=== PATIENT | female | born 1970 | race Caucasian/White ===

== ENCOUNTER 2016-08-05 08:42 | Inpatient (IN) | payer MEDICARE, OTHER ==
[2016-08-05] MEDS ORDERED: RX INFO: IV CONTRAST WAS GIVEN 1 EACH MISC MISCELLANE PRN (09:29)
[2016-08-05] MEDS ORDERED: IOHEXOL 350 MG/ML 25 ML BOTTLE (ORAL USE) PO PRN (09:31)
[2016-08-05 10:02] LABS: Basophils # (A) 0.1 k/uL (0-0.2); Basophils % (A) 1 %; CH 27.5; CHCM 33.7; Eosinophils # (A) 0.1 k/uL (0-0.7); Eosinophils % (A) 1 %; HDW 3.06; HGB 10.7 gm/dL (11.4-16.0); Luc # (Auto) 0.11; Luc % (Auto) 2; Lymphocytes # (A) 1.8 k/uL (1.0-4.8); Lymphocytes % (A) 25 %; MCH 26.6 pg (25.0-35.0); MCHC 32.5 g/dL (31.0-37.0); MCV 81.7 fL (80.0-100.0); Mean Platelet Volume 7.3; Monocytes # (A) 0.3 k/uL (0-1.0); Monocytes % (A) 4 %; Neutrophils # (A) 4.7 k/uL (1.3-7.7); Neutrophils % (A) 67 %; RBC 4.03 m/uL (3.80-5.40); RDW 15.6 % (11.5-15.5); WBC 7.1 k/uL (3.8-10.6)
[2016-08-05 10:14] LABS: Appearance,Urine Clear (Clear); Bacteria,Urine Rare /hpf; Bilirubin,Urine Negative (Negative); Glucose,Urine (UA) Negative (Negative); Ketones,Urine Negative (Negative); Leukocyte Esterase,Urine Negative (Negative); Mucus,Urine Occasional /hpf; Nitrite,Urine Negative (Negative); Particle Count 6281; Protein,Urine Trace (Negative); RBC,Urine >182 /hpf (0-5); Specific Gravity,Urine 1.023 (1.001-1.035); Squamous Epithelial Cell,Urine 1 /hpf (0-4); UA Billing (MACRO vs. MICRO) MICRO; WBC,Urine 7 /hpf (0-5)
[2016-08-05] MEDS ORDERED: HYDROmorphone 1 MG/ML 1 ML SYRINGE IVP STA ×2 (10:17→10:53)
[2016-08-05] MEDS ORDERED: SODIUM CHLORIDE 0.9% 1,000 ML IV STA ×2 (10:17→10:55)
[2016-08-05] MEDS ORDERED: METOCLOPRAMIDE 5 MG/ML 2 ML VIAL IVP STA (10:17)
--- NOTE | 2016-08-05 10:20 | ED ---
General Adult HPI <Don Lake - Last Filed: 08/05/16 10:56> - General Source: patient, RN notes reviewed Mode of arrival: ambulatory Limitations: no limitations <Gemma Garibay - Last Filed: 08/05/16 11:40> - General Chief complaint: Nausea/Vomiting/Diarrhea Stated complaint: vomiting Time Seen by Provider: 08/05/16 09:46 - History of Present Illness Initial comments: 46-year-old female presents to the emergency department with a chief complaint of abdominal pain Patient states she's had abdominal pain for the last week or so. Patient states she has not had a bowel movement. He states that she needs to drink anything she had instant pain and feels nauseous. Patient states she has had multiple abdominal surgeries she's also underwent gastric bypass Dr. Gabriel. Patient states that she was concerned due to the intense abdominal pain so she called on-call surgical and she was referred to come here.Patient denies any recent fever, chills, shortness of breath, chest pain, back pain, vomiting, numbness or tingling, dysuria or hematuria, constipation or diarrhea, headaches or visual changes, or any other current symptoms. (Gemma Garibay) - Related Data Home Medications Medication Instructions Recorded Confirmed rOPINIRole HCL [Requip] 2 mg PO TID 09/21/14 08/05/16 Gabapentin 800 mg PO QID 03/30/15 08/05/16 Thiamine [Vitamin B-1] 100 mg PO DAILY 03/30/15 08/05/16 Albuterol Inhaler [Ventolin Hfa 2 puff INHALATION RT-Q6H PRN 11/28/15 08/05/16 Inhaler] Budesonide [Pulmicort Flexhaler] 2 puff INHALATION RT-BID 11/28/15 08/05/16 Cyanocobalamin [Vitamin B-12] 1,000 mcg PO DAILY 11/28/15 08/05/16 Calcium Carbonate [Calcium] 600 mg PO DAILY 08/05/16 08/05/16 Cholecalciferol [Vitamin D3] 5,000 unit PO DAILY 08/05/16 08/05/16 Cyclobenzaprine [Flexeril] 10 mg PO BID 08/05/16 08/05/16 Ferrous Sulfate [Feosol] 325 mg PO DAILY 08/05/16 08/05/16 Lisinopril [Zestril] 20 mg PO DAILY 08/05/16 08/05/16 Multivitamins, Thera [Multivitamin 1 tab PO DAILY 08/05/16 08/05/16 (formulary)] QUEtiapine [SEROquel] 50 mg PO HS 08/05/16 08/05/16 Scopolamine 1.5MG/72Hr Patch 1 patch TRANSDERM Q72H PRN 08/05/16 08/05/16 [TransDerm Scop] Sertraline [Zoloft] 50 mg PO DAILY 08/05/16 08/05/16 Zinc 50 mg PO DAILY 08/05/16 08/05/16 traMADol HCL [Ultram] 50 mg PO TID PRN 08/05/16 08/05/16 Allergies Allergy/AdvReac Type Severity Reaction Status Date / Time Sulfa (Sulfonamide Allergy Severe Anaphylaxis Verified 08/05/16 09:32 Antibiotics) morphine Allergy Itching Verified 08/05/16 09:32 adhesive AdvReac Itching Verified 08/05/16 09:32 artificial sweetners Allergy Nausea Uncoded 08/05/16 08:45 Review of Systems ROS Other: All systems not noted in ROS Statement are negative. <Don Lake - Last Filed: 08/05/16 10:56> ROS Other: All systems not noted in ROS Statement are negative. <Gemma Garibay - Last Filed: 08/05/16 11:40> ROS Statement: Those systems with pertinent positive or pertinent negative responses have been documented in the HPI. Past Medical History Past Medical History: Asthma, Blood Disorder, Chest Pain / Angina, COPD, Diabetes Mellitus, Fibromyalgia, GERD/Reflux, Hearing Disorder / Deafness, Hyperlipidemia, Hypertension, Liver Disease, Mitral Valve Prolapse (MVP), Osteoarthritis (OA), Respiratory Disorder, Sleep Apnea/CPAP/BIPAP Additional Past Medical History / Comment(s): MIGRAINES, MITRAL VALVE PROLAPSE, DEGENERATIVE DISC DISEASE, FATTY LIVER, 4 PINCHED NERVES, LEIDEN FACTOR 5, 20% HEARING LOSS ELIDIA., OCCASIONAL SWELLING IN LOWER EXT.NEUROPATHY, RLS, diabetes is in remission since surgery History of Any Multi-Drug Resistant Organisms: None Reported Past Surgical History: Adenoidectomy, Appendectomy, Bariatric Surgery, Breast Surgery, Section, Cholecystectomy, Ear Surgery, Heart Catheterization, Hernia Repair, Orthopedic Surgery, Tonsillectomy Additional Past Surgical History / Comment(s): ARTHROSCOPY RT KNEE X3, RT BREAST BX-NEG, (13) MYRINGOTOMYS. laparoscopic danielle-en-y with lysis of adhesions 10-26-13, Surgical wound debridement x3 10/26/13, SX TO REMOVED SCAR TISSUE FROM PREVIOUS ABDSX.EGD 09/08/14, 09-21-14 LAP EXAM- APPY SMALL BOWEL OBSTRUCTION LYSIS OFF ADHESIONS, 3 hernia repairs, 3 bowel resection Past Anesthesia/Blood Transfusion Reactions: No Reported Reaction Additional Past Anesthesia/Blood Transfusion Reaction / Comment(s): SEVERE HEADACHE AFTER LAST SCOPE Past Psychological History: Anxiety, Bipolar, Depression, PTSD Smoking Status: Former smoker Past Alcohol Use History: None Reported Past Drug Use History: None Reported - Past Family History Mother Family Medical History: Deep Vein Thrombosis (DVT), Hypertension, Pulmonary Embolus, Thyroid Disorder Additional Family Medical History / Comment(s): FACTOR 5 LEIDEN, MVP Father Family Medical History: Diabetes Mellitus, Hypertension, Myocardial Infarction ( [place]) Additional Family Medical History / Comment(s): AGE 59 [place] <Gemma Garibay - Last Filed: 08/05/16 11:40> General Exam <Don Lake - Last Filed: 08/05/16 10:56> Limitations: no limitations <Gemma Garibay - Last Filed: 08/05/16 11:40> - General Exam Comments Initial Comments: General: The patient is awake and alert, in no distress, and does not appear acutely ill. Eye: Pupils are equal, round and reactive to light, extra-ocular movements are intact; there is normal conjunctiva bilaterally. No signs of icterus. Ears, nose, mouth and throat: There are moist mucous membranes. Neck: The neck is supple, there is no tenderness. Cardiovascular: There is a regular rate and rhythm. No murmur, rub or gallop is appreciated. Respiratory: Lungs are clear to auscultation, respirations are non-labored, breath sounds are equal. No wheezes, stridor, rales, or rhonchi. Gastrointestinal: Soft, non-distended, mildly diffusely tender abdomen without masses or organomegaly noted. There is no rebound or guarding present. No CVA tenderness. Bowel sounds are unremarkable. Back: There is no tenderness to palpation in the midline. There is no obvious deformity. No rashes noted. Musculoskeletal: Normal ROM, no tenderness, There is no pedal edema. There is no calf tenderness or swelling. Sensation intact. Pulses equal bilaterally 2+. Neurological: CN II-XII intact, There are no obvious motor or sensory deficits. Coordination appears grossly intact. Speech is normal. Skin: Skin is warm and dry and no rashes or lesions are noted. Psychiatric: Cooperative, appropriate mood & affect, normal judgment. (Gemma Garibay) Course <Don Lake - Last Filed: 08/05/16 10:56> <Gemma Garibay - Last Filed: 08/05/16 11:40> Vital Signs 08/05/16 08:44 Temperature 98.0 F Pulse Rate 69 Respiratory 20 Rate Blood Pressure 198/80 O2 Sat by Pulse 99 Oximetry - Reevaluation(s) Reevaluation #1: 08/05/16 10:56 Patient reexamined by myself, Dr. Lake. Patient resting comfortably in bed still complains of discomfort 09/27. Patient states she's had this several times and usually the CAT scan is normal. Results reviewed. Abdomen soft with mild mid abdominal tenderness to palpation. Case was discussed in detail with Dr. Gabriel, who will admit her patient to observation and recommends IV fluids. (Don Lake) Medical Decision Making - Lab Data Result diagrams: 08/05/16 09:35 08/05/16 09:35 <Don Lake - Last Filed: 08/05/16 10:56> - Lab Data Result diagrams: 08/05/16 09:35 08/05/16 09:35 - Radiology Data Radiology results: report reviewed, image reviewed <Gemma Garibay - Last Filed: 08/05/16 11:40> - Medical Decision Making 46-year-old female presents to the emergency Department chief complaint of abdominal pain. At this time patient's CAT scan lab work is reviewed. Dr. Gabriel was contacted and we will with the patient to observation. Continue to clean the patient nothing by mouth and continue IV fluids. This was discussed patient and she hasn't agreement with plan (Gemma Garibay) - Lab Data Lab Results 08/05/16 08/05/16 08/05/16 Range/Units 09:35 09:35 09:35 WBC 7.1 (3.8-10.6) k/uL RBC 4.03 (3.80-5.40) m/uL Hgb 10.7 L (11.4-16.0) gm/dL Hct 33.0 L (34.0-46.0) % MCV 81.7 (80.0-100.0) fL MCH 26.6 (25.0-35.0) pg MCHC 32.5 (31.0-37.0) g/dL RDW 15.6 H (11.5-15.5) % Plt Count 249 (150-450) k/uL Neutrophils % 67 % Lymphocytes % 25 % Monocytes % 4 % Eosinophils % 1 % Basophils % 1 % Neutrophils # 4.7 (1.3-7.7) k/uL Lymphocytes # 1.8 (1.0-4.8) k/uL Monocytes # 0.3 (0-1.0) k/uL Eosinophils # 0.1 (0-0.7) k/uL Basophils # 0.1 (0-0.2) k/uL Sodium 140 (137-145) mmol/L Potassium 3.7 (3.5-5.1) mmol/L Chloride 104 (98-107) mmol/L Carbon Dioxide 25 (22-30) mmol/L Anion Gap 11 mmol/L BUN 9 (7-17) mg/dL Creatinine 0.50 L (0.52-1.04) mg/dL Est GFR (MDRD) Af Amer >60 (>60 ml/min/1.73 sqM) Est GFR (MDRD) Non-Af >60 (>60 ml/min/1.73 sqM) Glucose 123 H (74-99) mg/dL Plasma Lactic Acid Esteban 1.1 (0.7-2.0) mmol/L Calcium 8.9 (8.4-10.2) mg/dL Total Bilirubin 0.7 (0.2-1.3) mg/dL AST 27 (14-36) U/L ALT 33 (9-52) U/L Alkaline Phosphatase 125 (38-126) U/L Total Protein 7.0 (6.3-8.2) g/dL Albumin 4.2 (3.5-5.0) g/dL Amylase 54 (30-110) U/L Lipase 45 (23-300) U/L Urine Color Urine Appearance (Clear) Urine pH (5.0-8.0) Ur Specific [place] (1.001-1.035) Urine Protein (Negative) Urine Glucose (UA) (Negative) Urine Ketones (Negative) Urine Blood (Negative) Urine Nitrite (Negative) Urine Bilirubin (Negative) Urine Urobilinogen (<2.0) mg/dL Ur Leukocyte Esterase (Negative) Urine RBC (0-5) /hpf Urine WBC (0-5) /hpf Ur Squamous Epith Cells (0-4) /hpf Urine Bacteria (None) /hpf Urine Mucus (None) /hpf 08/05/16 Range/Units 09:35 WBC (3.8-10.6) k/uL RBC (3.80-5.40) m/uL Hgb (11.4-16.0) gm/dL Hct (34.0-46.0) % MCV (80.0-100.0) fL MCH (25.0-35.0) pg MCHC (31.0-37.0) g/dL RDW (11.5-15.5) % Plt Count (150-450) k/uL Neutrophils % % Lymphocytes % % Monocytes % % Eosinophils % % Basophils % % Neutrophils # (1.3-7.7) k/uL Lymphocytes # (1.0-4.8) k/uL Monocytes # (0-1.0) k/uL Eosinophils # (0-0.7) k/uL Basophils # (0-0.2) k/uL Sodium (137-145) mmol/L Potassium (3.5-5.1) mmol/L Chloride (98-107) mmol/L Carbon Dioxide (22-30) mmol/L Anion Gap mmol/L BUN (7-17) mg/dL Creatinine (0.52-1.04) mg/dL Est GFR (MDRD) Af Amer (>60 ml/min/1.73 sqM) Est GFR (MDRD) Non-Af (>60 ml/min/1.73 sqM) Glucose (74-99) mg/dL Plasma Lactic Acid Esteban (0.7-2.0) mmol/L Calcium (8.4-10.2) mg/dL Total Bilirubin (0.2-1.3) mg/dL AST (14-36) U/L ALT (9-52) U/L Alkaline Phosphatase (38-126) U/L Total Protein (6.3-8.2) g/dL Albumin (3.5-5.0) g/dL Amylase (30-110) U/L Lipase (23-300) U/L Urine Color Yellow Urine Appearance Clear (Clear) Urine pH 6.0 (5.0-8.0) Ur Specific [place] 1.023 (1.001-1.035) Urine Protein Trace H (Negative) Urine Glucose (UA) Negative (Negative) Urine Ketones Negative (Negative) Urine Blood Large H (Negative) Urine Nitrite Negative (Negative) Urine Bilirubin Negative (Negative) Urine Urobilinogen 4.0 (<2.0) mg/dL Ur Leukocyte Esterase Negative (Negative) Urine RBC >182 H (0-5) /hpf Urine WBC 7 H (0-5) /hpf Ur Squamous Epith Cells 1 (0-4) /hpf Urine Bacteria Rare H (None) /hpf Urine Mucus Occasional H (None) /hpf Disposition <Don Lake - Last Filed: 08/05/16 10:56> Time of Disposition: 11:40 Decision Date: 08/05/16 Decision Time: 11:40 <Gemma Garibay - Last Filed: 08/05/16 11:40> Clinical Impression: Intractable abdominal pain Disposition: ADMITTED IP TO THIS [facility] Condition: Stable Referrals: Lucía Pratt MD [Primary Care Provider] - 1-2 days
[2016-08-05 10:26] LABS: ALT 33 U/L (9-52); AST 27 U/L (14-36); Alkaline Phosphatase 125 U/L (38-126); Anion Gap 11 mmol/L; Blood Urea Nitrogen 9 mg/dL (7-17); Calcium 8.9 mg/dL (8.4-10.2); Carbon Dioxide 25 mmol/L (22-30); Chloride 104 mmol/L (98-107); Glucose 123 mg/dL (74-99); Non-African American GFR(MDRD) >60 (>60 ml/min/1.73 sqM); Potassium 3.7 mmol/L (3.5-5.1); Sodium 140 mmol/L (137-145); Total Bilirubin 0.7 mg/dL (0.2-1.3)
[2016-08-05 10:27] LABS: Amylase 54 U/L (30-110)
--- NOTE | 2016-08-05 10:44 | CT ---
EXAMINATION TYPE: CT abdomen pelvis w con DATE OF EXAM: 08/05/2016 COMPARISON: NONE HISTORY: Pain, bariatric surgery history of multiple bowel obstructions CT DLP: 1659.2 mGycm Automated exposure control for dose reduction was used. CONTRAST: CT scan of the abdomen pelvis is performed with IV Contrast, patient injected with 100 mL of Omnipaqu e 300. FINDINGS- LUNG BASES- No significant abnormality is appreciated. LIVER/GB-post cholecystectomy changes noted. PANCREAS- No gross abnormality is seen. SPLEEN- No gross abnormality is seen. ADRENALS- No gross abnormality is seen. KIDNEYS/BLADDER- no hydronephrosis or hydronephrosis. Hypodensities within the kidneys are too small to characterize. BOWEL- no bowel dilatation. Bowel gas pattern nonspecific with evidence of previous surgery. LYMPH NODES- No greater than 1cm abdominal or pelvic lymph nodes areappreciated. OSSEOUS STRUCTURES-hypertrophic and degenerative change of the spine. Canal stenosis involving the lo wer lumbar spine suspected.. OTHER- 1 cm hypoattenuation right adnexa may be related to small ovarian cyst. IMPRESSION- 1. Bowel gas pattern is nonspecific with no dilation seen to suggest obstruction. Appendix is not see n exam nondiagnostic for appendicitis. No inflammatory changes right lower quadrant. 2. Small fluid density structure right adnexa likely related to small ovarian cyst measuring 1.7 cm
[2016-08-05] MEDS ORDERED: ONDANSETRON 4 MG/2 ML VIAL IVP STA (10:53)
[2016-08-05] MEDS ORDERED: NALOXONE 0.4 MG/ML 1 ML VIAL IV PRN (11:40)
[2016-08-05] MEDS ORDERED: traMADol 50 MG TAB PO PRN (11:41)
[2016-08-05] MEDS ORDERED: ALBUTEROL NEBULIZED 2.5 MG/3 ML INHALATION PRN (11:41)
[2016-08-05] MEDS ORDERED: SCOPOLAMINE 1.5MG/72HR PATCH TRANSDERM PRN (11:41)
[2016-08-05] MEDS ORDERED: SODIUM CHLORIDE 0.9% 3,000 ML IV ONE (13:08)
[2016-08-05 13:26] VITALS: BMI 41.5
[2016-08-05] MEDS: SODIUM CHLORIDE 0.9% 1,000 ML IV SCH ×2 (14:14→20:50)
[2016-08-05] MEDS: GABAPENTIN 400 MG CAP PO SCH ×3 (14:14→21:00)
[2016-08-05] MEDS: HYDROmorphone 1 MG/ML 1 ML SYRINGE IVP PRN ×2 (15:28→19:08)
[2016-08-05] MEDS ORDERED: DEXAMETHASONE SOD PHOSPHATE 10 MG/ML 1 ML VIAL IV STA (19:59)
--- NOTE | 2016-08-05 20:03 | P.GSHP ---
History of Present Illness H&P Date: 08/05/16 Chief Complaint: Abdominal pain The patient is a 46-year-old female with previous history of gastric bypass who comes in with a 5 day history of severe epigastric to left upper quadrant abdominal pain. She had developed pain after eating taco salad. She reports "puking all the time.". She's had previous multiple diagnostic laparoscopies for abdominal pain which had resolved secondary to lysis of adhesions. She reports immediate weight loss from 220+ pounds down to 213 pounds unintentionally. She reports difficulty with maintaining her fluid intake. She has been admitted secondary to severe dehydration as well as abdominal pain history of gastric bypass. - Review of Systems Comment: CONSTITUTIONAL: Denies any fever or chills. Maintain weight loss over 85 pounds. HEENT: Denies any trouble with vision, hearing or nosebleeds. Has difficulty swallowing. LYMPHATIC: The patient denies any lumps and bumps around the neck. ENDOCRINE: Denies any thyroid disorders. Has blood sugar glucose intolerance. RESPIRATORY: Denies pneumonia. Denies any troubles with breathing or dyspnea on exertion. CARDIOVASCULAR: Denies any chest pain, palpitations, or recent heart attacks. GASTROINTESTINAL: Has heart burn, constipation. No bright red blood per rectum. GENITOURINARY: Denies any blood in urine or increased urinary frequency. MUSCULOSKELETAL: Has back pain, stiffness, joint arthritis. NEUROLOGIC: Has fibromyalgia. No reports of stroke. PSYCHIATRIC: Denies depression or suidical ideation. HEMATOLOGIC: Denies any abnormal bleeding or bruising. Past Medical History Past Medical History: Asthma, Blood Disorder, Chest Pain / Angina, COPD, Diabetes Mellitus, Fibromyalgia, GERD/Reflux, Hearing Disorder / Deafness, Hyperlipidemia, Hypertension, Liver Disease, Mitral Valve Prolapse (MVP), Osteoarthritis (OA), Respiratory Disorder, Sleep Apnea/CPAP/BIPAP Additional Past Medical History / Comment(s): MIGRAINES, MITRAL VALVE PROLAPSE, DEGENERATIVE DISC DISEASE, FATTY LIVER, 4 PINCHED NERVES, LEIDEN FACTOR 5, 20% HEARING LOSS ELIDIA., OCCASIONAL SWELLING IN LOWER EXT.NEUROPATHY, RLS, diabetes is in remission since surgery History of Any Multi-Drug Resistant Organisms: None Reported Past Surgical History: Adenoidectomy, Appendectomy, Bariatric Surgery, Breast Surgery, Section, Cholecystectomy, Ear Surgery, Heart Catheterization, Hernia Repair, Orthopedic Surgery, Tonsillectomy Additional Past Surgical History / Comment(s): ARTHROSCOPY RT KNEE X3, RT BREAST BX-NEG, (13) MYRINGOTOMYS. laparoscopic danielle-en-y with lysis of adhesions 10-26-13, Surgical wound debridement x3 10/26/13, SX TO REMOVED SCAR TISSUE FROM PREVIOUS ABDSX.EGD 09/08/14, 09-21-14 LAP EXAM- APPY SMALL BOWEL OBSTRUCTION LYSIS OFF ADHESIONS, 3 hernia repairs, 3 bowel resection Past Anesthesia/Blood Transfusion Reactions: No Reported Reaction Additional Past Anesthesia/Blood Transfusion Reaction / Comment(s): SEVERE HEADACHE AFTER LAST SCOPE Past Psychological History: Anxiety, Bipolar, Depression, PTSD Additional Psychological History / Comment(s): SOCIAL PHOBIA Smoking Status: Former smoker Past Alcohol Use History: None Reported Past Drug Use History: None Reported - Past Family History Mother Family Medical History: Deep Vein Thrombosis (DVT), Hypertension, Pulmonary Embolus, Thyroid Disorder Additional Family Medical History / Comment(s): FACTOR 5 LEIDEN, MVP Father Family Medical History: Diabetes Mellitus, Hypertension, Myocardial Infarction ( [place]) Additional Family Medical History / Comment(s): AGE 59 [place] Medications and Allergies Home Medications Medication Instructions Recorded Confirmed Type rOPINIRole HCL [Requip] 2 mg PO TID 09/21/14 08/05/16 History Gabapentin 800 mg PO QID 03/30/15 08/05/16 History Thiamine [Vitamin B-1] 100 mg PO DAILY 03/30/15 08/05/16 History Albuterol Inhaler [Ventolin Hfa 2 puff INHALATION RT-Q6H PRN 11/28/15 08/05/16 History Inhaler] Budesonide [Pulmicort Flexhaler] 2 puff INHALATION RT-BID 11/28/15 08/05/16 History Cyanocobalamin [Vitamin B-12] 1,000 mcg PO DAILY 11/28/15 08/05/16 History Calcium Carbonate [Calcium] 600 mg PO DAILY 08/05/16 08/05/16 History Cholecalciferol [Vitamin D3] 5,000 unit PO DAILY 08/05/16 08/05/16 History Cyclobenzaprine [Flexeril] 10 mg PO BID 08/05/16 08/05/16 History Ferrous Sulfate [Feosol] 325 mg PO DAILY 08/05/16 08/05/16 History Lisinopril [Zestril] 20 mg PO DAILY 08/05/16 08/05/16 History Multivitamins, Thera [Multivitamin 1 tab PO DAILY 08/05/16 08/05/16 History (formulary)] QUEtiapine [SEROquel] 50 mg PO HS 08/05/16 08/05/16 History Scopolamine 1.5MG/72Hr Patch 1 patch TRANSDERM Q72H PRN 08/05/16 08/05/16 History [TransDerm Scop] Sertraline [Zoloft] 50 mg PO DAILY 08/05/16 08/05/16 History Zinc 50 mg PO DAILY 08/05/16 08/05/16 History traMADol HCL [Ultram] 50 mg PO TID PRN 08/05/16 08/05/16 History Allergies Allergy/AdvReac Type Severity Reaction Status Date / Time Sulfa (Sulfonamide Allergy Severe Anaphylaxis Verified 08/05/16 09:32 Antibiotics) morphine Allergy Itching Verified 08/05/16 09:32 adhesive AdvReac Itching Verified 08/05/16 09:32 artificial sweetners Allergy Nausea Uncoded 08/05/16 08:45 Surgical - Exam Vital Signs Temp Pulse Resp BP Pulse Ox 98.0 F 69 20 198/80 99 08/05/16 08:44 08/05/16 08:44 08/05/16 08:44 08/05/16 08:44 08/05/16 08:44 GENERAL: Well developed and in no acute distress. Pleasant. HEENT: No sclera icterus. Extraocular movements grossly intact. Moist buccal mucosa. Head is atraumatic, normocephalic. Hears conversational speech. No nasal drainage. NECK: Supple without lymphadenopathy. No JV distention. CHEST: Non-labored respirations and equal bilateral excursions. CARDIOVASCULAR: Regular rate and rhythm. Palpable 2+ radial pulses. ABDOMEN: Soft. Nondistended. Mild tenderness along the epigastrium and left upper quadrant. No diffuse peritonitis. MUSCULOSKELETAL: No clubbing, cyanosis or edema. NEUROLOGIC: No focal or lateralizing signs. PSYCH: Appropriate affect. Alert and oriented to person, place and time. Results - Labs 08/05/16 09:35 08/05/16 09:35 Abnormal Lab Results - Last 24 Hours (Table) 08/05/16 08/05/16 08/05/16 Range/Units 09:35 09:35 09:35 Hgb 10.7 L (11.4-16.0) gm/dL Hct 33.0 L (34.0-46.0) % RDW 15.6 H (11.5-15.5) % Creatinine 0.50 L (0.52-1.04) mg/dL Glucose 123 H (74-99) mg/dL Urine Protein Trace H (Negative) Urine Blood Large H (Negative) Urine RBC >182 H (0-5) /hpf Urine WBC 7 H (0-5) /hpf Urine Bacteria Rare H (None) /hpf Urine Mucus Occasional H (None) /hpf Diabetes panel 08/05/16 Range/Units 09:35 Sodium 140 (137-145) mmol/L Potassium 3.7 (3.5-5.1) mmol/L Chloride 104 (98-107) mmol/L Carbon Dioxide 25 (22-30) mmol/L BUN 9 (7-17) mg/dL Creatinine 0.50 L (0.52-1.04) mg/dL Glucose 123 H (74-99) mg/dL Calcium 8.9 (8.4-10.2) mg/dL AST 27 (14-36) U/L ALT 33 (9-52) U/L Alkaline Phosphatase 125 (38-126) U/L Total Protein 7.0 (6.3-8.2) g/dL Albumin 4.2 (3.5-5.0) g/dL Calcium panel 08/05/16 Range/Units 09:35 Calcium 8.9 (8.4-10.2) mg/dL Albumin 4.2 (3.5-5.0) g/dL Pituitary panel 08/05/16 Range/Units 09:35 Sodium 140 (137-145) mmol/L Potassium 3.7 (3.5-5.1) mmol/L Chloride 104 (98-107) mmol/L Carbon Dioxide 25 (22-30) mmol/L BUN 9 (7-17) mg/dL Creatinine 0.50 L (0.52-1.04) mg/dL Glucose 123 H (74-99) mg/dL Calcium 8.9 (8.4-10.2) mg/dL Adrenal panel 06/18/17 Range/Units 09:35 Sodium 140 (137-145) mmol/L Potassium 3.7 (3.5-5.1) mmol/L Chloride 104 (98-107) mmol/L Carbon Dioxide 25 (22-30) mmol/L BUN 9 (7-17) mg/dL Creatinine 0.50 L (0.52-1.04) mg/dL Glucose 123 H (74-99) mg/dL Calcium 8.9 (8.4-10.2) mg/dL Total Bilirubin 0.7 (0.2-1.3) mg/dL AST 27 (14-36) U/L ALT 33 (9-52) U/L Alkaline Phosphatase 125 (38-126) U/L Total Protein 7.0 (6.3-8.2) g/dL Albumin 4.2 (3.5-5.0) g/dL - Imaging CT scan - abdomen: report reviewed, image reviewed CT scan - pelvis: report reviewed, image reviewed (No free air identified. No fluid collection or free fluid identified. No bowel obstruction identified.) Assessment and Plan (1) Dehydration, severe Status: Acute (2) Dysphagia Status: Acute (3) Intractable nausea and vomiting Status: Acute (4) Diabetes type 2, controlled Status: Chronic (5) H/O gastric bypass Status: Chronic (6) Morbid obesity with BMI of 40.0-44.9, adult Status: Chronic Plan: 1. I reviewed the findings of her computed tomography scan of her abdomen and pelvis. No acute findings of bowel obstruction was found. 2. Recommend IV fluid hydration over 3 L normal saline. 3. Recommend correction of electrolyte abnormalities. 4. With her history of dysphagia, recommend upper endoscopy possible balloon dilatation. 5. Antiemetics including Decadron. Time with Patient: Greater than 30
[2016-08-05] MEDS ORDERED: METOCLOPRAMIDE 5 MG/ML 2 ML VIAL IVP SCH (20:15)
[2016-08-05] MEDS: BUDESONIDE 1 MG/2 ML NEBU INHALATION SCH (20:28)
[2016-08-05] MEDS: POTASSIUM CHLORIDE 20 MEQ in WATER FOR INJECTION 1 100ML.BAG IVPB SCH ×2 (20:44→23:02)
[2016-08-05] MEDS: CYCLOBENZAPRINE 10 MG TAB PO SCH (20:48)
[2016-08-05] MEDS: QUEtiapine 50 MG TAB PO SCH (20:49)
[2016-08-06] MEDS: HYDROmorphone 1 MG/ML 1 ML SYRINGE IVP PRN ×6 (01:29→22:08)
[2016-08-06] MEDS: ONDANSETRON 4 MG/2 ML VIAL IVP PRN ×3 (01:29→18:39)
[2016-08-06 07:02] LABS: Basophils % (A) 0 %; CH 27.3; CHCM 33.5; Eosinophils % (A) 1 %; HCT 30.8 % (34.0-46.0); HDW 3.13; HGB 10.2 gm/dL (11.4-16.0); Luc # (Auto) 0.05; Luc % (Auto) 1; Lymphocytes # (A) 0.9 k/uL (1.0-4.8); Lymphocytes % (A) 14 %; MCH 27.1 pg (25.0-35.0); MCHC 33.2 g/dL (31.0-37.0); MCV 81.7 fL (80.0-100.0); Mean Platelet Volume 7.1; Monocytes # (A) 0.2 k/uL (0-1.0); Monocytes % (A) 3 %; Neutrophils # (A) 5.2 k/uL (1.3-7.7); Neutrophils % (A) 82 %; RBC 3.77 m/uL (3.80-5.40); RDW 15.2 % (11.5-15.5); WBC 6.4 k/uL (3.8-10.6); WBC (Perox) 6.61
[2016-08-06 07:15] LABS: ALT 28 U/L (9-52); AST 20 U/L (14-36); Alkaline Phosphatase 109 U/L (38-126); Anion Gap 9 mmol/L; Blood Urea Nitrogen 6 mg/dL (7-17); Calcium 8.8 mg/dL (8.4-10.2); Carbon Dioxide 26 mmol/L (22-30); Chloride 106 mmol/L (98-107); Glucose 163 mg/dL (74-99); Non-African American GFR(MDRD) >60 (>60 ml/min/1.73 sqM); Potassium 4.5 mmol/L (3.5-5.1); Sodium 141 mmol/L (137-145); Total Bilirubin 0.8 mg/dL (0.2-1.3); Total Protein 6.3 g/dL (6.3-8.2)
[2016-08-06] MEDS: BUDESONIDE 1 MG/2 ML NEBU INHALATION SCH ×2 (09:25→21:36)
[2016-08-06] MEDS ORDERED: PROPOFOL 10 MG/ML 20 ML VIAL IV ONE (09:44)
[2016-08-06] MEDS ORDERED: fentaNYL (PF) 50 MCG/ML 2 ML AMP ONE (09:44)
[2016-08-06] MEDS ORDERED: MIDAZOLAM 2 MG/2 ML VIAL ONE (09:44)
[2016-08-06] MEDS ORDERED: IV FLUID CONTINUATION 1,000 ML IV ONE (09:47)
--- NOTE | 2016-08-06 10:00 | P.PCN ---
Date of Procedure: 08/06/16 Preoperative Diagnosis: Dysphagia, epigastric abdominal pain Postoperative Diagnosis: Same Procedure(s) Performed: EGJ with balloon dilation 20 mm Implants: Anesthesia: MAC Surgeon: Latricia Dumont Pathology: none sent Condition: stable Indications for Procedure: Operative Findings: Scope advanced entire full length of the scope 100 cm. No additional pathology identified. Gastrojejunal jejunostomy balloon to 20 mm. Patient tolerated procedure well. Description of Procedure:
[2016-08-06] MEDS: SODIUM CHLORIDE 0.9% 1,000 ML IV SCH ×2 (10:56→22:00)
[2016-08-06] MEDS: CHOLECALCIFEROL 1,000 UNIT TAB PO SCH (10:57)
[2016-08-06] MEDS: CYANOCOBALAMIN 500 MCG TAB PO SCH (10:57)
[2016-08-06] MEDS: CALCIUM CARB-VIT D 500MG-200UN 1 EACH TAB PO SCH (10:57)
[2016-08-06] MEDS: FERROUS SULFATE 325 MG TAB PO SCH (10:58)
[2016-08-06] MEDS: GABAPENTIN 400 MG CAP PO SCH ×4 (10:58→22:00)
[2016-08-06] MEDS: LISINOPRIL 20 MG TAB PO SCH (10:58)
[2016-08-06] MEDS: SERTRALINE 50 MG TAB PO SCH (10:59)
[2016-08-06] MEDS: THIAMINE 100 MG TAB PO SCH (10:59)
[2016-08-06] MEDS: ZINC SULFATE 220 MG CAP PO SCH (10:59)
[2016-08-06] MEDS: CYCLOBENZAPRINE 10 MG TAB PO SCH ×2 (10:59→22:00)
[2016-08-06] MEDS: MULTIVITAMINS, THERA 1 EACH TAB PO SCH (11:05)
[2016-08-06] MEDS ORDERED: MAGNESIUM HYDROXIDE 2,400 MG/10 ML CUP PO PRN (21:33)
[2016-08-06] MEDS ORDERED: BISACODYL 10 MG SUPP RECTAL STA (21:36)
[2016-08-06] MEDS: QUEtiapine 50 MG TAB PO SCH (22:00)
[2016-08-07] MEDS: ONDANSETRON 4 MG/2 ML VIAL IVP PRN ×3 (01:52→18:11)
[2016-08-07] MEDS: HYDROmorphone 1 MG/ML 1 ML SYRINGE IVP PRN ×6 (01:54→22:46)
[2016-08-07] MEDS: SODIUM CHLORIDE 0.9% 1,000 ML IV SCH ×3 (05:39→22:46)
[2016-08-07] MEDS: BUDESONIDE 1 MG/2 ML NEBU INHALATION SCH ×2 (08:07→20:22)
--- NOTE | 2016-08-07 08:26 | P.PN ---
Progress Note - Text Patient seen and evaluated. She still reports abdominal pain. She reports intermittent vomiting however not documented as she did not notify her nurse. She is asked to notify her nurse for any emesis. We'll proceed with upper GI with small bowel follow-through with history of gastric bypass. As a last resort, diagnostic laparoscopy should she continue to have persistent abdominal pain. Recommend inpatient hospitalization for chronic abdominal pain, previous history of intussusception. Patient also reports intolerance to artificial sweeteners which causes worse migraine. We'll adjust her diet accordingly.
[2016-08-07] MEDS: CALCIUM CARB-VIT D 500MG-200UN 1 EACH TAB PO SCH (11:12)
[2016-08-07] MEDS: CHOLECALCIFEROL 1,000 UNIT TAB PO SCH (11:12)
[2016-08-07] MEDS: CYCLOBENZAPRINE 10 MG TAB PO SCH ×2 (11:13→20:53)
[2016-08-07] MEDS: FERROUS SULFATE 325 MG TAB PO SCH (11:13)
[2016-08-07] MEDS: CYANOCOBALAMIN 500 MCG TAB PO SCH (11:13)
[2016-08-07] MEDS: SERTRALINE 50 MG TAB PO SCH (11:13)
[2016-08-07] MEDS: GABAPENTIN 400 MG CAP PO SCH ×4 (11:13→22:46)
[2016-08-07] MEDS: THIAMINE 100 MG TAB PO SCH (11:14)
[2016-08-07] MEDS: MULTIVITAMINS, THERA 1 EACH TAB PO SCH (11:14)
[2016-08-07] MEDS: ZINC SULFATE 220 MG CAP PO SCH (11:14)
--- NOTE | 2016-08-07 11:15 | FL ---
EXAMINATION TYPE: FL UGI w small bowel DATE OF EXAM: 08/07/2016 COMPARISON: CT abdomen pelvis 08/05/2016 HISTORY: Abdominal pain, status post multiple abdominal surgeries, bowel obstructions Patient was given barium to drink. Swallowing mechanism is normal. Postop changes noted to the stomach and small bowel. There is no obst ruction to flow. No evident extravasation. Fold pattern is within normal limits. Transit time is norm al. Terminal ileum shows an unremarkable appearance. No fixation of bowel loops, extravasation, fistu la formation evident. IMPRESSION: Postop changes. No evident bowel obstruction
[2016-08-07] MEDS: LISINOPRIL 20 MG TAB PO SCH (11:23)
--- NOTE | 2016-08-07 13:31 | P.PN ---
Subjective 46-year-old female being seen. Currently is sitting up in bed. Patient reports that she eats or drinks anything it causes pain patient points to the epigastric areas to the reference point. Patient is asking for diet to be advanced. Did discuss with the patient has attempted to advance the diet if she continues to report having pain when she eats or drinks. Additionally patient continues to report nausea sensation states that she has had an emesis. Nursing reports no documented emesis noted. Patient states she cannot tolerate any artificial sweeteners it will cause a migraine headache. Patient did have an upper GI with small bowel follow-through no evidence of a bowel obstruction Objective - Vital Signs Vital signs: Vital Signs Temp 97.9 F 08/07/16 01:43 Pulse 61 08/07/16 08:00 Resp 16 08/07/16 08:00 BP 111/57 08/07/16 01:43 Pulse Ox 93 L 08/07/16 01:43 Intake & Output 08/06/16 08/07/16 08/07/16 18:59 06:59 18:59 Intake Total 200 1200 Balance 200 1200 Weight 96.61 kg Intake: IV 200 1200 Sodium Chloride 0.9% 1, 1200 000 ml @ 100 mls/hr IV . Q10H [facility] Rx#:[id number] Other: Voiding Method Toilet Toilet Toilet # Voids 2 2 - Exam Physical exam 46-year-old female sitting up in a bed appearing in no acute distress states has pain in her epigastric area on a scale from 1-10 rates it an 8 patient states that she eats or drinks something causes pain patients asking for the diet to be advanced Lungs essentially clear adequate air movement Heart S1-S2 audible and regular Abdomen soft no facial grimacing with palpitation to the abdominal wall no frequent stooling not distended nontender states urinating no difficulty Extremities no edema - Labs CBC & Chem 7: 08/06/16 06:46 08/06/16 06:46 Assessment and Plan Plan: Impression Present on admission epigastric abdominal pain with dysphagia status post EGD with balloon dilatation done on the 06 of August present on admission poor oral intake with severe clinical dehydration Previous multiple diagnostic laparoscopic for abdominal pain which has resolved secondary to lysis of adhesions Morbid obesity BMI 41 Type 2 diabetes controlled History of gastric bypass Persistent intractable nausea vomiting with clinical dehydration Plan Possible diagnostic laparoscopic if patient continues to have persistent epigastric pain Notify nursing for documentation of any emesis this was reinforced with the patient Continue with the current diet adjust accordingly Avoid artificial sweeteners IV fluid for hydration DVT and GI prophylaxis further recommendations pending life manager notified patient needs to be admitted to the hospital currently on observation status The above dictated assessment and findings were discussed with dr Tim Caceres and the plan of care have been dictated as directed. Jacquie Ivy nurse practitioner acting as a scribe for Dr. Dumont
[2016-08-07] MEDS: QUEtiapine 50 MG TAB PO SCH (20:53)
[2016-08-07] MEDS ORDERED: LORazepam 2 MG/ML SYRINGE IV PRN (21:04)
[2016-08-08] MEDS: ONDANSETRON 4 MG/2 ML VIAL IVP PRN ×3 (01:46→17:15)
[2016-08-08] MEDS: HYDROmorphone 1 MG/ML 1 ML SYRINGE IVP PRN ×5 (01:48→22:05)
[2016-08-08] MEDS: BUDESONIDE 1 MG/2 ML NEBU INHALATION SCH ×2 (08:36→20:24)
[2016-08-08] MEDS: LISINOPRIL 20 MG TAB PO SCH (09:37)
[2016-08-08] MEDS: CYCLOBENZAPRINE 10 MG TAB PO SCH ×2 (09:37→21:03)
[2016-08-08] MEDS: GABAPENTIN 400 MG CAP PO SCH ×4 (09:37→21:03)
[2016-08-08] MEDS: ZINC SULFATE 220 MG CAP PO SCH (09:50)
[2016-08-08] MEDS: CHOLECALCIFEROL 1,000 UNIT TAB PO SCH (09:50)
[2016-08-08] MEDS: THIAMINE 100 MG TAB PO SCH (09:50)
[2016-08-08] MEDS: CYANOCOBALAMIN 500 MCG TAB PO SCH (09:50)
[2016-08-08] MEDS: CALCIUM CARB-VIT D 500MG-200UN 1 EACH TAB PO SCH (09:50)
[2016-08-08] MEDS: FERROUS SULFATE 325 MG TAB PO SCH (09:50)
[2016-08-08] MEDS: SERTRALINE 50 MG TAB PO SCH (09:51)
[2016-08-08] MEDS: SODIUM CHLORIDE 0.9% 1,000 ML IV SCH (09:52)
[2016-08-08] MEDS ORDERED: ceFAZolin 2 GM in SODIUM CHLORIDE 0.9% 100 ML IVPB ONE (10:41)
[2016-08-08] MEDS ORDERED: ACETAMINOPHEN IV (For NPO) 1,000 MG in EMPTY BAG 1 BAG IVPB ONE (10:41)
[2016-08-08] MEDS ORDERED: ENOXAPARIN 40 MG/0.4 ML SYRINGE SQ ONE (10:41)
--- NOTE | 2016-08-08 10:43 | P.HPADDEND ---
H&P Addendum H&P Addendum Date: 08/08/16 Patient still complaining of abdominal pain however now worse. Despite multiple diagnostic studies, no specific foci of cause of her pain is identified. She points primarily to the left upper quadrant. She is personal history of previous intra-abdominal adhesions requiring lysis as well as gastric bypass which is high risk. We'll proceed with laparoscopic lysis of adhesions.
[2016-08-08] MEDS ORDERED: LACTATED RINGERS 1,000 ML IV ONE ×2 (12:07→15:11)
[2016-08-08] MEDS ORDERED: MIDAZOLAM 2 MG/2 ML VIAL IV ONE (12:29)
[2016-08-08] MEDS ORDERED: LIDOCAINE 1% INJ 10MG/ML (20 ML MDV) ONE (14:22)
[2016-08-08] MEDS ORDERED: PROPOFOL 10 MG/ML 20 ML VIAL IV ONE (14:22)
[2016-08-08] MEDS ORDERED: ROCURONIUM BROMIDE 10 MG/ML 10 ML VIAL IV ONE (14:22)
[2016-08-08] MEDS ORDERED: MIDAZOLAM 2 MG/2 ML VIAL ONE (14:22)
[2016-08-08] MEDS ORDERED: NEOSTIGMINE 1 MG/ML 10 ML VIAL ONE (14:22)
[2016-08-08] MEDS ORDERED: SUCCINYLCHOLINE CHLORIDE 100 MG/5 ML SYR IV ONE (14:22)
[2016-08-08] MEDS ORDERED: fentaNYL (PF) 50 MCG/ML 2 ML AMP ONE (14:22)
[2016-08-08] MEDS ORDERED: GLYCOPYRROLATE 0.2 MG/ML 2 ML VIAL ONE (14:22)
[2016-08-08] MEDS ORDERED: BUPIVACAIN-EPI 0.5%-1:200,000 30 ML VIAL SQ ONE (14:52)
[2016-08-08] MEDS ORDERED: NALOXONE 0.4 MG/ML 1 ML VIAL IV PRN (15:36)
[2016-08-08 15:55] LABS: Glucose,Whole Blood 87 mg/dL (75-99)
[2016-08-08] MEDS ORDERED: HYDROmorphone 1 MG/ML 1 ML SYRINGE IVP ONE ×2 (15:58→16:05)
[2016-08-08 16:08] VITALS: RESP 16
[2016-08-08] MEDS: MULTIVITAMINS, THERA 1 EACH TAB PO SCH (16:32)
[2016-08-08] MEDS: QUEtiapine 50 MG TAB PO SCH (21:03)
[2016-08-08] MEDS: ceFAZolin 2 GM in SODIUM CHLORIDE 0.9% 100 ML IVPB SCH (22:01)
[2016-08-09] MEDS: ONDANSETRON 4 MG/2 ML VIAL IVP PRN ×2 (03:15→10:40)
[2016-08-09] MEDS: HYDROmorphone 1 MG/ML 1 ML SYRINGE IVP PRN ×3 (03:15→10:46)
[2016-08-09] MEDS: SODIUM CHLORIDE 0.9% 1,000 ML IV SCH ×2 (03:26→06:13)
[2016-08-09] MEDS: ceFAZolin 2 GM in SODIUM CHLORIDE 0.9% 100 ML IVPB SCH (05:41)
[2016-08-09] MEDS: BUDESONIDE 1 MG/2 ML NEBU INHALATION SCH (08:05)
[2016-08-09 08:40] VITALS: BP 142/77; PULSE 82; TEMP 98.3
[2016-08-09] MEDS: CYCLOBENZAPRINE 10 MG TAB PO SCH (09:05)
[2016-08-09] MEDS: CHOLECALCIFEROL 1,000 UNIT TAB PO SCH (09:05)
[2016-08-09] MEDS: CYANOCOBALAMIN 500 MCG TAB PO SCH (09:05)
[2016-08-09] MEDS: CALCIUM CARB-VIT D 500MG-200UN 1 EACH TAB PO SCH (09:06)
[2016-08-09] MEDS: LISINOPRIL 20 MG TAB PO SCH (09:06)
[2016-08-09] MEDS: ZINC SULFATE 220 MG CAP PO SCH (09:06)
[2016-08-09] MEDS: FERROUS SULFATE 325 MG TAB PO SCH (09:06)
[2016-08-09] MEDS: GABAPENTIN 400 MG CAP PO SCH (09:06)
[2016-08-09] MEDS: SERTRALINE 50 MG TAB PO SCH (09:07)
--- NOTE | 2016-08-09 10:11 | US ---
EXAMINATION TYPE: US venous doppler duplex LE LT DATE OF EXAM: 08/09/2016 9:54 AM COMPARISON: NONE CLINICAL HISTORY: rule out DVT. Gastric surgery yesterday, no h/o dvt, h/o factor 5 SIDE PERFORMED: Left TECHNIQUE: The lower extremity deep venous system is examined utilizing real time linear array sonog lorne with graded compression, doppler sonography and color-flow sonography. VESSELS IMAGED: External Iliac Vein (EIV) Common Femoral Vein Deep Femoral Vein Greater Saphenous Vein * Femoral Vein Popliteal Vein Small Saphenous Vein * Proximal Calf Veins (* superficial vessels) Left Leg: Appears negative for DVT IMPRESSION: 1. No ultrasound evidence left lower extremity deep venous thrombosis.
[2016-08-09] MEDS: THIAMINE 100 MG TAB PO SCH (12:21)
[2016-08-09] MEDS: MULTIVITAMINS, THERA 1 EACH TAB PO SCH (12:21)
--- NOTE | 2016-08-09 13:43 | P.DS ---
Providers Date of admission: 08/07/16 16:06 Expected date of discharge: 08/09/16 Attending physician: Latricia Dumont Primary care physician: [facility] Course: 46-year-old female who presents with a previous history of gastric bypass comes in to be evaluated for a 5 day history of having severe epigastric pain radiating to the left upper quadrant. Patient stated that she developed pain after eating a salad. Patient states she's been throwing up all the time. Patient has had previous multi diagnostic laparoscopic for abdominal pain which has resolved secondary to license of adhesions. Patient's been admitted secondary to severe dehydration as well as abdominal pain in a patient with a history of gastric bypass patient continued report having abdominal discomfort felt worse. Despite multiple diagnostic studies no specific foci could identify the cause of her pain. Continue to report having left upper quadrant pain. Given the patient's previous history previous interabdominal adhesions requiring lysis as well as gastric bypass which is at high risk the decision was to offer laparoscopically with lysis of adhesions patient elected to proceed and did undergo August 08 of microscopic lysis of adhesions per Dr. Dumont on August 06 the patient did undergo an EGD with balloon dilatation for dysphagia with epigastric abdominal pain patient did have an upper GI with small bowel follow-through there was no evidence of a bowel obstruction continued report feeling nauseated but did not actually have an active emesis was spitting up but not throwing up was no reported documented emesis. Patient states cannot tolerate any artificial sweeteners and that caused migraine. The patient complained of left calf pain. Dopplers to the left lower extremity show no evidence of a DVT Patient was felt to be hemodynamically stable and appropriate proceed with a discharge to home Impression discharge diagnosis Present on admission epigastric abdominal pain with dysphagia status post EGD with balloon dilatation done on the 06 of August present on admission poor oral intake with severe clinical dehydration Previous multiple diagnostic laparoscopic for abdominal pain which has resolved secondary to lysis of adhesions Morbid obesity BMI 41 Type 2 diabetes controlled History of gastric bypass Persistent intractable nausea vomiting with clinical dehydration Left calf pain with no evidence of a DVT per Doppler studies History of migraines with a sensitivity to sweeteners trigger for migraine The above dictated assessment and findings were discussed with Tim Impression and the plan of care have been dictated as directed. Jacquie Ivy nurse practitioner acting as a scribe for Tim Patient Condition at Discharge: Stable Plan - Discharge Summary New Discharge Prescriptions: New Ondansetron [Zofran] 4 mg PO Q8HR PRN #30 tab PRN Reason: Mild Nausea And/Or Anxiety Continue rOPINIRole HCL [Requip] 2 mg PO TID Thiamine [Vitamin B-1] 100 mg PO DAILY Gabapentin 800 mg PO QID Cyanocobalamin [Vitamin B-12] 1,000 mcg PO DAILY Budesonide [Pulmicort Flexhaler] 2 puff INHALATION RT-BID Albuterol Inhaler [Ventolin Hfa Inhaler] 2 puff INHALATION RT-Q6H PRN PRN Reason: Shortness Of Breath QUEtiapine [SEROquel] 50 mg PO HS Multivitamins, Thera [Multivitamin (formulary)] 1 tab PO DAILY Ferrous Sulfate [Feosol] 325 mg PO DAILY traMADol HCL [Ultram] 50 mg PO TID PRN PRN Reason: Pain Sertraline [Zoloft] 50 mg PO DAILY Lisinopril [Zestril] 20 mg PO DAILY Cyclobenzaprine [Flexeril] 10 mg PO BID Cholecalciferol [Vitamin D3] 5,000 unit PO DAILY Scopolamine 1.5MG/72Hr Patch [TransDerm Scop] 1 patch TRANSDERM Q72H PRN PRN Reason: Nausea And Vomiting Zinc 50 mg PO DAILY Calcium Carbonate [Calcium] 600 mg PO DAILY Discharge Medication List rOPINIRole HCL [Requip] 2 mg PO TID 09/21/14 [History] Gabapentin 800 mg PO QID 03/30/15 [History] Thiamine [Vitamin B-1] 100 mg PO DAILY 03/30/15 [History] Albuterol Inhaler [Ventolin Hfa Inhaler] 2 puff INHALATION RT-Q6H PRN 11/28/15 [ History] Budesonide [Pulmicort Flexhaler] 2 puff INHALATION RT-BID 11/28/15 [History] Cyanocobalamin [Vitamin B-12] 1,000 mcg PO DAILY 11/28/15 [History] Calcium Carbonate [Calcium] 600 mg PO DAILY 08/05/16 [History] Cholecalciferol [Vitamin D3] 5,000 unit PO DAILY 08/05/16 [History] Cyclobenzaprine [Flexeril] 10 mg PO BID 08/05/16 [History] Ferrous Sulfate [Feosol] 325 mg PO DAILY 08/05/16 [History] Lisinopril [Zestril] 20 mg PO DAILY 08/05/16 [History] Multivitamins, Thera [Multivitamin (formulary)] 1 tab PO DAILY 08/05/16 [History ] QUEtiapine [SEROquel] 50 mg PO HS 08/05/16 [History] Scopolamine 1.5MG/72Hr Patch [TransDerm Scop] 1 patch TRANSDERM Q72H PRN [History] Sertraline [Zoloft] 50 mg PO DAILY 08/05/16 [History] Zinc 50 mg PO DAILY 08/05/16 [History] traMADol HCL [Ultram] 50 mg PO TID PRN 08/05/16 [History] Ondansetron [Zofran] 4 mg PO Q8HR PRN #30 tab 08/09/16 [Rx] Follow up Appointment(s)/Referral(s): Lucía Pratt MD [Primary Care Provider] - 1-2 days Latricia Dumont MD [STAFF PHYSICIAN] - 1 Week Activity/Diet/Wound Care/Special Instructions: Follow-up with Dr. Nery Pearson Discharge Disposition: HOME SELF-CARE
--- NOTE | 2016-08-20 21:48 | P.OP ---
Date of Procedure: 08/06/16 Preoperative Diagnosis: Postoperative Diagnosis: Procedure(s) Performed: Implants: Indications for Procedure: Operative Findings: Description of Procedure: PREOPERATIVE DIAGNOSIS: Dysphagia. s/p Barb-en-y gastric bypass. Nausea with vomiting. Epigastric abdominal pain. POSTOPERATIVE DIAGNOSIS: Dysphagia. s/p Barb-en-y gastric bypass. Nausea with vomiting. Epigastric abdominal pain. Gastrojejunal stricture with chronic ulcer without perforation OPERATION: Esophagogastrojejunoscopy with balloon dilatation to 20 mm. SURGEON: Latricia Dumont MD ANESTHESIA: MAC. INDICATIONS: The patient is a 46-year-old female who presents with a history of dysphagia, gastric bypass including new-onset nausea and vomiting. Benefits and risks of the procedure were described. Informed consent was obtained. DESCRIPTION: The patient was brought into the endoscopy suite and laid in the left lateral decubitus position. After a timeout was confirmed, the procedure was initiated. An Olympus gastroscope was passed along the posterior oropharynx down to the distal esophagus where the squamocolumnar junction was unremarkable. The gastric pouch was entered. A gastrojejunal stricture of 16 mm was found as the adult gastroscope was 9.5 mm in size. A WeissBeerger balloon dilator was placed through the scope. Final insufflation up to 20 mm was performed with a total of 2 minutes. The scope was advanced up to 100 cm from the incisors into the Barb limb. The mucosa of the gastrojejunal anastomosis was intact. No chronic gastrojejunal marginal ulcer was encountered. No full-thickness injury was encountered. The GI tract was desufflated. The patient tolerated the procedure well. FINDINGS: Squamocolumnar junction unremarkable at 37 cm. Stricture of approximately 16 mm encountered. No chronic gastrojejunal ulceration encountered. Successful balloon dilatation to 20 mm. Diaphragmatic hiatus at 40 cm. Gastric pouch 3 cm. RECOMMENDATIONS: Upper endoscopy is needed.
--- NOTE | 2016-08-20 22:02 | P.OP ---
Date of Procedure: 08/08/16 Preoperative Diagnosis: Postoperative Diagnosis: Procedure(s) Performed: Implants: Indications for Procedure: Operative Findings: Description of Procedure: SURGEON: SAM NORTH MD DIVERSIFIED CROPS SUPERVISOR: NONE. PREOPERATIVE DIAGNOSES: 1. History of recurrent small bowel obstruction. 2. History of peritoneal adhesions. 3. Prior history of Barb-En-Y gastric bypass. 4. Chronic abdominal pain. 5. Status post massive weight loss. 6. History of morbid obesity. 7. Intractable nausea and vomiting. 8. Constipation. POSTOPERATIVE DIAGNOSES: 1. History of recurrent small bowel obstruction. 2. History of peritoneal adhesions. 3. Prior history of Barb-En-Y gastric bypass. 4. Chronic abdominal pain. 5. Status post massive weight loss. 6. History of morbid obesity. 7. Intractable nausea and vomiting. 8. Colonic volvulus, sigmoid. 9. Constipation. OPERATION: 1. Diagnostic laparoscopy. ANESTHESIA: General with local anesthetis ESTIMATED BLOOD LOSS: 5 mL. SPECIMENS REMOVED: None. COMPLICATIONS: None. INDICATIONS: The patient is a 46-year-old female with past history of Barb-en-Y gastric bypass. Since then, however, she has had 2 going on 3 operative interventions for bowel obstruction. As in the last several months, she has noted progressive diarrhea including abdominal distention. She states that she has had recurrent bowel obstruction including abdominal pain. Surgical intervention with diagnostic laparoscopy and possible lysis adhesions as well as small bowel resection were described at length. Benefits and risks were reviewed. Informed consent was obtained. DESCRIPTION OF PROCEDURE: Patient was brought to the operating room and laid on split leg table. After general induction, the abdomen had been prepped and draped in standard sterile fashion. Prior to incision, a timeout protocol was confirmed with surgical team regarding the patient's name including procedures to be performed. A right upper quadrant transverse incision was made after anesthetizing the skin with 0.25% Marcaine with epinephrine. Laparoscopic trocar entry into the abdomen was performed without any injury to bowel, viscera or mesentery. Diagnostic laparoscopy demonstrated no recurrent peritoneal adhesions involving the epigastrium, lower midline incision including bilateral lower pelvis. Laparoscopic imaging were obtained. Next, two 5 mm trocars were placed along the right lateral abdominal wall under direct visualization. Small bowel was then inspected without evidence of small bowel dilatation. All mesentery defects including the Harvey's and jejunojejunostomy were completely scarred. No internal hernias were identified. Next, attention was brought to the small bowel, particularly of the base of the cecum to perform a retrograde analysis of the small bowel. Excellent peristalsis was identified without any evidence of bowel obstruction or bowel dilatation. No interrloop adhesions were found upon retrograde inspection of the small bowel. The rest of the transverse colon was found to be also unremarkable. Attention was brought to the liver where fatty liver disease was encountered. A moderately redundant sigmoid colon was identified with a volvulus which was untorsed. Hemostasis was checked. Final laparoscopic imaging demonstrated no additional adhesions to reflect her abdominal pain with exception of an air-filled sigmoid colon was detorsed volvulus. All instruments and pneumoperitoneum were removed. For postop analgesia 0.25% Marcaine and epinephrine was infiltrated to all wounds. The incisions were reapproximated using interrupted subcuticular 4-0 Monocryl. Dermabond was applied to the skin. At the end of the procedure, needle, sponge, and instrument counts had been verified correct by neurosurgical nurse. Laparoscopic imaging with final capture had been reviewed and also discussed with the patient's family. FINDINGS: 1. No peritoneal adhesions involving the greater omentum to the abdominal wall or interloop adhesions. 2. No evidence of acute small bowel dilatation or obstruction. 3. Base of the cecum was unremarkable. 4. No internal hernia identified along the mesentery. 5. All mesenteric defects including Harvey and jejunojejunostomy completely scarred. 6. Redundant sigmoid colon with intermittent volvulus detorsed and without any ischemic changes.
--- NOTE | 2016-08-27 16:37 | CDI ---
In responding to this query, please exercise your independent professional judgment. The [facility] Coding Staff and Clinical Documentation Specialists appreciate your assistance in clarifying documentation, maintaining compliance with coding guidelines, accurately documenting patients condition and capturing severity of illness. The fact that a question is asked does not imply that any particular answer is desired or expected. Communication forms are a method of clarifying documentation and are not made part of the Legal Health Record. Thank you in advance for your clarification. Last Revision, December 2014 Benny Maldonado [address] [place] [address] Documentation Clarification Form Date: 08/27/2016 4:23:00 PM From: Marybeth Del Valle [facility] & Shaila Marrero, Color Paste Mixing Supervisor & Shaila = [phone] Admit Date: 08/07/2016 4:06:00 PM Patient Name: Jeannie Moore Visit Number: [id number] Discharge Date: 08-09-16 EROS ValenzuelaC: Please confirm principal diagnosis for this admission. Operative Report from 08-08-16 states: POSTOPERATIVE DIAGNOSES: Colonic volvulus, sigmoid. DESCRIPTION OF PROCEDURE: A moderately redundant sigmoid colon was identified with a volvulus which was untorsed. Final laparoscopic imaging demonstrated no additional adhesions to reflect her abdominal pain with exception of an air-filled sigmoid colon was detorsed volvulus. FINDINGS: Redundant sigmoid colon with intermittent volvulus detorsed and without any ischemic changes Presenting symptoms: Abdominal pain, weight loss, dysphagia, HH, constipation, diarrhead, s/p bariatric surgery, n&v, dehydration, tootie, GERD, hx smoker, Leiden factor V. Patient history/risk factors --history SBO, chronic pain, fatty liver, adhesions , diabetes, Radiology findings: CT abdomen on 08-05-16 is normal. UGI on 08-07-16 is also normal. Treatment: EGD w/balloon dilatation done on 08-06-16 The patients principal diagnosis has not been clearly identified and requires clarification. In your professional opinion, can you please clarify which diagnosis, after study, accounted for the patients presenting symptoms and was the reason chiefly responsible for the admission? Please document in your progress notes and discharge summary in order to capture severity of illness and risk of mortality. Include clinical findings that support your diagnosis. FYI: Press F11 to launch patient chart. Place X here if this finding has no clinical significance, is not applicable or if you are not able to provide any additional documentation. Please see amended discharge summary 08/28/2016 POSTOPERATIVE DIAGNOSES: 1. History of recurrent small bowel obstruction. 2. History of peritoneal adhesions. 3. Prior history of Barb-En-Y gastric bypass. 4. Chronic abdominal pain. 5. Status post massive weight loss. 6. History of morbid obesity. 7. Intractable nausea and vomiting. 8. Colonic volvulus, sigmoid. 9. Constipation. MTDD
== END 2016-08-09 14:51 | disposition home or self-care (01) | DRG 345 ==
LOC: EC 08:42 → 3SUR 10:55 → OBSVTOIN 08-07 16:06
PROVIDERS: ADMIT Surgery Plastic and Reconstructive Surgery; ATTEND Surgery Plastic and Reconstructive Surgery
PROC: 0D7A8ZZ Dilation of Jejunum, Via Natural or Artificial Opening Endoscopic (ICD-10-PCS; 2016-08-06)
PROC: 0D768ZZ Dilation of Stomach, Via Natural or Artificial Opening Endoscopic (ICD-10-PCS; principal; 2016-08-06 09:10)
PROC: 0DSN4ZZ Reposition Sigmoid Colon, Percutaneous Endoscopic Approach (ICD-10-PCS; 2016-08-08)
DX: K56.2 Volvulus (principal); Z68.41 Body mass index [BMI] 40.0-44.9, adult; D68.51 Activated protein C resistance; E11.40 Type 2 diabetes mellitus with diabetic neuropathy, unspecified; E66.01 Morbid (severe) obesity due to excess calories; R13.10 Dysphagia, unspecified; E86.0 Dehydration; K76.0 Fatty (change of) liver, not elsewhere classified; I10 Essential (primary) hypertension; K66.0 Peritoneal adhesions (postprocedural) (postinfection); R11.2 Nausea with vomiting, unspecified; R10.13 Epigastric pain; M79.662 Pain in left lower leg; G89.29 Other chronic pain; R10.12 Left upper quadrant pain; R19.7 Diarrhea, unspecified; R63.4 Abnormal weight loss; K21.9 Gastro-esophageal reflux disease without esophagitis; G43.909 Migraine, unspecified, not intractable, without status migrainosus; K59.00 Constipation, unspecified; M79.7 Fibromyalgia; G47.33 Obstructive sleep apnea (adult) (pediatric); I34.1 Nonrheumatic mitral (valve) prolapse; M54.9 Dorsalgia, unspecified; F41.9 Anxiety disorder, unspecified; M25.60 Stiffness of unspecified joint, not elsewhere classified; H91.93 Unspecified hearing loss, bilateral; E78.5 Hyperlipidemia, unspecified; N85.8 Other specified noninflammatory disorders of uterus; K44.9 Diaphragmatic hernia without obstruction or gangrene; J44.9 Chronic obstructive pulmonary disease, unspecified; G25.81 Restless legs syndrome; F43.10 Post-traumatic stress disorder, unspecified; I25.10 Atherosclerotic heart disease of native coronary artery without angina pectoris; F31.9 Bipolar disorder, unspecified; F40.10 Social phobia, unspecified; M19.90 Unspecified osteoarthritis, unspecified site; Z79.899 Other long term (current) drug therapy; Z71.3 Dietary counseling and surveillance; Z87.19 Personal history of other diseases of the digestive system; Z98.84 Bariatric surgery status; Z83.3 Family history of diabetes mellitus; Z82.49 Family history of ischemic heart disease and other diseases of the circulatory system; Z87.891 Personal history of nicotine dependence; Z91.02 Food additives allergy status; Z88.5 Allergy status to narcotic agent; Z88.2 Allergy status to sulfonamides; Z91.048 Other nonmedicinal substance allergy status; Z98.890 Other specified postprocedural states; Z90.49 Acquired absence of other specified parts of digestive tract; Z83.2 Family history of diseases of the blood and blood-forming organs and certain disorders involving the immune mechanism; Z83.49 Family history of other endocrine, nutritional and metabolic diseases; Z79.891 Long term (current) use of opiate analgesic; Z79.51 Long term (current) use of inhaled steroids; Z86.39 Personal history of other endocrine, nutritional and metabolic disease
CPT/HCPCS: 36415; 43249; 74177; 74245; 80053; 81001; 81025; 82150; 83605; 83690; 83735; 84425; 85025; 94640; 96361; 96365; 96366; 96374; 96375; 96376; 99285

== ENCOUNTER → 2016-09-26 | Outpatient (CLI) | payer MEDICARE, OTHER ==
[2016-09-26 13:27] VITALS: BP 161/91; PULSE 68; RESP 16; TEMP 98.6; BMI 39.2
--- NOTE | 2016-10-26 19:59 | P.PN ---
Progress Note - Text DATE OF SERVICE: 09/26/2016 CHIEF COMPLAINT: Follow-up gastric bypass. HISTORY OF PRESENT ILLNESS: Jeannie Moore is a 46-year-old female who is status post Barb-en-Y gastric bypass in October 2012. Her highest weight for a 5-foot, 1-inch frame was 310 pounds. Body mass index was 58.6. Today she comes weighing 207 pounds. Her previous weight was 222 pounds. Body mass index is reduced to 39.2. Percent excess weight loss after 4 years is 57%. She has actually lost 14 pounds in the last 10 months. She comes in with problems with her abdominal skin. She has had long-standing troubles with panniculitis. Prior to her gastric bypass, she had severe obstructive sleep apnea including diabetes type 2. She has lost 103 pounds. Today she comes in for evaluation for a panniculectomy. She reports chronic lower back pain. PAST MEDICAL HISTORY: 1. Panniculitis. 2. Obstructive sleep apnea. 3. Asthma. 4. Osteoarthritis. 5. Depression. 6. Fibromyalgia. 7. Gastroesophageal reflux disease. 8. Diabetes type 2. 9. Hypertension. 10. Dyslipidemia. 11. Bilateral lower extremity edema. 12. Polycystic ovarian syndrome. 13. Restless leg syndrome. 14. Depression. 15. Cardiomyopathy. 16. Anxiety. 17. Super morbid obesity. 18. Chronic sinusitis. 19. Panniculitis. PAST SURGICAL HISTORY: 1. with complication of wound infection. 2. D&C. 3. Right breast biopsy. 4. Multiple myringotomy tubes. 5. Tonsillectomy. 6. Adenoidectomy. 7. Heart catheterization. 8. Laparoscopic cholecystectomy. 9. Upper endoscopy. 10. Multiple right knee arthroscopies. 11. Right knee surgery. 12. Gastric bypass, 2013. 13. 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 14. Multiple diagnostic laparoscopies with extensive lysis of adhesions, 2014. 15. Diagnostic laparoscopy with revision of gastrojejunostomy for intussusception, 2014. MEDICATIONS: 1. Gabapentin. 2. Vitamin B12. 3. Pulmicort. 4. Ventolin inhaler. 5. Zanaflex. 6. Requip. 7. Thiamine. 8. Nitroglycerin. 9. Scopolamine patch. ALLERGIES: 1. SULFA. 2. MORPHINE. SOCIAL HISTORY: No active tobacco use. She is engaged. FAMILY HISTORY: Pertinent for bladder, breast, colon cancer and lymphoma, prostate cancer, stomach cancer, morbid obesity as well as factor V Leiden disease. REVIEW OF SYSTEMS: CONSTITUTIONAL: Highest weight of 310 pounds for a 5-foot, 1-frame. Body mass was 58.6. She has lost 14 pounds in the last 10 months. Body mass index reduced to 39.2. Total BMI point reduction is 19.5. Total weight loss maintained at 103 pounds. Percent excess weight loss of 57%. ENDOCRINE: No reports of checking her blood sugar glucose for prior history of insulin-dependent diabetes. Prior hemoglobin A1c was at least 15. MUSCULOSKELETAL: Has chronic and diffuse joint pain, including chronic pain syndrome. Has chronic lower back pain. NEURO: History of chronic pain syndrome. No stroke or seizure disorder. GASTROINTESTINAL: No reports of blood in stools. She has intermittent nausea and vomiting. SKIN: Recurrent panniculitis, including ulcerations and tenderness from her pannus. She takes nystatin powder for control of her symptoms. CARDIOVASCULAR: No reports of chest pain or heart attack. RESPIRATORY: History of asthma, bronchitis including obstructive sleep apnea, which is also improved since her procedure. GENITOURINARY: History of irregular masses. PSYCH: History of depression, including anxiety and mental illness. HEMATOLOGIC: History of factor V Leiden carrier. PHYSICAL EXAM: VITAL SIGNS: 5 foot 1, 207 pounds. Body mass index 39.2. Vital Signs 09/26/16 13:18 Temperature 98.6 F Pulse Rate 68 Respiratory 16 Rate Blood Pressure 161/91 ABDOMEN: Actually soft protuberant. Weight of pannus over 10+ pounds. Has panniculitis. Nontender. Nondistended. GENERAL: Well-developed, pleasant female in no acute distress. HEENT: Extraocular movements are grossly intact. No sclerae icterus. MUSCULOSKELETAL: No clubbing, cyanosis, or edema. CHEST: Nonlabored respirations with equal bilateral excursions. CARDIOVASCULAR: Regular rate and rhythm. NEURO: No focal or lateralizing signs. Cranial nerves II-12 grossly intact. PSYCH: Appropriate affect. Alert and order person place and time. SKIN: Poor skin turgor with dry skin consistent with dehydration. LABS: Pending ASSESSMENT: 1. Panniculitis. 2. Chronic abdominal pain. 3. Barb-En-Y Gastric bypass. 4. Diet controlled diabetes type 2. 5. Hypertension with heart disease. 6. Hypercholesterolemia. 7. Vitamin D deficiency. 8. Chronic pain syndrome. 9. Morbid obesity from BMI reduced from 58.7 to 39.2. PLAN: 1. Recommend bariatric metabolic panel. 2. She has severe panniculitis. Despite treatment with over 3 years she continues to have symptoms. Recommend panniculectomy. 3. Abdominal binder was described for postoperative recovery. 4. Benefits and risks of bleeding, infection, need for further surgery, flap failure, cosmetic deformity, abdominal wall seromas, were described in detail. 5. DVT prophylaxis. 6. Antibiotic prophylaxis. 7. Inpatient hospitalization overnight. 8. Management of chronic pain syndrome per pain provider. 9. Postoperative recovery at minimum 4-6 weeks.
== END | disposition home or self-care (01) ==
LOC: BARWHC3 12:51
PROVIDERS: ATTEND Surgery Plastic and Reconstructive Surgery
DX: Z48.815 Encounter for surgical aftercare following surgery on the digestive system (principal); Z98.84 Bariatric surgery status; M79.3 Panniculitis, unspecified; Z87.19 Personal history of other diseases of the digestive system; E11.9 Type 2 diabetes mellitus without complications; I11.9 Hypertensive heart disease without heart failure; E78.00 Pure hypercholesterolemia, unspecified; E55.9 Vitamin D deficiency, unspecified; F41.9 Anxiety disorder, unspecified; F32.9 Major depressive disorder, single episode, unspecified; G89.4 Chronic pain syndrome; E66.01 Morbid (severe) obesity due to excess calories; Z68.39 Body mass index [BMI] 39.0-39.9, adult; Z88.2 Allergy status to sulfonamides; Z88.5 Allergy status to narcotic agent; Z79.899 Other long term (current) drug therapy
CPT/HCPCS: 99211

== ENCOUNTER → 2017-11-20 | Outpatient (CLI) | payer MEDICARE, OTHER ==
[2017-11-20 15:41] VITALS: BMI 44.3
--- NOTE | 2017-11-20 16:23 | P.PN ---
Subjective Progress Note Date: 11/20/17 HPI: She reports for 7 months of nausea and vomiting. She reports occassional abdominal pain. She has gained 20+ pounds in 2 years. She reports heartburn. She reports foul smelling stools. She reports heartburn. ABDOMEN: No peritonitis. PLAN: 1. Review of CT scan needed of the abdomen 2. Recommend bariatric panel 3. Recommend EGD 4. Recommend referral to pain specialist. Objective - Vital Signs Vital signs: Intake & Output 11/19/17 11/20/17 11/20/17 18:59 06:59 18:59 Weight 102.965 kg
[2017-11-20 16:40] VITALS: BP 162/82; PULSE 83; TEMP 98.9
[2017-11-20 17:08] LABS: HCT 34.9 % (34.0-46.0); HGB 10.9 gm/dL (11.4-16.0); MCHC 31.1 g/dL (31.0-37.0); MCV 80.2 fL (80.0-100.0); Mean Platelet Volume 7.2; Platelet Count 286 k/uL (150-450); RBC 4.36 m/uL (3.80-5.40); RDW 15.3 % (11.5-15.5); WBC 7.8 k/uL (3.8-10.6)
[2017-11-20 17:15] LABS: Partial Thromboplastin Time 22.2 sec (22.0-30.0); Prothrombin Time 9.8 sec (9.0-12.0)
[2017-11-20 17:22] LABS: ALT 25 U/L (9-52); AST 26 U/L (14-36); Albumin 4.4 g/dL (3.5-5.0); Alkaline Phosphatase 113 U/L (38-126); Anion Gap 8 mmol/L; Blood Urea Nitrogen 11 mg/dL (7-17); Calcium 9.5 mg/dL (8.4-10.2); Carbon Dioxide 28 mmol/L (22-30); Chloride 102 mmol/L (98-107); Cholesterol 277 mg/dL (<200); Glucose 117 mg/dL (74-99); HDL Cholesterol 71 mg/dL (40-60); LDL Cholesterol,Calculated 182 mg/dL (0-99); Phosphorus 3.7 mg/dL (2.5-4.5); Potassium 4.5 mmol/L (3.5-5.1); Sodium 138 mmol/L (137-145); Total Protein 7.6 g/dL (6.3-8.2); Triglycerides 122 mg/dL (<150)
[2017-11-21 02:14] LABS: Parathyroid Hormone Intact 48.3 pg/mL (14.0-72.0)
[2017-11-21 03:53] LABS: Iron Saturation 23.53 (12.00-45.00)
[2017-11-21 04:02] LABS: Vitamin D 25 Hydroxy 19.3 ng/mL (30.0-100.0)
[2017-11-21 04:13] LABS: Folate, Serum 20.6 ng/mL
[2017-11-21 04:39] LABS: Hemoglobin A1C 6.2 % (4.0-6.0)
[2017-11-21 12:04] LABS: Zinc, Serum 65 ug/dL (60-130)
[2017-11-21 13:18] LABS: Vitamin A 49 ug/dL (38-106)
[2017-11-22 05:43] LABS: Vitamin B1 45 ug/L (38-122)
== END | disposition home or self-care (01) ==
LOC: BARWHC3 14:24
PROVIDERS: ATTEND Surgery Plastic and Reconstructive Surgery
DX: R11.2 Nausea with vomiting, unspecified (principal); R12 Heartburn; E66.01 Morbid (severe) obesity due to excess calories; E21.1 Secondary hyperparathyroidism, not elsewhere classified; E89.1 Postprocedural hypoinsulinemia; D50.9 Iron deficiency anemia, unspecified; K90.9 Intestinal malabsorption, unspecified; E55.9 Vitamin D deficiency, unspecified; K76.9 Liver disease, unspecified; N19 Unspecified kidney failure; K50.90 Crohn's disease, unspecified, without complications; Z68.41 Body mass index [BMI] 40.0-44.9, adult
CPT/HCPCS: 84255; 84134; 84425; 80061; 80053; 82607; 82728; 82525; 82746; 83540; 83550; 83735; 84100; 84443; 84590; 84630; 85027; 85610; 85730; 82306; 83970; 83036; 97803; 36415; G0463; 99211

== ENCOUNTER 2017-12-30 08:57 | Day surgery (SDC) | payer MEDICARE, OTHER ==
[2017-12-25 10:27] VITALS: BMI 39.4
--- NOTE | 2017-12-29 21:52 | P.GSHP ---
History of Present Illness H&P Date: 12/30/17 CHIEF COMPLAINT: GERD HISTORY OF PRESENT ILLNESS: The patient is a 47-year-old female who presents reports gastroesophageal reflux disease. Upper endoscopy was offered for further evaluation and management. PAST MEDICAL HISTORY: Please see list. PAST SURGICAL HISTORY: Please see list. MEDICATIONS: Please see list. ALLERGIES: Please see list. SOCIAL HISTORY: No illicit drug use FAMILY HISTORY: No reports of Crohn disease or ulcerative colitis. REVIEW OF ORGAN SYSTEMS: CONSTITUTIONAL: No reports of fevers or chills. GI: Denies any blood in stools or constipation. PHYSICAL EXAM: VITAL SIGNS: Stable GENERAL: Well-developed and pleasant in no acute distress. HEENT: No scleral icterus. Extraocular movements grossly intact. Moist buccal mucosa. NECK: Supple without lymphadenopathy. CHEST: Unlabored respirations. Equal bilateral excursions. CARDIOVASCULAR: Regular rate and rhythm. Distal 2+ pulses. ABDOMEN: Soft, nondistended. MUSCULOSKELETAL: No clubbing, cyanosis, or edema. ASSESSMENT: 1. Gastroesophageal reflux disease PLAN: 1. Recommend proceeding with an upper endoscopy Past Medical History Past Medical History: Asthma, Blood Disorder, Chest Pain / Angina, COPD, Diabetes Mellitus, Fibromyalgia, GERD/Reflux, Hearing Disorder / Deafness, Hyperlipidemia, Hypertension, Liver Disease, Mitral Valve Prolapse (MVP), Musculoskeletal Disorder, Osteoarthritis (OA), Respiratory Disorder, Sleep Apnea /CPAP/BIPAP Additional Past Medical History / Comment(s): MIGRAINES, DEGENERATIVE DISC DISEASE, FATTY LIVER, LEIDEN FACTOR 5, OCCASIONAL SWELLING IN LOWER EXT.NEUROPATHY, RLS, diabetes is in remission since surgery History of Any Multi-Drug Resistant Organisms: None Reported Past Surgical History: Adenoidectomy, Appendectomy, Bariatric Surgery, Breast Surgery, Section, Cholecystectomy, Ear Surgery, Heart Catheterization, Hernia Repair, Orthopedic Surgery, Tonsillectomy Additional Past Surgical History / Comment(s): ARTHROSCOPY RT KNEE X3, RT BREAST BX-NEG, (13) MYRINGOTOMYS. laparoscopic danielle-en-y with lysis of adhesions 2013; Surgical wound debridement x3 ; SX TO REMOVED SCAR TISSUE FROM PREVIOUS ABD SX;EGD ; LAP EXAM- APPY SMALL BOWEL OBSTRUCTION LYSIS OFF ADHESIONS , 3 hernia repairs, 3 bowel resection, 07/2016 colon resection Past Anesthesia/Blood Transfusion Reactions: No Reported Reaction Additional Past Anesthesia/Blood Transfusion Reaction / Comment(s): SEVERE HEADACHE AFTER LAST SCOPE Smoking Status: Former smoker - Past Family History Mother Family Medical History: Deep Vein Thrombosis (DVT), Hypertension, Pulmonary Embolus, Thyroid Disorder Additional Family Medical History / Comment(s): FACTOR 5 LEIDEN, MVP Father Family Medical History: Diabetes Mellitus, Hypertension, Myocardial Infarction ( [place]) Additional Family Medical History / Comment(s): AGE 59 [place] Medications and Allergies Home Medications Medication Instructions Recorded Confirmed Type rOPINIRole HCL [Requip] 2 mg PO TID 09/21/14 12/25/17 History Gabapentin 800 mg PO QID 03/30/15 12/25/17 History Thiamine [Vitamin B-1] 100 mg PO DAILY 03/30/15 12/25/17 History Albuterol Inhaler [Ventolin Hfa 2 puff INHALATION RT-Q6H PRN 11/28/15 12/25/17 History Inhaler] Budesonide [Pulmicort Flexhaler] 2 puff INHALATION RT-BID 11/28/15 12/25/17 History Cyanocobalamin [Vitamin B-12] 1,000 mcg PO DAILY 11/28/15 12/25/17 History Calcium Carbonate [Calcium] 600 mg PO DAILY 08/05/16 12/25/17 History Cholecalciferol [Vitamin D3] 5,000 unit PO DAILY 08/05/16 12/25/17 History Cyclobenzaprine [Flexeril] 10 mg PO BID 08/05/16 12/25/17 History Ferrous Sulfate [Feosol] 325 mg PO DAILY 08/05/16 12/25/17 History Lisinopril [Zestril] 20 mg PO DAILY 08/05/16 12/25/17 History Multivitamins, Thera [Multivitamin 1 tab PO DAILY 08/05/16 12/25/17 History (formulary)] Zinc 50 mg PO DAILY 08/05/16 12/25/17 History traMADol HCL [Ultram] 50 mg PO TID PRN 08/05/16 12/25/17 History Allergies Allergy/AdvReac Type Severity Reaction Status Date / Time Sulfa (Sulfonamide Allergy Severe Anaphylaxis Verified 12/25/17 10:18 Antibiotics) morphine Allergy Itching Verified 12/25/17 10:18 adhesive AdvReac Itching Verified 12/25/17 10:18 artificial sweetners Allergy Nausea Uncoded 12/25/17 10:18
[~2017-12-30 08:57] MED LIST: LACTATED RINGERS 1,000 ML IV SCH; LIDOCAINE 1% 20 ML VIAL (10MG/ML) FOR IV START INTRADERMA PRN; MIDAZOLAM 2 MG/2 ML VIAL IV PRN
[2017-12-30 09:23] VITALS: TEMP 98
[2017-12-30 09:28] LABS: Glucose,Whole Blood 124 mg/dL (75-99)
[2017-12-30] MEDS ORDERED: LIDOCAINE 1% INJ 10MG/ML (20 ML MDV) ONE (09:31)
[2017-12-30] MEDS ORDERED: PROPOFOL 10 MG/ML 20 ML VIAL IV ONE (09:31)
[2017-12-30 09:51] VITALS: RESP 18
--- NOTE | 2017-12-30 09:54 | P.PCN ---
Date of Procedure: 12/30/17 Description of Procedure: PREOPERATIVE DIAGNOSIS: Dysphagia. Morbid obesity. Epigastric abdominal pain. POSTOPERATIVE DIAGNOSIS: Dysphagia. Morbid obesity. Epigastric abdominal pain. Gastritis along gastric pouch OPERATION: Esophagogastrojejunoscopy with balloon dilatation from 15 to 20 mm. Esophagogastrojejunoscopy with cold biopsy forcep along stomach SURGEON: Latricia Dumont MD ANESTHESIA: MAC. INDICATIONS: The patient is a 47-year-old female who presents with a history of dysphagia including worsening epigastric abdominal pain. Benefits and risks of the procedure were described. Informed consent was obtained. DESCRIPTION: The patient was brought into the endoscopy suite and laid in the left lateral decubitus position. After a timeout was confirmed, the procedure was initiated. An Olympus gastroscope was passed along the posterior oropharynx down to the distal esophagus where the squamocolumnar junction was unremarkable. The gastric pouch was entered. 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 A [employer] balloon dilator was placed through the scope. Insufflation up to 20 mm was performed with a total of 2 minutes. The scope was advanced up to 60 cm from the incisors into the Barb limb. The mucosa of the gastrojejunal anastomosis was intact. No full-thickness injury was encountered. Biopsies were obtained of the gastric pouch secondary to gastritis. The squamocolumnar junction was confirmed at 40 cm, the gastrojejunal anastomosis was found at 43 cm confirming a 4 cm gastric pouch. The GI tract was desufflated. The patient tolerated the procedure well. FINDINGS: Squamocolumnar junction unremarkable at 40 cm. Stricture of approximately 15 mm encountered. Successful balloon dilatation to 20 mm Gastritis along gastric pouch RECOMMENDATIONS: Upper endoscopy as needed. Plan - Discharge Summary New Discharge Prescriptions: No Action rOPINIRole HCL [Requip] 2 mg PO TID Thiamine [Vitamin B-1] 100 mg PO DAILY Gabapentin 800 mg PO QID Cyanocobalamin [Vitamin B-12] 1,000 mcg PO DAILY Budesonide [Pulmicort Flexhaler] 2 puff INHALATION RT-BID Albuterol Inhaler [Ventolin Hfa Inhaler] 2 puff INHALATION RT-Q6H PRN PRN Reason: Shortness Of Breath Multivitamins, Thera [Multivitamin (formulary)] 1 tab PO DAILY Ferrous Sulfate [Feosol] 325 mg PO DAILY Lisinopril [Zestril] 20 mg PO DAILY Cyclobenzaprine [Flexeril] 10 mg PO BID Cholecalciferol [Vitamin D3] 5,000 unit PO DAILY Zinc 50 mg PO DAILY Calcium Carbonate [Calcium] 600 mg PO DAILY Discharge Medication List rOPINIRole HCL [Requip] 2 mg PO TID 09/21/14 [History] Gabapentin 800 mg PO QID 03/30/15 [History] Thiamine [Vitamin B-1] 100 mg PO DAILY 03/30/15 [History] Albuterol Inhaler [Ventolin Hfa Inhaler] 2 puff INHALATION RT-Q6H PRN 11/28/15 [ History] Budesonide [Pulmicort Flexhaler] 2 puff INHALATION RT-BID 11/28/15 [History] Cyanocobalamin [Vitamin B-12] 1,000 mcg PO DAILY 11/28/15 [History] Calcium Carbonate [Calcium] 600 mg PO DAILY 08/05/16 [History] Cholecalciferol [Vitamin D3] 5,000 unit PO DAILY 08/05/16 [History] Cyclobenzaprine [Flexeril] 10 mg PO BID 08/05/16 [History] Ferrous Sulfate [Feosol] 325 mg PO DAILY 08/05/16 [History] Lisinopril [Zestril] 20 mg PO DAILY 08/05/16 [History] Multivitamins, Thera [Multivitamin (formulary)] 1 tab PO DAILY 08/05/16 [History ] Zinc 50 mg PO DAILY 08/05/16 [History]
[2017-12-30 09:56] LABS: Glucose,Whole Blood 122 mg/dL (75-99)
[2017-12-30 10:19] VITALS: BP 148/78; PULSE 78
== END 2017-12-30 10:21 | disposition home or self-care (01) ==
LOC: ORWHC2ENDO 08:57
PROVIDERS: ATTEND Surgery Plastic and Reconstructive Surgery
DX: K56.699 Other intestinal obstruction unspecified as to partial versus complete obstruction (principal); K29.50 Unspecified chronic gastritis without bleeding; E66.01 Morbid (severe) obesity due to excess calories; Z68.39 Body mass index [BMI] 39.0-39.9, adult; K21.9 Gastro-esophageal reflux disease without esophagitis; J44.9 Chronic obstructive pulmonary disease, unspecified; M79.7 Fibromyalgia; E78.5 Hyperlipidemia, unspecified; I10 Essential (primary) hypertension; K76.9 Liver disease, unspecified; I34.1 Nonrheumatic mitral (valve) prolapse; M19.90 Unspecified osteoarthritis, unspecified site; G47.33 Obstructive sleep apnea (adult) (pediatric); Z99.89 Dependence on other enabling machines and devices; G25.81 Restless legs syndrome; D68.2 Hereditary deficiency of other clotting factors; K76.0 Fatty (change of) liver, not elsewhere classified; Z98.84 Bariatric surgery status; Z90.49 Acquired absence of other specified parts of digestive tract; Z79.51 Long term (current) use of inhaled steroids; Z79.899 Other long term (current) drug therapy; Z88.5 Allergy status to narcotic agent; Z88.2 Allergy status to sulfonamides; Z91.018 Allergy to other foods; Z91.09 Other allergy status, other than to drugs and biological substances
CPT/HCPCS: 81025; 88305; 43239; 43245; J2001; J2704; C1726; 43249

== ENCOUNTER 2018-01-22 14:00 | Observation (INO) | payer MEDICARE, OTHER ==
[2018-01-22] MEDS ORDERED: HYDROmorphone 1 MG/ML 1 ML SYRINGE IVP STA ×2 (14:21→16:37)
[2018-01-22] MEDS ORDERED: METOCLOPRAMIDE 5 MG/ML 2 ML VIAL IVP STA (14:21)
[2018-01-22] MEDS ORDERED: SODIUM CHLORIDE 0.9% 1,000 ML IV STA (14:21)
[2018-01-22] MEDS ORDERED: IOPAMIDOL-300 CONTRAST 30 ML VIAL (ORAL USE) PO PRN (14:25)
--- NOTE | 2018-01-22 14:42 | ED ---
General Adult HPI <Don Lake - Last Filed: 01/22/18 17:13> - General Source: patient, RN notes reviewed, Caregiver Mode of arrival: ambulatory Limitations: no limitations <Hakeem Hirsch - Last Filed: 01/22/18 17:31> - General Chief complaint: Abdominal Pain Stated complaint: Abd Pain Time Seen by Provider: 01/22/18 14:05 - History of Present Illness Initial comments: Patient 47-year-old female presenting to the emergency room today with a chief complaint of increased abdominal pain that started yesterday afternoon. Patient states she went to bend down and she felt something on the left side of the abdomen and underneath the old incision site. She states it's been a sharp pain since. She has had episodes of nausea vomiting. Did have a follow-up with her general surgeon today was advised coming here to the emergency room. Patient states she had a Danielle-en-Y surgery 4 years ago and has had multiple bowel resections in the past. Patient states pain left side of the abdomen sharp radiating down both to the left and right lower sides. Patient admits to feeling nauseated. Patient denies any recent fever, chills, shortness of breath , chest pain, back pain, numbness or tingling, dysuria or hematuria, constipation or diarrhea, headaches or visual changes, or any other complaints. (Hakeem Hirsch) - Related Data Home Medications Medication Instructions Recorded Confirmed Gabapentin 800 mg PO QID 03/30/15 01/22/18 Albuterol Inhaler [Ventolin Hfa 2 puff INHALATION RT-Q6H PRN 11/28/15 01/22/18 Inhaler] Cyclobenzaprine [Flexeril] 10 mg PO BID 08/05/16 01/22/18 Benzonatate [Tessalon Perles] 100 mg PO TID 01/22/18 01/22/18 Budesonide/Formoterol Fumarate 2 puff INHALATION RT-BID 01/22/18 01/22/18 [Symbicort 80-4.5 Mcg Inhaler] Cholestyramine (with Sugar) 4 gm PO BID 01/22/18 01/22/18 [Questran Packet] Ferrous Sulfate [Feosol] 325 mg PO TID 01/22/18 01/22/18 Furosemide [Lasix] 20 mg PO DAILY 01/22/18 01/22/18 Lisinopril [Zestril] 10 mg PO DAILY 01/22/18 01/22/18 Meloxicam [Mobic] 15 mg PO DAILY 01/22/18 01/22/18 Metoclopramide HCl [Reglan] 5 mg PO DAILY 01/22/18 01/22/18 Metoprolol Succinate [Toprol XL] 50 mg PO DAILY 01/22/18 01/22/18 Nitroglycerin Sl Tabs [Nitrostat] 0.4 mg PO DIRECTED 01/22/18 01/22/18 Ranitidine HCl [Zantac] 150 mg PO BID 01/22/18 01/22/18 SUMAtriptan SUCCINATE [Imitrex] 50 mg PO ONCE PRN 01/22/18 01/22/18 rOPINIRole HCL 3 mg PO HS 01/22/18 01/22/18 Allergies Allergy/AdvReac Type Severity Reaction Status Date / Time Sulfa (Sulfonamide Allergy Severe Anaphylaxis Verified 01/22/18 14:35 Antibiotics) amoxicillin [From Augmentin] Allergy Rash/Hives Verified 01/22/18 14:35 clavulanic acid Allergy Rash/Hives Verified 01/22/18 14:35 [From Augmentin] morphine Allergy Itching Verified 01/22/18 14:35 Penicillins Allergy Rash/Hives Verified 01/22/18 14:35 adhesive AdvReac Itching Verified 01/22/18 14:35 artificial sweetners Allergy Nausea Uncoded 12/30/17 09:17 Review of Systems ROS Other: All systems not noted in ROS Statement are negative. <Don Lake - Last Filed: 01/22/18 17:13> ROS Other: All systems not noted in ROS Statement are negative. <Hakeem Hirsch - Last Filed: 01/22/18 17:31> ROS Statement: Those systems with pertinent positive or pertinent negative responses have been documented in the HPI. Past Medical History Past Medical History: Asthma, Blood Disorder, Chest Pain / Angina, COPD, Diabetes Mellitus, Fibromyalgia, GERD/Reflux, Hearing Disorder / Deafness, Hyperlipidemia, Hypertension, Liver Disease, Mitral Valve Prolapse (MVP), Musculoskeletal Disorder, Osteoarthritis (OA), Respiratory Disorder, Sleep Apnea /CPAP/BIPAP Additional Past Medical History / Comment(s): MIGRAINES, DEGENERATIVE DISC DISEASE, FATTY LIVER, LEIDEN FACTOR 5, OCCASIONAL SWELLING IN LOWER EXT.NEUROPATHY, RLS, diabetes is in remission since surgery History of Any Multi-Drug Resistant Organisms: None Reported Past Surgical History: Adenoidectomy, Appendectomy, Bariatric Surgery, Breast Surgery, Section, Cholecystectomy, Ear Surgery, Heart Catheterization, Hernia Repair, Orthopedic Surgery, Tonsillectomy Additional Past Surgical History / Comment(s): ARTHROSCOPY RT KNEE X3, RT BREAST BX-NEG, (13) MYRINGOTOMYS. laparoscopic danielle-en-y with lysis of adhesions 2013; Surgical wound debridement x3 ; SX TO REMOVED SCAR TISSUE FROM PREVIOUS ABD SX;EGD ; LAP EXAM- APPY SMALL BOWEL OBSTRUCTION LYSIS OFF ADHESIONS , 3 hernia repairs, 3 bowel resection, 07/2016 colon resection Past Anesthesia/Blood Transfusion Reactions: No Reported Reaction Additional Past Anesthesia/Blood Transfusion Reaction / Comment(s): SEVERE HEADACHE AFTER LAST SCOPE Past Psychological History: Anxiety, Bipolar, Depression, PTSD Smoking Status: Former smoker - Past Family History Mother Family Medical History: Deep Vein Thrombosis (DVT), Hypertension, Pulmonary Embolus, Thyroid Disorder Additional Family Medical History / Comment(s): FACTOR 5 LEIDEN, MVP Father Family Medical History: Diabetes Mellitus, Hypertension, Myocardial Infarction ( [place]) Additional Family Medical History / Comment(s): AGE 59 [place] <Hakeem Hirsch - Last Filed: 01/22/18 17:31> General Exam <Don Lake - Last Filed: 01/22/18 17:13> Limitations: no limitations <Hakeem Hirsch - Last Filed: 01/22/18 17:31> - General Exam Comments Initial Comments: General: The patient is awake and alert, in no distress, and does not appear acutely ill. Eye: There is normal conjunctiva bilaterally. No signs of icterus. Ears, nose, mouth and throat: There are moist mucous membranes and no oral lesions. Neck: The neck is supple, there is no tenderness or JVD. Cardiovascular: There is a regular rate and rhythm. No murmur, rub or gallop is appreciated. Respiratory: Lungs are clear to auscultation, respirations are non-labored, breath sounds are equal. No wheezes, stridor, rales, or rhonchi. Gastrointestinal: Abdomen soft on palpation. Patient does have tenderness left upper quadrant, left lower quadrant, and right lower quadrant on exam. No guarding or CVA tenderness. Musculoskeletal: Normal ROM, no tenderness. Strength 5/5. Sensation intact. Pulses equal bilaterally 2+. Neurological: A&O x 3. CN II-XII intact, There are no obvious motor or sensory deficits. Coordination appears grossly intact. Speech is normal. Skin: Skin is warm and dry and no rashes or lesions are noted. Psychiatric: Cooperative, appropriate mood & affect, normal judgment. (Hakeem Hirsch) Course <Don Lake - Last Filed: 01/22/18 17:13> <Hakeem Hirsch - Last Filed: 01/22/18 17:31> Vital Signs 01/22/18 01/22/18 14:12 15:38 Temperature 98.3 F Pulse Rate 76 Respiratory 18 Rate Blood Pressure 183/88 166/85 O2 Sat by Pulse 97 Oximetry - Reevaluation(s) Reevaluation #1: 01/22/18 17:13 Patient was evaluated by myself, Dr. Lake. Patient resting comfortably in bed. Patient does have mild tenderness left upper abdomen. Lab results and CT report reviewed. Case was discussed in detail with Dr. Gabriel who will admit her patient for observation. (Don Lake) Medical Decision Making - Lab Data Result diagrams: 01/22/18 14:21 01/22/18 14:21 <Don Lake - Last Filed: 01/22/18 17:13> - Lab Data Result diagrams: 01/22/18 14:21 01/22/18 14:21 <Hakeem Hirsch - Last Filed: 01/22/18 17:31> - Lab Data Lab Results 01/22/18 01/22/18 01/22/18 Range/Units 14:21 14:21 14:21 WBC 7.9 (3.8-10.6) k/uL RBC 4.12 (3.80-5.40) m/uL Hgb 10.7 L (11.4-16.0) gm/dL Hct 33.2 L (34.0-46.0) % MCV 80.5 (80.0-100.0) fL MCH 26.0 (25.0-35.0) pg MCHC 32.3 (31.0-37.0) g/dL RDW 14.3 (11.5-15.5) % Plt Count 339 (150-450) k/uL Neutrophils % 67 % Lymphocytes % 24 % Monocytes % 4 % Eosinophils % 2 % Basophils % 1 % Neutrophils # 5.3 (1.3-7.7) k/uL Lymphocytes # 1.9 (1.0-4.8) k/uL Monocytes # 0.3 (0-1.0) k/uL Eosinophils # 0.2 (0-0.7) k/uL Basophils # 0.0 (0-0.2) k/uL PT (9.0-12.0) sec INR (<1.2) APTT (22.0-30.0) sec Sodium 136 L (137-145) mmol/L Potassium 4.2 (3.5-5.1) mmol/L Chloride 102 (98-107) mmol/L Carbon Dioxide 27 (22-30) mmol/L Anion Gap 7 mmol/L BUN 12 (7-17) mg/dL Creatinine 0.48 L (0.52-1.04) mg/dL Est GFR (CKD-EPI)AfAm >90 (>60 ml/min/1.73 sqM) Est GFR (CKD-EPI)NonAf >90 (>60 ml/min/1.73 sqM) Glucose 135 H (74-99) mg/dL Plasma Lactic Acid Esteban 1.0 (0.7-2.0) mmol/L Calcium 9.1 (8.4-10.2) mg/dL Total Bilirubin 0.9 (0.2-1.3) mg/dL AST 24 (14-36) U/L ALT 25 (9-52) U/L Alkaline Phosphatase 126 (38-126) U/L Total Protein 7.2 (6.3-8.2) g/dL Albumin 4.0 (3.5-5.0) g/dL Amylase 50 (30-110) U/L Lipase 44 (23-300) U/L Urine Color Urine Appearance (Clear) Urine pH (5.0-8.0) Ur Specific [place] (1.001-1.035) Urine Protein (Negative) Urine Glucose (UA) (Negative) Urine Ketones (Negative) Urine Blood (Negative) Urine Nitrite (Negative) Urine Bilirubin (Negative) Urine Urobilinogen (<2.0) mg/dL Ur Leukocyte Esterase (Negative) 01/22/18 01/22/18 Range/Units 14:21 14:56 WBC (3.8-10.6) k/uL RBC (3.80-5.40) m/uL Hgb (11.4-16.0) gm/dL Hct (34.0-46.0) % MCV (80.0-100.0) fL MCH (25.0-35.0) pg MCHC (31.0-37.0) g/dL RDW (11.5-15.5) % Plt Count (150-450) k/uL Neutrophils % % Lymphocytes % % Monocytes % % Eosinophils % % Basophils % % Neutrophils # (1.3-7.7) k/uL Lymphocytes # (1.0-4.8) k/uL Monocytes # (0-1.0) k/uL Eosinophils # (0-0.7) k/uL Basophils # (0-0.2) k/uL PT 9.5 (9.0-12.0) sec INR 0.9 (<1.2) APTT 21.0 L (22.0-30.0) sec Sodium (137-145) mmol/L Potassium (3.5-5.1) mmol/L Chloride (98-107) mmol/L Carbon Dioxide (22-30) mmol/L Anion Gap mmol/L BUN (7-17) mg/dL Creatinine (0.52-1.04) mg/dL Est GFR (CKD-EPI)AfAm (>60 ml/min/1.73 sqM) Est GFR (CKD-EPI)NonAf (>60 ml/min/1.73 sqM) Glucose (74-99) mg/dL Plasma Lactic Acid Esteban (0.7-2.0) mmol/L Calcium (8.4-10.2) mg/dL Total Bilirubin (0.2-1.3) mg/dL AST (14-36) U/L ALT (9-52) U/L Alkaline Phosphatase (38-126) U/L Total Protein (6.3-8.2) g/dL Albumin (3.5-5.0) g/dL Amylase (30-110) U/L Lipase (23-300) U/L Urine Color Yellow Urine Appearance Clear (Clear) Urine pH 6.5 (5.0-8.0) Ur Specific [place] 1.015 (1.001-1.035) Urine Protein Trace H (Negative) Urine Glucose (UA) 2+ H (Negative) Urine Ketones Negative (Negative) Urine Blood Negative (Negative) Urine Nitrite Negative (Negative) Urine Bilirubin Negative (Negative) Urine Urobilinogen 4.0 (<2.0) mg/dL Ur Leukocyte Esterase Negative (Negative) Disposition <Don Lake - Last Filed: 01/22/18 17:13> Is patient prescribed a controlled substance at d/c from ED?: No Time of Disposition: 17:31 <Hakeem Hirsch - Last Filed: 01/22/18 17:31> Clinical Impression: Abdominal pain Disposition: HOME SELF-CARE Condition: Good Instructions: Abdominal Pain (ED) Referrals: Yarely Boothe MD [Primary Care Provider] - 1-2 days
[2018-01-22 15:13] LABS: Basophils % (A) 1 %; Eosinophils # (A) 0.2 k/uL (0-0.7); Eosinophils % (A) 2 %; HCT 33.2 % (34.0-46.0); HGB 10.7 gm/dL (11.4-16.0); Lymphocytes # (A) 1.9 k/uL (1.0-4.8); Lymphocytes % (A) 24 %; MCHC 32.3 g/dL (31.0-37.0); MCV 80.5 fL (80.0-100.0); Mean Platelet Volume 6.5; Monocytes # (A) 0.3 k/uL (0-1.0); Monocytes % (A) 4 %; Neutrophils # (A) 5.3 k/uL (1.3-7.7); Neutrophils % (A) 67 %; Platelet Count 339 k/uL (150-450); RBC 4.12 m/uL (3.80-5.40); RDW 14.3 % (11.5-15.5); WBC 7.9 k/uL (3.8-10.6)
[2018-01-22 15:24] LABS: ALT 25 U/L (9-52); AST 24 U/L (14-36); Alkaline Phosphatase 126 U/L (38-126); Amylase 50 U/L (30-110); Anion Gap 7 mmol/L; Blood Urea Nitrogen 12 mg/dL (7-17); Calcium 9.1 mg/dL (8.4-10.2); Carbon Dioxide 27 mmol/L (22-30); Chloride 102 mmol/L (98-107); Glucose 135 mg/dL (74-99); Lipase 44 U/L (23-300); Potassium 4.2 mmol/L (3.5-5.1); Sodium 136 mmol/L (137-145); Total Bilirubin 0.9 mg/dL (0.2-1.3); Total Protein 7.2 g/dL (6.3-8.2)
[2018-01-22 15:33] LABS: INR 0.9 (<1.2); Prothrombin Time 9.5 sec (9.0-12.0)
[2018-01-22 15:49] LABS: Appearance,Urine Clear (Clear); Bilirubin,Urine Negative (Negative); Blood,Urine Negative (Negative); Color,Urine Yellow; Glucose,Urine (UA) 2+ (Negative); Ketones,Urine Negative (Negative); Leukocyte Esterase,Urine Negative (Negative); Nitrite,Urine Negative (Negative); PH, Urine 6.5 (5.0-8.0); Protein,Urine Trace (Negative); Specific Gravity,Urine 1.015 (1.001-1.035)
--- NOTE | 2018-01-22 16:08 | CT ---
EXAMINATION TYPE: CT abdomen pelvis w con DATE OF EXAM: 01/22/2018 COMPARISON: 08/05/2016 HISTORY: 47-year-old female Generalized pain with nausea and vomiting TECHNIQUE: Contiguous axial scanning of the abdomen and pelvis following administration of 100 ml Iso veronica 300 IV contrast. Delayed images through the kidneys and coronal/sagittal reconstructions perform ed. CT DLP: 1622.1 mGycm Automated exposure control for dose reduction was used. FINDINGS: Heart upper limits of normal in size without pericardial effusion. Coronary vessel calcifications are present. Stable tiny 3 mm punctate nodule posterior left base. No pleural effusion. Post surgical changes of Barb-en-Y gastric bypass. Liver is enlarged measuring 20.2 cm there are no focal lesions seen. Portal venous system is patent. No biliary ductal dilatation. Cholecystectomy clips. Adrenal glands, spleen, and pancreas appear within normal limits. Tiny subcentimeter hypodense lesions within both kidneys too small fractured CT characterization, lik bryan cysts. Symmetric uptake and excretion of contrast from both kidneys. No dilated small bowel, free fluid, or free air. No mesenteric or retroperitoneal lymphadenopathy. Mi ld spurring. Redundant sigmoid colon. No pericolonic inflammatory change. While the appendix is not d iscretely visualized, there are no secondary findings of acute appendicitis in the right lower quadra nt. Uterus and left ovary are visualized. Right ovary not clearly delineated due to adjacent clustered pushpa wel loops. Pelvic platelets. No abnormal fluid collection in the pelvis or pelvic lymphadenopathy. Some scattered prominent fluid-filled small bowel loops in the lower abdomen and pelvis. Bones: Facet arthropathy lower lumbar spine. Some endplate spondylosis lower thoracic spine. No osseous destructive process. IMPRESSION: 1. SOME PROMINENT FLUID-FILLED SMALL BOWEL LOOPS IN LOWER ABDOMEN AND PELVIS MAY REFLECT ENTERITIS. 2. HEPATOMEGALY (20.2 CM). 3. OTHERWISE, NO ACUTE INFLAMMATORY PROCESS IDENTIFIED IN THE ABDOMEN OR PELVIS TO EXPLAIN THE PATIEN T'S SYMPTOMS.
[2018-01-22] MEDS ORDERED: ONDANSETRON 4 MG/2 ML VIAL IVP STA (16:38)
[2018-01-22] MEDS ORDERED: NALOXONE 0.4 MG/ML 1 ML VIAL IV PRN (17:31)
[2018-01-22] MEDS ORDERED: ALBUTEROL NEBULIZED 2.5 MG/3 ML INHALATION PRN (18:22)
[2018-01-22] MEDS: SYMBICORT 80-4.5 MCG INHALER INHALATION SCH (19:47)
[2018-01-22] MEDS: ONDANSETRON 4 MG/2 ML VIAL IVP PRN (21:44)
[2018-01-22] MEDS: HYDROmorphone 1 MG/ML 1 ML SYRINGE IVP PRN (21:45)
[2018-01-22] MEDS: CYCLOBENZAPRINE 10 MG TAB PO SCH (21:49)
[2018-01-22] MEDS: FAMOTIDINE 20 MG TAB PO SCH (21:49)
[2018-01-22] MEDS: GABAPENTIN 400 MG CAP PO SCH (21:49)
[2018-01-23] MEDS ORDERED: SODIUM CHLORIDE 0.9% 2,000 ML IV ONE (00:05)
--- NOTE | 2018-01-23 00:05 | P.GSHP ---
History of Present Illness H&P Date: 01/22/18 Patient is a 47-year-old female with chronic abdominal pain with history of gastric bypass. Multiple CT of the abdomen and pelvis including evaluation at the several institutions for abdominal pain has been unremarkable. Patient transferred from the bariatric center to the ER for hypertensive crisis systolic blod pressures over 200 over 110s including severe abdominal pain. CT of the abdomen and pelvis otherwise demonstrates enterocolitis. Patient reports moderate abdominal pain and hence admission. PLAN: 1. IV fluid hydration advised. 2. CT of the abdomen pelvis results exclude acute surgical abdomen 3. Medical management 4. No surgical intervention at this time Past Medical History Past Medical History: Asthma, Blood Disorder, Chest Pain / Angina, COPD, Diabetes Mellitus, Fibromyalgia, GERD/Reflux, Hearing Disorder / Deafness, Hyperlipidemia, Hypertension, Liver Disease, Mitral Valve Prolapse (MVP), Musculoskeletal Disorder, Osteoarthritis (OA), Pneumonia, Respiratory Disorder, Sleep Apnea/CPAP/BIPAP Additional Past Medical History / Comment(s): 01-22-18 pt wants flu vaccine while here. MIGRAINES, DEGENERATIVE DISC DISEASE, FATTY LIVER, LEIDEN FACTOR 5, OCCASIONAL SWELLING IN LOWER EXT.NEUROPATHY, RLS, diabetes is in remission since surgery, chronic back pain History of Any Multi-Drug Resistant Organisms: None Reported Past Surgical History: Adenoidectomy, Appendectomy, Bariatric Surgery, Breast Surgery, Section, Cholecystectomy, Ear Surgery, Heart Catheterization, Hernia Repair, Orthopedic Surgery, Tonsillectomy Additional Past Surgical History / Comment(s): ARTHROSCOPY RT KNEE X3, RT BREAST BX-NEG, (13) MYRINGOTOMYS. laparoscopic danielle-en-y with lysis of adhesions 2013; Surgical wound debridement x3 ; SX TO REMOVED SCAR TISSUE FROM PREVIOUS ABD SX;EGD ; LAP EXAM- APPY SMALL BOWEL OBSTRUCTION LYSIS OFF ADHESIONS , 3 hernia repairs, 3 bowel resection, 07/2016 colon resection Past Anesthesia/Blood Transfusion Reactions: No Reported Reaction Additional Past Anesthesia/Blood Transfusion Reaction / Comment(s): SEVERE HEADACHE AFTER LAST SCOPE, clausterphobia Smoking Status: Former smoker - Past Family History Mother Family Medical History: Deep Vein Thrombosis (DVT), Hypertension, Pulmonary Embolus, Thyroid Disorder Additional Family Medical History / Comment(s): FACTOR 5 LEIDEN, MVP Father Family Medical History: Diabetes Mellitus, Hypertension, Myocardial Infarction ( [place]) Additional Family Medical History / Comment(s): AGE 59 [place] Medications and Allergies Home Medications Medication Instructions Recorded Confirmed Type Gabapentin 800 mg PO QID 03/30/15 01/22/18 History Albuterol Inhaler [Ventolin Hfa 2 puff INHALATION RT-Q6H PRN 11/28/15 01/22/18 History Inhaler] Cyclobenzaprine [Flexeril] 10 mg PO BID 08/05/16 01/22/18 History Benzonatate [Tessalon Perles] 100 mg PO TID 01/22/18 01/22/18 History Budesonide/Formoterol Fumarate 2 puff INHALATION RT-BID 01/22/18 01/22/18 History [Symbicort 80-4.5 Mcg Inhaler] Cholestyramine (with Sugar) 4 gm PO BID 01/22/18 01/22/18 History [Questran Packet] Ferrous Sulfate [Feosol] 325 mg PO TID 01/22/18 01/22/18 History Furosemide [Lasix] 20 mg PO DAILY 01/22/18 01/22/18 History Lisinopril [Zestril] 10 mg PO DAILY 01/22/18 01/22/18 History Meloxicam [Mobic] 15 mg PO DAILY 01/22/18 01/22/18 History Metoclopramide HCl [Reglan] 5 mg PO DAILY 01/22/18 01/22/18 History Metoprolol Succinate [Toprol XL] 50 mg PO DAILY 01/22/18 01/22/18 History Nitroglycerin Sl Tabs [Nitrostat] 0.4 mg PO DIRECTED 01/22/18 01/22/18 History Ranitidine HCl [Zantac] 150 mg PO BID 01/22/18 01/22/18 History SUMAtriptan SUCCINATE [Imitrex] 50 mg PO ONCE PRN 01/22/18 01/22/18 History rOPINIRole HCL 3 mg PO HS 01/22/18 01/22/18 History Allergies Allergy/AdvReac Type Severity Reaction Status Date / Time Sulfa (Sulfonamide Allergy Severe Anaphylaxis Verified 01/22/18 14:35 Antibiotics) amoxicillin [From Augmentin] Allergy Rash/Hives Verified 01/22/18 14:35 clavulanic acid Allergy Rash/Hives Verified 01/22/18 14:35 [From Augmentin] morphine Allergy Itching Verified 01/22/18 14:35 Penicillins Allergy Rash/Hives Verified 01/22/18 14:35 adhesive AdvReac Itching Verified 01/22/18 14:35 artificial sweetners Allergy Nausea Uncoded 12/30/17 09:17 Surgical - Exam Vital Signs Temp Pulse Resp BP Pulse Ox 98.3 F 76 18 183/88 97 01/22/18 14:12 01/22/18 14:12 01/22/18 14:12 01/22/18 14:12 01/22/18 14:12 Results - Labs 01/22/18 14:21 01/22/18 14:21 Abnormal Lab Results - Last 24 Hours (Table) 01/22/18 01/22/18 01/22/18 Range/Units 14:21 14:21 14:21 Hgb 10.7 L (11.4-16.0) gm/dL Hct 33.2 L (34.0-46.0) % APTT 21.0 L (22.0-30.0) sec Sodium 136 L (137-145) mmol/L Creatinine 0.48 L (0.52-1.04) mg/dL Glucose 135 H (74-99) mg/dL Urine Protein (Negative) Urine Glucose (UA) (Negative) 01/22/18 Range/Units 14:56 Hgb (11.4-16.0) gm/dL Hct (34.0-46.0) % APTT (22.0-30.0) sec Sodium (137-145) mmol/L Creatinine (0.52-1.04) mg/dL Glucose (74-99) mg/dL Urine Protein Trace H (Negative) Urine Glucose (UA) 2+ H (Negative) Diabetes panel 01/22/18 Range/Units 14:21 Sodium 136 L (137-145) mmol/L Potassium 4.2 (3.5-5.1) mmol/L Chloride 102 (98-107) mmol/L Carbon Dioxide 27 (22-30) mmol/L BUN 12 (7-17) mg/dL Creatinine 0.48 L (0.52-1.04) mg/dL Glucose 135 H (74-99) mg/dL Calcium 9.1 (8.4-10.2) mg/dL AST 24 (14-36) U/L ALT 25 (9-52) U/L Alkaline Phosphatase 126 (38-126) U/L Total Protein 7.2 (6.3-8.2) g/dL Albumin 4.0 (3.5-5.0) g/dL Calcium panel 01/22/18 Range/Units 14:21 Calcium 9.1 (8.4-10.2) mg/dL Albumin 4.0 (3.5-5.0) g/dL Pituitary panel 01/22/18 Range/Units 14:21 Sodium 136 L (137-145) mmol/L Potassium 4.2 (3.5-5.1) mmol/L Chloride 102 (98-107) mmol/L Carbon Dioxide 27 (22-30) mmol/L BUN 12 (7-17) mg/dL Creatinine 0.48 L (0.52-1.04) mg/dL Glucose 135 H (74-99) mg/dL Calcium 9.1 (8.4-10.2) mg/dL Adrenal panel 01/22/18 Range/Units 14:21 Sodium 136 L (137-145) mmol/L Potassium 4.2 (3.5-5.1) mmol/L Chloride 102 (98-107) mmol/L Carbon Dioxide 27 (22-30) mmol/L BUN 12 (7-17) mg/dL Creatinine 0.48 L (0.52-1.04) mg/dL Glucose 135 H (74-99) mg/dL Calcium 9.1 (8.4-10.2) mg/dL Total Bilirubin 0.9 (0.2-1.3) mg/dL AST 24 (14-36) U/L ALT 25 (9-52) U/L Alkaline Phosphatase 126 (38-126) U/L Total Protein 7.2 (6.3-8.2) g/dL Albumin 4.0 (3.5-5.0) g/dL
[2018-01-23] MEDS: HYDROmorphone 1 MG/ML 1 ML SYRINGE IVP PRN ×7 (00:45→21:24)
[2018-01-23] MEDS: ONDANSETRON 4 MG/2 ML VIAL IVP PRN ×3 (04:41→20:08)
[2018-01-23] MEDS: SYMBICORT 80-4.5 MCG INHALER INHALATION SCH ×2 (07:40→21:17)
[2018-01-23] MEDS: FAMOTIDINE 20 MG TAB PO SCH ×2 (07:48→20:03)
[2018-01-23] MEDS: CYCLOBENZAPRINE 10 MG TAB PO SCH ×2 (07:48→20:03)
[2018-01-23] MEDS: LISINOPRIL 10 MG TAB PO SCH (07:49)
[2018-01-23] MEDS: GABAPENTIN 400 MG CAP PO SCH ×4 (07:49→20:03)
[2018-01-23] MEDS: METOPROLOL SUCCINATE (ER) 50 MG TAB.ER.24H PO SCH (07:49)
[2018-01-23 09:41] LABS: Basophils # (A) 0.1 k/uL (0-0.2); Basophils % (A) 1 %; Eosinophils # (A) 0.2 k/uL (0-0.7); Eosinophils % (A) 3 %; HCT 30.8 % (34.0-46.0); HGB 9.7 gm/dL (11.4-16.0); Hypochromasia Moderate; Lymphocytes # (A) 1.9 k/uL (1.0-4.8); Lymphocytes % (A) 29 %; MCH 26.4 pg (25.0-35.0); MCHC 31.5 g/dL (31.0-37.0); MCV 83.9 fL (80.0-100.0); Mean Platelet Volume 6.9; Monocytes # (A) 0.3 k/uL (0-1.0); Monocytes % (A) 5 %; Neutrophils # (A) 3.9 k/uL (1.3-7.7); Neutrophils % (A) 61 %; Platelet Count 263 k/uL (150-450); RBC 3.67 m/uL (3.80-5.40); RDW 14.4 % (11.5-15.5); WBC 6.4 k/uL (3.8-10.6)
[2018-01-23 09:56] LABS: Albumin 3.4 g/dL (3.5-5.0); Anion Gap 7 mmol/L; Blood Urea Nitrogen 10 mg/dL (7-17); Calcium 8.4 mg/dL (8.4-10.2); Carbon Dioxide 24 mmol/L (22-30); Chloride 108 mmol/L (98-107); Glucose 122 mg/dL (74-99); Sodium 139 mmol/L (137-145); Total Protein 6.4 g/dL (6.3-8.2)
[2018-01-23 10:36] LABS: ALT 23 U/L (9-52); AST 30 U/L (14-36); Alkaline Phosphatase 90 U/L (38-126); Potassium 4.5 mmol/L (3.5-5.1)
--- NOTE | 2018-01-23 12:54 | P.PN ---
Subjective Progress Note Date: 01/23/18 47-year-old female being seen in follow-up progress note patient continues to report having persistent left lower quadrant pain unbearable. Stated that she did have a appointment 1:00 in the outpatient setting with the pain management team which she canceled because she is hospitalized patient states this pain feels similar to when she's had prior bowel obstructions "I have chronic pain this is not like my chronic pain nothing seems to help I have nausea and vomiting not able to keep any fluids down. Nursing reports that she's had several liters of fluid given. But no witnessed emesis. Patient points to the left lower quadrant tenderness to the reference point distress with the pain as blood pressure 147/83 heart rate in the 80s Patient was being seen yesterday in the bariatric center was transferred to the emergency room for hypertensive crisis systolic blood pressure was over 200 with severe abdominal pain. CAT scan of the abdomen pelvis was done excluded any acute surgical abdomen patient states she continues to have moderate amount of abdominal pain since admission unchanged Objective - Vital Signs Vital signs: Vital Signs Temp 98.7 F 01/23/18 07:00 Pulse 82 01/23/18 07:00 Resp 16 01/23/18 07:00 BP 147/83 01/23/18 09:10 Pulse Ox 94 L 01/23/18 07:00 Intake & Output 01/22/18 01/23/18 01/23/18 18:59 06:59 18:59 Intake Total 0 Balance 0 Weight 127.097 kg 104.009 kg Intake: Oral 0 Other: # Voids 1 2 - Exam Physical exam 47-year-old female sitting up in bed states continues to have moderate amount of left lower quadrant pain unchanged from admission Lungs adequate air movement bilaterally Heart S1-S2 audible regular Abdomen soft obese not distended mild tenderness left lower quadrant bowel tones present reports nausea sensation no active emesis witnessed Active bowel tones Extremities no edema - Labs CBC & Chem 7: 01/23/18 09:22 01/23/18 09:22 Labs: Abnormal Lab Results - Last 24 Hours (Table) 01/22/18 01/22/18 01/22/18 Range/Units 14:21 14:21 14:21 RBC (3.80-5.40) m/uL Hgb 10.7 L (11.4-16.0) gm/dL Hct 33.2 L (34.0-46.0) % APTT 21.0 L (22.0-30.0) sec Sodium 136 L (137-145) mmol/L Chloride (98-107) mmol/L Creatinine 0.48 L (0.52-1.04) mg/dL Glucose 135 H (74-99) mg/dL Albumin (3.5-5.0) g/dL Urine Protein (Negative) Urine Glucose (UA) (Negative) 01/22/18 01/23/18 01/23/18 Range/Units 14:56 09:22 09:22 RBC 3.67 L (3.80-5.40) m/uL Hgb 9.7 L (11.4-16.0) gm/dL Hct 30.8 L (34.0-46.0) % APTT (22.0-30.0) sec Sodium (137-145) mmol/L Chloride 108 H (98-107) mmol/L Creatinine 0.49 L (0.52-1.04) mg/dL Glucose 122 H (74-99) mg/dL Albumin 3.4 L (3.5-5.0) g/dL Urine Protein Trace H (Negative) Urine Glucose (UA) 2+ H (Negative) Assessment and Plan Assessment: Impression Present on admission hypertension urgency suspect due to moderate abdominal pain Present on admission abdominal pain with a CAT scan of the abdomen pelvis excluding acute surgical abdomen CAT scan abdomen and pelvis obtained on admission demonstrates entercolitis A history of gastric bypass History of multiple prior bowel surgeries with colon resection 3 hernia repair 3 bowel resections Plan Continue recommendations by medicine defer to for medical management Consult pain management recommendations for pain medication Clear liquid diet IV fluid as ordered pain control Home meds as ordered DVT and GI prophylaxis The above impression and plan of care have been discussed and directed by signing physician. Jacquie Ivy nurse practitioner acting as scribe for signing physician.
--- NOTE | 2018-01-23 19:02 | CONS ---
CONSULTATION DATE OF CONSULTATION: 01/23/2018 REASON FOR CONSULTATION: Medical management, requested by Dr. Dumont. CONSULTATION: This is a 47-year-old patient whose family doctor is Dr. Boothe out of [facility]. The patient was admitted by surgeon Dr. Dumont. The patient has a rather extensive medical history. Chronic stable medical conditions include asthma, factor V Leiden deficiency, COPD, diabetes, fibromyalgia, GERD, hypertension, hyperlipidemia, osteoarthritis, obstructive sleep apnea, fatty liver, restless legs syndrome, peripheral neuropathy, bipolar disorder. Patient's fiance is present. The patient did have a history of gastric bypass surgery and also has had multiple other surgical interventions, it looks like, for lysis of adhesions, etc., at least 5 times, whenever she gets abdominal pain. The patient states that on this occasion she was sitting on a recliner; then she bent forward and she felt as if something had grabbed her abdomen, and the pain has been present since then. There has been no fever, no chills. She is not able to keep anything down, though not really vomiting. Last bowel movement was 3 days ago. Patient has passed some flatus. She really feels that she is in need of surgery and feels that is the solution to her problem. She complains of more pain in the left abdominal mid abdomen site. The pain does not radiate anywhere; it is localized right there. REVIEW OF SYSTEMS: CONSTITUTIONAL: Tired. HEENT: None. RESPIRATORY: None. CARDIOVASCULAR: None. GASTROINTESTINAL: As above. GENITOURINARY: None. MUSCULOSKELETAL: Arthritic pain in many joints. DERMATOLOGICAL: None. HEMATOLOGICAL: None. LYMPHATICS: None. PSYCHIATRY: Anxious. NEUROLOGICAL: Numbness and tingling in the feet. PAST MEDICAL HISTORY: 1. Asthma. 2. Factor V Leiden deficiency. 3. COPD. 4. Diabetes mellitus, type 2. 5. Fibromyalgia. 6. GERD. 7. Some hearing disorder. 8. Hyperlipidemia. 9. Hypertension. 10.Mitral valve prolapse. 11.Osteoarthritis. 12.Obstructive sleep apnea. 13.Migraines. 14.Fatty liver. 15.Peripheral neuropathy. 16.Restless legs syndrome. 17.Diabetes has been controlled and is in remission since surgery. 18.Chronic low back pain. PAST SURGICAL HISTORY: 1. Adenoidectomy. 2. Appendectomy. 3. Bariatric surgery. 4. Breast surgery. 5. . 6. Cholecystectomy. 7. Ear surgery. 8. Tonsillectomy. 9. Arthroscopy of right knee x3. 10.Right breast biopsy, negative. 11.Thirteen myringotomies. 12.Laparoscopic Barb-en-Y with lysis of adhesions. 13.Surgical wound debridement x3. 14.Small bowel obstruction. 15.Lysis of adhesions. 16.Three hernia repairs. 17.Three bowel resections. 18.Partial colon resection. PSYCH HISTORY: Bipolar, PTSD. SOCIAL HISTORY: Lives with her fiance and special-needs son. Uses CPAP machine and a cane p.r.n. Does not smoke. Alcohol none. FAMILY HISTORY: DVT, hypertension PE, thyroid, factor V Leiden mutation. HOME MEDICATIONS: 1. Ropinirole 3 mg at bedtime. 2. Imitrex 50 mg p.r.n. 3. Zantac 150 mg b.i.d. 4. Nitrostat 0.4 sublingually p.r.n. 5. Toprol-XL 50 mg p.o. daily. 6. Reglan 5 mg p.o. daily. 7. Mobic 15 mg p.o. daily. 8. Zestril 10 mg p.o. daily. 9. Gabapentin 800 mg q.i.d. 10.Lasix 20 mg p.o. daily. 11.Iron 325 p.o. t.i.d. 12.Flexeril 10 mg p.o. b.i.d. 13.Questran 4 grams p.o. b.i.d. 14.Symbicort 80/4.5 two puffs b.i.d. 15.Tessalon 100 mg t.i.d. 16.Ventolin HFA 2 puffs q.6 p.r.n. ALLERGIES: 1. SULFA. 2. AMOXICILLIN. 3. CLAVULANIC ACID. 4. MORPHINE. 5. PENICILLIN. 6. ADHESIVE. 7. ARTIFICIAL SWEETENERS. PHYSICAL EXAMINATION: VITAL SIGNS ON PRESENTATION: Temperature 98.3, pulse 76, respiration 18, blood pressure 183/88, pulse ox 97% on room air. Repeat blood pressure was down to 156/82. GENERAL APPEARANCE: Morbidly obese. BMI of 45.8. She was lying in bed, rather comfortable, when I walked in. EYES: Pupils equal. Conjunctivae normal. HEENT: External appearance of nose and ears normal. Oral cavity normal. NECK: Soft, thick. JVD unable to assess. Mass not palpable. RESPIRATORY: Effort normal. LUNGS: Fair air entry. CARDIOVASCULAR: First and second sounds normal. Minimal edema. ABDOMEN: Soft. No guarding or rigidity. Bowel sounds are present. There is tenderness on the left side, but abdomen is very soft. Patient also noted to have hyperesthesia on the left side. LYMPHATIC: No lymph node palpable in neck or axillae. PSYCHIATRY: Alert and oriented x3. Mood and affect very anxious-appearing. NEUROLOGICAL: Pupils equal. Cranial nerves grossly intact. Power and sensation grossly intact. Patient has hyperesthesia, especially on the left side of the abdomen. INVESTIGATIONS: White count 7.9, hemoglobin 9.7, platelets 263. Potassium 4.5, BUN 9, creatinine 0.49. ASSESSMENT: 1. Acute abdominal pain. The patient's abdomen is rather soft. There is no white count, no fever, no evidence of infection, though clinical evidence of obstruction. Patient has very hyperesthetic skin, which is more neuropathic. The patient is already on Neurontin for the same. The patient had an appointment with the pain clinic but has not really kept it because she was busy with other things. Patient may have had a micro muscle tear with bending forward. That can typically be taken care of with a heating pad and local massage, which I discussed with her and her fiance. 2. Mild intermittent asthma. 3. Factor V Leiden mutation. 4. No further diabetes after her surgery. 5. Chronic fibromyalgia. 6. Gastroesophageal reflux disease. 7. Hyperlipidemia. 8. Essential hypertension. 9. Primary osteoarthritis. 10.Obstructive sleep apnea. 11.Fatty liver. 12.Restless legs syndrome. 13.Peripheral neuropathy. 14.Bipolar disorder. 15.Morbid obesity with body mass index 44.8. PLAN: Home medications are to be continued. The patient should not be taking an NSAID for a long time. Patient is advised to seek alternative therapy. Patient also advised to do exercise visits in the gym, and this was discussed in detail with the patient and fiance. Also patient's diet is not healthy. We will have the dietitian see the patient for a healthier diet. This was discussed with the patient and the fiancee and he was quite involved in the process. The patient at the same time may use a heating pad and is encouraged to be out of bed. Thank you, Dr. Dumont. MATTIE / ARMANDO: [id number] /
[2018-01-24 00:03] VITALS: RESP 20
[2018-01-24] MEDS: ONDANSETRON 4 MG/2 ML VIAL IVP PRN ×2 (06:08→06:46)
[2018-01-24] MEDS: HYDROmorphone 1 MG/ML 1 ML SYRINGE IVP PRN ×2 (06:10→06:47)
[2018-01-24] MEDS: SYMBICORT 80-4.5 MCG INHALER INHALATION SCH (07:23)
[2018-01-24] MEDS: METOPROLOL SUCCINATE (ER) 50 MG TAB.ER.24H PO SCH (07:42)
[2018-01-24] MEDS: CYCLOBENZAPRINE 10 MG TAB PO SCH (07:42)
[2018-01-24] MEDS: LISINOPRIL 10 MG TAB PO SCH (07:42)
[2018-01-24] MEDS: GABAPENTIN 400 MG CAP PO SCH ×3 (07:42→17:20)
[2018-01-24] MEDS: FAMOTIDINE 20 MG TAB PO SCH (07:42)
--- NOTE | 2018-01-24 09:25 | P.PN ---
Progress Note - Text Progress Note Date: 01/23/18 Patient seen and evaluated. I discussed with the patient no acute surgical intervention warranted. Patient has past history of scar tissue removal. No evidence of acute life- threatening event noted. Hypertensive crisis resolved. We'll proceed with upper GI small bowel follow-through to evaluate for intussusception as cause of her pain. Otherwise patient has known history of chronic pain and pain seeking behaviors noted. Will start diet after small bowel follow-through. Patient was advised discharge in 24 hours pending results of SBFT
--- NOTE | 2018-01-24 14:16 | P.PN ---
Progress Note - Text Progress Note Date: 01/24/18 Patient has been off the floor for a small bowel follow-through study has not been seen anticipate being able to discharge the patient today if the study is negative The above impression and plan of care have been discussed and directed by signing physician. Jacquie Ivy nurse practitioner acting as scribe for signing physician.
[2018-01-24 14:34] VITALS: BP 142/76; PULSE 60; TEMP 98.2
--- NOTE | 2018-01-24 16:07 | FL ---
EXAMINATION TYPE: FL UGI air w small bowel DATE OF EXAM: 01/24/2018 COMPARISON: NONE HISTORY: History of adhesions, abdominal pain TECHNIQUE: A single contrast UGI study is performed with small bowel follow through. FINDINGS: [facility] Nurse image of the abdomen shows no gross abnormality. The esophagus shows normal motility and emptying into the abdomen. Patient is status post Barb-en-Y t here is prompt dumping from the esophagus into the small bowel loops. The small bowel study shows transit to the colon in less than 240 minutes. Approximately 120 minutes there is delay of contrast passing to the left upper quadrant small bowel loops. The small bowel loo ps are prominent. This area is very tender with soft palpation with the inflatable balloon. Patient d id not tolerate laying on her stomach well. Although it could not be demonstrated, effusions are susp ected in this region. Distal small bowel loops have a normal caliber. Ileal and jejunal fold pattern appears normal. The te rminal ileum is visualized appears normal. IMPRESSION: 1. Normal Barb-en-Y upper GI. 2. Contrast transit time to the colon is slightly less than 240 minutes. 3. Prominent small bowel loops with delayed contrast passage to the left upper quadrant. Underlying a dhesions are suspected.
--- NOTE | 2018-01-24 19:06 | P.DS ---
Providers Date of admission: 01/22/18 17:14 Expected date of discharge: 01/24/18 Attending physician: Latricia Dumont Consults: 01/22/18 18:23 Consult Physician Routine Consulting Provider: Margarito Greene Consult Reason/Comments: Medical management Do you want consulting provider notified?: Yes 01/23/18 11:52 Consult Physician Urgent Consulting Provider: Angelina Jones Consult Reason/Comments: pain mtg recs Do you want consulting provider notified?: Yes Primary care physician: Yarely Boothe MD - Discharge Diagnosis(es) (1) Malingering Current Visit: Yes Status: Acute (2) Hypertensive crisis Current Visit: Yes Status: Acute (3) Chronic pain Current Visit: No Status: Chronic (4) Chronic pain syndrome Current Visit: No Status: Chronic (5) H/O gastric bypass Current Visit: No Status: Chronic (6) At risk for readmission to hospital Current Visit: Yes Status: Acute Hospital Course: The patient is a 47-year-old female with known chronic pain syndrome who was a patient of Dr. Rodriguez neurologist who presented initially to the bariatric Center with hypertensive crisis blood pressures over 220s over 110. As a result , she was sent to the emergency room for further evaluation and management. She complained primarily of recurrent left upper quadrant abdominal pain no severe. She has long-standing history of abdominal pain where she has gone to several institutions and had multiple studies including [facility] all of which came back unremarkable. Upon admission, she reported chronic nausea and vomiting even at home however not witnessed by nursing. She was on chronic Dilaudid and had pain seeking behavior although despite being comfortable. Multiple studies including CT of the abdomen and pelvis and upper GI were negative for acute bowel obstruction. Patient was told of the results and as a result no acute surgical intervention warranted. Outpatient management for diagnostic laparoscopy described. Patient sought pain meds. She was advised to follow up with her primary care doctor or see pain specialist given the new narcotic rules. Overall, patient needs chronic pain management where repeat hospitalizations are unwarranted. Pertinent Studies: CT of the pelvis and abdomen demonstrates no free air or obstruction Upper GI demonstrates no evidence of bowel obstruction Patient Condition at Discharge: Fair Plan - Discharge Summary Discharge Rx Participant: Yes New Discharge Prescriptions: No Action Gabapentin 800 mg PO QID Albuterol Inhaler [Ventolin Hfa Inhaler] 2 puff INHALATION RT-Q6H PRN PRN Reason: Shortness Of Breath Cyclobenzaprine [Flexeril] 10 mg PO BID rOPINIRole HCL 3 mg PO HS SUMAtriptan SUCCINATE [Imitrex] 50 mg PO ONCE PRN PRN Reason: ONSET OF HEADACHE Ranitidine HCl [Zantac] 150 mg PO BID Nitroglycerin Sl Tabs [Nitrostat] 0.4 mg PO DIRECTED Metoprolol Succinate [Toprol XL] 50 mg PO DAILY Metoclopramide HCl [Reglan] 5 mg PO DAILY Meloxicam [Mobic] 15 mg PO DAILY Lisinopril [Zestril] 10 mg PO DAILY Furosemide [Lasix] 20 mg PO DAILY Ferrous Sulfate [Feosol] 325 mg PO TID Cholestyramine (with Sugar) [Questran Packet] 4 gm PO BID Benzonatate [Tessalon Perles] 100 mg PO TID Budesonide/Formoterol Fumarate [Symbicort 80-4.5 Mcg Inhaler] 2 puff INHALATION RT-BID Discharge Medication List Gabapentin 800 mg PO QID 03/30/15 [History] Albuterol Inhaler [Ventolin Hfa Inhaler] 2 puff INHALATION RT-Q6H PRN 11/28/15 [ History] Cyclobenzaprine [Flexeril] 10 mg PO BID 08/05/16 [History] Benzonatate [Tessalon Perles] 100 mg PO TID 01/22/18 [History] Budesonide/Formoterol Fumarate [Symbicort 80-4.5 Mcg Inhaler] 2 puff INHALATION RT-BID 01/22/18 [History] Cholestyramine (with Sugar) [Questran Packet] 4 gm PO BID 01/22/18 [History] Ferrous Sulfate [Feosol] 325 mg PO TID 01/22/18 [History] Furosemide [Lasix] 20 mg PO DAILY 01/22/18 [History] Lisinopril [Zestril] 10 mg PO DAILY 01/22/18 [History] Meloxicam [Mobic] 15 mg PO DAILY 01/22/18 [History] Metoclopramide HCl [Reglan] 5 mg PO DAILY 01/22/18 [History] Metoprolol Succinate [Toprol XL] 50 mg PO DAILY 01/22/18 [History] Nitroglycerin Sl Tabs [Nitrostat] 0.4 mg PO DIRECTED 01/22/18 [History] Ranitidine HCl [Zantac] 150 mg PO BID 01/22/18 [History] SUMAtriptan SUCCINATE [Imitrex] 50 mg PO ONCE PRN 01/22/18 [History] rOPINIRole HCL 3 mg PO HS 01/22/18 [History] Follow up Appointment(s)/Referral(s): Yarely Boothe MD [Primary Care Provider] - 1-2 days B[facility] Center,. [NON-STAFF] - 01/29/18 Patient Instructions/Handouts: Abdominal Pain (ED), Chronic Back Pain (ED) Activity/Diet/Wound Care/Special Instructions: Diet as tolerated Discharge Disposition: HOME SELF-CARE
== END 2018-01-24 19:10 | disposition home or self-care (01) ==
LOC: EC 14:00 → 4MS4W 17:14 → 4SSUR 01-23 22:16 → 4MS4W 01-23 22:16
PROVIDERS: ADMIT Surgery Plastic and Reconstructive Surgery; ATTEND Surgery Plastic and Reconstructive Surgery
DX: R10.12 Left upper quadrant pain (principal); Z76.5 Malingerer [conscious simulation]; I16.9 Hypertensive crisis, unspecified; G89.4 Chronic pain syndrome; Z98.84 Bariatric surgery status; I10 Essential (primary) hypertension; M79.7 Fibromyalgia; K21.9 Gastro-esophageal reflux disease without esophagitis; K52.9 Noninfective gastroenteritis and colitis, unspecified; J44.9 Chronic obstructive pulmonary disease, unspecified; I34.1 Nonrheumatic mitral (valve) prolapse; H91.90 Unspecified hearing loss, unspecified ear; G47.33 Obstructive sleep apnea (adult) (pediatric); E78.5 Hyperlipidemia, unspecified; E11.42 Type 2 diabetes mellitus with diabetic polyneuropathy; Z99.89 Dependence on other enabling machines and devices; G43.909 Migraine, unspecified, not intractable, without status migrainosus; G25.81 Restless legs syndrome; D68.51 Activated protein C resistance; K76.0 Fatty (change of) liver, not elsewhere classified; J45.20 Mild intermittent asthma, uncomplicated; M19.91 Primary osteoarthritis, unspecified site; M54.5 Low back pain; F43.10 Post-traumatic stress disorder, unspecified; F31.9 Bipolar disorder, unspecified; F41.9 Anxiety disorder, unspecified; E66.01 Morbid (severe) obesity due to excess calories; Z68.41 Body mass index [BMI] 40.0-44.9, adult; Z79.1 Long term (current) use of non-steroidal anti-inflammatories (NSAID); Z79.51 Long term (current) use of inhaled steroids; Z88.0 Allergy status to penicillin; Z88.2 Allergy status to sulfonamides; Z88.5 Allergy status to narcotic agent; Z91.02 Food additives allergy status; Z88.8 Allergy status to other drugs, medicaments and biological substances; Z91.048 Other nonmedicinal substance allergy status; Z87.891 Personal history of nicotine dependence; Z90.49 Acquired absence of other specified parts of digestive tract; Z87.01 Personal history of pneumonia (recurrent); Z83.3 Family history of diabetes mellitus; Z82.49 Family history of ischemic heart disease and other diseases of the circulatory system; Z83.2 Family history of diseases of the blood and blood-forming organs and certain disorders involving the immune mechanism; Z83.49 Family history of other endocrine, nutritional and metabolic diseases
CPT/HCPCS: 96376 ×4; 96361 ×2; 96374; 96375; 99285; 36415; 94640 ×3; 80053 ×2; 82150; 83605; 83690; 85025 ×2; 85610; 85730; 81003; 74249; 74177; G0378 ×3; J2765; J2405 ×3; J1170 ×3; Q9967

== ENCOUNTER → 2018-01-22 | Outpatient (CLI) | payer MEDICARE, OTHER ==
--- NOTE | 2018-01-22 14:03 | P.PN ---
Subjective Progress Note Date: 01/22/18 HPI: She comes in with 24 hr history of abdominal pain of the left lower quadrant. She had similar episode in the past and seen by many hospitals as a result. She has history of chronic pain and has been lost to follow-up. She comes in with hypertensive urgency systolic over 200s. A/P: 1. Recommend going to ER for immediate treatment. I had personally called the ER and made aware of patient being sent to the ER.
[2018-01-22 18:28] VITALS: BP 202/100; PULSE 80; TEMP 98.3
[2018-01-22 18:32] VITALS: BMI 54.6
== END | disposition home or self-care (01) ==
LOC: BARWHC3 13:12
PROVIDERS: ATTEND Surgery Plastic and Reconstructive Surgery
DX: Z53.9 Procedure and treatment not carried out, unspecified reason (principal)

== ENCOUNTER → 2018-01-29 | Outpatient (CLI) | payer MEDICARE ==
[2018-01-29 17:24] VITALS: BP 173/94; PULSE 71; TEMP 98.6; BMI 43.8
--- NOTE | 2018-01-29 18:09 | P.PN ---
Subjective Progress Note Date: 01/29/18 DATE OF SERVICE: 01/29/2018 CHIEF COMPLAINT: Follow-up gastric bypass. HISTORY OF PRESENT ILLNESS: Jeannie Moore is a 47-year-old female who is status post Barb-en-Y gastric bypass in October 2012. She is 5 years out. She was hospitalized last week for acute on chronic abdominal pain. Multiple diagnostic studies were unremarkable for acute small bowel obstruction or pneumoperitoneum. She reports pain medication requirements. She has not followed up with a pain provider or primary care provider Her highest weight for a 5-foot, 0-inch frame was 310 pounds. Cypress body weight is 127 pounds. Body mass index was 60.7 now 45.3. Today she comes weighing 232 pounds from 227 pounds, 1 week ago. Percent excess weight loss is 43 %. PAST MEDICAL HISTORY: 1. Morbi obesity, BMI initial 60.7 2. Obstructive sleep apnea. 3. Asthma. 4. Osteoarthritis. 5. Depression. 6. Fibromyalgia. 7. Gastroesophageal reflux disease. 8. Diabetes type 2. 9. Hypertension. 10. Dyslipidemia. 11. Bilateral lower extremity edema. 12. Polycystic ovarian syndrome. 13. Restless leg syndrome. 14. Depression. 15. Cardiomyopathy. 16. Anxiety. 17. Super morbid obesity. 18. Chronic sinusitis. 19. Panniculitis. PAST SURGICAL HISTORY: 1. with complication of wound infection. 2. D&C. 3. Right breast biopsy. 4. Multiple myringotomy tubes. 5. Tonsillectomy. 6. Adenoidectomy. 7. Heart catheterization. 8. Laparoscopic cholecystectomy. 9. Upper endoscopy. 10. Multiple right knee arthroscopies. 11. Right knee surgery. 12. Gastric bypass, 2013. 13. 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 14. Multiple diagnostic laparoscopies with extensive lysis of adhesions, 2014. 15. Diagnostic laparoscopy with revision of gastrojejunostomy for intussusception, 2014. MEDICATIONS: 1. Gabapentin. 2. Vitamin B12. 3. Pulmicort. 4. Ventolin inhaler. 5. Zanaflex. 6. Requip. 7. Thiamine. 8. Nitroglycerin. 9. Scopolamine patch. ALLERGIES: 1. SULFA. 2. MORPHINE. SOCIAL HISTORY: No active tobacco use. She is engaged. FAMILY HISTORY: Pertinent for bladder, breast, colon cancer and lymphoma, prostate cancer, stomach cancer, morbid obesity as well as factor V Leiden disease. REVIEW OF SYSTEMS: CONSTITUTIONAL: Her highest weight for a 5-foot, 0-inch frame was 310 pounds. Cypress body weight is 127 pounds. Body mass index was 60.7. ENDOCRINE: No reports of checking her blood sugar glucose for prior history of insulin-dependent diabetes. Prior hemoglobin A1c was at least 15. MUSCULOSKELETAL: Has chronic and diffuse joint pain, including chronic pain syndrome. Has chronic lower back pain. NEURO: History of chronic pain syndrome. No stroke or seizure disorder. GASTROINTESTINAL: No reports of blood in stools. She has intermittent nausea and vomiting. SKIN: Recurrent panniculitis, including ulcerations and tenderness from her pannus. She takes nystatin powder for control of her symptoms. CARDIOVASCULAR: No reports of chest pain or heart attack. RESPIRATORY: History of asthma, bronchitis including obstructive sleep apnea, which is also improved since her procedure. GENITOURINARY: History of irregular masses. PSYCH: History of depression, including anxiety and mental illness. HEMATOLOGIC: History of factor V Leiden carrier. PHYSICAL EXAM: VITAL SIGNS: 5 foot 0, 226 pounds. Body mass index 45.3 Vital Signs Temp 98.6 F 01/29/18 17:19 Pulse 71 01/29/18 17:19 Resp BP 173/94 01/29/18 17:19 Pulse Ox ABDOMEN: Soft. Nontender. Nondistended. No peritonitis. GENERAL: Well-developed, pleasant female in no acute distress. HEENT: Extraocular movements are grossly intact. No sclerae icterus. MUSCULOSKELETAL: No clubbing, cyanosis, or edema. CHEST: Nonlabored respirations with equal bilateral excursions. CARDIOVASCULAR: Regular rate and rhythm. NEURO: No focal or lateralizing signs. Cranial nerves II-12 grossly intact. PSYCH: Appropriate affect. Alert and order person place and time. SKIN: Good skin. Well perfused. LABS: Pending ASSESSMENT: 1. Morbid obesity from BMI reduced from 58.7 to 44.3 2. Barb-En-Y Gastric bypass. 3. Chronic abdominal pain. 4. Diet controlled diabetes type 2. 5. Hypertension with heart disease. 6. Hypercholesterolemia. 7. Vitamin D deficiency. 8. Chronic pain syndrome. 9. Panniculitis. 10. Hypertensive crisis 11. Peritoneal adhesions with left upper quadrant abdominal pain. PLAN: 1. Need pain specialist for chronic pain syndrome prior to any elective surgical intervention. 2. Follow-up with PCP for medical management. 3. Recommend outpatient robotic lysis of adhesions for history of peritoneal adhesions and abdominal pain. She is intermediate risk due to her multiple co- morbidites including obesity and history of perioperative infections. Objective - Vital Signs Vital signs: Vital Signs Temp 98.6 F 01/29/18 17:19 Pulse 71 01/29/18 17:19 Resp BP 173/94 01/29/18 17:19 Pulse Ox Intake & Output 01/28/18 01/29/18 01/29/18 18:59 06:59 18:59 Weight 105.233 kg
== END | disposition home or self-care (01) ==
LOC: BARWHC3 15:39
PROVIDERS: ATTEND Surgery Plastic and Reconstructive Surgery
DX: Z09 Encounter for follow-up examination after completed treatment for conditions other than malignant neoplasm (principal); G89.4 Chronic pain syndrome; R63.4 Abnormal weight loss; E66.01 Morbid (severe) obesity due to excess calories; E11.9 Type 2 diabetes mellitus without complications; I11.9 Hypertensive heart disease without heart failure; E78.00 Pure hypercholesterolemia, unspecified; E55.9 Vitamin D deficiency, unspecified; M79.3 Panniculitis, unspecified; I16.9 Hypertensive crisis, unspecified; K66.0 Peritoneal adhesions (postprocedural) (postinfection); R10.12 Left upper quadrant pain; F32.9 Major depressive disorder, single episode, unspecified; F41.9 Anxiety disorder, unspecified; J45.909 Unspecified asthma, uncomplicated; G47.33 Obstructive sleep apnea (adult) (pediatric); K21.9 Gastro-esophageal reflux disease without esophagitis; I42.9 Cardiomyopathy, unspecified; E28.2 Polycystic ovarian syndrome; G25.81 Restless legs syndrome; M19.90 Unspecified osteoarthritis, unspecified site; M79.7 Fibromyalgia; Z68.42 Body mass index [BMI] 45.0-49.9, adult; J32.9 Chronic sinusitis, unspecified; Z88.5 Allergy status to narcotic agent; Z83.49 Family history of other endocrine, nutritional and metabolic diseases; Z98.84 Bariatric surgery status; Z88.2 Allergy status to sulfonamides; Z79.899 Other long term (current) drug therapy; Z98.890 Other specified postprocedural states; Z95.5 Presence of coronary angioplasty implant and graft; Z90.89 Acquired absence of other organs
CPT/HCPCS: 99211

== ENCOUNTER → 2018-02-27 | Outpatient (CLI) | payer MEDICARE ==
[2018-02-27 11:46] VITALS: RESP 16
--- NOTE | 2018-02-27 12:20 | P.PAINCN ---
History of Present Illness - Reason for Consult Consult date: 02/27/18 - History of Present Illness Jeannie is a 47-year-old female presents today as a new patient consult. She was referred to us by Dr. Gabriel's office. She presents today with multiple areas of pain including neck shoulder and low back. She has a history of bariatric surgery has had multiple abdominal surgeries since then. She has had chronic low back pain for many years since 2007 when she feels she heard shoveling snow. She has not had any back surgery. She has had multiple injections from a pain physician [place] greater than 3 years ago. The pain physicians offices been closed permanently. She reports she used to be on multiple opiate medication is no longer been on these medications as of recently. She is diabetic and has diabetic neuropathy involving both feet and hands. He reports pain across her low back which radiates into both eyes. She reports numbness tingling bilateral lower extremities which is chronic in nature secondary to her diabetes which is not in remission. She reports chronic neck pain which radiates into both arms as well as left shoulder pain which she has a rotator cuff tear. She is scheduled to have repeat surgery in her abdomen with Dr. Gabriel and is interested in having regional anesthesia for surgery to avoid having chronic pain issues while she is an inpatient for surgery. She denies any bowel or bladder incontinence. She has chronic nausea and dysphagia secondary to her bariatric surgery. She denies being on any blood thinners. She denies any blood in her stool. She denies any weakness or specific falls related to her back or neck. Review of Systems 12 point review of systems is done and is negative except as noted in the HPI Past Medical History Past Medical History: Asthma, Blood Disorder, Chest Pain / Angina, COPD, Diabetes Mellitus, Fibromyalgia, GERD/Reflux, Hearing Disorder / Deafness, Hyperlipidemia, Hypertension, Liver Disease, Mitral Valve Prolapse (MVP), Musculoskeletal Disorder, Osteoarthritis (OA), Pneumonia, Respiratory Disorder, Sleep Apnea/CPAP/BIPAP Additional Past Medical History / Comment(s): 01-22-18 pt wants flu vaccine while here. MIGRAINES, DEGENERATIVE DISC DISEASE, FATTY LIVER, LEIDEN FACTOR 5, OCCASIONAL SWELLING IN LOWER EXT.NEUROPATHY, RLS, diabetes is in remission since surgery, chronic back pain History of Any Multi-Drug Resistant Organisms: None Reported Past Surgical History: Adenoidectomy, Appendectomy, Bariatric Surgery, Breast Surgery, Section, Cholecystectomy, Ear Surgery, Heart Catheterization, Hernia Repair, Orthopedic Surgery, Tonsillectomy Additional Past Surgical History / Comment(s): ARTHROSCOPY RT KNEE X3, RT BREAST BX-NEG, (13) MYRINGOTOMYS. laparoscopic danielle-en-y with lysis of adhesions 2013; Surgical wound debridement x3 ; SX TO REMOVED SCAR TISSUE FROM PREVIOUS ABD SX;EGD ; LAP EXAM- APPY SMALL BOWEL OBSTRUCTION LYSIS OFF ADHESIONS , 3 hernia repairs, 3 bowel resection, 07/2016 colon resection Past Anesthesia/Blood Transfusion Reactions: No Reported Reaction Additional Past Anesthesia/Blood Transfusion Reaction / Comm: SEVERE HEADACHE AFTER LAST SCOPE, clausterphobia Past Psychological History: Anxiety, Bipolar, Depression, PTSD Additional Psychological History / Comment(s): SOCIAL PHOBIA. pt lives with nestor and a special needs son. has cpap machine and cane that she uses as needed Smoking Status: Former smoker Past Alcohol Use History: None Reported Additional Past Alcohol Use History / Comment(s): OCC CIG USE IN PAST age 20 to age 21 Past Drug Use History: None Reported - Past Family History Mother Family Medical History: Deep Vein Thrombosis (DVT), Hypertension, Pulmonary Embolus, Thyroid Disorder Additional Family Medical History / Comment(s): FACTOR 5 LEIDEN, MVP Father Family Medical History: Diabetes Mellitus, Hypertension, Myocardial Infarction ( [place]) Additional Family Medical History / Comment(s): AGE 59 [place] Medications and Allergies Home Medications Medication Instructions Recorded Confirmed Type Gabapentin 800 mg PO QID 03/30/15 01/29/18 History Albuterol Inhaler [Ventolin Hfa 2 puff INHALATION RT-Q6H PRN 11/28/15 01/29/18 History Inhaler] Cyclobenzaprine [Flexeril] 10 mg PO BID 08/05/16 01/29/18 History Benzonatate [Tessalon Perles] 100 mg PO TID 01/22/18 01/29/18 History Budesonide/Formoterol Fumarate 2 puff INHALATION RT-BID 01/22/18 01/29/18 History [Symbicort 80-4.5 Mcg Inhaler] Ferrous Sulfate [Feosol] 325 mg PO TID 01/22/18 01/29/18 History Furosemide [Lasix] 20 mg PO DAILY 01/22/18 01/29/18 History Lisinopril [Zestril] 10 mg PO DAILY 01/22/18 01/29/18 History Metoclopramide HCl [Reglan] 5 mg PO DAILY 01/22/18 01/29/18 History Metoprolol Succinate [Toprol XL] 50 mg PO DAILY 01/22/18 01/29/18 History Nitroglycerin Sl Tabs [Nitrostat] 0.4 mg PO DIRECTED 01/22/18 01/29/18 History Ranitidine HCl [Zantac] 150 mg PO BID 01/22/18 01/29/18 History SUMAtriptan SUCCINATE [Imitrex] 50 mg PO ONCE PRN 01/22/18 01/29/18 History rOPINIRole HCL 3 mg PO HS 01/22/18 01/29/18 History Allergies Allergy/AdvReac Type Severity Reaction Status Date / Time Sulfa (Sulfonamide Allergy Severe Anaphylaxis Verified 02/27/18 11:33 Antibiotics) amoxicillin [From Augmentin] Allergy Rash/Hives Verified 02/27/18 11:33 clavulanic acid Allergy Rash/Hives Verified 02/27/18 11:33 [From Augmentin] morphine Allergy Itching Verified 02/27/18 11:33 Penicillins Allergy Rash/Hives Verified 02/27/18 11:33 adhesive AdvReac Itching Verified 02/27/18 11:33 artificial sweetners Allergy Nausea Uncoded 02/27/18 11:33 Physical Exam Vitals: Vital Signs Resp Pulse Ox 02/27/18 11:36 16 94 L Intake and Output 02/26/18 02/27/18 02/27/18 22:59 06:59 14:59 Other: Weight 108.862 kg General: Awake and alert oriented 3 no distress, obese Respiratory exam: No audible wheezing no accessory muscle usage Cardiovascular exam: regular rate, palpable bilateral pulses, no lower extremity edema Abdominal exam: No distention nontender to palpation Cervical spine: Normal alignment, Spurling's negative, facet loading positive bilateral Lumbar spine: Loss of lumbar lordosis, normal alignment, tender to palpation over bilateral paraspinal muscles, facet loading is positive bilaterally. Straight leg raise is positive bilateral at about 45. Strength is 4-5 in bilateral lower extremities Sacroiliac joints: Tender to palpation, GOYO is negative, Gaenselon negative Neuro exam: Decreased pinprick sensation in bilateral lower extremities. Deep tendon reflexes are absent in bilateral patellar and Achilles in the lower extremities. Deep tendon reflexes are normal in the upper extremities. Pinprick sensation is normal in the upper extremities. Pavithra's is negative. Psych exam: Cooperative, appropriate mood Assessment and Plan Assessment: 1 lumbar radiculopathy #2 lumbar spondylosis #3 morbid obesity #4 chronic pain Plan: After discussion with the patient felt that her diabetic neuropathy is troublesome for her and like to increase her Neurontin dose to 800 mg 3 times per day. Also discussed with her that opioids do not be a good method for treating her chronic pain. Patient is in agreement. After examination and discussion and evaluation of her MRI feel that lumbar epidural steroid injection may be beneficial for her. This time we will trial a L4-L5 epidural steroid injection and potentially series of 3 if needed. When the patient is admitted for surgery in the hospital would recommend doing either an epidural catheter or TAP Block prior to her procedure. PQRS Measure Charge Sheet PQRS Narrative: Smoking Status Former smoker Do You Want the Pneumonia No Vaccine AT THIS TIME? Pain Intensity [Bilateral 9 Lower Back] Scale Used Numeric (1 - 10) Hx Alcohol Use (MH) No Home Medications: Ambulatory Orders Gabapentin 800 mg PO QID 03/30/15 Albuterol Inhaler [Ventolin Hfa Inhaler] 2 puff INHALATION RT-Q6H PRN 11/28/15 Cyclobenzaprine [Flexeril] 10 mg PO BID 08/05/16 Benzonatate [Tessalon Perles] 100 mg PO TID 01/22/18 Budesonide/Formoterol Fumarate [Symbicort 80-4.5 Mcg Inhaler] 2 puff INHALATION RT-BID 01/22/18 Ferrous Sulfate [Feosol] 325 mg PO TID 01/22/18 Furosemide [Lasix] 20 mg PO DAILY 01/22/18 Lisinopril [Zestril] 10 mg PO DAILY 01/22/18 Metoclopramide HCl [Reglan] 5 mg PO DAILY 01/22/18 Metoprolol Succinate [Toprol XL] 50 mg PO DAILY 01/22/18 Nitroglycerin Sl Tabs [Nitrostat] 0.4 mg PO DIRECTED 01/22/18 Ranitidine HCl [Zantac] 150 mg PO BID 01/22/18 SUMAtriptan SUCCINATE [Imitrex] 50 mg PO ONCE PRN 01/22/18 rOPINIRole HCL 3 mg PO HS 01/22/18
[2018-02-27 12:52] VITALS: BP 178/92; PULSE 71
== END ==
LOC: PNWHC3 11:17
PROVIDERS: ATTEND Hospitalist
DX: G89.29 Other chronic pain (principal); M47.26 Other spondylosis with radiculopathy, lumbar region; E66.01 Morbid (severe) obesity due to excess calories; J45.909 Unspecified asthma, uncomplicated; E78.5 Hyperlipidemia, unspecified; I10 Essential (primary) hypertension; Z87.891 Personal history of nicotine dependence; Z79.899 Other long term (current) drug therapy; Z88.1 Allergy status to other antibiotic agents; Z88.8 Allergy status to other drugs, medicaments and biological substances; Z88.2 Allergy status to sulfonamides; Z88.5 Allergy status to narcotic agent; Z91.09 Other allergy status, other than to drugs and biological substances; Z91.018 Allergy to other foods
CPT/HCPCS: 99211

== ENCOUNTER 2018-03-21 08:43 | Emergency (ER) | payer MEDICARE ==
[2018-03-21 08:50] VITALS: BP 172/102; PULSE 77; RESP 18; TEMP 98.8
[2018-03-21] MEDS ORDERED: traMADol 50 MG STARTER PACK 3 TAB BTL PO STA (09:15)
--- NOTE | 2018-03-21 09:15 | ED ---
Skin/Abscess/FB HPI - General Chief complaint: Skin/Abscess/Foreign Body Stated complaint: Head Pain, lump on the back of neck Time Seen by Provider: 03/21/18 09:03 Source: patient, RN notes reviewed Mode of arrival: ambulatory Limitations: no limitations - History of Present Illness Initial comments: 47 year old female presents emergency Department chief complaint rash on her head. Patient states that has been at for approximately one week. Patient states that she's also had some sores areas. Patient is concerned about possible infection. She did have recent abscesses a few months ago. Patient denies fever or chills. States the pain in her head is from the rash. Denies any neck pain or neck stiffness. Denies any fevers or chills. Patient denies any new products including soaps or lotions. - Related Data Home Medications Medication Instructions Recorded Confirmed Gabapentin 800 mg PO TID 03/30/15 03/04/18 Albuterol Inhaler [Ventolin Hfa 2 puff INHALATION RT-Q6H PRN 11/28/15 03/04/18 Inhaler] Cyclobenzaprine [Flexeril] 10 mg PO BID 08/05/16 03/04/18 Benzonatate [Tessalon Perles] 100 mg PO TID PRN 01/22/18 03/04/18 Budesonide/Formoterol Fumarate 2 puff INHALATION RT-BID 01/22/18 03/04/18 [Symbicort 80-4.5 Mcg Inhaler] Ferrous Sulfate [Feosol] 325 mg PO TID 01/22/18 03/04/18 Furosemide [Lasix] 20 mg PO DAILY 01/22/18 03/04/18 Lisinopril [Zestril] 10 mg PO DAILY 01/22/18 03/04/18 Metoclopramide HCl [Reglan] 5 mg PO DAILY PRN 01/22/18 03/04/18 Metoprolol Succinate [Toprol XL] 50 mg PO DAILY 01/22/18 03/04/18 Nitroglycerin Sl Tabs [Nitrostat] 0.4 mg PO DIRECTED PRN 01/22/18 03/04/18 Ranitidine HCl [Zantac] 150 mg PO BID 01/22/18 03/04/18 SUMAtriptan SUCCINATE [Imitrex] 50 mg PO ONCE PRN 01/22/18 03/04/18 rOPINIRole HCL 2 mg PO TID 01/22/18 03/04/18 Cholecalciferol [Vitamin D3] 10,000 unit PO DAILY 03/04/18 03/04/18 Magnesium 400 mg PO DAILY 03/04/18 03/04/18 Vit B Complx C/Folic Acid/Zinc 1 each PO DAILY 03/04/18 03/04/18 [Renaplex Tablet] Zinc 50 mg PO DAILY 03/04/18 03/04/18 Previous Rx's Medication Instructions Recorded Cephalexin [Keflex] 500 mg PO Q6HR #40 cap 03/21/18 Ibuprofen [Motrin] 600 mg PO Q8HR PRN #30 tab 03/21/18 valACYclovir HCL [Valtrex] 1,000 mg PO Q8HR #30 tab 03/21/18 Allergies Allergy/AdvReac Type Severity Reaction Status Date / Time Sulfa (Sulfonamide Allergy Severe Anaphylaxis Verified 03/04/18 15:57 Antibiotics) adhesive tape Allergy BLISTERS Verified 03/04/18 15:58 amoxicillin [From Augmentin] Allergy Rash/Hives Verified 03/04/18 15:57 clavulanic acid Allergy Rash/Hives Verified 03/04/18 15:57 [From Augmentin] codeine Allergy ABDOMINAL Verified 03/04/18 15:57 PAIN, MIGRAINE HEADACHE morphine Allergy Itching Verified 03/04/18 15:57 Penicillins Allergy Rash/Hives Verified 03/04/18 15:57 adhesive AdvReac Itching Verified 03/04/18 15:57 artificial sweetners Allergy Nausea, Uncoded 03/04/18 15:57 MIGRAINE HEADACHE Review of Systems ROS Statement: Those systems with pertinent positive or pertinent negative responses have been documented in the HPI. ROS Other: All systems not noted in ROS Statement are negative. Past Medical History Past Medical History: Asthma, Blood Disorder, Chest Pain / Angina, COPD, Diabetes Mellitus, Fibromyalgia, GERD/Reflux, Hearing Disorder / Deafness, Hyperlipidemia, Hypertension, Liver Disease, Mitral Valve Prolapse (MVP), Musculoskeletal Disorder, Osteoarthritis (OA), Pneumonia, Respiratory Disorder, Sleep Apnea/CPAP/BIPAP Additional Past Medical History / Comment(s): 01-22-18 pt wants flu vaccine while here. MIGRAINES, DEGENERATIVE DISC DISEASE, FATTY LIVER, LEIDEN FACTOR 5, OCCASIONAL SWELLING IN LOWER EXT.NEUROPATHY, RLS, diabetes is in remission since surgery, chronic back pain, PATIENT HAS BEEN OFF MEDS FOR DIABETES SINCE BARIATRIC SURGERY History of Any Multi-Drug Resistant Organisms: None Reported Past Surgical History: Adenoidectomy, Appendectomy, Bariatric Surgery, Bowel Resection, Breast Surgery, Section, Cholecystectomy, Ear Surgery, Heart Catheterization, Hernia Repair, Orthopedic Surgery, Tonsillectomy Additional Past Surgical History / Comment(s): ARTHROSCOPY RT KNEE X3, RT BREAST BX-NEG, (13) MYRINGOTOMYS. laparoscopic danielle-en-y with lysis of adhesions 2013; Surgical wound debridement x3 ; SX TO REMOVED SCAR TISSUE FROM PREVIOUS ABD SX;EGD ; LAP EXAM- APPY SMALL BOWEL OBSTRUCTION LYSIS OFF ADHESIONS , 3 hernia repairs, 3 bowel resection, 07/2016 colon resection Past Anesthesia/Blood Transfusion Reactions: No Reported Reaction Additional Past Anesthesia/Blood Transfusion Reaction / Comment(s): SEVERE HEADACHE AFTER LAST SCOPE, clausterphobia Past Psychological History: Anxiety, Bipolar, Depression, PTSD Smoking Status: Former smoker Past Alcohol Use History: None Reported Past Drug Use History: None Reported - Past Family History Mother Family Medical History: Deep Vein Thrombosis (DVT), Hypertension, Pulmonary Embolus, Thyroid Disorder Additional Family Medical History / Comment(s): FACTOR 5 LEIDEN, MVP Father Family Medical History: Diabetes Mellitus, Hypertension, Myocardial Infarction ( [place]) Additional Family Medical History / Comment(s): AGE 59 [place] General Exam Limitations: no limitations General appearance: alert, in no apparent distress Head exam: Present: atraumatic, normocephalic. Absent: normal inspection ( Vesicles and a large abscess noted on the right side of the scalp, sebaceous cyst noted) Eye exam: Present: normal appearance, PERRL, EOMI. Absent: scleral icterus, conjunctival injection, periorbital swelling ENT exam: Present: normal exam, normal oropharynx, mucous membranes moist Neck exam: Present: normal inspection, full ROM. Absent: tenderness, meningismus, lymphadenopathy Respiratory exam: Present: normal lung sounds bilaterally. Absent: respiratory distress, wheezes, rales, rhonchi, stridor Cardiovascular Exam: Present: regular rate, normal rhythm, normal heart sounds. Absent: systolic murmur, diastolic murmur, rubs, gallop, clicks Skin exam: Present: warm, dry, intact Course Vital Signs 03/21/18 08:45 Temperature 98.8 F Pulse Rate 77 Respiratory 18 Rate Blood Pressure 172/102 O2 Sat by Pulse 100 Oximetry Medical Decision Making - Medical Decision Making 47-year-old female presented for rash. Patient appears to have shingles on the right side of her scalp there is no involvement of her right eye. Patient does have noted sebaceous cysts and large abscess on her scalp. Patient will be given antibiotics and antivirals. Patient advised follow-up with PCP return for any worsening symptoms. Disposition Clinical Impression: Herpes zoster, Sebaceous cyst Disposition: HOME SELF-CARE Condition: Stable Instructions (If sedation given, give patient instructions): Shingles (ED) Additional Instructions: Please return to the Emergency Department if symptoms worsen or any other concerns. Prescriptions: Cephalexin [Keflex] 500 mg PO Q6HR #40 cap Ibuprofen [Motrin] 600 mg PO Q8HR PRN #30 tab PRN Reason: Pain valACYclovir HCL [Valtrex] 1,000 mg PO Q8HR #30 tab Is patient prescribed a controlled substance at d/c from ED?: No Referrals: None,Stated [Primary Care Provider] - 1-2 days Time of Disposition: 09:15
== END 2018-03-21 09:34 | disposition home or self-care (01) ==
LOC: EC 08:43
DX: B02.9 Zoster without complications (principal); L72.3 Sebaceous cyst; L02.811 Cutaneous abscess of head [any part, except face]; I10 Essential (primary) hypertension; J44.9 Chronic obstructive pulmonary disease, unspecified; M79.7 Fibromyalgia; K21.9 Gastro-esophageal reflux disease without esophagitis; H91.90 Unspecified hearing loss, unspecified ear; G47.30 Sleep apnea, unspecified; G62.9 Polyneuropathy, unspecified; G89.29 Other chronic pain; G25.81 Restless legs syndrome; F41.9 Anxiety disorder, unspecified; Z87.891 Personal history of nicotine dependence; Z88.0 Allergy status to penicillin; Z88.2 Allergy status to sulfonamides; Z88.5 Allergy status to narcotic agent; Z91.02 Food additives allergy status; Z91.09 Other allergy status, other than to drugs and biological substances; Z79.51 Long term (current) use of inhaled steroids; Z79.899 Other long term (current) drug therapy; Z86.69 Personal history of other diseases of the nervous system and sense organs; Z86.2 Personal history of diseases of the blood and blood-forming organs and certain disorders involving the immune mechanism; Z98.84 Bariatric surgery status; Z96.22 Myringotomy tube(s) status; Z86.79 Personal history of other diseases of the circulatory system; Z99.89 Dependence on other enabling machines and devices
CPT/HCPCS: 99283

== ENCOUNTER 2018-03-23 16:56 | Emergency (ER) | payer MEDICARE ==
[2018-03-23 17:08] VITALS: TEMP 98.6
--- NOTE | 2018-03-23 17:43 | ED ---
General Adult HPI - General Chief complaint: Recheck/Abnormal Lab/Rx Stated complaint: Shingles Time Seen by Provider: 03/23/18 17:21 Source: patient, RN notes reviewed, old records reviewed Mode of arrival: ambulatory Limitations: no limitations - History of Present Illness Initial comments: 47-year-old female presents for evaluation of increased pain in her right-sided scalp. Patient was diagnosed with shingles, placed on Valtrex, Keflex, and Motrin. She's had increased pain in the area of her rash. She has noted some drainage from several lesions. Denies fever or chills. Denies constitutional symptoms. No abdominal pain, vomiting or diarrhea. Denies vision changes, denies any rash to her face. Rash is isolated to the right parietal scalp. - Related Data Home Medications Medication Instructions Recorded Confirmed Gabapentin 800 mg PO TID 03/30/15 03/23/18 Albuterol Inhaler [Ventolin Hfa 2 puff INHALATION RT-Q6H PRN 11/28/15 03/23/18 Inhaler] Cyclobenzaprine [Flexeril] 10 mg PO BID 08/05/16 03/23/18 Budesonide/Formoterol Fumarate 2 puff INHALATION RT-BID 01/22/18 03/23/18 [Symbicort 80-4.5 Mcg Inhaler] Ferrous Sulfate [Feosol] 325 mg PO TID 01/22/18 03/23/18 Furosemide [Lasix] 20 mg PO DAILY 01/22/18 03/23/18 Lisinopril [Zestril] 10 mg PO DAILY 01/22/18 03/23/18 Metoclopramide HCl [Reglan] 5 mg PO DAILY PRN 01/22/18 03/23/18 Metoprolol Succinate [Toprol XL] 50 mg PO DAILY 01/22/18 03/23/18 Nitroglycerin Sl Tabs [Nitrostat] 0.4 mg PO Q5M PRN 01/22/18 03/23/18 Ranitidine HCl [Zantac] 150 mg PO BID 01/22/18 03/23/18 SUMAtriptan SUCCINATE [Imitrex] 50 mg PO ONCE PRN 01/22/18 03/23/18 Vit B Complx C/Folic Acid/Zinc 1 tab PO DAILY 03/04/18 03/23/18 [Renaplex Tablet] Zinc 50 mg PO DAILY 03/04/18 03/23/18 rOPINIRole HCL [Requip] 2 mg PO TID 03/21/18 03/23/18 Cholecalciferol (Vitamin D3) 10,000 unit PO DAILY 03/23/18 03/23/18 [Vitamin D3] Magnesium Oxide 400 mg PO DAILY 03/23/18 03/23/18 Previous Rx's Medication Instructions Recorded Cephalexin [Keflex] 500 mg PO Q6HR #40 cap 03/21/18 Ibuprofen [Motrin] 600 mg PO Q8HR PRN #30 tab 03/21/18 valACYclovir HCL [Valtrex] 1,000 mg PO Q8HR #30 tab 03/21/18 Clindamycin [Cleocin] 450 mg PO Q6H #40 capsule 03/23/18 traMADol HCl [Ultram] 50 mg PO Q6HR PRN 3 Days #20 tab 03/23/18 Allergies Allergy/AdvReac Type Severity Reaction Status Date / Time Sulfa (Sulfonamide Allergy Severe Anaphylaxis Verified 03/23/18 17:27 Antibiotics) adhesive tape Allergy BLISTERS Verified 03/23/18 17:27 amoxicillin [From Augmentin] Allergy Rash/Hives Verified 03/23/18 17:27 clavulanic acid Allergy Rash/Hives Verified 03/23/18 17:27 [From Augmentin] codeine Allergy ABDOMINAL Verified 03/23/18 17:27 PAIN, MIGRAINE HEADACHE morphine Allergy Itching Verified 03/23/18 17:27 Penicillins Allergy Rash/Hives Verified 03/23/18 17:27 adhesive AdvReac Itching Verified 03/23/18 17:27 artificial sweetners Allergy Nausea, Uncoded 03/23/18 17:08 MIGRAINE HEADACHE Review of Systems ROS Statement: Those systems with pertinent positive or pertinent negative responses have been documented in the HPI. ROS Other: All systems not noted in ROS Statement are negative. Past Medical History Past Medical History: Asthma, Blood Disorder, Chest Pain / Angina, COPD, Diabetes Mellitus, Fibromyalgia, GERD/Reflux, Hearing Disorder / Deafness, Hyperlipidemia, Hypertension, Liver Disease, Mitral Valve Prolapse (MVP), Musculoskeletal Disorder, Osteoarthritis (OA), Pneumonia, Respiratory Disorder, Sleep Apnea/CPAP/BIPAP Additional Past Medical History / Comment(s): 1218 pt wants flu vaccine while here. MIGRAINES, DEGENERATIVE DISC DISEASE, FATTY LIVER, LEIDEN FACTOR 5, OCCASIONAL SWELLING IN LOWER EXT.NEUROPATHY, RLS, diabetes is in remission since surgery, chronic back pain, PATIENT HAS BEEN OFF MEDS FOR DIABETES SINCE BARIATRIC SURGERY History of Any Multi-Drug Resistant Organisms: None Reported Past Surgical History: Adenoidectomy, Appendectomy, Bariatric Surgery, Bowel Resection, Breast Surgery, Section, Cholecystectomy, Ear Surgery, Heart Catheterization, Hernia Repair, Orthopedic Surgery, Tonsillectomy Additional Past Surgical History / Comment(s): ARTHROSCOPY RT KNEE X3, RT BREAST BX-NEG, (13) MYRINGOTOMYS. laparoscopic danielle-en-y with lysis of adhesions 2013; Surgical wound debridement x3 ; SX TO REMOVED SCAR TISSUE FROM PREVIOUS ABD SX;EGD ; LAP EXAM- APPY SMALL BOWEL OBSTRUCTION LYSIS OFF ADHESIONS , 3 hernia repairs, 3 bowel resection, 07/2016 colon resection Past Anesthesia/Blood Transfusion Reactions: No Reported Reaction Additional Past Anesthesia/Blood Transfusion Reaction / Comment(s): SEVERE HEADACHE AFTER LAST SCOPE, clausterphobia Past Psychological History: Anxiety, Bipolar, Depression, PTSD Smoking Status: Former smoker Past Alcohol Use History: None Reported Past Drug Use History: None Reported - Past Family History Mother Family Medical History: Deep Vein Thrombosis (DVT), Hypertension, Pulmonary Embolus, Thyroid Disorder Additional Family Medical History / Comment(s): FACTOR 5 LEIDEN, MVP Father Family Medical History: Diabetes Mellitus, Hypertension, Myocardial Infarction ( [place]) Additional Family Medical History / Comment(s): AGE 59 [place] General Exam Limitations: no limitations General appearance: alert, in no apparent distress Head exam: Present: atraumatic, normocephalic, other (Scalp examination reveals 31 cm lesions with crusting, and further draining purulent material, there is a right occipital lymphadenopathy) Eye exam: Present: normal appearance ENT exam: Present: normal exam Neck exam: Present: normal inspection, lymphadenopathy (Right occipital lymphadenopathy). Absent: tenderness, meningismus Respiratory exam: Present: normal lung sounds bilaterally, respiratory distress Cardiovascular Exam: Present: regular rate, normal rhythm GI/Abdominal exam: Present: soft. Absent: distended, tenderness, guarding Course Vital Signs 03/23/18 17:06 Temperature 98.6 F Pulse Rate 77 Respiratory 18 Rate Blood Pressure 188/90 O2 Sat by Pulse 100 Oximetry Medical Decision Making - Medical Decision Making 47-year-old female with worsening pain after diagnosis of shingles. Exam reveals some crusting lesions on the right parietal scalp, there is some drainage of purulent material from these lesions, there is concern for secondary infection. There is right occipital lymphadenopathy. Remainder of exam is unremarkable. Patient is otherwise well-appearing. She will be discharged with clindamycin to cover MRSA, discontinue Keflex. Continue Valtrex. Add Tylenol for pain. Disposition Clinical Impression: Herpes zoster, Scalp abscess Disposition: HOME SELF-CARE Condition: Good Instructions (If sedation given, give patient instructions): Abscess (ED), Shingles (ED) Prescriptions: Clindamycin [Cleocin] 450 mg PO Q6H #40 capsule traMADol HCl [Ultram] 50 mg PO Q6HR PRN 3 Days #20 tab PRN Reason: Pain Is patient prescribed a controlled substance at d/c from ED?: No Referrals: None,Stated [Primary Care Provider] - 1-2 days Sierra Kong MD [STAFF PHYSICIAN] - 1-2 days Time of Disposition: 17:41
[2018-03-23 17:54] VITALS: BP 155/85; PULSE 74; RESP 16
== END 2018-03-23 17:53 | disposition home or self-care (01) ==
LOC: EC 16:56
DX: L02.811 Cutaneous abscess of head [any part, except face] (principal); B02.9 Zoster without complications; R59.0 Localized enlarged lymph nodes; J44.9 Chronic obstructive pulmonary disease, unspecified; G47.30 Sleep apnea, unspecified; F41.9 Anxiety disorder, unspecified; M79.7 Fibromyalgia; H91.90 Unspecified hearing loss, unspecified ear; G89.29 Other chronic pain; K21.9 Gastro-esophageal reflux disease without esophagitis; I10 Essential (primary) hypertension; G25.81 Restless legs syndrome; G62.9 Polyneuropathy, unspecified; Z87.891 Personal history of nicotine dependence; Z88.0 Allergy status to penicillin; Z88.2 Allergy status to sulfonamides; Z88.5 Allergy status to narcotic agent; Z91.02 Food additives allergy status; Z91.09 Other allergy status, other than to drugs and biological substances; Z79.51 Long term (current) use of inhaled steroids; Z79.899 Other long term (current) drug therapy; Z98.84 Bariatric surgery status; Z99.89 Dependence on other enabling machines and devices; Z96.22 Myringotomy tube(s) status; Z86.2 Personal history of diseases of the blood and blood-forming organs and certain disorders involving the immune mechanism
CPT/HCPCS: 99283

== ENCOUNTER 2018-04-02 17:36 | Emergency (ER) | payer MEDICARE ==
[2018-04-02] MEDS ORDERED: ONDANSETRON 4 MG/2 ML VIAL IVP STA (18:15)
[2018-04-02] MEDS ORDERED: HYDROmorphone 0.5 MG/0.5 ML SYRINGE IVP STA (18:15)
[2018-04-02] MEDS ORDERED: SODIUM CHLORIDE 0.9% 1,000 ML IV STA (18:15)
[2018-04-02] MEDS ORDERED: MAG HYDROX/AL HYDROX/SIMETH 30 ML, HYOSCYAMINE ELIXIR 10 ML, CIMETIDINE HCL 300 MG, LID... PO STA ×4 (18:16)
--- NOTE | 2018-04-02 18:27 | ED ---
Abdominal Pain HPI - General Chief Complaint: Abdominal Pain Stated Complaint: Throat pain Time Seen by Provider: 04/02/18 18:06 Source: patient, RN notes reviewed Mode of arrival: ambulatory Limitations: no limitations - History of Present Illness Initial Comments: 47-year-old female presents emergency Department chief complaint of pain from her throat to her upper abdomen. Patient states it's sharp burning type pain. Patient states it makes it so painful to swallow. Patient has no difficulty other than being very painful. Patient denies fever, chills. Denies headache, head injury, chest pain or shortness of breath. Patient does state that she's had prior gastric bypass by Dr. Gabriel for years ago with multiple, occasions and resections. Patient states that she's having trouble taking her medications. Patient has not contacted her surgeon. Denies any diarrhea constipation. - Related Data Home Medications Medication Instructions Recorded Confirmed Gabapentin 800 mg PO TID 03/30/15 04/02/18 Albuterol Inhaler [Ventolin Hfa 2 puff INHALATION RT-Q6H PRN 11/28/15 04/02/18 Inhaler] Cyclobenzaprine [Flexeril] 10 mg PO BID 08/05/16 04/02/18 Budesonide/Formoterol Fumarate 2 puff INHALATION RT-BID 01/22/18 04/02/18 [Symbicort 80-4.5 Mcg Inhaler] Ferrous Sulfate [Feosol] 325 mg PO TID 01/22/18 04/02/18 Furosemide [Lasix] 20 mg PO DAILY 01/22/18 04/02/18 Lisinopril [Zestril] 10 mg PO DAILY 01/22/18 04/02/18 Metoclopramide HCl [Reglan] 5 mg PO DAILY PRN 01/22/18 04/02/18 Metoprolol Succinate [Toprol XL] 50 mg PO DAILY 01/22/18 04/02/18 Nitroglycerin Sl Tabs [Nitrostat] 0.4 mg PO Q5M PRN 01/22/18 04/02/18 Ranitidine HCl [Zantac] 150 mg PO BID 01/22/18 04/02/18 SUMAtriptan SUCCINATE [Imitrex] 50 mg PO ONCE PRN 01/22/18 04/02/18 Vit B Complx C/Folic Acid/Zinc 1 tab PO DAILY 03/04/18 04/02/18 [Renaplex Tablet] Zinc 50 mg PO DAILY 03/04/18 04/02/18 rOPINIRole HCL [Requip] 2 mg PO TID 03/21/18 04/02/18 Cholecalciferol (Vitamin D3) 10,000 unit PO DAILY 03/23/18 04/02/18 [Vitamin D3] Magnesium Oxide 400 mg PO DAILY 03/23/18 04/02/18 Previous Rx's Medication Instructions Recorded Ibuprofen [Motrin] 600 mg PO Q8HR PRN #30 tab 03/21/18 traMADol HCl [Ultram] 50 mg PO Q6HR PRN 3 Days #20 tab 03/23/18 Omeprazole 40 mg PO DAILY #14 capsule. 04/02/18 Ondansetron Odt [Zofran Odt] 4 mg PO Q8HR PRN #10 tab 04/02/18 Allergies Allergy/AdvReac Type Severity Reaction Status Date / Time Sulfa (Sulfonamide Allergy Severe Anaphylaxis Verified 04/02/18 18:23 Antibiotics) adhesive tape Allergy BLISTERS Verified 04/02/18 18:23 amoxicillin [From Augmentin] Allergy Rash/Hives Verified 04/02/18 18:23 clavulanic acid Allergy Rash/Hives Verified 04/02/18 18:23 [From Augmentin] codeine Allergy ABDOMINAL Verified 04/02/18 18:23 PAIN, MIGRAINE HEADACHE morphine Allergy Itching Verified 04/02/18 18:23 Penicillins Allergy Rash/Hives Verified 04/02/18 18:23 adhesive AdvReac Itching Verified 04/02/18 18:23 artificial sweetners Allergy Nausea, Uncoded 04/02/18 17:39 MIGRAINE HEADACHE Review of Systems ROS Statement: Those systems with pertinent positive or pertinent negative responses have been documented in the HPI. ROS Other: All systems not noted in ROS Statement are negative. Past Medical History Past Medical History: Asthma, Blood Disorder, Chest Pain / Angina, COPD, Diabetes Mellitus, Fibromyalgia, GERD/Reflux, Hearing Disorder / Deafness, Hyperlipidemia, Hypertension, Liver Disease, Mitral Valve Prolapse (MVP), Musculoskeletal Disorder, Osteoarthritis (OA), Pneumonia, Respiratory Disorder, Sleep Apnea/CPAP/BIPAP Additional Past Medical History / Comment(s): 12-5-18 pt wants flu vaccine while here. MIGRAINES, DEGENERATIVE DISC DISEASE, FATTY LIVER, LEIDEN FACTOR 5, OCCASIONAL SWELLING IN LOWER EXT.NEUROPATHY, RLS, diabetes is in remission since surgery, chronic back pain, PATIENT HAS BEEN OFF MEDS FOR DIABETES SINCE BARIATRIC SURGERY History of Any Multi-Drug Resistant Organisms: None Reported Past Surgical History: Adenoidectomy, Appendectomy, Bariatric Surgery, Bowel Resection, Breast Surgery, Section, Cholecystectomy, Ear Surgery, Heart Catheterization, Hernia Repair, Orthopedic Surgery, Tonsillectomy Additional Past Surgical History / Comment(s): ARTHROSCOPY RT KNEE X3, RT BREAST BX-NEG, (13) MYRINGOTOMYS. laparoscopic danielle-en-y with lysis of adhesions 2013; Surgical wound debridement x3 ; SX TO REMOVED SCAR TISSUE FROM PREVIOUS ABD SX;EGD ; LAP EXAM- APPY SMALL BOWEL OBSTRUCTION LYSIS OFF ADHESIONS , 3 hernia repairs, 3 bowel resection, 07/2016 colon resection Past Anesthesia/Blood Transfusion Reactions: No Reported Reaction Additional Past Anesthesia/Blood Transfusion Reaction / Comment(s): SEVERE HEADACHE AFTER LAST SCOPE, clausterphobia Past Psychological History: Anxiety, Bipolar, Depression, PTSD Smoking Status: Former smoker Past Alcohol Use History: None Reported Past Drug Use History: None Reported - Past Family History Mother Family Medical History: Deep Vein Thrombosis (DVT), Hypertension, Pulmonary Embolus, Thyroid Disorder Additional Family Medical History / Comment(s): FACTOR 5 LEIDEN, MVP Father Family Medical History: Diabetes Mellitus, Hypertension, Myocardial Infarction ( [place]) Additional Family Medical History / Comment(s): AGE 59 [place] General Exam Limitations: no limitations General appearance: alert, in no apparent distress Head exam: Present: atraumatic, normocephalic, normal inspection Eye exam: Present: normal appearance, PERRL, EOMI. Absent: scleral icterus, conjunctival injection, periorbital swelling ENT exam: Present: normal exam, normal oropharynx, mucous membranes moist, TM's normal bilaterally Neck exam: Present: normal inspection, full ROM. Absent: tenderness, meningismus, lymphadenopathy Respiratory exam: Present: normal lung sounds bilaterally. Absent: respiratory distress, wheezes, rales, rhonchi, stridor Cardiovascular Exam: Present: regular rate, normal rhythm, normal heart sounds. Absent: systolic murmur, diastolic murmur, rubs, gallop, clicks GI/Abdominal exam: Present: soft, tenderness (Mild epigastric), normal bowel sounds. Absent: distended, guarding, rebound, rigid Back exam: Absent: CVA tenderness (R), CVA tenderness (L) Skin exam: Present: warm, dry, intact, normal color. Absent: rash Course Vital Signs 04/02/18 04/02/18 17:37 20:15 Temperature 98.1 F Pulse Rate 76 64 Respiratory 18 20 Rate Blood Pressure 170/81 181/91 O2 Sat by Pulse 98 96 Oximetry Medical Decision Making - Medical Decision Making 47 show female presented from it for sore throat, pain with swallowing in her esophagus. Patient workup including cardiac which is negative. Patient has no evidence of obstruction. Patient did have some improvement after GI cocktail. This may be related to underlying reflux and gastritis/esophagitis. Patient we given omeprazole advised to use [id number] Mylanta and follow-up with her surgeon tomorrow. Return parameters were discussed. - Lab Data Result diagrams: 04/02/18 19:42 04/02/18 19:42 Lab Results 04/02/18 04/02/18 04/02/18 Range/Units 19:42 19:42 19:42 WBC 8.1 (3.8-10.6) k/uL RBC 4.22 (3.80-5.40) m/uL Hgb 10.6 L (11.4-16.0) gm/dL Hct 32.3 L (34.0-46.0) % MCV 76.7 L (80.0-100.0) fL MCH 25.3 (25.0-35.0) pg MCHC 32.9 (31.0-37.0) g/dL RDW 15.0 (11.5-15.5) % Plt Count 307 (150-450) k/uL Neutrophils % 65 % Lymphocytes % 27 % Monocytes % 4 % Eosinophils % 1 % Basophils % 1 % Neutrophils # 5.3 (1.3-7.7) k/uL Lymphocytes # 2.2 (1.0-4.8) k/uL Monocytes # 0.4 (0-1.0) k/uL Eosinophils # 0.1 (0-0.7) k/uL Basophils # 0.1 (0-0.2) k/uL Sodium 139 (137-145) mmol/L Potassium 4.6 (3.5-5.1) mmol/L Chloride 104 (98-107) mmol/L Carbon Dioxide 28 (22-30) mmol/L Anion Gap 7 mmol/L BUN 11 (7-17) mg/dL Creatinine 0.46 L (0.52-1.04) mg/dL Est GFR (CKD-EPI)AfAm >90 (>60 ml/min/1.73 sqM) Est GFR (CKD-EPI)NonAf >90 (>60 ml/min/1.73 sqM) Glucose 127 H (74-99) mg/dL Calcium 9.4 (8.4-10.2) mg/dL Total Bilirubin 0.8 (0.2-1.3) mg/dL AST 25 (14-36) U/L ALT 34 (9-52) U/L Alkaline Phosphatase 118 (38-126) U/L Troponin I <0.012 (0.000-0.034) ng/mL Total Protein 7.3 (6.3-8.2) g/dL Albumin 4.3 (3.5-5.0) g/dL Amylase 41 (30-110) U/L Lipase 38 (23-300) U/L Urine Color Urine Appearance (Clear) Urine pH (5.0-8.0) Ur Specific [place] (1.001-1.035) Urine Protein (Negative) Urine Glucose (UA) (Negative) Urine Ketones (Negative) Urine Blood (Negative) Urine Nitrite (Negative) Urine Bilirubin (Negative) Urine Urobilinogen (<2.0) mg/dL Ur Leukocyte Esterase (Negative) Urine RBC (0-5) /hpf Urine WBC (0-5) /hpf Ur Squamous Epith Cells (0-4) /hpf Urine Bacteria (None) /hpf Hyaline Casts (0-2) /lpf Urine Mucus (None) /hpf 04/02/18 Range/Units 19:42 WBC (3.8-10.6) k/uL RBC (3.80-5.40) m/uL Hgb (11.4-16.0) gm/dL Hct (34.0-46.0) % MCV (80.0-100.0) fL MCH (25.0-35.0) pg MCHC (31.0-37.0) g/dL RDW (11.5-15.5) % Plt Count (150-450) k/uL Neutrophils % % Lymphocytes % % Monocytes % % Eosinophils % % Basophils % % Neutrophils # (1.3-7.7) k/uL Lymphocytes # (1.0-4.8) k/uL Monocytes # (0-1.0) k/uL Eosinophils # (0-0.7) k/uL Basophils # (0-0.2) k/uL Sodium (137-145) mmol/L Potassium (3.5-5.1) mmol/L Chloride (98-107) mmol/L Carbon Dioxide (22-30) mmol/L Anion Gap mmol/L BUN (7-17) mg/dL Creatinine (0.52-1.04) mg/dL Est GFR (CKD-EPI)AfAm (>60 ml/min/1.73 sqM) Est GFR (CKD-EPI)NonAf (>60 ml/min/1.73 sqM) Glucose (74-99) mg/dL Calcium (8.4-10.2) mg/dL Total Bilirubin (0.2-1.3) mg/dL AST (14-36) U/L ALT (9-52) U/L Alkaline Phosphatase (38-126) U/L Troponin I (0.000-0.034) ng/mL Total Protein (6.3-8.2) g/dL Albumin (3.5-5.0) g/dL Amylase (30-110) U/L Lipase (23-300) U/L Urine Color Light Yellow Urine Appearance Cloudy H (Clear) Urine pH 6.0 (5.0-8.0) Ur Specific [place] 1.012 (1.001-1.035) Urine Protein Negative (Negative) Urine Glucose (UA) Negative (Negative) Urine Ketones Negative (Negative) Urine Blood Negative (Negative) Urine Nitrite Negative (Negative) Urine Bilirubin Negative (Negative) Urine Urobilinogen <2.0 (<2.0) mg/dL Ur Leukocyte Esterase Negative (Negative) Urine RBC <1 (0-5) /hpf Urine WBC <1 (0-5) /hpf Ur Squamous Epith Cells 8 H (0-4) /hpf Urine Bacteria Rare H (None) /hpf Hyaline Casts 1 (0-2) /lpf Urine Mucus Rare H (None) /hpf Disposition Clinical Impression: Esophagitis, Abdominal pain Disposition: HOME SELF-CARE Condition: Stable Instructions (If sedation given, give patient instructions): Esophagitis (ED) Additional Instructions: Please return to the Emergency Department if symptoms worsen or any other concerns. Prescriptions: Omeprazole 40 mg PO DAILY #14 capsule. Ondansetron Odt [Zofran Odt] 4 mg PO Q8HR PRN #10 tab PRN Reason: Nausea Is patient prescribed a controlled substance at d/c from ED?: No Referrals: Yarely Boothe MD [Primary Care Provider] - 1-2 days Time of Disposition: 21:36
[2018-04-02 20:28] LABS: ALT 34 U/L (9-52); AST 25 U/L (14-36); Albumin 4.3 g/dL (3.5-5.0); Alkaline Phosphatase 118 U/L (38-126); Amylase 41 U/L (30-110); Anion Gap 7 mmol/L; Blood Urea Nitrogen 11 mg/dL (7-17); Calcium 9.4 mg/dL (8.4-10.2); Carbon Dioxide 28 mmol/L (22-30); Chloride 104 mmol/L (98-107); Glucose 127 mg/dL (74-99); Lipase 38 U/L (23-300); Potassium 4.6 mmol/L (3.5-5.1); Sodium 139 mmol/L (137-145); Total Bilirubin 0.8 mg/dL (0.2-1.3); Total Protein 7.3 g/dL (6.3-8.2)
[2018-04-02 20:30] LABS: Appearance,Urine Cloudy (Clear); Bacteria,Urine Rare /hpf; Bilirubin,Urine Negative (Negative); Blood,Urine Negative (Negative); Color,Urine Light Yellow; Glucose,Urine (UA) Negative (Negative); Hyaline Casts,Urine 1 /lpf (0-2); Ketones,Urine Negative (Negative); Leukocyte Esterase,Urine Negative (Negative); Mucus,Urine Rare /hpf; Nitrite,Urine Negative (Negative); Protein,Urine Negative (Negative); RBC,Urine <1 /hpf (0-5); Specific Gravity,Urine 1.012 (1.001-1.035); Squamous Epithelial Cell,Urine 8 /hpf (0-4); Urobilinogen,Urine <2.0 mg/dL (<2.0); WBC,Urine <1 /hpf (0-5)
[2018-04-02 20:33] VITALS: RESP 20
[2018-04-02 21:03] LABS: Basophils # (A) 0.1 k/uL (0-0.2); Basophils % (A) 1 %; Eosinophils # (A) 0.1 k/uL (0-0.7); Eosinophils % (A) 1 %; HCT 32.3 % (34.0-46.0); HGB 10.6 gm/dL (11.4-16.0); Lymphocytes # (A) 2.2 k/uL (1.0-4.8); Lymphocytes % (A) 27 %; MCH 25.3 pg (25.0-35.0); MCHC 32.9 g/dL (31.0-37.0); MCV 76.7 fL (80.0-100.0); Mean Platelet Volume 7.4; Monocytes # (A) 0.4 k/uL (0-1.0); Monocytes % (A) 4 %; Neutrophils # (A) 5.3 k/uL (1.3-7.7); Neutrophils % (A) 65 %; Platelet Count 307 k/uL (150-450); RBC 4.22 m/uL (3.80-5.40); WBC 8.1 k/uL (3.8-10.6)
--- NOTE | 2018-04-02 21:03 | XR ---
EXAMINATION TYPE: XR chest 1V DATE OF EXAM: 04/02/2018 COMPARISON: 11/28/2015 HISTORY: Chest pain TECHNIQUE: Single frontal view of the chest is obtained. FINDINGS: Heart and mediastinum are normal. Lungs are clear. Diaphragm is normal. Bony thorax appear s normal. Pulmonary vascularity is normal. IMPRESSION: Normal chest. No change.
--- NOTE | 2018-04-02 21:04 | XR ---
EXAMINATION TYPE: XR KUB DATE OF EXAM: 04/02/2018 COMPARISON: NONE HISTORY: Abdominal pain TECHNIQUE: 2 views FINDINGS: There is no sign of intestinal obstruction or pneumoperitoneum. Fecal pattern is normal. Th ere are clips from cholecystectomy. There are no pathologic calcifications over the kidneys. Lung bas es are clear. There is no sign of a mass. IMPRESSION: Nonacute abdomen.
[2018-04-02] MEDS ORDERED: METOCLOPRAMIDE 5 MG/ML 2 ML VIAL IVP STA (21:33)
[2018-04-02] MEDS ORDERED: HYDROmorphone 1 MG/ML 1 ML SYRINGE IVP STA (21:33)
[2018-04-02 22:02] VITALS: BP 180/90; PULSE 78; TEMP 98.2
== END 2018-04-02 21:58 | disposition home or self-care (01) ==
LOC: EC 17:36
DX: K20.9 Esophagitis, unspecified (principal); R10.13 Epigastric pain; R07.0 Pain in throat; J44.9 Chronic obstructive pulmonary disease, unspecified; M79.7 Fibromyalgia; K21.9 Gastro-esophageal reflux disease without esophagitis; H91.90 Unspecified hearing loss, unspecified ear; E78.5 Hyperlipidemia, unspecified; I10 Essential (primary) hypertension; M19.90 Unspecified osteoarthritis, unspecified site; G25.81 Restless legs syndrome; G62.9 Polyneuropathy, unspecified; F31.9 Bipolar disorder, unspecified; F43.10 Post-traumatic stress disorder, unspecified; F41.9 Anxiety disorder, unspecified; Z87.891 Personal history of nicotine dependence; Z79.51 Long term (current) use of inhaled steroids; Z79.899 Other long term (current) drug therapy; Z88.0 Allergy status to penicillin; Z88.2 Allergy status to sulfonamides; Z88.1 Allergy status to other antibiotic agents; Z88.5 Allergy status to narcotic agent; Z91.048 Other nonmedicinal substance allergy status; Z91.018 Allergy to other foods; Z90.49 Acquired absence of other specified parts of digestive tract; Z95.818 Presence of other cardiac implants and grafts; Z98.84 Bariatric surgery status
CPT/HCPCS: 36415; 93005; 80053; 82150; 83690; 84484; 85025; 81001; 71045; 74018; 99284; 96374; 96375 ×2; 96376; 96361; J2765; J2405; J1170 ×2

== ENCOUNTER 2018-04-23 14:09 | Observation (INO) | payer MEDICARE, OTHER ==
[2018-04-23] MEDS ORDERED: METOCLOPRAMIDE 5 MG/ML 2 ML VIAL IVP STA (15:53)
[2018-04-23] MEDS ORDERED: SODIUM CHLORIDE 0.9% 1,000 ML IV STA (15:53)
[2018-04-23] MEDS ORDERED: diphenhydrAMINE 50 MG/ML 1 ML VIAL IVP STA (15:53)
[2018-04-23] MEDS ORDERED: HYDROmorphone 0.5 MG/0.5 ML SYRINGE IVP STA (16:15)
[2018-04-23 16:19] LABS: Basophils # (A) 0.1 k/uL (0-0.2); Basophils % (A) 1 %; Eosinophils # (A) 0.1 k/uL (0-0.7); Eosinophils % (A) 2 %; HCT 33.5 % (34.0-46.0); Lymphocytes # (A) 1.9 k/uL (1.0-4.8); Lymphocytes % (A) 22 %; MCH 25.5 pg (25.0-35.0); MCHC 32.9 g/dL (31.0-37.0); MCV 77.4 fL (80.0-100.0); Mean Platelet Volume 7.3; Microcytosis Slight; Monocytes # (A) 0.3 k/uL (0-1.0); Monocytes % (A) 4 %; Neutrophils % (A) 70 %; Platelet Count 287 k/uL (150-450); RBC 4.33 m/uL (3.80-5.40); RDW 15.8 % (11.5-15.5); WBC 8.6 k/uL (3.8-10.6)
[2018-04-23 16:26] LABS: ALT 27 U/L (9-52); AST 38 U/L (14-36); Albumin 4.2 g/dL (3.5-5.0); Alkaline Phosphatase 104 U/L (38-126); Anion Gap 7 mmol/L; Blood Urea Nitrogen 10 mg/dL (7-17); Calcium 9.4 mg/dL (8.4-10.2); Carbon Dioxide 29 mmol/L (22-30); Chloride 101 mmol/L (98-107); Glucose 119 mg/dL (74-99); Lipase 43 U/L (23-300); Sodium 137 mmol/L (137-145); Total Bilirubin 1.1 mg/dL (0.2-1.3); Total Protein 7.6 g/dL (6.3-8.2)
[2018-04-23 16:27] LABS: Potassium 4.9 mmol/L (3.5-5.1)
[2018-04-23 16:28] LABS: Appearance,Urine Clear (Clear); Bilirubin,Urine Negative (Negative); Blood,Urine Moderate (Negative); Color,Urine Light Yellow; Glucose,Urine (UA) Negative (Negative); Hyaline Casts,Urine 1 /lpf (0-2); Ketones,Urine Negative (Negative); Leukocyte Esterase,Urine Small (Negative); Mucus,Urine Rare /hpf; Nitrite,Urine Negative (Negative); PH, Urine 6.5 (5.0-8.0); Protein,Urine Negative (Negative); RBC,Urine 163 /hpf (0-5); Specific Gravity,Urine 1.006 (1.001-1.035); Squamous Epithelial Cell,Urine 8 /hpf (0-4); Urobilinogen,Urine <2.0 mg/dL (<2.0); WBC,Urine 6 /hpf (0-5)
[2018-04-23 16:42] LABS: INR 0.9 (<1.2); Prothrombin Time 9.6 sec (9.0-12.0)
[2018-04-23 16:49] LABS: Partial Thromboplastin Time 19.8 sec (22.0-30.0)
--- NOTE | 2018-04-23 17:12 | CT ---
EXAMINATION TYPE: CT abdomen pelvis w con DATE OF EXAM: 04/23/2018 COMPARISON: 01/22/2018 HISTORY: Left sided pain with nausea CT DLP: 1758.8 mGycm Automated exposure control for dose reduction was used. TECHNIQUE: Helical acquisition of images was performed from the lung bases through the pelvis. CONTRAST: Performed without Oral Contrast and with IV Contrast, patient injected with 100 mL of Isovue 300. FINDINGS: Lung bases are clear. There is no pleural effusion. There are clips from bariatric surgery. There is no pericardial effusion. Liver shows no focal defect. There are clips from cholecystectomy. Spleen appears normal. There is no evidence of a pancreatic mass. There is no adrenal mass. Kidneys show satisfactory contrast opacific ation. There is no hydronephrosis. There is no evidence of a renal calculus. Ureters are not dilated. There is no retroperitoneal adenopathy. Bladder distends smoothly. Uterus is tilted to the right side. There is no free fluid in the pelvis. Appendix is not definitely seen. There is no sign of a thickened appendix. There is no mesenteric jeancarlos ma. There is no ascites. There is no sign of free air. There is no inguinal hernia. I see no bony humaira tructive process. Lumbar spine is intact. IMPRESSION: PREVIOUS SURGERY. NO SIGN OF ACUTE ABDOMEN AND PELVIS. NO ADVERSE CHANGE COMPARED TO OLD EXAM.
[2018-04-23] MEDS ORDERED: HYDROmorphone 0.5 MG/0.5 ML SYRINGE IVP PRN (18:02)
[2018-04-23] MEDS ORDERED: ACETAMINOPHEN TAB 325 MG TAB PO PRN (18:02)
[2018-04-23] MEDS ORDERED: NALOXONE 0.4 MG/ML 1 ML VIAL IV PRN (18:02)
--- NOTE | 2018-04-23 18:02 | ED ---
Abdominal Pain HPI - General Chief Complaint: Abdominal Pain Stated Complaint: Severe abd pain Time Seen by Provider: 04/23/18 14:53 Source: patient, family, RN notes reviewed, old records reviewed Mode of arrival: ambulatory Limitations: no limitations - History of Present Illness Initial Comments: Patient is a 47-year-old female with past medical history of gastric bypass by Dr. Gabriel who presents to the emergency Department with abdominal pain. She states that she has had multiple abdominal surgeries over the past 5 years. She originally had a Barb-en-Y gastric bypass performed with several small bowel resections following. She has chronic abdominal pain which has been persistent for the past 2 months which became worse this past week. She had an appointment scheduled with Dr. Gabriel today. She went into the office to see her and Dr. Gabriel directed her to the emergency department to be admitted underneath her care. The pain is located in the left upper quadrant without radiation. The patient has associated nausea. She's had anorexia and has not eaten since last night. She denies vomiting. No report of any fevers or chills. She admits to chronic stooling issues. She alternates between diarrhea and constipation. Currently states that she is having diarrhea and has gone multiple times today. Denies melanotic stools or hematochezia. No recent travel or antibiotic use. She denies any urinary changes to include hematuria, dysuria or difficulty voiding. No report of any chest pain or difficulty breathing. Denies ripping or tearing sensation to her back. No pain into her lower extremities. No unilateral numbness or weakness - Related Data Home Medications Medication Instructions Recorded Confirmed Gabapentin 800 mg PO TID 03/30/15 04/23/18 Albuterol Inhaler [Ventolin Hfa 2 puff INHALATION RT-Q6H PRN 11/28/15 04/23/18 Inhaler] Cyclobenzaprine [Flexeril] 10 mg PO BID 08/05/16 04/23/18 Budesonide/Formoterol Fumarate 2 puff INHALATION RT-BID 01/22/18 04/23/18 [Symbicort 80-4.5 Mcg Inhaler] Ferrous Sulfate [Feosol] 325 mg PO TID 01/22/18 04/23/18 Furosemide [Lasix] 20 mg PO DAILY 01/22/18 04/23/18 Lisinopril [Zestril] 10 mg PO DAILY 01/22/18 04/23/18 Metoclopramide HCl [Reglan] 5 mg PO DAILY PRN 01/22/18 04/23/18 Metoprolol Succinate [Toprol XL] 50 mg PO DAILY 01/22/18 04/23/18 Nitroglycerin Sl Tabs [Nitrostat] 0.4 mg PO Q5M PRN 01/22/18 04/23/18 SUMAtriptan SUCCINATE [Imitrex] 50 mg PO ONCE PRN 01/22/18 04/23/18 Vit B Complx C/Folic Acid/Zinc 1 tab PO DAILY 03/04/18 04/23/18 [Renaplex Tablet] Zinc 50 mg PO DAILY 03/04/18 04/23/18 rOPINIRole HCL [Requip] 2 mg PO TID 03/21/18 04/23/18 Cholecalciferol (Vitamin D3) 10,000 unit PO DAILY 03/23/18 04/23/18 [Vitamin D3] Magnesium Oxide 400 mg PO DAILY 03/23/18 04/23/18 traMADol HCl [Ultram] 50 mg PO DAILY PRN 04/23/18 04/23/18 Previous Rx's Medication Instructions Recorded Ibuprofen [Motrin] 600 mg PO Q8HR PRN #30 tab 03/21/18 Omeprazole 40 mg PO DAILY #14 capsule. 04/02/18 Ondansetron Odt [Zofran Odt] 4 mg PO Q8HR PRN #10 tab 04/02/18 Allergies Allergy/AdvReac Type Severity Reaction Status Date / Time Sulfa (Sulfonamide Allergy Severe Anaphylaxis Verified 04/23/18 15:23 Antibiotics) adhesive tape Allergy BLISTERS Verified 04/23/18 15:23 amoxicillin [From Augmentin] Allergy Rash/Hives Verified 04/23/18 15:23 clavulanic acid Allergy Rash/Hives Verified 04/23/18 15:23 [From Augmentin] codeine Allergy ABDOMINAL Verified 04/23/18 15:23 PAIN, MIGRAINE HEADACHE morphine Allergy Itching Verified 04/23/18 15:23 Penicillins Allergy Rash/Hives Verified 04/23/18 15:23 adhesive AdvReac Itching Verified 04/23/18 15:23 artificial sweetners Allergy Nausea, Uncoded 04/23/18 14:37 MIGRAINE HEADACHE Review of Systems ROS Statement: Those systems with pertinent positive or pertinent negative responses have been documented in the HPI. ROS Other: All systems not noted in ROS Statement are negative. Past Medical History Past Medical History: Asthma, Blood Disorder, Chest Pain / Angina, COPD, Diabetes Mellitus, Fibromyalgia, GERD/Reflux, Hearing Disorder / Deafness, Hyperlipidemia, Hypertension, Liver Disease, Mitral Valve Prolapse (MVP), Musculoskeletal Disorder, Osteoarthritis (OA), Pneumonia, Respiratory Disorder, Sleep Apnea/CPAP/BIPAP Additional Past Medical History / Comment(s): 01-22-18 pt wants flu vaccine while here. MIGRAINES, DEGENERATIVE DISC DISEASE, FATTY LIVER, LEIDEN FACTOR 5, OCCASIONAL SWELLING IN LOWER EXT.NEUROPATHY, RLS, diabetes is in remission since surgery, chronic back pain, PATIENT HAS BEEN OFF MEDS FOR DIABETES SINCE BARIATRIC SURGERY History of Any Multi-Drug Resistant Organisms: None Reported Past Surgical History: Adenoidectomy, Appendectomy, Bariatric Surgery, Bowel Resection, Breast Surgery, Section, Cholecystectomy, Ear Surgery, Heart Catheterization, Hernia Repair, Orthopedic Surgery, Tonsillectomy Additional Past Surgical History / Comment(s): ARTHROSCOPY RT KNEE X3, RT BREAST BX-NEG, (13) MYRINGOTOMYS. laparoscopic barb-en-y with lysis of adhesions 2013; Surgical wound debridement x3 ; SX TO REMOVED SCAR TISSUE FROM PREVIOUS ABD SX;EGD ; LAP EXAM- APPY SMALL BOWEL OBSTRUCTION LYSIS OFF ADHESIONS , 3 hernia repairs, 3 bowel resection, 07/2016 colon resection Past Anesthesia/Blood Transfusion Reactions: No Reported Reaction Additional Past Anesthesia/Blood Transfusion Reaction / Comment(s): SEVERE HEADACHE AFTER LAST SCOPE, clausterphobia Past Psychological History: Anxiety, Bipolar, Depression, PTSD Smoking Status: Former smoker Past Alcohol Use History: None Reported Past Drug Use History: None Reported - Past Family History Mother Family Medical History: Deep Vein Thrombosis (DVT), Hypertension, Pulmonary Embolus, Thyroid Disorder Additional Family Medical History / Comment(s): FACTOR 5 LEIDEN, MVP Father Family Medical History: Diabetes Mellitus, Hypertension, Myocardial Infarction ( ID) Additional Family Medical History / Comment(s): AGE 59 ID General Exam Limitations: no limitations General appearance: alert, in no apparent distress Head exam: Present: normocephalic Eye exam: Present: normal appearance, PERRL. Absent: scleral icterus, conjunctival injection Pupils: Present: normal accommodation ENT exam: Present: normal exam, mucous membranes dry Neck exam: Present: normal inspection, full ROM. Absent: tenderness Respiratory exam: Present: normal lung sounds bilaterally. Absent: wheezes, rales, rhonchi Cardiovascular Exam: Present: regular rate, normal heart sounds GI/Abdominal exam: Present: soft, tenderness, normal bowel sounds, other ( Tenderness left upper quadrant. No palpable masses or organomegaly. no flank ecchymoses or periumbilical ecchymosis). Absent: distended, guarding, rebound, rigid Rectal exam: Present: deferred Extremities exam: Present: full ROM Back exam: Present: full ROM. Absent: tenderness Neurological exam: Present: alert, oriented X3 Psychiatric exam: Present: normal affect, normal mood Skin exam: Present: warm, dry, intact, normal color. Absent: rash Course Vital Signs 04/23/18 04/23/18 04/23/18 14:32 16:18 16:30 Temperature 98.7 F Pulse Rate 95 Respiratory 18 Rate Blood Pressure 152/89 185/99 O2 Sat by Pulse 97 96 97 Oximetry 04/23/18 04/23/18 04/23/18 17:00 17:25 17:30 Temperature Pulse Rate Respiratory Rate Blood Pressure 167/102 179/99 179/99 O2 Sat by Pulse 96 Oximetry 04/23/18 04/23/18 18:00 18:30 Temperature Pulse Rate Respiratory Rate Blood Pressure 164/84 178/97 O2 Sat by Pulse 97 Oximetry - Reevaluation(s) Reevaluation #1: The patient was reevaluated and her laboratory results were discussed with her. She received her pain medication approximately 10 minutes ago. She is starting to have some relief in her pain 04/23/18 16:40 Medical Decision Making - Medical Decision Making The patient was seen by myself. She was placed into room 11. She was placed on continuous pulse ox and cardiac monitoring. Twelve lead EKG was performed on the patient which demonstrated a normal sinus rhythm. We did obtain IV access. She was given 10 mg of Reglan IV, 25 mg of Benadryl IV and 1 mg of Dilaudid IV. She was also given a liter bolus of 0.9% normal saline. Laboratory studies were conducted. Patient provided a urine sample. She was sent for CT for abdomen and pelvis with IV contrast. Upon return results I did discuss them with the patient. I did reevaluate her. Abdominal exam continues to remain normal without peritoneal signs. I did discuss the diagnosis, differential diagnosis and treatment options. She presents with abdominal pain from Dr. Gabriel's office. Dr. Gabriel did recommend admission. I called and discussed the case with her. She was accepting of the patient's admission. Bridging orders were placed. The patient remained in stable condition when he transferred to the floor - Differential Diagnosis Abdominal pain, bowel obstruction, abdominal adhesions - Lab Data Result diagrams: 04/23/18 14:56 04/23/18 14:56 Lab Results 04/23/18 04/23/18 04/23/18 Range/Units 14:56 14:56 14:56 WBC 8.6 (3.8-10.6) k/uL RBC 4.33 (3.80-5.40) m/uL Hgb 11.0 L (11.4-16.0) gm/dL Hct 33.5 L (34.0-46.0) % MCV 77.4 L (80.0-100.0) fL MCH 25.5 (25.0-35.0) pg MCHC 32.9 (31.0-37.0) g/dL RDW 15.8 H (11.5-15.5) % Plt Count 287 (150-450) k/uL Neutrophils % 70 % Lymphocytes % 22 % Monocytes % 4 % Eosinophils % 2 % Basophils % 1 % Neutrophils # 6.0 (1.3-7.7) k/uL Lymphocytes # 1.9 (1.0-4.8) k/uL Monocytes # 0.3 (0-1.0) k/uL Eosinophils # 0.1 (0-0.7) k/uL Basophils # 0.1 (0-0.2) k/uL Microcytosis Slight PT 9.6 (9.0-12.0) sec INR 0.9 (<1.2) APTT 19.8 L (22.0-30.0) sec Sodium 137 (137-145) mmol/L Potassium 4.9 (3.5-5.1) mmol/L Chloride 101 (98-107) mmol/L Carbon Dioxide 29 (22-30) mmol/L Anion Gap 7 mmol/L BUN 10 (7-17) mg/dL Creatinine 0.41 L (0.52-1.04) mg/dL Est GFR (CKD-EPI)AfAm >90 (>60 ml/min/1.73 sqM) Est GFR (CKD-EPI)NonAf >90 (>60 ml/min/1.73 sqM) Glucose 119 H (74-99) mg/dL Plasma Lactic Acid Esteban (0.7-2.0) mmol/L Calcium 9.4 (8.4-10.2) mg/dL Total Bilirubin 1.1 (0.2-1.3) mg/dL AST 38 H (14-36) U/L ALT 27 (9-52) U/L Alkaline Phosphatase 104 (38-126) U/L Total Protein 7.6 (6.3-8.2) g/dL Albumin 4.2 (3.5-5.0) g/dL Lipase 43 (23-300) U/L Urine Color Urine Appearance (Clear) Urine pH (5.0-8.0) Ur Specific [place] (1.001-1.035) Urine Protein (Negative) Urine Glucose (UA) (Negative) Urine Ketones (Negative) Urine Blood (Negative) Urine Nitrite (Negative) Urine Bilirubin (Negative) Urine Urobilinogen (<2.0) mg/dL Ur Leukocyte Esterase (Negative) Urine RBC (0-5) /hpf Urine WBC (0-5) /hpf Ur Squamous Epith Cells (0-4) /hpf Hyaline Casts (0-2) /lpf Urine Mucus (None) /hpf Urine HCG, Qual (Not Detectd) 04/23/18 04/23/18 04/23/18 Range/Units 14:56 14:56 16:13 WBC (3.8-10.6) k/uL RBC (3.80-5.40) m/uL Hgb (11.4-16.0) gm/dL Hct (34.0-46.0) % MCV (80.0-100.0) fL MCH (25.0-35.0) pg MCHC (31.0-37.0) g/dL RDW (11.5-15.5) % Plt Count (150-450) k/uL Neutrophils % % Lymphocytes % % Monocytes % % Eosinophils % % Basophils % % Neutrophils # (1.3-7.7) k/uL Lymphocytes # (1.0-4.8) k/uL Monocytes # (0-1.0) k/uL Eosinophils # (0-0.7) k/uL Basophils # (0-0.2) k/uL Microcytosis PT (9.0-12.0) sec INR (<1.2) APTT (22.0-30.0) sec Sodium (137-145) mmol/L Potassium (3.5-5.1) mmol/L Chloride (98-107) mmol/L Carbon Dioxide (22-30) mmol/L Anion Gap mmol/L BUN (7-17) mg/dL Creatinine (0.52-1.04) mg/dL Est GFR (CKD-EPI)AfAm (>60 ml/min/1.73 sqM) Est GFR (CKD-EPI)NonAf (>60 ml/min/1.73 sqM) Glucose (74-99) mg/dL Plasma Lactic Acid Esteban 0.9 (0.7-2.0) mmol/L Calcium (8.4-10.2) mg/dL Total Bilirubin (0.2-1.3) mg/dL AST (14-36) U/L ALT (9-52) U/L Alkaline Phosphatase (38-126) U/L Total Protein (6.3-8.2) g/dL Albumin (3.5-5.0) g/dL Lipase (23-300) U/L Urine Color Light Yellow Urine Appearance Clear (Clear) Urine pH 6.5 (5.0-8.0) Ur Specific [place] 1.006 (1.001-1.035) Urine Protein Negative (Negative) Urine Glucose (UA) Negative (Negative) Urine Ketones Negative (Negative) Urine Blood Moderate H (Negative) Urine Nitrite Negative (Negative) Urine Bilirubin Negative (Negative) Urine Urobilinogen <2.0 (<2.0) mg/dL Ur Leukocyte Esterase Small H (Negative) Urine RBC 163 H (0-5) /hpf Urine WBC 6 H (0-5) /hpf Ur Squamous Epith Cells 8 H (0-4) /hpf Hyaline Casts 1 (0-2) /lpf Urine Mucus Rare H (None) /hpf Urine HCG, Qual Not Detected (Not Detectd) - EKG Data EKG shows normal: sinus rhythm Rate: normal When compared to previous EKG there are: no significant change Interpretation: no acute changes - Radiology Data Radiology results: report reviewed, image reviewed No acute intra-abdominal process Disposition Clinical Impression: Abdominal pain, Status post bariatric surgery Disposition: ADMITTED IP TO THIS [facility] Condition: Stable Is patient prescribed a controlled substance at d/c from ED?: No Decision Date: 04/23/18 Decision Time: 16:35
[2018-04-23] MEDS: SODIUM CHLORIDE 0.9% 1,000 ML IV SCH (18:45)
[2018-04-23] MEDS: PANTOPRAZOLE 40 MG/10 ML VIAL IV SCH (18:45)
[2018-04-23] MEDS: ONDANSETRON 4 MG/2 ML VIAL IVP PRN (19:29)
[2018-04-23] MEDS: HYDROmorphone 1 MG/ML 1 ML SYRINGE IVP PRN ×2 (20:31→23:43)
[2018-04-23] MEDS ORDERED: ALBUTEROL NEBULIZED 2.5 MG/3 ML INHALATION PRN (20:35)
[2018-04-23] MEDS ORDERED: SUMAtriptan SUCCINATE 50 MG TAB PO PRN (20:35)
[2018-04-23] MEDS ORDERED: hydrALAZINE HCL 20 MG/ML 1 ML VIAL IVP PRN (20:38)
[2018-04-23 20:52] VITALS: BMI 46.8
--- NOTE | 2018-04-23 20:52 | P.GSHP ---
History of Present Illness H&P Date: 04/23/18 CHIEF COMPLAINT: Abdominal pain HISTORY OF PRESENT ILLNESS: The patient is a 44-year-old female who comes in with moderate to severe left upper quadrant including left lower quadrant abdominal pain. She reports the pain started 2 weeks ago and is sharp pulling sensation. She reports abdominal gas bloat and inability to pass flatus. Its worse especially after eating and drinking foods. She has presented to the emergency room at least on 3 occasions in the past 3 weeks. She denies any alleviating factors. In the past, she has history of recurrent intra-abdominal adhesions. She had a recent upper endoscopy with balloon dilation in December 2017, 4 months ago which treated her epigastric abdominal pain. She has been seen by pain specialist for management of lumbar radiculopathy. She has also history of fibromyalgia including multiple sclerosis currently untreated fashion along her has a neurologist. Secondary to the severity of her abdominal pain and history of peritoneal adhesions, she has been admitted. PAST MEDICAL HISTORY: See list. PAST SURGICAL HISTORY: See list. MEDICATIONS: See list. ALLERGIES: See list. SOCIAL HISTORY: No illicit drug use FAMILY HISTORY: No reports of Crohn's disease or inflammatory bowel disease REVIEW OF ORGAN SYSTEMS: CONSTITUTIONAL: No fevers or chills. EYES: Denies any trouble with vision. No glasses. HEENT: No difficulties with hearing. No nosebleeds. No difficulty swallowing. RESPIRATORY: Denies pneumonia. Denies any troubles with breathing or dyspnea on exertion. CARDIOVASCULAR: Denies any chest pain, palpitations, or recent heart attacks. GASTROINTESTINAL: Has change in bowel habits and gas bloat. Past history of multiple abdominal surgeries. GENITOURINARY: Denies any blood in urine or increased urinary frequency. NEUROLOGICAL: Denies any numbness or tingling along the distal extremities. No seizure disorders or headaches. MUSCULOSKELETAL: Has back pain, stiffness or joint arthritis. SKIN: No current skin cancer. No rash. PSYCHIATRIC: Denies current depression or suicidal thoughts. ENDOCRINE: Denies current thyroid disorders. Has blood sugar glucose intolerance. HEME/LYMPHATIC: Denies any lumps and bumps around the neck. No recent deep venous thrombosis. ALLERGY/IMMUNOLOGY: No immunoglobulin therapy. No immune deficiencies. BREAST: Denies current breast lumps, pain or nipple discharge. PHYSICAL EXAM: VITALS: Reviewed CONSTITUTIONAL: Well developed and in no acute distress. EYES: Conjuctivae with sclera icterus. Pupils are equally round and reactive to light. Extraocular movements grossly intact. HEAD, EARS, NOSE, THROAT: Moist buccal mucosa. Head is atraumatic, normocephalic. Hears conversational speech. No nasal drainage. Good dentition. NECK: Supple. No JV distention. No thyroidomegaly. RESPIRATORY: Non-labored respirations and equal bilateral excursions. No gross wheezes. CARDIOVASCULAR: Regular rate and rhythm. Extremities without moderate edema. Palpable 2+ radial pulses. ABDOMEN: Protuberant, soft, exquisitely tender epigastrium and left upper quadrant. Has mild guarding. LYMPH: No neck lymphadenopathy. No axillary lymphadenopathy. MUSCULOSKELETAL: Gait within normal limits. Range of motion bilateral upper extremities within normal limits. Nail and fingers with good capillary refill. SKIN: Warm and well perfused with good skin turgor. NEUROLOGIC: Cranial nerves I through XII grossly intact. Sensation upper and extremities intact. No focal or lateralizing signs. PSYCH: Sad affect. Alert and oriented to person, place and time. CLINCAL LABS: Reviewed RADIOLOGY: Report reviewed MEDICAL TEST: Endoscopy reviewed IMAGING: Independently reviewed RECORDS: previous old records reviewed ASSESSMENT: 1. Intractable left upper quadrant and epigastric abdominal pain 2. History of peritoneal adhesions with multiple abdominal surgeries 3. Abnormal upper GI and small bowel follow-through consistent with adhesions PLAN: 1. She has history of multiple abdominal surgeries including peritoneal adhesions suggestive on prior studies. Robotic assisted lysis of adhesions described with possible small bowel resection described 2. Narcotic rules were reviewed with a history of chronic pain needs including for postoperative pain management. 3. DVT prophylaxis. 4. Antibiotic prophylaxis. 5. She was made aware the risks of surgery including bleeding, infection, pain , including persistence of her current pain were also reviewed as well. 6. Overall, patient presents intermediate to high risk for perioperative management including complications which were thoroughly reviewed and described. Past Medical History Past Medical History: Asthma, Blood Disorder, Chest Pain / Angina, COPD, Diabetes Mellitus, Fibromyalgia, GERD/Reflux, Hearing Disorder / Deafness, Hyperlipidemia, Hypertension, Liver Disease, Mitral Valve Prolapse (MVP), Musculoskeletal Disorder, Osteoarthritis (OA), Pneumonia, Respiratory Disorder, Sleep Apnea/CPAP/BIPAP Additional Past Medical History / Comment(s): 12--18 pt wants flu vaccine while here. MIGRAINES, DEGENERATIVE DISC DISEASE, FATTY LIVER, LEIDEN FACTOR 5, OCCASIONAL SWELLING IN LOWER EXT.NEUROPATHY, RLS, diabetes is in remission since surgery, chronic back pain, PATIENT HAS BEEN OFF MEDS FOR DIABETES SINCE BARIATRIC SURGERY History of Any Multi-Drug Resistant Organisms: None Reported Past Surgical History: Adenoidectomy, Appendectomy, Bariatric Surgery, Bowel Resection, Breast Surgery, Section, Cholecystectomy, Ear Surgery, Heart Catheterization, Hernia Repair, Orthopedic Surgery, Tonsillectomy Additional Past Surgical History / Comment(s): ARTHROSCOPY RT KNEE X3, RT BREAST BX-NEG, (13) MYRINGOTOMYS. laparoscopic danielle-en-y with lysis of adhesions 2013; Surgical wound debridement x3 ; SX TO REMOVED SCAR TISSUE FROM PREVIOUS ABD SX;EGD ; LAP EXAM- APPY SMALL BOWEL OBSTRUCTION LYSIS OFF ADHESIONS , 3 hernia repairs, 3 bowel resection, 07/2016 colon resection Past Anesthesia/Blood Transfusion Reactions: No Reported Reaction Additional Past Anesthesia/Blood Transfusion Reaction / Comment(s): SEVERE HEADACHE AFTER LAST SCOPE, clausterphobia Past Psychological History: Anxiety, Bipolar, Depression, PTSD Smoking Status: Former smoker Past Alcohol Use History: None Reported Past Drug Use History: None Reported - Past Family History Mother Family Medical History: Deep Vein Thrombosis (DVT), Hypertension, Pulmonary Embolus, Thyroid Disorder Additional Family Medical History / Comment(s): FACTOR 5 LEIDEN, MVP Father Family Medical History: Diabetes Mellitus, Hypertension, Myocardial Infarction ( [place]) Additional Family Medical History / Comment(s): AGE 59 [place] Medications and Allergies Home Medications Medication Instructions Recorded Confirmed Type Gabapentin 800 mg PO TID 03/30/15 04/23/18 History Albuterol Inhaler [Ventolin Hfa 2 puff INHALATION RT-Q6H PRN 11/28/15 04/23/18 History Inhaler] Cyclobenzaprine [Flexeril] 10 mg PO BID 08/05/16 04/23/18 History Budesonide/Formoterol Fumarate 2 puff INHALATION RT-BID 01/22/18 04/23/18 History [Symbicort 80-4.5 Mcg Inhaler] Ferrous Sulfate [Feosol] 325 mg PO TID 01/22/18 04/23/18 History Furosemide [Lasix] 20 mg PO DAILY 01/22/18 04/23/18 History Lisinopril [Zestril] 10 mg PO DAILY 01/22/18 04/23/18 History Metoclopramide HCl [Reglan] 5 mg PO DAILY PRN 01/22/18 04/23/18 History Metoprolol Succinate [Toprol XL] 50 mg PO DAILY 01/22/18 04/23/18 History Nitroglycerin Sl Tabs [Nitrostat] 0.4 mg PO Q5M PRN 01/22/18 04/23/18 History SUMAtriptan SUCCINATE [Imitrex] 50 mg PO ONCE PRN 01/22/18 04/23/18 History Vit B Complx C/Folic Acid/Zinc 1 tab PO DAILY 03/04/18 04/23/18 History [Renaplex Tablet] Zinc 50 mg PO DAILY 03/04/18 04/23/18 History Ibuprofen [Motrin] 600 mg PO Q8HR PRN #30 tab 03/21/18 04/23/18 Rx rOPINIRole HCL [Requip] 2 mg PO TID 03/21/18 04/23/18 History Cholecalciferol (Vitamin D3) 10,000 unit PO DAILY 03/23/18 04/23/18 History [Vitamin D3] Magnesium Oxide 400 mg PO DAILY 03/23/18 04/23/18 History Omeprazole 40 mg PO DAILY #14 capsule. 04/02/18 04/23/18 Rx Ondansetron Odt [Zofran Odt] 4 mg PO Q8HR PRN #10 tab 04/02/18 04/23/18 Rx traMADol HCl [Ultram] 50 mg PO DAILY PRN 04/23/18 04/23/18 History Allergies Allergy/AdvReac Type Severity Reaction Status Date / Time Sulfa (Sulfonamide Allergy Severe Anaphylaxis Verified 04/23/18 15:23 Antibiotics) adhesive tape Allergy BLISTERS Verified 04/23/18 15:23 amoxicillin [From Augmentin] Allergy Rash/Hives Verified 04/23/18 15:23 clavulanic acid Allergy Rash/Hives Verified 04/23/18 15:23 [From Augmentin] codeine Allergy ABDOMINAL Verified 04/23/18 15:23 PAIN, MIGRAINE HEADACHE morphine Allergy Itching Verified 04/23/18 15:23 Penicillins Allergy Rash/Hives Verified 04/23/18 15:23 adhesive AdvReac Itching Verified 04/23/18 15:23 artificial sweetners Allergy Nausea, Uncoded 04/23/18 14:37 MIGRAINE HEADACHE Surgical - Exam Vital Signs Temp Pulse Resp BP Pulse Ox 98.7 F 95 18 152/89 97 04/23/18 14:32 04/23/18 14:32 04/23/18 14:32 04/23/18 14:32 04/23/18 14:32 Results - Labs 04/23/18 14:56 04/23/18 14:56 Abnormal Lab Results - Last 24 Hours (Table) 04/23/18 04/23/18 04/23/18 Range/Units 14:56 14:56 14:56 Hgb 11.0 L (11.4-16.0) gm/dL Hct 33.5 L (34.0-46.0) % MCV 77.4 L (80.0-100.0) fL RDW 15.8 H (11.5-15.5) % APTT 19.8 L (22.0-30.0) sec Creatinine 0.41 L (0.52-1.04) mg/dL Glucose 119 H (74-99) mg/dL AST 38 H (14-36) U/L Urine Blood (Negative) Ur Leukocyte Esterase (Negative) Urine RBC (0-5) /hpf Urine WBC (0-5) /hpf Ur Squamous Epith Cells (0-4) /hpf Urine Mucus (None) /hpf 04/23/18 Range/Units 14:56 Hgb (11.4-16.0) gm/dL Hct (34.0-46.0) % MCV (80.0-100.0) fL RDW (11.5-15.5) % APTT (22.0-30.0) sec Creatinine (0.52-1.04) mg/dL Glucose (74-99) mg/dL AST (14-36) U/L Urine Blood Moderate H (Negative) Ur Leukocyte Esterase Small H (Negative) Urine RBC 163 H (0-5) /hpf Urine WBC 6 H (0-5) /hpf Ur Squamous Epith Cells 8 H (0-4) /hpf Urine Mucus Rare H (None) /hpf Diabetes panel 04/23/18 Range/Units 14:56 Sodium 137 (137-145) mmol/L Potassium 4.9 (3.5-5.1) mmol/L Chloride 101 (98-107) mmol/L Carbon Dioxide 29 (22-30) mmol/L BUN 10 (7-17) mg/dL Creatinine 0.41 L (0.52-1.04) mg/dL Glucose 119 H (74-99) mg/dL Calcium 9.4 (8.4-10.2) mg/dL AST 38 H (14-36) U/L ALT 27 (9-52) U/L Alkaline Phosphatase 104 (38-126) U/L Total Protein 7.6 (6.3-8.2) g/dL Albumin 4.2 (3.5-5.0) g/dL Calcium panel 04/23/18 Range/Units 14:56 Calcium 9.4 (8.4-10.2) mg/dL Albumin 4.2 (3.5-5.0) g/dL Pituitary panel 04/23/18 Range/Units 14:56 Sodium 137 (137-145) mmol/L Potassium 4.9 (3.5-5.1) mmol/L Chloride 101 (98-107) mmol/L Carbon Dioxide 29 (22-30) mmol/L BUN 10 (7-17) mg/dL Creatinine 0.41 L (0.52-1.04) mg/dL Glucose 119 H (74-99) mg/dL Calcium 9.4 (8.4-10.2) mg/dL Adrenal panel 04/23/18 Range/Units 14:56 Sodium 137 (137-145) mmol/L Potassium 4.9 (3.5-5.1) mmol/L Chloride 101 (98-107) mmol/L Carbon Dioxide 29 (22-30) mmol/L BUN 10 (7-17) mg/dL Creatinine 0.41 L (0.52-1.04) mg/dL Glucose 119 H (74-99) mg/dL Calcium 9.4 (8.4-10.2) mg/dL Total Bilirubin 1.1 (0.2-1.3) mg/dL AST 38 H (14-36) U/L ALT 27 (9-52) U/L Alkaline Phosphatase 104 (38-126) U/L Total Protein 7.6 (6.3-8.2) g/dL Albumin 4.2 (3.5-5.0) g/dL Assessment and Plan (1) Left upper quadrant pain Current Visit: Yes Status: Acute Code(s): R10.12 - LEFT UPPER QUADRANT PAIN SNOMED Code(s): 652718150 (2) Left lower quadrant pain Current Visit: Yes Status: Acute Code(s): R10.32 - LEFT LOWER QUADRANT PAIN SNOMED Code(s): 380419080 (3) History of small bowel obstruction Current Visit: No Status: Acute Code(s): Z87.19 - PERSONAL HISTORY OF OTHER DISEASES OF THE DIGESTIVE SYSTEM SNOMED Code(s): 175252729724139 (4) Intractable abdominal pain Current Visit: No Status: Acute Code(s): R10.9 - UNSPECIFIED ABDOMINAL PAIN SNOMED Code(s): 35998188 (5) Intractable nausea and vomiting Current Visit: No Status: Acute Code(s): R11.2 - NAUSEA WITH VOMITING, UNSPECIFIED SNOMED Code(s): 216415379 (6) Morbid obesity Current Visit: No Status: Acute Code(s): E66.01 - MORBID (SEVERE) OBESITY DUE TO EXCESS CALORIES SNOMED Code(s): 322696081 (7) Chronic pain syndrome Current Visit: No Status: Chronic Code(s): G89.4 - CHRONIC PAIN SYNDROME SNOMED Code(s): 447150884 (8) Diabetes type 2, controlled Current Visit: No Status: Chronic Code(s): E11.9 - TYPE 2 DIABETES MELLITUS WITHOUT COMPLICATIONS SNOMED Code(s): 80328952 (9) Iron deficiency anemia due to dietary causes Current Visit: Yes Status: Acute Code(s): D50.8 - OTHER IRON DEFICIENCY ANEMIAS SNOMED Code(s): 175321263 (10) Fibromyalgia Current Visit: Yes Status: Acute Code(s): M79.7 - FIBROMYALGIA SNOMED Code (s): 766483273 (11) Multiple sclerosis Current Visit: Yes Status: Acute Code(s): G35 - MULTIPLE SCLEROSIS SNOMED Code(s): 67774659
[2018-04-23] MEDS: GABAPENTIN 400 MG CAP PO SCH (21:04)
[2018-04-23] MEDS: CYCLOBENZAPRINE 10 MG TAB PO SCH (21:04)
[2018-04-24 00:49] VITALS: RESP 16
[2018-04-24] MEDS: SODIUM CHLORIDE 0.9% 1,000 ML IV SCH ×2 (02:29→15:25)
[2018-04-24] MEDS: HYDROmorphone 1 MG/ML 1 ML SYRINGE IVP PRN ×5 (02:36→23:07)
[2018-04-24] MEDS: ONDANSETRON 4 MG/2 ML VIAL IVP PRN ×3 (06:25→15:24)
[2018-04-24] MEDS: LISINOPRIL 10 MG TAB PO SCH (07:49)
[2018-04-24] MEDS: FUROSEMIDE 20 MG TAB PO SCH (07:49)
[2018-04-24] MEDS: METOPROLOL SUCCINATE (ER) 50 MG TAB.ER.24H PO SCH (07:50)
[2018-04-24] MEDS: GABAPENTIN 400 MG CAP PO SCH ×3 (07:50→23:05)
[2018-04-24] MEDS: CYCLOBENZAPRINE 10 MG TAB PO SCH ×2 (07:50→23:05)
[2018-04-24] MEDS: PANTOPRAZOLE 40 MG/10 ML VIAL IV SCH (07:50)
[2018-04-24 08:00] LABS: Basophils % (A) 1 %; Eosinophils # (A) 0.2 k/uL (0-0.7); Eosinophils % (A) 2 %; HCT 30.8 % (34.0-46.0); HGB 9.8 gm/dL (11.4-16.0); Hypochromasia Slight; Lymphocytes # (A) 1.6 k/uL (1.0-4.8); Lymphocytes % (A) 24 %; MCH 25.6 pg (25.0-35.0); MCHC 31.8 g/dL (31.0-37.0); MCV 80.7 fL (80.0-100.0); Mean Platelet Volume 6.8; Monocytes # (A) 0.3 k/uL (0-1.0); Monocytes % (A) 5 %; Neutrophils # (A) 4.5 k/uL (1.3-7.7); Neutrophils % (A) 67 %; Platelet Count 267 k/uL (150-450); RBC 3.82 m/uL (3.80-5.40); RDW 15.7 % (11.5-15.5); WBC 6.7 k/uL (3.8-10.6)
[2018-04-24 08:11] LABS: Chloride 101 mmol/L (98-107)
[2018-04-24 08:13] LABS: Anion Gap 6 mmol/L; Blood Urea Nitrogen 11 mg/dL (7-17); Calcium 8.6 mg/dL (8.4-10.2); Carbon Dioxide 30 mmol/L (22-30); Glucose 131 mg/dL (74-99); Potassium 4.4 mmol/L (3.5-5.1); Sodium 137 mmol/L (137-145)
[2018-04-24] MEDS ORDERED: diphenhydrAMINE 50 MG/ML 1 ML VIAL IVP PRN (08:56)
[2018-04-24] MEDS: SYMBICORT 80-4.5 MCG INHALER INHALATION SCH ×2 (09:26→21:29)
--- NOTE | 2018-04-24 14:17 | P.PN ---
Subjective Progress Note Date: 04/24/18 CHIEF COMPLAINT: Abdominal pain HISTORY OF PRESENT ILLNESS: 47-year-old female who presented to the emergency room with severe left upper and lower quadrant pain that has been present for 2 weeks. Patient examined at the bedside this morning. She reports continued abdominal pain. Reports nausea, but no emesis. She is complaining of itching at her IV site due to adhesive dressing. PHYSICAL EXAM: VITAL SIGNS: Currently stable. GENERAL: Well-developed in no acute distress. HEENT: No sclera icterus. Extraocular movements grossly intact. Moist buccal mucosa. Head is atraumatic, normocephalic. Hears conversational speech. No nasal drainage. NECK: Supple without lymphadenopathy. CHEST: Non-labored respirations and equal bilateral excursions. CARDIOVASCULAR: Regular rate with regular rhythm. Palpable 2+ radial pulses. ABDOMEN: Soft. Nondistended. Tenderness upon palpation of left upper and lower quadrant. MUSCULOSKELETAL: No clubbing, cyanosis or edema. NEUROLOGIC: No focal or lateralizing signs. Cranial nerves II through XII grossly intact. PSYCH: Appropriate affect. Alert and oriented to person, place and time. SKIN: Well perfused. Good skin turgor. ASSESSMENT: 1. Intractable left upper quadrant and epigastric abdominal pain 2. History of peritoneal adhesions with multiple abdominal surgeries 3. Abnormal upper GI and small bowel follow-through consistent with adhesions PLAN: NPO. Continue anti-emetics. Benadryl when necessary for pruritus. Patient to undergo robotic-assisted lysis of adhesions with possible small bowel resection today with Dr. Dumont Nurse practitioner note has been reviewed by physician. Signing provider agrees with the documented findings, assessment, and plan of care. Objective - Vital Signs Vital signs: Vital Signs Temp 98.4 F 04/24/18 07:00 Pulse 70 04/24/18 07:00 Resp 16 04/24/18 07:45 BP 156/83 04/24/18 07:00 Pulse Ox 99 04/24/18 07:00 Intake & Output 04/23/18 04/24/18 04/24/18 18:59 06:59 18:59 Weight 108.862 kg Other: # Voids 1 - Labs CBC & Chem 7: 04/24/18 06:47 04/24/18 06:47 Labs: Abnormal Lab Results - Last 24 Hours (Table) 03/08/0604/23/18 04/23/18 Range/Units 14:56 14:56 14:56 Hgb 11.0 L (11.4-16.0) gm/dL Hct 33.5 L (34.0-46.0) % MCV 77.4 L (80.0-100.0) fL RDW 15.8 H (11.5-15.5) % APTT 19.8 L (22.0-30.0) sec Creatinine 0.41 L (0.52-1.04) mg/dL Glucose 119 H (74-99) mg/dL AST 38 H (14-36) U/L Urine Blood (Negative) Ur Leukocyte Esterase (Negative) Urine RBC (0-5) /hpf Urine WBC (0-5) /hpf Ur Squamous Epith Cells (0-4) /hpf Urine Mucus (None) /hpf 04/23/18 04/24/18 04/24/18 Range/Units 14:56 06:47 06:47 Hgb 9.8 L (11.4-16.0) gm/dL Hct 30.8 L (34.0-46.0) % MCV (80.0-100.0) fL RDW 15.7 H (11.5-15.5) % APTT (22.0-30.0) sec Creatinine (0.52-1.04) mg/dL Glucose 131 H (74-99) mg/dL AST (14-36) U/L Urine Blood Moderate H (Negative) Ur Leukocyte Esterase Small H (Negative) Urine RBC 163 H (0-5) /hpf Urine WBC 6 H (0-5) /hpf Ur Squamous Epith Cells 8 H (0-4) /hpf Urine Mucus Rare H (None) /hpf Assessment and Plan (1) Fibromyalgia Current Visit: Yes Status: Acute Code(s): M79.7 - FIBROMYALGIA SNOMED Code(s): 610200225 (2) Iron deficiency anemia due to dietary causes Current Visit: Yes Status: Acute Code(s): D50.8 - OTHER IRON DEFICIENCY ANEMIAS SNOMED Code(s): 104569834 (3) Left lower quadrant pain Current Visit: Yes Status: Acute Code(s): R10.32 - LEFT LOWER QUADRANT PAIN SNOMED Code(s): 194957033 (4) Left upper quadrant pain Current Visit: Yes Status: Acute Code(s): R10.12 - LEFT UPPER QUADRANT PAIN SNOMED Code(s): 822241120 (5) Multiple sclerosis Current Visit: Yes Status: Acute Code(s): G35 - MULTIPLE SCLEROSIS SNOMED Code(s): 25312660 (6) Abdominal pain Current Visit: No Status: Acute Code(s): R10.9 - UNSPECIFIED ABDOMINAL PAIN SNOMED Code(s): 38676380 (7) Intractable abdominal pain Current Visit: No Status: Acute Code(s): R10.9 - UNSPECIFIED ABDOMINAL PAIN SNOMED Code(s): 21994719 (8) Chronic pain syndrome Current Visit: No Status: Chronic Code(s): G89.4 - CHRONIC PAIN SYNDROME SNOMED Code(s): 250710189 (9) Diabetes type 2, controlled Current Visit: No Status: Chronic Code(s): E11.9 - TYPE 2 DIABETES MELLITUS WITHOUT COMPLICATIONS SNOMED Code(s): 41066306 (10) Morbid obesity with BMI of 40.0-44.9, adult Current Visit: No Status: Chronic Code(s): E66.01 - MORBID (SEVERE) OBESITY DUE TO EXCESS CALORIES SNOMED Code(s): 184443458
[2018-04-24] MEDS ORDERED: IV FLUID CONTINUATION 1,000 ML IV ONE (16:14)
[2018-04-24 16:28] LABS: Glucose,Whole Blood 112 mg/dL (75-99)
[2018-04-24] MEDS ORDERED: MIDAZOLAM 2 MG/2 ML VIAL IVP ONE (16:55)
[2018-04-24] MEDS ORDERED: HEPARIN SODIUM,PORCINE 5,000 UNIT/ML 1 ML VIAL SQ ONE (17:28)
[2018-04-24] MEDS ORDERED: CLINDAMYCIN 900 MG in DEXTROSE 5% IN WATER 50 ML IVPB STA ×2 (17:29)
[2018-04-24] MEDS ORDERED: ROCURONIUM BROMIDE 10 MG/ML 10 ML VIAL IV ONE (17:49)
[2018-04-24] MEDS ORDERED: NEOSTIGMINE 1 MG/ML 10 ML VIAL ONE (17:49)
[2018-04-24] MEDS ORDERED: DEXAMETHASONE SOD PHOS (MDV) 100 MG/10 ML VIAL ONE (17:49)
[2018-04-24] MEDS ORDERED: LIDOCAINE 1% INJ 10MG/ML (20 ML MDV) ONE (17:49)
[2018-04-24] MEDS ORDERED: GLYCOPYRROLATE 0.2 MG/ML 2 ML VIAL ONE (17:49)
[2018-04-24] MEDS ORDERED: fentaNYL (PF) 50 MCG/ML 2 ML AMP ONE (17:49)
[2018-04-24] MEDS ORDERED: MIDAZOLAM 2 MG/2 ML VIAL ONE (17:49)
[2018-04-24] MEDS ORDERED: SUCCINYLCHOLINE CHLORIDE 100 MG/5 ML SYR IV ONE (17:49)
[2018-04-24] MEDS ORDERED: PROPOFOL 10 MG/ML 20 ML VIAL IV ONE (17:49)
[2018-04-24] MEDS ORDERED: ONDANSETRON 4 MG/2 ML VIAL ONE (17:49)
[2018-04-24] MEDS ORDERED: BUPIVACAIN-EPI 0.5%-1:200,000 30 ML VIAL SQ ONE (18:12)
[2018-04-24] MEDS ORDERED: LACTATED RINGERS 1,000 ML IV ONE (18:18)
[2018-04-25] MEDS: SODIUM CHLORIDE 0.9% 1,000 ML IV SCH ×2 (00:09→07:18)
[2018-04-25] MEDS: HYDROmorphone 1 MG/ML 1 ML SYRINGE IVP PRN ×2 (05:03→11:32)
[2018-04-25] MEDS: FUROSEMIDE 20 MG TAB PO SCH (07:17)
[2018-04-25] MEDS: PANTOPRAZOLE 40 MG/10 ML VIAL IV SCH (07:17)
[2018-04-25] MEDS: METOPROLOL SUCCINATE (ER) 50 MG TAB.ER.24H PO SCH (07:17)
[2018-04-25] MEDS: GABAPENTIN 400 MG CAP PO SCH (07:17)
[2018-04-25] MEDS: LISINOPRIL 10 MG TAB PO SCH (07:18)
[2018-04-25 07:26] LABS: Albumin 3.3 g/dL (3.5-5.0); Calcium 8.2 mg/dL (8.4-10.2); Magnesium 1.7 mg/dL (1.6-2.3); Potassium 4.9 mmol/L (3.5-5.1); Total Bilirubin 0.7 mg/dL (0.2-1.3); Total Protein 5.9 g/dL (6.3-8.2)
--- NOTE | 2018-04-25 07:33 | P.OP ---
Date of Procedure: 04/24/18 Description of Procedure: SURGEON: SAM NORTH MD PREOPERATIVE DIAGNOSES: 1. Intractable left upper quadrant and left lower quadrant abdominal pain 2. Personal history of multiple peritoneal adhesions 3. Personal history of intussusception 4. History of gastric bypass 5. Morbid obesity due to excess calories, BMI 46.9 6. Fibromyalgia 7. Chronic pain syndrome 8. Diabetes type 2, [id number] 9. Hypertensive heart disease 10. History of intractable nausea vomiting 11. Chronic lower back pain 12. Asthma 13. Chronic iron deficiency anemia due to an adequate intake 14. Obstructive sleep apnea 15. Gastroesophageal reflux disease POSTOPERATIVE DIAGNOSES: 1. Intractable left upper quadrant and left lower quadrant abdominal pain 2. Personal history of multiple peritoneal adhesions 3. Personal history of intussusception 4. History of gastric bypass 5. Morbid obesity due to excess calories, BMI 46.9 6. Fibromyalgia 7. Chronic pain syndrome 8. Diabetes type 2, [id number] 9. Hypertensive heart disease 10. History of intractable nausea vomiting 11. Chronic lower back pain 12. Asthma 13. Chronic iron deficiency anemia due to an adequate intake 14. Obstructive sleep apnea 15. Gastroesophageal reflux disease 16. Peritoneal adhesion with internal hernia 17. Sigmoid volvulus OPERATION: 1. Robotic-assisted da Rocio Xi laparoscopic with lysis of adhesions ESTIMATED BLOOD LOSS: 5 mL SPECIMENS REMOVED: None. COMPLICATIONS: None. OPERATIVE FINDINGS: 1. No ventral hernias identified. 2. Peritoneal adhesion along the sigmoid colon within internal hernia. 3. Diagnostic laparoscopy with dilated sigmoid colon and transverse colon 4. No internal hernias 5. Barb limb, biliopancreatic limb, and common channel unremarkable. INDICATIONS: The patient is a 47-year-old female... Surgical intervention with diagnostic laparoscopy, possible ventral hernia repair were described. Informed consent was obtained. Robotic assisted laparoscopic approach was described. Benefits and risks of the procedure including but not limited to bleeding, infection, injury to the biliary tree was described. Informed consent was obtained. DESCRIPTION OF PROCEDURE: Patient was brought to the operating room, placed in supine position. After general induction, the abdomen had been prepped and draped in standard sterile fashion. The robotic da Rocio XI system was primed. After a timeout protocol was performed, the patient had been prepped and draped in standard sterile fashion. The robot was docked along the right lateral abdomen. The patient was repositioned in with right side up. Please note prior to docking of the robot; however, a 5 mm 0 degrees laparoscopic trocar entry was performed along the right upper quadrant. Next, two 8 mm robotic ports were placed along the right lateral abdominal wall. The camera 8-mm port was maintained along mid- lateral abdomen. The 8 mm port was placed along the right upper abdominal wall was exchanged from the 5 mm port. Please note that the ports were placed at least 10 to 15 cm away from the target anatomy. Using a grasper for arm 2, including scissor for arm 1, the robotic system was docked and primed as described. Instruments were interchanged by the cement tester assistant including Bovie cautery scissors. I had sat at the console. Omental adhesions along the epigastric abdominal wall was addressed using scissors. No evidence of incisional hernia was identified. The rest of the a bdomen was unremarkable for small bowel pathology. No port site hernias were identified. A large mesenteric cyst over 5 cm was excised from the right upper quadrant abdominal wall and clear fluid was found. The mesenteric cyst wall was sent for pathological analysis. The small bowel from the barb limb to distal ileum was performed. An internal hernia of the transverse mesocolon was identified and lysed. No evidence of small bowel obstruction was found. The robot was undocked. All pneumoperitoneum instruments were evacuated from the abdominal cavity. The incisions were reapproximated using 4-0 Monocryl in an interrupted subcuticular fashion. Please note along the trocar sites, local anesthetic was placed as a field block prior to insertion of all instruments. Exofin was applied to the skin. At the end of the procedure needle, sponge, and instrument count had been verified correct by the ekg/ecg technician. The patient was transferred to postanesthesia care unit in stable condition. Console time 44 minutes
[2018-04-25 07:46] VITALS: TEMP 98.6
[2018-04-25] MEDS: SYMBICORT 80-4.5 MCG INHALER INHALATION SCH (08:07)
[2018-04-25] MEDS ORDERED: ENOXAPARIN 40 MG/0.4 ML SYRINGE SQ SCH (09:00)
--- NOTE | 2018-04-25 11:01 | FL ---
EXAMINATION TYPE: FL barium enema DATE OF EXAM: 04/25/2018 COMPARISON: CT dated 04/23/2018 HISTORY: Abdominal pain. Prior gastric bypass surgery and lysis of adhesions. Concern for volvulus. TECHNIQUE: A single contrast barium enema study is performed. 1 minute and 41 seconds of fluoroscopy time was utilized with 55 images saved. FINDINGS: Refinery Operator Reforming Unit view of the abdomen shows air-filled mildly dilated loops of colon throughout the ab domen measuring up to 6.8 cm. The colon is diffusely redundant. No gross evidence of any mass or poly p, obstructing or constricting lesion throughout the colon. No significant diverticular disease is n oted. The terminal ileum was refluxed and appears within normal limits. IMPRESSION: Diffuse colonic redundancy and mild gaseous dilatation. No evidence of volvulus or obstr uction.
[2018-04-25] MEDS: CYCLOBENZAPRINE 10 MG TAB PO SCH (11:26)
[2018-04-25 11:32] VITALS: BP 141/84; PULSE 71
[2018-04-25] MEDS: ONDANSETRON 4 MG/2 ML VIAL IVP PRN (11:37)
--- NOTE | 2018-04-25 12:00 | P.DS ---
Providers Date of admission: 04/23/18 18:03 Expected date of discharge: 04/25/18 Attending physician: Latricia Dumont Primary care physician: Yarely Boothe MD - Discharge Diagnosis(es) (1) Fibromyalgia Current Visit: Yes Status: Acute (2) Iron deficiency anemia due to dietary causes Current Visit: Yes Status: Acute (3) Left lower quadrant pain Current Visit: Yes Status: Acute (4) Left upper quadrant pain Current Visit: Yes Status: Acute (5) Multiple sclerosis Current Visit: Yes Status: Acute (6) Abdominal pain Current Visit: No Status: Acute (7) Intractable abdominal pain Current Visit: No Status: Acute (8) Chronic pain syndrome Current Visit: No Status: Chronic (9) Diabetes type 2, controlled Current Visit: No Status: Chronic (10) Morbid obesity with BMI of 40.0-44.9, adult Current Visit: No Status: Chronic Hospital Course: 47-year-old female who presented to the emergency room with severe left upper and lower quadrant pain that has been present for 2 weeks. Patient has a known history of intra-abdominal adhesions. Patient underwent robotic- assisted da Rocio Xi laparoscopic lysis of adhesions on 04/24/2018. She was found to have a dilated sigmoid colon and transverse colon. She underwent barium enema on 04/25/2018 which was negative for volvulus. Patient is doing well postoperatively without any immediate complications. She is stable for discharge home today. Please see EMR for further hospital course details. Discharge Diagnosis: 1. Intractable left upper quadrant and epigastric abdominal pain 2. History of peritoneal adhesions with multiple abdominal surgeries 3. Abnormal upper GI and small bowel follow-through consistent with adhesions Nurse practitioner note has been reviewed by physician. Signing provider agrees with the documented findings, assessment, and plan of care. Patient Condition at Discharge: Stable Plan - Discharge Summary Discharge Rx Participant: Yes New Discharge Prescriptions: No Action Gabapentin 800 mg PO TID Albuterol Inhaler [Ventolin Hfa Inhaler] 2 puff INHALATION RT-Q6H PRN PRN Reason: Shortness Of Breath Cyclobenzaprine [Flexeril] 10 mg PO BID SUMAtriptan SUCCINATE [Imitrex] 50 mg PO ONCE PRN PRN Reason: ONSET OF HEADACHE Nitroglycerin Sl Tabs [Nitrostat] 0.4 mg PO Q5M PRN PRN Reason: Chest Pain Metoprolol Succinate [Toprol XL] 50 mg PO DAILY Metoclopramide HCl [Reglan] 5 mg PO DAILY PRN PRN Reason: ABDOMINAL PAIN Lisinopril [Zestril] 10 mg PO DAILY Furosemide [Lasix] 20 mg PO DAILY Ferrous Sulfate [Feosol] 325 mg PO TID Budesonide/Formoterol Fumarate [Symbicort 80-4.5 Mcg Inhaler] 2 puff INHALATION RT-BID Vit B Complx C/Folic Acid/Zinc [Renaplex Tablet] 1 tab PO DAILY Zinc 50 mg PO DAILY Ibuprofen [Motrin] 600 mg PO Q8HR PRN #30 tab PRN Reason: Pain rOPINIRole HCL [Requip] 2 mg PO TID Magnesium Oxide 400 mg PO DAILY Cholecalciferol (Vitamin D3) [Vitamin D3] 10,000 unit PO DAILY Omeprazole 40 mg PO DAILY #14 capsule. Ondansetron Odt [Zofran Odt] 4 mg PO Q8HR PRN #10 tab PRN Reason: Nausea traMADol HCl [Ultram] 50 mg PO DAILY PRN PRN Reason: Pain Discharge Medication List Gabapentin 800 mg PO TID 03/30/15 [History] Albuterol Inhaler [Ventolin Hfa Inhaler] 2 puff INHALATION RT-Q6H PRN 11/28/15 [History] Cyclobenzaprine [Flexeril] 10 mg PO BID 08/05/16 [History] Budesonide/Formoterol Fumarate [Symbicort 80-4.5 Mcg Inhaler] 2 puff INHALATION RT-BID 01/22/18 [History] Ferrous Sulfate [Feosol] 325 mg PO TID 01/22/18 [History] Furosemide [Lasix] 20 mg PO DAILY 01/22/18 [History] Lisinopril [Zestril] 10 mg PO DAILY 01/22/18 [History] Metoclopramide HCl [Reglan] 5 mg PO DAILY PRN 01/22/18 [History] Metoprolol Succinate [Toprol XL] 50 mg PO DAILY 01/22/18 [History] Nitroglycerin Sl Tabs [Nitrostat] 0.4 mg PO Q5M PRN 01/22/18 [History] SUMAtriptan SUCCINATE [Imitrex] 50 mg PO ONCE PRN 12/05/18 [History] Vit B Complx C/Folic Acid/Zinc [Renaplex Tablet] 1 tab PO DAILY 03/04/18 [History] Zinc 50 mg PO DAILY 03/04/18 [History] Ibuprofen [Motrin] 600 mg PO Q8HR PRN #30 tab 03/21/18 [Rx] rOPINIRole HCL [Requip] 2 mg PO TID 03/21/18 [History] Cholecalciferol (Vitamin D3) [Vitamin D3] 10,000 unit PO DAILY 03/23/18 [History] Magnesium Oxide 400 mg PO DAILY 03/23/18 [History] Omeprazole 40 mg PO DAILY #14 capsule. 04/02/18 [Rx] Ondansetron Odt [Zofran Odt] 4 mg PO Q8HR PRN #10 tab 04/02/18 [Rx] traMADol HCl [Ultram] 50 mg PO DAILY PRN 04/23/18 [History] Follow up Appointment(s)/Referral(s): Yarely Boothe MD [Primary Care Provider] - 1-2 days
[2018-04-25 13:08] LABS: Iron Saturation 8.05 (12.00-45.00)
== END 2018-04-25 13:24 | disposition home or self-care (01) ==
LOC: EC 14:09 → 4SSUR 18:03
PROVIDERS: ADMIT Surgery Plastic and Reconstructive Surgery; ATTEND Surgery Plastic and Reconstructive Surgery
DX: K56.50 Intestinal adhesions [bands], unspecified as to partial versus complete obstruction (principal); K66.8 Other specified disorders of peritoneum; G35 Multiple sclerosis; D50.8 Other iron deficiency anemias; M79.7 Fibromyalgia; M54.16 Radiculopathy, lumbar region; E66.01 Morbid (severe) obesity due to excess calories; Z68.42 Body mass index [BMI] 45.0-49.9, adult; G89.4 Chronic pain syndrome; K21.9 Gastro-esophageal reflux disease without esophagitis; J44.9 Chronic obstructive pulmonary disease, unspecified; I34.1 Nonrheumatic mitral (valve) prolapse; I11.9 Hypertensive heart disease without heart failure; H91.90 Unspecified hearing loss, unspecified ear; G47.33 Obstructive sleep apnea (adult) (pediatric); E78.5 Hyperlipidemia, unspecified; E11.40 Type 2 diabetes mellitus with diabetic neuropathy, unspecified; M19.90 Unspecified osteoarthritis, unspecified site; K76.0 Fatty (change of) liver, not elsewhere classified; G43.909 Migraine, unspecified, not intractable, without status migrainosus; D68.51 Activated protein C resistance; G25.81 Restless legs syndrome; F40.240 Claustrophobia; F43.10 Post-traumatic stress disorder, unspecified; F31.9 Bipolar disorder, unspecified; F41.9 Anxiety disorder, unspecified; Z79.51 Long term (current) use of inhaled steroids; Z79.899 Other long term (current) drug therapy; Z88.0 Allergy status to penicillin; Z88.5 Allergy status to narcotic agent; Z88.8 Allergy status to other drugs, medicaments and biological substances; Z91.048 Other nonmedicinal substance allergy status; Z90.49 Acquired absence of other specified parts of digestive tract; Z87.19 Personal history of other diseases of the digestive system; Z87.891 Personal history of nicotine dependence; Z98.84 Bariatric surgery status; Z83.3 Family history of diabetes mellitus; Z82.49 Family history of ischemic heart disease and other diseases of the circulatory system; Z83.2 Family history of diseases of the blood and blood-forming organs and certain disorders involving the immune mechanism; Z83.49 Family history of other endocrine, nutritional and metabolic diseases
CPT/HCPCS: 44180; S2900; 36415; 74177; 74270; 80048; 80053; 81001; 81025; 82728; 83540; 83550; 83605; 83690; 83735; 85025; 85610; 85730; 93005; 94640; 96361; 96374; 96375; 96376; 99211; 99285

== ENCOUNTER → 2018-04-23 | Outpatient (CLI) | payer MEDICARE, OTHER ==
[2018-04-23 12:21] VITALS: BP 162/92; PULSE 94; RESP 16; TEMP 98; BMI 45.3
--- NOTE | 2018-04-23 12:59 | P.PN ---
Subjective Progress Note Date: 04/23/18 HPI: She comes in with severe abdominal pain at the left upper quadrant. ABDOMEN: Tender at the left upper quadrant. PLAN: 1. Robotic lysis of adhesions described Objective - Vital Signs Vital signs: Vital Signs Temp 98 F 04/23/18 12:14 Pulse 94 04/23/18 12:14 Resp 16 04/23/18 12:14 BP 162/92 04/23/18 12:14 Pulse Ox Intake & Output 04/22/18 04/23/18 04/23/18 18:59 06:59 18:59 Weight 108.862 kg
== END ==
LOC: BARWHC3 11:51
PROVIDERS: ATTEND Surgery Plastic and Reconstructive Surgery
DX: R10.12 Left upper quadrant pain (principal); R10.812 Left upper quadrant abdominal tenderness
CPT/HCPCS: 99211

== ENCOUNTER → 2018-05-07 | Outpatient (CLI) | payer MEDICARE, OTHER ==
[2018-05-07 19:16] VITALS: BP 183/103; PULSE 71; RESP 16; TEMP 98; BMI 44.3
--- NOTE | 2018-05-07 19:46 | P.PN ---
Subjective Progress Note Date: 05/07/18 HPI: She comes in complaining of diarrhea, loose stools at least 3 times daily. She reports nasuea, poor energy. Abdominal pain from pre-op now improved since surgery. Findings include redundant sigmoid colon with volvulus. She reports 40 pounds weight gain ABDOMEN: Incisions intact. No cellulitis. STUDIES: Colon shows highly redundant colon with resolved volvulus. LABS: Reviewed showing severe iron deficiency with anemia and renal insufficiency ASSESSMENT: 1. Colitis 2. Colon Volvulus 3. Iron deficiency anemia 4. Dehydration PLAN: 1. IV fluid hydration 2-Liters for severe nausea and dehydration 2. Will need iron infusion for severe symptomatic iron deficiency anemia 3. Flagyl for colitis 4. Recommend colonoscopy for colitis 5. EGD for gastric stenosis 6. Patient is seeking colon resection for history of recurrent sigmoid volvulus. Correction of current colitis, malnutrition, dehydration, and renal insufficiency. Objective - Vital Signs Vital signs: Vital Signs Temp 98 F 05/07/18 19:10 Pulse 71 05/07/18 19:10 Resp 16 05/07/18 19:10 BP 183/103 05/07/18 19:10 Pulse Ox Intake & Output 05/07/18 05/07/18 05/08/18 06:59 18:59 06:59 Weight 106.396 kg
== END | disposition home or self-care (01) ==
LOC: BARWHC3 15:53
PROVIDERS: ATTEND Surgery Plastic and Reconstructive Surgery
DX: K52.9 Noninfective gastroenteritis and colitis, unspecified (principal); K56.2 Volvulus; D50.9 Iron deficiency anemia, unspecified; Z98.890 Other specified postprocedural states
CPT/HCPCS: 99211

== ENCOUNTER 2018-05-25 22:20 | Observation (INO) | payer MEDICARE, OTHER ==
[2018-05-25] MEDS ORDERED: SODIUM CHLORIDE 0.9% 1,000 ML IV STA (22:37)
[2018-05-25] MEDS ORDERED: ONDANSETRON 4 MG/2 ML VIAL IVP STA (23:16)
[2018-05-25] MEDS ORDERED: HYDROmorphone 2 MG/ML 1 ML SYRINGE IVP STA (23:16)
[2018-05-25 23:17] LABS: Anisocytosis Slight; Basophils # (A) 0.1 k/uL (0-0.2); Basophils % (A) 1 %; Eosinophils # (A) 0.2 k/uL (0-0.7); Eosinophils % (A) 2 %; HCT 30.3 % (34.0-46.0); HGB 10.3 gm/dL (11.4-16.0); Lymphocytes # (A) 2.7 k/uL (1.0-4.8); Lymphocytes % (A) 28 %; MCH 24.8 pg (25.0-35.0); Mean Platelet Volume 9.7; Microcytosis Moderate; Monocytes # (A) 0.4 k/uL (0-1.0); Monocytes % (A) 4 %; Neutrophils # (A) 6.1 k/uL (1.3-7.7); Neutrophils % (A) 63 %; Platelet Count 278 k/uL (150-450); RBC 4.16 m/uL (3.80-5.40); RDW 16.7 % (11.5-15.5); WBC 9.7 k/uL (3.8-10.6)
[2018-05-25] MEDS ORDERED: SODIUM CHLORIDE 0.9% 1,000 ML IV ONE (23:17)
[2018-05-25 23:20] LABS: MCV 72.9 fL (80.0-100.0)
[2018-05-25 23:45] LABS: Appearance,Urine Clear (Clear); Bilirubin,Urine Negative (Negative); Blood,Urine Negative (Negative); Color,Urine Yellow; Glucose,Urine (UA) Negative (Negative); Ketones,Urine Negative (Negative); Leukocyte Esterase,Urine Negative (Negative); Nitrite,Urine Negative (Negative); PH, Urine 6.5 (5.0-8.0); Protein,Urine Negative (Negative); Specific Gravity,Urine 1.018 (1.001-1.035)
[2018-05-25 23:53] LABS: ALT 23 U/L (9-52); AST 19 U/L (14-36); Alkaline Phosphatase 129 U/L (38-126); Amylase 52 U/L (30-110); Anion Gap 9 mmol/L; Blood Urea Nitrogen 14 mg/dL (7-17); Calcium 8.9 mg/dL (8.4-10.2); Carbon Dioxide 24 mmol/L (22-30); Chloride 105 mmol/L (98-107); Glucose 111 mg/dL (74-99); Lipase 57 U/L (23-300); Potassium 4.4 mmol/L (3.5-5.1); Sodium 138 mmol/L (137-145); Total Bilirubin 0.6 mg/dL (0.2-1.3); Total Protein 6.9 g/dL (6.3-8.2)
--- NOTE | 2018-05-26 00:31 | XR ---
EXAM: XR Abdomen, 1 View CLINICAL HISTORY: abdominal pain TECHNIQUE: Frontal supine view of the abdomen/pelvis. COMPARISON: Abdominal radiographs from 04-02-18, CT abdomen and pelvis from 04/23/18 FINDINGS: Gastrointestinal tract: Nonspecific bowel gas pattern. Moderate amount of stool in the colon. No dilation. Foreign objects: Surgical clips of gallbladder fossa, central abdomen and right lower quadrant are again noted. Bones/joints: Mild degenerative changes IMPRESSION: Nonspecific bowel gas pattern.
[2018-05-26] MEDS ORDERED: HYDROmorphone 2 MG/ML 1 ML SYRINGE IVP STA ×2 (00:56→02:46)
[2018-05-26] MEDS ORDERED: diphenhydrAMINE 50 MG/ML 1 ML VIAL IVP STA ×2 (01:20→05:14)
--- NOTE | 2018-05-26 01:29 | ED ---
Abdominal Pain HPI - General Source: patient Mode of arrival: ambulatory Limitations: no limitations <Angelic Fitzgerald - Last Filed: 05/26/18 03:03> <Tristan Navarro - Last Filed: 05/29/18 08:48> - General Chief Complaint: Abdominal Pain Stated Complaint: Abd pain Time Seen by Provider: 05/25/18 22:32 - History of Present Illness Initial Comments: 47 old female patient with past medical history significant for bowel instruction, colon resection, bowel adhesions, and Danielle-en-Y gastric bypass surgery presents to the emergency department today for evaluation of left upper quadrant abdominal pain. Patient states the pain starts in the left lower abdomen and radiates into the left upper abdomen. States that she has had this pain several times in the past. She was admitted one month ago for similar symptoms and did undergo lysis of adhesions and a barium enema study. Patient states that this episode of pain started around 1 in the afternoon today. Patient states it has been constant and severe since then. Patient states she has no appetite. States she has been having watery bowel movements. She denies any nausea or vomiting. Denies fever or chills. Patient denies any recent rash, shortness breath, chest pain, constipation, hematochezia, melena, back pain, numbness, tingling, dizziness, weakness, hematuria, dysuria, urinary urgency, urinary frequency, headache, visual changes, or any other complaints. (Angelic Fitzgerald) - Related Data Home Medications Medication Instructions Recorded Confirmed Gabapentin 800 mg PO TID 03/30/15 05/26/18 Albuterol Inhaler [Ventolin Hfa 2 puff INHALATION RT-Q6H PRN 11/28/15 05/26/18 Inhaler] Cyclobenzaprine [Flexeril] 10 mg PO BID 08/05/16 05/26/18 Budesonide/Formoterol Fumarate 2 puff INHALATION RT-BID 01/22/18 05/26/18 [Symbicort 80-4.5 Mcg Inhaler] Ferrous Sulfate [Feosol] 325 mg PO TID 01/22/18 05/26/18 Metoclopramide HCl [Reglan] 5 mg PO DAILY PRN 01/22/18 05/26/18 Metoprolol Succinate [Toprol XL] 50 mg PO DAILY 01/22/18 05/26/18 Nitroglycerin Sl Tabs [Nitrostat] 0.4 mg PO Q5M PRN 01/22/18 05/26/18 SUMAtriptan SUCCINATE [Imitrex] 50 mg PO ONCE PRN 01/22/18 05/26/18 Vit B Complx C/Folic Acid/Zinc 1 tab PO DAILY 03/04/18 05/26/18 [Renaplex Tablet] Zinc 50 mg PO DAILY 03/04/18 05/26/18 rOPINIRole HCL [Requip] 2 mg PO TID 03/21/18 05/26/18 Cholecalciferol (Vitamin D3) 10,000 unit PO DAILY 03/23/18 05/26/18 [Vitamin D3] Magnesium Oxide 400 mg PO DAILY 03/23/18 05/26/18 Previous Rx's Medication Instructions Recorded Omeprazole 40 mg PO DAILY #14 capsule. 04/02/18 Ondansetron Odt [Zofran ODT] 4 mg PO Q8HR PRN #10 tab 04/02/18 Furosemide [Lasix] 20 mg PO DAILY #0 05/28/18 Lisinopril [Zestril] 5 mg PO DAILY #0 05/28/18 Polyethylene Glycol 3350 [Miralax] 17 gm PO DAILY PRN #15 packet 05/28/18 Allergies Allergy/AdvReac Type Severity Reaction Status Date / Time Sulfa (Sulfonamide Allergy Severe Anaphylaxis Verified 05/26/18 08:38 Antibiotics) adhesive tape Allergy BLISTERS Verified 05/26/18 08:38 amoxicillin [From Augmentin] Allergy Rash/Hives Verified 05/26/18 08:38 clavulanic acid Allergy Rash/Hives Verified 05/26/18 08:38 [From Augmentin] codeine Allergy ABDOMINAL Verified 05/26/18 08:38 PAIN, MIGRAINE HEADACHE morphine Allergy Itching Verified 05/26/18 08:38 Penicillins Allergy Rash/Hives Verified 05/26/18 08:38 adhesive AdvReac Itching Verified 05/26/18 08:38 artificial sweetners Allergy Nausea, Uncoded 05/25/18 22:27 MIGRAINE HEADACHE Review of Systems ROS Other: All systems not noted in ROS Statement are negative. <Angelic Fitzgerald - Last Filed: 05/26/18 03:03> ROS Other: All systems not noted in ROS Statement are negative. <Tristan Navarro - Last Filed: 05/29/18 08:48> ROS Statement: Those systems with pertinent positive or pertinent negative responses have been documented in the HPI. Past Medical History Past Medical History: Asthma, Blood Disorder, Chest Pain / Angina, COPD, Diabetes Mellitus, Fibromyalgia, GERD/Reflux, Hearing Disorder / Deafness, Hyperlipidemia, Hypertension, Liver Disease, Mitral Valve Prolapse (MVP), Musculoskeletal Disorder, Osteoarthritis (OA), Pneumonia, Respiratory Disorder, Sleep Apnea/CPAP/BIPAP Additional Past Medical History / Comment(s): 01-22-18 pt wants flu vaccine while here. MIGRAINES, DEGENERATIVE DISC DISEASE, FATTY LIVER, LEIDEN FACTOR 5, OCCASIONAL SWELLING IN LOWER EXT.NEUROPATHY, RLS, diabetes is in remission since surgery, chronic back pain, PATIENT HAS BEEN OFF MEDS FOR DIABETES SINCE BARIATRIC SURGERY History of Any Multi-Drug Resistant Organisms: None Reported Past Surgical History: Adenoidectomy, Appendectomy, Bariatric Surgery, Bowel Resection, Breast Surgery, Section, Cholecystectomy, Ear Surgery, Heart Catheterization, Hernia Repair, Orthopedic Surgery, Tonsillectomy Additional Past Surgical History / Comment(s): ARTHROSCOPY RT KNEE X3, RT BREAST BX-NEG, (13) MYRINGOTOMYS. laparoscopic danielle-en-y with lysis of adhesions 2013; Surgical wound debridement x3 ; SX TO REMOVED SCAR TISSUE FROM PREVIOUS ABD SX;EGD ; LAP EXAM- APPY SMALL BOWEL OBSTRUCTION LYSIS OFF ADHESIONS, 3 hernia repairs, 3 bowel resection, 07/2016 colon resection, adhesions removed 03/2018 Past Anesthesia/Blood Transfusion Reactions: No Reported Reaction Additional Past Anesthesia/Blood Transfusion Reaction / Comment(s): SEVERE HEADACHE AFTER LAST SCOPE, clausterphobia Past Psychological History: Anxiety, Bipolar, Depression, PTSD Smoking Status: Former smoker Past Alcohol Use History: None Reported Past Drug Use History: None Reported - Past Family History Mother Family Medical History: Deep Vein Thrombosis (DVT), Hypertension, Pulmonary Embolus, Thyroid Disorder Additional Family Medical History / Comment(s): FACTOR 5 LEIDEN, MVP Father Family Medical History: Diabetes Mellitus, Hypertension, Myocardial Infarction ([place]) Additional Family Medical History / Comment(s): AGE 59 [place] <Angelic Fitzgerald - Last Filed: 05/26/18 03:03> General Exam Limitations: no limitations General appearance: alert, in no apparent distress, other (Physical well-developed, well-nourished adult female patient in no acute distress. Vital signs upon presentation are temperature 98.3F, pulse 85, respirations 18, blood pressure 193/90, pulse ox 100% on room air.) Eye exam: Present: normal appearance, PERRL, EOMI. Absent: scleral icterus, conjunctival injection, periorbital swelling ENT exam: Present: normal exam, normal oropharynx, mucous membranes moist Respiratory exam: Present: normal lung sounds bilaterally. Absent: respiratory distress, wheezes, rales, rhonchi, stridor Cardiovascular Exam: Present: regular rate, normal rhythm, normal heart sounds. Absent: systolic murmur, diastolic murmur, rubs, gallop, clicks GI/Abdominal exam: Present: soft, tenderness (Left upper quadrant tenderness), normal bowel sounds. Absent: distended, guarding, rebound, rigid Neurological exam: Present: alert, oriented X3, CN II-XII intact Psychiatric exam: Present: normal affect, normal mood Skin exam: Present: warm, dry, intact, normal color. Absent: rash <Bantle,Angelic M - Last Filed: 05/26/18 03:03> Course Vital Signs 05/25/18 05/25/18 05/26/18 22:24 23:32 00:00 Temperature 98.3 F Pulse Rate 85 Respiratory 18 Rate Blood Pressure 193/90 187/85 O2 Sat by Pulse 100 92 L 98 Oximetry 05/26/18 05/26/18 05/26/18 00:02 00:30 00:47 Temperature Pulse Rate 74 77 Respiratory 18 18 Rate Blood Pressure 186/97 186/97 183/96 O2 Sat by Pulse 97 96 99 Oximetry 05/26/18 05/26/18 05/26/18 01:00 01:30 03:32 Temperature 98.4 F Pulse Rate 70 Respiratory 17 Rate Blood Pressure 183/96 167/88 165/80 O2 Sat by Pulse 96 96 98 Oximetry 05/26/18 05/26/18 04:35 06:37 Temperature 98.0 F 98.2 F Pulse Rate 92 85 Respiratory 18 17 Rate Blood Pressure 145/87 163/89 O2 Sat by Pulse 94 L 97 Oximetry Medical Decision Making - Lab Data Result diagrams: 05/25/18 22:59 05/25/18 22:59 - Radiology Data Radiology results: report reviewed, image reviewed <Angelic Fitzgerald - Last Filed: 05/26/18 03:03> - Lab Data Result diagrams: 05/28/18 08:38 05/28/18 08:38 <Tristan Navarro - Last Filed: 05/29/18 08:48> - Medical Decision Making 47-year-old female patient presents to the emergency department today for evaluation of left upper quadrant abdominal pain. Patient reports is a sharp stabbing pain similar to previous episodes she has had. Physical examination does reveal tenderness to the left upper quadrant. Labs reviewed and are unremarkable. KUB x-ray showed nonspecific bowel gas pattern. Patient was given a couple doses of Dilaudid and nausea medication but persisted to have severe pain in nausea so we did perform CT of the abdomen and pelvis which showed no acute abnormalities. Patient was given additional pain medication but remains in pain so admitted to the hospital intractable abdominal pain and have her evaluated by her surgeon Dr. Dumont. (Angelic Fitzgerald) I saw this patient in conjunction with the physician secretary administrative assistant. I performed independent history and physical exam. Agree with case management. (Tristan Navarro) - Lab Data Lab Results 05/25/18 05/25/18 05/25/18 Range/Units 22:59 22:59 22:59 WBC 9.7 (3.8-10.6) k/uL RBC 4.16 (3.80-5.40) m/uL Hgb 10.3 L (11.4-16.0) gm/dL Hct 30.3 L (34.0-46.0) % MCV 72.9 L D (80.0-100.0) fL MCH 24.8 L (25.0-35.0) pg MCHC 34.0 (31.0-37.0) g/dL RDW 16.7 H (11.5-15.5) % Plt Count 278 (150-450) k/uL Neutrophils % 63 % Lymphocytes % 28 % Monocytes % 4 % Eosinophils % 2 % Basophils % 1 % Neutrophils # 6.1 (1.3-7.7) k/uL Lymphocytes # 2.7 (1.0-4.8) k/uL Monocytes # 0.4 (0-1.0) k/uL Eosinophils # 0.2 (0-0.7) k/uL Basophils # 0.1 (0-0.2) k/uL Anisocytosis Slight Microcytosis Moderate Sodium 138 (137-145) mmol/L Potassium 4.4 (3.5-5.1) mmol/L Chloride 105 (98-107) mmol/L Carbon Dioxide 24 (22-30) mmol/L Anion Gap 9 mmol/L BUN 14 (7-17) mg/dL Creatinine 0.52 (0.52-1.04) mg/dL Est GFR (CKD-EPI)AfAm >90 (>60 ml/min/1.73 sqM) Est GFR (CKD-EPI)NonAf >90 (>60 ml/min/1.73 sqM) Glucose 111 H (74-99) mg/dL Plasma Lactic Acid Esteban 0.9 (0.7-2.0) mmol/L Calcium 8.9 (8.4-10.2) mg/dL Total Bilirubin 0.6 (0.2-1.3) mg/dL AST 19 (14-36) U/L ALT 23 (9-52) U/L Alkaline Phosphatase 129 H (38-126) U/L Total Protein 6.9 (6.3-8.2) g/dL Albumin 4.0 (3.5-5.0) g/dL Amylase 52 (30-110) U/L Lipase 57 (23-300) U/L Urine Color Urine Appearance (Clear) Urine pH (5.0-8.0) Ur Specific [place] (1.001-1.035) Urine Protein (Negative) Urine Glucose (UA) (Negative) Urine Ketones (Negative) Urine Blood (Negative) Urine Nitrite (Negative) Urine Bilirubin (Negative) Urine Urobilinogen (<2.0) mg/dL Ur Leukocyte Esterase (Negative) Urine HCG, Qual (Not Detectd) 05/25/18 05/25/18 Range/Units 23:24 23:24 WBC (3.8-10.6) k/uL RBC (3.80-5.40) m/uL Hgb (11.4-16.0) gm/dL Hct (34.0-46.0) % MCV (80.0-100.0) fL MCH (25.0-35.0) pg MCHC (31.0-37.0) g/dL RDW (11.5-15.5) % Plt Count (150-450) k/uL Neutrophils % % Lymphocytes % % Monocytes % % Eosinophils % % Basophils % % Neutrophils # (1.3-7.7) k/uL Lymphocytes # (1.0-4.8) k/uL Monocytes # (0-1.0) k/uL Eosinophils # (0-0.7) k/uL Basophils # (0-0.2) k/uL Anisocytosis Microcytosis Sodium (137-145) mmol/L Potassium (3.5-5.1) mmol/L Chloride (98-107) mmol/L Carbon Dioxide (22-30) mmol/L Anion Gap mmol/L BUN (7-17) mg/dL Creatinine (0.52-1.04) mg/dL Est GFR (CKD-EPI)AfAm (>60 ml/min/1.73 sqM) Est GFR (CKD-EPI)NonAf (>60 ml/min/1.73 sqM) Glucose (74-99) mg/dL Plasma Lactic Acid Esteban (0.7-2.0) mmol/L Calcium (8.4-10.2) mg/dL Total Bilirubin (0.2-1.3) mg/dL AST (14-36) U/L ALT (9-52) U/L Alkaline Phosphatase (38-126) U/L Total Protein (6.3-8.2) g/dL Albumin (3.5-5.0) g/dL Amylase (30-110) U/L Lipase (23-300) U/L Urine Color Yellow Urine Appearance Clear (Clear) Urine pH 6.5 (5.0-8.0) Ur Specific [place] 1.018 (1.001-1.035) Urine Protein Negative (Negative) Urine Glucose (UA) Negative (Negative) Urine Ketones Negative (Negative) Urine Blood Negative (Negative) Urine Nitrite Negative (Negative) Urine Bilirubin Negative (Negative) Urine Urobilinogen 4.0 (<2.0) mg/dL Ur Leukocyte Esterase Negative (Negative) Urine HCG, Qual Not Detected (Not Detectd) - Radiology Data CT abdomen and pelvis with contrast was obtained. Report was reviewed in its entirety. Impression by Dr. Knight shows no acute findings or substantial change. (Angelic Fitzgerald) Disposition Decision to Admit Reason: Admit from EC Decision Date: 05/26/18 Decision Time: 03:01 <Angelic Fitzgerald - Last Filed: 05/26/18 03:03> <Tristan Navarro - Last Filed: 05/29/18 08:48> Clinical Impression: Intractable abdominal pain Disposition: ADMITTED IP TO THIS [facility] Condition: Serious
--- NOTE | 2018-05-26 02:09 | CT ---
EXAM: CT Abdomen and Pelvis With Intravenous Contrast CLINICAL HISTORY: Patient presents with left sided abdominal pain. Prior on pacs. . TECHNIQUE: Axial computed tomography images of the abdomen and pelvis with 100mL of isovue 300 intravenous contrast. DLP is 1724.1 mGy-cm. This CT exam was performed using one or more of the following dose reduction techniques: automated exposure control, adjustment of the mA and/or kV according to patient size, and/or use of iterative reconstruction technique. Coronal and sagittal reconstructions are performed COMPARISON: 04/23/18 FINDINGS: Lung bases: Unremarkable. No mass. No consolidation. ABDOMEN: Liver: Unremarkable. No mass. Gallbladder and bile ducts: Cholecystectomy clips. No ductal dilation. Pancreas: Unremarkable. No mass. No ductal dilation. Spleen: Unremarkable. No splenomegaly. Adrenals: Unremarkable. No mass. Kidneys and ureters: Subcentimeter upper pole left renal cyst, too small to characterize No hydronephrosis. Stomach and bowel: Small Bowel anastomosis of central abdomen. No obstruction. No mucosal thickening. PELVIS: Appendix: No findings to suggest acute appendicitis. Bladder: Unremarkable. No mass. Reproductive: Unremarkable as visualized. ABDOMEN and PELVIS: Intraperitoneal space: Unremarkable. No free air. No significant fluid collection. Bones/joints: Mild degenerative changes. Soft tissues: Unremarkable. Vasculature: Unremarkable. No abdominal aortic aneurysm. Lymph nodes: Unremarkable. No enlarged lymph nodes. IMPRESSION: No acute findings or substantial change.
[2018-05-26] MEDS ORDERED: METOCLOPRAMIDE 5 MG/ML 2 ML VIAL IVP STA (02:46)
[2018-05-26] MEDS ORDERED: NALOXONE 0.4 MG/ML 1 ML VIAL IV PRN (03:01)
[2018-05-26] MEDS: SODIUM CHLORIDE 0.9% 1,000 ML IV SCH ×2 (05:20→23:29)
[2018-05-26] MEDS: HYDROmorphone 1 MG/ML 1 ML SYRINGE IVP PRN ×4 (07:17→23:17)
[2018-05-26] MEDS: ONDANSETRON 4 MG/2 ML VIAL IVP PRN ×2 (09:19→16:03)
[2018-05-26] MEDS ORDERED: ALBUTEROL NEBULIZED 2.5 MG/3 ML INHALATION PRN (11:27)
[2018-05-26] MEDS ORDERED: NITROGLYCERIN SL TABS 0.4 MG TAB SUBLINGUAL PRN (11:31)
[2018-05-26] MEDS ORDERED: NON-FORMULARY DRUG (Omeprazole [Omeprazole] 40 MG) PO SCH (11:45)
[2018-05-26] MEDS: METOPROLOL SUCCINATE (ER) 50 MG TAB.ER.24H PO SCH (13:04)
[2018-05-26] MEDS: PANTOPRAZOLE 40 MG/10 ML VIAL IVP SCH (13:04)
[2018-05-26] MEDS: FUROSEMIDE 20 MG TAB PO SCH (13:05)
[2018-05-26] MEDS: LISINOPRIL 10 MG TAB PO SCH (13:05)
--- NOTE | 2018-05-26 14:08 | P.GSCN ---
History of Present Illness Consult date: 05/26/18 Reason for Consult: abdominal pain Requesting physician: Angelic Fitzgerald History of present illness: CHIEF COMPLAINT: abdominal pain HISTORY OF PRESENT ILLNESS: 47-year-old female who recently underwent laparoscopic lysis of adhesions on with Dr. Dumont. Patient reports she was having diarrhea for the first few weeks after surgery so she decided to eat alot of bread and thought that would help her stools. She reports she became constipated after that. She reports loose stools that started yesterday. No further stools since yesterday. Denies nausea or vomiting. She states she began having left lower quadrant abdominal pain yesterday that spread to the left upper quadrant. She states "it felt like someone was flipping my intestines all around". PAST MEDICAL HISTORY: See list. PAST SURGICAL HISTORY: See list. SOCIAL HISTORY: No illicit drug use. REVIEW OF SYSTEMS: CONSTITUTIONAL: Denies fever or chills. HEENT: Denies blurred vision, vision changes, or eye pain. Denies hemoptysis CARDIOVASCULAR: Denies chest pain or pressure. RESPIRATORY: No shortness of breath. GASTROINTESTINAL: Refer to HPI for pertinent findings HEMATOLOGIC: Denies bleeding disorders. GENITOURINARY: Denies any blood in urine. SKIN: Denies pruitis. Denies rash. PHYSICAL EXAM: VITAL SIGNS: Reviewed. GENERAL: Well-developed in no acute distress. HEENT: No sclera icterus. Extraocular movements grossly intact. Moist buccal mucosa. Head is atraumatic, normocephalic. ABDOMEN: Obese. Soft. Nondistended. Mild tenderness upon palpation of left lower quadrant. Healing surgical sites without drainage. NEUROLOGIC: Alert and oriented. Cranial nerves II through XII grossly intact. IMAGING: Per radiology dictation: 1. KUB xray: Nonspecific bowel gas pattern. Moderate amount of stool in the colon. 2. CT abdomen and pelvis: No acute findings ASSESSMENT: 1. Acute on chronic abdominal pain 2. History of constipation, xray shows moderate amount of stool in colon 3. History of laparoscopic lysis of adhesions on PLAN: Case discussed with Dr. Dumont. Patients pain may be secondary to constipation as xray shows moderate stool in colon. Fleets enema x 1. Will begin clear liquid diet. Advance as tolerated. No surgical intervention recommended. Nurse practitioner note has been reviewed by physician. Signing provider agrees with the documented findings, assessment, and plan of care. Past Medical History Past Medical History: Asthma, Blood Disorder, Chest Pain / Angina, COPD, Diabetes Mellitus, Fibromyalgia, GERD/Reflux, Hearing Disorder / Deafness, Hyperlipidemia, Hypertension, Liver Disease, Mitral Valve Prolapse (MVP), Musculoskeletal Disorder, Osteoarthritis (OA), Pneumonia, Respiratory Disorder, Sleep Apnea/CPAP/BIPAP Additional Past Medical History / Comment(s): MIGRAINES, DEGENERATIVE DISC DISEASE, FATTY LIVER, LEIDEN FACTOR 5, OCCASIONAL SWELLING IN LOWER EXT.NEUROPATHY, RLS, diabetes is in remission since surgery, chronic back pain, PATIENT HAS BEEN OFF MEDS FOR DIABETES SINCE BARIATRIC SURGERY History of Any Multi-Drug Resistant Organisms: None Reported Past Surgical History: Adenoidectomy, Appendectomy, Bariatric Surgery, Bowel Resection, Breast Surgery, Section, Cholecystectomy, Ear Surgery, Heart Catheterization, Hernia Repair, Orthopedic Surgery, Tonsillectomy Additional Past Surgical History / Comment(s): ARTHROSCOPY RT KNEE X3, RT BREAST BX-NEG, (13) MYRINGOTOMYS. laparoscopic danielle-en-y with lysis of adhesions 2013; Surgical wound debridement x3 ; SX TO REMOVED SCAR TISSUE FROM PREVIOUS ABD SX;EGD ; LAP EXAM- APPY SMALL BOWEL OBSTRUCTION LYSIS OFF ADHESIONS, 3 hernia repairs, 3 bowel resection, 07/2016 colon resection, adhesions removed 03/2018 Past Anesthesia/Blood Transfusion Reactions: No Reported Reaction Additional Past Anesthesia/Blood Transfusion Reaction / Comm: SEVERE HEADACHE AFTER LAST SCOPE, clausterphobia Past Psychological History: Anxiety, Bipolar, Depression, PTSD Additional Psychological History / Comment(s): SOCIAL PHOBIA. pt lives with nestor and a special needs son. has cpap machine and cane that she uses as needed Smoking Status: Former smoker Past Alcohol Use History: None Reported Additional Past Alcohol Use History / Comment(s): OCC CIG USE IN PAST age 20 to age 21- ONE CIG PER MONTH OR LESS Past Drug Use History: None Reported - Past Family History Mother Family Medical History: Deep Vein Thrombosis (DVT), Hypertension, Pulmonary Embolus, Thyroid Disorder Additional Family Medical History / Comment(s): FACTOR 5 LEIDEN, MVP Father Family Medical History: Diabetes Mellitus, Hypertension, Myocardial Infarction ([place]) Additional Family Medical History / Comment(s): AGE 59 [place] Medications and Allergies Home Medications Medication Instructions Recorded Confirmed Type Gabapentin 800 mg PO TID 03/30/15 05/26/18 History Albuterol Inhaler [Ventolin Hfa 2 puff INHALATION RT-Q6H PRN 11/28/15 05/26/18 History Inhaler] Cyclobenzaprine [Flexeril] 10 mg PO BID 08/05/16 05/26/18 History Budesonide/Formoterol Fumarate 2 puff INHALATION RT-BID 01/22/18 05/26/18 History [Symbicort 80-4.5 Mcg Inhaler] Ferrous Sulfate [Feosol] 325 mg PO TID 01/22/18 05/26/18 History Furosemide [Lasix] 20 mg PO DAILY 01/22/18 05/26/18 History Lisinopril [Zestril] 10 mg PO DAILY 01/22/18 05/26/18 History Metoclopramide HCl [Reglan] 5 mg PO DAILY PRN 01/22/18 05/26/18 History Metoprolol Succinate [Toprol XL] 50 mg PO DAILY 01/22/18 05/26/18 History Nitroglycerin Sl Tabs [Nitrostat] 0.4 mg PO Q5M PRN 01/22/18 05/26/18 History SUMAtriptan SUCCINATE [Imitrex] 50 mg PO ONCE PRN 01/22/18 05/26/18 History Vit B Complx C/Folic Acid/Zinc 1 tab PO DAILY 03/04/18 05/26/18 History [Renaplex Tablet] Zinc 50 mg PO DAILY 03/04/18 05/26/18 History rOPINIRole HCL [Requip] 2 mg PO TID 03/21/18 05/26/18 History Cholecalciferol (Vitamin D3) 10,000 unit PO DAILY 03/23/18 05/26/18 History [Vitamin D3] Magnesium Oxide 400 mg PO DAILY 03/23/18 05/26/18 History Omeprazole 40 mg PO DAILY #14 capsule. 04/02/18 05/26/18 Rx Ondansetron Odt [Zofran ODT] 4 mg PO Q8HR PRN #10 tab 04/02/18 05/26/18 Rx Allergies Allergy/AdvReac Type Severity Reaction Status Date / Time Sulfa (Sulfonamide Allergy Severe Anaphylaxis Verified 05/26/18 08:38 Antibiotics) adhesive tape Allergy BLISTERS Verified 05/26/18 08:38 amoxicillin [From Augmentin] Allergy Rash/Hives Verified 05/26/18 08:38 clavulanic acid Allergy Rash/Hives Verified 05/26/18 08:38 [From Augmentin] codeine Allergy ABDOMINAL Verified 05/26/18 08:38 PAIN, MIGRAINE HEADACHE morphine Allergy Itching Verified 05/26/18 08:38 Penicillins Allergy Rash/Hives Verified 05/26/18 08:38 adhesive AdvReac Itching Verified 05/26/18 08:38 artificial sweetners Allergy Nausea, Uncoded 05/25/18 22:27 MIGRAINE HEADACHE Surgical - Exam Vital Signs Temp Pulse Resp BP Pulse Ox 98.3 F 85 18 193/90 100 05/25/18 22:24 05/25/18 22:24 05/25/18 22:24 05/25/18 22:24 05/25/18 22:24 Results - Labs 05/25/18 22:59 05/25/18 22:59 Abnormal Lab Results - Last 24 Hours (Table) 05/25/18 05/25/18 Range/Units 22:59 22:59 Hgb 10.3 L (11.4-16.0) gm/dL Hct 30.3 L (34.0-46.0) % MCV 72.9 L D (80.0-100.0) fL MCH 24.8 L (25.0-35.0) pg RDW 16.7 H (11.5-15.5) % Glucose 111 H (74-99) mg/dL Alkaline Phosphatase 129 H (38-126) U/L Diabetes panel 05/25/18 Range/Units 22:59 Sodium 138 (137-145) mmol/L Potassium 4.4 (3.5-5.1) mmol/L Chloride 105 (98-107) mmol/L Carbon Dioxide 24 (22-30) mmol/L BUN 14 (7-17) mg/dL Creatinine 0.52 (0.52-1.04) mg/dL Glucose 111 H (74-99) mg/dL Calcium 8.9 (8.4-10.2) mg/dL AST 19 (14-36) U/L ALT 23 (9-52) U/L Alkaline Phosphatase 129 H (38-126) U/L Total Protein 6.9 (6.3-8.2) g/dL Albumin 4.0 (3.5-5.0) g/dL Calcium panel 05/25/18 Range/Units 22:59 Calcium 8.9 (8.4-10.2) mg/dL Albumin 4.0 (3.5-5.0) g/dL Pituitary panel 05/25/18 Range/Units 22:59 Sodium 138 (137-145) mmol/L Potassium 4.4 (3.5-5.1) mmol/L Chloride 105 (98-107) mmol/L Carbon Dioxide 24 (22-30) mmol/L BUN 14 (7-17) mg/dL Creatinine 0.52 (0.52-1.04) mg/dL Glucose 111 H (74-99) mg/dL Calcium 8.9 (8.4-10.2) mg/dL Adrenal panel 05/25/18 Range/Units 22:59 Sodium 138 (137-145) mmol/L Potassium 4.4 (3.5-5.1) mmol/L Chloride 105 (98-107) mmol/L Carbon Dioxide 24 (22-30) mmol/L BUN 14 (7-17) mg/dL Creatinine 0.52 (0.52-1.04) mg/dL Glucose 111 H (74-99) mg/dL Calcium 8.9 (8.4-10.2) mg/dL Total Bilirubin 0.6 (0.2-1.3) mg/dL AST 19 (14-36) U/L ALT 23 (9-52) U/L Alkaline Phosphatase 129 H (38-126) U/L Total Protein 6.9 (6.3-8.2) g/dL Albumin 4.0 (3.5-5.0) g/dL Assessment and Plan (1) Constipation Current Visit: Yes Status: Acute Code(s): K59.00 - CONSTIPATION, UNSPECIFIED SNOMED Code(s): 40718323 (2) Intractable abdominal pain Current Visit: Yes Status: Acute Code(s): R10.9 - UNSPECIFIED ABDOMINAL PAIN SNOMED Code(s): 05592838 (3) Chronic abdominal pain Current Visit: No Status: Acute Code(s): R10.9 - UNSPECIFIED ABDOMINAL PAIN; G89.29 - OTHER CHRONIC PAIN SNOMED Code(s): 249148296 (4) Left lower quadrant pain Current Visit: No Status: Acute Code(s): R10.32 - LEFT LOWER QUADRANT PAIN SNOMED Code(s): 414753506 (5) Left upper quadrant pain Current Visit: No Status: Acute Code(s): R10.12 - LEFT UPPER QUADRANT PAIN SNOMED Code(s): 304236532 (6) Chronic pain syndrome Current Visit: No Status: Chronic Code(s): G89.4 - CHRONIC PAIN SYNDROME SNOMED Code(s): 169824453 (7) Morbid obesity with BMI of 40.0-44.9, adult Current Visit: No Status: Chronic Code(s): E66.01 - MORBID (SEVERE) OBESITY DUE TO EXCESS CALORIES SNOMED Code(s): 781088736
[2018-05-26] MEDS ORDERED: NA PHOS,M-B/NA PHOS,DI-BA 133 ML ENEMA RECTAL ONE (14:15)
[2018-05-26] MEDS: GABAPENTIN 400 MG CAP PO SCH ×2 (16:04→23:16)
[2018-05-26] MEDS: FERROUS SULFATE 325 MG TAB PO SCH ×2 (16:05→23:16)
--- NOTE | 2018-05-26 18:50 | P.PN ---
Progress Note - Text Progress Note Date: 05/26/18 Intermittent sigmoid volvulus. Recommend fiber diet 25g. Miralax. Clear liquid diet. No surgical intervention
[2018-05-26] MEDS: SYMBICORT 80-4.5 MCG INHALER INHALATION SCH (19:44)
[2018-05-26] MEDS: POLYETHYLENE GLYCOL 3350 17 GM POWD.PACK PO SCH (20:54)
[2018-05-26] MEDS: CYCLOBENZAPRINE 10 MG TAB PO SCH (23:16)
--- NOTE | 2018-05-26 23:51 | P.HPIM ---
History of Present Illness H&P Date: 05/26/18 Chief Complaint: Abdominal pain Patient is a 47 old female with a known history of Asthma, Blood Disorder, Chest Pain / Angina, COPD, Diabetes Mellitus, Fibromyalgia, GERD/Reflux, Hearing Disorder / Deafness, Hyperlipidemia, Hypertension, Liver Disease, Mitral Valve Prolapse (MVP), Musculoskeletal Disorder, Osteoarthritis (OA), Pneumonia, Respiratory Disorder, Sleep Apnea/CPAP/BIPAP And recent laparoscopic lysis of adhesions on 04/24/2018, history of bowel adhesions, and Barb-en-Y gastric bypass surgery came to ER with the complaints of abdominal pain mainly in the left lower quadrant. Patient has been having acute on chronic abdominal pain. Patient had previous episodes with similar symptoms. Patient says that she's been having constant and severe pain and now. Patient does have nausea. No episodes of vomiting. Denied any fever or chills. Denied any blood in the stool. No commerce of chest pain or shortness of breath. No hematemesis or melena. No dysuria or hematuria. No increased frequency of urination. Denied any other problems CT abdominal pelvis showed no acute changes noted. KUB x-ray showed nonspecific bowel gas pattern. Moderate amount of stool in the colon. No dilation. Hemoglobin 10.3. Microcytic. UA negative for infection Review of Systems Constitutional: Patient denies any fever or chills . No generalized weakness or weight loss. Abdomen: Agent does have abdominal pain and nausea. No diarrhea. Does have constipation.. Cardiovascular: Patient denies any chest pain or short of breath no palpitations. Respiratory: patient denied any cough is from production. No shortness of breath Neurologic: Patient denied any numbness or tingling headache. Musculoskeletal: Patient denies any complaints of joint swelling or deformity. Skin: Negative Psychiatric: Negative Endocrine: No heat or cold intolerance. No recent weight gain. Genitourinary: No dysuria or hematuria. All other 14 point ROS negative except the above Past Medical History Past Medical History: Asthma, Blood Disorder, Chest Pain / Angina, COPD, Diabetes Mellitus, Fibromyalgia, GERD/Reflux, Hearing Disorder / Deafness, Hyperlipidemia, Hypertension, Liver Disease, Mitral Valve Prolapse (MVP), Musculoskeletal Disorder, Osteoarthritis (OA), Pneumonia, Respiratory Disorder, Sleep Apnea/CPAP/BIPAP Additional Past Medical History / Comment(s): MIGRAINES, DEGENERATIVE DISC DISEASE, FATTY LIVER, LEIDEN FACTOR 5, OCCASIONAL SWELLING IN LOWER EXT.NEUROPATHY, RLS, diabetes is in remission since surgery, chronic back pain, PATIENT HAS BEEN OFF MEDS FOR DIABETES SINCE BARIATRIC SURGERY History of Any Multi-Drug Resistant Organisms: None Reported Past Surgical History: Adenoidectomy, Appendectomy, Bariatric Surgery, Bowel Resection, Breast Surgery, Section, Cholecystectomy, Ear Surgery, Heart Catheterization, Hernia Repair, Orthopedic Surgery, Tonsillectomy Additional Past Surgical History / Comment(s): ARTHROSCOPY RT KNEE X3, RT BREAST BX-NEG, (13) MYRINGOTOMYS. laparoscopic brab-en-y with lysis of adhesions 2013; Surgical wound debridement x3 ; SX TO REMOVED SCAR TISSUE FROM PREVIOUS ABD SX;EGD ; LAP EXAM- APPY SMALL BOWEL OBSTRUCTION LYSIS OFF ADHESIONS, 3 hernia repairs, 3 bowel resection, 07/2016 colon resection, adhesions removed 03/2018 Past Anesthesia/Blood Transfusion Reactions: No Reported Reaction Additional Past Anesthesia/Blood Transfusion Reaction / Comment(s): SEVERE HEADACHE AFTER LAST SCOPE, clausterphobia Past Psychological History: Anxiety, Bipolar, Depression, PTSD Additional Psychological History / Comment(s): SOCIAL PHOBIA. pt lives with nestor and a special needs son. has cpap machine and cane that she uses as needed Smoking Status: Former smoker Past Alcohol Use History: None Reported Additional Past Alcohol Use History / Comment(s): OCC CIG USE IN PAST age 20 to age 21- ONE CIG PER MONTH OR LESS Past Drug Use History: None Reported - Past Family History Mother Family Medical History: Deep Vein Thrombosis (DVT), Hypertension, Pulmonary Embolus, Thyroid Disorder Additional Family Medical History / Comment(s): FACTOR 5 LEIDEN, MVP Father Family Medical History: Diabetes Mellitus, Hypertension, Myocardial Infarction ([place]) Additional Family Medical History / Comment(s): AGE 59 [place] Medications and Allergies Home Medications Medication Instructions Recorded Confirmed Type Gabapentin 800 mg PO TID 03/30/15 05/26/18 History Albuterol Inhaler [Ventolin Hfa 2 puff INHALATION RT-Q6H PRN 11/28/15 05/26/18 History Inhaler] Cyclobenzaprine [Flexeril] 10 mg PO BID 08/05/16 05/26/18 History Budesonide/Formoterol Fumarate 2 puff INHALATION RT-BID 01/22/18 05/26/18 History [Symbicort 80-4.5 Mcg Inhaler] Ferrous Sulfate [Feosol] 325 mg PO TID 01/22/18 05/26/18 History Furosemide [Lasix] 20 mg PO DAILY 01/22/18 05/26/18 History Lisinopril [Zestril] 10 mg PO DAILY 01/22/18 05/26/18 History Metoclopramide HCl [Reglan] 5 mg PO DAILY PRN 01/22/18 05/26/18 History Metoprolol Succinate [Toprol XL] 50 mg PO DAILY 01/22/18 05/26/18 History Nitroglycerin Sl Tabs [Nitrostat] 0.4 mg PO Q5M PRN 01/22/18 05/26/18 History SUMAtriptan SUCCINATE [Imitrex] 50 mg PO ONCE PRN 01/22/18 05/26/18 History Vit B Complx C/Folic Acid/Zinc 1 tab PO DAILY 03/04/18 05/26/18 History [Renaplex Tablet] Zinc 50 mg PO DAILY 03/04/18 05/26/18 History rOPINIRole HCL [Requip] 2 mg PO TID 03/21/18 05/26/18 History Cholecalciferol (Vitamin D3) 10,000 unit PO DAILY 03/23/18 05/26/18 History [Vitamin D3] Magnesium Oxide 400 mg PO DAILY 03/23/18 05/26/18 History Omeprazole 40 mg PO DAILY #14 capsule. 04/02/18 05/26/18 Rx Ondansetron Odt [Zofran ODT] 4 mg PO Q8HR PRN #10 tab 04/02/18 05/26/18 Rx Allergies Allergy/AdvReac Type Severity Reaction Status Date / Time Sulfa (Sulfonamide Allergy Severe Anaphylaxis Verified 05/26/18 08:38 Antibiotics) adhesive tape Allergy BLISTERS Verified 05/26/18 08:38 amoxicillin [From Augmentin] Allergy Rash/Hives Verified 05/26/18 08:38 clavulanic acid Allergy Rash/Hives Verified 05/26/18 08:38 [From Augmentin] codeine Allergy ABDOMINAL Verified 05/26/18 08:38 PAIN, MIGRAINE HEADACHE morphine Allergy Itching Verified 05/26/18 08:38 Penicillins Allergy Rash/Hives Verified 05/26/18 08:38 adhesive AdvReac Itching Verified 05/26/18 08:38 artificial sweetners Allergy Nausea, Uncoded 05/25/18 22:27 MIGRAINE HEADACHE Physical Exam Vitals: Vital Signs Temp Pulse Pulse Resp BP BP BP 05/26/18 08:00 98.2 F 108 H 18 116/68 05/26/18 07:21 77 18 194/86 05/26/18 06:58 97.8 F 75 18 179/105 189/84 05/26/18 06:37 98.2 F 85 17 163/89 05/26/18 04:35 98.0 F 92 18 145/87 05/26/18 03:32 98.4 F 70 17 165/80 05/26/18 01:30 167/88 05/26/18 01:00 183/96 05/26/18 00:47 77 18 183/96 05/26/18 00:30 186/97 05/26/18 00:02 74 18 186/97 05/26/18 00:00 187/85 05/25/18 23:32 05/25/18 22:24 98.3 F 85 18 193/90 Pulse Ox 05/26/18 08:00 98 05/26/18 07:21 96 05/26/18 06:58 98 05/26/18 06:37 97 05/26/18 04:35 94 L 05/26/18 03:32 98 05/26/18 01:30 96 05/26/18 01:00 96 05/26/18 00:47 99 05/26/18 00:30 96 05/26/18 00:02 97 05/26/18 00:00 98 05/25/18 23:32 92 L 05/25/18 22:24 100 Intake and Output 05/25/18 05/26/18 05/26/18 22:59 06:59 14:59 Other: Voiding Method Bedpan Weight 108.4 kg PHYSICAL EXAMINATION: Patient is lying in the bed comfortably, no acute distress, awake alert and oriented. Anxious.. HEENT: Normocephalic. Neck is supple. Pupils reactive. Nostrils clear. Oral cavity is moist. Ears reveal no drainage. Neck reveals no JVD, carotid bruits, or thyromegaly. CHEST EXAMINATION: Trachea is central. Symmetrical expansion. Lung valdivia clear to auscultation and percussion. CARDIAC: Normal S1, S2 with no gallops. No murmurs ABDOMEN: Soft. Bowel sounds present. No organomegaly. No abdominal bruits. Extremities: reveal no edema. No clubbing or cyanosis Neurologically awake, alert, oriented x3 with well-coordinated movements. No focal deficits noted Skin: No rash or skin lesions. Psychiatric: Coperative. Nonsuicidal Musculoskeletal: No joint swelling or deformity. Normal range of motion. Results CBC & Chem 7: 05/25/18 22:59 05/25/18 22:59 Labs: Abnormal Lab Results - Last 24 Hours (Table) 05/25/18 05/25/18 Range/Units 22:59 22:59 Hgb 10.3 L (11.4-16.0) gm/dL Hct 30.3 L (34.0-46.0) % MCV 72.9 L D (80.0-100.0) fL MCH 24.8 L (25.0-35.0) pg RDW 16.7 H (11.5-15.5) % Glucose 111 H (74-99) mg/dL Alkaline Phosphatase 129 H (38-126) U/L Thrombosis Risk Factor Assmnt - DVT/VTE Prophylaxis DVT/VTE Prophylaxis: Pharmacologic Prophylaxis ordered - Choose All That Apply Any of the Below Risk Factors Present?: Yes Each Factor Represents 1 point: Age 41-60 years, Obesity (BMI >25) Each Risk Factor Represents 2 Points: Age 61-74 years, Arthroscopic surgery Other congenital or acquired thrombophilia - If yes, enter type in comment: No Thrombosis Risk Factor Assessment Total Risk Factor Score: 6 Thrombosis Risk Factor Assessment Level: High Risk Assessment and Plan Assessment: Acute on chronic abdominal pain Constipation with moderate amount of stool in the colon. Recent laparoscopic lysis of adhesions on 04/24/2018 Anxiety/depression and bipolar disorder and PTSD Previous history of smoking Microcytic iron deficiency anemia Uncontrolled hypertension Chronic medical problems include Asthma, Blood Disorder, Chest Pain / Angina, COPD, Diabetes Mellitus, Fibromyalgia, GERD/Reflux, Hearing Disorder / Deafness, Hyperlipidemia, Hypertension, Liver Disease, Mitral Valve Prolapse (MVP), Musculoskeletal Disorder, Osteoarthritis (OA), Pneumonia, Respiratory Disorder, Sleep Apnea/CPAP/BIPAP DVT prophylaxis. Heparin subcu Plan: Patient will be continued on gentle hydration. Continue with home blood pressure medications. Will hold ferrous sulfate tablets due to constipation and will consider IV iron dose. will try to limit narcotic pain medication use. Continue with home medications otherwise. General surgery is on board. Fleet enema was ordered. Further recommendations based on the clinical course. Time with Patient: Greater than 30
[2018-05-27] MEDS: HEPARIN SODIUM,PORCINE 5,000 UNIT/ML 1 ML VIAL SQ SCH ×4 (02:35→23:15)
[2018-05-27] MEDS: HYDROmorphone 1 MG/ML 1 ML SYRINGE IVP PRN ×5 (06:00→23:20)
[2018-05-27] MEDS: ONDANSETRON 4 MG/2 ML VIAL IVP PRN ×2 (06:09→19:57)
[2018-05-27] MEDS: SYMBICORT 80-4.5 MCG INHALER INHALATION SCH ×2 (07:32→20:21)
[2018-05-27] MEDS ORDERED: NON-FORMULARY DRUG (Zinc [Zinc] 50 MG) PO SCH (09:00)
[2018-05-27] MEDS ORDERED: VIT B COMPLX C PO SCH (09:00)
[2018-05-27] MEDS ORDERED: ZINC PO SCH (09:00)
[2018-05-27] MEDS ORDERED: FOLIC ACID PO SCH (09:00)
[2018-05-27] MEDS: GABAPENTIN 400 MG CAP PO SCH ×3 (09:25→23:15)
[2018-05-27] MEDS: CHOLECALCIFEROL 1,000 UNIT TAB PO SCH (09:25)
[2018-05-27] MEDS: LISINOPRIL 10 MG TAB PO SCH (09:25)
[2018-05-27] MEDS: METOPROLOL SUCCINATE (ER) 50 MG TAB.ER.24H PO SCH (09:25)
[2018-05-27] MEDS: POLYETHYLENE GLYCOL 3350 17 GM POWD.PACK PO SCH (09:25)
[2018-05-27] MEDS: CYCLOBENZAPRINE 10 MG TAB PO SCH ×2 (09:26→23:14)
[2018-05-27] MEDS: FUROSEMIDE 20 MG TAB PO SCH (09:26)
[2018-05-27] MEDS: MAGNESIUM OXIDE 400 MG TAB PO SCH (09:26)
[2018-05-27] MEDS: PANTOPRAZOLE 40 MG/10 ML VIAL IVP SCH (09:26)
--- NOTE | 2018-05-27 13:25 | P.PN ---
Subjective Progress Note Date: 05/27/18 CHIEF COMPLAINT: abdominal pain HISTORY OF PRESENT ILLNESS: Patient examined at the bedside. Patient continues to report abdominal pain. She is tolerating PO intake. Passing flatus. No BM. PHYSICAL EXAM: VITAL SIGNS: Reviewed. GENERAL: Well-developed in no acute distress. HEENT: No sclera icterus. Extraocular movements grossly intact. Moist buccal mucosa. Head is atraumatic, normocephalic. ABDOMEN: Obese. Soft. Nondistended. Mild tenderness upon palpation of left lower quadrant. Healing surgical sites without drainage. NEUROLOGIC: Alert and oriented. Cranial nerves II through XII grossly intact. ASSESSMENT: 1. Acute on chronic abdominal pain 2. History of constipation, xray shows moderate amount of stool in colon 3. History of laparoscopic lysis of adhesions on 4. Intermittent sigmoid volvulus PLAN: Continue Miralax. Dietitian on consult regarding education for high-fiber diet. Advance diet as tolerated. No surgical intervention recommended. Nurse practitioner note has been reviewed by physician. Signing provider agrees with the documented findings, assessment, and plan of care. Objective - Vital Signs Vital signs: Vital Signs Temp 98.6 F 05/27/18 08:00 Pulse 70 05/27/18 08:00 Resp 16 05/27/18 08:00 BP 109/57 05/27/18 08:00 Pulse Ox 99 05/27/18 08:00 Intake & Output 05/26/18 05/27/18 05/27/18 18:59 06:59 18:59 Intake Total 120 Balance 120 Weight 108 kg Intake: Oral 120 Other: Voiding Method Toilet Toilet # Voids 0 2 1 - Labs CBC & Chem 7: 05/25/18 22:59 05/25/18 22:59 Assessment and Plan (1) Constipation Current Visit: Yes Status: Acute Code(s): K59.00 - CONSTIPATION, UNSPECIFIED SNOMED Code(s): 05373461 (2) Intractable abdominal pain Current Visit: Yes Status: Acute Code(s): R10.9 - UNSPECIFIED ABDOMINAL PAIN SNOMED Code(s): 50906931 (3) Chronic abdominal pain Current Visit: No Status: Acute Code(s): R10.9 - UNSPECIFIED ABDOMINAL PAIN; G89.29 - OTHER CHRONIC PAIN SNOMED Code(s): 855665660 (4) Left lower quadrant pain Current Visit: No Status: Acute Code(s): R10.32 - LEFT LOWER QUADRANT PAIN SNOMED Code(s): 088236055 (5) Left upper quadrant pain Current Visit: No Status: Acute Code(s): R10.12 - LEFT UPPER QUADRANT PAIN SNOMED Code(s): 292489197 (6) Chronic pain syndrome Current Visit: No Status: Chronic Code(s): G89.4 - CHRONIC PAIN SYNDROME SNOMED Code(s): 997248096 (7) Morbid obesity with BMI of 40.0-44.9, adult Current Visit: No Status: Chronic Code(s): E66.01 - MORBID (SEVERE) OBESITY DUE TO EXCESS CALORIES SNOMED Code(s): 560671582
[2018-05-27] MEDS ORDERED: diphenhydrAMINE 50 MG/ML 1 ML VIAL IVP PRN (14:46)
[2018-05-27] MEDS: METOCLOPRAMIDE 5 MG TAB PO PRN (14:57)
[2018-05-27 15:27] VITALS: BMI 46.5
[2018-05-27] MEDS: SODIUM CHLORIDE 0.9% 1,000 ML IV SCH (23:13)
--- NOTE | 2018-05-28 01:33 | P.PN ---
Subjective Progress Note Date: 05/27/18 Principal diagnosis: Acute on chronic abdominal pain Constipation with moderate amount of stool in the colon Patient is a 47 old female with a known history of Asthma, Blood Disorder, Chest Pain / Angina, COPD, Diabetes Mellitus, Fibromyalgia, GERD/Reflux, Hearing Disorder / Deafness, Hyperlipidemia, Hypertension, Liver Disease, Mitral Valve Prolapse (MVP), Musculoskeletal Disorder, Osteoarthritis (OA), Pneumonia, Respiratory Disorder, Sleep Apnea/CPAP/BIPAP And recent laparoscopic lysis of adhesions on 04/24/2018, history of bowel adhesions, and Barb-en-Y gastric bypass surgery came to ER with the complaints of abdominal pain mainly in the left lower quadrant. Patient has been having acute on chronic abdominal pain. Patient had previous episodes with similar symptoms. Patient says that she's been having constant and severe pain and now. Patient does have nausea. No episodes of vomiting. Denied any fever or chills. Denied any blood in the stool. No commerce of chest pain or shortness of breath. No hematemesis or melena. No dysuria or hematuria. No increased frequency of urination. Denied any other problems CT abdominal pelvis showed no acute changes noted. KUB x-ray showed nonspecific bowel gas pattern. Moderate amount of stool in the colon. No dilation. Hemoglobin 10.3. Microcytic. UA negative for infection 05/27/2018 Patient is still complaining of abdominal pain not resolved. No bowel movement with Fleet enema. Patient is being continued on MiraLAX and pain management. Continue with IV hydration. Will increase normal saline 200 mL per hour. General surgery is following. No complaints of chest pain or short of breath. No headache or dizziness lightheadedness. No fever no chills. Patient does have nausea. No vomiting. Current medications reviewed Objective - Vital Signs Vital signs: Vital Signs Temp 98 F 05/27/18 13:31 Pulse 63 05/27/18 13:31 Resp 16 05/27/18 13:31 BP 130/74 05/27/18 13:31 Pulse Ox 95 05/27/18 13:31 Intake & Output 05/27/18 05/27/18 05/28/18 06:59 18:59 06:59 Intake Total 420 237 Balance 420 237 Weight 108 kg 108 kg Intake: Intake, IV Titration 300 Amount Sodium Chloride 0.9% 1, 300 000 ml @ 50 mls/hr IV . Q20H JERALD Rx#:[id number] Oral 120 237 Other: Voiding Method Toilet Toilet # Voids 2 2 - Exam PHYSICAL EXAMINATION: Patient is lying in the bed comfortably, no acute distress, awake alert and oriented. Anxious.. HEENT: Normocephalic. Neck is supple. Pupils reactive. Nostrils clear. Oral cavity is moist. Ears reveal no drainage. Neck reveals no JVD, carotid bruits, or thyromegaly. CHEST EXAMINATION: Trachea is central. Symmetrical expansion. Lung valdivia clear to auscultation and percussion. CARDIAC: Normal S1, S2 with no gallops. No murmurs ABDOMEN: Soft. Bowel sounds present. No organomegaly. No abdominal bruits. Extremities: reveal no edema. No clubbing or cyanosis Neurologically awake, alert, oriented x3 with well-coordinated movements. No focal deficits noted Skin: No rash or skin lesions. Psychiatric: Coperative. Nonsuicidal Musculoskeletal: No joint swelling or deformity. Normal range of motion. - Labs CBC & Chem 7: 05/25/18 22:59 05/25/18 22:59 Assessment and Plan Assessment: Acute on chronic abdominal pain Constipation with moderate amount of stool in the colon. Recent laparoscopic lysis of adhesions on 04/24/2018 Anxiety/depression and bipolar disorder and PTSD Previous history of smoking Microcytic iron deficiency anemia Uncontrolled hypertension Chronic medical problems include Asthma, Blood Disorder, Chest Pain / Angina, COPD, Diabetes Mellitus, Fibromyalgia, GERD/Reflux, Hearing Disorder / Deafness, Hyperlipidemia, Hypertension, Liver Disease, Mitral Valve Prolapse (MVP), Musculoskeletal Disorder, Osteoarthritis (OA), Pneumonia, Respiratory Disorder, Sleep Apnea/CPAP/BIPAP DVT prophylaxis. Heparin subcu Plan: Patient will be continued on gentle hydration. Continue with home blood pressure medications. Will hold ferrous sulfate tablets due to constipation and will consider IV iron dose. will try to limit narcotic pain medication use. Continue with home medications otherwise. General surgery is on board. Fleet enema was ordered. Continue with MiraLAX. Further recommendations based on the clinical course. Time with Patient: Greater than 30
[2018-05-28] MEDS: HYDROmorphone 1 MG/ML 1 ML SYRINGE IVP PRN ×2 (05:25→09:05)
[2018-05-28] MEDS: SODIUM CHLORIDE 0.9% 1,000 ML IV SCH ×2 (05:34→15:50)
[2018-05-28 05:43] VITALS: TEMP 98.4
[2018-05-28] MEDS: ONDANSETRON 4 MG/2 ML VIAL IVP PRN (05:48)
--- NOTE | 2018-05-28 08:11 | P.PN ---
Progress Note - Text Progress Note Date: 05/27/18 Patient does have improvement abdominal pain. More comfortable today. Still no bowel movements. No abdominal distention. She had been seen by the dietitian for increased fiber intake. We'll start lactulose. Will need complete bowel prep prior to any colonoscopy.
[2018-05-28] MEDS: PANTOPRAZOLE 40 MG/10 ML VIAL IVP SCH (08:54)
[2018-05-28] MEDS: HEPARIN SODIUM,PORCINE 5,000 UNIT/ML 1 ML VIAL SQ SCH ×2 (08:54→15:49)
[2018-05-28] MEDS: METOPROLOL SUCCINATE (ER) 50 MG TAB.ER.24H PO SCH (08:54)
[2018-05-28] MEDS: POLYETHYLENE GLYCOL 3350 17 GM POWD.PACK PO SCH (08:54)
[2018-05-28] MEDS: GABAPENTIN 400 MG CAP PO SCH ×2 (08:55→15:49)
[2018-05-28] MEDS: CYCLOBENZAPRINE 10 MG TAB PO SCH (08:55)
[2018-05-28] MEDS: LISINOPRIL 10 MG TAB PO SCH (08:56)
[2018-05-28] MEDS: CHOLECALCIFEROL 1,000 UNIT TAB PO SCH (08:56)
[2018-05-28] MEDS: MAGNESIUM OXIDE 400 MG TAB PO SCH (08:56)
[2018-05-28 09:24] LABS: Basophils % (A) 1 %; Eosinophils # (A) 0.2 k/uL (0-0.7); Eosinophils % (A) 3 %; HCT 28.5 % (34.0-46.0); Hypochromasia Slight; Lymphocytes # (A) 1.8 k/uL (1.0-4.8); Lymphocytes % (A) 28 %; MCH 24.7 pg (25.0-35.0); MCHC 31.6 g/dL (31.0-37.0); Mean Platelet Volume 7.2; Microcytosis Slight; Monocytes # (A) 0.3 k/uL (0-1.0); Monocytes % (A) 4 %; Neutrophils # (A) 4.1 k/uL (1.3-7.7); Neutrophils % (A) 63 %; Platelet Count 248 k/uL (150-450); RBC 3.66 m/uL (3.80-5.40); RDW 15.8 % (11.5-15.5); WBC 6.5 k/uL (3.8-10.6)
[2018-05-28] MEDS: SYMBICORT 80-4.5 MCG INHALER INHALATION SCH (09:27)
[2018-05-28 09:48] LABS: Anion Gap 6 mmol/L; Blood Urea Nitrogen 11 mg/dL (7-17); Calcium 8.5 mg/dL (8.4-10.2); Carbon Dioxide 28 mmol/L (22-30); Chloride 103 mmol/L (98-107); Glucose 104 mg/dL (74-99); Potassium 4.1 mmol/L (3.5-5.1); Sodium 137 mmol/L (137-145)
--- NOTE | 2018-05-28 12:20 | P.PN ---
Subjective 47 old female with a known history of Asthma, Blood Disorder, Chest Pain / Angina, COPD, Diabetes Mellitus, Fibromyalgia, GERD/Reflux, Hearing Disorder / Deafness, Hyperlipidemia, Hypertension, Liver Disease, Mitral Valve Prolapse (MVP), Musculoskeletal Disorder, Osteoarthritis (OA), Pneumonia, Respiratory Disorder, Sleep Apnea/CPAP/BIPAP And recent laparoscopic lysis of adhesions on 04/24/2018, history of bowel adhesions, and Barb-en-Y gastric bypass surgery came to ER with the complaints of abdominal pain mainly in the left lower quadrant. Patient has been having acute on chronic abdominal pain. Patient had previous episodes with similar symptoms. Patient says that she's been having constant and severe pain and now. Patient does have nausea. No episodes of vomiting. Denied any fever or chills. Denied any blood in the stool. No commerce of chest pain or shortness of breath. No hematemesis or melena. No dysuria or hematuria. No increased frequency of urination. Denied any other problems CT abdominal pelvis showed no acute changes noted. KUB x-ray showed nonspecific bowel gas pattern. Moderate amount of stool in the colon. No dilation. Hemoglobin 10.3. Microcytic. UA negative for infection 05/27/2018 Patient is still complaining of abdominal pain not resolved. No bowel movement with Fleet enema. Patient is being continued on MiraLAX and pain management. Continue with IV hydration. Will increase normal saline 200 mL per hour. General surgery is following. 05/28/2018 Patient is still complaining of abdominal pain patient does have good bowel sounds abdominal pain is believed secondary to constipation. Patient is on [place] as well as Zyrtec Dilaudid Dilaudid will be discontinued. Patient does have good bowel sounds patient will undergo enema today. Constitutional: Denied any fatigue denied any fever. Cardio vascular: denied any chest pain, palpitations Gastrointestinal denied any nausea vomiting Pulmonary: Denied any shortness of breath cough Neurologic denied any new focal deficits All inpatient medications were reviewed and appropriate changes in these medica tions as dictated in the interval history and assessment and plan. Objective - Vital Signs Vital signs: Vital Signs Temp 98.4 F 05/28/18 05:42 Pulse 72 05/28/18 05:42 Resp 16 05/28/18 05:42 BP 143/82 05/28/18 05:42 Pulse Ox 96 05/28/18 05:42 Intake & Output 05/27/18 05/28/18 05/28/18 18:59 06:59 18:59 Intake Total 420 2026 Balance 420 2026 Weight 108 kg Intake: Intake, IV Titration 300 Amount Sodium Chloride 0.9% 1, 300 000 ml @ 100 mls/hr IV . Q10H JERALD Rx#:[id number] Oral 120 2026 Other: Voiding Method Toilet Toilet # Voids 2 2 - Exam PHYSICAL EXAMINATION: GENERAL: The patient is alert and oriented x3, not in any acute distress. Well developed, well nourished. HEENT: Pupils are round and equally reacting to light. EOMI. No scleral icterus. No conjunctival pallor. Normocephalic, atraumatic. No pharyngeal erythema. No thyromegaly. CARDIOVASCULAR: S1 and S2 present. No murmurs, rubs, or gallops. PULMONARY: Chest is clear to auscultation, no wheezing or crackles. ABDOMEN: Soft, nontender, nondistended, normoactive bowel sounds. No palpable organomegaly. MUSCULOSKELETAL: No joint swelling or deformity. EXTREMITIES: No cyanosis, clubbing, or pedal edema. NEUROLOGICAL: Gross neurological examination did not reveal any focal deficits. SKIN: No rashes. - Labs CBC & Chem 7: 05/28/18 08:38 05/28/18 08:38 Labs: Abnormal Lab Results - Last 24 Hours (Table) 05/28/18 05/28/18 Range/Units 08:38 08:38 RBC 3.66 L (3.80-5.40) m/uL Hgb 9.0 L (11.4-16.0) gm/dL Hct 28.5 L (34.0-46.0) % MCV 78.0 L D (80.0-100.0) fL MCH 24.7 L (25.0-35.0) pg RDW 15.8 H (11.5-15.5) % Glucose 104 H (74-99) mg/dL Assessment and Plan Plan: Acute on chronic abdominal pain secondary to constipation: Try and avoid opiate analgesia although patient is insisting on [place] which will be continued. Patient will undergo edema today Recent laparoscopic lysis of adhesions on 04/24/2018 Anxiety/depression and bipolar disorder and PTSD Previous history of smoking Microcytic iron deficiency anemia hypertension: Fairly well controlled Chronic medical problems include Asthma, Blood Disorder, Chest Pain / Angina, COPD, Diabetes Mellitus, Fibromyalgia, GERD/Reflux, Hearing Disorder / Deafness, Hyperlipidemia, Hypertension, Liver Disease, Mitral Valve Prolapse (MVP), Musculoskeletal Disorder, Osteoarthritis (OA), Pneumonia, Respiratory Disorder, Sleep Apnea/CPAP/BIPAP For above-mentioned chronic medical problems patient will be continued on present medications.
[2018-05-28 13:15] VITALS: BP 110/59; PULSE 73; RESP 18
[2018-05-28] MEDS ORDERED: HYDROcodone/APAP 7.5-325MG 1 EACH TAB PO PRN (13:30)
--- NOTE | 2018-05-28 14:13 | P.PN ---
Subjective Progress Note Date: 05/28/18 CHIEF COMPLAINT: abdominal pain HISTORY OF PRESENT ILLNESS: Patient examined at the bedside. Patient continues to report abdominal pain. She is tolerating PO intake. Passing flatus. No BM. PHYSICAL EXAM: VITAL SIGNS: Reviewed. GENERAL: Well-developed in no acute distress. HEENT: No sclera icterus. Extraocular movements grossly intact. Moist buccal mucosa. Head is atraumatic, normocephalic. ABDOMEN: Obese. Soft. Nondistended. Mild tenderness upon palpation of left lower quadrant. Healing surgical sites without drainage. NEUROLOGIC: Alert and oriented. Cranial nerves II through XII grossly intact. ASSESSMENT: 1. Acute on chronic abdominal pain 2. History of constipation, xray shows moderate amount of stool in colon 3. History of laparoscopic lysis of adhesions on 4. Intermittent sigmoid volvulus PLAN: Continue Miralax. Soap suds enema. No surgical intervention recommended. Patient may be discharged from a surgical standpoint. Nurse practitioner note has been reviewed by physician. Signing provider agrees with the documented findings, assessment, and plan of care. Objective - Vital Signs Vital signs: Vital Signs Temp 98.4 F 05/28/18 12:38 Pulse 73 05/28/18 12:38 Resp 18 05/28/18 12:38 BP 110/59 05/28/18 12:38 Pulse Ox 99 05/28/18 12:38 Intake & Output 05/27/18 05/28/18 05/28/18 18:59 06:59 18:59 Intake Total 420 2026 Balance 420 2026 Weight 108 kg Intake: Intake, IV Titration 300 Amount Sodium Chloride 0.9% 1, 300 000 ml @ 100 mls/hr IV . Q10H JERALD Rx#:[id number] Oral 120 2026 Other: Voiding Method Toilet Toilet # Voids 2 2 - Labs CBC & Chem 7: 05/28/18 08:38 05/28/18 08:38 Labs: Abnormal Lab Results - Last 24 Hours (Table) 05/28/18 05/28/18 Range/Units 08:38 08:38 RBC 3.66 L (3.80-5.40) m/uL Hgb 9.0 L (11.4-16.0) gm/dL Hct 28.5 L (34.0-46.0) % MCV 78.0 L D (80.0-100.0) fL MCH 24.7 L (25.0-35.0) pg RDW 15.8 H (11.5-15.5) % Glucose 104 H (74-99) mg/dL Assessment and Plan (1) Constipation Current Visit: Yes Status: Acute Code(s): K59.00 - CONSTIPATION, UNSPECIFIED SNOMED Code(s): 61654601 (2) Intractable abdominal pain Current Visit: Yes Status: Acute Code(s): R10.9 - UNSPECIFIED ABDOMINAL PAIN SNOMED Code(s): 16303243 (3) Chronic abdominal pain Current Visit: No Status: Acute Code(s): R10.9 - UNSPECIFIED ABDOMINAL PAIN; G89.29 - OTHER CHRONIC PAIN SNOMED Code(s): 159063657 (4) Left lower quadrant pain Current Visit: No Status: Acute Code(s): R10.32 - LEFT LOWER QUADRANT PAIN SNOMED Code(s): 737736400 (5) Left upper quadrant pain Current Visit: No Status: Acute Code(s): R10.12 - LEFT UPPER QUADRANT PAIN SNOMED Code(s): 749058897 (6) Chronic pain syndrome Current Visit: No Status: Chronic Code(s): G89.4 - CHRONIC PAIN SYNDROME SNOMED Code(s): 019187504 (7) Morbid obesity with BMI of 40.0-44.9, adult Current Visit: No Status: Chronic Code(s): E66.01 - MORBID (SEVERE) OBESITY DUE TO EXCESS CALORIES SNOMED Code(s): 697010850
--- NOTE | 2018-05-28 16:09 | P.DS ---
Providers Date of admission: 05/26/18 03:01 Attending physician: Ernestine Rice Consults: 05/26/18 03:01 Consult Physician Routine Consulting Provider: Latricia Dumont Consult Reason/Comments: Intractable abdominal pain Do you want consulting provider notified?: Yes Primary care physician: Yarely Boothe MD Hospital Course: Patient had a bowel movement today, is clinically doing well be discharged today please refer to medication a progress note from today for further details of hospitalization course and medical problems that were treated here. Patient Condition at Discharge: Serious Plan - Discharge Summary Discharge Rx Participant: No New Discharge Prescriptions: New Polyethylene Glycol 3350 [Miralax] 17 gm PO DAILY PRN #15 packet PRN Reason: Constipation Continue Gabapentin 800 mg PO TID Albuterol Inhaler [Ventolin Hfa Inhaler] 2 puff INHALATION RT-Q6H PRN PRN Reason: Shortness Of Breath Cyclobenzaprine [Flexeril] 10 mg PO BID SUMAtriptan SUCCINATE [Imitrex] 50 mg PO ONCE PRN PRN Reason: ONSET OF HEADACHE Nitroglycerin Sl Tabs [Nitrostat] 0.4 mg PO Q5M PRN PRN Reason: Chest Pain Metoprolol Succinate [Toprol XL] 50 mg PO DAILY Metoclopramide HCl [Reglan] 5 mg PO DAILY PRN PRN Reason: ABDOMINAL PAIN Ferrous Sulfate [Feosol] 325 mg PO TID Budesonide/Formoterol Fumarate [Symbicort 80-4.5 Mcg Inhaler] 2 puff INHALATION RT-BID Vit B Complx C/Folic Acid/Zinc [Renaplex Tablet] 1 tab PO DAILY Zinc 50 mg PO DAILY rOPINIRole HCL [Requip] 2 mg PO TID Magnesium Oxide 400 mg PO DAILY Cholecalciferol (Vitamin D3) [Vitamin D3] 10,000 unit PO DAILY Omeprazole 40 mg PO DAILY #14 capsule. Ondansetron Odt [Zofran ODT] 4 mg PO Q8HR PRN #10 tab PRN Reason: Nausea Furosemide [Lasix] 20 mg PO DAILY #0 Changed Lisinopril [Zestril] 5 mg PO DAILY #0 Discharge Medication List Gabapentin 800 mg PO TID 03/30/15 [History] Albuterol Inhaler [Ventolin Hfa Inhaler] 2 puff INHALATION RT-Q6H PRN 11/28/15 [History] Cyclobenzaprine [Flexeril] 10 mg PO BID 08/05/16 [History] Budesonide/Formoterol Fumarate [Symbicort 80-4.5 Mcg Inhaler] 2 puff INHALATION RT-BID 01/22/18 [History] Ferrous Sulfate [Feosol] 325 mg PO TID 01/22/18 [History] Metoclopramide HCl [Reglan] 5 mg PO DAILY PRN 01/22/18 [History] Metoprolol Succinate [Toprol XL] 50 mg PO DAILY 01/22/18 [History] Nitroglycerin Sl Tabs [Nitrostat] 0.4 mg PO Q5M PRN 01/22/18 [History] SUMAtriptan SUCCINATE [Imitrex] 50 mg PO ONCE PRN 01/22/18 [History] Vit B Complx C/Folic Acid/Zinc [Renaplex Tablet] 1 tab PO DAILY 03/04/18 [History] Zinc 50 mg PO DAILY 03/04/18 [History] rOPINIRole HCL [Requip] 2 mg PO TID 03/21/18 [History] Cholecalciferol (Vitamin D3) [Vitamin D3] 10,000 unit PO DAILY 03/23/18 [History] Magnesium Oxide 400 mg PO DAILY 03/23/18 [History] Omeprazole 40 mg PO DAILY #14 capsule. 04/02/18 [Rx] Ondansetron Odt [Zofran ODT] 4 mg PO Q8HR PRN #10 tab 04/02/18 [Rx] Furosemide [Lasix] 20 mg PO DAILY #0 05/28/18 [Rx] Lisinopril [Zestril] 5 mg PO DAILY #0 05/28/18 [Rx] Polyethylene Glycol 3350 [Miralax] 17 gm PO DAILY PRN #15 packet 05/28/18 [Rx] Follow up Appointment(s)/Referral(s): Yarely Boothe MD [Primary Care Provider] - 06/03/18 12:50 pm (Saturday)
[2018-05-28] MEDS: METOCLOPRAMIDE 5 MG TAB PO PRN (16:17)
== END 2018-05-28 16:32 | disposition home or self-care (01) ==
LOC: EC 22:20 → 1SOBS 05-26 03:01 → 3SCARD 05-26 06:51 → 4MS4W 05-27 11:30
PROVIDERS: ADMIT Internal Medicine; ATTEND Internal Medicine
DX: K59.00 Constipation, unspecified (principal); K56.2 Volvulus; G89.4 Chronic pain syndrome; M54.9 Dorsalgia, unspecified; D50.9 Iron deficiency anemia, unspecified; M79.7 Fibromyalgia; I10 Essential (primary) hypertension; E78.5 Hyperlipidemia, unspecified; E11.40 Type 2 diabetes mellitus with diabetic neuropathy, unspecified; K21.9 Gastro-esophageal reflux disease without esophagitis; J44.9 Chronic obstructive pulmonary disease, unspecified; I34.1 Nonrheumatic mitral (valve) prolapse; H91.90 Unspecified hearing loss, unspecified ear; D68.51 Activated protein C resistance; E66.01 Morbid (severe) obesity due to excess calories; Z68.41 Body mass index [BMI] 40.0-44.9, adult; M19.90 Unspecified osteoarthritis, unspecified site; G47.30 Sleep apnea, unspecified; Z99.89 Dependence on other enabling machines and devices; K76.0 Fatty (change of) liver, not elsewhere classified; G43.909 Migraine, unspecified, not intractable, without status migrainosus; G25.81 Restless legs syndrome; F40.240 Claustrophobia; F43.10 Post-traumatic stress disorder, unspecified; F31.9 Bipolar disorder, unspecified; F41.9 Anxiety disorder, unspecified; F40.10 Social phobia, unspecified; Z98.890 Other specified postprocedural states; Z98.84 Bariatric surgery status; Z79.51 Long term (current) use of inhaled steroids; Z79.899 Other long term (current) drug therapy; Z88.5 Allergy status to narcotic agent; Z88.0 Allergy status to penicillin; Z88.2 Allergy status to sulfonamides; Z91.018 Allergy to other foods; Z91.048 Other nonmedicinal substance allergy status; Z90.49 Acquired absence of other specified parts of digestive tract; Z87.891 Personal history of nicotine dependence; Z87.01 Personal history of pneumonia (recurrent); Z83.3 Family history of diabetes mellitus; Z82.49 Family history of ischemic heart disease and other diseases of the circulatory system; Z83.2 Family history of diseases of the blood and blood-forming organs and certain disorders involving the immune mechanism; Z83.49 Family history of other endocrine, nutritional and metabolic diseases
CPT/HCPCS: 96376 ×4; 96372 ×2; 96375 ×2; 96361; 96374; 99285; 36415; 94640 ×3; 80053; 80048; 82150; 83605; 83690; 85025 ×2; 81003; 81025; 74018; 74177; G0378 ×4; J1170 ×4; J1200 ×2; J1644 ×2; J2765; J2405 ×3; C9113 ×3; Q9967

== ENCOUNTER 2018-05-29 16:27 | Emergency (ER) | payer MEDICARE, OTHER ==
[2018-05-29 16:41] VITALS: TEMP 98.2
[2018-05-29 17:26] LABS: Basophils % (A) 1 %; Eosinophils # (A) 0.2 k/uL (0-0.7); Eosinophils % (A) 3 %; HCT 30.9 % (34.0-46.0); HGB 9.6 gm/dL (11.4-16.0); Lymphocytes # (A) 1.6 k/uL (1.0-4.8); Lymphocytes % (A) 26 %; MCH 24.5 pg (25.0-35.0); MCHC 31.1 g/dL (31.0-37.0); MCV 78.6 fL (80.0-100.0); Monocytes # (A) 0.3 k/uL (0-1.0); Monocytes % (A) 4 %; Neutrophils % (A) 64 %; Platelet Count 260 k/uL (150-450); RBC 3.94 m/uL (3.80-5.40); RDW 15.6 % (11.5-15.5); WBC 6.2 k/uL (3.8-10.6)
[2018-05-29 17:36] LABS: ALT 28 U/L (9-52); AST 16 U/L (14-36); Albumin 3.7 g/dL (3.5-5.0); Alkaline Phosphatase 103 U/L (38-126); Anion Gap 5 mmol/L; Blood Urea Nitrogen 6 mg/dL (7-17); Calcium 8.7 mg/dL (8.4-10.2); Carbon Dioxide 29 mmol/L (22-30); Chloride 104 mmol/L (98-107); Glucose 111 mg/dL (74-99); Potassium 4.6 mmol/L (3.5-5.1); Sodium 138 mmol/L (137-145); Total Bilirubin 0.6 mg/dL (0.2-1.3); Total Protein 6.3 g/dL (6.3-8.2)
[2018-05-29 17:42] LABS: INR 0.9 (<1.2); Partial Thromboplastin Time 22.7 sec (22.0-30.0); Prothrombin Time 9.7 sec (9.0-12.0)
[2018-05-29] MEDS ORDERED: HYDROmorphone 2 MG/ML 1 ML SYRINGE IVP STA ×2 (19:48→21:09)
--- NOTE | 2018-05-29 19:49 | ED ---
Weakness HPI - General Chief complaint: Weakness Stated complaint: Syncope, numbness in legs/arms Time Seen by Provider: 05/29/18 18:49 Source: patient Mode of arrival: ambulatory Limitations: no limitations - History of Present Illness Initial comments: 47 year-old female patient with multiple chronic medical problems including fibromyalgia, hypertension, diabetes, and multiple sclerosis presents to the emergency department today for evaluation of generalized weakness, generalized paresthesia, and generalized sharp shooting pains throughout her body. Patient states this started around 8 PM last evening after being discharged home from the hospital for admission for intractable abdominal pain. Patient states that she has felt very fatigued and has been sleeping more than usual. Patient states she doesn't feel like eating or drinking. Patient states she does not currently see a neurologist for her MS, states that she does see her primary c are physician to [facility]. She is not currently taking any medications for multiple sclerosis. Patient denies any recent rash, fever, chills, shortness breath, chest pain, abdominal pain, nausea, vomiting, diarrhea, constipation, back pain, hematuria, dysuria, urinary urgency, urinary frequency, headache, visual changes, or any other complaints. - Related Data Home Medications Medication Instructions Recorded Confirmed Gabapentin 800 mg PO TID 03/30/15 05/29/18 Albuterol Inhaler [Ventolin Hfa 2 puff INHALATION RT-Q6H PRN 11/28/15 05/29/18 Inhaler] Cyclobenzaprine [Flexeril] 10 mg PO BID 08/05/16 05/29/18 Budesonide/Formoterol Fumarate 2 puff INHALATION RT-BID 01/22/18 05/29/18 [Symbicort 80-4.5 Mcg Inhaler] Ferrous Sulfate [Feosol] 325 mg PO TID 01/22/18 05/29/18 Metoclopramide HCl [Reglan] 5 mg PO DAILY PRN 01/22/18 05/29/18 Metoprolol Succinate [Toprol XL] 50 mg PO DAILY 01/22/18 05/29/18 Nitroglycerin Sl Tabs [Nitrostat] 0.4 mg PO Q5M PRN 01/22/18 05/29/18 SUMAtriptan SUCCINATE [Imitrex] 50 mg PO ONCE PRN 01/22/18 05/29/18 Vit B Complx C/Folic Acid/Zinc 1 tab PO DAILY 03/04/18 05/29/18 [Renaplex Tablet] Zinc 50 mg PO DAILY 03/04/18 05/29/18 rOPINIRole HCL [Requip] 2 mg PO TID 03/21/18 05/29/18 Cholecalciferol (Vitamin D3) 10,000 unit PO DAILY 03/23/18 05/29/18 [Vitamin D3] Magnesium Oxide 400 mg PO DAILY 03/23/18 05/29/18 Furosemide [Lasix] 20 mg PO DAILY PRN 05/29/18 05/29/18 Previous Rx's Medication Instructions Recorded Omeprazole 40 mg PO DAILY #14 capsule. 04/02/18 Ondansetron Odt [Zofran ODT] 4 mg PO Q8HR PRN #10 tab 04/02/18 Lisinopril [Zestril] 5 mg PO DAILY #0 05/28/18 Polyethylene Glycol 3350 [Miralax] 17 gm PO DAILY PRN #15 packet 05/28/18 Allergies Allergy/AdvReac Type Severity Reaction Status Date / Time Sulfa (Sulfonamide Allergy Severe Anaphylaxis Verified 05/29/18 18:59 Antibiotics) adhesive tape Allergy BLISTERS Verified 05/29/18 18:59 amoxicillin [From Augmentin] Allergy Rash/Hives Verified 05/29/18 18:59 clavulanic acid Allergy Rash/Hives Verified 05/29/18 18:59 [From Augmentin] codeine Allergy ABDOMINAL Verified 05/29/18 18:59 PAIN, MIGRAINE HEADACHE morphine Allergy Itching Verified 05/29/18 18:59 Penicillins Allergy Rash/Hives Verified 05/29/18 18:59 adhesive AdvReac Itching Verified 05/29/18 18:59 artificial sweetners Allergy Nausea, Uncoded 05/29/18 16:41 MIGRAINE HEADACHE Review of Systems ROS Statement: Those systems with pertinent positive or pertinent negative responses have been documented in the HPI. ROS Other: All systems not noted in ROS Statement are negative. Past Medical History Past Medical History: Asthma, Blood Disorder, Chest Pain / Angina, COPD, Diabet es Mellitus, Fibromyalgia, GERD/Reflux, Hearing Disorder / Deafness, Hyperlipidemia, Hypertension, Liver Disease, Mitral Valve Prolapse (MVP), Musculoskeletal Disorder, Osteoarthritis (OA), Pneumonia, Respiratory Disorder, Sleep Apnea/CPAP/BIPAP Additional Past Medical History / Comment(s): MIGRAINES, DEGENERATIVE DISC DISEASE, FATTY LIVER, LEIDEN FACTOR 5, OCCASIONAL SWELLING IN LOWER EXT.NEUROPATHY, RLS, diabetes is in remission since surgery, chronic back pain, PATIENT HAS BEEN OFF MEDS FOR DIABETES SINCE BARIATRIC SURGERY History of Any Multi-Drug Resistant Organisms: None Reported Past Surgical History: Adenoidectomy, Appendectomy, Bariatric Surgery, Bowel Resection, Breast Surgery, Section, Cholecystectomy, Ear Surgery, Heart Catheterization, Hernia Repair, Orthopedic Surgery, Tonsillectomy Additional Past Surgical History / Comment(s): ARTHROSCOPY RT KNEE X3, RT BREAST BX-NEG, (13) MYRINGOTOMYS. laparoscopic danielle-en-y with lysis of adhesions 2013; Surgical wound debridement x3 ; SX TO REMOVED SCAR TISSUE FROM PREVIOUS ABD SX;EGD ; LAP EXAM- APPY SMALL BOWEL OBSTRUCTION LYSIS OFF ADHESIONS, 3 hernia repairs, 3 bowel resection, 07/2016 colon resection, adhesions removed 03/2018 Past Anesthesia/Blood Transfusion Reactions: No Reported Reaction Additional Past Anesthesia/Blood Transfusion Reaction / Comment(s): SEVERE HEADACHE AFTER LAST SCOPE, clausterphobia Past Psychological History: Anxiety, Bipolar, Depression, PTSD Smoking Status: Former smoker Past Alcohol Use History: None Reported Past Drug Use History: None Reported - Past Family History Mother Family Medical History: Deep Vein Thrombosis (DVT), Hypertension, Pulmonary Embolus, Thyroid Disorder Additional Family Medical History / Comment(s): FACTOR 5 LEIDEN, MVP Father Family Medical History: Diabetes Mellitus, Hypertension, Myocardial Infarction ([place]) Additional Family Medical History / Comment(s): AGE 59 [place] General Exam Limitations: no limitations General appearance: alert, in no apparent distress, other (This is a well- developed, well-nourished adult female patient in no acute distress. Vital signs upon presentation Are 98.2F, pulse 77, respirations 20, blood pressure 184/106, pulse ox 100% on room air.) Eye exam: Present: normal appearance, PERRL, EOMI. Absent: scleral icterus, conjunctival injection, periorbital swelling ENT exam: Present: normal exam, normal oropharynx, mucous membranes moist Respiratory exam: Present: normal lung sounds bilaterally. Absent: respiratory distress, wheezes, rales, rhonchi, stridor Cardiovascular Exam: Present: regular rate, normal rhythm, normal heart sounds. Absent: systolic murmur, diastolic murmur, rubs, gallop, clicks GI/Abdominal exam: Present: soft, normal bowel sounds. Absent: distended, tenderness, guarding, rebound, rigid Neurological exam: Present: alert, oriented X3, CN II-XII intact Psychiatric exam: Present: normal affect, normal mood Skin exam: Present: warm, dry, intact, normal color. Absent: rash Course Vital Signs 05/29/18 05/29/18 05/29/18 16:39 21:08 22:14 Temperature 98.2 F Pulse Rate 77 79 80 Respiratory 20 20 18 Rate Blood Pressure 184/106 207/102 194/89 O2 Sat by Pulse 100 95 95 Oximetry EKG Findings - EKG Comments: EKG Findings:: EKG obtained at 1718 shows normal sinus rhythm with ventricular rate of 66, MD interval 162, QRS duration 80, QT 386, QTC 404. No evidence of ST elevation or depression. Medical Decision Making - Medical Decision Making 47 year-old female patient presents the emergency department today for evaluation of generalized weakness, paresthesia, and pain. Physical examination is unremarkable. Patient is neurologically intact with no focal deficits. Labs reviewed and did reveal low hemoglobin 9.6 however this is chronic for the patient. Did discuss findings and results with the patient. Patient does have history of multiple sclerosis, and there is concern this may be exacerbation of this condition. Patient was given 500 mg of Solu Medrol IV here in the emergency department. She was given pain medication to manage symptoms. She'll be discharged home at this time to follow-up with her primary care physician for referral to neurology. Return parameters were discussed in detail. She verbalizes understanding and agrees with this plan. - Lab Data Result diagrams: 05/29/18 17:14 05/29/18 17:14 Lab Results 05/29/18 05/29/18 05/29/18 Range/Units 17:14 17:14 17:14 WBC 6.2 (3.8-10.6) k/uL RBC 3.94 (3.80-5.40) m/uL Hgb 9.6 L (11.4-16.0) gm/dL Hct 30.9 L (34.0-46.0) % MCV 78.6 L (80.0-100.0) fL MCH 24.5 L (25.0-35.0) pg MCHC 31.1 (31.0-37.0) g/dL RDW 15.6 H (11.5-15.5) % Plt Count 260 (150-450) k/uL Neutrophils % 64 % Lymphocytes % 26 % Monocytes % 4 % Eosinophils % 3 % Basophils % 1 % Neutrophils # 4.0 (1.3-7.7) k/uL Lymphocytes # 1.6 (1.0-4.8) k/uL Monocytes # 0.3 (0-1.0) k/uL Eosinophils # 0.2 (0-0.7) k/uL Basophils # 0.0 (0-0.2) k/uL PT 9.7 (9.0-12.0) sec INR 0.9 (<1.2) APTT 22.7 (22.0-30.0) sec Sodium 138 (137-145) mmol/L Potassium 4.6 (3.5-5.1) mmol/L Chloride 104 (98-107) mmol/L Carbon Dioxide 29 (22-30) mmol/L Anion Gap 5 mmol/L BUN 6 L (7-17) mg/dL Creatinine 0.46 L (0.52-1.04) mg/dL Est GFR (CKD-EPI)AfAm >90 (>60 ml/min/1.73 sqM) Est GFR (CKD-EPI)NonAf >90 (>60 ml/min/1.73 sqM) Glucose 111 H (74-99) mg/dL Calcium 8.7 (8.4-10.2) mg/dL Magnesium (1.6-2.3) mg/dL Total Bilirubin 0.6 (0.2-1.3) mg/dL AST 16 (14-36) U/L ALT 28 (9-52) U/L Alkaline Phosphatase 103 (38-126) U/L Troponin I (0.000-0.034) ng/mL Total Protein 6.3 (6.3-8.2) g/dL Albumin 3.7 (3.5-5.0) g/dL 05/29/18 05/29/18 Range/Units 17:14 19:12 WBC (3.8-10.6) k/uL RBC (3.80-5.40) m/uL Hgb (11.4-16.0) gm/dL Hct (34.0-46.0) % MCV (80.0-100.0) fL MCH (25.0-35.0) pg MCHC (31.0-37.0) g/dL RDW (11.5-15.5) % Plt Count (150-450) k/uL Neutrophils % % Lymphocytes % % Monocytes % % Eosinophils % % Basophils % % Neutrophils # (1.3-7.7) k/uL Lymphocytes # (1.0-4.8) k/uL Monocytes # (0-1.0) k/uL Eosinophils # (0-0.7) k/uL Basophils # (0-0.2) k/uL PT (9.0-12.0) sec INR (<1.2) APTT (22.0-30.0) sec Sodium (137-145) mmol/L Potassium (3.5-5.1) mmol/L Chloride (98-107) mmol/L Carbon Dioxide (22-30) mmol/L Anion Gap mmol/L BUN (7-17) mg/dL Creatinine (0.52-1.04) mg/dL Est GFR (CKD-EPI)AfAm (>60 ml/min/1.73 sqM) Est GFR (CKD-EPI)NonAf (>60 ml/min/1.73 sqM) Glucose (74-99) mg/dL Calcium (8.4-10.2) mg/dL Magnesium 1.9 (1.6-2.3) mg/dL Total Bilirubin (0.2-1.3) mg/dL AST (14-36) U/L ALT (9-52) U/L Alkaline Phosphatase (38-126) U/L Troponin I <0.012 (0.000-0.034) ng/mL Total Protein (6.3-8.2) g/dL Albumin (3.5-5.0) g/dL Disposition Clinical Impression: Exacerbation of multiple sclerosis, Paresthesia Disposition: HOME SELF-CARE Condition: Good Instructions (If sedation given, give patient instructions): Multiple Sclerosis (DC), Paresthesia (ED) Additional Instructions: Follow-up with your primary care physician for recheck as soon as possible. Return to the emergency department immediately for any new, worsening, or concerning symptoms. Is patient prescribed a controlled substance at d/c from ED?: No Referrals: Yarely Boothe MD [Primary Care Provider] - 1-2 days
[2018-05-29] MEDS ORDERED: ENALAPRILAT 1.25 MG/ML 1 ML VIAL IVP STA (21:10)
[2018-05-29] MEDS ORDERED: cloNIDine HCL 0.1 MG TAB PO STA (22:11)
[2018-05-29 22:15] VITALS: BP 194/89; PULSE 80; RESP 18
== END 2018-05-29 22:29 | disposition home or self-care (01) ==
LOC: EC 16:27
DX: G35 Multiple sclerosis (principal); D64.9 Anemia, unspecified; J44.9 Chronic obstructive pulmonary disease, unspecified; M79.7 Fibromyalgia; G62.9 Polyneuropathy, unspecified; G25.81 Restless legs syndrome; G47.30 Sleep apnea, unspecified; I10 Essential (primary) hypertension; H91.90 Unspecified hearing loss, unspecified ear; Z87.891 Personal history of nicotine dependence; Z88.0 Allergy status to penicillin; Z88.1 Allergy status to other antibiotic agents; Z88.2 Allergy status to sulfonamides; Z88.5 Allergy status to narcotic agent; Z91.02 Food additives allergy status; Z91.048 Other nonmedicinal substance allergy status; Z79.51 Long term (current) use of inhaled steroids; Z79.899 Other long term (current) drug therapy; Z86.69 Personal history of other diseases of the nervous system and sense organs; Z98.84 Bariatric surgery status; Z95.818 Presence of other cardiac implants and grafts; Z99.89 Dependence on other enabling machines and devices
CPT/HCPCS: 36415; 93005; 80053; 83735; 84484; 85025; 85610; 85730; 99285; 96365; 96366; 96375 ×2; 96376; J1170; J2930

== ENCOUNTER 2018-06-25 12:25 | Observation (INO) | payer MEDICARE, OTHER ==
[2018-06-25] MEDS ORDERED: PANTOPRAZOLE 40 MG/10 ML VIAL IVP STA (13:01)
[2018-06-25] MEDS ORDERED: IOPAMIDOL-300 CONTRAST 30 ML VIAL (ORAL USE) PO PRN (13:01)
[2018-06-25] MEDS ORDERED: SODIUM CHLORIDE 0.9% 2,000 ML IV STA (13:01)
[2018-06-25] MEDS ORDERED: ONDANSETRON 4 MG/2 ML VIAL IVP STA ×2 (13:01→14:06)
[2018-06-25] MEDS ORDERED: HYDROmorphone 1 MG/ML 1 ML SYRINGE IVP STA (13:01)
--- NOTE | 2018-06-25 13:08 | ED ---
General Adult HPI - General Chief complaint: Abdominal Pain Stated complaint: abdominal pain Time Seen by Provider: 06/25/18 12:54 Source: patient, RN notes reviewed Mode of arrival: ambulatory Limitations: no limitations - History of Present Illness Initial comments: Patient is a pleasant 47-year-old female presenting to the emergency Department with complaints of abdominal discomfort. Onset of symptoms was around 3 days ago. Patient has had multiple episodes of nausea and vomiting. Patient states every time she eats or drinks something gums are worse. No fevers. Patient has been somewhat constipated however that is fairly chronic for her. Patient is 5 years postop gastric bypass surgery. Patient has had postoperative complications including needing a partial colectomy. - Related Data Home Medications Medication Instructions Recorded Confirmed Gabapentin 800 mg PO TID 03/30/15 06/25/18 Albuterol Inhaler [Ventolin Hfa 2 puff INHALATION RT-Q6H PRN 11/28/15 06/25/18 Inhaler] Cyclobenzaprine [Flexeril] 10 mg PO BID 08/05/16 06/25/18 Budesonide/Formoterol Fumarate 2 puff INHALATION RT-BID 01/22/18 06/25/18 [Symbicort 80-4.5 Mcg Inhaler] Ferrous Sulfate [Feosol] 325 mg PO TID 01/22/18 06/25/18 Metoclopramide HCl [Reglan] 5 mg PO DAILY PRN 01/22/18 06/25/18 Metoprolol Succinate [Toprol XL] 50 mg PO DAILY 01/22/18 06/25/18 Nitroglycerin Sl Tabs [Nitrostat] 0.4 mg PO Q5M PRN 01/22/18 06/25/18 SUMAtriptan SUCCINATE [Imitrex] 50 mg PO ONCE PRN 01/22/18 06/25/18 Vit B Complx C/Folic Acid/Zinc 1 tab PO DAILY 03/04/18 06/25/18 [Renaplex Tablet] Zinc 50 mg PO DAILY 03/04/18 06/25/18 rOPINIRole HCL [Requip] 2 mg PO TID 03/21/18 06/25/18 Cholecalciferol (Vitamin D3) 10,000 unit PO DAILY 03/23/18 06/25/18 [Vitamin D3] Magnesium Oxide 400 mg PO DAILY 03/23/18 06/25/18 Furosemide [Lasix] 20 mg PO DAILY PRN 05/29/18 06/25/18 Previous Rx's Medication Instructions Recorded Omeprazole 40 mg PO DAILY #14 capsule. 04/02/18 Ondansetron Odt [Zofran ODT] 4 mg PO Q8HR PRN #10 tab 04/02/18 Lisinopril [Zestril] 5 mg PO DAILY #0 05/28/18 Polyethylene Glycol 3350 [Miralax] 17 gm PO DAILY PRN #15 packet 05/28/18 Allergies Allergy/AdvReac Type Severity Reaction Status Date / Time Sulfa (Sulfonamide Allergy Severe Anaphylaxis Verified 06/25/18 13:20 Antibiotics) adhesive tape Allergy BLISTERS Verified 06/25/18 13:20 amoxicillin [From Augmentin] Allergy Rash/Hives Verified 06/25/18 13:20 clavulanic acid Allergy Rash/Hives Verified 06/25/18 13:20 [From Augmentin] codeine Allergy ABDOMINAL Verified 06/25/18 13:20 PAIN, MIGRAINE HEADACHE Iodinated Contrast- Oral and Allergy Itching Verified 06/25/18 14:41 IV Dye morphine Allergy Itching Verified 06/25/18 13:20 Penicillins Allergy Rash/Hives Verified 06/25/18 13:20 adhesive AdvReac Itching Verified 06/25/18 13:20 artificial sweetners Allergy Nausea, Uncoded 06/25/18 12:46 MIGRAINE HEADACHE Review of Systems ROS Statement: Those systems with pertinent positive or pertinent negative responses have been documented in the HPI. ROS Other: All systems not noted in ROS Statement are negative. Constitutional: Denies: fever Eyes: Denies: eye pain ENT: Denies: ear pain Respiratory: Denies: cough Cardiovascular: Denies: chest pain Endocrine: Denies: fatigue Gastrointestinal: Reports: as per HPI, abdominal pain, nausea, vomiting, constipation Genitourinary: Denies: dysuria Musculoskeletal: Denies: back pain Skin: Denies: rash Neurological: Denies: weakness Past Medical History Past Medical History: Asthma, Blood Disorder, Chest Pain / Angina, COPD, Diabetes Mellitus, Fibromyalgia, GERD/Reflux, Hearing Disorder / Deafness, Hyperlipidemia, Hypertension, Liver Disease, Mitral Valve Prolapse (MVP), Musculoskeletal Disorder, Osteoarthritis (OA), Pneumonia, Respiratory Disorder, Sleep Apnea/CPAP/BIPAP Additional Past Medical History / Comment(s): MIGRAINES, DEGENERATIVE DISC DISEASE, FATTY LIVER, LEIDEN FACTOR 5, OCCASIONAL SWELLING IN LOWER EXT.NEUROPATHY, RLS, diabetes is in remission since surgery, chronic back pain, PATIENT HAS BEEN OFF MEDS FOR DIABETES SINCE BARIATRIC SURGERY History of Any Multi-Drug Resistant Organisms: None Reported Past Surgical History: Adenoidectomy, Appendectomy, Bariatric Surgery, Bowel Resection, Breast Surgery, Section, Cholecystectomy, Ear Surgery, Heart Catheterization, Hernia Repair, Orthopedic Surgery, Tonsillectomy Additional Past Surgical History / Comment(s): ARTHROSCOPY RT KNEE X3, RT BREAST BX-NEG, (13) MYRINGOTOMYS. laparoscopic danielle-en-y with lysis of adhesions 2013; Surgical wound debridement x3 ; SX TO REMOVED SCAR TISSUE FROM PREVIOUS ABD SX;EGD ; LAP EXAM- APPY SMALL BOWEL OBSTRUCTION LYSIS OFF ADHESIONS, 3 hernia repairs, 3 bowel resection, 07/2016 colon resection, adhesions removed 03/2018 Past Anesthesia/Blood Transfusion Reactions: No Reported Reaction Additional Past Anesthesia/Blood Transfusion Reaction / Comment(s): SEVERE HEADACHE AFTER LAST SCOPE, clausterphobia Past Psychological History: Anxiety, Bipolar, Depression, PTSD Smoking Status: Former smoker Past Alcohol Use History: None Reported Past Drug Use History: None Reported - Past Family History Mother Family Medical History: Deep Vein Thrombosis (DVT), Hypertension, Pulmonary Embolus, Thyroid Disorder Additional Family Medical History / Comment(s): FACTOR 5 LEIDEN, MVP Father Family Medical History: Diabetes Mellitus, Hypertension, Myocardial Infarction ( [place]) Additional Family Medical History / Comment(s): AGE 59 [place] General Exam Limitations: no limitations General appearance: alert, in no apparent distress Head exam: Present: normocephalic Eye exam: Present: normal appearance, PERRL ENT exam: Present: normal oropharynx Neck exam: Present: normal inspection Respiratory exam: Present: normal lung sounds bilaterally. Absent: chest wall tenderness Cardiovascular Exam: Present: regular rate, normal rhythm Expanded Peripheral pulses: 2+: Posterior Tibialis (R), Posterior Tibialis (L) GI/Abdominal exam: Present: soft, tenderness (Mild tenderness in the epigastrium), normal bowel sounds. Absent: distended, guarding, rebound, rigid, pulsatile mass Extremities exam: Present: normal inspection Neurological exam: Present: alert Psychiatric exam: Present: normal affect, normal mood Skin exam: Present: normal color Course Vital Signs 06/25/18 12:44 Temperature 98.7 F Pulse Rate 83 Respiratory 20 Rate Blood Pressure 157/95 O2 Sat by Pulse 99 Oximetry Medical Decision Making - Medical Decision Making Patient reevaluated and still has continued symptoms. Case was discussed with Dr. Gabriel who is very familiar with this patient. She states the patient is not comfortable with discharge she can be placed in observation for fluids and nausea medication. She recommends Tylenol only for pain. - Lab Data Result diagrams: 06/25/18 13:11 06/25/18 13:11 Lab Results 06/25/18 06/25/18 06/25/18 Range/Units 13:11 13:11 13:11 WBC 7.5 (3.8-10.6) k/uL RBC 4.17 (3.80-5.40) m/uL Hgb 10.5 L (11.4-16.0) gm/dL Hct 32.8 L (34.0-46.0) % MCV 78.5 L (80.0-100.0) fL MCH 25.3 (25.0-35.0) pg MCHC 32.2 (31.0-37.0) g/dL RDW 15.7 H (11.5-15.5) % Plt Count 315 (150-450) k/uL Neutrophils % 66 % Lymphocytes % 25 % Monocytes % 3 % Eosinophils % 3 % Basophils % 1 % Neutrophils # 4.9 (1.3-7.7) k/uL Lymphocytes # 1.9 (1.0-4.8) k/uL Monocytes # 0.2 (0-1.0) k/uL Eosinophils # 0.2 (0-0.7) k/uL Basophils # 0.1 (0-0.2) k/uL PT 9.5 (9.0-12.0) sec INR 0.9 (<1.2) APTT 22.1 (22.0-30.0) sec Sodium 138 (137-145) mmol/L Potassium 4.4 (3.5-5.1) mmol/L Chloride 102 (98-107) mmol/L Carbon Dioxide 29 (22-30) mmol/L Anion Gap 7 mmol/L BUN 15 (7-17) mg/dL Creatinine 0.54 (0.52-1.04) mg/dL Est GFR (CKD-EPI)AfAm >90 (>60 ml/min/1.73 sqM) Est GFR (CKD-EPI)NonAf >90 (>60 ml/min/1.73 sqM) Glucose 142 H (74-99) mg/dL Calcium 9.1 (8.4-10.2) mg/dL Total Bilirubin 0.8 (0.2-1.3) mg/dL AST 21 (14-36) U/L ALT 22 (9-52) U/L Alkaline Phosphatase 129 H (38-126) U/L Creatine Kinase 101 (30-135) U/L Total Protein 7.2 (6.3-8.2) g/dL Albumin 4.3 (3.5-5.0) g/dL Amylase 58 (30-110) U/L Lipase 72 (23-300) U/L Urine Color Urine Appearance (Clear) Urine pH (5.0-8.0) Ur Specific [place] (1.001-1.035) Urine Protein (Negative) Urine Glucose (UA) (Negative) Urine Ketones (Negative) Urine Blood (Negative) Urine Nitrite (Negative) Urine Bilirubin (Negative) Urine Urobilinogen (<2.0) mg/dL Ur Leukocyte Esterase (Negative) Urine RBC (0-5) /hpf Urine WBC (0-5) /hpf Ur Squamous Epith Cells (0-4) /hpf Urine Bacteria (None) /hpf Urine Mucus (None) /hpf 06/25/18 Range/Units 13:11 WBC (3.8-10.6) k/uL RBC (3.80-5.40) m/uL Hgb (11.4-16.0) gm/dL Hct (34.0-46.0) % MCV (80.0-100.0) fL MCH (25.0-35.0) pg MCHC (31.0-37.0) g/dL RDW (11.5-15.5) % Plt Count (150-450) k/uL Neutrophils % % Lymphocytes % % Monocytes % % Eosinophils % % Basophils % % Neutrophils # (1.3-7.7) k/uL Lymphocytes # (1.0-4.8) k/uL Monocytes # (0-1.0) k/uL Eosinophils # (0-0.7) k/uL Basophils # (0-0.2) k/uL PT (9.0-12.0) sec INR (<1.2) APTT (22.0-30.0) sec Sodium (137-145) mmol/L Potassium (3.5-5.1) mmol/L Chloride (98-107) mmol/L Carbon Dioxide (22-30) mmol/L Anion Gap mmol/L BUN (7-17) mg/dL Creatinine (0.52-1.04) mg/dL Est GFR (CKD-EPI)AfAm (>60 ml/min/1.73 sqM) Est GFR (CKD-EPI)NonAf (>60 ml/min/1.73 sqM) Glucose (74-99) mg/dL Calcium (8.4-10.2) mg/dL Total Bilirubin (0.2-1.3) mg/dL AST (14-36) U/L ALT (9-52) U/L Alkaline Phosphatase (38-126) U/L Creatine Kinase (30-135) U/L Total Protein (6.3-8.2) g/dL Albumin (3.5-5.0) g/dL Amylase (30-110) U/L Lipase (23-300) U/L Urine Color Yellow Urine Appearance Cloudy H (Clear) Urine pH 6.0 (5.0-8.0) Ur Specific [place] 1.022 (1.001-1.035) Urine Protein Trace H (Negative) Urine Glucose (UA) Negative (Negative) Urine Ketones Negative (Negative) Urine Blood Moderate H (Negative) Urine Nitrite Negative (Negative) Urine Bilirubin Negative (Negative) Urine Urobilinogen 4.0 (<2.0) mg/dL Ur Leukocyte Esterase Trace H (Negative) Urine RBC 119 H (0-5) /hpf Urine WBC 8 H (0-5) /hpf Ur Squamous Epith Cells 4 (0-4) /hpf Urine Bacteria Rare H (None) /hpf Urine Mucus Rare H (None) /hpf - Radiology Data Radiology results: report reviewed (Computed tomography scan abdomen pelvis does show fluid in the small intestine, correlate for enteritis.) Disposition Clinical Impression: Intractable nausea and vomiting Disposition: ADMITTED IP TO THIS HOSP Is patient prescribed a controlled substance at d/c from ED?: No Referrals: Yarely Boothe MD [Primary Care Provider] - 1-2 days Decision Time: 16:08
[2018-06-25 13:25] LABS: Basophils # (A) 0.1 k/uL (0-0.2); Basophils % (A) 1 %; Eosinophils # (A) 0.2 k/uL (0-0.7); Eosinophils % (A) 3 %; HCT 32.8 % (34.0-46.0); HGB 10.5 gm/dL (11.4-16.0); Lymphocytes # (A) 1.9 k/uL (1.0-4.8); Lymphocytes % (A) 25 %; MCH 25.3 pg (25.0-35.0); MCHC 32.2 g/dL (31.0-37.0); MCV 78.5 fL (80.0-100.0); Mean Platelet Volume 7.2; Monocytes # (A) 0.2 k/uL (0-1.0); Monocytes % (A) 3 %; Neutrophils # (A) 4.9 k/uL (1.3-7.7); Neutrophils % (A) 66 %; Platelet Count 315 k/uL (150-450); RBC 4.17 m/uL (3.80-5.40); RDW 15.7 % (11.5-15.5); WBC 7.5 k/uL (3.8-10.6)
[2018-06-25 13:31] LABS: ALT 22 U/L (9-52); AST 21 U/L (14-36); Albumin 4.3 g/dL (3.5-5.0); Alkaline Phosphatase 129 U/L (38-126); Amylase 58 U/L (30-110); Anion Gap 7 mmol/L; Blood Urea Nitrogen 15 mg/dL (7-17); Calcium 9.1 mg/dL (8.4-10.2); Carbon Dioxide 29 mmol/L (22-30); Chloride 102 mmol/L (98-107); Creatine Kinase 101 U/L (30-135); Glucose 142 mg/dL (74-99); INR 0.9 (<1.2); Lipase 72 U/L (23-300); Partial Thromboplastin Time 22.1 sec (22.0-30.0); Potassium 4.4 mmol/L (3.5-5.1); Prothrombin Time 9.5 sec (9.0-12.0); Sodium 138 mmol/L (137-145); Total Bilirubin 0.8 mg/dL (0.2-1.3); Total Protein 7.2 g/dL (6.3-8.2)
[2018-06-25 14:03] LABS: Appearance,Urine Cloudy (Clear); Bacteria,Urine Rare /hpf; Bilirubin,Urine Negative (Negative); Blood,Urine Moderate (Negative); Color,Urine Yellow; Glucose,Urine (UA) Negative (Negative); Ketones,Urine Negative (Negative); Leukocyte Esterase,Urine Trace (Negative); Mucus,Urine Rare /hpf; Nitrite,Urine Negative (Negative); Protein,Urine Trace (Negative); RBC,Urine 119 /hpf (0-5); Specific Gravity,Urine 1.022 (1.001-1.035); Squamous Epithelial Cell,Urine 4 /hpf (0-4); WBC,Urine 8 /hpf (0-5)
[2018-06-25] MEDS ORDERED: diphenhydrAMINE 50 MG/ML 1 ML VIAL IVP STA (14:44)
--- NOTE | 2018-06-25 14:56 | CT ---
EXAMINATION TYPE: CT abdomen pelvis w con DATE OF EXAM: 06/25/2018 COMPARISON: 05/26/2018 HISTORY: Upper Abdominal pain with nausea CT DLP: 1783.4 mGycm CONTRAST: CT scan of the abdomen and pelvis is performed with Oral Contrast and with IV Contrast, patient injec natali with 100 mL of Isovue 300. FINDINGS: LUNG BASES-: No visible nodule. No infiltrate. LIVER/GB: Cholecystectomy clips are in place. No space occupying hepatic lesion. Biliary tree is o f normal caliber. PANCREAS: No inflammation. No distinct mass. SPLEEN: No splenic enlargement. No lesion seen. ADRENALS: No nodule. No thickening. KIDNEYS/BLADDER: No hydronephrosis. No nephrolithiasis. No distinct renal mass. Urinary bladder g rossly unremarkable. BOWEL: Postsurgical changes about the stomach and small bowel. Mild wall thickening remaining in the fluid distention of the jejunal loops may reflect enteritis. Correlate clinically. GENITAL ORGANS: No gross abnormality. LYMPH NODES: No greater than 1cm abdominal or pelvic lymph nodes are appreciated. AORTA: No significant abnormality. OSSEOUS STRUCTURES: No significant abnormality is seen. OTHER: No significant additional abnormality is seen. IMPRESSION: 1. Correlate for small bowel enteritis.
[2018-06-25] MEDS ORDERED: ONDANSETRON 4 MG/2 ML VIAL IVP PRN (16:08)
[2018-06-25] MEDS ORDERED: PROCHLORPERAZINE 5 MG TAB PO PRN (16:08)
[2018-06-25] MEDS ORDERED: NALOXONE 0.4 MG/ML 1 ML VIAL IV PRN (16:08)
[2018-06-25 17:29] VITALS: BMI 46.8
[2018-06-25] MEDS: SODIUM CHLORIDE 0.9% 1,000 ML IV SCH (18:28)
[2018-06-25] MEDS ORDERED: SODIUM CHLORIDE 0.9% 2,000 ML IV ONE (20:00)
--- NOTE | 2018-06-25 20:06 | P.GSHP ---
History of Present Illness H&P Date: 06/25/18 Patient seen and evaluated and presents with intractable nausea vomiting, including colitis and UTI. Past Medical History Past Medical History: Asthma, Blood Disorder, Chest Pain / Angina, COPD, Diabetes Mellitus, Fibromyalgia, GERD/Reflux, Hearing Disorder / Deafness, Hyperlipidemia, Hypertension, Liver Disease, Mitral Valve Prolapse (MVP), Musculoskeletal Disorder, Osteoarthritis (OA), Pneumonia, Respiratory Disorder, Sleep Apnea/CPAP/BIPAP Additional Past Medical History / Comment(s): MIGRAINES, DEGENERATIVE DISC DISEASE, FATTY LIVER, LEIDEN FACTOR 5, OCCASIONAL SWELLING IN LOWER EXT.NEUROPATHY, RLS, diabetes is in remission since surgery, chronic back pain, PATIENT HAS BEEN OFF MEDS FOR DIABETES SINCE BARIATRIC SURGERY History of Any Multi-Drug Resistant Organisms: None Reported Past Surgical History: Adenoidectomy, Appendectomy, Bariatric Surgery, Bowel Resection, Breast Surgery, Section, Cholecystectomy, Ear Surgery, Heart Catheterization, Hernia Repair, Orthopedic Surgery, Tonsillectomy Additional Past Surgical History / Comment(s): ARTHROSCOPY RT KNEE X3, RT BREAST BX-NEG, (13) MYRINGOTOMYS. laparoscopic danielle-en-y with lysis of adhesions 2013; Surgical wound debridement x3 ; SX TO REMOVED SCAR TISSUE FROM PREVIOUS ABD SX ;EGD ; LAP EXAM- APPY SMALL BOWEL OBSTRUCTION LYSIS OFF ADHESIONS, 3 hernia repairs, 3 bowel resection, 07/2016 colon resection, adhesions removed 03/2018 Past Anesthesia/Blood Transfusion Reactions: No Reported Reaction Additional Past Anesthesia/Blood Transfusion Reaction / Comment(s): SEVERE HEADACHE AFTER LAST SCOPE, clausterphobia Past Psychological History: Anxiety, Bipolar, Depression, PTSD Additional Psychological History / Comment(s): SOCIAL PHOBIA. pt lives with nestor and a special needs son. has cpap machine and cane that she uses as needed Smoking Status: Former smoker Past Alcohol Use History: None Reported Additional Past Alcohol Use History / Comment(s): OCC CIG USE IN PAST age 20 to age 21- ONE CIG PER MONTH OR LESS Past Drug Use History: None Reported - Past Family History Mother Family Medical History: Deep Vein Thrombosis (DVT), Hypertension, Pulmonary Embolus, Thyroid Disorder Additional Family Medical History / Comment(s): FACTOR 5 LEIDEN, MVP Father Family Medical History: Diabetes Mellitus, Hypertension, Myocardial Infarction ([place]) Additional Family Medical History / Comment(s): AGE 59 [place] Medications and Allergies Home Medications Medication Instructions Recorded Confirmed Type RX: Gabapentin 800 mg PO TID 03/30/15 06/25/18 History RX: Albuterol Inhaler [Ventolin 2 puff INHALATION RT-Q6H PRN 11/28/15 06/25/18 History Hfa Inhaler] RX: Cyclobenzaprine [Flexeril] 10 mg PO BID 08/05/16 06/25/18 History RX: Budesonide/Formoterol Fumarate 2 puff INHALATION RT-BID 01/22/18 06/25/18 History [Symbicort 80-4.5 Mcg Inhaler] RX: Ferrous Sulfate [Feosol] 325 mg PO TID 01/22/18 06/25/18 History RX: Metoclopramide HCl [Reglan] 5 mg PO DAILY PRN 01/22/18 06/25/18 History RX: Metoprolol Succinate [Toprol 50 mg PO DAILY 01/22/18 06/25/18 History XL] RX: Nitroglycerin Sl Tabs 0.4 mg PO Q5M PRN 01/22/18 06/25/18 History [Nitrostat] RX: SUMAtriptan SUCCINATE [Imitrex] 50 mg PO ONCE PRN 01/22/18 06/25/18 History RX: Vit B Complx C/Folic Acid/Zinc 1 tab PO DAILY 03/04/18 06/25/18 History [Renaplex Tablet] RX: Zinc 50 mg PO DAILY 03/04/18 06/25/18 History RX: rOPINIRole HCL [Requip] 2 mg PO TID 03/21/18 06/25/18 History RX: Cholecalciferol (Vitamin D3) 10,000 unit PO DAILY 03/23/18 06/25/18 History [Vitamin D3] RX: Magnesium Oxide 400 mg PO DAILY 03/23/18 06/25/18 History RX: Omeprazole 40 mg PO DAILY #14 capsule.dr 04/02/18 06/25/18 Rx RX: Ondansetron Odt [Zofran ODT] 4 mg PO Q8HR PRN #10 tab 04/02/18 06/25/18 Rx Polyethylene Glycol 3350 [Miralax] 17 gm PO DAILY PRN #15 packet 05/28/18 06/25/18 Rx RX: Lisinopril [Zestril] 5 mg PO DAILY #0 05/28/18 06/25/18 Rx RX: Furosemide [Lasix] 20 mg PO DAILY PRN 05/29/18 06/25/18 History Allergies Allergy/AdvReac Type Severity Reaction Status Date / Time Sulfa (Sulfonamide Allergy Severe Anaphylaxis Verified 06/25/18 13:20 Antibiotics) adhesive tape Allergy BLISTERS Verified 06/25/18 13:20 amoxicillin [From Augmentin] Allergy Rash/Hives Verified 06/25/18 13:20 clavulanic acid Allergy Rash/Hives Verified 06/25/18 13:20 [From Augmentin] codeine Allergy ABDOMINAL Verified 06/25/18 13:20 PAIN, MIGRAINE HEADACHE Iodinated Contrast- Oral and Allergy Itching Verified 06/25/18 14:41 IV Dye morphine Allergy Itching Verified 06/25/18 13:20 Penicillins Allergy Rash/Hives Verified 06/25/18 13:20 adhesive AdvReac Itching Verified 06/25/18 13:20 artificial sweetners Allergy Nausea, Uncoded 06/25/18 12:46 MIGRAINE HEADACHE Surgical - Exam Vital Signs Temp Pulse Resp BP Pulse Ox 98.7 F 83 20 157/95 99 06/25/18 12:44 06/25/18 12:44 06/25/18 12:44 06/25/18 12:44 06/25/18 12:44 Results - Labs 06/25/18 13:11 06/25/18 13:11 Abnormal Lab Results - Last 24 Hours (Table) 06/25/18 06/25/18 06/25/18 Range/Units 13:11 13:11 13:11 Hgb 10.5 L (11.4-16.0) gm/dL Hct 32.8 L (34.0-46.0) % MCV 78.5 L (80.0-100.0) fL RDW 15.7 H (11.5-15.5) % Glucose 142 H (74-99) mg/dL Alkaline Phosphatase 129 H (38-126) U/L Urine Appearance Cloudy H (Clear) Urine Protein Trace H (Negative) Urine Blood Moderate H (Negative) Ur Leukocyte Esterase Trace H (Negative) Urine RBC 119 H (0-5) /hpf Urine WBC 8 H (0-5) /hpf Urine Bacteria Rare H (None) /hpf Urine Mucus Rare H (None) /hpf Diabetes panel 06/25/18 Range/Units 13:11 Sodium 138 (137-145) mmol/L Potassium 4.4 (3.5-5.1) mmol/L Chloride 102 (98-107) mmol/L Carbon Dioxide 29 (22-30) mmol/L BUN 15 (7-17) mg/dL Creatinine 0.54 (0.52-1.04) mg/dL Glucose 142 H (74-99) mg/dL Calcium 9.1 (8.4-10.2) mg/dL AST 21 (14-36) U/L ALT 22 (9-52) U/L Alkaline Phosphatase 129 H (38-126) U/L Total Protein 7.2 (6.3-8.2) g/dL Albumin 4.3 (3.5-5.0) g/dL Calcium panel 06/25/18 Range/Units 13:11 Calcium 9.1 (8.4-10.2) mg/dL Albumin 4.3 (3.5-5.0) g/dL Pituitary panel 06/25/18 Range/Units 13:11 Sodium 138 (137-145) mmol/L Potassium 4.4 (3.5-5.1) mmol/L Chloride 102 (98-107) mmol/L Carbon Dioxide 29 (22-30) mmol/L BUN 15 (7-17) mg/dL Creatinine 0.54 (0.52-1.04) mg/dL Glucose 142 H (74-99) mg/dL Calcium 9.1 (8.4-10.2) mg/dL Adrenal panel 06/25/18 Range/Units 13:11 Sodium 138 (137-145) mmol/L Potassium 4.4 (3.5-5.1) mmol/L Chloride 102 (98-107) mmol/L Carbon Dioxide 29 (22-30) mmol/L BUN 15 (7-17) mg/dL Creatinine 0.54 (0.52-1.04) mg/dL Glucose 142 H (74-99) mg/dL Calcium 9.1 (8.4-10.2) mg/dL Total Bilirubin 0.8 (0.2-1.3) mg/dL AST 21 (14-36) U/L ALT 22 (9-52) U/L Alkaline Phosphatase 129 H (38-126) U/L Total Protein 7.2 (6.3-8.2) g/dL Albumin 4.3 (3.5-5.0) g/dL
[2018-06-25] MEDS: METOCLOPRAMIDE 5 MG/ML 2 ML VIAL IVP SCH (20:40)
[2018-06-25] MEDS: diphenhydrAMINE 50 MG/ML 1 ML VIAL IVP PRN (20:49)
[2018-06-25] MEDS: LEVOFLOXACIN 500MG-D5W PMX 500 MG in DEXTROSE/WATER 1 100ML.BAG IVPB SCH (20:55)
[2018-06-25] MEDS ORDERED: ALBUTEROL NEBULIZED 2.5 MG/3 ML INHALATION PRN (22:22)
[2018-06-26] MEDS: SODIUM CHLORIDE 0.9% 1,000 ML IV SCH ×3 (00:15→23:47)
[2018-06-26] MEDS: ACETAMINOPHEN TAB 325 MG TAB PO PRN ×4 (00:15→23:49)
[2018-06-26] MEDS: METOCLOPRAMIDE 5 MG/ML 2 ML VIAL IVP SCH ×4 (02:21→23:49)
[2018-06-26] MEDS: diphenhydrAMINE 50 MG/ML 1 ML VIAL IVP PRN ×4 (02:22→23:49)
[2018-06-26] MEDS: metroNIDAZOLE-NS PMX 500 MG in SALINE 1 100ML.BAG IVPB SCH ×5 (05:29→23:48)
[2018-06-26] MEDS: SYMBICORT 80-4.5 MCG INHALER INHALATION SCH ×2 (07:33→20:59)
[2018-06-26] MEDS: GABAPENTIN 400 MG CAP PO SCH ×3 (09:48→23:48)
[2018-06-26] MEDS: PANTOPRAZOLE 40 MG/10 ML VIAL IV SCH (09:49)
[2018-06-26] MEDS: METOPROLOL SUCCINATE (ER) 50 MG TAB.ER.24H PO SCH (09:49)
--- NOTE | 2018-06-26 11:33 | P.PN ---
Subjective Progress Note Date: 06/26/18 CHIEF COMPLAINT: Nausea vomiting HISTORY OF PRESENT ILLNESS: Patient seen and examined at the bedside with Dr. Dumont. Patient reports mild nausea this morning but denies vomiting. Passing flatus but denies bowel movement. Denies abdominal pain. PHYSICAL EXAM: VITAL SIGNS: Reviewed. GENERAL: Well-developed in no acute distress. HEENT: No sclera icterus. Extraocular movements grossly intact. Moist buccal mucosa. Head is atraumatic, normocephalic. ABDOMEN: Soft. Nondistended. Nontender. NEUROLOGIC: Alert and oriented. Cranial nerves II through XII grossly intact. ASSESSMENT: 1. Intractable nausea and vomiting PLAN: 1. Clear liquid diet today. NPO after midnight 2. 2L GoLYTELY prep today 3. Patient to undergo EGD and colonoscopy tomorrow with Dr. Dumont Nurse practitioner note has been reviewed by physician. Signing provider agrees with the documented findings, assessment, and plan of care. Objective - Vital Signs Vital signs: Vital Signs Temp 98.1 F 06/26/18 07:05 Pulse 61 06/26/18 07:05 Resp 18 06/26/18 07:05 BP 168/83 06/26/18 07:05 Pulse Ox 96 06/26/18 07:05 Intake & Output 06/25/18 06/26/18 06/26/18 18:59 06:59 18:59 Intake Total 2250 Balance 2250 Weight 108.862 kg Intake: Intake, IV Titration 2250 Amount Sodium Chloride 0.9% 1, 250 000 ml @ 125 mls/hr IV . Q8H [facility] Rx#:[id number] Sodium Chloride 0.9% 2, 2000 000 ml @ 999 mls/hr IV . Q2H1M [facility] Rx#:[id number] Other: Voiding Method Toilet # Voids 2 - Labs CBC & Chem 7: 06/25/18 13:11 06/25/18 13:11 Labs: Abnormal Lab Results - Last 24 Hours (Table) 06/25/18 06/25/18 06/25/18 Range/Units 13:11 13:11 13:11 Hgb 10.5 L (11.4-16.0) gm/dL Hct 32.8 L (34.0-46.0) % MCV 78.5 L (80.0-100.0) fL RDW 15.7 H (11.5-15.5) % Glucose 142 H (74-99) mg/dL Alkaline Phosphatase 129 H (38-126) U/L Urine Appearance Cloudy H (Clear) Urine Protein Trace H (Negative) Urine Blood Moderate H (Negative) Ur Leukocyte Esterase Trace H (Negative) Urine RBC 119 H (0-5) /hpf Urine WBC 8 H (0-5) /hpf Urine Bacteria Rare H (None) /hpf Urine Mucus Rare H (None) /hpf Assessment and Plan (1) Intractable nausea and vomiting Current Visit: Yes Status: Acute Code(s): R11.2 - NAUSEA WITH VOMITING, UNSPECIFIED SNOMED Code(s): 409940704
[2018-06-26] MEDS ORDERED: PEG 3350-NA SULF,BICARB,CL/KCL 4,000 ML BOTTLE PO ONE (13:00)
[2018-06-26] MEDS: CYCLOBENZAPRINE 10 MG TAB PO SCH ×2 (14:40→23:48)
[2018-06-26] MEDS ORDERED: LIDOCAINE 1% 20 ML VIAL (10MG/ML) FOR IV START INTRADERMA PRN (14:40)
[2018-06-26] MEDS: LACTATED RINGERS 1,000 ML IV SCH (17:22)
--- NOTE | 2018-06-26 19:57 | P.PN ---
Progress Note - Text Progress Note Date: 06/26/18 Patient seen and reevaluated from this morning. Patient reports feeling somewhat better. She is currently on her bowel prep. We'll proceed with both an upper and lower endoscopy.
[2018-06-26] MEDS: LEVOFLOXACIN 500MG-D5W PMX 500 MG in DEXTROSE/WATER 1 100ML.BAG IVPB SCH (22:06)
[2018-06-27] MEDS: SODIUM CHLORIDE 0.9% 1,000 ML IV SCH ×2 (00:11→07:56)
[2018-06-27] MEDS: METOCLOPRAMIDE 5 MG/ML 2 ML VIAL IVP SCH ×3 (04:56→14:52)
[2018-06-27] MEDS: ACETAMINOPHEN TAB 325 MG TAB PO PRN (05:13)
[2018-06-27] MEDS: metroNIDAZOLE-NS PMX 500 MG in SALINE 1 100ML.BAG IVPB SCH ×2 (05:13→13:22)
[2018-06-27] MEDS: SYMBICORT 80-4.5 MCG INHALER INHALATION SCH (07:26)
[2018-06-27] MEDS: diphenhydrAMINE 50 MG/ML 1 ML VIAL IVP PRN ×2 (07:55→14:51)
[2018-06-27] MEDS: GABAPENTIN 400 MG CAP PO SCH (07:55)
[2018-06-27] MEDS: PANTOPRAZOLE 40 MG/10 ML VIAL IV SCH (07:55)
[2018-06-27] MEDS: METOPROLOL SUCCINATE (ER) 50 MG TAB.ER.24H PO SCH (07:55)
[2018-06-27] MEDS: CYCLOBENZAPRINE 10 MG TAB PO SCH (13:21)
[2018-06-27] MEDS: LACTATED RINGERS 1,000 ML IV SCH (13:21)
[2018-06-27] MEDS ORDERED: GLYCOPYRROLATE 0.2 MG/ML 2 ML VIAL ONE (13:48)
[2018-06-27] MEDS ORDERED: PROPOFOL 10 MG/ML 20 ML VIAL IV ONE (13:48)
[2018-06-27] MEDS ORDERED: LIDOCAINE 1% INJ 10MG/ML (20 ML MDV) ONE (13:48)
[2018-06-27] MEDS ORDERED: IV FLUID CONTINUATION 600 ML IV ONE (13:51)
--- NOTE | 2018-06-27 14:26 | P.PCN ---
Date of Procedure: 06/27/18 Description of Procedure: PREOPERATIVE DIAGNOSIS: Dysphagia. Intractable nausea with vomiting Morbid obesity due to excess calories, BMI 46.9 POSTOPERATIVE DIAGNOSIS: Dysphagia. Intractable nausea with vomiting Morbid obesity due to excess calories, BMI 46.9 Gastrojejunal stricture with chronic ulcer without perforation OPERATION: Esophagogastrojejunoscopy with balloon dilatation from 16 to 20 mm. SURGEON: Latricia Dumont MD ANESTHESIA: MAC. INDICATIONS: The patient is a 47-year-old female who presents with a history of dysphagia, including intractable nausea and vomiting. Benefits and risks of the procedure were described. Informed consent was obtained. DESCRIPTION: The patient was brought into the endoscopy suite and laid in the left lateral decubitus position. After a timeout was confirmed, the procedure was initiated. An Olympus gastroscope was passed along the posterior oropharynx down to the distal esophagus where the squamocolumnar junction was unremarkable. The gastric pouch was entered. A gastrojejunal stricture of 16 mm was found as the adult gastroscope was 9.5 mm in size. A [place] [employer] balloon dilator was placed through the scope. Final insufflation up to 20 mm was performed with a total of 2 minutes. The scope was advanced up to 60 cm from the incisors into the Barb limb. The mucosa of the gastrojejunal anastomosis was intact. However chronic gastrojejunal marginal ulcer was encountered. No full-thickness injury was encountered. The GI tract was desufflated. The patient tolerated the procedure well. FINDINGS: Stricture of approximately 16 mm encountered. Chronic gastrojejunal ulceration encountered, 3 mm superficial Successful balloon dilatation to 20 mm. RECOMMENDATIONS: Liquid diet. Upper endoscopy as needed.
[2018-06-27 15:01] VITALS: PULSE 68
[2018-06-27 16:01] VITALS: BP 170/66; RESP 16; TEMP 97.9
--- NOTE | 2018-06-27 17:16 | P.DS ---
Providers Date of admission: 06/25/18 16:08 Expected date of discharge: 06/27/18 Attending physician: Latricia Dumont Primary care physician: Yarely Boothe MD Plan - Discharge Summary New Discharge Prescriptions: No Action Gabapentin 800 mg PO TID Albuterol Inhaler [Ventolin Hfa Inhaler] 2 puff INHALATION RT-Q6H PRN PRN Reason: Shortness Of Breath Cyclobenzaprine [Flexeril] 10 mg PO BID SUMAtriptan SUCCINATE [Imitrex] 50 mg PO ONCE PRN PRN Reason: ONSET OF HEADACHE Nitroglycerin Sl Tabs [Nitrostat] 0.4 mg PO Q5M PRN PRN Reason: Chest Pain Metoprolol Succinate [Toprol XL] 50 mg PO DAILY Metoclopramide HCl [Reglan] 5 mg PO DAILY PRN PRN Reason: ABDOMINAL PAIN Ferrous Sulfate [Feosol] 325 mg PO TID Budesonide/Formoterol Fumarate [Symbicort 80-4.5 Mcg Inhaler] 2 puff INHALATION RT-BID Vit B Complx C/Folic Acid/Zinc [Renaplex Tablet] 1 tab PO DAILY Zinc 50 mg PO DAILY rOPINIRole HCL [Requip] 2 mg PO TID Magnesium Oxide 400 mg PO DAILY Cholecalciferol (Vitamin D3) [Vitamin D3] 10,000 unit PO DAILY Omeprazole 40 mg PO DAILY #14 capsule. Ondansetron Odt [Zofran ODT] 4 mg PO Q8HR PRN #10 tab PRN Reason: Nausea Lisinopril [Zestril] 5 mg PO DAILY #0 Polyethylene Glycol 3350 [Miralax] 17 gm PO DAILY PRN #15 packet PRN Reason: Constipation Furosemide [Lasix] 20 mg PO DAILY PRN PRN Reason: Edema Discharge Medication List Gabapentin 800 mg PO TID 03/30/15 [History] Albuterol Inhaler [Ventolin Hfa Inhaler] 2 puff INHALATION RT-Q6H PRN 11/28/15 [History] Cyclobenzaprine [Flexeril] 10 mg PO BID 08/05/16 [History] Budesonide/Formoterol Fumarate [Symbicort 80-4.5 Mcg Inhaler] 2 puff INHALATION RT-BID 01/22/18 [History] Ferrous Sulfate [Feosol] 325 mg PO TID 01/22/18 [History] Metoclopramide HCl [Reglan] 5 mg PO DAILY PRN 01/22/18 [History] Metoprolol Succinate [Toprol XL] 50 mg PO DAILY 01/22/18 [History] Nitroglycerin Sl Tabs [Nitrostat] 0.4 mg PO Q5M PRN 01/22/18 [History] SUMAtriptan SUCCINATE [Imitrex] 50 mg PO ONCE PRN 01/22/18 [History] Vit B Complx C/Folic Acid/Zinc [Renaplex Tablet] 1 tab PO DAILY 03/04/18 [History] Zinc 50 mg PO DAILY 03/04/18 [History] rOPINIRole HCL [Requip] 2 mg PO TID 03/21/18 [History] Cholecalciferol (Vitamin D3) [Vitamin D3] 10,000 unit PO DAILY 03/23/18 [History] Magnesium Oxide 400 mg PO DAILY 03/23/18 [History] Omeprazole 40 mg PO DAILY #14 capsule.dr 04/02/18 [Rx] Ondansetron Odt [Zofran ODT] 4 mg PO Q8HR PRN #10 tab 04/02/18 [Rx] Lisinopril [Zestril] 5 mg PO DAILY #0 05/28/18 [Rx] Polyethylene Glycol 3350 [Miralax] 17 gm PO DAILY PRN #15 packet 05/28/18 [Rx] Furosemide [Lasix] 20 mg PO DAILY PRN 05/29/18 [History] Follow up Appointment(s)/Referral(s): Latricia Dumont MD [STAFF PHYSICIAN] - 07/16/18 Yarely Boothe MD [Primary Care Provider] - 1-2 days Patient Instructions/Handouts: *Surgery [facility] - (Anesthesia) Discharge Instructions Outpatient Surgery Discharge Disposition: HOME SELF-CARE
--- NOTE | 2018-06-27 17:20 | P.PCN ---
Date of Procedure: 06/27/18 Description of Procedure: PREOPERATIVE DIAGNOSIS: Diarrhea with colitis Generalized abdominal pain History of sigmoid volvulus POSTOPERATIVE DIAGNOSIS: Diarrhea with colitis Generalized abdominal pain History of sigmoid volvulus OPERATION: Colonoscopy to the Ascending colon Colonoscopy with random cold forceps biopsy for colitis SURGEON: Latricia Dumont MD. ANESTHESIA: MAC. INDICATIONS: The patient is a 47-year-old female who presents with colitis. Benefits and risks were described and informed consent was obtained. DESCRIPTION OF PROCEDURE: The patient had undergone Nulytely prep. She had been brought into the operating room and laid in the left lateral decubitus position. After adequate intravenous sedation, the rectum was examined with 2% lidocaine jelly. No external hemorrhoids were encountered. The rectal tone was within normal limits. No lesions were palpated in the rectal vault. An Olympus colonoscope was advanced however the sigmoid colon was highly redundant and abdominal wall pressure was used to advance the scope with length limited to the ascending colon. The prep was fair. The scope was removed with visualization of each mucosal fold. No scattered diverticulosis was encountered. No colonic polyps were found. Random biopsies were obtained to evaluate for colitis microscopic. Retroflexion of the scope demonstrated no internal hemorrhoids. The colon was desufflated. The patient had tolerated the procedure well. Withdrawal time was over 6 minutes. FINDINGS: Aronchick preparation quality scale 3 (1-5) No internal hemorrhoids No external prolapsed hemorrhoids. No arteriovenous malformations. No adenomatous polyps. No scattered diverticulosis was encountered. Random biopsies were obtained to evaluate for colitis microscopic. RECOMMENDATIONS: Lower endoscopy as needed Plan - Discharge Summary New Discharge Prescriptions: No Action Gabapentin 800 mg PO TID Albuterol Inhaler [Ventolin Hfa Inhaler] 2 puff INHALATION RT-Q6H PRN PRN Reason: Shortness Of Breath Cyclobenzaprine [Flexeril] 10 mg PO BID SUMAtriptan SUCCINATE [Imitrex] 50 mg PO ONCE PRN PRN Reason: ONSET OF HEADACHE Nitroglycerin Sl Tabs [Nitrostat] 0.4 mg PO Q5M PRN PRN Reason: Chest Pain Metoprolol Succinate [Toprol XL] 50 mg PO DAILY Metoclopramide HCl [Reglan] 5 mg PO DAILY PRN PRN Reason: ABDOMINAL PAIN Ferrous Sulfate [Feosol] 325 mg PO TID Budesonide/Formoterol Fumarate [Symbicort 80-4.5 Mcg Inhaler] 2 puff INHALATION RT-BID Vit B Complx C/Folic Acid/Zinc [Renaplex Tablet] 1 tab PO DAILY Zinc 50 mg PO DAILY rOPINIRole HCL [Requip] 2 mg PO TID Magnesium Oxide 400 mg PO DAILY Cholecalciferol (Vitamin D3) [Vitamin D3] 10,000 unit PO DAILY Omeprazole 40 mg PO DAILY #14 capsule. Ondansetron Odt [Zofran ODT] 4 mg PO Q8HR PRN #10 tab PRN Reason: Nausea Lisinopril [Zestril] 5 mg PO DAILY #0 Polyethylene Glycol 3350 [Miralax] 17 gm PO DAILY PRN #15 packet PRN Reason: Constipation Furosemide [Lasix] 20 mg PO DAILY PRN PRN Reason: Edema Discharge Medication List Gabapentin 800 mg PO TID 03/30/15 [History] Albuterol Inhaler [Ventolin Hfa Inhaler] 2 puff INHALATION RT-Q6H PRN 11/28/15 [History] Cyclobenzaprine [Flexeril] 10 mg PO BID 08/05/16 [History] Budesonide/Formoterol Fumarate [Symbicort 80-4.5 Mcg Inhaler] 2 puff INHALATION RT-BID 01/22/18 [History] Ferrous Sulfate [Feosol] 325 mg PO TID 01/22/18 [History] Metoclopramide HCl [Reglan] 5 mg PO DAILY PRN 01/22/18 [History] Metoprolol Succinate [Toprol XL] 50 mg PO DAILY 01/22/18 [History] Nitroglycerin Sl Tabs [Nitrostat] 0.4 mg PO Q5M PRN 01/22/18 [History] SUMAtriptan SUCCINATE [Imitrex] 50 mg PO ONCE PRN 01/22/18 [History] Vit B Complx C/Folic Acid/Zinc [Renaplex Tablet] 1 tab PO DAILY 03/04/18 [History] Zinc 50 mg PO DAILY 03/04/18 [History] rOPINIRole HCL [Requip] 2 mg PO TID 03/21/18 [History] Cholecalciferol (Vitamin D3) [Vitamin D3] 10,000 unit PO DAILY 03/23/18 [History] Magnesium Oxide 400 mg PO DAILY 03/23/18 [History] Omeprazole 40 mg PO DAILY #14 capsule. 04/02/18 [Rx] Ondansetron Odt [Zofran ODT] 4 mg PO Q8HR PRN #10 tab 04/02/18 [Rx] Lisinopril [Zestril] 5 mg PO DAILY #0 05/28/18 [Rx] Polyethylene Glycol 3350 [Miralax] 17 gm PO DAILY PRN #15 packet 05/28/18 [Rx] Furosemide [Lasix] 20 mg PO DAILY PRN 05/29/18 [History] Follow up Appointment(s)/Referral(s): Latricia Dumont MD [STAFF PHYSICIAN] - 07/16/18 Yarely Boothe MD [Primary Care Provider] - 1-2 days Patient Instructions/Handouts: *Sur[facility] - (Anesthesia) Discharge Instructions Outpatient Surgery Discharge Disposition: HOME SELF-CARE
== END 2018-06-27 16:20 | disposition home or self-care (01) ==
LOC: EC 12:25 → 1SOBS 16:08
PROVIDERS: ADMIT Surgery Plastic and Reconstructive Surgery; ATTEND Surgery Plastic and Reconstructive Surgery
DX: K95.89 Other complications of other bariatric procedure (principal); K28.7 Chronic gastrojejunal ulcer without hemorrhage or perforation; K52.9 Noninfective gastroenteritis and colitis, unspecified; R11.2 Nausea with vomiting, unspecified; E66.01 Morbid (severe) obesity due to excess calories; Z68.42 Body mass index [BMI] 45.0-49.9, adult; K59.09 Other constipation; Z98.84 Bariatric surgery status; F31.9 Bipolar disorder, unspecified; F43.10 Post-traumatic stress disorder, unspecified; E78.5 Hyperlipidemia, unspecified; G25.81 Restless legs syndrome; G47.30 Sleep apnea, unspecified; I10 Essential (primary) hypertension; H91.90 Unspecified hearing loss, unspecified ear; N39.0 Urinary tract infection, site not specified; M79.7 Fibromyalgia; I34.1 Nonrheumatic mitral (valve) prolapse; J44.9 Chronic obstructive pulmonary disease, unspecified; K21.9 Gastro-esophageal reflux disease without esophagitis; K59.00 Constipation, unspecified; K76.0 Fatty (change of) liver, not elsewhere classified; G43.909 Migraine, unspecified, not intractable, without status migrainosus; Z79.899 Other long term (current) drug therapy; Z88.1 Allergy status to other antibiotic agents; Z91.041 Radiographic dye allergy status; Z88.5 Allergy status to narcotic agent; Z88.0 Allergy status to penicillin; Z88.2 Allergy status to sulfonamides; Z91.048 Other nonmedicinal substance allergy status; Z87.891 Personal history of nicotine dependence; Z79.51 Long term (current) use of inhaled steroids; Z82.49 Family history of ischemic heart disease and other diseases of the circulatory system; Z83.3 Family history of diabetes mellitus
CPT/HCPCS: 96361 ×3; 96365; 96366; 96367; 96376; 96375; 99285; 36415; 94640 ×3; 88305; 80053; 82150; 82550; 83690; 85025; 85610; 85730; 81001; 81025; 74177; 45380; 43245; G0378 ×3; J1200 ×3; J2765 ×3; J2405; J1956 ×2; J2001; J1170; J2704; C9113 ×3; Q9967; C1726

== ENCOUNTER 2018-09-03 01:00 | Observation (INO) | payer MEDICARE, OTHER ==
--- NOTE | 2018-09-03 02:06 | ED ---
Chest Pain HPI - General Chief Complaint: Chest Pain Stated Complaint: Chest pain, dizzy,nausea,headache Time Seen by Provider: 09/03/18 01:18 Source: patient Mode of arrival: ambulatory Limitations: no limitations - History of Present Illness MD Complaint: chest pain Onset/Timin -: days(s) Onset: during rest Pain Location: substernal Severity: moderate Quality: tightness Consistency: intermittent Improves With: nothing Worsens With: nothing Anginal Symptoms: nausea, diaphoresis, dyspnea Treatments Prior to Arrival: none - Related Data Home Medications Medication Instructions Recorded Confirmed Gabapentin 800 mg PO TID 03/30/15 06/25/18 Albuterol Inhaler [Ventolin Hfa 2 puff INHALATION RT-Q6H PRN 11/28/15 06/25/18 Inhaler] Cyclobenzaprine [Flexeril] 10 mg PO BID 08/05/16 06/25/18 Budesonide/Formoterol Fumarate 2 puff INHALATION RT-BID 01/22/18 06/25/18 [Symbicort 80-4.5 Mcg Inhaler] Ferrous Sulfate [Feosol] 325 mg PO TID 01/22/18 06/25/18 Metoclopramide HCl [Reglan] 5 mg PO DAILY PRN 01/22/18 06/25/18 Metoprolol Succinate [Toprol XL] 50 mg PO DAILY 01/22/18 06/25/18 Nitroglycerin Sl Tabs [Nitrostat] 0.4 mg PO Q5M PRN 01/22/18 06/25/18 SUMAtriptan SUCCINATE [Imitrex] 50 mg PO ONCE PRN 01/22/18 06/25/18 Vit B Complx C/Folic Acid/Zinc 1 tab PO DAILY 03/04/18 06/25/18 [Renaplex Tablet] Zinc 50 mg PO DAILY 03/04/18 06/25/18 rOPINIRole HCL [Requip] 2 mg PO TID 03/21/18 06/25/18 Cholecalciferol (Vitamin D3) 10,000 unit PO DAILY 03/23/18 06/25/18 [Vitamin D3] Magnesium Oxide 400 mg PO DAILY 03/23/18 06/25/18 Furosemide [Lasix] 20 mg PO DAILY PRN 05/29/18 06/25/18 Previous Rx's Medication Instructions Recorded Omeprazole 40 mg PO DAILY #14 capsule. 04/02/18 Ondansetron Odt [Zofran ODT] 4 mg PO Q8HR PRN #10 tab 04/02/18 Lisinopril [Zestril] 5 mg PO DAILY #0 05/28/18 Polyethylene Glycol 3350 [Miralax] 17 gm PO DAILY PRN #15 packet 05/28/18 Allergies Allergy/AdvReac Type Severity Reaction Status Date / Time Sulfa (Sulfonamide Allergy Severe Anaphylaxis Verified 06/25/18 13:20 Antibiotics) adhesive tape Allergy BLISTERS Verified 06/25/18 13:20 amoxicillin [From Augmentin] Allergy Rash/Hives Verified 06/25/18 13:20 clavulanic acid Allergy Rash/Hives Verified 06/25/18 13:20 [From Augmentin] codeine Allergy ABDOMINAL Verified 06/25/18 13:20 PAIN, MIGRAINE HEADACHE Iodinated Contrast- Oral and Allergy Itching Verified 06/25/18 14:41 IV Dye morphine Allergy Itching Verified 06/25/18 13:20 Penicillins Allergy Rash/Hives Verified 06/25/18 13:20 adhesive AdvReac Itching Verified 06/25/18 13:20 artificial sweetners Allergy Nausea, Uncoded 06/25/18 12:46 MIGRAINE HEADACHE Review of Systems ROS Statement: Those systems with pertinent positive or pertinent negative responses have been documented in the HPI. ROS Other: All systems not noted in ROS Statement are negative. Constitutional: Denies: fever, chills, weakness Eyes: Denies: vision change Respiratory: Reports: dyspnea. Denies: cough, wheezes, hemoptysis Cardiovascular: Reports: chest pain. Denies: palpitations, orthopnea, edema, syncope Gastrointestinal: Reports: nausea. Denies: abdominal pain, vomiting, diarrhea, constipation Genitourinary: Denies: dysuria, hematuria Musculoskeletal: Denies: back pain Skin: Denies: rash Neurological: Reports: headache. Denies: weakness, numbness, paresthesias, confusion EKG Findings - EKG Results: EKG: interpreted by ELIOT MALDONADOL, sinus rhythm (Rate 69 bpm), normal axis, normal QRS, normal ST/T, no acute changes - [place], Pacemaker, Normal: Normal tracing: normal tracing Past Medical History Past Medical History: Asthma, Blood Disorder, Chest Pain / Angina, COPD, Diabetes Mellitus, Fibromyalgia, GERD/Reflux, Hearing Disorder / Deafness, Hyperlipidemia, Hypertension, Liver Disease, Mitral Valve Prolapse (MVP), Musculoskeletal Disorder, Osteoarthritis (OA), Pneumonia, Respiratory Disorder, Sleep Apnea/CPAP/BIPAP Additional Past Medical History / Comment(s): MIGRAINES, DEGENERATIVE DISC DISEASE, FATTY LIVER, LEIDEN FACTOR 5, OCCASIONAL SWELLING IN LOWER EXT.NEUROPATHY, RLS, diabetes is in remission since surgery, chronic back pain, PATIENT HAS BEEN OFF MEDS FOR DIABETES SINCE BARIATRIC SURGERY History of Any Multi-Drug Resistant Organisms: None Reported Past Surgical History: Adenoidectomy, Appendectomy, Bariatric Surgery, Bowel Resection, Breast Surgery, Section, Cholecystectomy, Ear Surgery, Heart Catheterization, Hernia Repair, Orthopedic Surgery, Tonsillectomy Additional Past Surgical History / Comment(s): ARTHROSCOPY RT KNEE X3, RT BREAST BX-NEG, (13) MYRINGOTOMYS. laparoscopic danielle-en-y with lysis of adhesions 2013; Surgical wound debridement x3 ; SX TO REMOVED SCAR TISSUE FROM PREVIOUS ABD SX;EGD ; LAP EXAM- APPY SMALL BOWEL OBSTRUCTION LYSIS OFF ADHESIONS, 3 hernia repairs, 3 bowel resection, 07/2016 colon resection, adhesions removed 03/2018 Past Anesthesia/Blood Transfusion Reactions: No Reported Reaction Additional Past Anesthesia/Blood Transfusion Reaction / Comment(s): SEVERE HEADACHE AFTER LAST SCOPE, clausterphobia Past Psychological History: Anxiety, Bipolar, Depression, PTSD Smoking Status: Former smoker Past Alcohol Use History: None Reported Past Drug Use History: None Reported - Past Family History Mother Family Medical History: Deep Vein Thrombosis (DVT), Hypertension, Pulmonary Embolus, Thyroid Disorder Additional Family Medical History / Comment(s): FACTOR 5 LEIDEN, MVP Father Family Medical History: Diabetes Mellitus, Hypertension, Myocardial Infarction ([place]) Additional Family Medical History / Comment(s): AGE 59 [place] General Exam Limitations: no limitations General appearance: alert, in no apparent distress Head exam: Present: atraumatic, normocephalic Eye exam: Present: normal appearance. Absent: scleral icterus, conjunctival injection ENT exam: Present: normal oropharynx Neck exam: Present: normal inspection Respiratory exam: Present: normal lung sounds bilaterally. Absent: respiratory distress, wheezes, rales, rhonchi, stridor Cardiovascular Exam: Present: regular rate, normal rhythm, normal heart sounds. Absent: systolic murmur, diastolic murmur, rubs, gallop GI/Abdominal exam: Present: soft. Absent: distended, tenderness, guarding, rebound, rigid Extremities exam: Present: normal inspection, normal capillary refill. Absent: pedal edema, calf tenderness Back exam: Present: normal inspection Neurological exam: Present: alert Skin exam: Present: warm, dry, intact, normal color. Absent: rash Course Vital Signs 09/03/18 09/03/18 09/03/18 01:08 01:33 02:43 Temperature 98.9 F Pulse Rate 71 68 61 Respiratory 18 16 18 Rate Blood Pressure 168/94 185/97 170/90 O2 Sat by Pulse 99 98 100 Oximetry 09/03/18 04:17 Temperature Pulse Rate 80 Respiratory 18 Rate Blood Pressure 170/90 O2 Sat by Pulse 98 Oximetry Disposition Clinical Impression: Chest pain, Anemia Disposition: ADMITTED IP TO THIS HOSP Condition: Good Is patient prescribed a controlled substance at d/c from ED?: No Referrals: None,Stated [Primary Care Provider] - 1-2 days
[2018-09-03] MEDS ORDERED: KETOROLAC 30 MG/ML 1 ML VIAL IVP STA (02:09)
[2018-09-03] MEDS ORDERED: ONDANSETRON 4 MG/2 ML VIAL IVP STA (02:09)
[2018-09-03 02:19] LABS: Basophils # (A) 0.1 k/uL (0-0.2); Basophils % (A) 1 %; Eosinophils # (A) 0.1 k/uL (0-0.7); Eosinophils % (A) 2 %; HCT 28.6 % (34.0-46.0); HGB 9.6 gm/dL (11.4-16.0); Hypochromasia Slight; Lymphocytes # (A) 2.2 k/uL (1.0-4.8); Lymphocytes % (A) 29 %; MCH 25.6 pg (25.0-35.0); MCHC 33.6 g/dL (31.0-37.0); MCV 76.4 fL (80.0-100.0); Mean Platelet Volume 7.5; Microcytosis Slight; Monocytes # (A) 0.4 k/uL (0-1.0); Monocytes % (A) 5 %; Neutrophils # (A) 4.8 k/uL (1.3-7.7); Neutrophils % (A) 61 %; Platelet Count 262 k/uL (150-450); RBC 3.75 m/uL (3.80-5.40); RDW 14.9 % (11.5-15.5); WBC 7.7 k/uL (3.8-10.6)
[2018-09-03 02:28] LABS: ALT 20 U/L (9-52); AST 22 U/L (14-36); African American GFR (CKD) >90 (>60 ml/min/1.73 sqM); Albumin 3.9 g/dL (3.5-5.0); Alkaline Phosphatase 106 U/L (38-126); Amylase 55 U/L (30-110); Anion Gap 9 mmol/L; Blood Urea Nitrogen 16 mg/dL (7-17); Calcium 8.7 mg/dL (8.4-10.2); Carbon Dioxide 25 mmol/L (22-30); Chloride 104 mmol/L (98-107); Glucose 106 mg/dL (74-99); Lipase 55 U/L (23-300); Magnesium 2.1 mg/dL (1.6-2.3); Potassium 4.1 mmol/L (3.5-5.1); Sodium 138 mmol/L (137-145); Total Bilirubin 0.4 mg/dL (0.2-1.3); Total Protein 6.5 g/dL (6.3-8.2)
[2018-09-03 02:32] LABS: D-Dimer 0.57 mg/L FEU (<0.60); INR 0.9 (<1.2); Partial Thromboplastin Time 23.5 sec (22.0-30.0); Prothrombin Time 9.7 sec (9.0-12.0)
--- NOTE | 2018-09-03 02:41 | XR ---
EXAM: XR Chest, 2 Views CLINICAL HISTORY: ITS.REASON XR Reason: Chest Pain TECHNIQUE: Frontal and lateral views of the chest. COMPARISON: No relevant prior studies available. FINDINGS: Lungs: Unremarkable. No consolidation. Pleural space: Unremarkable. No pneumothorax. Heart: No suspicious enlargement. Mediastinum: Unremarkable. Bones/joints: No acute fracture. IMPRESSION: No acute findings.
[2018-09-03] MEDS ORDERED: SODIUM CHLORIDE 0.9% 500 ML 500 ML IV STA (03:26)
[2018-09-03] MEDS ORDERED: diphenhydrAMINE 50 MG/ML 1 ML VIAL IVP STA (03:26)
[2018-09-03] MEDS ORDERED: METOCLOPRAMIDE 5 MG/ML 2 ML VIAL IVP STA (03:26)
[2018-09-03] MEDS ORDERED: NITROGLYCERIN SL TABS 0.4 MG TAB SUBLINGUAL PRN (04:26)
[2018-09-03] MEDS ORDERED: ALBUTEROL NEBULIZED 2.5 MG/3 ML INHALATION PRN (04:28)
[2018-09-03] MEDS ORDERED: SUMAtriptan SUCCINATE 50 MG TAB PO PRN (04:28)
[2018-09-03] MEDS ORDERED: FUROSEMIDE 20 MG TAB PO PRN (04:28)
[2018-09-03] MEDS ORDERED: POLYETHYLENE GLYCOL 3350 17 GM POWD.PACK PO PRN (04:28)
[2018-09-03] MEDS ORDERED: METOCLOPRAMIDE 5 MG TAB PO PRN (04:28)
[2018-09-03] MEDS ORDERED: ONDANSETRON ODT 4 MG TAB PO PRN (04:28)
[2018-09-03] MEDS ORDERED: SODIUM CHLORIDE 0.9% 1,000 ML IV SCH (04:30)
[2018-09-03] MEDS ORDERED: traMADol 50 MG TAB PO PRN (04:51)
[2018-09-03 05:13] VITALS: RESP 16
[2018-09-03 05:36] VITALS: BMI 45.1
[2018-09-03] MEDS ORDERED: PANTOPRAZOLE 40 MG TABLET PO SCH (07:30)
[2018-09-03] MEDS ORDERED: SYMBICORT 80-4.5 MCG INHALER INHALATION SCH (08:00)
[2018-09-03] MEDS ORDERED: FERROUS SULFATE 325 MG TAB PO SCH (09:00)
[2018-09-03] MEDS ORDERED: LISINOPRIL 10 MG TAB PO SCH (09:00)
[2018-09-03] MEDS ORDERED: CYCLOBENZAPRINE 10 MG TAB PO SCH (09:00)
[2018-09-03] MEDS ORDERED: GABAPENTIN 400 MG CAP PO SCH (09:00)
[2018-09-03] MEDS ORDERED: CHOLECALCIFEROL 1,000 UNIT TAB PO SCH (09:00)
[2018-09-03] MEDS ORDERED: METOPROLOL SUCCINATE (ER) 50 MG TAB.ER.24H PO SCH (09:00)
[2018-09-03] MEDS ORDERED: MAGNESIUM OXIDE 400 MG TAB PO SCH (09:00)
[2018-09-03] MEDS ORDERED: KETOROLAC 30 MG/ML 1 ML VIAL IVP SCH (12:00)
--- NOTE | 2018-09-03 12:16 | ECHOF ---
Referral Reason:cp MEASUREMENTS -------- HEIGHT: 152.4 cm WEIGHT: 104.8 kg BP: 170/83 RVIDd: 2.7 cm (< 3.3) IVSd: 1.2 cm (0.6 - 1.1) LVIDd: 4.2 cm (3.9 - 5.3) LVPWd: 1.3 cm (0.6 - 1.1) IVSs: 1.6 cm LVIDs: 2.8 cm LVPWs: 1.7 cm LA Diam: 3.4 cm (2.7 - 3.8) LAESV Index (A-L): 24.97 ml/m Ao Diam: 2.6 cm (2.0 - 3.7) AV Cusp: 2.0 cm (1.5 - 2.6) MV EXCURSION: 17.570 mm (> 18.000) MV EF SLOPE: 99 mm/s (70 - 150) EPSS: 0.5 cm MV E Moshe: 1.06 m/s MV DecT: 180 ms MV A Moshe: 0.84 m/s MV E/A Ratio: 1.26 RAP: 5.00 mmHg RVSP: 24.23 mmHg FINDINGS -------- Sinus rhythm. This was a technically adequate study. The left ventricular size is normal. There is mild concentric left ventricular hypertrophy. Overa ll left ventricular systolic function is normal with, an EF between 60 - 65 %. The right ventricle is normal in size. Normal LA size by volume 22+/-6 ml/m2. The right atrium is normal in size. Interatrial and interventricular septum intact. There is mild aortic valve sclerosis. The mitral valve is normal. Trace tricuspid regurgitation present. Trace/mild (physiologic) pulmonic regurgitation. The aortic root size is normal. Normal inferior vena cava with normal inspiratory collapse consistent with estimated right atrial pre ssure of 5 mmHg. There is no pericardial effusion. CONCLUSIONS -------- 1. Sinus rhythm. 2. This was a technically adequate study. 3. The left ventricular size is normal. 4. There is mild concentric left ventricular hypertrophy. 5. Overall left ventricular systolic function is normal with, an EF between 60 - 65 %. 6. The right ventricle is normal in size. 7. Normal LA size by volume 22+/-6 ml/m2. 8. The right atrium is normal in size. 9. Interatrial and interventricular septum intact. 10. There is mild aortic valve sclerosis. 11. The mitral valve is normal. 12. Trace tricuspid regurgitation present. 13. Trace/mild (physiologic) pulmonic regurgitation. 14. The aortic root size is normal. 15. Normal inferior vena cava with normal inspiratory collapse consistent with estimated right atrial pressure of 5 mmHg. 16. There is no pericardial effusion. HIGHER LEVEL TEACHING ASSISTANT: Elizabeth Bradley RDCS
[2018-09-03 12:20] VITALS: BP 143/83; PULSE 57; TEMP 97.9
--- NOTE | 2018-09-03 13:05 | P.HPIM ---
History of Present Illness 48-year-old female left came in with on and off chest pain has been going on for about 3 days moderate severity which appears to be tightness nonradiating and not associated with the deep breathing, no associated diaphoresis or shortness of breath. Patient was evaluated by cardiology rule out a concurrent syndromes and the cardiology doesn't believe patient's chest pain is cardiac in nature on the etiology of chest pain is not clear. Patient is presently having headache patient does have history of migraine she ran out of Imitrex. Patient will be given a Toradol and will be discharged on Imitrex. Review of Systems REVIEW OF SYSTEMS: CONSTITUTIONAL: No fever, no malaise, no fatigue. HEENT: No recent visual problems or hearing problems. Denied any sore throat. CARDIOVASCULAR: No , orthopnea, PND, no palpitations, no syncope. PULMONARY: No shortness of breath, no cough, no hemoptysis. GASTROINTESTINAL: No diarrhea, no nausea, no vomiting, no abdominal pain. NEUROLOGICAL: no weakness, no numbness. HEMATOLOGICAL: Denies any bleeding or petechiae. GENITOURINARY: Denies any burning micturition, frequency, or urgency. MUSCULOSKELETAL/RHEUMATOLOGICAL: Denies any joint pain, swelling, or any muscle pain. ENDOCRINE: Denies any polyuria or polydipsia. The rest of the 14-point review of systems is negative. Past Medical History Past Medical History: Asthma, Blood Disorder, Chest Pain / Angina, COPD, Diabetes Mellitus, Fibromyalgia, GERD/Reflux, Hearing Disorder / Deafness, Hyperlipidemia, Hypertension, Liver Disease, Mitral Valve Prolapse (MVP), Musculoskeletal Disorder, Osteoarthritis (OA), Pneumonia, Respiratory Disorder, Sleep Apnea/CPAP/BIPAP Additional Past Medical History / Comment(s): MIGRAINES, DEGENERATIVE DISC DISEASE, FATTY LIVER, LEIDEN FACTOR 5, OCCASIONAL SWELLING IN LOWER EXT.NEUROPATHY, RLS, diabetes is in remission since surgery, chronic back pain, PATIENT HAS BEEN OFF MEDS FOR DIABETES SINCE BARIATRIC SURGERY History of Any Multi-Drug Resistant Organisms: None Reported Past Surgical History: Adenoidectomy, Appendectomy, Bariatric Surgery, Bowel Resection, Breast Surgery, Section, Cholecystectomy, Ear Surgery, Heart Catheterization, Hernia Repair, Orthopedic Surgery, Tonsillectomy Additional Past Surgical History / Comment(s): ARTHROSCOPY RT KNEE X3, RT BREAST BX-NEG, (13) MYRINGOTOMYS. laparoscopic danielle-en-y with lysis of adhesions 2014; Surgical wound debridement x3 ; SX TO REMOVED SCAR TISSUE FROM PREVIOUS ABD SX;EGD ; LAP EXAM- APPY SMALL BOWEL OBSTRUCTION LYSIS OFF ADHESIONS, 3 hernia repairs, 3 bowel resection, 07/2016 colon resection, adhesions removed 03/2018 Past Anesthesia/Blood Transfusion Reactions: No Reported Reaction Additional Past Anesthesia/Blood Transfusion Reaction / Comment(s): SEVERE HEADACHE AFTER LAST SCOPE, clausterphobia Smoking Status: Former smoker - Past Family History Mother Family Medical History: Deep Vein Thrombosis (DVT), Hypertension, Pulmonary Embolus, Thyroid Disorder Additional Family Medical History / Comment(s): FACTOR 5 LEIDEN, MVP Father Family Medical History: Diabetes Mellitus, Hypertension, Myocardial Infarction ([place]) Additional Family Medical History / Comment(s): AGE 59 [place] Medications and Allergies Home Medications Medication Instructions Recorded Confirmed Type Gabapentin 800 mg PO TID 03/30/15 09/03/18 History Albuterol Inhaler [Ventolin Hfa 2 puff INHALATION RT-Q6H PRN 11/28/15 09/03/18 History Inhaler] Cyclobenzaprine [Flexeril] 10 mg PO BID 08/05/16 09/03/18 History Budesonide/Formoterol Fumarate 2 puff INHALATION RT-BID 01/22/18 09/03/18 History [Symbicort 80-4.5 Mcg Inhaler] Ferrous Sulfate [Feosol] 325 mg PO TID 01/22/18 09/03/18 History Metoclopramide HCl [Reglan] 5 mg PO DAILY PRN 01/22/18 09/03/18 History Metoprolol Succinate [Toprol XL] 50 mg PO DAILY 01/22/18 09/03/18 History Nitroglycerin Sl Tabs [Nitrostat] 0.4 mg PO Q5M PRN 01/22/18 09/03/18 History Vit B Complx C/Folic Acid/Zinc 1 tab PO DAILY 03/04/18 09/03/18 History [Renaplex Tablet] Zinc 50 mg PO DAILY 03/04/18 09/03/18 History rOPINIRole HCL [Requip] 2 mg PO TID 03/21/18 09/03/18 History Cholecalciferol (Vitamin D3) 10,000 unit PO DAILY 03/23/18 09/03/18 History [Vitamin D3] Magnesium Oxide 400 mg PO DAILY 03/23/18 09/03/18 History Ondansetron Odt [Zofran ODT] 4 mg PO Q8HR PRN #10 tab 04/02/18 09/03/18 Rx Polyethylene Glycol 3350 [Miralax] 17 gm PO DAILY PRN #15 packet 05/28/18 09/03/18 Rx Furosemide [Lasix] 20 mg PO DAILY PRN 05/29/18 09/03/18 History Lisinopril [Zestril] 10 mg PO DAILY 09/03/18 09/03/18 History SUMAtriptan SUCCINATE [Imitrex] 50 mg PO BID PRN #30 tab 09/03/18 Rx Allergies Allergy/AdvReac Type Severity Reaction Status Date / Time Sulfa (Sulfonamide Allergy Severe Anaphylaxis Verified 09/03/18 07:29 Antibiotics) adhesive tape Allergy BLISTERS Verified 09/03/18 07:29 amoxicillin [From Augmentin] Allergy Rash/Hives Verified 09/03/18 07:29 clavulanic acid Allergy Rash/Hives Verified 09/03/18 07:29 [From Augmentin] codeine Allergy ABDOMINAL Verified 09/03/18 07:29 PAIN, MIGRAINE HEADACHE Iodinated Contrast- Oral and Allergy Itching Verified 09/03/18 07:29 IV Dye morphine Allergy Itching Verified 09/03/18 07:29 Penicillins Allergy Rash/Hives Verified 09/03/18 07:29 adhesive AdvReac Itching Verified 09/03/18 07:29 artificial sweetners Allergy Nausea, Uncoded 09/03/18 05:17 MIGRAINE HEADACHE Physical Exam Vitals: Vital Signs Temp Pulse Pulse Resp BP BP BP 09/03/18 12:00 97.9 F 57 L 16 143/83 09/03/18 07:45 98.5 F 64 16 170/83 09/03/18 06:09 16 09/03/18 05:12 98.5 F 59 L 16 168/86 09/03/18 04:17 80 18 170/90 09/03/18 02:43 61 18 170/90 09/03/18 01:33 68 16 185/97 09/03/18 01:08 98.9 F 71 18 168/94 Pulse Ox 09/03/18 12:00 98 09/03/18 07:45 94 L 09/03/18 06:09 09/03/18 05:12 97 09/03/18 04:17 98 09/03/18 02:43 100 09/03/18 01:33 98 09/03/18 01:08 99 Intake and Output 09/02/18 09/03/18 09/03/18 22:59 06:59 14:59 Intake Total 222 Balance 222 Intake: Oral 222 Other: # Voids 1 Weight 104.78 kg PHYSICAL EXAMINATION: GENERAL: The patient is alert and oriented x3, not in any acute distress. Well developed, well nourished. HEENT: Pupils are round and equally reacting to light. EOMI. No scleral icterus. No conjunctival pallor. Normocephalic, atraumatic. No pharyngeal erythema. No thyromegaly. CARDIOVASCULAR: S1 and S2 present. No murmurs, rubs, or gallops. PULMONARY: Chest is clear to auscultation, no wheezing or crackles. ABDOMEN: Soft, nontender, nondistended, normoactive bowel sounds. No palpable organomegaly. MUSCULOSKELETAL: No joint swelling or deformity. EXTREMITIES: No cyanosis, clubbing, or pedal edema. NEUROLOGICAL: Gross neurological examination did not reveal any focal deficits. SKIN: No rashes. Results CBC & Chem 7: 09/03/18 01:30 09/03/18 01:30 Labs: Abnormal Lab Results - Last 24 Hours (Table) 09/03/18 09/03/18 Range/Units 01:30 01:30 RBC 3.75 L (3.80-5.40) m/uL Hgb 9.6 L (11.4-16.0) gm/dL Hct 28.6 L (34.0-46.0) % MCV 76.4 L (80.0-100.0) fL Glucose 106 H (74-99) mg/dL Thrombosis Risk Factor Assmnt - Choose All That Apply Each Factor Represents 1 point: Age 41-60 years, Obesity (BMI >25) Each Risk Factor Represents 3 Points: Positive Factor V Leiden Thrombosis Risk Factor Assessment Total Risk Factor Score: 5 Thrombosis Risk Factor Assessment Level: High Risk Assessment and Plan Plan: -Chest pain: Ruled out acute medicine syndromes, unstable angina, etiology of chest pain is not related appears to be noncardiac evaluated by cardiology. A be musculoskeletal . -Migraine with migraine attacks further management as mentioned above -COPD without any acute exacerbation -Fibromyalgia -Hypertension hyperlipidemia -Vital valve prolapse -Sleep apnea -Bipolar disorder. Patient was resumed on all her above-mentioned medications for above mentioned medical problems clinically doing well. Will be discharged once her headache is better later in the day today and prescription for Imitrex will be provided.
--- NOTE | 2018-09-03 13:05 | P.DS ---
Providers Date of admission: 09/03/18 04:26 Attending physician: Ernestine Rice Consults: 09/03/18 04:26 Consult Physician Routine Consulting Provider: Josefina Weinstein Consult Reason/Comments: chest pain Do you want consulting provider notified?: Yes Primary care physician: Stated None Hospital Course: As mentioned in HPI Patient Condition at Discharge: Good Plan - Discharge Summary New Discharge Prescriptions: Continue Gabapentin 800 mg PO TID Albuterol Inhaler [Ventolin Hfa Inhaler] 2 puff INHALATION RT-Q6H PRN PRN Reason: Shortness Of Breath Cyclobenzaprine [Flexeril] 10 mg PO BID Nitroglycerin Sl Tabs [Nitrostat] 0.4 mg PO Q5M PRN PRN Reason: Chest Pain Metoprolol Succinate [Toprol XL] 50 mg PO DAILY Metoclopramide HCl [Reglan] 5 mg PO DAILY PRN PRN Reason: ABDOMINAL PAIN Ferrous Sulfate [Feosol] 325 mg PO TID Budesonide/Formoterol Fumarate [Symbicort 80-4.5 Mcg Inhaler] 2 puff I NHALATION RT-BID Vit B Complx C/Folic Acid/Zinc [Renaplex Tablet] 1 tab PO DAILY Zinc 50 mg PO DAILY rOPINIRole HCL [Requip] 2 mg PO TID Magnesium Oxide 400 mg PO DAILY Cholecalciferol (Vitamin D3) [Vitamin D3] 10,000 unit PO DAILY Ondansetron Odt [Zofran ODT] 4 mg PO Q8HR PRN #10 tab PRN Reason: Nausea Polyethylene Glycol 3350 [Miralax] 17 gm PO DAILY PRN #15 packet PRN Reason: Constipation Furosemide [Lasix] 20 mg PO DAILY PRN PRN Reason: Edema Lisinopril [Zestril] 10 mg PO DAILY SUMAtriptan SUCCINATE [Imitrex] 50 mg PO BID PRN #30 tab PRN Reason: Migraine Headache Discharge Medication List Gabapentin 800 mg PO TID 03/30/15 [History] Albuterol Inhaler [Ventolin Hfa Inhaler] 2 puff INHALATION RT-Q6H PRN 11/28/15 [ History] Cyclobenzaprine [Flexeril] 10 mg PO BID 08/05/16 [History] Budesonide/Formoterol Fumarate [Symbicort 80-4.5 Mcg Inhaler] 2 puff INHALATION RT-BID 01/22/18 [History] Ferrous Sulfate [Feosol] 325 mg PO TID 01/22/18 [History] Metoclopramide HCl [Reglan] 5 mg PO DAILY PRN 01/22/18 [History] Metoprolol Succinate [Toprol XL] 50 mg PO DAILY 01/22/18 [History] Nitroglycerin Sl Tabs [Nitrostat] 0.4 mg PO Q5M PRN 01/22/18 [History] Vit B Complx C/Folic Acid/Zinc [Renaplex Tablet] 1 tab PO DAILY 03/04/18 [History] Zinc 50 mg PO DAILY 03/04/18 [History] rOPINIRole HCL [Requip] 2 mg PO TID 03/21/18 [History] Cholecalciferol (Vitamin D3) [Vitamin D3] 10,000 unit PO DAILY 03/23/18 [History] Magnesium Oxide 400 mg PO DAILY 03/23/18 [History] Ondansetron Odt [Zofran ODT] 4 mg PO Q8HR PRN #10 tab 04/02/18 [Rx] Polyethylene Glycol 3350 [Miralax] 17 gm PO DAILY PRN #15 packet 05/28/18 [Rx] Furosemide [Lasix] 20 mg PO DAILY PRN 05/29/18 [History] Lisinopril [Zestril] 10 mg PO DAILY 09/03/18 [History] SUMAtriptan SUCCINATE [Imitrex] 50 mg PO BID PRN #30 tab 09/03/18 [Rx] Follow up Appointment(s)/Referral(s): None,Stated [Primary Care Provider] - 3 Days Discharge Disposition: HOME SELF-CARE
[2018-09-03] MEDS ORDERED: ONDANSETRON 4 MG/2 ML VIAL IVP PRN (13:06)
--- NOTE | 2018-09-03 13:22 | P.CRDCN ---
History of Present Illness History of present illness: This is a 48-year-old female past medical history significant for asthma, COPD, diabetes mellitus resolved after surgery, fibromyalgia, gastroesophageal reflux disease, dyslipidemia, hypertension, obstructive sleep apnea, morbid obesity, history of gastric bypass surgery and migraine headaches. 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 She states she is to follow with Dr. Cervantes prior to his chcf. We have been asked to see her in consultation secondary to chest discomfort. She states since Saturday she has not been feeling like herself. She states overall she has been increasingly fatigued, body aches, shortness of breath and intermittent episodes of chest discomfort. Her chest pain is described as a very sharp tight squeezin g sensation in the left precordial region. This has been occurring intermittently for the previous 4 days with no specific aggravating or alleviating factor. It happens sometimes last for 1 minute sometimes lasts for 20 minutes. At times it has occurred at rest and other times it has occurred while she is doing small tasks around her house. Last evening she started having a migraine headache around 9 PM went to lay down when she laid down she had another episode of chest discomfort propping her to come to the hospital for further evaluation. She is seen and examined resting comfortably in bed with lights out with an ongoing migraine headache. She denies any active chest discomfort. EKG reveals sinus mechanism with no acute ST or T wave abnormalities noted. Chest x-ray is negative for an acute cardiopulmonary process. Laboratory data reviewed, WBC 7.7, hemoglobin 9.6, platelets 262, d-dimer 0.57 sodium 138, potassium 4.1, creatinine 0.64, cardiac enzymes negative 2, magnesium 2.1. Current cardiac medications include Toprol 50 mg daily, Lasix 20 mg daily as needed for lower extremity edema on lisinopril 10 mg daily. She underwent cardiac catheterization in 2017 revealed normal coronary arteries. At the time of my exam: CONSTITUTIONAL: Denies fever. Denies chills. EYES: Denies blurred vision. Denies vision changes. Denies eye pain. EARS, NOSE, MOUTH & THROAT: Denies headache. Denies sore throat. Denies ear pain. CARDIOVASCULAR: Denies chest pain. Denies shortness of breath. Denies orthopnea. Denies PND. Denies palpitations. RESPIRATORY: Denies cough. GASTROINTESTINAL: Denies abdominal pain. Denies diarrhea. Denies constipation. Denies nausea. Denies vomiting. MUSCULOSKELETAL: Denies myalgias. INTEGUMENTARY: Denies pruitis. Denies rash. NEUROLOGIC: Denies numbness. Denies tingling. Denies weakness. Complains of headache. PSYCHIATRIC: Denies anxiety. Denies depression. ENDOCRINE: Denies fatigue. Denies weight change. Denies polydipsia. Denies polyurina. GENITOURINARY: Denies burning, hematuria or urgency with micturation. HEMATOLOGIC: Denies history of anemia. Denies bleeding. Blood pressure 143/83 heart rate 57 afebrile maintaining oxygen saturation on room air GENERAL: This is a 48-year-old female in no apparent distress at the time of my examination. HEENT: Head is atraumatic, normocephalic. Pupils are equal, round. Sclerae anicteric. Conjunctivae are clear. Mucous membranes of the mouth are moist. Neck is supple. There is no jugular venous distention. No carotid bruit is heard. LUNGS: Clear to auscultation no wheezes, rales or rhonchi. No chest wall tenderness is noted on palpation or with deep breathing. HEART: Regular rate and rhythm without murmurs, rubs or gallops. S1 and S2 heard. ABDOMEN: Soft, nontender. Bowel sounds are heard. No organomegaly noted. EXTREMITIES: No evidence of peripheral edema and no calf tenderness noted. VASCULAR: Radial and dorsalis pedis pulses palpated, no evidence of clubbing. NEUROLOGIC: Patient is awake, alert and oriented x3. ASSESSMENT Chest pain, atypical for angina. An acute coronary event has been ruled out. Hypertension Headache Fibromyalgia Morbid obesity, BMI 45 PLAN An acute coronary event has been ruled out. Chest pain is atypical for angina. Obtain 2D echocardiogram and doppler study to assess cardiac structure and function. Check lipid profile. Recommend lifestyle modifications of diet and exercise. Ongoing medical management of headache and other multiple complaints not cardiac related. Follow up with Dr. Pino in 2 weeks, will consider outpatient stress testing if needed. Thank you kindly for this consultation. Nurse Practitioner note has been reviewed, I agree with a documented findings and plan of care. Patient was seen and examined. Past Medical History Past Medical History: Asthma, Blood Disorder, Chest Pain / Angina, COPD, Diabetes Mellitus, Fibromyalgia, GERD/Reflux, Hearing Disorder / Deafness, Hyperlipidemia, Hypertension, Liver Disease, Mitral Valve Prolapse (MVP), Musculoskeletal Disorder, Osteoarthritis (OA), Pneumonia, Respiratory Disorder, Sleep Apnea/CPAP/BIPAP Additional Past Medical History / Comment(s): MIGRAINES, DEGENERATIVE DISC DISEASE, FATTY LIVER, LEIDEN FACTOR 5, OCCASIONAL SWELLING IN LOWER EXT.NEUROPATHY, RLS, diabetes is in remission since surgery, chronic back pain, PATIENT HAS BEEN OFF MEDS FOR DIABETES SINCE BARIATRIC SURGERY History of Any Multi-Drug Resistant Organisms: None Reported Past Surgical History: Adenoidectomy, Appendectomy, Bariatric Surgery, Bowel Resection, Breast Surgery, Section, Cholecystectomy, Ear Surgery, Heart Catheterization, Hernia Repair, Orthopedic Surgery, Tonsillectomy Additional Past Surgical History / Comment(s): ARTHROSCOPY RT KNEE X3, RT BREAST BX-NEG, (13) MYRINGOTOMYS. laparoscopic danielle-en-y with lysis of adhesions 2013; Surgical wound debridement x3 ; SX TO REMOVED SCAR TISSUE FROM PREVIOUS ABD SX;EGD ; LAP EXAM- APPY SMALL BOWEL OBSTRUCTION LYSIS OFF ADHESIONS, 3 hernia repairs, 3 bowel resection, 07/2016 colon resection, adhesions removed 03/2018 Past Anesthesia/Blood Transfusion Reactions: No Reported Reaction Additional Past Anesthesia/Blood Transfusion Reaction / Comment(s): SEVERE HEADACHE AFTER LAST SCOPE, clausterphobia Smoking Status: Former smoker - Past Family History Mother Family Medical History: Deep Vein Thrombosis (DVT), Hypertension, Pulmonary Embolus, Thyroid Disorder Additional Family Medical History / Comment(s): FACTOR 5 LEIDEN, MVP Father Family Medical History: Diabetes Mellitus, Hypertension, Myocardial Infarction ([place]) Additional Family Medical History / Comment(s): AGE 59 [place] Medications and Allergies Home Medications Medication Instructions Recorded Confirmed Type Gabapentin 800 mg PO TID 03/30/15 09/03/18 History Albuterol Inhaler [Ventolin Hfa 2 puff INHALATION RT-Q6H PRN 11/28/15 09/03/18 H istory Inhaler] Cyclobenzaprine [Flexeril] 10 mg PO BID 08/05/16 09/03/18 History Budesonide/Formoterol Fumarate 2 puff INHALATION RT-BID 01/22/18 09/03/18 History [Symbicort 80-4.5 Mcg Inhaler] Ferrous Sulfate [Feosol] 325 mg PO TID 01/22/18 09/03/18 History Metoclopramide HCl [Reglan] 5 mg PO DAILY PRN 01/22/18 09/03/18 History Metoprolol Succinate [Toprol XL] 50 mg PO DAILY 01/22/18 09/03/18 History Nitroglycerin Sl Tabs [Nitrostat] 0.4 mg PO Q5M PRN 01/22/18 09/03/18 History Vit B Complx C/Folic Acid/Zinc 1 tab PO DAILY 03/04/18 09/03/18 History [Renaplex Tablet] Zinc 50 mg PO DAILY 03/04/18 09/03/18 History rOPINIRole HCL [Requip] 2 mg PO TID 03/21/18 09/03/18 History Cholecalciferol (Vitamin D3) 10,000 unit PO DAILY 03/23/18 09/03/18 History [Vitamin D3] Magnesium Oxide 400 mg PO DAILY 03/23/18 09/03/18 History Ondansetron Odt [Zofran ODT] 4 mg PO Q8HR PRN #10 tab 04/02/18 09/03/18 Rx Polyethylene Glycol 3350 [Miralax] 17 gm PO DAILY PRN #15 packet 05/28/18 09/03/18 Rx Furosemide [Lasix] 20 mg PO DAILY PRN 05/29/18 09/03/18 History Lisinopril [Zestril] 10 mg PO DAILY 09/03/18 09/03/18 History SUMAtriptan SUCCINATE [Imitrex] 50 mg PO BID PRN #30 tab 09/03/18 Rx Allergies Allergy/AdvReac Type Severity Reaction Status Date / Time Sulfa (Sulfonamide Allergy Severe Anaphylaxis Verified 09/03/18 07:29 Antibiotics) adhesive tape Allergy BLISTERS Verified 09/03/18 07:29 amoxicillin [From Augmentin] Allergy Rash/Hives Verified 09/03/18 07:29 clavulanic acid Allergy Rash/Hives Verified 09/03/18 07:29 [From Augmentin] codeine Allergy ABDOMINAL Verified 09/03/18 07:29 PAIN, MIGRAINE HEADACHE Iodinated Contrast- Oral and Allergy Itching Verified 09/03/18 07:29 IV Dye morphine Allergy Itching Verified 09/03/18 07:29 Penicillins Allergy Rash/Hives Verified 09/03/18 07:29 adhesive AdvReac Itching Verified 09/03/18 07:29 artificial sweetners Allergy Nausea, Uncoded 09/03/18 05:17 MIGRAINE HEADACHE Physical Exam Vitals: Vital Signs Temp Pulse Pulse Resp BP BP Pulse Ox 09/03/18 07:45 98.5 F 64 16 170/83 94 L 09/03/18 06:09 16 09/03/18 05:12 98.5 F 59 L 16 168/86 97 09/03/18 04:17 80 18 170/90 98 09/03/18 02:43 61 18 170/90 100 09/03/18 01:33 68 16 185/97 98 09/03/18 01:08 98.9 F 71 18 168/94 99 Intake and Output 09/02/18 09/03/18 09/03/18 22:59 06:59 14:59 Other: # Voids 1 Weight 104.78 kg Results 09/03/18 01:30 09/03/18 01:30 Cardiac Enzymes 09/03/18 09/03/18 09/03/18 Range/Units 01:30 01:30 07:25 AST 22 (14-36) U/L Troponin I <0.012 <0.012 (0.000-0.034) ng/mL Coagulation 09/03/18 Range/Units 01:30 PT 9.7 (9.0-12.0) sec APTT 23.5 (22.0-30.0) sec CBC 09/03/18 Range/Units 01:30 WBC 7.7 (3.8-10.6) k/uL RBC 3.75 L (3.80-5.40) m/uL Hgb 9.6 L (11.4-16.0) gm/dL Hct 28.6 L (34.0-46.0) % Plt Count 262 (150-450) k/uL Comprehensive Metabolic Panel 09/03/18 Range/Units 01:30 Sodium 138 (137-145) mmol/L Potassium 4.1 (3.5-5.1) mmol/L Chloride 104 (98-107) mmol/L Carbon Dioxide 25 (22-30) mmol/L BUN 16 (7-17) mg/dL Creatinine 0.64 (0.52-1.04) mg/dL Glucose 106 H (74-99) mg/dL Calcium 8.7 (8.4-10.2) mg/dL AST 22 (14-36) U/L ALT 20 (9-52) U/L Alkaline Phosphatase 106 (38-126) U/L Total Protein 6.5 (6.3-8.2) g/dL Albumin 3.9 (3.5-5.0) g/dL Current Medications Generic Name Dose Route Start Last Admin Trade Name Freq PRN Reason Stop Dose Admin Albuterol Sulfate 2.5 mg 09/03/18 04:28 Ventolin Nebulized INHALATION RT-Q6H PRN Shortness Of Breath Aspirin 325 mg 09/04/18 09:00 Aspirin PO DAILY [facility] Budesonide/Formoterol Fumarate 2 puff 09/03/18 08:00 09/03/18 07:00 Symbicort 80-4.5 Mcg Inhaler INHALATION Not Given RT-BID [facility] Cholecalciferol 10,000 unit 09/03/18 09:00 Vitamin D3 (25 Mcg = 1000 Iu) PO DAILY [facility] Cyclobenzaprine HCl 10 mg 09/03/18 09:00 Flexeril PO BID [facility] Ferrous Sulfate 325 mg 09/03/18 09:00 Feosol PO TID [facility] Furosemide 20 mg 09/03/18 04:28 Lasix PO DAILY PRN Edema Gabapentin 800 mg 09/03/18 09:00 Neurontin PO TID [facility] Sodium Chloride 1,000 mls @ 20 mls/hr 09/03/18 04:30 09/03/18 04:46 Saline 0.9% IV 20 mls/hr .Q24H JERALD Administration Lisinopril 5 mg 09/03/18 09:00 Zestril PO DAILY [facility] Magnesium Oxide 400 mg 09/03/18 09:00 Mag-Ox PO DAILY [facility] Metoclopramide HCl 5 mg 09/03/18 04:28 Reglan PO DAILY PRN ABDOMINAL PAIN Metoprolol Succinate 50 mg 09/03/18 09:00 Toprol Xl PO DAILY [facility] Nitroglycerin 0.4 mg 09/03/18 04:26 Nitrostat SUBLINGUAL Q5M PRN Chest Pain Ondansetron HCl 4 mg 09/03/18 04:28 09/03/18 05:42 Zofran Odt PO 4 mg Q8HR PRN Administration Nausea Pantoprazole Sodium 40 mg 09/03/18 07:30 Protonix PO DAILY@0730 [facility] Polyethylene Glycol 17 gm 09/03/18 04:28 Miralax PO DAILY PRN Constipation Ropinirole HCl 2 mg 09/03/18 09:00 Requip PO TID JERALD Sumatriptan Succinate 50 mg 09/03/18 04:28 Imitrex PO ONCE PRN ONSET OF HEADACHE Tramadol HCl 50 mg 09/03/18 04:51 09/03/18 05:42 Ultram PO 50 mg TID PRN Administration Pain Intake and Output 09/02/18 09/03/18 09/03/18 22:59 06:59 14:59 Other: # Voids 1 Weight 104.78 kg 09/03/18 01:30 09/03/18 01:30
[2018-09-03] MEDS ORDERED: ATORVASTATIN 40 MG TAB PO SCH (13:30)
[2018-09-03 13:44] LABS: Cholesterol 200 mg/dL (<200); HDL Cholesterol 47 mg/dL (40-60); LDL Cholesterol,Calculated 118 mg/dL (0-99); Triglycerides 173 mg/dL (<150)
[2018-09-03] MEDS ORDERED: BUTALB/APAP/CAFF 50-325-40MG TAB PO STA (14:11)
--- NOTE | 2018-09-03 14:33 | CT ---
EXAMINATION TYPE: CT brain wo con DATE OF EXAM: 09/03/2018 COMPARISON: September 27, 2009 HISTORY: Headache CT DLP: 1087.[address] of the brain was performed. The ventricles, basal cisterns and sulci overlying the cerebral convexities demonstrate a normal appe arance. There is no evidence for intracranial hemorrhage or sulcal effacement. No mass effects are seen. Osseous calvarium is intact. If symptoms persist consider MRI as clinically warranted. IMPRESSION: 1. No acute intracranial process is seen at this time.
[2018-09-04] MEDS ORDERED: ASPIRIN 325 MG TAB PO SCH (09:00)
== END 2018-09-03 15:44 | disposition home or self-care (01) ==
LOC: EC 01:00 → 1SOBS 04:26
PROVIDERS: ADMIT Internal Medicine; ATTEND Internal Medicine
DX: R07.89 Other chest pain (principal); R61 Generalized hyperhidrosis; R06.00 Dyspnea, unspecified; R11.0 Nausea; R42 Dizziness and giddiness; G43.909 Migraine, unspecified, not intractable, without status migrainosus; Z91.14 Patient's other noncompliance with medication regimen; J44.9 Chronic obstructive pulmonary disease, unspecified; J45.909 Unspecified asthma, uncomplicated; K21.9 Gastro-esophageal reflux disease without esophagitis; M79.7 Fibromyalgia; E78.5 Hyperlipidemia, unspecified; I10 Essential (primary) hypertension; I34.1 Nonrheumatic mitral (valve) prolapse; M19.90 Unspecified osteoarthritis, unspecified site; K76.0 Fatty (change of) liver, not elsewhere classified; D68.51 Activated protein C resistance; Z87.01 Personal history of pneumonia (recurrent); Z99.89 Dependence on other enabling machines and devices; G25.81 Restless legs syndrome; G89.29 Other chronic pain; M54.9 Dorsalgia, unspecified; D64.9 Anemia, unspecified; F31.9 Bipolar disorder, unspecified; G47.33 Obstructive sleep apnea (adult) (pediatric); G62.9 Polyneuropathy, unspecified; F40.240 Claustrophobia; F43.10 Post-traumatic stress disorder, unspecified; H91.90 Unspecified hearing loss, unspecified ear; F41.9 Anxiety disorder, unspecified; Z90.49 Acquired absence of other specified parts of digestive tract; E66.01 Morbid (severe) obesity due to excess calories; Z68.42 Body mass index [BMI] 45.0-49.9, adult; Z98.84 Bariatric surgery status; Z79.899 Other long term (current) drug therapy; Z79.51 Long term (current) use of inhaled steroids; Z87.891 Personal history of nicotine dependence; Z86.39 Personal history of other endocrine, nutritional and metabolic disease; Z91.041 Radiographic dye allergy status; Z91.02 Food additives allergy status; Z88.5 Allergy status to narcotic agent; Z88.0 Allergy status to penicillin; Z88.2 Allergy status to sulfonamides; Z91.048 Other nonmedicinal substance allergy status; Z83.3 Family history of diabetes mellitus; Z82.49 Family history of ischemic heart disease and other diseases of the circulatory system; Z83.2 Family history of diseases of the blood and blood-forming organs and certain disorders involving the immune mechanism; Z83.49 Family history of other endocrine, nutritional and metabolic diseases
CPT/HCPCS: 96376; 96374; 96375; 99285; 36415; 93306; 85379; 80061; 80053; 82150; 83690; 83735; 84484; 85025; 85610; 85730; 71046; 70450; G0378; J1200; J2765; J2405; J1885

== ENCOUNTER 2018-09-15 15:40 | Emergency (ER) | payer MEDICARE, OTHER ==
[2018-09-15] MEDS ORDERED: SODIUM CHLORIDE 0.9% 1,000 ML IV STA (16:42)
[2018-09-15] MEDS ORDERED: ONDANSETRON 4 MG/2 ML VIAL IVP STA ×2 (16:42→19:51)
[2018-09-15] MEDS ORDERED: HYDROmorphone 0.5 MG/0.5 ML SYRINGE IVP STA (16:42)
[2018-09-15 17:27] LABS: Anisocytosis Slight; Basophils # (A) 0.1 k/uL (0-0.2); Basophils % (A) 1 %; Eosinophils # (A) 0.2 k/uL (0-0.7); Eosinophils % (A) 2 %; HCT 33.3 % (34.0-46.0); HGB 10.5 gm/dL (11.4-16.0); Hypochromasia Slight; Lymphocytes # (A) 1.8 k/uL (1.0-4.8); Lymphocytes % (A) 18 %; MCH 25.4 pg (25.0-35.0); MCHC 31.7 g/dL (31.0-37.0); MCV 80.2 fL (80.0-100.0); Mean Platelet Volume 8.5; Monocytes # (A) 0.4 k/uL (0-1.0); Monocytes % (A) 4 %; Neutrophils # (A) 7.4 k/uL (1.3-7.7); Neutrophils % (A) 74 %; Platelet Count 208 k/uL (150-450); RBC 4.15 m/uL (3.80-5.40); RDW 16.3 % (11.5-15.5)
[2018-09-15 17:31] LABS: ALT 18 U/L (9-52); AST 24 U/L (14-36); African American GFR (CKD) >90 (>60 ml/min/1.73 sqM); Albumin 4.1 g/dL (3.5-5.0); Alkaline Phosphatase 108 U/L (38-126); Amylase 58 U/L (30-110); Anion Gap 10 mmol/L; Blood Urea Nitrogen 17 mg/dL (7-17); Carbon Dioxide 23 mmol/L (22-30); Chloride 107 mmol/L (98-107); Glucose 122 mg/dL (74-99); Potassium 4.7 mmol/L (3.5-5.1); Sodium 140 mmol/L (137-145); Total Bilirubin 0.5 mg/dL (0.2-1.3)
[2018-09-15 17:37] LABS: Appearance,Urine Cloudy (Clear); Bacteria,Urine Many /hpf; Bilirubin,Urine Negative (Negative); Blood,Urine Large (Negative); Color,Urine Yellow; Glucose,Urine (UA) 2+ (Negative); Hyaline Casts,Urine 5 /lpf (0-2); Ketones,Urine Negative (Negative); Leukocyte Esterase,Urine Large (Negative); Mucus,Urine Rare /hpf; Nitrite,Urine Positive (Negative); Protein,Urine 3+ (Negative); RBC,Urine >182 /hpf (0-5); Specific Gravity,Urine 1.027 (1.001-1.035); Squamous Epithelial Cell,Urine 4 /hpf (0-4); WBC,Urine 181 /hpf (0-5)
--- NOTE | 2018-09-15 17:40 | XR ---
EXAMINATION TYPE: XR KUB DATE OF EXAM: 09/15/2018 COMPARISON: 05/26/2018 HISTORY: Right lower quadrant pain TECHNIQUE: 2 views upright FINDINGS: There is no sign of intestinal obstruction or pneumoperitoneum. Fecal pattern is fairly nor mal. There is no sign of a mass. There are clips from cholecystectomy. There are surgical clips over the left mid abdomen. Lung bases are clear. IMPRESSION: Nonacute abdomen. No adverse change compared to old exam.
--- NOTE | 2018-09-15 17:49 | ED ---
Abdominal Pain HPI - General Chief Complaint: Abdominal Pain Stated Complaint: Abd Pain Time Seen by Provider: 09/15/18 16:28 Source: patient Mode of arrival: ambulatory Limitations: no limitations - History of Present Illness Initial Comments: Patient is a 48-year-old female presenting to the emergency department with a chief complaint of abdominal pain and urgency. Patient reports urinary symptoms started 2 days ago but today she has developed moderate to severe abdominal pain. Patient reports the pain is constant and there is no specific anatomical position that alleviates the pain. Patient reports nausea and multiple episodes of vomiting today but denies any diarrhea. Patient also reports hematuria but denies hematochezia or melena. Patient denies fevers, chills or night sweats. - Related Data Home Medications Medication Instructions Recorded Confirmed Gabapentin 800 mg PO TID 03/30/15 09/15/18 Albuterol Inhaler [Ventolin Hfa 2 puff INHALATION RT-Q6H PRN 11/28/15 09/15/18 Inhaler] Cyclobenzaprine [Flexeril] 10 mg PO BID 08/05/16 09/15/18 Budesonide/Formoterol Fumarate 2 puff INHALATION RT-BID 01/22/18 09/15/18 [Symbicort 80-4.5 Mcg Inhaler] Ferrous Sulfate [Feosol] 325 mg PO TID 01/22/18 09/15/18 Metoclopramide HCl [Reglan] 5 mg PO DAILY PRN 01/22/18 09/15/18 Metoprolol Succinate [Toprol XL] 50 mg PO DAILY 01/22/18 09/15/18 Nitroglycerin Sl Tabs [Nitrostat] 0.4 mg PO Q5M PRN 01/22/18 09/15/18 Vit B Complx C/Folic Acid/Zinc 1 tab PO DAILY 03/04/18 09/15/18 [Renaplex Tablet] Zinc 50 mg PO DAILY 03/04/18 09/15/18 rOPINIRole HCL [Requip] 2 mg PO TID 03/21/18 09/15/18 Cholecalciferol (Vitamin D3) 10,000 unit PO DAILY 03/23/18 09/15/18 [Vitamin D3] Magnesium Oxide 400 mg PO DAILY 03/23/18 09/15/18 Furosemide [Lasix] 20 mg PO DAILY PRN 05/29/18 09/15/18 Lisinopril [Zestril] 10 mg PO DAILY 09/03/18 09/15/18 Previous Rx's Medication Instructions Recorded Ondansetron Odt [Zofran ODT] 4 mg PO Q8HR PRN #10 tab 04/02/18 Polyethylene Glycol 3350 [Miralax] 17 gm PO DAILY PRN #15 packet 05/28/18 SUMAtriptan SUCCINATE [Imitrex] 50 mg PO BID PRN #30 tab 09/03/18 Cephalexin [Keflex] 500 mg PO Q6HR #40 cap 09/15/18 Ondansetron Odt [Zofran Odt] 4 mg PO Q8HR PRN #10 tab 09/15/18 traMADol HCl [Ultram] 50 mg PO Q6H PRN #10 tab 09/15/18 Allergies Allergy/AdvReac Type Severity Reaction Status Date / Time Sulfa (Sulfonamide Allergy Severe Anaphylaxis Verified 09/15/18 17:21 Antibiotics) adhesive tape Allergy BLISTERS Verified 09/15/18 17:21 amoxicillin [From Augmentin] Allergy Rash/Hives Verified 09/15/18 17:21 clavulanic acid Allergy Rash/Hives Verified 09/15/18 17:21 [From Augmentin] codeine Allergy ABDOMINAL Verified 09/15/18 17:21 PAIN, MIGRAINE HEADACHE Iodinated Contrast- Oral and Allergy Itching Verified 09/15/18 17:21 IV Dye morphine Allergy Itching Verified 09/15/18 17:21 Penicillins Allergy Rash/Hives Verified 09/15/18 17:21 adhesive AdvReac Itching Verified 09/15/18 17:21 artificial sweetners Allergy Nausea, Uncoded 09/03/18 05:17 MIGRAINE HEADACHE Review of Systems ROS Statement: Those systems with pertinent positive or pertinent negative responses have been documented in the HPI. ROS Other: All systems not noted in ROS Statement are negative. Past Medical History Past Medical History: Asthma, Blood Disorder, Chest Pain / Angina, COPD, Diabetes Mellitus, Fibromyalgia, GERD/Reflux, Hearing Disorder / Deafness, Hyperlipidemia, Hypertension, Liver Disease, Mitral Valve Prolapse (MVP), Musculoskeletal Disorder, Osteoarthritis (OA), Pneumonia, Respiratory Disorder, Sleep Apnea/CPAP/BIPAP Additional Past Medical History / Comment(s): MIGRAINES, DEGENERATIVE DISC DISEASE, FATTY LIVER, LEIDEN FACTOR 5, OCCASIONAL SWELLING IN LOWER EXT.NEUROPATHY, RLS, diabetes is in remission since surgery, chronic back pain, PATIENT HAS BEEN OFF MEDS FOR DIABETES SINCE BARIATRIC SURGERY History of Any Multi-Drug Resistant Organisms: None Reported Past Surgical History: Adenoidectomy, Appendectomy, Bariatric Surgery, Bowel Resection, Breast Surgery, Section, Cholecystectomy, Ear Surgery, Heart Catheterization, Hernia Repair, Orthopedic Surgery, Tonsillectomy Additional Past Surgical History / Comment(s): ARTHROSCOPY RT KNEE X3, RT BREAST BX-NEG, (13) MYRINGOTOMYS. laparoscopic danielle-en-y with lysis of adhesions 2013; Surgical wound debridement x3 ; SX TO REMOVED SCAR TISSUE FROM PREVIOUS ABD SX;EGD ; LAP EXAM- APPY SMALL BOWEL OBSTRUCTION LYSIS OFF ADHESIONS, 3 hernia repairs, 3 bowel resection, 07/2016 colon resection, adhesions removed 03/2018 Past Anesthesia/Blood Transfusion Reactions: No Reported Reaction Additional Past Anesthesia/Blood Transfusion Reaction / Comment(s): SEVERE HEADACHE AFTER LAST SCOPE, clausterphobia Past Psychological History: Anxiety, Bipolar, Depression, PTSD Smoking Status: Current some day smoker Past Alcohol Use History: None Reported Past Drug Use History: None Reported - Past Family History Mother Family Medical History: Deep Vein Thrombosis (DVT), Hypertension, Pulmonary Embolus, Thyroid Disorder Additional Family Medical History / Comment(s): FACTOR 5 LEIDEN, MVP Father Family Medical History: Diabetes Mellitus, Hypertension, Myocardial Infarction ([place]) Additional Family Medical History / Comment(s): AGE 59 [place] General Exam Limitations: no limitations General appearance: alert, in no apparent distress Head exam: Present: atraumatic, normocephalic, normal inspection Eye exam: Present: normal appearance, PERRL, EOMI Pupils: Present: normal accommodation ENT exam: Present: normal exam, mucous membranes moist, normal external ear exam Neck exam: Present: normal inspection, full ROM Respiratory exam: Present: normal lung sounds bilaterally Cardiovascular Exam: Present: regular rate, normal rhythm, normal heart sounds GI/Abdominal exam: Present: soft, tenderness (Suprapubic tenderness, right lower quadrant tenderness, right flank pain.), normal bowel sounds, other (Negative Fraire sign). Absent: distended, guarding, rebound Extremities exam: Present: normal inspection, full ROM Back exam: Present: normal inspection, full ROM Neurological exam: Present: alert, oriented X3 Psychiatric exam: Present: normal affect, normal mood Skin exam: Present: warm, intact, normal color Course Vital Signs 09/15/18 09/15/18 09/15/18 15:51 17:55 19:00 Temperature 99.0 F 99.3 F 98.8 F Pulse Rate 86 78 67 Respiratory 18 18 16 Rate Blood Pressure 164/97 158/72 165/79 O2 Sat by Pulse 95 96 98 Oximetry 09/15/18 20:50 Temperature 98.2 F Pulse Rate 72 Respiratory 18 Rate Blood Pressure 160/68 O2 Sat by Pulse 98 Oximetry Medical Decision Making - Medical Decision Making Patient is 48-year-old female presenting to emergency Department with abdominal pain and urgency. CBC and CMP are unremarkable. Urine culture were obtained. UA is indicative of a UTI. Patient has elevated white blood cells, red blood cells, nitrates and leukocyte esterase. Patient was given Zofran and fluids. Based on history, examination and laboratory results I suspect the patient to have pyelonephritis considering the right CVA tenderness. Patient was able to pass by mouth challenge. Patient will be discharged with Zofran. Patient was given 1 mg of Rocephin. Patient will be discharged with a 10 day course of Keflex. Patient was discharged with tramadol for pain due to her ALLERGY for o ther analgesics. Patient advised to follow-up with primary care. Strict return parameters were thoroughly discussed with patient was understanding and agreeable. Case discussed with physician. - Lab Data Result diagrams: 09/15/18 17:17 09/15/18 17:17 Lab Results 09/15/18 09/15/18 09/15/18 Range/Units 17:17 17:17 17:17 WBC 10.0 (3.8-10.6) k/uL RBC 4.15 (3.80-5.40) m/uL Hgb 10.5 L (11.4-16.0) gm/dL Hct 33.3 L (34.0-46.0) % MCV 80.2 (80.0-100.0) fL MCH 25.4 (25.0-35.0) pg MCHC 31.7 (31.0-37.0) g/dL RDW 16.3 H (11.5-15.5) % Plt Count 208 (150-450) k/uL Neutrophils % 74 % Lymphocytes % 18 % Monocytes % 4 % Eosinophils % 2 % Basophils % 1 % Neutrophils # 7.4 (1.3-7.7) k/uL Lymphocytes # 1.8 (1.0-4.8) k/uL Monocytes # 0.4 (0-1.0) k/uL Eosinophils # 0.2 (0-0.7) k/uL Basophils # 0.1 (0-0.2) k/uL Hypochromasia Slight Anisocytosis Slight Sodium 140 (137-145) mmol/L Potassium 4.7 (3.5-5.1) mmol/L Chloride 107 (98-107) mmol/L Carbon Dioxide 23 (22-30) mmol/L Anion Gap 10 mmol/L BUN 17 (7-17) mg/dL Creatinine 0.53 (0.52-1.04) mg/dL Est GFR (CKD-EPI)AfAm >90 (>60 ml/min/1.73 sqM) Est GFR (CKD-EPI)NonAf >90 (>60 ml/min/1.73 sqM) Glucose 122 H (74-99) mg/dL Calcium 9.0 (8.4-10.2) mg/dL Total Bilirubin 0.5 (0.2-1.3) mg/dL AST 24 (14-36) U/L ALT 18 (9-52) U/L Alkaline Phosphatase 108 (38-126) U/L Total Protein 7.0 (6.3-8.2) g/dL Albumin 4.1 (3.5-5.0) g/dL Amylase 58 (30-110) U/L Lipase 45 (23-300) U/L Urine Color Yellow Urine Appearance Cloudy H (Clear) Urine pH 6.0 (5.0-8.0) Ur Specific [place] 1.027 (1.001-1.035) Urine Protein 3+ H (Negative) Urine Glucose (UA) 2+ H (Negative) Urine Ketones Negative (Negative) Urine Blood Large H (Negative) Urine Nitrite Positive H (Negative) Urine Bilirubin Negative (Negative) Urine Urobilinogen 2.0 (<2.0) mg/dL Ur Leukocyte Esterase Large H (Negative) Urine RBC >182 H (0-5) /hpf Urine WBC 181 H (0-5) /hpf Ur Squamous Epith Cells 4 (0-4) /hpf Urine Bacteria Many H (None) /hpf Hyaline Casts 5 H (0-2) /lpf Urine Mucus Rare H (None) /hpf Disposition Clinical Impression: Pyelonephritis Disposition: HOME SELF-CARE Condition: Stable Instructions (If sedation given, give patient instructions): Urinary Tract Infection in Women ([place]) Additional Instructions: Please take prescribed medication as directed. Please follow with primary care. Please return to emergency department if symptoms worsen. Please follow with primary care. Prescriptions: Cephalexin [Keflex] 500 mg PO Q6HR #40 cap traMADol HCl [Ultram] 50 mg PO Q6H PRN #10 tab PRN Reason: Pain Ondansetron Odt [Zofran Odt] 4 mg PO Q8HR PRN #10 tab PRN Reason: Nausea Is patient prescribed a controlled substance at d/c from ED?: Yes If prescribed controlled substance>3 days was MAPS reviewed?: Prescribed <3 Days (Tramadol) Referrals: None,Stated [Primary Care Provider] - 1-2 days Time of Disposition: 19:53
[2018-09-15] MEDS ORDERED: cefTRIAXone IN SWFI 1,000 MG/10 ML SYRINGE IVP STA (18:08)
[2018-09-15] MEDS ORDERED: NALOXONE 0.4 MG/ML 1 ML VIAL IV PRN (18:09)
[2018-09-15] MEDS ORDERED: ONDANSETRON 4 MG/2 ML VIAL IVP PRN (18:09)
[2018-09-15] MEDS ORDERED: HYDROmorphone 0.5 MG/0.5 ML SYRINGE IVP PRN (18:09)
[2018-09-15] MEDS ORDERED: SODIUM CHLORIDE 0.9% 1,000 ML IV SCH (18:15)
[2018-09-15] MEDS ORDERED: CEPHALEXIN 500MG STARTER PACK 4 CAP BTL PO STA (19:51)
[2018-09-15] MEDS ORDERED: ONDANSETRON 4 MG ODT STARTER PACK 2 TAB BTL PO STA (19:52)
[2018-09-15 20:58] VITALS: BP 160/68; PULSE 72; RESP 18; TEMP 98.2
== END 2018-09-15 20:50 | disposition home or self-care (01) ==
LOC: EC 15:40
DX: N12 Tubulo-interstitial nephritis, not specified as acute or chronic (principal); J44.9 Chronic obstructive pulmonary disease, unspecified; M79.7 Fibromyalgia; I10 Essential (primary) hypertension; I34.1 Nonrheumatic mitral (valve) prolapse; G25.81 Restless legs syndrome; F17.200 Nicotine dependence, unspecified, uncomplicated; G47.30 Sleep apnea, unspecified; Z99.89 Dependence on other enabling machines and devices; Z90.49 Acquired absence of other specified parts of digestive tract; Z98.84 Bariatric surgery status; Z98.890 Other specified postprocedural states; Z95.818 Presence of other cardiac implants and grafts; Z79.51 Long term (current) use of inhaled steroids; Z79.899 Other long term (current) drug therapy; Z88.2 Allergy status to sulfonamides; Z91.048 Other nonmedicinal substance allergy status; Z88.0 Allergy status to penicillin; Z88.5 Allergy status to narcotic agent; Z91.041 Radiographic dye allergy status; Z91.018 Allergy to other foods
CPT/HCPCS: 36415; 80053; 82150; 83690; 85025; 81001; 87086; 74018; 99284; 96374; 96375 ×2; 96376; 96361 ×3; J2405; J0696; S0119; J1170

== ENCOUNTER 2018-09-18 09:00 | Emergency (ER) | payer MEDICARE, OTHER ==
--- NOTE | 2018-09-18 09:40 | ED ---
General Adult HPI <Don Lake - Last Filed: 09/18/18 14:54> - General Source: patient, RN notes reviewed Mode of arrival: ambulatory Limitations: no limitations <Obey Jimenez - Last Filed: 09/18/18 15:34> - General Chief complaint: Recheck/Abnormal Lab/Rx Stated complaint: Uti/ poss kidney infection Time Seen by Provider: 09/18/18 09:02 - History of Present Illness Initial comments: 48-year-old female with complicated past medical history including diabetes mellitus, hyperlipidemia, hypertension, mitral valve prolapse, factor V Leiden presents to the emergency department for a chief complaint of pain with urination. Patient states that for the past 5 days she has had pain with urination. States she just does not feel well in general. States she has not been vomiting. Denies fevers. States she received a call from the emergency department come back due to urine culture and her ALLERGIES.Patient has no other complaints at this time including shortness of breath, chest pain, abdominal pain, nausea or vomiting, headache, or visual changes. (Obey Jimenez) - Related Data Home Medications Medication Instructions Recorded Confirmed Gabapentin 800 mg PO TID 03/30/15 09/18/18 Albuterol Inhaler [Ventolin Hfa 2 puff INHALATION RT-Q6H PRN 11/28/15 09/18/18 Inhaler] Cyclobenzaprine [Flexeril] 10 mg PO BID 08/05/16 09/18/18 Budesonide/Formoterol Fumarate 2 puff INHALATION RT-BID 01/22/18 09/18/18 [Symbicort 80-4.5 Mcg Inhaler] Ferrous Sulfate [Feosol] 325 mg PO TID 01/22/18 09/18/18 Metoclopramide HCl [Reglan] 5 mg PO DAILY PRN 01/22/18 09/18/18 Metoprolol Succinate [Toprol XL] 50 mg PO DAILY 01/22/18 09/18/18 Nitroglycerin Sl Tabs [Nitrostat] 0.4 mg PO Q5M PRN 01/22/18 09/18/18 Vit B Complx C/Folic Acid/Zinc 1 tab PO DAILY 03/04/18 09/18/18 [Renaplex Tablet] Zinc 50 mg PO DAILY 03/04/18 09/18/18 rOPINIRole HCL [Requip] 2 mg PO TID 03/21/18 09/18/18 Cholecalciferol (Vitamin D3) 10,000 unit PO DAILY 03/23/18 09/18/18 [Vitamin D3] Magnesium Oxide 400 mg PO DAILY 03/23/18 09/18/18 Furosemide [Lasix] 20 mg PO DAILY PRN 05/29/18 09/18/18 Lisinopril [Zestril] 10 mg PO DAILY 09/03/18 09/18/18 Previous Rx's Medication Instructions Recorded Polyethylene Glycol 3350 [Miralax] 17 gm PO DAILY PRN #15 packet 05/28/18 SUMAtriptan SUCCINATE [Imitrex] 50 mg PO BID PRN #30 tab 09/03/18 Cephalexin [Keflex] 500 mg PO Q6HR #40 cap 09/15/18 Ondansetron Odt [Zofran Odt] 4 mg PO Q8HR PRN #10 tab 09/15/18 traMADol HCl [Ultram] 50 mg PO Q6H PRN #10 tab 09/15/18 Nitrofurantoin Monohyd/M-Cryst 100 mg PO Q12HR 7 Days cap 09/18/18 [Macrobid] Allergies Allergy/AdvReac Type Severity Reaction Status Date / Time Sulfa (Sulfonamide Allergy Severe Anaphylaxis Verified 09/18/18 10:07 Antibiotics) adhesive tape Allergy BLISTERS Verified 09/18/18 10:07 amoxicillin [From Augmentin] Allergy Rash/Hives Verified 09/18/18 10:07 clavulanic acid Allergy Rash/Hives Verified 09/18/18 10:07 [From Augmentin] codeine Allergy ABDOMINAL Verified 09/18/18 10:07 PAIN, MIGRAINE HEADACHE Iodinated Contrast- Oral and Allergy Itching Verified 09/18/18 10:07 IV Dye morphine Allergy Itching Verified 09/18/18 10:07 Penicillins Allergy Rash/Hives Verified 09/18/18 10:07 adhesive AdvReac Itching Verified 09/18/18 10:07 artificial sweetners Allergy Nausea, Uncoded 09/18/18 09:18 MIGRAINE HEADACHE Review of Systems ROS Other: All systems not noted in ROS Statement are negative. <Don Lake - Last Filed: 09/18/18 14:54> ROS Other: All systems not noted in ROS Statement are negative. <Tony,Obey P - Last Filed: 09/18/18 15:34> ROS Statement: Those systems with pertinent positive or pertinent negative responses have been documented in the HPI. Past Medical History Past Medical History: Asthma, Blood Disorder, Chest Pain / Angina, COPD, Diabetes Mellitus, Fibromyalgia, GERD/Reflux, Hearing Disorder / Deafness, Hyperlipidemia, Hypertension, Liver Disease, Mitral Valve Prolapse (MVP), Musculoskeletal Disorder, Osteoarthritis (OA), Pneumonia, Respiratory Disorder, Sleep Apnea/CPAP/BIPAP Additional Past Medical History / Comment(s): MIGRAINES, DEGENERATIVE DISC DISEASE, FATTY LIVER, LEIDEN FACTOR 5, OCCASIONAL SWELLING IN LOWER EXT.NEUROPATHY, RLS, diabetes is in remission since surgery, chronic back pain, PATIENT HAS BEEN OFF MEDS FOR DIABETES SINCE BARIATRIC SURGERY History of Any Multi-Drug Resistant Organisms: ESBL Date of last positivie culture/infection: 09/15/18 MDRO Source:: ESBL URINE Past Surgical History: Adenoidectomy, Appendectomy, Bariatric Surgery, Bowel Resection, Breast Surgery, Section, Cholecystectomy, Ear Surgery, Heart Catheterization, Hernia Repair, Orthopedic Surgery, Tonsillectomy Additional Past Surgical History / Comment(s): ARTHROSCOPY RT KNEE X3, RT BREAST BX-NEG, (13) MYRINGOTOMYS. laparoscopic danielle-en-y with lysis of adhesions 2013; Surgical wound debridement x3 ; SX TO REMOVED SCAR TISSUE FROM PREVIOUS ABD SX;EGD ; LAP EXAM- APPY SMALL BOWEL OBSTRUCTION LYSIS OFF ADHESIONS, 3 hernia repairs, 3 bowel resection, 07/2016 colon resection, adhesions removed 03/2018 Past Anesthesia/Blood Transfusion Reactions: No Reported Reaction Additional Past Anesthesia/Blood Transfusion Reaction / Comment(s): SEVERE HEADACHE AFTER LAST SCOPE, clausterphobia Past Psychological History: Anxiety, Bipolar, Depression, PTSD Smoking Status: Current some day smoker Past Alcohol Use History: None Reported Past Drug Use History: None Reported - Past Family History Mother Family Medical History: Deep Vein Thrombosis (DVT), Hypertension, Pulmonary Embolus, Thyroid Disorder Additional Family Medical History / Comment(s): FACTOR 5 LEIDEN, MVP Father Family Medical History: Diabetes Mellitus, Hypertension, Myocardial Infarction ([place]) Additional Family Medical History / Comment(s): AGE 59 [place] <Obey Jimenez P - Last Filed: 08/01/19 15:34> General Exam Limitations: no limitations General appearance: alert, in no apparent distress Head exam: Present: atraumatic, normocephalic, normal inspection Eye exam: Present: normal appearance, PERRL, EOMI. Absent: scleral icterus, conjunctival injection, periorbital swelling ENT exam: Present: normal exam, mucous membranes moist Neck exam: Present: normal inspection, full ROM. Absent: tenderness, meningismus, lymphadenopathy Respiratory exam: Present: normal lung sounds bilaterally. Absent: respiratory distress, wheezes, rales, rhonchi, stridor Cardiovascular Exam: Present: regular rate, normal rhythm, normal heart sounds. Absent: systolic murmur, diastolic murmur, rubs, gallop, clicks GI/Abdominal exam: Present: soft, tenderness (Minimal generalized abdominal tenderness without guarding or rebound, generally unremarkable.), normal bowel sounds. Absent: distended, guarding, rebound, rigid Back exam: Absent: CVA tenderness (R), CVA tenderness (L) Neurological exam: Present: alert Psychiatric exam: Present: normal affect, normal mood <Obey Jimenez P - Last Filed: 09/18/18 15:34> Course Vital Signs 09/18/18 09/18/18 09/18/18 09:15 10:21 11:25 Temperature 98.1 F 98.1 F Pulse Rate 72 68 88 Respiratory 16 18 18 Rate Blood Pressure 175/79 167/87 155/76 O2 Sat by Pulse 100 99 99 Oximetry 09/18/18 09/18/18 09/18/18 12:18 13:20 14:57 Temperature 98.3 F 98.7 F Pulse Rate 60 64 61 Respiratory 18 18 18 Rate Blood Pressure 147/68 150/75 155/84 O2 Sat by Pulse 99 98 98 Oximetry Medical Decision Making - Lab Data Result diagrams: 09/18/18 09:50 09/18/18 09:50 <Don Lake - Last Filed: 09/18/18 14:54> - Lab Data Result diagrams: 09/18/18 09:50 09/18/18 09:50 <Obey Jimenez - Last Filed: 09/18/18 15:34> - Medical Decision Making Patient was reevaluated by myself, Dr. Lake. Patient resting comfortably in bed. Patient states she does have some abdominal discomfort and does have mild tenderness on the right side of the abdomen. CT report reviewed. Case discussed in detail with Dr. lucinda mercedes who feels patient can be discharged medically unless surgical had concerns. He agrees with Macrobid for her tract infection. Case was also discussed in detail with Dr. Gabriel who is familiar with this patient. This includes CT results. She states she is familiar with this patient and patient does have chronic abdominal pain and can be discharged. (Don Lake) Jeannie is a 48-year-old female with compensated medical history who presents to the emergency department for a recheck. Patient was called back in due to urine culture that showed resistance to the antibiotic she was on. Culture is sensitive to Macrobid but there was concern putting her on Macrobid without evaluating her again due to possible pyelonephritis. However today no pyel onephritis on exam. Patient is afebrile. No CVA tenderness.BC and CMP unremarkable. Plasma lactic acid 1.1. Urinalysis much improved from urinalysis 5 days ago with 9 white blood cells. However patient was complaining of right- sided low back pain and right-sided abdominal pain. Therefore CT was obtained to rule out septic kidney stone. CT showed no hydronephrosis or nephrolithiasis. However there are prominent small bowel loops which could be related to peristalsis, localized ileus. Partial obstruction not entirely excluded. However this is not clinically correlated. Patient has not been vomiting here in the emergency department. Dr. Lake discussed this case with Dr. Young and Dr. Gabriel, patient's surgeon. At this time they both recommended outpatient treatment. Patient will be put on Macrobid and follow- up. She'll return here if she has any worsening symptoms. (Obey Jimenez) - Lab Data Lab Results 09/18/18 09/18/18 09/18/18 Range/Units 09:00 09:00 09:50 WBC 5.8 (3.8-10.6) k/uL RBC 4.05 (3.80-5.40) m/uL Hgb 10.0 L (11.4-16.0) gm/dL Hct 31.0 L (34.0-46.0) % MCV 76.5 L (80.0-100.0) fL MCH 24.7 L (25.0-35.0) pg MCHC 32.2 (31.0-37.0) g/dL RDW 15.8 H (11.5-15.5) % Plt Count 252 (150-450) k/uL Neutrophils % 63 % Lymphocytes % 29 % Monocytes % 3 % Eosinophils % 4 % Basophils % 1 % Neutrophils # 3.6 (1.3-7.7) k/uL Lymphocytes # 1.6 (1.0-4.8) k/uL Monocytes # 0.2 (0-1.0) k/uL Eosinophils # 0.2 (0-0.7) k/uL Basophils # 0.0 (0-0.2) k/uL Microcytosis Slight Sodium (137-145) mmol/L Potassium (3.5-5.1) mmol/L Chloride (98-107) mmol/L Carbon Dioxide (22-30) mmol/L Anion Gap mmol/L BUN (7-17) mg/dL Creatinine (0.52-1.04) mg/dL Est GFR (CKD-EPI)AfAm (>60 ml/min/1.73 sqM) Est GFR (CKD-EPI)NonAf (>60 ml/min/1.73 sqM) Glucose (74-99) mg/dL Plasma Lactic Acid Esteban (0.7-2.0) mmol/L Calcium (8.4-10.2) mg/dL Total Bilirubin (0.2-1.3) mg/dL AST (14-36) U/L ALT (9-52) U/L Alkaline Phosphatase (38-126) U/L Total Protein (6.3-8.2) g/dL Albumin (3.5-5.0) g/dL Urine Color Yellow Urine Appearance Cloudy H (Clear) Urine pH 6.0 (5.0-8.0) Ur Specific Lowman 1.021 (1.001-1.035) Urine Protein Negative (Negative) Urine Glucose (UA) Negative (Negative) Urine Ketones Negative (Negative) Urine Blood Negative (Negative) Urine Nitrite Negative (Negative) Urine Bilirubin Negative (Negative) Urine Urobilinogen <2.0 (<2.0) mg/dL Ur Leukocyte Esterase Large H (Negative) Urine WBC 9 H (0-5) /hpf Ur Squamous Epith Cells 16 H (0-4) /hpf Urine Bacteria Rare H (None) /hpf Urine Mucus Rare H (None) /hpf Urine HCG, Qual Not Detected (Not Detectd) 09/18/18 09/18/18 Range/Units 09:50 10:39 WBC (3.8-10.6) k/uL RBC (3.80-5.40) m/uL Hgb (11.4-16.0) gm/dL Hct (34.0-46.0) % MCV (80.0-100.0) fL MCH (25.0-35.0) pg MCHC (31.0-37.0) g/dL RDW (11.5-15.5) % Plt Count (150-450) k/uL Neutrophils % % Lymphocytes % % Monocytes % % Eosinophils % % Basophils % % Neutrophils # (1.3-7.7) k/uL Lymphocytes # (1.0-4.8) k/uL Monocytes # (0-1.0) k/uL Eosinophils # (0-0.7) k/uL Basophils # (0-0.2) k/uL Microcytosis Sodium 138 (137-145) mmol/L Potassium 5.1 (3.5-5.1) mmol/L Chloride 106 (98-107) mmol/L Carbon Dioxide 23 (22-30) mmol/L Anion Gap 9 mmol/L BUN 15 (7-17) mg/dL Creatinine 0.52 (0.52-1.04) mg/dL Est GFR (CKD-EPI)AfAm >90 (>60 ml/min/1.73 sqM) Est GFR (CKD-EPI)NonAf >90 (>60 ml/min/1.73 sqM) Glucose 129 H (74-99) mg/dL Plasma Lactic Acid Esteban 1.1 (0.7-2.0) mmol/L Calcium 8.8 (8.4-10.2) mg/dL Total Bilirubin 0.7 (0.2-1.3) mg/dL AST 28 (14-36) U/L ALT 20 (9-52) U/L Alkaline Phosphatase 81 (38-126) U/L Total Protein 6.8 (6.3-8.2) g/dL Albumin 3.8 (3.5-5.0) g/dL Urine Color Urine Appearance (Clear) Urine pH (5.0-8.0) Ur Specific Lowman (1.001-1.035) Urine Protein (Negative) Urine Glucose (UA) (Negative) Urine Ketones (Negative) Urine Blood (Negative) Urine Nitrite (Negative) Urine Bilirubin (Negative) Urine Urobilinogen (<2.0) mg/dL Ur Leukocyte Esterase (Negative) Urine WBC (0-5) /hpf Ur Squamous Epith Cells (0-4) /hpf Urine Bacteria (None) /hpf Urine Mucus (None) /hpf Urine HCG, Qual (Not Detectd) Disposition <Don Lake - Last Filed: 09/18/18 14:54> Is patient prescribed a controlled substance at d/c from ED?: No Time of Disposition: 15:28 <Obey Jimenez - Last Filed: 09/18/18 15:34> Clinical Impression: Urinary tract infection Disposition: HOME SELF-CARE Condition: Good Instructions (If sedation given, give patient instructions): Urinary Tract Infection in Women (ED) Additional Instructions: Please stop Keflex and take Macrobid as directed. Follow-up with your surgeon as well as primary care in 1-2 days. Return here to the emergency department if you have any worsening symptoms. Prescriptions: Nitrofurantoin Monohyd/M-Cryst [Macrobid] 100 mg PO Q12HR 7 Days cap Referrals: Dieter Dubose MD [REFERRING] - 1-2 days Latricia Dumont MD [STAFF PHYSICIAN] - 1-2 days
[2018-09-18 09:59] LABS: Basophils % (A) 1 %; Eosinophils # (A) 0.2 k/uL (0-0.7); Eosinophils % (A) 4 %; Lymphocytes # (A) 1.6 k/uL (1.0-4.8); Lymphocytes % (A) 29 %; MCH 24.7 pg (25.0-35.0); MCHC 32.2 g/dL (31.0-37.0); MCV 76.5 fL (80.0-100.0); Mean Platelet Volume 7.3; Microcytosis Slight; Monocytes # (A) 0.2 k/uL (0-1.0); Monocytes % (A) 3 %; Neutrophils # (A) 3.6 k/uL (1.3-7.7); Neutrophils % (A) 63 %; Platelet Count 252 k/uL (150-450); RBC 4.05 m/uL (3.80-5.40); RDW 15.8 % (11.5-15.5); WBC 5.8 k/uL (3.8-10.6)
[2018-09-18 10:04] LABS: Appearance,Urine Cloudy (Clear); Bacteria,Urine Rare /hpf; Bilirubin,Urine Negative (Negative); Blood,Urine Negative (Negative); Color,Urine Yellow; Glucose,Urine (UA) Negative (Negative); Ketones,Urine Negative (Negative); Leukocyte Esterase,Urine Large (Negative); Mucus,Urine Rare /hpf; Nitrite,Urine Negative (Negative); Protein,Urine Negative (Negative); Specific Gravity,Urine 1.021 (1.001-1.035); Squamous Epithelial Cell,Urine 16 /hpf (0-4); Urobilinogen,Urine <2.0 mg/dL (<2.0); WBC,Urine 9 /hpf (0-5)
[2018-09-18 10:15] LABS: ALT 20 U/L (9-52); AST 28 U/L (14-36); African American GFR (CKD) >90 (>60 ml/min/1.73 sqM); Albumin 3.8 g/dL (3.5-5.0); Alkaline Phosphatase 81 U/L (38-126); Anion Gap 9 mmol/L; Blood Urea Nitrogen 15 mg/dL (7-17); Calcium 8.8 mg/dL (8.4-10.2); Carbon Dioxide 23 mmol/L (22-30); Chloride 106 mmol/L (98-107); Glucose 129 mg/dL (74-99); Non-African American GFR(CKD) >90 (>60 ml/min/1.73 sqM); Sodium 138 mmol/L (137-145); Total Bilirubin 0.7 mg/dL (0.2-1.3); Total Protein 6.8 g/dL (6.3-8.2)
[2018-09-18] MEDS: SODIUM CHLORIDE 0.9% 500 ML 500 ML IV SCH ×2 (10:20→10:46)
[2018-09-18] MEDS ORDERED: cefTRIAXone IN SWFI 1,000 MG/10 ML SYRINGE IVP STA (10:21)
[2018-09-18 10:22] VITALS: RESP 18
[2018-09-18 10:42] LABS: Potassium 5.1 mmol/L (3.5-5.1)
[2018-09-18] MEDS ORDERED: HYDROmorphone 0.5 MG/0.5 ML SYRINGE IVP STA (10:56)
--- NOTE | 2018-09-18 10:56 | CT ---
EXAMINATION TYPE: CT abdomen pelvis wo con DATE OF EXAM: 09/18/2018 COMPARISON: 04/23/2018 HISTORY: Lower pelvic pain, right sided back pain CT DLP: 989.9 mGycm Automated exposure control for dose reduction was used. TECHNIQUE: Helical acquisition of images was performed from the lung bases through the pelvis. FINDINGS: LUNG BASES: Pleural thickening posteriorly noted. The heart is enlarged. 1 mm subpleural nodule too s mall to characterize. LIVER/GB: Postcholecystectomy changes are noted. Liver is prominent in size measuring 20 cm. PANCREAS: No significant abnormality is seen. SPLEEN: No significant abnormality is seen. ADRENALS: No significant abnormality is seen. KIDNEYS: No significant abnormality is seen. ADENOPATHY: None visualized. OSSEOUS STRUCTURES: Hypertrophic and degenerative change of the spine. BOWEL: There is postsurgical changes suggestive of previous gastric surgery. Bowel gas pattern is no nspecific, there is prominent small bowel loops at the level of the jejunum a site of surgical anasto mosis. Ileus or partial obstructive pattern in the differential diagnosis. Appendix not visualized. OTHER: Aorta of normal caliber. There is faint attenuation throughout the subcutaneous tissues which may represent a mild degree of anasarca. Correlate clinically. IMPRESSION: 1. No hydronephrosis or nephrolithiasis. 2. Extensive previous bowel surgery. There are prominent small bowel loops at the level the jejunum n ear areas of anastomotic suturing. This could be related to peristalsis. Localized ileus or enteritis in the differential diagnosis. Partial obstruction not entirely excluded correlate clinically. 3. Hepatomegaly
[2018-09-18] MEDS ORDERED: ONDANSETRON 4 MG/2 ML VIAL IVP STA (15:07)
[2018-09-18 15:45] VITALS: BP 155/79; PULSE 66; TEMP 98.5
== END 2018-09-18 15:45 | disposition home or self-care (01) ==
LOC: EC 09:00
DX: N39.0 Urinary tract infection, site not specified (principal); M54.5 Low back pain; J44.9 Chronic obstructive pulmonary disease, unspecified; I10 Essential (primary) hypertension; M79.7 Fibromyalgia; G25.81 Restless legs syndrome; G62.9 Polyneuropathy, unspecified; H91.90 Unspecified hearing loss, unspecified ear; G47.30 Sleep apnea, unspecified; F17.200 Nicotine dependence, unspecified, uncomplicated; Z88.0 Allergy status to penicillin; Z88.2 Allergy status to sulfonamides; Z88.5 Allergy status to narcotic agent; Z91.02 Food additives allergy status; Z91.041 Radiographic dye allergy status; Z91.048 Other nonmedicinal substance allergy status; Z79.51 Long term (current) use of inhaled steroids; Z79.899 Other long term (current) drug therapy; Z86.69 Personal history of other diseases of the nervous system and sense organs; Z86.2 Personal history of diseases of the blood and blood-forming organs and certain disorders involving the immune mechanism; Z90.49 Acquired absence of other specified parts of digestive tract; Z98.84 Bariatric surgery status; Z96.22 Myringotomy tube(s) status; Z99.89 Dependence on other enabling machines and devices; Z86.79 Personal history of other diseases of the circulatory system; Z95.818 Presence of other cardiac implants and grafts
CPT/HCPCS: 36415; 80053; 83605; 85025; 81001; 81025; 87040; 74176; 99284; 96374; 96375 ×2; 96361; J2405; J0696; J1170

== ENCOUNTER 2021-06-16 08:27 | Inpatient (IN) | payer BC, MEDICARE, OTHER ==
[2021-06-16] MEDS ORDERED: SODIUM CHLORIDE 0.9% 500 ML 500 ML IV STA (08:45)
[2021-06-16] MEDS ORDERED: ONDANSETRON 4 MG/2 ML VIAL IVP STA ×2 (08:45→14:35)
[2021-06-16] MEDS ORDERED: fentaNYL (PF) 50 MCG/ML 2 ML AMP IVP STA ×3 (08:47→14:35)
--- NOTE | 2021-06-16 08:54 | ED ---
General Adult HPI - General Source: patient, RN notes reviewed, old records reviewed Mode of arrival: ambulatory Limitations: no limitations - History of Present Illness -: week(s) (2) Location: abdomen Severity scale (1-10): 9 Quality: constant Consistency: constant Improves with: none Associated Symptoms: loss of appetite, nausea/vomiting Treatments Prior to Arrival: other (seen at [facility] 2 days ago, CT and labs done) <Yordan Pérez - Last Filed: 06/16/21 15:58> <Shaina Soliz - Last Filed: 06/16/21 23:44> - General Chief complaint: Abdominal Pain Stated complaint: abd pain Time Seen by Provider: 06/16/21 08:40 - History of Present Illness Initial comments: 50-year-old female, alert and oriented 4, presents with complaints of generalized abdominal pain for the past 2 weeks. She has had intermittent diarrhea and constipation and over the past 2 weeks with nausea and decreased appetite, a foul taste in her mouth with decreased appetite. She states her stool is also foul smelling. She went to [facility] 2 days ago and had a CT and labs done, showing no blockage but states that in the past she has had blockages that did not show on CT scan and Dr. Dumont had to do emergency surgery. She is concerned for another bowel obstruction. She states that she is vomiting clear liquid, she denies any fevers or dysuria. No hematochezia or hematemesis. Denies black tarry stools. She does have an appointment with Dr. Dumont on Saturday and did call the office for increased pain and was told to come to the emergency room. Patient states that she has history of bariatric surgery, bowel resection 4, appendectomy, cholecystectomy and hernia surgery. (Yordan Pérez) - Related Data Home Medications Medication Instructions Recorded Confirmed Cyclobenzaprine [Flexeril] 10 mg PO BID 08/05/16 06/16/21 Ferrous Sulfate [Feosol] 325 mg PO DAILY 01/22/18 06/16/21 Metoclopramide HCl [Reglan] 5 mg PO HS 01/22/18 06/16/21 Metoprolol Succinate [Toprol XL] 50 mg PO DAILY 01/22/18 06/16/21 Nitroglycerin Sl Tabs [Nitrostat] 0.4 mg PO Q5M PRN 01/22/18 06/16/21 Zinc 50 mg PO DAILY 03/04/18 06/16/21 rOPINIRole HCL [Requip] 2 mg PO BID 03/21/18 06/16/21 Furosemide [Lasix] 20 mg PO DAILY 05/29/18 06/16/21 Lisinopril [Zestril] 10 mg PO DAILY 09/03/18 06/16/21 Amitriptyline HCl [Elavil] 75 mg PO HS 06/16/21 06/16/21 Benzonatate [Tessalon Perles] 100 mg PO TID PRN 06/16/21 06/16/21 Calcium Carb-Vit D 250Mg-125Un 1 tab PO DAILY 06/16/21 06/16/21 [Oscal 250+D 3.125 Mcg (125 Iu)] Famotidine 20 mg PO BID 06/16/21 06/16/21 Magnesium 250 mg PO HS 06/16/21 06/16/21 Pregabalin [Lyrica] 200 mg PO BID 06/16/21 06/16/21 Rizatriptan Benzoate [Rizatriptan] 10 mg PO BID PRN 06/16/21 06/16/21 Rosuvastatin Calcium [Crestor] 40 mg PO HS 06/16/21 06/16/21 SUMAtriptan SUCCINATE [Imitrex] 100 mg PO BID PRN 06/16/21 06/16/21 Topiramate [Topamax] 100 mg PO DAILY 06/16/21 06/16/21 Allergies Allergy/AdvReac Type Severity Reaction Status Date / Time Sulfa (Sulfonamide Allergy Severe Anaphylaxis Verified 06/16/21 11:11 Antibiotics) adhesive tape Allergy BLISTERS Verified 06/16/21 11:11 amoxicillin [From Augmentin] Allergy Rash/Hives Verified 06/16/21 11:11 clavulanic acid Allergy Rash/Hives Verified 06/16/21 11:11 [From Augmentin] codeine Allergy ABDOMINAL Verified 06/16/21 11:11 PAIN, MIGRAINE HEADACHE Iodinated Contrast Media Allergy Itching Verified 06/16/21 11:11 [Iodinated Contrast- Oral and IV Dye] morphine Allergy Itching Verified 06/16/21 11:11 Penicillins Allergy Rash/Hives/Itching/Gi Verified 06/16/21 11:11 Upset adhesive AdvReac Itching Verified 06/16/21 11:11 artificial sweetners Allergy Nausea, Uncoded 06/16/21 11:11 MIGRAINE HEADACHE Review of Systems ROS Other: All systems not noted in ROS Statement are negative. <Yordan Pérez - Last Filed: 06/16/21 15:58> ROS Other: All systems not noted in ROS Statement are negative. <Shaina Soliz - Last Filed: 06/16/21 23:44> ROS Statement: Those systems with pertinent positive or pertinent negative responses have been documented in the HPI. Past Medical History Past Medical History: Asthma, Blood Disorder, Chest Pain / Angina, COPD, Diabetes Mellitus, Fibromyalgia, GERD/Reflux, Hearing Disorder / Deafness, Hyperlipidemia, Hypertension, Liver Disease, Mitral Valve Prolapse (MVP), Musculoskeletal Disorder, Osteoarthritis (OA), Pneumonia, Respiratory Disorder, Sleep Apnea/CPAP/BIPAP Additional Past Medical History / Comment(s): MIGRAINES, DEGENERATIVE DISC DISEASE, FATTY LIVER, LEIDEN FACTOR 5, OCCASIONAL SWELLING IN LOWER EXT.NEUROPATHY, RLS, diabetes is in remission since surgery, chronic back pain, PATIENT HAS BEEN OFF MEDS FOR DIABETES SINCE BARIATRIC SURGERY History of Any Multi-Drug Resistant Organisms: ESBL Date of last positivie culture/infection: 09/15/18 MDRO Source:: ESBL URINE Past Surgical History: Adenoidectomy, Appendectomy, Bariatric Surgery, Bowel Resection, Breast Surgery, Section, Cholecystectomy, Ear Surgery, Heart Catheterization, Hernia Repair, Orthopedic Surgery, Tonsillectomy Additional Past Surgical History / Comment(s): ARTHROSCOPY RT KNEE X3, RT BREAST BX-NEG, (13) MYRINGOTOMYS. laparoscopic danielle-en-y with lysis of adhesions 2013; Surgical wound debridement x3 ; SX TO REMOVED SCAR TISSUE FROM PREVIOUS ABD SX;EGD ; LAP EXAM- APPY SMALL BOWEL OBSTRUCTION LYSIS OFF ADHESIONS, 3 hernia repairs, 3 bowel resection, 07/2016 colon resection, adhesions removed 03/2018 Past Anesthesia/Blood Transfusion Reactions: No Reported Reaction Additional Past Anesthesia/Blood Transfusion Reaction / Comment(s): SEVERE HEADACHE AFTER LAST SCOPE, clausterphobia Past Psychological History: Anxiety, Bipolar, Depression, PTSD Smoking Status: Never smoker Past Alcohol Use History: Occasional Past Drug Use History: Marijuana - Past Family History Mother Family Medical History: Deep Vein Thrombosis (DVT), Hypertension, Pulmonary Embolus, Thyroid Disorder Additional Family Medical History / Comment(s): FACTOR 5 LEIDEN, MVP Father Family Medical History: Diabetes Mellitus, Hypertension, Myocardial Infarction (PR) Additional Family Medical History / Comment(s): AGE 59 PR <Yordan Pérez - Last Filed: 06/16/21 15:58> General Exam Limitations: no limitations General appearance: alert, in no apparent distress ENT exam: Present: normal oropharynx, mucous membranes moist Respiratory exam: Present: normal lung sounds bilaterally. Absent: respiratory distress, wheezes, rales, rhonchi, stridor, accessory muscle use, decreased breath sounds Cardiovascular Exam: Present: regular rate GI/Abdominal exam: Present: soft, tenderness (left lower), hyperactive bowel sounds. Absent: distended Rectal exam: Present: normal rectal tone. Absent: black stool, bloody stool, fecal impaction, mass, tenderness Extremities exam: Present: normal capillary refill Back exam: Present: normal inspection. Absent: tenderness, CVA tenderness (R), CVA tenderness (L), rash noted Neurological exam: Present: alert, oriented X3 Psychiatric exam: Present: normal affect, normal mood Skin exam: Present: warm, dry, normal color. Absent: rash, cyanosis, diaphoretic <Yordan Pérez - Last Filed: 06/16/21 15:58> Course - Reevaluation(s) Time: 10:30 Time: 11:32 <Yordan Pérez - Last Filed: 06/16/21 15:58> Vital Signs 06/16/21 06/16/21 06/16/21 08:29 09:40 10:30 Temperature 98 F Pulse Rate 75 84 61 Respiratory 20 18 18 Rate Blood Pressure 193/94 172/99 165/84 Blood Pressure [Left Arm] O2 Sat by Pulse 98 97 Oximetry 06/16/21 06/16/21 06/16/21 11:27 15:31 18:15 Temperature 98.5 F Pulse Rate 72 63 83 Respiratory 18 18 18 Rate Blood Pressure 189/94 166/82 168/78 Blood Pressure [Left Arm] O2 Sat by Pulse 97 98 99 Oximetry 06/16/21 19:09 Temperature 98.3 F Pulse Rate Respiratory 18 Rate Blood Pressure Blood Pressure 189/97 [Left Arm] O2 Sat by Pulse 98 Oximetry - Reevaluation(s) Reevaluation #1: 06/16/21 10:30 Laboratory at bedside to obtain blood work. (Yordan Pérez) Reevaluation #2: 06/16/21 11:32 Patient states she continues to have pain, additional pain meds were ordered. I did speak with Dr. Hart who recommended a small bowel follow-through (Yordan Pérez) EKG Findings - EKG Results: EKG: sinus rhythm (Ventricular rate of 65, [place] interval 0.167, QRS 0.93, QTC 0.405) <Yordan Pérez - Last Filed: 06/16/21 15:58> Medical Decision Making - Lab Data Result diagrams: 06/16/21 10:30 06/16/21 10:30 <Yordan Pérez - Last Filed: 06/16/21 15:58> - Lab Data Result diagrams: 06/16/21 10:30 06/16/21 10:30 <Shaina Soliz - Last Filed: 06/16/21 23:44> - Medical Decision Making X-ray shows nonobstructive bowel gas pattern. There is scattered gas seen within nondistended small bowel loops and fecal material seen in the nondistended colon. Medical records obtained from [facility] [place] [facility] from her visit on 06/15/2021, CT of the abdomen and pelvis shows no acute abnormality no evidence of bowel obstruction. No evidence of leukocytosis. There is a drop in her hemoglobin from her recent visit at [facility] 12.2 and today is 10.7, she is guaiac positive. She was treated for urinary tract infection. Awaiting the small bowel follow-through x-ray, case was signed out to Dr. Soliz. (Yordan Pérez) Patient was signed out to me pending her small bowel follow-through. Study was recommended by Dr. Gabriel. Imaging does return and is positive for possible obstruction. I did speak with Dr. Gabriel who agreed to admit the patient. She states that the patient is ice chips only. This is discussed with the patient does agree to admission. She was transferred up for in stable condition (Shaina Soliz) - Lab Data Lab Results 06/16/21 06/16/21 06/16/21 Range/Units 09:15 10:30 10:30 WBC 7.4 (3.8-10.6) k/uL RBC 3.68 L (3.80-5.40) m/uL Hgb 10.7 L (11.4-16.0) gm/dL Hct 33.9 L (34.0-46.0) % MCV 92.2 (80.0-100.0) fL MCH 29.2 (25.0-35.0) pg MCHC 31.7 (31.0-37.0) g/dL RDW 14.3 (11.5-15.5) % Plt Count 218 (150-450) k/uL MPV 7.6 Neutrophils % 76 % Lymphocytes % 17 % Monocytes % 4 % Eosinophils % 1 % Basophils % 1 % Neutrophils # 5.6 (1.3-7.7) k/uL Lymphocytes # 1.3 (1.0-4.8) k/uL Monocytes # 0.3 (0-1.0) k/uL Eosinophils # 0.1 (0-0.7) k/uL Basophils # 0.0 (0-0.2) k/uL PT (9.0-12.0) sec INR (<1.2) APTT (22.0-30.0) sec Sodium 136 L (137-145) mmol/L Potassium 4.1 (3.5-5.1) mmol/L Chloride 103 (98-107) mmol/L Carbon Dioxide 29 (22-30) mmol/L Anion Gap 4 mmol/L BUN 14 (7-17) mg/dL Creatinine 0.64 (0.52-1.04) mg/dL Est GFR (CKD-EPI)AfAm >90 (>60 ml/min/1.73 sqM) Est GFR (CKD-EPI)NonAf >90 (>60 ml/min/1.73 sqM) Glucose 136 H (74-99) mg/dL Plasma Lactic Acid Esteban (0.7-2.0) mmol/L Calcium 8.0 L (8.4-10.2) mg/dL Total Bilirubin 0.6 (0.2-1.3) mg/dL AST 28 (14-36) U/L ALT 18 (4-34) U/L Alkaline Phosphatase 95 (38-126) U/L Troponin I (0.000-0.034) ng/mL Total Protein 6.2 L (6.3-8.2) g/dL Albumin 3.5 (3.5-5.0) g/dL Amylase 55 (30-110) U/L Lipase 42 (23-300) U/L Urine Color Yellow Urine Appearance Cloudy H (Clear) Urine pH 5.5 (5.0-8.0) Ur Specific [place] 1.017 (1.001-1.035) Urine Protein Negative (Negative) Urine Glucose (UA) Negative (Negative) Urine Ketones Negative (Negative) Urine Blood Negative (Negative) Urine Nitrite Positive H (Negative) Urine Bilirubin Negative (Negative) Urine Urobilinogen <2.0 (<2.0) mg/dL Ur Leukocyte Esterase Large H (Negative) Urine RBC 2 (0-5) /hpf Urine WBC 67 H (0-5) /hpf Ur Squamous Epith Cells 5 H (0-4) /hpf Urine Bacteria Occasional H (None) /hpf Urine Mucus Rare H (None) /hpf Stool Occult Blood (Negative) 06/16/21 06/16/21 06/16/21 Range/Units 10:30 10:30 10:30 WBC (3.8-10.6) k/uL RBC (3.80-5.40) m/uL Hgb (11.4-16.0) gm/dL Hct (34.0-46.0) % MCV (80.0-100.0) fL MCH (25.0-35.0) pg MCHC (31.0-37.0) g/dL RDW (11.5-15.5) % Plt Count (150-450) k/uL MPV Neutrophils % % Lymphocytes % % Monocytes % % Eosinophils % % Basophils % % Neutrophils # (1.3-7.7) k/uL Lymphocytes # (1.0-4.8) k/uL Monocytes # (0-1.0) k/uL Eosinophils # (0-0.7) k/uL Basophils # (0-0.2) k/uL PT 10.0 (9.0-12.0) sec INR 0.9 (<1.2) APTT 22.8 (22.0-30.0) sec Sodium (137-145) mmol/L Potassium (3.5-5.1) mmol/L Chloride (98-107) mmol/L Carbon Dioxide (22-30) mmol/L Anion Gap mmol/L BUN (7-17) mg/dL Creatinine (0.52-1.04) mg/dL Est GFR (CKD-EPI)AfAm (>60 ml/min/1.73 sqM) Est GFR (CKD-EPI)NonAf (>60 ml/min/1.73 sqM) Glucose (74-99) mg/dL Plasma Lactic Acid Esteban 0.9 (0.7-2.0) mmol/L Calcium (8.4-10.2) mg/dL Total Bilirubin (0.2-1.3) mg/dL AST (14-36) U/L ALT (4-34) U/L Alkaline Phosphatase (38-126) U/L Troponin I <0.012 (0.000-0.034) ng/mL Total Protein (6.3-8.2) g/dL Albumin (3.5-5.0) g/dL Amylase (30-110) U/L Lipase (23-300) U/L Urine Color Urine Appearance (Clear) Urine pH (5.0-8.0) Ur Specific [place] (1.001-1.035) Urine Protein (Negative) Urine Glucose (UA) (Negative) Urine Ketones (Negative) Urine Blood (Negative) Urine Nitrite (Negative) Urine Bilirubin (Negative) Urine Urobilinogen (<2.0) mg/dL Ur Leukocyte Esterase (Negative) Urine RBC (0-5) /hpf Urine WBC (0-5) /hpf Ur Squamous Epith Cells (0-4) /hpf Urine Bacteria (None) /hpf Urine Mucus (None) /hpf Stool Occult Blood (Negative) 06/16/21 Range/Units 11:32 WBC (3.8-10.6) k/uL RBC (3.80-5.40) m/uL Hgb (11.4-16.0) gm/dL Hct (34.0-46.0) % MCV (80.0-100.0) fL MCH (25.0-35.0) pg MCHC (31.0-37.0) g/dL RDW (11.5-15.5) % Plt Count (150-450) k/uL MPV Neutrophils % % Lymphocytes % % Monocytes % % Eosinophils % % Basophils % % Neutrophils # (1.3-7.7) k/uL Lymphocytes # (1.0-4.8) k/uL Monocytes # (0-1.0) k/uL Eosinophils # (0-0.7) k/uL Basophils # (0-0.2) k/uL PT (9.0-12.0) sec INR (<1.2) APTT (22.0-30.0) sec Sodium (137-145) mmol/L Potassium (3.5-5.1) mmol/L Chloride (98-107) mmol/L Carbon Dioxide (22-30) mmol/L Anion Gap mmol/L BUN (7-17) mg/dL Creatinine (0.52-1.04) mg/dL Est GFR (CKD-EPI)AfAm (>60 ml/min/1.73 sqM) Est GFR (CKD-EPI)NonAf (>60 ml/min/1.73 sqM) Glucose (74-99) mg/dL Plasma Lactic Acid Esteban (0.7-2.0) mmol/L Calcium (8.4-10.2) mg/dL Total Bilirubin (0.2-1.3) mg/dL AST (14-36) U/L ALT (4-34) U/L Alkaline Phosphatase (38-126) U/L Troponin I (0.000-0.034) ng/mL Total Protein (6.3-8.2) g/dL Albumin (3.5-5.0) g/dL Amylase (30-110) U/L Lipase (23-300) U/L Urine Color Urine Appearance (Clear) Urine pH (5.0-8.0) Ur Specific [place] (1.001-1.035) Urine Protein (Negative) Urine Glucose (UA) (Negative) Urine Ketones (Negative) Urine Blood (Negative) Urine Nitrite (Negative) Urine Bilirubin (Negative) Urine Urobilinogen (<2.0) mg/dL Ur Leukocyte Esterase (Negative) Urine RBC (0-5) /hpf Urine WBC (0-5) /hpf Ur Squamous Epith Cells (0-4) /hpf Urine Bacteria (None) /hpf Urine Mucus (None) /hpf Stool Occult Blood Positive H (Negative) Disposition <Yordan Pérez - Last Filed: 06/16/21 15:58> Is patient prescribed a controlled substance at d/c from ED?: No Decision to Admit Reason: Admit from EC Decision Date: 06/16/21 Decision Time: 18:19 <Shaina Soliz - Last Filed: 06/16/21 23:44> Clinical Impression: UTI (urinary tract infection), Small bowel obstruction Disposition: ADMITTED IP TO THIS [facility] Condition: Stable
--- NOTE | 2021-06-16 10:01 | XR ---
EXAMINATION TYPE: XR KUB DATE OF EXAM: 06/16/2021 9:57 AM CLINICAL HISTORY: Abdominal pain for 2 weeks. TECHNIQUE: Two Upright KUB images of the abdomen are obtained. COMPARISON: Prior abdominal x-ray September 15, 2018. Prior CT September 18, 2018. FINDINGS: Scattered gas is seen in non-distended small bowel loops. Gas and fecal material is seen in non-distended colon. Cholecystectomy clips are present. Surgical clips in the left mid abdomen are r edemonstrated. Surgical sutures left mid abdomen on CT less well seen on plain films. Left-sided pelv ic phleboliths. No free air. Osseous structures are intact. IMPRESSION: Overall nonobstructive bowel gas pattern.
[2021-06-16 10:46] LABS: Basophils % (A) 1 %; Eosinophils # (A) 0.1 k/uL (0-0.7); Eosinophils % (A) 1 %; HCT 33.9 % (34.0-46.0); HGB 10.7 gm/dL (11.4-16.0); Lymphocytes # (A) 1.3 k/uL (1.0-4.8); Lymphocytes % (A) 17 %; MCH 29.2 pg (25.0-35.0); MCHC 31.7 g/dL (31.0-37.0); MCV 92.2 fL (80.0-100.0); Mean Platelet Volume 7.6; Monocytes # (A) 0.3 k/uL (0-1.0); Monocytes % (A) 4 %; Neutrophils # (A) 5.6 k/uL (1.3-7.7); Neutrophils % (A) 76 %; Platelet Count 218 k/uL (150-450); RBC 3.68 m/uL (3.80-5.40); RDW 14.3 % (11.5-15.5); WBC 7.4 k/uL (3.8-10.6)
[2021-06-16 11:04] LABS: INR 0.9 (<1.2); Partial Thromboplastin Time 22.8 sec (22.0-30.0)
[2021-06-16 11:17] LABS: ALT 18 U/L (4-34); AST 28 U/L (14-36); African American GFR (CKD) >90 (>60 ml/min/1.73 sqM); Albumin 3.5 g/dL (3.5-5.0); Alkaline Phosphatase 95 U/L (38-126); Amylase 55 U/L (30-110); Anion Gap 4 mmol/L; Blood Urea Nitrogen 14 mg/dL (7-17); Carbon Dioxide 29 mmol/L (22-30); Chloride 103 mmol/L (98-107); Glucose 136 mg/dL (74-99); Lipase 42 U/L (23-300); Non-African American GFR(CKD) >90 (>60 ml/min/1.73 sqM); Potassium 4.1 mmol/L (3.5-5.1); Sodium 136 mmol/L (137-145); Total Bilirubin 0.6 mg/dL (0.2-1.3); Total Protein 6.2 g/dL (6.3-8.2)
[2021-06-16 11:40] LABS: Appearance,Urine Cloudy (Clear); Bacteria,Urine Occasional /hpf; Bilirubin,Urine Negative (Negative); Blood,Urine Negative (Negative); Color,Urine Yellow; Glucose,Urine (UA) Negative (Negative); Ketones,Urine Negative (Negative); Leukocyte Esterase,Urine Large (Negative); Mucus,Urine Rare /hpf; Nitrite,Urine Positive (Negative); PH, Urine 5.5 (5.0-8.0); Protein,Urine Negative (Negative); RBC,Urine 2 /hpf (0-5); Specific Gravity,Urine 1.017 (1.001-1.035); Squamous Epithelial Cell,Urine 5 /hpf (0-4); Urobilinogen,Urine <2.0 mg/dL (<2.0); WBC,Urine 67 /hpf (0-5)
--- NOTE | 2021-06-16 14:48 | P.GSCN ---
History of Present Illness Consult date: 06/16/21 History of present illness: CHIEF COMPLAINT: Intractable abdominal pain HISTORY OF PRESENT ILLNESS: Jeannie Klein is a 50-year-old female who is status post Danielle-en-Y gastric bypass in October 2012. She is 9 years out. She reports doing fair 3 years ago in 2019 and had gotten . She reports having no moderate abdominal pain for the past 3 years. She then developed moderate to severe persistent left upper and left lower quadrant abdominal pain for over 2 weeks. Her abdominal pain is crampy and intermittent. She reports foul smelling stools including intermittent obstipation. She has pre-existing history of elongated sigmoid colon and intermittent sigmoid volvulus. She went to another ER yesterday where work-up was negative per her recollection. Per discussion with ER provider, CT scan was negative. Patient reports persistent symptoms. She presents to the ER for intractable abdominal pain. Her highest weight for a 5-foot, 0-inch frame was 310 pounds. [place] body weight is 127 pounds. Body mass index was 60.7 now 46.9. Today she comes weighing 239 pounds from 232 pounds, 3 months ago. She has gained 8 pounds. Total lifetime weight loss of 71 pounds. Percent excess weight loss is 39 %. PAST MEDICAL HISTORY: 1. Morbid obesity due to excess calories, BMI initial 60.7 2. Obstructive sleep apnea. 3. Asthma. 4. Osteoarthritis. 5. Depressive disorder 6. Fibromyalgia. 7. Gastroesophageal reflux disease. 8. Diabetes type 2 mellitus 9. Hypertensive heart disease 10. Dyslipidemia. 11. Bilateral lower extremity edema. 12. Polycystic ovarian syndrome. 13. Restless leg syndrome. 14. History of MRSA 15. Cardiomyopathy. 16. Anxiety. 17. Neuropathy 18. Chronic sinusitis. 19. Panniculitis. 20. Factor V Leiden 21. Migraine 22. Obstructive sleep apnea 23. Fatty liver disease 24. Mitral valve prolapse 25. Angina 26. Chronic obstructive pulmonary disease 27. Claustrophobia 28. Posttraumatic stress disorder 29. Iron deficiency anemia PAST SURGICAL HISTORY: 1. with complication of wound infection. 2. D&C. 3. Right breast biopsy. 4. Multiple myringotomy tubes. 5. Tonsillectomy. 6. Adenoidectomy. 7. Heart catheterization. 8. Laparoscopic cholecystectomy. 9. Upper endoscopy. 10. Multiple right knee arthroscopies. 11. Right knee surgery. 12. Gastric bypass, 2013. 13. 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 14. Multiple diagnostic laparoscopies with extensive lysis of adhesions, 2014. 15. Diagnostic laparoscopy with revision of gastrojejunostomy for intussusception, 2014. 16. Appendectomy 17. Cholecystectomy MEDICATIONS: Home Medications Medication Instructions Recorded Confirmed Cyclobenzaprine [Flexeril] 10 mg PO BID 08/05/16 06/16/21 Ferrous Sulfate [Feosol] 325 mg PO DAILY 01/22/18 06/16/21 Metoclopramide HCl [Reglan] 5 mg PO HS 01/22/18 06/16/21 Metoprolol Succinate [Toprol XL] 50 mg PO DAILY 01/22/18 06/16/21 Nitroglycerin Sl Tabs [Nitrostat] 0.4 mg PO Q5M PRN 01/22/18 06/16/21 Zinc 50 mg PO DAILY 03/04/18 06/16/21 rOPINIRole HCL [Requip] 2 mg PO BID 03/21/18 06/16/21 Furosemide [Lasix] 20 mg PO DAILY 05/29/18 06/16/21 Lisinopril [Zestril] 10 mg PO DAILY 09/03/18 06/16/21 Amitriptyline HCl [Elavil] 75 mg PO HS 06/16/21 06/16/21 Benzonatate [Tessalon Perles] 100 mg PO TID PRN 06/16/21 06/16/21 Calcium Carb-Vit D 250Mg-125Un 1 tab PO DAILY 06/16/21 06/16/21 [Oscal 250+D 3.125 Mcg (125 Iu)] Famotidine 20 mg PO BID 06/16/21 06/16/21 Magnesium 250 mg PO HS 06/16/21 06/16/21 Pregabalin [Lyrica] 200 mg PO BID 06/16/21 06/16/21 Rizatriptan Benzoate [Rizatriptan] 10 mg PO BID PRN 06/16/21 06/16/21 Rosuvastatin Calcium [Crestor] 40 mg PO HS 06/16/21 06/16/21 SUMAtriptan SUCCINATE [Imitrex] 100 mg PO BID PRN 06/16/21 06/16/21 Topiramate [Topamax] 100 mg PO DAILY 06/16/21 06/16/21 ALLERGIES: Allergies Allergy/AdvReac Type Severity Reaction Status Date / Time Sulfa (Sulfonamide Allergy Severe Anaphylaxis Verified 06/16/21 11:11 Antibiotics) adhesive tape Allergy BLISTERS Verified 06/16/21 11:11 amoxicillin [From Augmentin] Allergy Rash/Hives Verified 06/16/21 11:11 clavulanic acid Allergy Rash/Hives Verified 06/16/21 11:11 [From Augmentin] codeine Allergy ABDOMINAL Verified 06/16/21 11:11 PAIN, MIGRAINE HEADACHE Iodinated Contrast Media Allergy Itching Verified 06/16/21 11:11 [Iodinated Contrast- Oral and IV Dye] morphine Allergy Itching Verified 06/16/21 11:11 Penicillins Allergy Rash/Hives/Itching/Gi Verified 06/16/21 11:11 Upset adhesive AdvReac Itching Verified 06/16/21 11:11 artificial sweetners Allergy Nausea, Uncoded 06/16/21 11:11 MIGRAINE HEADACHE SOCIAL HISTORY: No active tobacco use. FAMILY HISTORY: Pertinent for bladder, breast, colon cancer and lymphoma, prostate cancer, stomach cancer, morbid obesity as well as factor V Leiden disease. REVIEW OF SYSTEMS: CONSTITUTIONAL: Her highest weight for a 5-foot, 0-inch frame was 310 pounds. [place] body weight is 127 pounds. Body mass index was 60.7. ENDOCRINE: No reports of checking her blood sugar glucose for prior history of insulin-dependent diabetes. MUSCULOSKELETAL: Has chronic and diffuse joint pain, including chronic pain syndrome. Has chronic lower back pain. NEURO: History of chronic pain syndrome. No stroke or seizure disorder. Has neuropathy. GASTROINTESTINAL: No reports of blood in stools. She has intermittent nausea and vomiting. Reports chronic abdominal pain. Has change in bowels with diarrhea and constipation. SKIN: Recurrent panniculitis, including ulcerations and tenderness from her pannus. She takes nystatin powder for control of her symptoms. CARDIOVASCULAR: History of angina. History of chest pain with multiple heart catheterizations. Has hypertensive heart disease. Has dyslipidemia. RESPIRATORY: History of asthma, bronchitis including obstructive sleep apnea. GENITOURINARY: History of irregular masses. PSYCH: History of depression, including anxiety and mental illness. HEMATOLOGIC: History of factor V Leiden carrier. PHYSICAL EXAM: VITAL SIGNS: 5 foot 0, 249 pounds. Body mass index 48.8 Vital Signs Temp 98.5 F 06/16/21 11:27 Pulse 83 06/16/21 18:15 Resp 18 06/16/21 18:15 BP 168/78 06/16/21 18:15 Pulse Ox 99 06/16/21 18:15 Intake & Output 06/16/21 06/16/21 06/17/21 06:59 18:59 06:59 Weight 113.398 kg ABDOMEN: Soft. Protuberant. Mild distention. Tender at the left upper quadrant and left lower quadrant. GENERAL: Well-developed, pleasant female in no acute distress. HEENT: Extraocular movements are grossly intact. No sclerae icterus. MUSCULOSKELETAL: No clubbing, cyanosis, or edema. CHEST: Nonlabored respirations with equal bilateral excursions. CARDIOVASCULAR: Regular rate and rhythm. NEURO: No focal or lateralizing signs. Cranial nerves II-12 grossly intact. PSYCH: Appropriate affect. Alert and order person place and time. SKIN: Good skin. Well perfused. LABS: WBC normal 7.4. Hemoglobin low at 10.7. Total protein low. Glucose of 136 STUDIES: Abdominal x-ray reviewed without free air. This is my independent interpretation. ASSESSMENT: 1. Left upper lower quadrant abdominal, intractable 2. History of peritoneal adhesions 3. History of gastric bypass for obesity 4. Diarrhea with change in bowel 5. History of bowel obstructions 6. Fibromyalgia. 7. Gastroesophageal reflux disease. 8. Diabetes type 2 mellitus 9. Hypertensive heart disease 10. Dyslipidemia. 11. Bilateral lower extremity edema. 12. Polycystic ovarian syndrome. 13. Restless leg syndrome. 14. History of MRSA 15. Cardiomyopathy. 16. Anxiety. 17. Neuropathy 18. Chronic sinusitis. 19. Panniculitis. 20. Factor V Leiden 21. Migraine 22. Obstructive sleep apnea 23. Fatty liver disease 24. Mitral valve prolapse 25. Angina 26. Chronic obstructive pulmonary disease 27. Claustrophobia 28. Posttraumatic stress disorder 29. Iron deficiency anemia 30. Depressive disorder 31. Morbid obesity due to excess calories, BMI initial 60.7 to 48.8 32. Obstructive sleep apnea. 33. Asthma. 34. Osteoarthritis. PLAN: 1. Patient has history of gastric bypass including chronic abdominal pain. With acute abdominal pain including poor oral intake, recommend small bowel follow through for closer view of her bypass risk for bowel obstruction. 2. Patient reports change in bowel habits with diarrhea including pre-existing history of intermittent sigmoid volvulus. Outpatient colonoscopy advised. 3. Outpatient follow-up also reviewed if studies are unremarkable. ADDENDUM: Small bowel follow through report confirms partial small bowel obstruction. Inpatient admission advised. Past Medical History Past Medical History: Asthma, Blood Disorder, Chest Pain / Angina, COPD, Diabetes Mellitus, Fibromyalgia, GERD/Reflux, Hearing Disorder / Deafness, Hyperlipidemia, Hypertension, Liver Disease, Mitral Valve Prolapse (MVP), Musculoskeletal Disorder, Osteoarthritis (OA), Pneumonia, Respiratory Disorder, Sleep Apnea/CPAP/BIPAP Additional Past Medical History / Comment(s): MIGRAINES, DEGENERATIVE DISC DISEASE, FATTY LIVER, LEIDEN FACTOR 5, OCCASIONAL SWELLING IN LOWER EXT.NEUROPATHY, RLS, diabetes is in remission since surgery, chronic back pain, PATIENT HAS BEEN OFF MEDS FOR DIABETES SINCE BARIATRIC SURGERY History of Any Multi-Drug Resistant Organisms: ESBL Year Discovered:: 09/15/18 MDRO Source:: ESBL URINE Past Surgical History: Adenoidectomy, Appendectomy, Bariatric Surgery, Bowel Resection, Breast Surgery, Section, Cholecystectomy, Ear Surgery, Heart Catheterization, Hernia Repair, Orthopedic Surgery, Tonsillectomy Additional Past Surgical History / Comment(s): ARTHROSCOPY RT KNEE X3, RT BREAST BX-NEG, (13) MYRINGOTOMYS. laparoscopic danielle-en-y with lysis of adhesions 2013; Surgical wound debridement x3 ; SX TO REMOVED SCAR TISSUE FROM PREVIOUS ABD SX;EGD ; LAP EXAM- APPY SMALL BOWEL OBSTRUCTION LYSIS OFF ADHESIONS, 3 hernia repairs, 3 bowel resection, 07/2016 colon resection, adhesions removed 03/2018 Past Anesthesia/Blood Transfusion Reactions: No Reported Reaction Additional Past Anesthesia/Blood Transfusion Reaction / Comm: SEVERE HEADACHE AFTER LAST SCOPE, clausterphobia Past Psychological History: Anxiety, Bipolar, Depression, PTSD Smoking Status: Never smoker Past Alcohol Use History: Occasional Past Drug Use History: Marijuana - Past Family History Mother Family Medical History: Deep Vein Thrombosis (DVT), Hypertension, Pulmonary Embolus, Thyroid Disorder Additional Family Medical History / Comment(s): FACTOR 5 LEIDEN, MVP Father Family Medical History: Diabetes Mellitus, Hypertension, Myocardial Infarction ([place]) Additional Family Medical History / Comment(s): AGE 59 [place] Medications and Allergies Home Medications Medication Instructions Recorded Confirmed Type Cyclobenzaprine [Flexeril] 10 mg PO BID 08/05/16 06/16/21 History Ferrous Sulfate [Feosol] 325 mg PO DAILY 01/22/18 06/16/21 History Metoclopramide HCl [Reglan] 5 mg PO HS 01/22/18 06/16/21 History Metoprolol Succinate [Toprol XL] 50 mg PO DAILY 01/22/18 06/16/21 History Nitroglycerin Sl Tabs [Nitrostat] 0.4 mg PO Q5M PRN 01/22/18 06/16/21 History Zinc 50 mg PO DAILY 03/04/18 06/16/21 History rOPINIRole HCL [Requip] 2 mg PO BID 03/21/18 06/16/21 History Furosemide [Lasix] 20 mg PO DAILY 05/29/18 06/16/21 History Lisinopril [Zestril] 10 mg PO DAILY 09/03/18 06/16/21 History Amitriptyline HCl [Elavil] 75 mg PO HS 06/16/21 06/16/21 History Benzonatate [Tessalon Perles] 100 mg PO TID PRN 06/16/21 06/16/21 History Calcium Carb-Vit D 250Mg-125Un 1 tab PO DAILY 06/16/21 06/16/21 History [Oscal 250+D 3.125 Mcg (125 Iu)] Famotidine 20 mg PO BID 06/16/21 06/16/21 History Magnesium 250 mg PO HS 06/16/21 06/16/21 History Pregabalin [Lyrica] 200 mg PO BID 06/16/21 06/16/21 History Rizatriptan Benzoate [Rizatriptan] 10 mg PO BID PRN 06/16/21 06/16/21 History Rosuvastatin Calcium [Crestor] 40 mg PO HS 06/16/21 06/16/21 History SUMAtriptan SUCCINATE [Imitrex] 100 mg PO BID PRN 06/16/21 06/16/21 History Topiramate [Topamax] 100 mg PO DAILY 06/16/21 06/16/21 History Allergies Allergy/AdvReac Type Severity Reaction Status Date / Time Sulfa (Sulfonamide Allergy Severe Anaphylaxis Verified 06/16/21 11:11 Antibiotics) adhesive tape Allergy BLISTERS Verified 06/16/21 11:11 amoxicillin [From Augmentin] Allergy Rash/Hives Verified 06/16/21 11:11 clavulanic acid Allergy Rash/Hives Verified 06/16/21 11:11 [From Augmentin] codeine Allergy ABDOMINAL Verified 06/16/21 11:11 PAIN, MIGRAINE HEADACHE Iodinated Contrast Media Allergy Itching Verified 06/16/21 11:11 [Iodinated Contrast- Oral and IV Dye] morphine Allergy Itching Verified 06/16/21 11:11 Penicillins Allergy Rash/Hives/Itching/Gi Verified 06/16/21 11:11 Upset adhesive AdvReac Itching Verified 06/16/21 11:11 artificial sweetners Allergy Nausea, Uncoded 06/16/21 11:11 MIGRAINE HEADACHE Surgical - Exam Vital Signs Temp Pulse Resp BP Pulse Ox 98 F 75 20 193/94 98 06/16/21 08:29 06/16/21 08:29 06/16/21 08:29 06/16/21 08:29 06/16/21 08:29 Results - Labs 06/16/21 10:30 06/16/21 10:30 Abnormal Lab Results - Last 24 Hours (Table) 06/16/21 06/16/21 06/16/21 Range/Units 09:15 10:30 10:30 RBC 3.68 L (3.80-5.40) m/uL Hgb 10.7 L (11.4-16.0) gm/dL Hct 33.9 L (34.0-46.0) % Sodium 136 L (137-145) mmol/L Glucose 136 H (74-99) mg/dL Calcium 8.0 L (8.4-10.2) mg/dL Total Protein 6.2 L (6.3-8.2) g/dL Urine Appearance Cloudy H (Clear) Urine Nitrite Positive H (Negative) Ur Leukocyte Esterase Large H (Negative) Urine WBC 67 H (0-5) /hpf Ur Squamous Epith Cells 5 H (0-4) /hpf Urine Bacteria Occasional H (None) /hpf Urine Mucus Rare H (None) /hpf Stool Occult Blood (Negative) 06/16/21 Range/Units 11:32 RBC (3.80-5.40) m/uL Hgb (11.4-16.0) gm/dL Hct (34.0-46.0) % Sodium (137-145) mmol/L Glucose (74-99) mg/dL Calcium (8.4-10.2) mg/dL Total Protein (6.3-8.2) g/dL Urine Appearance (Clear) Urine Nitrite (Negative) Ur Leukocyte Esterase (Negative) Urine WBC (0-5) /hpf Ur Squamous Epith Cells (0-4) /hpf Urine Bacteria (None) /hpf Urine Mucus (None) /hpf Stool Occult Blood Positive H (Negative) Diabetes panel 06/16/21 Range/Units 10:30 Sodium 136 L (137-145) mmol/L Potassium 4.1 (3.5-5.1) mmol/L Chloride 103 (98-107) mmol/L Carbon Dioxide 29 (22-30) mmol/L BUN 14 (7-17) mg/dL Creatinine 0.64 (0.52-1.04) mg/dL Glucose 136 H (74-99) mg/dL Calcium 8.0 L (8.4-10.2) mg/dL AST 28 (14-36) U/L ALT 18 (4-34) U/L Alkaline Phosphatase 95 (38-126) U/L Total Protein 6.2 L (6.3-8.2) g/dL Albumin 3.5 (3.5-5.0) g/dL Calcium panel 06/16/21 Range/Units 10:30 Calcium 8.0 L (8.4-10.2) mg/dL Albumin 3.5 (3.5-5.0) g/dL Pituitary panel 06/16/21 Range/Units 10:30 Sodium 136 L (137-145) mmol/L Potassium 4.1 (3.5-5.1) mmol/L Chloride 103 (98-107) mmol/L Carbon Dioxide 29 (22-30) mmol/L BUN 14 (7-17) mg/dL Creatinine 0.64 (0.52-1.04) mg/dL Glucose 136 H (74-99) mg/dL Calcium 8.0 L (8.4-10.2) mg/dL Adrenal panel 06/16/21 Range/Units 10:30 Sodium 136 L (137-145) mmol/L Potassium 4.1 (3.5-5.1) mmol/L Chloride 103 (98-107) mmol/L Carbon Dioxide 29 (22-30) mmol/L BUN 14 (7-17) mg/dL Creatinine 0.64 (0.52-1.04) mg/dL Glucose 136 H (74-99) mg/dL Calcium 8.0 L (8.4-10.2) mg/dL Total Bilirubin 0.6 (0.2-1.3) mg/dL AST 28 (14-36) U/L ALT 18 (4-34) U/L Alkaline Phosphatase 95 (38-126) U/L Total Protein 6.2 L (6.3-8.2) g/dL Albumin 3.5 (3.5-5.0) g/dL
[2021-06-16] MEDS ORDERED: cefTRIAXone IN SWFI 1,000 MG/10 ML SYRINGE IVP STA (16:03)
--- NOTE | 2021-06-16 17:20 | FL ---
Small bowel follow-through HISTORY: Pain for 2 weeks Patient received 15 ounces of Visipaque, serial images were obtained of the abdomen No recent CT available for correlation. 36 seconds fluoroscopy time, 10 images obtained There is no obstruction to flow present. Contrast courses into the colon by 4 hours. No fixation of b owel loops identified of no evident areas of stenosis. Delayed imaging shows some mildly prominent sm all bowel loops. Surgical clips are present. IMPRESSION: There may be a partial small bowel obstruction.
[2021-06-16] MEDS ORDERED: NALOXONE 0.4 MG/ML 1 ML VIAL IV PRN (18:19)
[2021-06-16] MEDS ORDERED: HYDROmorphone 1 MG/ML 1 ML SYRINGE IVP STA (18:22)
[2021-06-16] MEDS: SODIUM CHLORIDE 0.9% 1,000 ML IV SCH (20:39)
[2021-06-16] MEDS ORDERED: SUMATRIPTAN SUCCINATE 100 MG PO PRN (20:56)
[2021-06-16] MEDS ORDERED: BENZONATATE 100 MG CAP PO PRN (20:56)
[2021-06-16] MEDS ORDERED: NITROGLYCERIN SL TABS 0.4 MG TAB SUBLINGUAL PRN (20:56)
[2021-06-16] MEDS ORDERED: SODIUM CHLORIDE 0.9% 2,000 ML IV ONE (20:58)
[2021-06-16] MEDS: ACETAMINOPHEN IV (For NPO) 1,000 MG in EMPTY BAG 1 BAG IVPB SCH (22:19)
[2021-06-16] MEDS: PREGABALIN 100 MG CAP PO SCH (22:21)
[2021-06-16] MEDS: CYCLOBENZAPRINE 10 MG TAB PO SCH (22:21)
[2021-06-16] MEDS: AMITRIPTYLINE HCL 25 MG TAB PO SCH (22:21)
[2021-06-16] MEDS: METOCLOPRAMIDE 5 MG/ML 2 ML VIAL IVP PRN (22:57)
[2021-06-17] MEDS ORDERED: SUMAtriptan succinate 50 MG TAB PO PRN
[2021-06-17] MEDS: ACETAMINOPHEN IV (For NPO) 1,000 MG in EMPTY BAG 1 BAG IVPB SCH ×4 (03:08→16:15)
[2021-06-17] MEDS: HYDROmorphone 1 MG/ML 1 ML SYRINGE IVP PRN ×4 (05:56→22:19)
[2021-06-17] MEDS: METOCLOPRAMIDE 5 MG/ML 2 ML VIAL IVP PRN ×2 (05:56→16:14)
[2021-06-17] MEDS: METOPROLOL SUCCINATE (ER) 50 MG TAB.ER.24H PO SCH (08:22)
[2021-06-17] MEDS: PANTOPRAZOLE 40 MG/10 ML VIAL IV SCH (08:22)
[2021-06-17] MEDS: lisinopriL 10 MG TAB PO SCH (08:22)
[2021-06-17] MEDS: CYCLOBENZAPRINE 10 MG TAB PO SCH ×2 (08:22→22:12)
[2021-06-17] MEDS: PREGABALIN 100 MG CAP PO SCH ×2 (08:22→22:12)
[2021-06-17] MEDS: ENOXAPARIN 30 MG/0.3 ML SYRINGE SQ SCH (08:23)
[2021-06-17] MEDS: TOPIRAMATE 100 MG TAB PO SCH (08:23)
[2021-06-17 08:35] LABS: Basophils # (A) 0.05 X 10*3/uL (0.00-0.10); Basophils % (A) 0.9 %; Eosinophils # (A) 0.09 X 10*3/uL (0.04-0.35); Eosinophils % (A) 1.6 %; HCT 31.9 % (37.2-46.3); HGB 9.8 g/dL (12.0-15.0); Immature Grans, Automated 0.4 %; Lymphocytes # (A) 1.68 X 10*3/uL (0.90-5.00); Lymphocytes % (A) 29.4 %; MCH 28.1 pg (27.0-32.0); MCHC 30.7 g/dL (32.0-37.0); MCV 91.4 fL (80.0-97.0); Mean Platelet Volume 10.6 fL (9.5-12.2); Monocytes # (A) 0.39 X 10*3/uL (0.20-1.00); Monocytes % (A) 6.8 %; NRBC Per 100 WBC 0 /100 WBCS (0.0-0.0); Neutrophils # (A) 3.48 X 10*3/uL (1.80-7.70); Neutrophils % (A) 60.9 %; Platelet Count 180 X 10*3/uL (140-440); RBC 3.49 X 10*6/uL (4.10-5.20); RDW 13.8 % (11.5-14.5); WBC 5.71 X 10*3/uL (4.50-10.00)
[2021-06-17 09:00] LABS: African American GFR (CKD) 117.9 (60.0-200.0); BUN/Creat Ratio 8.86 Ratio (12.00-20.00); Blood Urea Nitrogen 6.2 mg/dL (9.0-27.0); Calcium 8.1 mg/dL (8.7-10.3); Non-African American GFR(CKD) 101.7 (60.0-200.0); Phosphorus 3.3 mg/dL (2.4-5.1); Potassium 4.1 mmol/L (3.5-5.5)
[2021-06-17] MEDS: SODIUM CHLORIDE 0.9% 1,000 ML IV SCH ×2 (12:00→22:13)
[2021-06-17] MEDS: ONDANSETRON 4 MG/2 ML VIAL IVP PRN ×2 (12:00→21:05)
--- NOTE | 2021-06-17 12:50 | P.CONS ---
History of Present Illness - Reason for Consult Consult date: 06/17/21 HTN Requesting physician: Latricia Dumont - Chief Complaint abdominal pain - History of Present Illness Patient is a 50-year-old with diabetes mellitus type 2, GERD, fibromyalgia, dyslipidemia, PCOS, cardiomyopathy, and multiple other conditions who presented to the ER with complaints of abdominal pain. In the ER she underwent an extensive evaluation. On arrival she was hypertensive with a blood pressure of 193/94. Initial laboratory analysis showed hemoglobin of 10.7, urinalysis with proteinuria, and positive fecal occult blood testing. Laboratory analysis is otherwise unremarkable. Initial KUB showed nonobstructive bowel gas pattern. She was admitted to general surgery and we are asked to consult for hypertensive management. Small bowel follow through did show obstruction. Patient seen and examined at bedside. She continues to have left sided abdominal pain with nausea, still no bowel movement. At home was unable to tolerate orals without significant nausea. She complaints of malodorous stools and flatus for the last 2 weeks that is worsening. She has been out of most of her medications as she no longer has a PCP and lives in [place]. Pain is left sided and intermitted and has been worsening over the last 2 weeks. She states that her neuropathy has been worse. She denies any recent antibiotics. She has not had a gastric bypass panel completed in several years and has required IV iron infusion in the past. Pertinent positives and negatives as discussed in HPI, a complete review of systems was performed and all other systems are negative. General: non toxic, no distress, appears at stated age Derm: warm, dry Head: atraumatic, normocephalic, symmetric Eyes: EOMI, no lid lag, anicteric sclera, pupils equal round reactive to light ENT: Nose and ears atraumatic, no thrush, no pharyngeal erythema Neck: No thyromegaly, no cervical lymphadenopathy, trachea midline, supple Mouth: no lip lesion, mucus membranes moist Cardiovascular: S1S2 reg, no murmur, positive posterior tibial pulse bilateral, no edema, capillary refill less than 2 seconds Lungs: Decreased bs bilateral, no ronchi, no rales, no wheeze, no accessory muscle use Abdominal: soft, + TTP LUQ and LLQ, no guarding, no appreciable organomegaly, normal bowel sounds Ext: no gross muscle atrophy, muscle strength muscle strength 5 out of 5 in all 4 extremities, no contractures Neuro: CN II-XI grossly intact, light touch intact all 4 extremities, finger to nose within normal limits, Psych: Alert, oriented, appropriate affect Assessment/plan: Intractable left upper quadrant pain possibly secondary to bowel obstruction versus + FOB -Management per general surgery. Plan for small bowel follow-through. Outpatient colonoscopy. -Pain Control Anemia - check iron, B12, folate - follow CBC Diabetes mellitus type 2 - off meds since gastric bypass - check A1C GERD - PPI Dyslipidemia - not on meds at baseline - outpatient follow-up Hypertension, accelerated - resume home lisinopril in addition to her metoprolo whihc has already been restarted - follow blood pressures Cardiomyopathy with mitral valve prolapse - last echo 2018, mild LVH EF 60-65% - outpatient follow up Chronic: Factor V Leiden Polycystic ovarian syndrome Restless leg Neuropathy Obstructive sleep apnea Fatty liver disease COPD without exacerabtion Post traumatic stress disorder Iron deficiency anemia Depressive disorder Osteoarthritis Thank you for allowing us to participate in the care of this pleasant patient. Do not hesitate to contact us with questions. Someone can be reached from the [facility] hospitalist group all hours of the day at [phone] or via Tip or Skip. Active Medications Generic Name Dose Route Start Last Admin Trade Name Freq PRN Reason Stop Dose Admin Amitriptyline HCl 75 mg 06/16/21 21:00 06/16/21 22:21 Amitriptyline Hcl 25 Mg Tab PO 75 mg HS JERALD Administration Benzonatate 100 mg 06/16/21 20:56 Benzonatate 100 Mg Cap PO TID PRN Cough Cyclobenzaprine HCl 10 mg 06/16/21 21:00 06/17/21 08:22 Cyclobenzaprine 10 Mg Tab PO 10 mg BID JERALD Administration Enoxaparin Sodium 30 mg 06/17/21 09:00 06/17/21 08:23 Enoxaparin 30 Mg/0.3 Ml Syringe SQ 30 mg DAILY JERALD Administration Hydromorphone HCl 1 mg 06/16/21 20:54 06/17/21 12:00 Hydromorphone 1 Mg/Ml 1 Ml Syringe IVP 1 mg Q3HR PRN Administration Moderate to Severe Pain Sodium Chloride 1,000 mls @ 75 mls/hr 06/16/21 18:30 06/17/21 12:00 Saline 0.9% IV 75 mls/hr .[id number] EJRALD Administration Acetaminophen 1,000 mg/ IV 100 mls @ 400 mls/hr 06/16/21 21:00 06/17/21 08:24 Solution IVPB 06/17/21 15:14 400 mls/hr Q6H JERALD Administration Lisinopril 10 mg 06/17/21 09:00 06/17/21 08:22 Lisinopril 10 Mg Tab PO 10 mg DAILY JERALD Administration Metoclopramide HCl 10 mg 06/16/21 20:54 06/17/21 05:56 Metoclopramide 5 Mg/Ml 2 Ml Vial IVP 10 mg Q6H PRN Administration Nausea And Vomiting Metoprolol Succinate 50 mg 06/17/21 09:00 06/17/21 08:22 Metoprolol Succinate (Er) 50 Mg Tab.Er.24h PO 50 mg DAILY JERALD Administration Naloxone HCl 0.2 mg 06/16/21 18:19 Naloxone 0.4 Mg/Ml 1 Ml Vial IV Q2M PRN Opioid Reversal Ondansetron HCl 4 mg 06/16/21 18:19 06/17/21 12:00 Ondansetron 4 Mg/2 Ml Vial IVP 4 mg Q8HR PRN Administration Nausea And Vomiting Pantoprazole Sodium 40 mg 06/17/21 09:00 06/17/21 08:22 Pantoprazole 40 Mg/10 Ml Vial IV 40 mg DAILY JERALD Administration Pregabalin 200 mg 06/16/21 21:00 06/17/21 08:22 Pregabalin 100 Mg Cap PO 200 mg BID JERALD Administration Ropinirole HCl 2 mg 06/16/21 21:30 06/17/21 08:47 Ropinirole Hcl 1 Mg Tab PO Not Given BID JERALD Sumatriptan Succinate 100 mg 06/17/21 00:00 Sumatriptan Succinate 50 Mg Tab PO Q2H PRN Migraine Headache Topiramate 100 mg 06/17/21 09:00 06/17/21 08:23 Topiramate 100 Mg Tab PO 100 mg DAILY JERALD Administration Past Medical History Past Medical History: Asthma, Blood Disorder, Chest Pain / Angina, COPD, Diabetes Mellitus, Fibromyalgia, GERD/Reflux, Hearing Disorder / Deafness, Hyperlipidemia, Hypertension, Liver Disease, Mitral Valve Prolapse (MVP), Musculoskeletal Disorder, Osteoarthritis (OA), Pneumonia, Respiratory Disorder, Sleep Apnea/CPAP/BIPAP Additional Past Medical History / Comment(s): MIGRAINES, DEGENERATIVE DISC DISEASE, FATTY LIVER, LEIDEN FACTOR 5, OCCASIONAL SWELLING IN LOWER EXT.NEUROPATHY, RLS, diabetes is in remission since surgery, chronic back pain, PATIENT HAS BEEN OFF MEDS FOR DIABETES SINCE BARIATRIC SURGERY History of Any Multi-Drug Resistant Organisms: ESBL Year Discovered:: 09/15/18 MDRO Source:: ESBL URINE Past Surgical History: Adenoidectomy, Appendectomy, Bariatric Surgery, Bowel Resection, Breast Surgery, Section, Cholecystectomy, Ear Surgery, Heart Catheterization, Hernia Repair, Orthopedic Surgery, Tonsillectomy Additional Past Surgical History / Comment(s): ARTHROSCOPY RT KNEE X3, RT BREAST BX-NEG, (13) MYRINGOTOMYS. laparoscopic danielle-en-y with lysis of adhesions 2013; Surgical wound debridement x3 ; SX TO REMOVED SCAR TISSUE FROM PREVIOUS ABD SX;EGD ; LAP EXAM- APPY SMALL BOWEL OBSTRUCTION LYSIS OFF ADHESIONS, 3 hernia repairs, 3 bowel resection, 07/2016 colon resection, adhesions removed 03/2018 Past Anesthesia/Blood Transfusion Reactions: No Reported Reaction Additional Past Anesthesia/Blood Transfusion Reaction / Comm: SEVERE HEADACHE AFTER LAST SCOPE, clausterphobia Past Psychological History: Anxiety, Bipolar, Depression, PTSD Smoking Status: Never smoker Past Alcohol Use History: Occasional Past Drug Use History: Marijuana - Past Family History Mother Family Medical History: Deep Vein Thrombosis (DVT), Hypertension, Pulmonary Embolus, Thyroid Disorder Additional Family Medical History / Comment(s): FACTOR 5 LEIDEN, MVP Father Family Medical History: Diabetes Mellitus, Hypertension, Myocardial Infarction (OR) Additional Family Medical History / Comment(s): AGE 59 OR Medications and Allergies Home Medications Medication Instructions Recorded Confirmed Type Cyclobenzaprine [Flexeril] 10 mg PO BID 08/05/16 06/16/21 History Ferrous Sulfate [Feosol] 325 mg PO DAILY 01/22/18 06/16/21 History Metoclopramide HCl [Reglan] 5 mg PO HS 01/22/18 06/16/21 History Metoprolol Succinate [Toprol XL] 50 mg PO DAILY 01/22/18 06/16/21 History Nitroglycerin Sl Tabs [Nitrostat] 0.4 mg PO Q5M PRN 01/22/18 06/16/21 History Zinc 50 mg PO DAILY 03/04/18 06/16/21 History rOPINIRole HCL [Requip] 2 mg PO BID 03/21/18 06/16/21 History Furosemide [Lasix] 20 mg PO DAILY 05/29/18 06/16/21 History Lisinopril [Zestril] 10 mg PO DAILY 09/03/18 06/16/21 History Amitriptyline HCl [Elavil] 75 mg PO HS 06/16/21 06/16/21 History Benzonatate [Tessalon Perles] 100 mg PO TID PRN 06/16/21 06/16/21 History Calcium Carb-Vit D 250Mg-125Un 1 tab PO DAILY 06/16/21 06/16/21 History [Oscal 250+D 3.125 Mcg (125 Iu)] Famotidine 20 mg PO BID 06/16/21 06/16/21 History Magnesium 250 mg PO HS 06/16/21 06/16/21 History Pregabalin [Lyrica] 200 mg PO BID 06/16/21 06/16/21 History Rizatriptan Benzoate [Rizatriptan] 10 mg PO BID PRN 06/16/21 06/16/21 History Rosuvastatin Calcium [Crestor] 40 mg PO HS 06/16/21 06/16/21 History SUMAtriptan SUCCINATE [Imitrex] 100 mg PO BID PRN 06/16/21 06/16/21 History Topiramate [Topamax] 100 mg PO DAILY 06/16/21 06/16/21 History Allergies Allergy/AdvReac Type Severity Reaction Status Date / Time Sulfa (Sulfonamide Allergy Severe Anaphylaxis Verified 06/16/21 11:11 Antibiotics) adhesive tape Allergy BLISTERS Verified 06/16/21 11:11 amoxicillin [From Augmentin] Allergy Rash/Hives Verified 06/16/21 11:11 clavulanic acid Allergy Rash/Hives Verified 06/16/21 11:11 [From Augmentin] codeine Allergy ABDOMINAL Verified 06/16/21 11:11 PAIN, MIGRAINE HEADACHE Iodinated Contrast Media Allergy Itching Verified 06/16/21 11:11 [Iodinated Contrast- Oral and IV Dye] morphine Allergy Itching Verified 06/16/21 11:11 Penicillins Allergy Rash/Hives/Itching/Gi Verified 06/16/21 11:11 Upset adhesive AdvReac Itching Verified 06/16/21 11:11 artificial sweetners Allergy Nausea, Uncoded 06/16/21 11:11 MIGRAINE HEADACHE Physical Exam Osteopathic Statement: *. No significant issues noted on an osteopathic structural exam other than those noted in the History and Physical/Consult. Vitals: Vital Signs Temp Pulse Pulse Resp BP BP Pulse Ox 06/17/21 02:20 98.5 F 67 15 151/79 94 L 06/16/21 19:09 98.3 F 18 189/97 98 06/16/21 18:15 83 18 168/78 99 06/16/21 15:31 63 18 166/82 98 06/16/21 11:27 98.5 F 72 18 189/94 97 06/16/21 10:30 61 18 165/84 06/16/21 09:40 84 18 172/99 97 06/16/21 08:29 98 F 75 20 193/94 98 Intake and Output 06/16/21 06/17/21 06/17/21 22:59 06:59 14:59 Intake Total 2725 Balance 2725 Intake: Intake, IV Titration 2725 Amount ACETAMINOPHEN IV (For NPO 200 ) 1,000 mg In Empty Bag 1 bag @ 400 mls/hr IVPB Q6H JERALD Rx#:[id number] Sodium Chloride 0.9% 1, 525 000 ml @ 75 mls/hr IV . [id number] JERALD Rx#:[id number] Sodium Chloride 0.9% 2, 2000 000 ml @ 999 mls/hr IV . Q2H1M [facility] Rx#:[id number] Other: # Voids 2 Weight 113.398 kg Results CBC & Chem 7: 06/17/21 05:39 06/17/21 05:39 Labs: Abnormal Lab Results - Last 24 Hours (Table) 06/16/21 06/16/21 06/16/21 Range/Units 09:15 10:30 10:30 RBC 3.68 L (3.80-5.40) m/uL Hgb 10.7 L (11.4-16.0) gm/dL Hct 33.9 L (34.0-46.0) % Sodium 136 L (137-145) mmol/L Glucose 136 H (74-99) mg/dL Calcium 8.0 L (8.4-10.2) mg/dL Total Protein 6.2 L (6.3-8.2) g/dL Urine Appearance Cloudy H (Clear) Urine Nitrite Positive H (Negative) Ur Leukocyte Esterase Large H (Negative) Urine WBC 67 H (0-5) /hpf Ur Squamous Epith Cells 5 H (0-4) /hpf Urine Bacteria Occasional H (None) /hpf Urine Mucus Rare H (None) /hpf Stool Occult Blood (Negative) 06/16/21 Range/Units 11:32 RBC (3.80-5.40) m/uL Hgb (11.4-16.0) gm/dL Hct (34.0-46.0) % Sodium (137-145) mmol/L Glucose (74-99) mg/dL Calcium (8.4-10.2) mg/dL Total Protein (6.3-8.2) g/dL Urine Appearance (Clear) Urine Nitrite (Negative) Ur Leukocyte Esterase (Negative) Urine WBC (0-5) /hpf Ur Squamous Epith Cells (0-4) /hpf Urine Bacteria (None) /hpf Urine Mucus (None) /hpf Stool Occult Blood Positive H (Negative) Microbiology - Last 24 Hours (Table) 06/16/21 09:15 Urine Culture - Preliminary Urine,Voided
--- NOTE | 2021-06-17 12:51 | P.PN ---
Subjective Progress Note Date: 06/17/21 CHIEF COMPLAINT: Intractable abdominal pain HISTORY OF PRESENT ILLNESS: Jeannie Klein is a 50-year-old female who presents with over 2 week history of abdominal pain. She reports decreased passage of flatus. She has multiple drug allergies BUT she tolerated dilaudid and IV tylenol for pain. She is tolerating ice chips. She reports abdominal pain still present. She is admitted for bowel obstruction. REVIEW OF SYSTEMS: No bowel movements. No fevers or chills. No new chest pain. No productive sputum PHYSICAL EXAM: VITAL SIGNS: Reviewed CONSTITUTIONAL: Well developed and in no acute distress. EYES: Conjuctivae without sclera icterus. Extraocular movements grossly intact. HEAD, EARS, NOSE, THROAT: Moist buccal mucosa. Head is atraumatic, normocephalic. Hears conversational speech. No nasal drainage. RESPIRATORY: Non-labored respirations and equal bilateral excursions. CARDIOVASCULAR: Palpable 2+ radial pulses. ABDOMEN: Protuberant. Tender left upper and lower abdomen. No diffuse peritonitis. MUSCULOSKELETAL: No gross deformity of the lower extremities noted. No clubbing. No cyanosis. SKIN: Good skin turgor. Well perfused. NEUROLOGIC: Cranial nerves II through XII grossly intact. No focal or lateralizing signs. PSYCH: Appropriate affect. Alert and oriented to person, place and time. LABS: WBC normal. Anemia with Hgb 9.7. ASSESSMENT: 1. Small bowel obstruction. PLAN: 1. Trial of clear liquid diet for nutrition 2. Adjust pain medications with scheduled IV tylenol and dilaudid. NSAIDS contraindicated with her bypass and history of ulcers. 3. Surgical options described re: small bowel obstruction. 4. IV antibiotics for UTI Objective - Vital Signs Vital signs: Vital Signs Temp 97.4 F L 06/17/21 08:00 Pulse 58 L 06/17/21 08:00 Resp 18 06/17/21 08:00 BP 152/78 06/17/21 08:00 Pulse Ox 95 06/17/21 08:00 Intake & Output 06/16/21 06/17/21 06/17/21 18:59 06:59 18:59 Intake Total 2725 Balance 2725 Weight 113.398 kg 113.398 kg Intake: Intake, IV Titration 2725 Amount ACETAMINOPHEN IV (For NPO 200 ) 1,000 mg In Empty Bag 1 bag @ 400 mls/hr IVPB Q6H JERALD Rx#:[id number] Sodium Chloride 0.9% 1, 525 000 ml @ 75 mls/hr IV . [id number] [facility] Rx#:[id number] Sodium Chloride 0.9% 2, 2000 000 ml @ 999 mls/hr IV . Q2H1M ONE Rx#:[id number] Other: # Voids 2 - Labs CBC & Chem 7: 06/17/21 05:39 06/17/21 05:39 Labs: Abnormal Lab Results - Last 24 Hours (Table) 06/17/21 06/17/21 Range/Units 05:39 05:39 RBC 3.49 L (4.10-5.20) X 10*6/uL Hgb 9.8 L (12.0-15.0) g/dL Hct 31.9 L (37.2-46.3) % MCHC 30.7 L (32.0-37.0) g/dL Carbon Dioxide 29.0 H (20.0-27.5) mmol/L Anion Gap 6.00 L (10.00-18.00) mmol/L BUN 6.2 L (9.0-27.0) mg/dL BUN/Creatinine Ratio 8.86 L (12.00-20.00) Ratio Calcium 8.1 L (8.7-10.3) mg/dL Microbiology - Last 24 Hours (Table) 06/16/21 09:15 Urine Culture - Preliminary Urine,Voided
[2021-06-17 17:05] LABS: % Iron Saturation 8.41 (12.00-45.00); Chol/HDL Ratio 3.32 Ratio; Iron 36 ug/dL (50-170); LDL Cholesterol,Calculated 108.7 mg/dL (0.0-131.0); Total Iron Binding Capacity 427 ug/dL (228-460)
[2021-06-17 18:03] LABS: Ferritin 32.3 ng/mL (10.0-291.0)
[2021-06-17] MEDS: AMITRIPTYLINE HCL 25 MG TAB PO SCH (22:12)
[2021-06-18] MEDS: ACETAMINOPHEN IV (For NPO) 1,000 MG in EMPTY BAG 1 BAG IVPB SCH ×3 (02:22→12:31)
[2021-06-18] MEDS: METOCLOPRAMIDE 5 MG/ML 2 ML VIAL IVP PRN ×2 (04:14→11:25)
[2021-06-18] MEDS: HYDROmorphone 1 MG/ML 1 ML SYRINGE IVP PRN ×4 (04:14→21:14)
[2021-06-18] MEDS: ONDANSETRON 4 MG/2 ML VIAL IVP PRN ×2 (07:15→21:14)
[2021-06-18 09:13] LABS: HCT 34.2 % (37.2-46.3); HGB 10.5 g/dL (12.0-15.0); MCH 28.8 pg (27.0-32.0); MCHC 30.7 g/dL (32.0-37.0); MCV 93.7 fL (80.0-97.0); Mean Platelet Volume 11.5 fL (9.5-12.2); NRBC Per 100 WBC 0 /100 WBCS (0.0-0.0); Platelet Count 211 X 10*3/uL (140-440); RBC 3.65 X 10*6/uL (4.10-5.20); WBC 7.98 X 10*3/uL (4.50-10.00)
[2021-06-18] MEDS: TOPIRAMATE 100 MG TAB PO SCH (09:27)
[2021-06-18] MEDS: PANTOPRAZOLE 40 MG/10 ML VIAL IV SCH (09:27)
[2021-06-18] MEDS: PREGABALIN 100 MG CAP PO SCH ×2 (09:27→21:05)
[2021-06-18] MEDS: ENOXAPARIN 30 MG/0.3 ML SYRINGE SQ SCH (09:27)
[2021-06-18] MEDS: METOPROLOL SUCCINATE (ER) 50 MG TAB.ER.24H PO SCH (09:27)
[2021-06-18] MEDS: CYCLOBENZAPRINE 10 MG TAB PO SCH ×2 (09:28→21:05)
[2021-06-18] MEDS: lisinopriL 10 MG TAB PO SCH (09:28)
[2021-06-18 09:30] LABS: African American GFR (CKD) 104.9 (60.0-200.0); Albumin 3.5 g/dL (3.8-4.9); Albumin/Globulin Ratio 1.76 (1.60-3.17); Anion Gap 6.5 mmol/L (10.00-18.00); BUN/Creat Ratio 8.59 Ratio (12.00-20.00); Blood Urea Nitrogen 6.6 mg/dL (9.0-27.0); Calcium 8.5 mg/dL (8.7-10.3); Carbon Dioxide 27.9 mmol/L (20.0-27.5); Non-African American GFR(CKD) 90.5 (60.0-200.0); Potassium 4.2 mmol/L (3.5-5.5); Total Bilirubin 0.3 mg/dL (0.30-1.20); Total Protein 5.6 g/dL (6.2-8.2)
[2021-06-18] MEDS: SODIUM CHLORIDE 0.9% 1,000 ML IV SCH ×2 (11:25→21:09)
--- NOTE | 2021-06-18 13:00 | P.PN ---
Subjective Progress Note Date: 06/18/21 Principal diagnosis: Still has pain. She is walking. Plan for surgery tomorrow. CHIEF COMPLAINT: Intractable abdominal pain HISTORY OF PRESENT ILLNESS: Jeannie Klein is a 50-year-old female who presents with abdominal pain and bowel obstruction. Still no passage of flatus. No bowel movements. She is tolerating sips of liquids. Pain is still present. Initial hypertension now resolved. Her urine is clear light yellow per her description. REVIEW OF SYSTEMS: No bowel movements. No fevers or chills. No new chest pain. No productive sputum PHYSICAL EXAM: VITAL SIGNS: Reviewed CONSTITUTIONAL: Well developed and in no acute distress. EYES: Conjuctivae without sclera icterus. Extraocular movements grossly intact. HEAD, EARS, NOSE, THROAT: Moist buccal mucosa. Head is atraumatic, normocephalic. Hears conversational speech. No nasal drainage. RESPIRATORY: Non-labored respirations and equal bilateral excursions. CARDIOVASCULAR: Palpable 2+ radial pulses. ABDOMEN: Protuberant. Tender left upper and lower abdomen. MUSCULOSKELETAL: No gross deformity of the lower extremities noted. No clubbing. No cyanosis. SKIN: Good skin turgor. Well perfused. NEUROLOGIC: Cranial nerves II through XII grossly intact. No focal or l ateralizing signs. PSYCH: Appropriate affect. Alert and oriented to person, place and time. LABS: WBC normal. Anemia with Hgb up 9.8 to 10.5. ASSESSMENT: 1. Small bowel obstruction. PLAN: 1. Surgical intervention with lysis of adhesions possible bowel resection reviewed via robotic/laparoscopy 2. NPO after midnight 3. DVT prevention with leg exercises reviewed including with Lovenox 4. Care plan reviewed in detail and patient verbalized understanding. Objective - Vital Signs Vital signs: Vital Signs Temp 98.4 F 06/18/21 08:00 Pulse 92 06/18/21 08:00 Resp 16 06/18/21 08:00 BP 99/57 06/18/21 08:00 Pulse Ox 96 06/18/21 08:00 Intake & Output 06/17/21 06/18/21 06/18/21 18:59 06:59 18:59 Intake Total 900 Output Total 600 Balance 300 Intake: Intake, IV Titration 900 Amount Sodium Chloride 0.9% 1, 900 000 ml @ 75 mls/hr IV . [id number] [facility] Rx#:[id number] Output: Stool 600 Other: # Voids 2 2 - Labs CBC & Chem 7: 06/18/21 05:28 06/18/21 05:28 Labs: Abnormal Lab Results - Last 24 Hours (Table) 06/16/21 06/16/21 06/18/21 Range/Units 10:30 10:30 05:28 RBC 3.65 L (4.10-5.20) X 10*6/uL Hgb 10.5 L (12.0-15.0) g/dL Hct 34.2 L (37.2-46.3) % MCHC 30.7 L (32.0-37.0) g/dL Carbon Dioxide (20.0-27.5) mmol/L Anion Gap (10.00-18.00) mmol/L BUN (9.0-27.0) mg/dL BUN/Creatinine Ratio (12.00-20.00) Ratio Glucose (70-110) mg/dL Hemoglobin A1c 7.0 H (0.0-6.0) % Calcium (8.7-10.3) mg/dL Iron 36 L (50-170) ug/dL % Saturation 8.41 L (12.00-45.00) Total Protein (6.2-8.2) g/dL Albumin (3.8-4.9) g/dL Triglycerides 166.00 H (0.00-149.00) mg/dL Cholesterol 203.00 H (0.00-200.00) mg/dL HDL Cholesterol 61.10 H (40.00-60.00) mg/dL Vitamin D 25-Hydroxy 19.1 L (30.0-100.0) ng/mL 06/18/21 Range/Units 05:28 RBC (4.10-5.20) X 10*6/uL Hgb (12.0-15.0) g/dL Hct (37.2-46.3) % MCHC (32.0-37.0) g/dL Carbon Dioxide 27.9 H (20.0-27.5) mmol/L Anion Gap 6.50 L (10.00-18.00) mmol/L BUN 6.6 L (9.0-27.0) mg/dL BUN/Creatinine Ratio 8.59 L (12.00-20.00) Ratio Glucose 126 H (70-110) mg/dL Hemoglobin A1c (0.0-6.0) % Calcium 8.5 L (8.7-10.3) mg/dL Iron (50-170) ug/dL % Saturation (12.00-45.00) Total Protein 5.6 L (6.2-8.2) g/dL Albumin 3.5 L (3.8-4.9) g/dL Triglycerides (0.00-149.00) mg/dL Cholesterol (0.00-200.00) mg/dL HDL Cholesterol (40.00-60.00) mg/dL Vitamin D 25-Hydroxy (30.0-100.0) ng/mL Microbiology - Last 24 Hours (Table) 06/16/21 09:15 Urine Culture - Preliminary Urine,Voided Gram Neg Bacilli
[2021-06-18] MEDS: SODIUM FERRIC GLUCONAT-SUCROSE 125 MG in SODIUM CHLORIDE 0.9% 100 ML IVPB SCH (16:06)
--- NOTE | 2021-06-18 18:05 | P.PN ---
Subjective Progress Note Date: 06/18/21 (delayed charting seen at 3 pm) Principal diagnosis: abdominal pain Patient is a 50-year-old with diabetes mellitus type 2, GERD, fibromyalgia, dyslipidemia, PCOS, cardiomyopathy, and multiple other conditions who presented to the ER with complaints of abdominal pain. In the ER she underwent an extensive evaluation. On arrival she was hypertensive with a blood pressure of 193/94. Initial laboratory analysis showed hemoglobin of 10.7, urinalysis with proteinuria, and positive fecal occult blood testing. Laboratory analysis is otherwise unremarkable. Initial KUB showed nonobstructive bowel gas pattern. She was admitted to general surgery and we are asked to consult for hypertensive management. Small bowel follow through did show obstruction. Patient seen and examined at bedside. Feeling tired, still with some nausea and some abdominal pain. discussed results of testing. General: ill appearing, no distress, appears at stated age, obese Derm: warm, dry, multiple tattoos Head: atraumatic, normocephalic, symmetric Eyes: EOMI, no lid lag, anicteric sclera Mouth: no lip lesion, mucus membranes moist Cardiovascular: S1S2 reg, no murmur, positive posterior tibial pulse bilateral, Lungs: decreased bs bilateral, no rhonchi, no rales , no accessory muscle use Abdominal: soft, +tender to palpation LUQ and LLQ, no guarding, no appreciable organomegaly Ext: no gross muscle atrophy, no edema, no contractures Neuro: CN II-XI grossly intact, no focal neuro deficits Psych: Alert, oriented, appropriate affect Assessment/plan: Intractable left upper quadrant pain possibly secondary to bowel obstruction versus + FOB -Management per general surgery. Plan for RODOLFO in AM. Outpatient colonoscopy. -Pain Control Severe Iron deficiency Anemia - IV iron X 3 - check iron, B12, folate- normal - follow CBC Diabetes mellitus type 2 - off meds since gastric bypass - A1C 7 - continue with diet control GERD - PPI Dyslipidemia - not on meds at baseline - outpatient follow-up Hypertension, accelerated - resume home lisinopril in addition to her metoprolo which has already been restarted - follow blood pressures Cardiomyopathy with mitral valve prolapse - last echo 2018, mild LVH EF 60-65% - outpatient follow up VIt D def - start D 50,000 units once weekly for 12 weeks on discharge. Chronic: Factor V Leiden Polycystic ovarian syndrome Restless leg Neuropathy Obstructive sleep apnea Fatty liver disease COPD without exacerabtion Post traumatic stress disorder Iron deficiency anemia Depressive disorder Osteoarthritis Thank you for allowing us to participate in the care of this pleasant patient. Do not hesitate to contact us with questions. Someone can be reached from the [facility] hospitalist group all hours of the day at [phone] or via perfect serve. Objective - Vital Signs Vital signs: Vital Signs Temp 97.6 F 06/18/21 14:00 Pulse 89 06/18/21 14:00 Resp 16 06/18/21 14:00 BP 104/63 06/18/21 14:00 Pulse Ox 96 06/18/21 14:00 Intake & Output 06/17/21 06/18/21 06/18/21 18:59 06:59 18:59 Intake Total 900 180 Output Total 600 Balance 300 180 Intake: Intake, IV Titration 900 Amount Sodium Chloride 0.9% 1, 900 000 ml @ 75 mls/hr IV . [id number] [facility] Rx#:[id number] Oral 180 Output: Stool 600 Other: # Voids 2 2 3 - Labs CBC & Chem 7: 06/18/21 05:28 06/18/21 05:28 Labs: Abnormal Lab Results - Last 24 Hours (Table) 06/18/21 06/18/21 Range/Units 05:28 05:28 RBC 3.65 L (4.10-5.20) X 10*6/uL Hgb 10.5 L (12.0-15.0) g/dL Hct 34.2 L (37.2-46.3) % MCHC 30.7 L (32.0-37.0) g/dL Carbon Dioxide 27.9 H (20.0-27.5) mmol/L Anion Gap 6.50 L (10.00-18.00) mmol/L BUN 6.6 L (9.0-27.0) mg/dL BUN/Creatinine Ratio 8.59 L (12.00-20.00) Ratio Glucose 126 H (70-110) mg/dL Calcium 8.5 L (8.7-10.3) mg/dL Total Protein 5.6 L (6.2-8.2) g/dL Albumin 3.5 L (3.8-4.9) g/dL Microbiology - Last 24 Hours (Table) 06/16/21 09:15 Urine Culture - Final Urine,Voided Escherichia coli
[2021-06-18] MEDS: AMITRIPTYLINE HCL 25 MG TAB PO SCH (21:05)
[2021-06-19] MEDS: HYDROmorphone 1 MG/ML 1 ML SYRINGE IVP PRN ×4 (03:40→16:53)
[2021-06-19] MEDS: METOCLOPRAMIDE 5 MG/ML 2 ML VIAL IVP PRN ×2 (03:47→13:05)
[2021-06-19 07:43] LABS: African American GFR (CKD) >90 (>60 ml/min/1.73 sqM); Anion Gap 5 mmol/L; Blood Urea Nitrogen 8 mg/dL (7-17); Calcium 8.2 mg/dL (8.4-10.2); Carbon Dioxide 28 mmol/L (22-30); Chloride 104 mmol/L (98-107); Glucose 98 mg/dL (74-99); Non-African American GFR(CKD) 80 (>60 ml/min/1.73 sqM); Potassium 4.4 mmol/L (3.5-5.1); Sodium 137 mmol/L (137-145)
[2021-06-19] MEDS: ENOXAPARIN 30 MG/0.3 ML SYRINGE SQ SCH (07:53)
[2021-06-19] MEDS: PREGABALIN 100 MG CAP PO SCH (07:54)
[2021-06-19] MEDS: CYCLOBENZAPRINE 10 MG TAB PO SCH (07:54)
[2021-06-19] MEDS: PANTOPRAZOLE 40 MG/10 ML VIAL IV SCH (08:02)
[2021-06-19] MEDS: ONDANSETRON 4 MG/2 ML VIAL IVP PRN (08:22)
[2021-06-19] MEDS: METOPROLOL SUCCINATE (ER) 50 MG TAB.ER.24H PO SCH (09:17)
[2021-06-19] MEDS: SODIUM FERRIC GLUCONAT-SUCROSE 125 MG in SODIUM CHLORIDE 0.9% 100 ML IVPB SCH (09:18)
[2021-06-19] MEDS: TOPIRAMATE 100 MG TAB PO SCH (09:22)
[2021-06-19] MEDS: lisinopriL 10 MG TAB PO SCH (09:23)
[2021-06-19 09:29] LABS: HGB 10.5 gm/dL (11.4-16.0); Hypochromasia Slight; MCH 29.8 pg (25.0-35.0); MCHC 31.8 g/dL (31.0-37.0); MCV 93.7 fL (80.0-100.0); Mean Platelet Volume 8.6; Platelet Count 249 k/uL (150-450); RBC 3.52 m/uL (3.80-5.40); RDW 14.6 % (11.5-15.5); WBC 6.3 k/uL (3.8-10.6)
[2021-06-19] MEDS ORDERED: LORazepam 2 MG/ML INJ IV STA (10:27)
[2021-06-19] MEDS: SODIUM CHLORIDE 0.9% 1,000 ML IV SCH (13:14)
[2021-06-19] MEDS ORDERED: diphenhydrAMINE 50 MG/ML 1 ML VIAL ONE (18:59)
[2021-06-19] MEDS ORDERED: ROCURONIUM 10 MG/ML (5 ML VIAL) IV ONE (18:59)
[2021-06-19] MEDS ORDERED: fentaNYL (PF) 50 MCG/ML 2 ML AMP ONE (18:59)
[2021-06-19] MEDS ORDERED: PHENYLEPHRINE-0.9% NACL SYG 1,000 MCG/10 ML SYRINGE ONE (18:59)
[2021-06-19] MEDS ORDERED: ceFAZolin 1,000 MG VIAL ONE (18:59)
[2021-06-19] MEDS ORDERED: KETOROLAC 15 MG/ML 1 ML VIAL ONE (18:59)
[2021-06-19] MEDS ORDERED: NEOSTIGMINE 1 MG/ML 10 ML VIAL ONE (18:59)
[2021-06-19] MEDS ORDERED: SODIUM CHLORIDE 0.9% 100 ML BAG ONE (18:59)
[2021-06-19] MEDS ORDERED: SUCCINYLCHOLINE CHLORIDE 100 MG/5 ML SYR IV ONE (18:59)
[2021-06-19] MEDS ORDERED: DEXAMETHASONE SOD PHOSPHATE 10 MG/ML 1 ML VIAL ONE (18:59)
[2021-06-19] MEDS ORDERED: PROPOFOL 10 MG/ML 20 ML VIAL IV ONE (18:59)
[2021-06-19] MEDS ORDERED: GLYCOPYRROLATE 0.2 MG/ML 2 ML VIAL ONE (18:59)
[2021-06-19] MEDS ORDERED: MIDAZOLAM 2 MG/2 ML VIAL ONE (18:59)
[2021-06-19] MEDS ORDERED: LIDOCAINE 2% INJ 20 MG/ML (2 ML VIAL) ONE (18:59)
[2021-06-19] MEDS ORDERED: IV FLUID CONTINUATION 900 ML IV ONE (19:04)
[2021-06-19] MEDS ORDERED: BUPIVACAIN-EPI 0.25%-1:200,000 30 ML VIAL SQ ONE (19:47)
--- NOTE | 2021-06-19 20:15 | P.PN ---
Subjective Progress Note Date: 06/19/21 (delayed charting seen at 1030) Principal diagnosis: abdominal pain Patient is a 50-year-old with diabetes mellitus type 2, GERD, fibromyalgia, dyslipidemia, PCOS, cardiomyopathy, and multiple other conditions who presented to the ER with complaints of abdominal pain. In the ER she underwent an extensive evaluation. On arrival she was hypertensive with a blood pressure of 193/94. Initial laboratory analysis showed hemoglobin of 10.7, urinalysis with proteinuria, and positive fecal occult blood testing. Laboratory analysis is otherwise unremarkable. Initial KUB showed nonobstructive bowel gas pattern. She was admitted to general surgery and we are asked to consult for hypertensive management. Small bowel follow through did show obstruction. Patient seen and examined at bedside. Surgery planned for today. still with abdominal pain, feeling very nervous. No chest pain, no shortness of breath. General: ill appearing, no distress, appears at stated age, obese Derm: warm, dry, multiple tattoos Head: atraumatic, normocephalic, symmetric Eyes: EOMI, no lid lag, anicteric sclera Mouth: no lip lesion, mucus membranes moist Cardiovascular: S1S2 reg, no murmur, positive posterior tibial pulse bilateral, Lungs: CTA bilateral, no rhonchi, no rales , no accessory muscle use Abdominal: soft, +tender to palpation LUQ and LLQ, no guarding, no appreciable organomegaly Ext: no gross muscle atrophy, no edema, no contractures Neuro: CN II-XI grossly intact, no focal neuro deficits Psych: Alert, oriented, appropriate affect Assessment/plan: Intractable left upper quadrant pain possibly secondary to bowel obstruction versus + FOB -Management per general surgery. Plan for RODOLFO today. Outpatient colonoscopy. -Pain Control Severe Iron deficiency Anemia - IV iron X 3 - B12, folate- normal - follow CBC Diabetes mellitus type 2 - off meds since gastric bypass - A1C 7 - continue with diet control, need glucometer on discharge GERD - PPI Dyslipidemia - not on meds at baseline - outpatient follow-up Hypertension, accelerated - improved - continue current meds - follow blood pressures Cardiomyopathy with mitral valve prolapse - last echo 2018, mild LVH EF 60-65% - outpatient follow up VIt D def - start D 50,000 units once weekly for 12 weeks on discharge. Chronic: Factor V Leiden Polycystic ovarian syndrome Restless leg Neuropathy Obstructive sleep apnea Fatty liver disease COPD without exacerabtion Post traumatic stress disorder Iron deficiency anemia Depressive disorder Osteoarthritis Thank you for allowing us to participate in the care of this pleasant patient. Do not hesitate to contact us with questions. Someone can be reached from the [facility] hospitalist group all hours of the day at [phone] or via perfect serve. Objective - Vital Signs Vital signs: Vital Signs Temp 98.7 F 06/19/21 13:29 Pulse 56 L 06/19/21 13:29 Resp 16 06/19/21 13:29 BP 128/78 06/19/21 13:29 Pulse Ox 97 06/19/21 13:29 Intake & Output 06/19/21 06/19/21 06/20/21 06:59 18:59 06:59 Intake Total 750 Output Total 600 Balance 750 -600 Intake: Intake, IV Titration 750 Amount Sodium Chloride 0.9% 1, 750 000 ml @ 75 mls/hr IV . [id number] JERALD Rx#:[id number] Output: Urine 600 Other: Voiding Method Toilet # Voids 3 - Labs CBC & Chem 7: 06/19/21 06:13 06/19/21 06:13 Labs: Abnormal Lab Results - Last 24 Hours (Table) 06/19/21 06/19/21 Range/Units 06:13 06:13 RBC 3.52 L (3.80-5.40) m/uL Hgb 10.5 L (11.4-16.0) gm/dL Hct 33.0 L (34.0-46.0) % Calcium 8.2 L (8.4-10.2) mg/dL Microbiology - Last 24 Hours (Table) 06/16/21 09:15 Urine Culture - Final Urine,Voided Escherichia coli
[2021-06-19] MEDS ORDERED: LACTATED RINGERS 1,000 ML IV ONE (20:45)
--- NOTE | 2021-06-19 21:05 | P.OP ---
Date of Procedure: 06/19/21 Description of Procedure: SURGEON: SAM NORTH MD PREOPERATIVE DIAGNOSES: 1. Acute small bowel obstruction with left upper, lower abdominal pain, intractable 2. History of peritoneal adhesions 3. History of gastric bypass for obesity 4. Morbid obesity due to excess calories, BMI initial 60.7 to 48.8 5. Obstructive sleep apnea. 6. Fibromyalgia. 7. Gastroesophageal reflux disease. 8. Diabetes type 2 mellitus 9. Hypertensive heart disease 10. Dyslipidemia. 11. Bilateral lower extremity edema. 12. Polycystic ovarian syndrome. 13. Restless leg syndrome. 14. History of MRSA 15. Cardiomyopathy. 16. Anxiety. 17. Neuropathy 18. Asthma. 19. Panniculitis. 20. Factor V Leiden 21. Migraine 22. Obstructive sleep apnea 23. Fatty liver disease 24. Mitral valve prolapse 25. Angina 26. Chronic obstructive pulmonary disease 27. Claustrophobia 28. Posttraumatic stress disorder 29. Iron deficiency anemia 30. Depressive disorder 31. Osteoarthritis. POSTOPERATIVE DIAGNOSES: 1. Acute sigmoid volvulus with small bowel volvulus causing bowel obstruction 2. History of peritoneal adhesions 3. History of gastric bypass for obesity 4. Morbid obesity due to excess calories, BMI initial 60.7 to 48.8 5. Obstructive sleep apnea. 6. Fibromyalgia. 7. Gastroesophageal reflux disease. 8. Diabetes type 2 mellitus 9. Hypertensive heart disease 10. Dyslipidemia. 11. Bilateral lower extremity edema. 12. Polycystic ovarian syndrome. 13. Restless leg syndrome. 14. History of MRSA 15. Cardiomyopathy. 16. Anxiety. 17. Neuropathy 18. Asthma. 19. Panniculitis. 20. Factor V Leiden 21. Migraine 22. Obstructive sleep apnea 23. Fatty liver disease 24. Mitral valve prolapse 25. Angina 26. Chronic obstructive pulmonary disease 27. Claustrophobia 28. Posttraumatic stress disorder 29. Iron deficiency anemia 30. Depressive disorder 31. Osteoarthritis. OPERATION: 1. Robotic-assisted da Rocio Xi diagnostic laparoscopy with reduction of small bowel and large bowel volvulus ESTIMATED BLOOD LOSS: 5 mL. SPECIMENS REMOVED: None. COMPLICATIONS: None. OPERATIVE FINDINGS: 1. No ventral hernias identified. 2. Sigmoid bowel dilation with acute sigmoid volvulus 3. Long mesentery of the small bowel with small bowel volvulus reduced 4. Complete scarring of Harvey defect and jejunojejunostomy mesenteric defect 5. Reconstruction of jejunojejunostomy and common channel identified INDICATIONS: The patient is a 50-year-old female who presents with intractable left upper quadrant and left lower quadrant abdominal pain including bowel obstruction.. Surgical intervention with diagnostic laparoscopy, lysis of adhesions were described. Informed consent was obtained. Robotic assisted laparoscopic approach was described. Benefits and risks of the procedure including but not limited to bleeding, infection, injury to the small bowel was described. Informed consent was obtained. DESCRIPTION OF PROCEDURE: Patient was brought to the operating room, placed in supine position. After general induction, the abdomen had been prepped and draped in standard sterile fashion. The robotic da Rocio XI system was primed. After a timeout protocol was performed, the patient had been prepped and draped in standard sterile fashion. The robot was docked along the right lateral abdomen. The patient was repositioned in with right side up. Please note prior to docking of the robot; however, a 5 mm 0 degrees laparoscopic trocar entry was performed along the left upper quadrant. The abdomen was insufflated to 15 mmHg pressure which she tolerated well. Diagnostic laparoscopy was performed. Next, three 8 mm robotic ports were placed along the right lateral abdominal wall. The camera 8-mm port was maintained along mid-lateral abdomen. Please note that the ports were placed at least 10 to 15 cm away from the target anatomy. Instruments including graspers and vessel sealer were interchanged by the graduate assistant. I had sat at the console. No evidence of incisional hernia was identified. The small bowel from the danielle limb to distal ileum was inspected. The small bowel was investigated from the terminal ileum to the ligament of Treitz with finding of redundant mesentery with active small bowel volvulus also intertwined along active sigmoid volvulus. This sigmoid colon was acutely dilated. The mesentery small bowel volvulus were reduced. No herniation of bowel was found along the Harvey defect or jejunojejunostomy mesenteric defect which were completely scarred. Moderate gaseous distention of sigmoid colon was identified with an active sigmoid volvulus similarly reduced secondary to highly redundant colon. The terminal ileum and cecum was unremarkable. Adhesion along the left upper quadrant was tethering to the retroperitoneum involving the proximal descending colon which was lysed. The small bowel was viable.The robot was undocked. All pneumoperitoneum instruments were evacuated from the abdominal cavity. The incisions were reapproximated using 4-0 Monocryl in an interrupted subcuticular fashion. Please note along the trocar sites, local anesthetic was placed as a field block prior to insertion of all instruments. Exofin was applied to the skin. At the end of the procedure needle, sponge, and instrument count had been verified correct by the surgical technologist. The patient was transferred to postanesthesia care unit in stable condition.
[2021-06-20] MEDS: PREGABALIN 100 MG CAP PO SCH ×3 (00:10→21:14)
[2021-06-20] MEDS: CYCLOBENZAPRINE 10 MG TAB PO SCH ×3 (00:10→21:14)
[2021-06-20] MEDS: AMITRIPTYLINE HCL 25 MG TAB PO SCH ×2 (00:10→21:14)
[2021-06-20] MEDS: ACETAMINOPHEN IV (For NPO) 1,000 MG in EMPTY BAG 1 BAG IVPB SCH ×4 (00:56→17:35)
[2021-06-20] MEDS: SODIUM CHLORIDE 0.9% 1,000 ML IV SCH ×2 (05:06→17:36)
[2021-06-20] MEDS: TOPIRAMATE 100 MG TAB PO SCH (08:25)
[2021-06-20] MEDS: lisinopriL 10 MG TAB PO SCH (08:25)
[2021-06-20] MEDS: METOPROLOL SUCCINATE (ER) 50 MG TAB.ER.24H PO SCH (08:25)
[2021-06-20] MEDS: PANTOPRAZOLE 40 MG/10 ML VIAL IV SCH (08:26)
[2021-06-20] MEDS: SODIUM FERRIC GLUCONAT-SUCROSE 125 MG in SODIUM CHLORIDE 0.9% 100 ML IVPB SCH (08:26)
[2021-06-20] MEDS: HYDROmorphone 1 MG/ML 1 ML SYRINGE IVP PRN ×4 (08:42→22:10)
[2021-06-20] MEDS ORDERED: POLYETHYLENE GLYCOL LYTES SOLN 4,000 ML SOLN.RECON PO ONE (08:57)
[2021-06-20 11:07] LABS: HCT 34.5 % (34.0-46.0); MCH 29.7 pg (25.0-35.0); Mean Platelet Volume 8.2; Platelet Count 189 k/uL (150-450); RBC 3.71 m/uL (3.80-5.40); WBC 8.4 k/uL (3.8-10.6)
[2021-06-20 11:19] LABS: ALT 17 U/L (4-34); AST 38 U/L (14-36); African American GFR (CKD) >90 (>60 ml/min/1.73 sqM); Albumin 2.9 g/dL (3.5-5.0); Albumin/Globulin Ratio 1.1; Alkaline Phosphatase 85 U/L (38-126); Anion Gap 4 mmol/L; Blood Urea Nitrogen 8 mg/dL (7-17); Calcium 8.2 mg/dL (8.4-10.2); Carbon Dioxide 25 mmol/L (22-30); Chloride 106 mmol/L (98-107); Globulin 2.6 g/dL; Glucose 173 mg/dL (74-99); Magnesium 1.9 mg/dL (1.6-2.3); Non-African American GFR(CKD) >90 (>60 ml/min/1.73 sqM); Potassium 4.1 mmol/L (3.5-5.1); Sodium 135 mmol/L (137-145); Total Bilirubin 0.6 mg/dL (0.2-1.3); Total Protein 5.5 g/dL (6.3-8.2)
[2021-06-20] MEDS: ENOXAPARIN 30 MG/0.3 ML SYRINGE SQ SCH (11:52)
[2021-06-20 13:08] VITALS: BMI 48.8
--- NOTE | 2021-06-20 14:34 | P.PN ---
Subjective Progress Note Date: 06/20/21 CHIEF COMPLAINT: Bowel obstruction HISTORY OF PRESENT ILLNESS: Patient is postop day #1 status post Robotic- assisted da Rocio Xi diagnostic laparoscopy with reduction of small bowel and large bowel volvulus. Patient denies any flatus. She is lying in bed comfortably. Afebrile. WBC is 8.4 hemoglobin 11.0-189 sodium 135 potassium 4.1 creatinine 0.65 PHYSICAL EXAM: VITAL SIGNS: Reviewed GENERAL: Well-developed in no acute distress. HEENT: No sclera icterus. Extraocular movements grossly intact. Moist buccal mucosa. Head is atraumatic, normocephalic. Hears conversational speech. No nasal drai nage. NECK: Supple without lymphadenopathy. CHEST: Non-labored respirations and equal bilateral excursions. CARDIOVASCULAR: Palpable 2+ radial pulses. ABDOMEN: Protuberant MUSCULOSKELETAL: No clubbing or cyanosis. NEUROLOGIC: No focal or lateralizing signs. Cranial nerves II through XII herson ssly intact. PSYCH: Appropriate affect. Alert and oriented to person, place and time. SKIN: Well perfused. Good skin turgor. ASSESSMENT: 1. Acute sigmoid volvulus with small bowel volvulus causing bowel obstruction 2. History of peritoneal adhesions 3. History of gastric bypass for obesity 4. Morbid obesity due to excess calories, BMI initial 60.7 to 48.8 5. Obstructive sleep apnea. 6. Fibromyalgia. 7. Gastroesophageal reflux disease. 8. Diabetes type 2 mellitus 9. Hypertensive heart disease 10. Dyslipidemia. 11. Bilateral lower extremity edema. 12. Polycystic ovarian syndrome. 13. Restless leg syndrome. 14. History of MRSA 15. Cardiomyopathy. 16. Anxiety. 17. Neuropathy 18. Asthma. 19. Panniculitis. 20. Factor V Leiden 21. Migraine 22. Obstructive sleep apnea 23. Fatty liver disease 24. Mitral valve prolapse 25. Angina 26. Chronic obstructive pulmonary disease 27. Claustrophobia 28. Posttraumatic stress disorder 29. Iron deficiency anemia 30. Depressive disorder 31. Osteoarthritis. PLAN: -Patient scheduled for EGD and colonoscopy tomorrow, 06/21/[address] Dumont -Start Nulytely prep today -Clear liquid diet today -Nothing by mouth after midnight Physician Ice Crusher note has been reviewed by physician. Signing provider agrees with the documented findings, assessment, and plan of care. CHIEF COMPLAINT: Intractable abdominal pain HISTORY OF PRESENT ILLNESS: Jeannie Klein is a 50-year-old female admitted for abdominal pain and bowel obstruction. She is status post diagnostic laparoscopy with findings of new sigmoid volvulus reduced. Today, no bowel movements or flatus. She still reports abdominal pain. She is tolertating liquids. REVIEW OF SYSTEMS: No bowel movements. No fevers or chills. No new chest pain. No productive sputum PHYSICAL EXAM: VITAL SIGNS: Reviewed CONSTITUTIONAL: Well developed and in no acute distress. EYES: Conjuctivae without sclera icterus. Extraocular movements grossly intact. HEAD, EARS, NOSE, THROAT: Moist buccal mucosa. Head is atraumatic, normocephalic. Hears conversational speech. No nasal drainage. RESPIRATORY: Non-labored respirations and equal bilateral excursions. CARDIOVASCULAR: Palpable 2+ radial pulses. ABDOMEN: Protuberant. Incisions are clean, dry and intact MUSCULOSKELETAL: No gross deformity of the lower extremities noted. No club orin. No cyanosis. SKIN: Good skin turgor. Well perfused. NEUROLOGIC: Cranial nerves II through XII grossly intact. No focal or lateralizing signs. PSYCH: Appropriate affect. Alert and oriented to person, place and time. LABS: Reviewed. WBC normal at 8.4. Hgb stable up from 10.5 to 11.0 ASSESSMENT: 1. Small bowel obstruction on admission 2. Large bowel obstruction due to sigmoid volvulus 3. Epigastric abdominal with history of gastric ulcers 4. Anemia PLAN: 1. She has new findings of large bowel obstruction due to volvulus with colon distention. Recommend lower endoscopy for decompression. 2. Recommend upper endoscopy for epigastric pain, anemia and history of gastric ulcers Objective - Vital Signs Vital signs: Vital Signs Temp 97.6 F 06/20/21 08:00 Pulse 50 L 06/20/21 08:40 Resp 18 06/20/21 08:40 BP 109/72 06/20/21 08:00 Pulse Ox 97 06/20/21 08:00 Intake & Output 06/19/21 06/20/21 06/20/21 18:59 06:59 18:59 Intake Total 1400 Output Total 600 430 Balance -600 970 Weight 113.398 kg Intake: IV 1400 Output: Urine 600 425 Estimated Blood Loss 5 Other: Voiding Method Toilet Toilet - Labs CBC & Chem 7: 06/20/21 10:47 06/20/21 10:47 Labs: Abnormal Lab Results - Last 24 Hours (Table) 06/20/21 06/20/21 Range/Units 10:47 10:47 RBC 3.71 L (3.80-5.40) m/uL Hgb 11.0 L (11.4-16.0) gm/dL Sodium 135 L (137-145) mmol/L Glucose 173 H (74-99) mg/dL Calcium 8.2 L (8.4-10.2) mg/dL AST 38 H (14-36) U/L Total Protein 5.5 L (6.3-8.2) g/dL Albumin 2.9 L (3.5-5.0) g/dL
--- NOTE | 2021-06-20 18:45 | P.PN ---
Subjective Progress Note Date: 06/20/21 (delayed charting seen at 0945) Principal diagnosis: abdominal pain Patient is a 50-year-old with diabetes mellitus type 2, GERD, fibromyalgia, dyslipidemia, PCOS, cardiomyopathy, and multiple other conditions who presented to the ER with complaints of abdominal pain. In the ER she underwent an extensive evaluation. On arrival she was hypertensive with a blood pressure of 193/94. Initial laboratory analysis showed hemoglobin of 10.7, urinalysis with proteinuria, and positive fecal occult blood testing. Laboratory analysis is otherwise unremarkable. Initial KUB showed nonobstructive bowel gas pattern. She was admitted to general surgery and we are asked to consult for hypertensive management. Small bowel follow through did show obstruction. Patient seen and examined at bedside. Still with pain and nausea, complaining of RLS. General: ill appearing, no distress, appears at stated age, obese Derm: warm, dry, multiple tattoos Head: atraumatic, normocephalic, symmetric Eyes: EOMI, no lid lag, anicteric sclera Mouth: no lip lesion, mucus membranes moist Cardiovascular: S1S2 reg, no murmur, positive posterior tibial pulse bilateral, Lungs: CTA bilateral, no rhonchi, no rales , no accessory muscle use Abdominal: soft, +tender to palpation diffusely, no guarding, no appreciable organomegaly Ext: no gross muscle atrophy, no edema, no contractures Neuro: CN II-XI grossly intact, no focal neuro deficits Psych: Alert, oriented, appropriate affect Assessment/plan: Sigmoid and Small Bowel Volvulous resulting the bowel obstruction + FOB -Management per general surgery. s/p ex lap 06/19, plan for EGD and colonoscopy 06/21. -Pain Control Severe Iron deficiency Anemia - IV iron X 3 - B12, folate- normal - follow CBC Diabetes mellitus type 2 - off meds since gastric bypass - A1C 7 - continue with diet control,RX for glucometer on discharge has been completed GERD - PPI Dyslipidemia - not on meds at baseline - outpatient follow-up Hypertension, accelerated - improved - continue current meds - follow blood pressures Cardiomyopathy with mitral valve prolapse - last echo 2018, mild LVH EF 60-65% - outpatient follow up VIt D def - start D 50,000 units once weekly for 12 weeks on discharge. Chronic: Factor V Leiden Polycystic ovarian syndrome Restless leg Neuropathy Obstructive sleep apnea Fatty liver disease COPD without exacerabtion Post traumatic stress disorder Iron deficiency anemia Depressive disorder Osteoarthritis Thank you for allowing us to participate in the care of this pleasant patient. Do not hesitate to contact us with questions. Someone can be reached from the [facility] hospitalist group all hours of the day at [phone] or via perfect serve. Objective - Vital Signs Vital signs: Vital Signs Temp 98.5 F 06/20/21 14:00 Pulse 59 L 06/20/21 14:00 Resp 18 06/20/21 14:00 BP 143/76 06/20/21 14:00 Pulse Ox 97 06/20/21 14:00 Intake & Output 06/19/21 06/20/21 06/20/21 18:59 06:59 18:59 Intake Total 1400 Output Total 600 430 Balance -600 970 Weight 113.398 kg Intake: IV 1400 Output: Urine 600 425 Estimated Blood Loss 5 Other: Voiding Method Toilet Toilet - Labs CBC & Chem 7: 06/20/21 10:47 06/20/21 10:47 Labs: Abnormal Lab Results - Last 24 Hours (Table) 06/20/21 06/20/21 Range/Units 10:47 10:47 RBC 3.71 L (3.80-5.40) m/uL Hgb 11.0 L (11.4-16.0) gm/dL Sodium 135 L (137-145) mmol/L Glucose 173 H (74-99) mg/dL Calcium 8.2 L (8.4-10.2) mg/dL AST 38 H (14-36) U/L Total Protein 5.5 L (6.3-8.2) g/dL Albumin 2.9 L (3.5-5.0) g/dL
[2021-06-20] MEDS: ONDANSETRON 4 MG/2 ML VIAL IVP PRN (22:09)
[2021-06-21] MEDS: HYDROmorphone 1 MG/ML 1 ML SYRINGE IVP PRN ×2 (04:11→22:14)
[2021-06-21] MEDS: METOCLOPRAMIDE 5 MG/ML 2 ML VIAL IVP PRN (04:16)
[2021-06-21] MEDS: SODIUM CHLORIDE 0.9% 1,000 ML IV SCH ×2 (06:09→19:43)
[2021-06-21] MEDS: ENOXAPARIN 30 MG/0.3 ML SYRINGE SQ SCH (07:37)
[2021-06-21] MEDS: CYCLOBENZAPRINE 10 MG TAB PO SCH ×2 (07:37→20:40)
[2021-06-21] MEDS: PREGABALIN 100 MG CAP PO SCH ×2 (07:38→20:40)
[2021-06-21] MEDS: TOPIRAMATE 100 MG TAB PO SCH (07:38)
[2021-06-21] MEDS: SODIUM FERRIC GLUCONAT-SUCROSE 125 MG in SODIUM CHLORIDE 0.9% 100 ML IVPB SCH (08:07)
[2021-06-21] MEDS: PANTOPRAZOLE 40 MG/10 ML VIAL IV SCH (08:07)
[2021-06-21 08:57] LABS: HCT 35.5 % (34.0-46.0); HGB 11.1 gm/dL (11.4-16.0); Hypochromasia Slight; MCH 29.7 pg (25.0-35.0); MCHC 31.2 g/dL (31.0-37.0); MCV 95.2 fL (80.0-100.0); Platelet Count 247 k/uL (150-450); RBC 3.73 m/uL (3.80-5.40); RDW 14.9 % (11.5-15.5); WBC 9.1 k/uL (3.8-10.6)
[2021-06-21 09:35] LABS: ALT 17 U/L (4-34); AST 43 U/L (14-36); African American GFR (CKD) 78 (>60 ml/min/1.73 sqM); Albumin 3.2 g/dL (3.5-5.0); Albumin/Globulin Ratio 1.1; Alkaline Phosphatase 79 U/L (38-126); Anion Gap 8 mmol/L; Blood Urea Nitrogen 8 mg/dL (7-17); Calcium 8.4 mg/dL (8.4-10.2); Carbon Dioxide 19 mmol/L (22-30); Chloride 109 mmol/L (98-107); Globulin 2.9 g/dL; Glucose 96 mg/dL (74-99); Magnesium 1.9 mg/dL (1.6-2.3); Non-African American GFR(CKD) 67 (>60 ml/min/1.73 sqM); Sodium 136 mmol/L (137-145); Total Bilirubin 0.8 mg/dL (0.2-1.3); Total Protein 6.1 g/dL (6.3-8.2)
[2021-06-21 09:38] LABS: Potassium 4.1 mmol/L (3.5-5.1)
[2021-06-21] MEDS: lisinopriL 10 MG TAB PO SCH (11:15)
[2021-06-21] MEDS: METOPROLOL SUCCINATE (ER) 50 MG TAB.ER.24H PO SCH (11:16)
[2021-06-21] MEDS ORDERED: IV FLUID CONTINUATION 700 ML IV ONE (12:10)
[2021-06-21] MEDS ORDERED: LIDOCAINE 2% INJ 20 MG/ML (2 ML VIAL) ONE (12:14)
[2021-06-21] MEDS ORDERED: PROPOFOL 10 MG/ML 20 ML VIAL IV ONE (12:14)
--- NOTE | 2021-06-21 12:51 | P.PCN ---
Date of Procedure: 06/21/21 Description of Procedure: PREOPERATIVE DIAGNOSIS: Bowel obstruction Sigmoid volvulus POSTOPERATIVE DIAGNOSIS: Bowel obstruction Sigmoid volvulus OPERATION: Colonoscopy with decompression for sigmoid volvulus SURGEON: Latricia Dumont MD. ANESTHESIA: MAC. INDICATIONS: The patient is a 50-year-old female who presented with bowel obstruction. Findings including sigmoid volvulus. Benefits and risks were described and informed consent was obtained. DESCRIPTION OF PROCEDURE: The patient had Nulytely prep. The patient had been brought into the operating room and laid in the left lateral decubitus position. After adequate intravenous sedation, the rectum was examined with 2% lidocaine jelly. No external hemorrhoids were encountered. The rectal tone was within normal limits. No lesions were palpated in the rectal vault. An Olympus colonoscope was advanced into the sigmoid colon which is moderately distended without ischemia. Moderate colonic air was expelled and aspirated as sigmoid volvulus was reduced.. The colon was highly redundant. The prep was poor with liquid stool. Moderate normal saline irrigation was used. No scattered diverticulosis was encountered. No colonic polyps were found distal to the transverse colon. Retroflexion of the scope demonstrated grade 2 internal hemorrhoids without active bleeding or inflammation. The colon was desufflated. The patient had tolerated the procedure well. Withdrawal time was over 6 minutes. FINDINGS: Aronchick preparation quality scale 4 (1-5) Internal hemorrhoids, grade 1 No external prolapsed hemorrhoids. No arteriovenous malformations. No adenomatous polyps. No focal colitis. Decompression of sigmoid volvulus RECOMMENDATIONS: Lower endoscopy as needed Plan - Discharge Summary Discharge Rx Participant: No New Discharge Prescriptions: No Action Cyclobenzaprine [Flexeril] 10 mg PO BID Nitroglycerin Sl Tabs [Nitrostat] 0.4 mg PO Q5M PRN PRN Reason: Chest Pain Metoprolol Succinate [Toprol XL] 50 mg PO DAILY Metoclopramide HCl [Reglan] 5 mg PO HS Ferrous Sulfate [Feosol] 325 mg PO DAILY Zinc 50 mg PO DAILY rOPINIRole HCL [Requip] 2 mg PO BID Furosemide [Lasix] 20 mg PO DAILY Lisinopril [Zestril] 10 mg PO DAILY Topiramate [Topamax] 100 mg PO DAILY Pregabalin [Lyrica] 200 mg PO BID Rosuvastatin Calcium [Crestor] 40 mg PO HS SUMAtriptan SUCCINATE [Imitrex] 100 mg PO BID PRN PRN Reason: Migraine Headache Rizatriptan Benzoate [Rizatriptan] 10 mg PO BID PRN PRN Reason: Migraine Headache Magnesium 250 mg PO HS Famotidine 20 mg PO BID Calcium Carb-Vit D 250Mg-125Un [Oscal 250+D 3.125 Mcg (125 Iu)] 1 tab PO DAILY Benzonatate [Tessalon Perles] 100 mg PO TID PRN PRN Reason: Cough Amitriptyline HCl [Elavil] 75 mg PO HS Discharge Medication List Cyclobenzaprine [Flexeril] 10 mg PO BID 08/05/16 [History] Ferrous Sulfate [Feosol] 325 mg PO DAILY 01/22/18 [History] Metoclopramide HCl [Reglan] 5 mg PO HS 01/22/18 [History] Metoprolol Succinate [Toprol XL] 50 mg PO DAILY 01/22/18 [History] Nitroglycerin Sl Tabs [Nitrostat] 0.4 mg PO Q5M PRN 01/22/18 [History] Zinc 50 mg PO DAILY 03/04/18 [History] rOPINIRole HCL [Requip] 2 mg PO BID 03/21/18 [History] Furosemide [Lasix] 20 mg PO DAILY 05/29/18 [History] Lisinopril [Zestril] 10 mg PO DAILY 09/03/18 [History] Amitriptyline HCl [Elavil] 75 mg PO HS 06/16/21 [History] Benzonatate [Tessalon Perles] 100 mg PO TID PRN 06/16/21 [History] Calcium Carb-Vit D 250Mg-125Un [Oscal 250+D 3.125 Mcg (125 Iu)] 1 tab PO DAILY 06/16/21 [History] Famotidine 20 mg PO BID 06/16/21 [History] Magnesium 250 mg PO HS 06/16/21 [History] Pregabalin [Lyrica] 200 mg PO BID 06/16/21 [History] Rizatriptan Benzoate [Rizatriptan] 10 mg PO BID PRN 06/16/21 [History] Rosuvastatin Calcium [Crestor] 40 mg PO HS 06/16/21 [History] SUMAtriptan SUCCINATE [Imitrex] 100 mg PO BID PRN 06/16/21 [History] Topiramate [Topamax] 100 mg PO DAILY 06/16/21 [History] Follow up Appointment(s)/Referral(s): None,Stated [Primary Care Provider] - 1-2 days Activity/Diet/Wound Care/Special Instructions: Discharging RN - Glucometer is at [facility]. Ma ke sure she gets it prior to discharge. Total cost is $40.
--- NOTE | 2021-06-21 12:53 | P.PCN ---
Date of Procedure: 06/21/21 Description of Procedure: PREOPERATIVE DIAGNOSES: 1. Epigastric abdominal pain. 2. Nausea and vomiting. 3. History of gastric bypass. 4. History of gastric ulcers. POSTOPERATIVE DIAGNOSES: 1. Epigastric abdominal pain. 2. Nausea and vomiting. 3. History of gastric bypass. 4. History of gastric ulcers. PROCEDURE PERFORMED: Esophagogastrojejunoscopy. SURGEON: Latricia Dumont MD ANESTHESIA: MAC. INDICATIONS: The patient is a 50-year-old female with prior history of Barb-en-Y gastric bypass. She presented with intractable abdominal pain including epigastric pain and history of ulcers. With his history of Barb-en-Y gastric bypass, upper endoscopy was offered for further evaluation and management. DESCRIPTION: Patient was brought to the endoscopy suite and laid in the left lateral decubitus position. After adequate IV sedation, a bite block was placed. An Olympus gastroscope was passed along the posterior oropharynx down to the distal esophagus where the squamocolumnar junction was found at approximately 40 cm from the incisors. His anastomosis was found at 45 cm, consistent with approximately 5 cm gastric pouch. The scope was advanced 60 cm from the incisors. No evidence of foreign body was found. No evidence of active gastrojejunal ulcerations were encountered. The GI tract was desufflated. The patient tolerated the procedure well. FINDINGS: 1. No acute gastrojejunal ulceration. 2. No foreign body found along the anastomosis. 3. Gastric pouch, 5 cm PLAN: 1. Recommend upper endoscopy as needed.
--- NOTE | 2021-06-21 17:12 | P.PN ---
Subjective Progress Note Date: 06/21/21 (delayed charting seen at approx 0845) Principal diagnosis: abdominal pain Patient is a 50-year-old with diabetes mellitus type 2, GERD, fibromyalgia, dyslipidemia, PCOS, cardiomyopathy, and multiple other conditions who presented to the ER with complaints of abdominal pain. In the ER she underwent an extensive evaluation. On arrival she was hypertensive with a blood pressure of 193/94. Initial laboratory analysis showed hemoglobin of 10.7, urinalysis with proteinuria, and positive fecal occult blood testing. Laboratory analysis is otherwise unremarkable. Initial KUB showed nonobstructive bowel gas pattern. She was admitted to general surgery and we are asked to consult for hypertensive management. Small bowel follow through did show obstruction. She underwent ex lap on 06/19 which showed sigmoid and small bowel volvulous. She then underwent EGD and colonsocopy for decompression of volvulous. Patient seen and examined at bedside. Having pain, nausea, vomiting all which are about the same since yesterday. General: ill appearing, no distress, appears at stated age, obese Derm: warm, dry, multiple tattoos Head: atraumatic, normocephalic, symmetric Eyes: EOMI, no lid lag, anicteric sclera Mouth: no lip lesion, mucus membranes moist Cardiovascular: S1S2 reg, no murmur, positive posterior tibial pulse bilateral, Lungs: CTA bilateral, no rhonchi, no rales , no accessory muscle use Abdominal: soft, +tender to palpation diffusely, no guarding, no appreciable organomegaly Ext: no gross muscle atrophy, no edema, no contractures Neuro: CN II-XI grossly intact, no focal neuro deficits Psych: Alert, oriented, appropriate affect Assessment/plan: Sigmoid and Small Bowel Volvulous resulting the bowel obstruction + FOB -Management per general surgery. s/p ex lap 06/19, plan for EGD and colonoscopy 06/21. -Pain Control Severe Iron deficiency Anemia - IV iron X 3 completed - will nee outpatient follow-up - B12, folate- normal - follow CBC Diabetes mellitus type 2 - off meds since gastric bypass - A1C 7 - continue with diet control,RX for glucometer on discharge has been completed GERD - PPI Dyslipidemia - not on meds at baseline - outpatient follow-up Hypertension, accelerated - improved - continue current meds - follow blood pressures Cardiomyopathy with mitral valve prolapse - last echo 2018, mild LVH EF 60-65% - outpatient follow up VIt D def - start D 50,000 units once weekly for 12 weeks on discharge. Chronic: Factor V Leiden Polycystic ovarian syndrome Restless leg Neuropathy Obstructive sleep apnea Fatty liver disease COPD without exacerabtion Post traumatic stress disorder Iron deficiency anemia Depressive disorder Osteoarthritis Will need PCP referral for Vidalia isha on discharge. Thank you for allowing us to participate in the care of this pleasant patient. Do not hesitate to contact us with questions. Someone can be reached from the [facility] [place] hospitalist group all hours of the day at [phone] or via [employer]. Objective - Vital Signs Vital signs: Vital Signs Temp 98.2 F 06/21/21 14:00 Pulse 67 06/21/21 14:00 Resp 18 06/21/21 14:00 BP 95/58 06/21/21 14:00 Pulse Ox 95 06/21/21 14:00 Intake & Output 06/20/21 06/21/21 06/21/21 18:59 06:59 18:59 Intake Total 2100 600 Balance 2100 600 Weight 113.398 kg Intake: IV 600 Oral 2100 Other: Voiding Method Toilet Toilet Toilet # Voids 3 3 - Labs CBC & Chem 7: 06/21/21 07:40 06/21/21 07:40 Labs: Abnormal Lab Results - Last 24 Hours (Table) 06/21/21 06/21/21 Range/Units 07:40 07:40 RBC 3.73 L (3.80-5.40) m/uL Hgb 11.1 L (11.4-16.0) gm/dL Sodium 136 L (137-145) mmol/L Chloride 109 H (98-107) mmol/L Carbon Dioxide 19 L (22-30) mmol/L AST 43 H (14-36) U/L Total Protein 6.1 L (6.3-8.2) g/dL Albumin 3.2 L (3.5-5.0) g/dL
[2021-06-21 19:42] VITALS: RESP 16
[2021-06-21] MEDS: AMITRIPTYLINE HCL 25 MG TAB PO SCH (20:40)
[2021-06-22 06:37] LABS: HCT 33.5 % (34.0-46.0); HGB 10.6 gm/dL (11.4-16.0); MCH 29.2 pg (25.0-35.0); MCHC 31.6 g/dL (31.0-37.0); MCV 92.4 fL (80.0-100.0); Platelet Count 223 k/uL (150-450); RBC 3.63 m/uL (3.80-5.40); RDW 14.5 % (11.5-15.5)
[2021-06-22 06:55] LABS: African American GFR (CKD) >90 (>60 ml/min/1.73 sqM); Anion Gap 4 mmol/L; Blood Urea Nitrogen 6 mg/dL (7-17); Calcium 8.2 mg/dL (8.4-10.2); Carbon Dioxide 24 mmol/L (22-30); Chloride 111 mmol/L (98-107); Glucose 105 mg/dL (74-99); Non-African American GFR(CKD) >90 (>60 ml/min/1.73 sqM); Potassium 3.6 mmol/L (3.5-5.1); Sodium 139 mmol/L (137-145)
[2021-06-22] MEDS: METOPROLOL SUCCINATE (ER) 50 MG TAB.ER.24H PO SCH (08:13)
[2021-06-22] MEDS: ENOXAPARIN 30 MG/0.3 ML SYRINGE SQ SCH (08:13)
[2021-06-22] MEDS: lisinopriL 10 MG TAB PO SCH (08:14)
[2021-06-22] MEDS: TOPIRAMATE 100 MG TAB PO SCH (08:14)
[2021-06-22] MEDS: CYCLOBENZAPRINE 10 MG TAB PO SCH (08:14)
[2021-06-22] MEDS: PREGABALIN 100 MG CAP PO SCH (08:14)
[2021-06-22] MEDS: PANTOPRAZOLE 40 MG/10 ML VIAL IV SCH (08:37)
[2021-06-22] MEDS: SODIUM FERRIC GLUCONAT-SUCROSE 125 MG in SODIUM CHLORIDE 0.9% 100 ML IVPB SCH (08:43)
[2021-06-22] MEDS: SODIUM CHLORIDE 0.9% 1,000 ML IV SCH (08:43)
--- NOTE | 2021-06-22 12:32 | P.PN ---
Subjective Progress Note Date: 06/22/21 Hospital course: Patient is a 50-year-old with a past medical history of diabetes mellitus type 2, GERD, fibromyalgia, dyslipidemia, PCOS, cardiomyopathy, and multiple other conditions. She presented to the emergency department on 06/16/21 with a chief complaint of abdominal pain. In the ER she underwent an extensive evaluation. On arrival she was hypertensive with a blood pressure of 193/94. Initial laboratory analysis showed hemoglobin of 10.7, urinalysis with proteinuria, and positive fecal occult blood testing. Laboratory analysis is otherwise unremarkable. Initial KUB showed nonobstructive bowel gas pattern. She was admitted to general surgery and we were consulted for hypertensive management. Small bowel follow through did show obstruction. She underwent exploratory lap on 06/19 which showed sigmoid and small bowel volvulous. She then underwent EGD and colonsocopy for decompression of volvulous. Physical examination: Patient seen and examined at bedside. She was sitting up in the chair and reports feeling much better today. Patient reports she had a bowel movement last night and is tolerating oral intake well. Patient denies any episodes of nausea or vomiting. She reports mild incisional tenderness otherwise denies having any complaints including dizziness, lightheadedness, chest pain, palpitations, or shortness of breath. Patient is medically cleared for discharge and general surgery notified. Prescription sent for glucometer and weekly vitamin D prescription. It is recommended that patient follow-up with Dr. Luis for long-term monitoring/management/treatment of her severe iron deficiency anemia. Patient will also need to establish care with a primary care provider, referring her to Dr. Colt Jimenez primary care provider in patient's area of [facility]. General: ill appearing, no distress, appears at stated age, obese Derm: warm, dry, multiple tattoos Head: atraumatic, normocephalic, symmetric Eyes: EOMI, no lid lag, anicteric sclera Mouth: no lip lesion, mucus membranes moist Cardiovascular: S1S2 reg, no murmur, positive posterior tibial pulse bilateral, Lungs: CTA bilateral, no rhonchi, no rales , no accessory muscle use Abdominal: soft, +tender to palpation diffusely, no guarding, no appreciable organomegaly Ext: no gross muscle atrophy, no edema, no contractures Neuro: CN II-XI grossly intact, no focal neuro deficits Psych: Alert, oriented, appropriate affect Assessment/plan: Sigmoid and Small Bowel Volvulous resulting the bowel obstruction + FOB -Management per general surgery. s/p ex lap 06/19 -EGD and colonoscopy 06/21. -Symptomatic care and pain management. -DVT prophylaxis with Lovenox Severe Iron deficiency Anemia - IV iron X 3 completed, continue with oral ferrous sulfate and follow up with hematology/oncology for management of iron deficiency anemia. - will nee outpatient follow-up - B12, folate- normal - follow CBC Diabetes mellitus type 2 - off meds since gastric bypass - A1C 7 - continue with diet control, RX for glucometer on discharge has been completed GERD - PPI Dyslipidemia - not on meds at baseline - outpatient follow-up Hypertension, accelerated - improved - continue current meds - follow blood pressures Cardiomyopathy with mitral valve prolapse - last echo 2018, mild LVH EF 60-65% - outpatient follow up VIt D def - start D 50,000 units once weekly for 12 weeks on discharge. Prescription sent to [facility] Chronic: Factor V Leiden Polycystic ovarian syndrome Restless leg Neuropathy Obstructive sleep apnea Fatty liver disease COPD without exacerabtion Post traumatic stress disorder Iron deficiency anemia Depressive disorder Osteoarthritis Referring to Dr. Colt Jimenez primary care provider in patient's area of [facility]. Thank you for allowing us to participate in the care of this pleasant patient. Do not hesitate to contact us with questions. Someone can be reached from the [facility] hospitalist group all hours of the day at [phone] or via [employer]. Objective - Vital Signs Vital signs: Vital Signs Temp 98.2 F 06/22/21 07:44 Pulse 69 06/22/21 07:44 Resp 16 06/22/21 02:32 BP 127/88 06/22/21 07:44 Pulse Ox 93 L 06/22/21 07:44 Intake & Output 06/21/21 06/22/21 06/22/21 18:59 06:59 18:59 Intake Total 1450 900 Balance 1450 900 Intake: IV 600 Intake, IV Titration 850 900 Amount Sodium Chloride 0.9% 1, 750 900 000 ml @ 75 mls/hr IV . [id number] [facility] Rx#:[id number] Sodium Ferric Gluconat- 100 Sucrose 125 mg In Sodium Chloride 0.9% 100 ml @ 100 mls/hr IVPB DAILY [facility] Rx#:[id number] Other: Voiding Method Toilet # Voids 1 - Labs CBC & Chem 7: 06/22/21 06:18 06/22/21 06:18 Labs: Abnormal Lab Results - Last 24 Hours (Table) 06/21/21 06/21/21 06/22/21 Range/Units 07:40 07:40 06:18 RBC 3.73 L 3.63 L (3.80-5.40) m/uL Hgb 11.1 L 10.6 L (11.4-16.0) gm/dL Hct 33.5 L (34.0-46.0) % Sodium 136 L (137-145) mmol/L Chloride 109 H (98-107) mmol/L Carbon Dioxide 19 L (22-30) mmol/L BUN (7-17) mg/dL Glucose (74-99) mg/dL Calcium (8.4-10.2) mg/dL AST 43 H (14-36) U/L Total Protein 6.1 L (6.3-8.2) g/dL Albumin 3.2 L (3.5-5.0) g/dL 06/22/21 Range/Units 06:18 RBC (3.80-5.40) m/uL Hgb (11.4-16.0) gm/dL Hct (34.0-46.0) % Sodium (137-145) mmol/L Chloride 111 H (98-107) mmol/L Carbon Dioxide (22-30) mmol/L BUN 6 L (7-17) mg/dL Glucose 105 H (74-99) mg/dL Calcium 8.2 L (8.4-10.2) mg/dL AST (14-36) U/L Total Protein (6.3-8.2) g/dL Albumin (3.5-5.0) g/dL
--- NOTE | 2021-06-22 13:51 | P.DS ---
Providers Date of admission: 06/16/21 18:19 Expected date of discharge: 06/22/21 Attending physician: Latricia Dumont Consults: 06/16/21 20:53 Consult Physician Routine Consulting Provider: Radha Koroma Consult Reason/Comments: Uncontrolled hypertension, medical management Do you want consulting provider notified?: Yes Primary care physician: Stated None - Discharge Diagnosis(es) (1) Sigmoid volvulus Status: Acute (2) Small bowel obstruction Status: Acute Hospital Course: Discharge diagnosis 1. Small bowel obstruction on admission 2. Large bowel obstruction due to sigmoid volvulus 3. Epigastric abdominal with history of gastric ulcers 4. 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 She is 9 years out. She reports doing fair 3 years ago in 2019 and had gotten . She reports having no moderate abdominal pain for the past 3 years. She then developed moderate to severe persistent left upper and left lower quadrant abdominal pain for over 2 weeks. Her abdominal pain is crampy and intermittent. She reports foul smelling stools including intermittent obstipation. She has pre-existing history of elongated sigmoid colon and intermittent sigmoid volvulus. She went to another ER yesterday where work-up was negative per her recollection. Per discussion with ER provider, CT scan was negative. Patient reports persistent symptoms. She presents to the ER for intractable abdominal pain. Patient had a x-ray completed showing partial small bowel obstruction. Patient is status post Robotic-assisted da Rocio Xi diagnostic laparoscopy with reduction of small bowel and large bowel volvulus on 06/19/2021. Then on 06/21/2021 patient had colonoscopy with decompression for sigmoid volvulus and EGD completed with no evidence of ulcers or foreign body. Patient tolerating diet. Pain controlled. Afebrile. Having flatus. She is up and ambulating. She is stable for discharge. Physician Dairy Department Manager note has been reviewed by physician. Signing provider agrees with the documented findings, assessment, and plan of care. POSTOPERATIVE DIAGNOSES: 1. Acute sigmoid volvulus with small bowel volvulus causing bowel obstruction 2. History of peritoneal adhesions 3. History of gastric bypass for obesity 4. Morbid obesity due to excess calories, BMI initial 60.7 to 48.8 5. Obstructive sleep apnea. 6. Fibromyalgia. 7. Gastroesophageal reflux disease. 8. Diabetes type 2 mellitus 9. Hypertensive heart disease 10. Dyslipidemia. 11. Bilateral lower extremity edema. 12. Polycystic ovarian syndrome. 13. Restless leg syndrome. 14. History of MRSA 15. Cardiomyopathy. 16. Anxiety. 17. Neuropathy 18. Asthma. 19. Panniculitis. 20. Factor V Leiden 21. Migraine 22. Obstructive sleep apnea 23. Fatty liver disease 24. Mitral valve prolapse 25. Angina 26. Chronic obstructive pulmonary disease 27. Claustrophobia 28. Posttraumatic stress disorder 29. Iron deficiency anemia 30. Depressive disorder 31. Osteoarthritis. INDICATIONS: The patient is a 50-year-old female who presented with intractable left upper quadrant and left lower quadrant abdominal pain including bowel obstruction. She had diagnostic laparoscopy with features of small bowel v olvulus and large bowel volvulus. She had colonoscopic decompression of her colon volvulus. Prior to discharge, she was tolerating diet. Possible colectomy in the future was reviewed. As her symptoms improved, she was stable for discharge. Procedures: OPERATION: 1. Robotic-assisted da Rocio Xi diagnostic laparoscopy with reduction of small bowel and large bowel volvulus ESTIMATED BLOOD LOSS: 5 mL. SPECIMENS REMOVED: None. COMPLICATIONS: None. OPERATIVE FINDINGS: 1. No ventral hernias identified. 2. Sigmoid bowel dilation with acute sigmoid volvulus 3. Long mesentery of the small bowel with small bowel volvulus reduced 4. Complete scarring of Harvey defect and jejunojejunostomy mesenteric defect 5. Reconstruction of jejunojejunostomy and common channel identified Patient Condition at Discharge: Stable Plan - Discharge Summary Discharge Rx Participant: No New Discharge Prescriptions: New Ergocalciferol [Vitamin D2 (1250 Mcg = 68431 Iu)] 50,000 unit PO WEEKLY #12 capsule Acetaminophen Tab [Tylenol] 1,000 mg PO Q6HR PRN #30 tablet PRN Reason: Pain Continue Cyclobenzaprine [Flexeril] 10 mg PO BID Nitroglycerin Sl Tabs [Nitrostat] 0.4 mg PO Q5M PRN PRN Reason: Chest Pain Metoprolol Succinate [Toprol XL] 50 mg PO DAILY Metoclopramide HCl [Reglan] 5 mg PO HS Ferrous Sulfate [Feosol] 325 mg PO DAILY Zinc 50 mg PO DAILY rOPINIRole HCL [Requip] 2 mg PO BID Furosemide [Lasix] 20 mg PO DAILY Lisinopril [Zestril] 10 mg PO DAILY Topiramate [Topamax] 100 mg PO DAILY Pregabalin [Lyrica] 200 mg PO BID Rosuvastatin Calcium [Crestor] 40 mg PO HS SUMAtriptan SUCCINATE [Imitrex] 100 mg PO BID PRN PRN Reason: Migraine Headache Rizatriptan Benzoate [Rizatriptan] 10 mg PO BID PRN PRN Reason: Migraine Headache Magnesium 250 mg PO HS Famotidine 20 mg PO BID Calcium Carb-Vit D 250Mg-125Un [Oscal 250+D 3.125 Mcg (125 Iu)] 1 tab PO DAILY Benzonatate [Tessalon Perles] 100 mg PO TID PRN PRN Reason: Cough Amitriptyline HCl [Elavil] 75 mg PO HS Discharge Medication List Cyclobenzaprine [Flexeril] 10 mg PO BID 08/05/16 [History] Ferrous Sulfate [Feosol] 325 mg PO DAILY 01/22/18 [History] Metoclopramide HCl [Reglan] 5 mg PO HS 01/22/18 [History] Metoprolol Succinate [Toprol XL] 50 mg PO DAILY 01/22/18 [History] Nitroglycerin Sl Tabs [Nitrostat] 0.4 mg PO Q5M PRN 01/22/18 [History] Zinc 50 mg PO DAILY 03/04/18 [History] rOPINIRole HCL [Requip] 2 mg PO BID 03/21/18 [History] Furosemide [Lasix] 20 mg PO DAILY 05/29/18 [History] Lisinopril [Zestril] 10 mg PO DAILY 09/03/18 [History] Amitriptyline HCl [Elavil] 75 mg PO HS 06/16/21 [History] Benzonatate [Tessalon Perles] 100 mg PO TID PRN 06/16/21 [History] Calcium Carb-Vit D 250Mg-125Un [Oscal 250+D 3.125 Mcg (125 Iu)] 1 tab PO DAILY 06/16/21 [History] Famotidine 20 mg PO BID 06/16/21 [History] Magnesium 250 mg PO HS 06/16/21 [History] Pregabalin [Lyrica] 200 mg PO BID 06/16/21 [History] Rizatriptan Benzoate [Rizatriptan] 10 mg PO BID PRN 06/16/21 [History] Rosuvastatin Calcium [Crestor] 40 mg PO HS 06/16/21 [History] SUMAtriptan SUCCINATE [Imitrex] 100 mg PO BID PRN 06/16/21 [History] Topiramate [Topamax] 100 mg PO DAILY 06/16/21 [History] Acetaminophen Tab [Tylenol] 1,000 mg PO Q6HR PRN #30 tablet 06/22/21 [Rx] Ergocalciferol [Vitamin D2 (1250 Mcg = 23611 Iu)] 50,000 unit PO WEEKLY #12 capsule 06/22/21 [Rx] Follow up Appointment(s)/Referral(s): Sumit Luis MD [STAFF PHYSICIAN] - 1 Week (follow up for severe iron defeciency anemia) Colt Jimenez MD [REFERRING] - 1-2 Days (Referring to Dr. Colt Jimenez primary care provider in your area.) Latricia Dumont MD [STAFF PHYSICIAN] - 06/27/21 Patient Instructions/Handouts: Bowel Obstruction (DC), Exploratory Laparoscopy (DC) Activity/Diet/Wound Care/Special Instructions: No lifting over 4 pounds in 4 weeks You May shower. No bath tub soaks for two weeks Drink 2 protein shakes daily Use Tylenol scheduled for the next 24-48 hours for best pain relief. Use ice along incisions for the today to prevent swelling. - Glucometer is at [facility] in [place] with other scripts. Discharge Disposition: HOME SELF-CARE
[2021-06-22 14:54] VITALS: BP 149/90; PULSE 64; TEMP 97.8
== END 2021-06-22 16:39 | disposition home or self-care (01) | DRG 345 ==
LOC: EC 08:27 → 4SSUR 18:19
PROVIDERS: ADMIT Surgery Plastic and Reconstructive Surgery; ATTEND Surgery Plastic and Reconstructive Surgery
PROC: 0WJG4ZZ Inspection of Peritoneal Cavity, Percutaneous Endoscopic Approach (ICD-10-PCS; principal; 2021-06-19 07:30)
PROC: 8E0W4CZ Robotic Assisted Procedure of Trunk Region, Percutaneous Endoscopic Approach (ICD-10-PCS; principal; 2021-06-19 07:30)
PROC: 0D9N8ZZ Drainage of Sigmoid Colon, Via Natural or Artificial Opening Endoscopic (ICD-10-PCS; 2021-06-21 11:35)
PROC: 0DJ08ZZ Inspection of Upper Intestinal Tract, Via Natural or Artificial Opening Endoscopic (ICD-10-PCS; 2021-06-21 11:35)
DX: K56.2 Volvulus (principal); D68.51 Activated protein C resistance; Z68.42 Body mass index [BMI] 45.0-49.9, adult; I42.9 Cardiomyopathy, unspecified; N39.0 Urinary tract infection, site not specified; I31.8 Other specified diseases of pericardium; D50.9 Iron deficiency anemia, unspecified; E11.40 Type 2 diabetes mellitus with diabetic neuropathy, unspecified; E28.2 Polycystic ovarian syndrome; E55.9 Vitamin D deficiency, unspecified; E66.01 Morbid (severe) obesity due to excess calories; E78.5 Hyperlipidemia, unspecified; F31.9 Bipolar disorder, unspecified; J44.9 Chronic obstructive pulmonary disease, unspecified; K76.0 Fatty (change of) liver, not elsewhere classified; I11.9 Hypertensive heart disease without heart failure; K56.600 Partial intestinal obstruction, unspecified as to cause; F40.240 Claustrophobia; F43.10 Post-traumatic stress disorder, unspecified; Z28.310 Unvaccinated for COVID-19; G25.81 Restless legs syndrome; I34.1 Nonrheumatic mitral (valve) prolapse; G43.909 Migraine, unspecified, not intractable, without status migrainosus; G47.33 Obstructive sleep apnea (adult) (pediatric); H91.90 Unspecified hearing loss, unspecified ear; J32.9 Chronic sinusitis, unspecified; K21.9 Gastro-esophageal reflux disease without esophagitis; K64.0 First degree hemorrhoids; K64.3 Fourth degree hemorrhoids; M19.90 Unspecified osteoarthritis, unspecified site; M79.3 Panniculitis, unspecified; M79.7 Fibromyalgia; Z79.899 Other long term (current) drug therapy; Z80.0 Family history of malignant neoplasm of digestive organs; Z80.7 Family history of other malignant neoplasms of lymphoid, hematopoietic and related tissues; Z82.49 Family history of ischemic heart disease and other diseases of the circulatory system; Z83.3 Family history of diabetes mellitus; Z86.14 Personal history of Methicillin resistant Staphylococcus aureus infection; Z87.11 Personal history of peptic ulcer disease; Z88.9 Allergy status to unspecified drugs, medicaments and biological substances; Z98.890 Other specified postprocedural states; Z90.89 Acquired absence of other organs; Z90.49 Acquired absence of other specified parts of digestive tract; Z98.84 Bariatric surgery status; Z91.041 Radiographic dye allergy status; Z88.5 Allergy status to narcotic agent; Z88.0 Allergy status to penicillin; Z88.2 Allergy status to sulfonamides; Z88.8 Allergy status to other drugs, medicaments and biological substances; Z91.018 Allergy to other foods
CPT/HCPCS: 36415; 43235; 45393; 74018; 74250; 80048; 80053; 80061; 81001; 81025; 82150; 82272; 82306; 82607; 82728; 82747; 83036; 83540; 83550; 83605; 83690; 83735; 84100; 84484; 85025; 85027; 85610; 85730; 86850; 86900; 86901; 87077; 87086; 87186; 93005; 96361; 96374; 96375; 96376; 99285

== ENCOUNTER 2021-07-12 00:37 | Emergency (ER) | payer BC, MEDICARE, OTHER ==
[2021-07-12 00:42] VITALS: TEMP 98.1
[2021-07-12] MEDS ORDERED: diphenhydrAMINE 50 MG/ML 1 ML VIAL IVP STA (01:20)
[2021-07-12] MEDS ORDERED: HYDROmorphone 0.5 MG/0.5 ML SYRINGE IVP STA (01:20)
[2021-07-12] MEDS ORDERED: ONDANSETRON 4 MG/2 ML VIAL IVP STA (01:20)
[2021-07-12] MEDS ORDERED: SODIUM CHLORIDE 0.9% 1,000 ML IV STA (01:20)
[2021-07-12] MEDS ORDERED: methylPREDNISolone SOD SUCCI 125 MG/2 ML VIAL IV STA (01:21)
[2021-07-12] MEDS ORDERED: FAMOTIDINE 20 MG/2 ML VIAL IV STA (01:21)
--- NOTE | 2021-07-12 01:26 | ED ---
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 Patient has had multiple small bowel obstructions, most recently at the end of May when she was admitted here and had laparos copic surgery by Dr. Dumont. Patient states she is scheduled to have surgery again for a thickened and sensory portion of her colon. Patient states on Saturday she started having severe abdominal pain in the upper abdomen which is aspirin by palpation. Patient's also had nausea and vomiting. No hematemesis or coffee-ground emesis. Patient denies any changes in bowel movements. No headache, no fever or chills, no changes in vision or hearing, no sore throat or difficulty with speech, no neck pain, no chest pain or shortness of breath, no changes in urination or bowel movements, no numbness or tingling, no extremity pain, no skin rashes or lesions. (Mirza Sutton) - Related Data Home Medications Medication Instructions Recorded Confirmed Cyclobenzaprine [Flexeril] 10 mg PO BID 08/05/16 06/16/21 Ferrous Sulfate [Feosol] 325 mg PO DAILY 01/22/18 06/16/21 Metoclopramide HCl [Reglan] 5 mg PO HS 01/22/18 06/16/21 Metoprolol Succinate [Toprol XL] 50 mg PO DAILY 01/22/18 06/16/21 Nitroglycerin Sl Tabs [Nitrostat] 0.4 mg PO Q5M PRN 01/22/18 06/16/21 Zinc 50 mg PO DAILY 03/04/18 06/16/21 rOPINIRole HCL [Requip] 2 mg PO BID 03/21/18 06/16/21 Furosemide [Lasix] 20 mg PO DAILY 05/29/18 06/16/21 Lisinopril [Zestril] 10 mg PO DAILY 09/03/18 06/16/21 Amitriptyline HCl [Elavil] 75 mg PO HS 06/16/21 06/16/21 Benzonatate [Tessalon Perles] 100 mg PO TID PRN 06/16/21 06/16/21 Calcium Carb-Vit D 250Mg-125Un 1 tab PO DAILY 06/16/21 06/16/21 [Oscal 250+D 3.125 Mcg (125 Iu)] Famotidine 20 mg PO BID 06/16/21 06/16/21 Magnesium 250 mg PO HS 06/16/21 06/16/21 Pregabalin [Lyrica] 200 mg PO BID 06/16/21 06/16/21 Rizatriptan Benzoate [Rizatriptan] 10 mg PO BID PRN 06/16/21 06/16/21 Rosuvastatin Calcium [Crestor] 40 mg PO HS 06/16/21 06/16/21 SUMAtriptan SUCCINATE [Imitrex] 100 mg PO BID PRN 06/16/21 06/16/21 Topiramate [Topamax] 100 mg PO DAILY 06/16/21 06/16/21 Previous Rx's Medication Instructions Recorded Acetaminophen Tab [Tylenol] 1,000 mg PO Q6HR PRN #30 tablet 06/22/21 Ergocalciferol [Vitamin D2 (1250 50,000 unit PO WEEKLY #12 capsule 06/22/21 Mcg = 56807 Iu)] Clindamycin [Cleocin] 450 mg PO Q6H #120 cap 06/25/21 Nitrofurantoin Monohyd/M-Cryst 100 mg PO Q12HR #14 cap 07/12/21 [Macrobid] Ondansetron [Zofran ODT] 4 mg PO Q8HR #20 tab 07/12/21 Allergies Allergy/AdvReac Type Severity Reaction Status Date / Time Sulfa (Sulfonamide Allergy Severe Anaphylaxis Verified 07/12/21 00:43 Antibiotics) adhesive tape Allergy BLISTERS Verified 07/12/21 00:43 amoxicillin [From Augmentin] Allergy Rash/Hives Verified 07/12/21 00:43 clavulanic acid Allergy Rash/Hives Verified 07/12/21 00:43 [From Augmentin] codeine Allergy ABDOMINAL Verified 07/12/21 00:43 PAIN, MIGRAINE HEADACHE Iodinated Contrast Media Allergy Itching Verified 07/12/21 00:43 [Iodinated Contrast- Oral and IV Dye] morphine Allergy Itching Verified 07/12/21 00:43 Penicillins Allergy Rash/Hives/Itching/Gi Verified 07/12/21 00:43 Upset adhesive AdvReac Itching Verified 07/12/21 00:43 artificial sweetners Allergy Nausea, Uncoded 07/12/21 00:43 MIGRAINE HEADACHE Review of Systems ROS Other: All systems not noted in ROS Statement are negative. <Tristan Navarro - Last Filed: 07/12/21 03:49> ROS Other: All systems not noted in ROS Statement are negative. <Mirza Sutton - Last Filed: 07/12/21 18:05> ROS Statement: Those systems with pertinent positive or pertinent negative responses have been documented in the HPI. Past Medical History Past Medical History: Asthma, Blood Disorder, Chest Pain / Angina, COPD, Diabetes Mellitus, Fibromyalgia, GERD/Reflux, Hearing Disorder / Deafness, Hyperlipidemia, Hypertension, Liver Disease, Mitral Valve Prolapse (MVP), Musculoskeletal Disorder, Osteoarthritis (OA), Pneumonia, Respiratory Disorder, Sleep Apnea/CPAP/BIPAP Additional Past Medical History / Comment(s): MIGRAINES, DEGENERATIVE DISC DISEASE, FATTY LIVER, LEIDEN FACTOR 5, OCCASIONAL SWELLING IN LOWER EXT.NEUROPATHY, RLS, diabetes is in remission since surgery, chronic back pain, PATIENT HAS BEEN OFF MEDS FOR DIABETES SINCE BARIATRIC SURGERY History of Any Multi-Drug Resistant Organisms: ESBL Date of last positivie culture/infection: 09/15/18 MDRO Source:: ESBL URINE Past Surgical History: Adenoidectomy, Appendectomy, Bariatric Surgery, Bowel Resection, Breast Surgery, Section, Cholecystectomy, Ear Surgery, Heart Catheterization, Hernia Repair, Orthopedic Surgery, Tonsillectomy Additional Past Surgical History / Comment(s): ARTHROSCOPY RT KNEE X3, RT BREAST BX-NEG, (13) MYRINGOTOMYS. laparoscopic danielle-en-y with lysis of adhesions 2013; Surgical wound debridement x3 ; SX TO REMOVED SCAR TISSUE FROM PREVIOUS ABD SX;EGD ; LAP EXAM- APPY SMALL BOWEL OBSTRUCTION LYSIS OFF ADHESIONS, 3 hernia repairs, 3 bowel resection, 07/2016 colon resection, adhesions removed 03/2018 Past Anesthesia/Blood Transfusion Reactions: No Reported Reaction Additional Past Anesthesia/Blood Transfusion Reaction / Comment(s): SEVERE HEADACHE AFTER LAST SCOPE, clausterphobia Past Psychological History: Anxiety, Bipolar, Depression, PTSD Smoking Status: Never smoker Past Alcohol Use History: Occasional Past Drug Use History: Marijuana - Past Family History Mother Family Medical History: Deep Vein Thrombosis (DVT), Hypertension, Pulmonary Embolus, Thyroid Disorder Additional Family Medical History / Comment(s): FACTOR 5 LEIDEN, MVP Father Family Medical History: Diabetes Mellitus, Hypertension, Myocardial Infarction ([place]) Additional Family Medical History / Comment(s): AGE 59 [place] <HermanMirza - Last Filed: 07/12/21 18:05> General Exam Limitations: no limitations General appearance: alert, in no apparent distress Head exam: Present: atraumatic, normocephalic, normal inspection Eye exam: Present: normal appearance, PERRL, EOMI. Absent: scleral icterus, conjunctival injection, periorbital swelling ENT exam: Present: normal exam, normal oropharynx, mucous membranes moist. Absent: mucous membranes dry, TM's normal bilaterally, normal external ear exam Neck exam: Present: normal inspection, full ROM. Absent: tenderness, meningis mus, lymphadenopathy Respiratory exam: Present: normal lung sounds bilaterally. Absent: respiratory distress, wheezes, rales, rhonchi, stridor Cardiovascular Exam: Present: regular rate, normal rhythm, normal heart sounds. Absent: systolic murmur, diastolic murmur, rubs, gallop, clicks GI/Abdominal exam: Present: soft, tenderness (Patient has tenderness to palpation across the upper abdomen. Surgical incision sites appear to be healing appropriately. No evidence of dehiscence or secondary infection.), guarding, diminished bowel sounds. Absent: distended, rebound, rigid, bruit, pulsatile mass Extremities exam: Present: normal inspection, full ROM, normal capillary refill. Absent: tenderness, pedal edema, joint swelling, calf tenderness Back exam: Present: normal inspection Neurological exam: Present: alert, oriented X3, CN II-XII intact Psychiatric exam: Present: normal affect, normal mood Skin exam: Present: warm, dry, intact, normal color. Absent: rash <HermanMirza - Last Filed: 07/12/21 18:05> Course Vital Signs 07/12/21 07/12/21 00:40 03:46 Temperature 98.1 F Pulse Rate 90 68 Respiratory 18 16 Rate Blood Pressure 187/83 164/81 O2 Sat by Pulse 100 97 Oximetry Medical Decision Making - Lab Data Result diagrams: 07/12/21 01:33 07/12/21 01:33 <Tristan Navarro - Last Filed: 07/12/21 03:49> - Lab Data Result diagrams: 07/12/21 01:33 07/12/21 01:33 <Mirza Sutton - Last Filed: 07/12/21 18:05> - Medical Decision Making Patient presents with upper abdominal pain which is quite severe. Differential is wide and includes recurrence of small bowel obstruction. Bowel ischemia. Other inflammatory infectious etiology. Clinical picture does not fit cardiopulmonary etiology. However order a troponin and EKG since this is upper abdominal pain. Ceftazadime IV piggyback ordered for the patient for urinary tract infection. Patient endorsed to the ED attending physician at 3:[address] results. Patient was told to return to the ER for any signs or symptoms worsen. Told to return immediately if any other problems arise. All questions answered. Treatment plan discussed. Patient in agreement Every effort has been made to ensure accuracy of this dictation. However, due to the limitations of electronic medical records and dictation devices, errors in charting still occur. Patient was reevaluated prior to discharge is resting comfortably in bed. Juma dee much improved. Discussed admission versus discharge. Patient states she feels well enough to go home. Informed the patient of the urinary tract infection. Told the patient to call her surgeon in the morning for short-term follow-up. Patient voiced understanding. Supervising Dr. Navarro (Mirza Sutton) - Lab Data Lab Results 07/12/21 07/12/21 07/12/21 Range/Units 01:33 01:33 01:33 WBC 7.5 (3.8-10.6) k/uL RBC 4.15 (3.80-5.40) m/uL Hgb 12.2 (11.4-16.0) gm/dL Hct 37.4 (34.0-46.0) % MCV 90.1 (80.0-100.0) fL MCH 29.3 (25.0-35.0) pg MCHC 32.5 (31.0-37.0) g/dL RDW 13.9 (11.5-15.5) % Plt Count 239 (150-450) k/uL MPV 7.3 Neutrophils % 67 % Lymphocytes % 24 % Monocytes % 5 % Eosinophils % 2 % Basophils % 1 % Neutrophils # 5.1 (1.3-7.7) k/uL Lymphocytes # 1.8 (1.0-4.8) k/uL Monocytes # 0.4 (0-1.0) k/uL Eosinophils # 0.2 (0-0.7) k/uL Basophils # 0.0 (0-0.2) k/uL PT 10.4 (9.0-12.0) sec INR 0.9 (<1.2) APTT 22.3 (22.0-30.0) sec Sodium (137-145) mmol/L Potassium (3.5-5.1) mmol/L Chloride (98-107) mmol/L Carbon Dioxide (22-30) mmol/L Anion Gap mmol/L BUN (7-17) mg/dL Creatinine (0.52-1.04) mg/dL Est GFR (CKD-EPI)AfAm (>60 ml/min/1.73 sqM) Est GFR (CKD-EPI)NonAf (>60 ml/min/1.73 sqM) Glucose (74-99) mg/dL Plasma Lactic Acid Esteban (0.7-2.0) mmol/L Calcium (8.4-10.2) mg/dL Total Bilirubin (0.2-1.3) mg/dL AST (14-36) U/L ALT (4-34) U/L Alkaline Phosphatase (38-126) U/L Troponin I (0.000-0.034) ng/mL Total Protein (6.3-8.2) g/dL Albumin (3.5-5.0) g/dL Lipase (23-300) U/L Urine Color Yellow Urine Appearance Cloudy H (Clear) Urine pH 5.5 (5.0-8.0) Ur Specific [place] 1.029 (1.001-1.035) Urine Protein 1+ H (Negative) Urine Glucose (UA) Negative (Negative) Urine Ketones Negative (Negative) Urine Blood Small H (Negative) Urine Nitrite Negative (Negative) Urine Bilirubin 1+ H (Negative) Urine Urobilinogen 2.0 (<2.0) mg/dL Ur Leukocyte Esterase Large H (Negative) Urine RBC 139 H (0-5) /hpf Urine WBC >182 H (0-5) /hpf Urine WBC Clumps Many H (None) /hpf Ur Squamous Epith Cells 5 H (0-4) /hpf Urine Bacteria Moderate H (None) /hpf Hyaline Casts 18 H (0-2) /lpf Urine Mucus Occasional H (None) /hpf Urine Yeast (Budding) Occasional H (None) /hpf Urine HCG, Qual (Not Detectd) 07/12/21 07/12/21 07/12/21 Range/Units 01:33 01:33 01:33 WBC (3.8-10.6) k/uL RBC (3.80-5.40) m/uL Hgb (11.4-16.0) gm/dL Hct (34.0-46.0) % MCV (80.0-100.0) fL MCH (25.0-35.0) pg MCHC (31.0-37.0) g/dL RDW (11.5-15.5) % Plt Count (150-450) k/uL MPV Neutrophils % % Lymphocytes % % Monocytes % % Eosinophils % % Basophils % % Neutrophils # (1.3-7.7) k/uL Lymphocytes # (1.0-4.8) k/uL Monocytes # (0-1.0) k/uL Eosinophils # (0-0.7) k/uL Basophils # (0-0.2) k/uL PT (9.0-12.0) sec INR (<1.2) APTT (22.0-30.0) sec Sodium 137 (137-145) mmol/L Potassium 3.6 (3.5-5.1) mmol/L Chloride 102 (98-107) mmol/L Carbon Dioxide 29 (22-30) mmol/L Anion Gap 6 mmol/L BUN 16 (7-17) mg/dL Creatinine 0.67 (0.52-1.04) mg/dL Est GFR (CKD-EPI)AfAm >90 (>60 ml/min/1.73 sqM) Est GFR (CKD-EPI)NonAf >90 (>60 ml/min/1.73 sqM) Glucose 155 H (74-99) mg/dL Plasma Lactic Acid Esteban 1.0 (0.7-2.0) mmol/L Calcium 8.9 (8.4-10.2) mg/dL Total Bilirubin 1.1 (0.2-1.3) mg/dL AST 25 (14-36) U/L ALT 18 (4-34) U/L Alkaline Phosphatase 118 (38-126) U/L Troponin I (0.000-0.034) ng/mL Total Protein 6.7 (6.3-8.2) g/dL Albumin 4.0 (3.5-5.0) g/dL Lipase 78 (23-300) U/L Urine Color Urine Appearance (Clear) Urine pH (5.0-8.0) Ur Specific [place] (1.001-1.035) Urine Protein (Negative) Urine Glucose (UA) (Negative) Urine Ketones (Negative) Urine Blood (Negative) Urine Nitrite (Negative) Urine Bilirubin (Negative) Urine Urobilinogen (<2.0) mg/dL Ur Leukocyte Esterase (Negative) Urine RBC (0-5) /hpf Urine WBC (0-5) /hpf Urine WBC Clumps (None) /hpf Ur Squamous Epith Cells (0-4) /hpf Urine Bacteria (None) /hpf Hyaline Casts (0-2) /lpf Urine Mucus (None) /hpf Urine Yeast (Budding) (None) /hpf Urine HCG, Qual Not Detected (Not Detectd) 07/12/21 Range/Units 01:33 WBC (3.8-10.6) k/uL RBC (3.80-5.40) m/uL Hgb (11.4-16.0) gm/dL Hct (34.0-46.0) % MCV (80.0-100.0) fL MCH (25.0-35.0) pg MCHC (31.0-37.0) g/dL RDW (11.5-15.5) % Plt Count (150-450) k/uL MPV Neutrophils % % Lymphocytes % % Monocytes % % Eosinophils % % Basophils % % Neutrophils # (1.3-7.7) k/uL Lymphocytes # (1.0-4.8) k/uL Monocytes # (0-1.0) k/uL Eosinophils # (0-0.7) k/uL Basophils # (0-0.2) k/uL PT (9.0-12.0) sec INR (<1.2) APTT (22.0-30.0) sec Sodium (137-145) mmol/L Potassium (3.5-5.1) mmol/L Chloride (98-107) mmol/L Carbon Dioxide (22-30) mmol/L Anion Gap mmol/L BUN (7-17) mg/dL Creatinine (0.52-1.04) mg/dL Est GFR (CKD-EPI)AfAm (>60 ml/min/1.73 sqM) Est GFR (CKD-EPI)NonAf (>60 ml/min/1.73 sqM) Glucose (74-99) mg/dL Plasma Lactic Acid Esteban (0.7-2.0) mmol/L Calcium (8.4-10.2) mg/dL Total Bilirubin (0.2-1.3) mg/dL AST (14-36) U/L ALT (4-34) U/L Alkaline Phosphatase (38-126) U/L Troponin I <0.012 (0.000-0.034) ng/mL Total Protein (6.3-8.2) g/dL Albumin (3.5-5.0) g/dL Lipase (23-300) U/L Urine Color Urine Appearance (Clear) Urine pH (5.0-8.0) Ur Specific [place] (1.001-1.035) Urine Protein (Negative) Urine Glucose (UA) (Negative) Urine Ketones (Negative) Urine Blood (Negative) Urine Nitrite (Negative) Urine Bilirubin (Negative) Urine Urobilinogen (<2.0) mg/dL Ur Leukocyte Esterase (Negative) Urine RBC (0-5) /hpf Urine WBC (0-5) /hpf Urine WBC Clumps (None) /hpf Ur Squamous Epith Cells (0-4) /hpf Urine Bacteria (None) /hpf Hyaline Casts (0-2) /lpf Urine Mucus (None) /hpf Urine Yeast (Budding) (None) /hpf Urine HCG, Qual (Not Detectd) - EKG Data EKG Comments: EKG done at 0202 and reviewed by myself and the attending physician reveals sinus rhythm with nonspecific T-wave abnormalities, baseline artifact, normal intervals, normal axis, no acute ST elevation or depression. (Mirza Sutton) Disposition <Tristan Navarro - Last Filed: 07/12/21 03:49> Is patient prescribed a controlled substance at d/c from ED?: No Time of Disposition: 03:27 <Mirza Sutton - Last Filed: 07/12/21 18:05> Clinical Impression: Upper abdominal pain, Urinary tract infection, Uncontrolled hypertension Disposition: HOME SELF-CARE Condition: Stable Instructions (If sedation given, give patient instructions): Urinary Tract Infection in Women (ED), Abdominal Pain (ED) Prescriptions: Nitrofurantoin Monohyd/M-Cryst [Macrobid] 100 mg PO Q12HR #14 cap Ondansetron [Zofran ODT] 4 mg PO Q8HR #20 tab Referrals: Latricia Dumont MD [STAFF PHYSICIAN] - As Soon As Possible
[2021-07-12 02:06] LABS: Basophils % (A) 1 %; Eosinophils # (A) 0.2 k/uL (0-0.7); Eosinophils % (A) 2 %; HCT 37.4 % (34.0-46.0); HGB 12.2 gm/dL (11.4-16.0); Lymphocytes # (A) 1.8 k/uL (1.0-4.8); Lymphocytes % (A) 24 %; MCH 29.3 pg (25.0-35.0); MCHC 32.5 g/dL (31.0-37.0); MCV 90.1 fL (80.0-100.0); Mean Platelet Volume 7.3; Monocytes # (A) 0.4 k/uL (0-1.0); Monocytes % (A) 5 %; Neutrophils # (A) 5.1 k/uL (1.3-7.7); Neutrophils % (A) 67 %; Platelet Count 239 k/uL (150-450); RBC 4.15 m/uL (3.80-5.40); RDW 13.9 % (11.5-15.5); WBC 7.5 k/uL (3.8-10.6)
[2021-07-12 02:08] LABS: Appearance,Urine Cloudy (Clear); Bacteria,Urine Moderate /hpf; Bilirubin,Urine 1+ (Negative); Blood,Urine Small (Negative); Budding Yeast,Urine Occasional /hpf; Color,Urine Yellow; Glucose,Urine (UA) Negative (Negative); Hyaline Casts,Urine 18 /lpf (0-2); Ketones,Urine Negative (Negative); Leukocyte Esterase,Urine Large (Negative); Mucus,Urine Occasional /hpf; Nitrite,Urine Negative (Negative); PH, Urine 5.5 (5.0-8.0); Protein,Urine 1+ (Negative); RBC,Urine 139 /hpf (0-5); Specific Gravity,Urine 1.029 (1.001-1.035); Squamous Epithelial Cell,Urine 5 /hpf (0-4); WBC,Urine >182 /hpf (0-5)
[2021-07-12 02:27] LABS: INR 0.9 (<1.2); Partial Thromboplastin Time 22.3 sec (22.0-30.0); Prothrombin Time 10.4 sec (9.0-12.0)
[2021-07-12 02:35] LABS: ALT 18 U/L (4-34); AST 25 U/L (14-36); African American GFR (CKD) >90 (>60 ml/min/1.73 sqM); Alkaline Phosphatase 118 U/L (38-126); Anion Gap 6 mmol/L; Blood Urea Nitrogen 16 mg/dL (7-17); Calcium 8.9 mg/dL (8.4-10.2); Carbon Dioxide 29 mmol/L (22-30); Chloride 102 mmol/L (98-107); Glucose 155 mg/dL (74-99); Lipase 78 U/L (23-300); Non-African American GFR(CKD) >90 (>60 ml/min/1.73 sqM); Potassium 3.6 mmol/L (3.5-5.1); Sodium 137 mmol/L (137-145); Total Bilirubin 1.1 mg/dL (0.2-1.3); Total Protein 6.7 g/dL (6.3-8.2)
--- NOTE | 2021-07-12 03:06 | XR ---
EXAMINATION TYPE: XR chest 1V DATE OF EXAM: 07/12/2021 COMPARISON: 09/03/2018 HISTORY: Abdominal pain TECHNIQUE: Single view FINDINGS: Heart and mediastinum are normal. Lungs are clear. Diaphragm is normal. Bony thorax appears normal. IMPRESSION: Normal chest. No change.
--- NOTE | 2021-07-12 03:18 | CT ---
EXAMINATION TYPE: CT abdomen pelvis w con DATE OF EXAM: 07/12/2021 COMPARISON: None HISTORY: upper abd pain. h/o 3 bowel resections & hernia repairs, scheduled for another resection 06/25 CT DLP: 2140.1 mGycm Automated exposure control for dose reduction was used. CONTRAST: Performed with IV Contrast, patient injected with 100 mL of Isovue 300. Images obtained from the diaphragm to the floor the pelvis with IV contrast. Lung bases are clear. No pleural effusion. Heart size is fairly normal. There is previous gastric bar iatric surgery. No pericardial effusion. There are clips from cholecystectomy. Liver spleen pancreas stomach appear intact. The bile ducts are not dilated. There is no adrenal mass. Kidneys have normal size and contour. There is no hydronephrosis. Ureters a re not dilated. There is no retroperitoneal adenopathy. Bladder distends smoothly. There is no inguin al hernia. No free fluid in the pelvis. There is no mesenteric edema. No ascites or free air. No bowel obstruction. Appendix not seen. Uterus is anteverted. No pelvic mass. Abdominal aorta is atheromatous. The lumbar vertebrae have normal alignment. No compression fracture. The bony pelvis is intact. The h ip joints are intact. No evidence of abdominal or pelvic mass. IMPRESSION: Previous surgery. No acute abnormality within the abdomen and pelvis. No adverse change compared to o ld exam.
[2021-07-12] MEDS ORDERED: ONDANSETRON 4 MG ODT STARTER PACK 2 TAB BTL PO STA (03:26)
[2021-07-12] MEDS ORDERED: ACET/COD 300 MG/30 MG STARTER PACK 6 TAB BTL PO STA (03:26)
[2021-07-12 03:47] VITALS: BP 164/81; PULSE 68; RESP 16
== END 2021-07-12 04:28 | disposition home or self-care (01) ==
LOC: EC 00:37
DX: R10.10 Upper abdominal pain, unspecified (principal); N39.0 Urinary tract infection, site not specified; I10 Essential (primary) hypertension; J44.9 Chronic obstructive pulmonary disease, unspecified; M19.90 Unspecified osteoarthritis, unspecified site; E78.5 Hyperlipidemia, unspecified; E11.40 Type 2 diabetes mellitus with diabetic neuropathy, unspecified; F31.9 Bipolar disorder, unspecified; F43.10 Post-traumatic stress disorder, unspecified; Z88.0 Allergy status to penicillin; Z88.1 Allergy status to other antibiotic agents; Z88.2 Allergy status to sulfonamides; Z91.048 Other nonmedicinal substance allergy status; Z91.02 Food additives allergy status; Z91.041 Radiographic dye allergy status; Z88.5 Allergy status to narcotic agent; Z72.89 Other problems related to lifestyle
CPT/HCPCS: 36415; 93005; 80053; 83605; 83690; 84484; 85025; 85610; 85730; 81001; 81025; 87086; 71045; 74177; 99284; 96365; 96375 ×5; 96361; J0713; J1200; J2930; J2405; S0119; J1170; Q9967

== ENCOUNTER 2021-07-18 11:59 | Inpatient (IN) | payer BC, MEDICARE ==
[2021-07-18] MEDS ORDERED: HYDROmorphone 0.5 MG/0.5 ML SYRINGE IVP STA (14:27)
[2021-07-18] MEDS ORDERED: SODIUM CHLORIDE 0.9% 1,000 ML IV STA (14:27)
--- NOTE | 2021-07-18 14:29 | ED ---
General Adult HPI - General Chief complaint: Abdominal Pain Stated complaint: Abd pain Time Seen by Provider: 07/18/21 14:18 Source: patient Mode of arrival: ambulatory Limitations: no limitations - History of Present Illness Initial comments: Dictation was produced using [employer] dictation software. please excuse any grammatical, word or spelling errors. Chief Complaint: 51-year-old old female sent by general surgeon for admission to treat sigmoid volvulus History of Present Illness: Is a 51-year-old female she presents to the [facility] department for worsening abdominal pain and sigmoid volvulus. She was seen at Dr. Gabriel's office today and was told to come to the emergency department for concerns of sigmoid volvulus. Patient was admitted to the hospital earlier this month and had robotic-assisted laparoscopic with reduction of small bowel and large bowel volvulus.. Patient states that she's been having worsening abdominal pain for the last several days. The ROS documented in this emergency department record has been reviewed and confirmed by me. Those systems with pertinent positive or negative responses have been documented in the HPI. All other systems are other negative and/or noncontributory. PHYSICAL EXAM: General Impression: Alert and oriented x3, acute distress secondary to pain HEENT: Normocephalic atraumatic, extra-ocular movements intact, pupils equal and reactive to light bilaterally, mucous membranes moist. Cardiovascular: Heart regular rate and rhythm Chest: Able to complete full sentences, no retractions, no tachypnea Abdomen: abdomen soft, diffuse felt or tenderness, non-distended, no organomegaly Musculoskeletal: Pulses present and equal in all extremities, no peripheral edema Motor: no focal deficits noted Neurological: CN II-XII grossly intact, no focal motor or sensory deficits noted Skin: Intact with no visualized rashes Psych: Normal affect and mood ED course: 51 yo Female sent in by general surgeon for concerns of sigmoid volvulus. Vital signs upon arrival are within acceptable limits. Lavatory evaluation obtained. CBC, coag panel, both panel is unremarkable. Abdominal x-ray shows no obstructive processes. General surgeon, Dr. Dumont requested patient be admitted for surgical procedure. - Related Data Home Medications Medication Instructions Recorded Confirmed Cyclobenzaprine [Flexeril] 10 mg PO BID 08/05/16 06/16/21 Ferrous Sulfate [Feosol] 325 mg PO DAILY 01/22/18 06/16/21 Metoclopramide HCl [Reglan] 5 mg PO HS 01/22/18 06/16/21 Metoprolol Succinate [Toprol XL] 50 mg PO DAILY 01/22/18 06/16/21 Nitroglycerin Sl Tabs [Nitrostat] 0.4 mg PO Q5M PRN 01/22/18 06/16/21 Zinc 50 mg PO DAILY 03/04/18 06/16/21 rOPINIRole HCL [Requip] 2 mg PO BID 03/21/18 06/16/21 Furosemide [Lasix] 20 mg PO DAILY 05/29/18 06/16/21 Lisinopril [Zestril] 10 mg PO DAILY 09/03/18 06/16/21 Amitriptyline HCl [Elavil] 75 mg PO HS 06/16/21 06/16/21 Benzonatate [Tessalon Perles] 100 mg PO TID PRN 06/16/21 06/16/21 Calcium Carb-Vit D 250Mg-125Un 1 tab PO DAILY 06/16/21 06/16/21 [Oscal 250+D 3.125 Mcg (125 Iu)] Famotidine 20 mg PO BID 06/16/21 06/16/21 Magnesium 250 mg PO HS 06/16/21 06/16/21 Pregabalin [Lyrica] 200 mg PO BID 06/16/21 06/16/21 Rizatriptan Benzoate [Rizatriptan] 10 mg PO BID PRN 06/16/21 06/16/21 Rosuvastatin Calcium [Crestor] 40 mg PO HS 06/16/21 06/16/21 SUMAtriptan SUCCINATE [Imitrex] 100 mg PO BID PRN 06/16/21 06/16/21 Topiramate [Topamax] 100 mg PO DAILY 06/16/21 06/16/21 Previous Rx's Medication Instructions Recorded Acetaminophen Tab [Tylenol] 1,000 mg PO Q6HR PRN #30 tablet 06/22/21 Ergocalciferol [Vitamin D2 (1250 50,000 unit PO WEEKLY #12 capsule 06/22/21 Mcg = 28322 Iu)] Clindamycin [Cleocin] 450 mg PO Q6H #120 cap 06/25/21 Nitrofurantoin Monohyd/M-Cryst 100 mg PO Q12HR #14 cap 07/12/21 [Macrobid] Ondansetron [Zofran ODT] 4 mg PO Q8HR #20 tab 07/12/21 Allergies Allergy/AdvReac Type Severity Reaction Status Date / Time Sulfa (Sulfonamide Allergy Severe Anaphylaxis Verified 07/18/21 16:19 Antibiotics) adhesive tape Allergy BLISTERS Verified 07/18/21 16:19 amoxicillin [From Augmentin] Allergy Rash/Hives Verified 07/18/21 16:19 clavulanic acid Allergy Rash/Hives Verified 07/18/21 16:19 [From Augmentin] codeine Allergy ABDOMINAL Verified 07/18/21 16:19 PAIN, MIGRAINE HEADACHE Iodinated Contrast Media Allergy Itching Verified 07/18/21 16:19 [Iodinated Contrast- Oral and IV Dye] morphine Allergy Itching Verified 07/18/21 16:19 Penicillins Allergy Rash/Hives/Itching/Gi Verified 07/18/21 16:19 Upset adhesive AdvReac Itching Verified 07/18/21 16:19 artificial sweetners Allergy Nausea, Uncoded 07/18/21 12:25 MIGRAINE HEADACHE Review of Systems ROS Statement: Those systems with pertinent positive or pertinent negative responses have been documented in the HPI. ROS Other: All systems not noted in ROS Statement are negative. Past Medical History Past Medical History: Asthma, Blood Disorder, Chest Pain / Angina, COPD, Diabetes Mellitus, Fibromyalgia, GERD/Reflux, Hearing Disorder / Deafness, Hyperlipidemia, Hypertension, Liver Disease, Mitral Valve Prolapse (MVP), Musculoskeletal Disorder, Osteoarthritis (OA), Pneumonia, Respiratory Disorder, Sleep Apnea/CPAP/BIPAP Additional Past Medical History / Comment(s): MIGRAINES, DEGENERATIVE DISC DISEASE, FATTY LIVER, LEIDEN FACTOR 5, OCCASIONAL SWELLING IN LOWER EXT.NEUROPATHY, RLS, diabetes is in remission since surgery, chronic back pain, PATIENT HAS BEEN OFF MEDS FOR DIABETES SINCE BARIATRIC SURGERY History of Any Multi-Drug Resistant Organisms: ESBL Date of last positivie culture/infection: 09/15/18 MDRO Source:: ESBL URINE Past Surgical History: Adenoidectomy, Appendectomy, Bariatric Surgery, Bowel Resection, Breast Surgery, Section, Cholecystectomy, Ear Surgery, Heart Catheterization, Hernia Repair, Orthopedic Surgery, Tonsillectomy Additional Past Surgical History / Comment(s): ARTHROSCOPY RT KNEE X3, RT BREAST BX-NEG, (13) MYRINGOTOMYS. laparoscopic danielle-en-y with lysis of adhesions 2014; Surgical wound debridement x3 ; SX TO REMOVED SCAR TISSUE FROM PREVIOUS ABD SX;EGD ; LAP EXAM- APPY SMALL BOWEL OBSTRUCTION LYSIS OFF ADHESIONS, 3 hernia repairs, 3 bowel resection, 07/2016 colon resection, adhesions removed 03/2018 Past Anesthesia/Blood Transfusion Reactions: No Reported Reaction Additional Past Anesthesia/Blood Transfusion Reaction / Comment(s): SEVERE HEADACHE AFTER LAST SCOPE, clausterphobia Past Psychological History: Anxiety, Bipolar, Depression, PTSD Smoking Status: Never smoker Past Alcohol Use History: Occasional Past Drug Use History: Marijuana - Past Family History Mother Family Medical History: Deep Vein Thrombosis (DVT), Hypertension, Pulmonary Embolus, Thyroid Disorder Additional Family Medical History / Comment(s): FACTOR 5 LEIDEN, MVP Father Family Medical History: Diabetes Mellitus, Hypertension, Myocardial Infarction ([place]) Additional Family Medical History / Comment(s): AGE 59 [place] General Exam Limitations: no limitations Course Vital Signs 07/18/21 07/18/21 12:23 16:30 Temperature 98.6 F 97.8 F Pulse Rate 81 72 Respiratory 20 18 Rate Blood Pressure 193/86 153/84 O2 Sat by Pulse 96 98 Oximetry Medical Decision Making - Lab Data Result diagrams: 07/18/21 15:30 07/18/21 15:30 Disposition Clinical Impression: Abdominal pain Disposition: ADMITTED IP TO THIS [facility] Condition: Fair
--- NOTE | 2021-07-18 14:49 | XR ---
EXAMINATION TYPE: XR abdomen 1V DATE OF EXAM: 07/18/2021 2:39 PM CLINICAL HISTORY: Abdominal pain. TECHNIQUE: Two Upright KUB images of the abdomen are obtained. COMPARISON: CT abdomen and pelvis 6 days ago. FINDINGS: Scattered gas is seen in non-distended scattered small bowel loops. Single gas prominent pushpa wel loop in the upper to mid abdomen. Gas and fecal material is seen in non-distended colon along the periphery. Cholecystectomy clips are redemonstrated. Surgical clips in the left mid to lower abdomen are redemonstrated. Surgical changes epigastric region from gastric bypass procedure are redemonstra natali. Lung bases are clear. No free air. Left-sided pelvic phleboliths. [id number] axial joint s pace loss in both hips. IMPRESSION: Overall nonspecific favor nonobstructive bowel gas pattern.
[2021-07-18] MEDS ORDERED: NALOXONE 0.4 MG/ML 1 ML VIAL IV PRN (15:27)
[2021-07-18 15:52] LABS: Basophils # (A) 0.1 k/uL (0-0.2); Basophils % (A) 1 %; Eosinophils # (A) 0.1 k/uL (0-0.7); Eosinophils % (A) 1 %; HCT 38.9 % (34.0-46.0); HGB 12.5 gm/dL (11.4-16.0); Lymphocytes # (A) 1.6 k/uL (1.0-4.8); Lymphocytes % (A) 19 %; MCH 29.3 pg (25.0-35.0); MCHC 32.2 g/dL (31.0-37.0); MCV 90.8 fL (80.0-100.0); Mean Platelet Volume 7.5; Monocytes # (A) 0.3 k/uL (0-1.0); Monocytes % (A) 4 %; Neutrophils # (A) 6.1 k/uL (1.3-7.7); Neutrophils % (A) 73 %; Platelet Count 212 k/uL (150-450); RBC 4.28 m/uL (3.80-5.40); RDW 13.7 % (11.5-15.5); WBC 8.3 k/uL (3.8-10.6)
[2021-07-18 16:04] LABS: ALT 21 U/L (4-34); AST 28 U/L (14-36); African American GFR (CKD) >90 (>60 ml/min/1.73 sqM); Albumin 4.2 g/dL (3.5-5.0); Alkaline Phosphatase 135 U/L (38-126); Anion Gap 7 mmol/L; Blood Urea Nitrogen 9 mg/dL (7-17); Carbon Dioxide 27 mmol/L (22-30); Chloride 101 mmol/L (98-107); Glucose 134 mg/dL (74-99); Non-African American GFR(CKD) >90 (>60 ml/min/1.73 sqM); Potassium 4.2 mmol/L (3.5-5.1); Sodium 135 mmol/L (137-145); Total Bilirubin 1.3 mg/dL (0.2-1.3); Total Protein 6.8 g/dL (6.3-8.2)
[2021-07-18] MEDS: SODIUM CHLORIDE 0.9% 1,000 ML IV SCH ×2 (16:14→23:37)
[2021-07-18 16:15] LABS: INR 0.9 (<1.2); Partial Thromboplastin Time 21.5 sec (22.0-30.0); Prothrombin Time 10.2 sec (9.0-12.0)
[2021-07-18] MEDS: ONDANSETRON 4 MG/2 ML VIAL IVP PRN ×2 (16:21→23:38)
[2021-07-18] MEDS: HYDROmorphone 0.5 MG/0.5 ML SYRINGE IVP PRN (22:11)
[2021-07-19] MEDS: HYDROmorphone 0.5 MG/0.5 ML SYRINGE IVP PRN ×4 (01:34→18:32)
[2021-07-19] MEDS: ONDANSETRON 4 MG/2 ML VIAL IVP PRN (07:57)
[2021-07-19] MEDS: PANTOPRAZOLE 40 MG/10 ML VIAL IV SCH (07:59)
[2021-07-19] MEDS ORDERED: PEG 3350-NA SULF,BICARB,CL/KCL 4,000 ML BOTTLE PO ONE (08:40)
[2021-07-19] MEDS ORDERED: NA PHOS,M-B/NA PHOS,DI-BA 133 ML ENEMA RECTAL ONE (08:41)
[2021-07-19] MEDS ORDERED: SODIUM CHLORIDE 0.9% 2,000 ML IV ONE (08:43)
--- NOTE | 2021-07-19 08:44 | P.GSHP ---
History of Present Illness H&P Date: 07/18/21 Patient seen and evaluated. Patient reports recurrent sigmoid volvulus. Recommend enema. Colonoscopy decompression described. May need urgent colectomy Past Medical History Past Medical History: Asthma, Blood Disorder, Chest Pain / Angina, COPD, Diabetes Mellitus, Fibromyalgia, GERD/Reflux, Hearing Disorder / Deafness, Hyperlipidemia, Hypertension, Liver Disease, Mitral Valve Prolapse (MVP), Musculoskeletal Disorder, Osteoarthritis (OA), Pneumonia, Respiratory Disorder, Sleep Apnea/CPAP/BIPAP Additional Past Medical History / Comment(s): MIGRAINES, DEGENERATIVE DISC DISEASE, FATTY LIVER, LEIDEN FACTOR 5, OCCASIONAL SWELLING IN LOWER EXT.NEUROPATHY, RLS, diabetes is in remission since surgery, chronic back pain, PATIENT HAS BEEN OFF MEDS FOR DIABETES SINCE BARIATRIC SURGERY History of Any Multi-Drug Resistant Organisms: ESBL Date of last positivie culture/infection: 09/15/18 MDRO Source:: ESBL URINE Past Surgical History: Adenoidectomy, Appendectomy, Bariatric Surgery, Bowel Resection, Breast Surgery, Section, Cholecystectomy, Ear Surgery, Heart Catheterization, Hernia Repair, Orthopedic Surgery, Tonsillectomy Additional Past Surgical History / Comment(s): ARTHROSCOPY RT KNEE X3, RT BREAST BX-NEG, (13) MYRINGOTOMYS. laparoscopic danielle-en-y with lysis of adhesions 2013; Surgical wound debridement x3 ; SX TO REMOVED SCAR TISSUE FROM PREVIOUS ABD SX;EGD ; LAP EXAM- APPY SMALL BOWEL OBSTRUCTION LYSIS OFF ADHESIONS, 3 hernia repairs, 4 bowel resection, 07/2016 colon resection, adhesions removed 03/2018 Past Anesthesia/Blood Transfusion Reactions: No Reported Reaction Additional Past Anesthesia/Blood Transfusion Reaction / Comment(s): SEVERE HEADACHE AFTER LAST SCOPE, clausterphobia Past Psychological History: Anxiety, Bipolar, Depression, PTSD Additional Psychological History / Comment(s): SOCIAL PHOBIA. pt lives with special needs son. has cpap machine and cane that she uses as needed Smoking Status: Never smoker Past Alcohol Use History: Occasional Additional Past Alcohol Use History / Comment(s): OCC CIG USE IN PAST age 20 to age 21- ONE CIG PER MONTH OR LESS Past Drug Use History: Marijuana - Past Family History Mother Family Medical History: Deep Vein Thrombosis (DVT), Hypertension, Pulmonary Embolus, Thyroid Disorder Additional Family Medical History / Comment(s): FACTOR 5 LEIDEN, MVP Father Family Medical History: Diabetes Mellitus, Hypertension, Myocardial Infarction ([place]) Additional Family Medical History / Comment(s): AGE 59 [place] Medications and Allergies Home Medications Medication Instructions Recorded Confirmed Type Cyclobenzaprine [Flexeril] 10 mg PO BID PRN 08/05/16 07/18/21 History Ferrous Sulfate [Feosol] 325 mg PO HS 01/22/18 07/18/21 History Metoclopramide HCl [Reglan] 5 mg PO HS PRN 01/22/18 07/18/21 History Metoprolol Succinate [Toprol XL] 50 mg PO HS 01/22/18 07/18/21 History Nitroglycerin Sl Tabs [Nitrostat] 0.4 mg PO Q5M PRN 01/22/18 07/18/21 History Zinc 50 mg PO HS 03/04/18 07/18/21 History rOPINIRole HCL [Requip] 2 mg PO BID 03/21/18 07/18/21 History Furosemide [Lasix] 20 mg PO HS 05/29/18 07/18/21 History Lisinopril [Zestril] 10 mg PO HS 09/03/18 07/18/21 History Amitriptyline HCl [Elavil] 75 mg PO HS 06/16/21 07/18/21 History Benzonatate [Tessalon Perles] 100 mg PO TID PRN 06/16/21 07/18/21 History Calcium Carb-Vit D 250Mg-125Un 1 tab PO HS 06/16/21 07/18/21 History [Oscal 250+D 3.125 Mcg (125 Iu)] Famotidine 20 mg PO BID 06/16/21 07/18/21 History Magnesium 250 mg PO HS 06/16/21 07/18/21 History Pregabalin [Lyrica] 200 mg PO BID 06/16/21 07/18/21 History Rizatriptan Benzoate [Rizatriptan] 10 mg PO BID PRN 06/16/21 07/18/21 History Rosuvastatin Calcium [Crestor] 40 mg PO HS 06/16/21 07/18/21 History SUMAtriptan SUCCINATE [Imitrex] 100 mg PO BID PRN 06/16/21 07/18/21 History Topiramate [Topamax] 100 mg PO HS 06/16/21 07/18/21 History Acetaminophen Tab [Tylenol] 1,000 mg PO Q6HR PRN #30 tablet 06/22/21 07/18/21 Rx Ergocalciferol [Vitamin D2 (1250 50,000 unit PO MO@2100 07/18/21 07/18/21 History Mcg = 31192 Iu)] Fluticasone Nasal [place] [Flonase 1 spray EA NOSTRIL Q12H PRN 07/18/21 07/18/21 History Nasal [place]] Ondansetron [Zofran ODT] 4 mg PO Q8HR PRN 07/18/21 07/18/21 History Simethicone 40 mg/0.6 ml Drops 100 mg PO QID PRN 07/18/21 07/18/21 History [Mylicon Drops] Allergies Allergy/AdvReac Type Severity Reaction Status Date / Time Sulfa (Sulfonamide Allergy Severe Anaphylaxis Verified 07/18/21 16:19 Antibiotics) adhesive tape Allergy BLISTERS Verified 07/18/21 16:19 amoxicillin [From Augmentin] Allergy Rash/Hives Verified 07/18/21 16:19 clavulanic acid Allergy Rash/Hives Verified 07/18/21 16:19 [From Augmentin] codeine Allergy ABDOMINAL Verified 07/18/21 16:19 PAIN, MIGRAINE HEADACHE Iodinated Contrast Media Allergy Itching Verified 07/18/21 16:19 [Iodinated Contrast- Oral and IV Dye] morphine Allergy Itching Verified 07/18/21 16:19 Penicillins Allergy Rash/Hives/Itching/Gi Verified 07/18/21 16:19 Upset adhesive AdvReac Itching Verified 07/18/21 16:19 artificial sweetners Allergy Nausea, Uncoded 07/18/21 12:25 MIGRAINE HEADACHE Surgical - Exam Vital Signs Temp Pulse Resp BP Pulse Ox 98.6 F 81 20 193/86 96 07/18/21 12:23 07/18/21 12:23 07/18/21 12:23 07/18/21 12:23 07/18/21 12:23 Results - Labs 07/18/21 15:30 07/18/21 15:30 Abnormal Lab Results - Last 24 Hours (Table) 07/18/21 07/18/21 Range/Units 15:30 15:30 APTT 21.5 L (22.0-30.0) sec Sodium 135 L (137-145) mmol/L Glucose 134 H (74-99) mg/dL Alkaline Phosphatase 135 H (38-126) U/L Diabetes panel 07/18/21 Range/Units 15:30 Sodium 135 L (137-145) mmol/L Potassium 4.2 (3.5-5.1) mmol/L Chloride 101 (98-107) mmol/L Carbon Dioxide 27 (22-30) mmol/L BUN 9 (7-17) mg/dL Creatinine 0.54 (0.52-1.04) mg/dL Glucose 134 H (74-99) mg/dL Calcium 9.0 (8.4-10.2) mg/dL AST 28 (14-36) U/L ALT 21 (4-34) U/L Alkaline Phosphatase 135 H (38-126) U/L Total Protein 6.8 (6.3-8.2) g/dL Albumin 4.2 (3.5-5.0) g/dL Calcium panel 07/18/21 Range/Units 15:30 Calcium 9.0 (8.4-10.2) mg/dL Albumin 4.2 (3.5-5.0) g/dL Pituitary panel 07/18/21 Range/Units 15:30 Sodium 135 L (137-145) mmol/L Potassium 4.2 (3.5-5.1) mmol/L Chloride 101 (98-107) mmol/L Carbon Dioxide 27 (22-30) mmol/L BUN 9 (7-17) mg/dL Creatinine 0.54 (0.52-1.04) mg/dL Glucose 134 H (74-99) mg/dL Calcium 9.0 (8.4-10.2) mg/dL Adrenal panel 07/18/21 Range/Units 15:30 Sodium 135 L (137-145) mmol/L Potassium 4.2 (3.5-5.1) mmol/L Chloride 101 (98-107) mmol/L Carbon Dioxide 27 (22-30) mmol/L BUN 9 (7-17) mg/dL Creatinine 0.54 (0.52-1.04) mg/dL Glucose 134 H (74-99) mg/dL Calcium 9.0 (8.4-10.2) mg/dL Total Bilirubin 1.3 (0.2-1.3) mg/dL AST 28 (14-36) U/L ALT 21 (4-34) U/L Alkaline Phosphatase 135 H (38-126) U/L Total Protein 6.8 (6.3-8.2) g/dL Albumin 4.2 (3.5-5.0) g/dL
[2021-07-19] MEDS ORDERED: SCOPOLAMINE 1 MG/72 HR PATCH TRANSDERM SCH (09:00)
[2021-07-19] MEDS: ONDANSETRON 4 MG/2 ML VIAL IVP SCH ×3 (11:22→20:58)
[2021-07-19] MEDS ORDERED: TRIMETHOBENZAMIDE 100 MG/ML 2 ML VIAL IM PRN (13:01)
--- NOTE | 2021-07-19 15:06 | P.PN ---
Subjective Progress Note Date: 07/19/21 CHIEF COMPLAINT: Abdominal pain HISTORY OF PRESENT ILLNESS: Patient presents with abdominal pain and evidence of recurrent sigmoid volvulus. Patient scheduled for colonoscopy for decompression tomorrow. Patient complains of left-sided abdominal pain. She has been having nausea and vomiting. She did have a low-grade temp of 99.1 white count normal at 8.3. Patient did receive a Fleet enema and his been started on GoLYTELY prep. She did report bowel movements. PHYSICAL EXAM: VITAL SIGNS: Reviewed GENERAL: Well-developed in no acute distress. HEENT: No sclera icterus. Extraocular movements grossly intact. Moist buccal mucosa. Head is atraumatic, normocephalic. Hears conversational speech. No nasal drainage. NECK: Supple without lymphadenopathy. CHEST: Non-labored respirations and equal bilateral excursions. CARDIOVASCULAR: Palpable 2+ radial pulses. ABDOMEN: Soft. Nondistended. Tenderness to palpation of abdomen MUSCULOSKELETAL: No clubbing or cyanosis. NEUROLOGIC: No focal or lateralizing signs. Cranial nerves II through XII grossly intact. PSYCH: Appropriate affect. Alert and oriented to person, place and time. SKIN: Well perfused. Good skin turgor. ASSESSMENT: 1. Recurrent sigmoid volvulus 2. Abdominal pain with nausea and vomiting PLAN: -Patient scheduled for colonoscopy for decompression tomorrow, 07/20/[address] Dumont -Keep patient nothing by mouth after midnight -Clear liquid diet for today -Patient started on GoLYTELY prep -Also will be given one Liter soapsud enema -Tigan added for nausea as needed -Continue scopolamine patch and Zofran -Continue IV fluids Physician Pick Up note has been reviewed by physician. Signing provider agrees with the documented findings, assessment, and plan of care. Objective - Vital Signs Vital signs: Vital Signs Temp 98.6 F 07/19/21 12:00 Pulse 64 07/19/21 12:00 Resp 15 07/19/21 12:00 BP 174/79 07/19/21 12:00 Pulse Ox 96 07/19/21 12:00 FiO2 Intake & Output 07/18/21 07/19/21 07/19/21 18:59 06:59 18:59 Intake Total 0 1999 Balance 0 1999 Weight 107.501 kg 107.501 kg Intake: Intake, IV Titration 2000 Amount Sodium Chloride 0.9% 1, 1999 000 ml @ 999 mls/hr IV . Q1H1M STA Rx#:[id number] Oral 0 Other: # Voids 2 - Labs CBC & Chem 7: 07/18/21 15:30 07/18/21 15:30 Labs: Abnormal Lab Results - Last 24 Hours (Table) 07/18/21 07/18/21 Range/Units 15:30 15:30 APTT 21.5 L (22.0-30.0) sec Sodium 135 L (137-145) mmol/L Glucose 134 H (74-99) mg/dL Alkaline Phosphatase 135 H (38-126) U/L
[2021-07-19] MEDS: SODIUM CHLORIDE 0.9% 1,000 ML IV SCH ×2 (15:32→19:33)
--- NOTE | 2021-07-19 17:42 | P.PN ---
Progress Note - Text Progress Note Date: 07/19/21 Patient reevaluated this evening. She is having multiple bowel movements. Her abdominal pain is improving. Scheduled for colonoscopy tomorrow for decompression sigmoid volvulus.
[2021-07-19] MEDS: METOCLOPRAMIDE 5 MG/ML 2 ML VIAL IVP PRN (19:33)
[2021-07-20] MEDS: HYDROmorphone 0.5 MG/0.5 ML SYRINGE IVP PRN ×3 (02:58→15:32)
[2021-07-20] MEDS: SODIUM CHLORIDE 0.9% 1,000 ML IV SCH ×3 (03:00→12:29)
[2021-07-20] MEDS: ONDANSETRON 4 MG/2 ML VIAL IVP SCH ×3 (03:00→15:33)
[2021-07-20] MEDS: METOCLOPRAMIDE 5 MG/ML 2 ML VIAL IVP PRN (04:39)
[2021-07-20] MEDS: PANTOPRAZOLE 40 MG/10 ML VIAL IV SCH (09:47)
[2021-07-20 11:52] VITALS: BP 172/93; PULSE 66; RESP 15; TEMP 98.8
[2021-07-20] MEDS ORDERED: PROPOFOL 10 MG/ML 20 ML VIAL IV ONE (14:16)
[2021-07-20] MEDS ORDERED: LIDOCAINE 2% INJ 20 MG/ML (2 ML VIAL) ONE (14:16)
--- NOTE | 2021-07-20 14:54 | P.PCN ---
Date of Procedure: 07/20/21 Description of Procedure: PREOPERATIVE DIAGNOSIS: Bowel obstruction Sigmoid volvulus POSTOPERATIVE DIAGNOSIS: Bowel obstruction Sigmoid volvulus OPERATION: Colonoscopy with decompression for sigmoid volvulus SURGEON: Latricia Dumont MD. ANESTHESIA: MAC. INDICATIONS: The patient is a 51-year-old female who presents recurrent sigmoid volvulus and obstipation bowel obstruction. Benefits and risks were described and informed consent was obtained. DESCRIPTION OF PROCEDURE: The patient had Nulytely prep. The patient had been brought into the operating room and laid in the left lateral decubitus position. After adequate intravenous sedation, the rectum was examined with 2% lidocaine jelly. No external hemorrhoids were encountered. The rectal tone was within normal limits. No lesions were palpated in the rectal vault. An Olympus colonoscope was advanced to the ascending colon. The sigmoid colon was highly redundant. No scattered diverticulosis was encountered. The prep was good. No colonic polyps were found. Retroflexion of the scope demonstrated grade 2 internal hemorrhoids without active bleeding or inflammation. The colon was desufflated. The patient had tolerated the procedure well. Withdrawal time was over 6 minutes. FINDINGS: Aronchick preparation quality scale 2 (1-5) Internal hemorrhoids, grade 2 No external prolapsed hemorrhoids. No arteriovenous malformations. No adenomatous polyps. No focal colitis. Decompression of sigmoid volvulus RECOMMENDATIONS: 1. Recommend semiurgent sigmoid colectomy
[2021-07-20] MEDS ORDERED: SUMAtriptan succinate 50 MG TAB PO PRN (15:11)
[2021-07-20] MEDS ORDERED: SUMATRIPTAN SUCCINATE 100 MG PO PRN (15:11)
[2021-07-20] MEDS ORDERED: FLUTICASONE 50MCG/SPRAY NASAL 16GM EA NOSTRIL PRN (15:11)
[2021-07-20] MEDS ORDERED: CYCLOBENZAPRINE 10 MG TAB PO PRN (15:11)
[2021-07-20] MEDS ORDERED: BENZONATATE 100 MG CAP PO PRN (15:11)
[2021-07-20] MEDS ORDERED: NITROGLYCERIN SL TABS 0.4 MG TAB SUBLINGUAL PRN (15:11)
[2021-07-20] MEDS ORDERED: SIMETHICONE 40 MG/0.6 ML DROPS 2,000 MG/30 ML BOTTLE PO PRN (15:11)
[2021-07-20] MEDS ORDERED: DICYCLOMINE 10 MG CAP PO SCH (18:00)
--- NOTE | 2021-07-20 18:49 | P.DS ---
Providers Date of admission: 07/18/21 15:27 Expected date of discharge: 07/20/21 Attending physician: Latricia Dumont Primary care physician: Physician [facility] Course: Patient seen and evaluated this evening. Abdominal pain moderately improved following decompression. Patient tolerating liquid diet. Anticipated colectomy next week reviewed. Bowel prep instructions reviewed. Medication Bentyl reviewed and prescribed. Patient Condition at Discharge: Fair Plan - Discharge Summary New Discharge Prescriptions: New Dicyclomine [Bentyl] 10 mg PO QID #60 capsule Continue Cyclobenzaprine [Flexeril] 10 mg PO BID PRN PRN Reason: Muscle Pain Nitroglycerin Sl Tabs [Nitrostat] 0.4 mg PO Q5M PRN PRN Reason: Chest Pain Metoprolol Succinate [Toprol XL] 50 mg PO HS Metoclopramide HCl [Reglan] 5 mg PO HS PRN PRN Reason: Nausea Ferrous Sulfate [Feosol] 325 mg PO HS Zinc 50 mg PO HS rOPINIRole HCL [Requip] 2 mg PO BID Furosemide [Lasix] 20 mg PO HS Lisinopril [Zestril] 10 mg PO HS Topiramate [Topamax] 100 mg PO HS Pregabalin [Lyrica] 200 mg PO BID Simethicone 40 mg/0.6 ml Drops [Mylicon Drops] 100 mg PO QID PRN PRN Reason: GAS/BLOATING Fluticasone Nasal [place] [Flonase Nasal [place]] 1 spray EA NOSTRIL Q12H PRN PRN Reason: Allergy Symptoms Rosuvastatin Calcium [Crestor] 40 mg PO HS SUMAtriptan SUCCINATE [Imitrex] 100 mg PO BID PRN PRN Reason: Migraine Headache Rizatriptan Benzoate [Rizatriptan] 10 mg PO BID PRN PRN Reason: Migraine Headache Magnesium 250 mg PO HS Famotidine 20 mg PO BID Calcium Carb-Vit D 250Mg-125Un [Oscal 250+D 3.125 Mcg (125 Iu)] 1 tab PO HS Benzonatate [Tessalon Perles] 100 mg PO TID PRN PRN Reason: Cough Amitriptyline HCl [Elavil] 75 mg PO HS Acetaminophen Tab [Tylenol] 1,000 mg PO Q6HR PRN #30 tablet PRN Reason: Pain Ondansetron [Zofran ODT] 4 mg PO Q8HR PRN PRN Reason: Nausea Discontinued Ergocalciferol [Vitamin D2 (1250 Mcg = 00103 Iu)] 50,000 unit PO MO@2100 Discharge Medication List Cyclobenzaprine [Flexeril] 10 mg PO BID PRN 08/05/16 [History] Ferrous Sulfate [Feosol] 325 mg PO HS 01/22/18 [History] Metoclopramide HCl [Reglan] 5 mg PO HS PRN 01/22/18 [History] Metoprolol Succinate [Toprol XL] 50 mg PO HS 01/22/18 [History] Nitroglycerin Sl Tabs [Nitrostat] 0.4 mg PO Q5M PRN 01/22/18 [History] Zinc 50 mg PO HS 03/04/18 [History] rOPINIRole HCL [Requip] 2 mg PO BID 03/21/18 [History] Furosemide [Lasix] 20 mg PO HS 05/29/18 [History] Lisinopril [Zestril] 10 mg PO HS 09/03/18 [History] Amitriptyline HCl [Elavil] 75 mg PO HS 06/16/21 [History] Benzonatate [Tessalon Perles] 100 mg PO TID PRN 06/16/21 [History] Calcium Carb-Vit D 250Mg-125Un [Oscal 250+D 3.125 Mcg (125 Iu)] 1 tab PO HS 06/16/21 [History] Famotidine 20 mg PO BID 06/16/21 [History] Magnesium 250 mg PO HS 06/16/21 [History] Pregabalin [Lyrica] 200 mg PO BID 06/16/21 [History] Rizatriptan Benzoate [Rizatriptan] 10 mg PO BID PRN 06/16/21 [History] Rosuvastatin Calcium [Crestor] 40 mg PO HS 06/16/21 [History] SUMAtriptan SUCCINATE [Imitrex] 100 mg PO BID PRN 06/16/21 [History] Topiramate [Topamax] 100 mg PO HS 06/16/21 [History] Acetaminophen Tab [Tylenol] 1,000 mg PO Q6HR PRN #30 tablet 06/22/21 [Rx] Fluticasone Nasal [place] [Flonase Nasal [place]] 1 spray EA NOSTRIL Q12H PRN 07/18/21 [History] Ondansetron [Zofran ODT] 4 mg PO Q8HR PRN 07/18/21 [History] Simethicone 40 mg/0.6 ml Drops [Mylicon Drops] 100 mg PO QID PRN 07/18/21 [History] Dicyclomine [Bentyl] 10 mg PO QID #60 capsule 07/20/21 [Rx] Follow up Appointment(s)/Referral(s): None,Stated [REFERRING] - 1-2 days Patient Instructions/Handouts: Full Liquid Diet (DC) Activity/Diet/Wound Care/Special Instructions: Continue full liquid diet including Gas-X. New prescription of Bentyl prescribed. Take bowel prep on Saturday prior to coming to the hospital next Saturday. Discharge Disposition: HOME SELF-CARE
[2021-07-20] MEDS ORDERED: TOPIRAMATE 100 MG TAB PO SCH (21:00)
[2021-07-20] MEDS ORDERED: lisinopriL 10 MG TAB PO SCH (21:00)
[2021-07-20] MEDS ORDERED: MAGNESIUM OXIDE 400 MG TAB PO SCH (21:00)
[2021-07-20] MEDS ORDERED: AMITRIPTYLINE HCL 25 MG TAB PO SCH (21:00)
[2021-07-20] MEDS ORDERED: PREGABALIN 100 MG CAP PO SCH (21:00)
[2021-07-20] MEDS ORDERED: FUROSEMIDE 20 MG TAB PO SCH (21:00)
[2021-07-20] MEDS ORDERED: METOPROLOL SUCCINATE (ER) 50 MG TAB.ER.24H PO SCH (21:00)
== END 2021-07-20 20:50 | disposition home or self-care (01) | DRG 389 ==
LOC: EC 11:59 → 4SSUR 15:27 → 5NMEDONC 22:06
PROVIDERS: ADMIT Surgery Plastic and Reconstructive Surgery; ATTEND Surgery Plastic and Reconstructive Surgery
PROC: 0D7N8ZZ Dilation of Sigmoid Colon, Via Natural or Artificial Opening Endoscopic (ICD-10-PCS; principal; 2021-07-20 10:50)
DX: K56.2 Volvulus (principal); D68.51 Activated protein C resistance; F31.9 Bipolar disorder, unspecified; E78.5 Hyperlipidemia, unspecified; E11.40 Type 2 diabetes mellitus with diabetic neuropathy, unspecified; F43.10 Post-traumatic stress disorder, unspecified; G25.81 Restless legs syndrome; G43.909 Migraine, unspecified, not intractable, without status migrainosus; H91.90 Unspecified hearing loss, unspecified ear; I10 Essential (primary) hypertension; I34.1 Nonrheumatic mitral (valve) prolapse; J44.9 Chronic obstructive pulmonary disease, unspecified; K64.8 Other hemorrhoids; K21.9 Gastro-esophageal reflux disease without esophagitis; G47.30 Sleep apnea, unspecified; K76.0 Fatty (change of) liver, not elsewhere classified; M79.7 Fibromyalgia; Z79.899 Other long term (current) drug therapy; Z82.49 Family history of ischemic heart disease and other diseases of the circulatory system; Z83.3 Family history of diabetes mellitus; Z88.5 Allergy status to narcotic agent; Z88.0 Allergy status to penicillin; Z88.2 Allergy status to sulfonamides; Z91.041 Radiographic dye allergy status; Z87.440 Personal history of urinary (tract) infections; Z83.2 Family history of diseases of the blood and blood-forming organs and certain disorders involving the immune mechanism; Z83.49 Family history of other endocrine, nutritional and metabolic diseases; Z87.01 Personal history of pneumonia (recurrent); Z98.84 Bariatric surgery status; G89.29 Other chronic pain; M54.9 Dorsalgia, unspecified; Z98.891 History of uterine scar from previous surgery; Z98.890 Other specified postprocedural states; Z91.048 Other nonmedicinal substance allergy status; Z80.8 Family history of malignant neoplasm of other organs or systems
CPT/HCPCS: 45393; 74018; 80053; 85025; 85610; 85730; 93005; 96361; 96374; 96375; 96376; 99285

== ENCOUNTER 2021-07-26 08:58 | Inpatient (IN) | payer BC, MEDICARE, OTHER ==
[2021-07-25 10:13] VITALS: BMI 46.3
[~2021-07-26 08:58] MED LIST changes: -LACTATED RINGERS 1,000 ML IV SCH; +LIDOCAINE 1% (10MG/ML) FOR IV START INTRADERMA PRN; -LIDOCAINE 1% 20 ML VIAL (10MG/ML) FOR IV START INTRADERMA PRN; -MIDAZOLAM 2 MG/2 ML VIAL IV PRN
--- NOTE | 2021-07-26 09:48 | P.GSHP ---
History of Present Illness H&P Date: 07/26/21 CHIEF COMPLAINT: Sigmoid volvulus HISTORY OF PRESENT ILLNESS: The patient is a 51-year-old female presents with intractable down pain due to sigmoid volvulus. She has required multiple colonoscopies for colonic decompression. She presents today for colonic decompression followed by sigmoid colectomy for recurrent sigmoid volvulus. Her highest weight for a 5-foot, 0-inch frame was 310 pounds. [place] body weight is 127 pounds. Body mass index was 60.7 now 46.9. Today she comes weighing 239 pounds from 232 pounds, 3 months ago. She has gained 8 pounds. Total lifetime weight loss of 71 pounds. Percent excess weight loss is 39 %. PAST MEDICAL HISTORY: 1. Morbid obesity due to excess calories, BMI initial 60.7 2. Obstructive sleep apnea. 3. Asthma. 4. Osteoarthritis. 5. Depressive disorder 6. Fibromyalgia. 7. Gastroesophageal reflux disease. 8. Diabetes type 2 mellitus 9. Hypertensive heart disease 10. Dyslipidemia. 11. Bilateral lower extremity edema. 12. Polycystic ovarian syndrome. 13. Restless leg syndrome. 14. History of MRSA 15. Cardiomyopathy. 16. Anxiety. 17. Neuropathy 18. Chronic sinusitis. 19. Panniculitis. 20. Factor V Leiden 21. Migraine 22. Obstructive sleep apnea 23. Fatty liver disease 24. Mitral valve prolapse 25. Angina 26. Chronic obstructive pulmonary disease 27. Claustrophobia 28. Posttraumatic stress disorder 29. Iron deficiency anemia PAST SURGICAL HISTORY: 1. with complication of wound infection. 2. D&C. 3. Right breast biopsy. 4. Multiple myringotomy tubes. 5. Tonsillectomy. 6. Adenoidectomy. 7. Heart catheterization. 8. Laparoscopic cholecystectomy. 9. Upper endoscopy. 10. Multiple right knee arthroscopies. 11. Right knee surgery. 12. Gastric bypass, 2013. 13. 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 14. Multiple diagnostic laparoscopies with extensive lysis of adhesions, 2014. 15. Diagnostic laparoscopy with revision of gastrojejunostomy for intussusception, 2014. 16. Appendectomy 17. Cholecystectomy MEDICATIONS: Home Medications Medication Instructions Recorded Confirmed Cyclobenzaprine [Flexeril] 10 mg PO BID 08/05/16 06/16/21 Ferrous Sulfate [Feosol] 325 mg PO DAILY 01/22/18 06/16/21 Metoclopramide HCl [Reglan] 5 mg PO HS 01/22/18 06/16/21 Metoprolol Succinate [Toprol XL] 50 mg PO DAILY 01/22/18 06/16/21 Nitroglycerin Sl Tabs [Nitrostat] 0.4 mg PO Q5M PRN 01/22/18 06/16/21 Zinc 50 mg PO DAILY 03/04/18 06/16/21 rOPINIRole HCL [Requip] 2 mg PO BID 03/21/18 06/16/21 Furosemide [Lasix] 20 mg PO DAILY 05/29/18 06/16/21 Lisinopril [Zestril] 10 mg PO DAILY 09/03/18 06/16/21 Amitriptyline HCl [Elavil] 75 mg PO HS 06/16/21 06/16/21 Benzonatate [Tessalon Perles] 100 mg PO TID PRN 06/16/21 06/16/21 Calcium Carb-Vit D 250Mg-125Un 1 tab PO DAILY 06/16/21 06/16/21 [Oscal 250+D 3.125 Mcg (125 Iu)] Famotidine 20 mg PO BID 06/16/21 06/16/21 Magnesium 250 mg PO HS 06/16/21 06/16/21 Pregabalin [Lyrica] 200 mg PO BID 06/16/21 06/16/21 Rizatriptan Benzoate [Rizatriptan] 10 mg PO BID PRN 06/16/21 06/16/21 Rosuvastatin Calcium [Crestor] 40 mg PO HS 06/16/21 06/16/21 SUMAtriptan SUCCINATE [Imitrex] 100 mg PO BID PRN 06/16/21 06/16/21 Topiramate [Topamax] 100 mg PO DAILY 06/16/21 06/16/21 ALLERGIES: Allergies Allergy/AdvReac Type Severity Reaction Status Date / Time Sulfa (Sulfonamide Allergy Severe Anaphylaxis Verified 06/16/21 11:11 Antibiotics) adhesive tape Allergy BLISTERS Verified 06/16/21 11:11 amoxicillin [From Augmentin] Allergy Rash/Hives Verified 06/16/21 11:11 clavulanic acid Allergy Rash/Hives Verified 06/16/21 11:11 [From Augmentin] codeine Allergy ABDOMINAL Verified 06/16/21 11:11 PAIN, MIGRAINE HEADACHE Iodinated Contrast Media Allergy Itching Verified 06/16/21 11:11 [Iodinated Contrast- Oral and IV Dye] morphine Allergy Itching Verified 06/16/21 11:11 Penicillins Allergy Rash/Hives/Itching/Gi Verified 06/16/21 11:11 Upset adhesive AdvReac Itching Verified 06/16/21 11:11 artificial sweetners Allergy Nausea, Uncoded 06/16/21 11:11 MIGRAINE HEADACHE SOCIAL HISTORY: No active tobacco use. FAMILY HISTORY: Pertinent for bladder, breast, colon cancer and lymphoma, prostate cancer, stomach cancer, morbid obesity as well as factor V Leiden disease. REVIEW OF SYSTEMS: CONSTITUTIONAL: Her highest weight for a 5-foot, 0-inch frame was 310 pounds. [place] body weight is 127 pounds. Body mass index was 60.7. ENDOCRINE: No reports of checking her blood sugar glucose for prior history of insulin-dependent diabetes. MUSCULOSKELETAL: Has chronic and diffuse joint pain, including chronic pain syndrome. Has chronic lower back pain. NEURO: History of chronic pain syndrome. No stroke or seizure disorder. Has neuropathy. GASTROINTESTINAL: Has recurrent sigmoid volvulus regimen bowel obstruction. SKIN: Recurrent panniculitis, including ulcerations and tenderness from her pannus. She takes nystatin powder for control of her symptoms. CARDIOVASCULAR: History of angina. History of chest pain with multiple heart catheterizations. Has hypertensive heart disease. Has dyslipidemia. RESPIRATORY: History of asthma, bronchitis including obstructive sleep apnea. GENITOURINARY: History of irregular masses. PSYCH: History of depression, including anxiety and mental illness. HEMATOLOGIC: History of factor V Leiden carrier. PHYSICAL EXAM: VITAL SIGNS: 5 foot 0, 249 pounds. Body mass index 48.8 ABDOMEN: Soft. Protuberant. Mild distention. Tender at the left upper quadrant and left lower quadrant. GENERAL: Well-developed, pleasant female in no acute distress. HEENT: Extraocular movements are grossly intact. No sclerae icterus. MUSCULOSKELETAL: No clubbing, cyanosis, or edema. CHEST: Nonlabored respirations with equal bilateral excursions. CARDIOVASCULAR: Regular rate and rhythm. NEURO: No focal or lateralizing signs. Cranial nerves II-12 grossly intact. PSYCH: Appropriate affect. Alert and order person place and time. SKIN: Good skin. Well perfused. ASSESSMENT: 1. Recurrent sigmoid volvulus with intermittent large bowel obstruction 2. History of peritoneal adhesions 3. History of gastric bypass for obesity 4. Diarrhea with change in bowel 5. History of bowel obstructions 6. Fibromyalgia. 7. Gastroesophageal reflux disease. 8. Diabetes type 2 mellitus 9. Hypertensive heart disease 10. Dyslipidemia. 11. Bilateral lower extremity edema. 12. Polycystic ovarian syndrome. 13. Restless leg syndrome. 14. History of MRSA 15. Cardiomyopathy. 16. Anxiety. 17. Neuropathy 18. Chronic sinusitis. 19. Panniculitis. 20. Factor V Leiden 21. Migraine 22. Obstructive sleep apnea 23. Fatty liver disease 24. Mitral valve prolapse 25. Angina 26. Chronic obstructive pulmonary disease 27. Claustrophobia 28. Posttraumatic stress disorder 29. Iron deficiency anemia 30. Depressive disorder 31. Morbid obesity due to excess calories, BMI initial 60.7 to 48.8 32. Obstructive sleep apnea. 33. Asthma. 34. Osteoarthritis. PLAN: 1. Will proceed with colonoscopy for decompression. Sigmoid colectomy advised for recurrent intermittent large bowel obstruction Past Medical History Past Medical History: Asthma, Blood Disorder, Chest Pain / Angina, COPD, Diabetes Mellitus, Fibromyalgia, GERD/Reflux, Hearing Disorder / Deafness, Hyperlipidemia, Hypertension, Liver Disease, Mitral Valve Prolapse (MVP), Musculoskeletal Disorder, Osteoarthritis (OA), Pneumonia, Respiratory Disorder, Sleep Apnea/CPAP/BIPAP Additional Past Medical History / Comment(s): MIGRAINES, DEGENERATIVE DISC DISEASE, FATTY LIVER, LEIDEN FACTOR 5, OCCASIONAL SWELLING IN LOWER EXT.NEUROPATHY, RLS, diabetes is in remission since surgery, chronic back pain, PATIENT HAS BEEN OFF MEDS FOR DIABETES SINCE BARIATRIC SURGERY History of Any Multi-Drug Resistant Organisms: ESBL Date of last positivie culture/infection: 09/15/18 MDRO Source:: ESBL URINE Past Surgical History: Adenoidectomy, Appendectomy, Bariatric Surgery, Bowel Resection, Breast Surgery, Section, Cholecystectomy, Ear Surgery, Heart Catheterization, Hernia Repair, Orthopedic Surgery, Tonsillectomy Additional Past Surgical History / Comment(s): ARTHROSCOPY RT KNEE X3, RT BREAST BX-NEG, (13) MYRINGOTOMYS. laparoscopic danielle-en-y with lysis of adhesions 2013; Surgical wound debridement x3 ; SX TO REMOVED SCAR TISSUE FROM PREVIOUS ABD SX;EGD ; LAP EXAM- APPY SMALL BOWEL OBSTRUCTION LYSIS OF ADHESIONS, 3 hernia repairs, 3 bowel resection, 07/2016 colon resection, adhesions removed 03/2018 Past Anesthesia/Blood Transfusion Reactions: No Reported Reaction Additional Past Anesthesia/Blood Transfusion Reaction / Comment(s): SEVERE HEADACHE AFTER LAST SCOPE, clausterphobia Smoking Status: Former smoker - Past Family History Mother Family Medical History: Deep Vein Thrombosis (DVT), Hypertension, Pulmonary Embolus, Thyroid Disorder Additional Family Medical History / Comment(s): FACTOR 5 LEIDEN, MVP Father Family Medical History: Diabetes Mellitus, Hypertension, Myocardial Infarction ([place]) Additional Family Medical History / Comment(s): AGE 59 [place] Medications and Allergies Home Medications Medication Instructions Recorded Confirmed Type Cyclobenzaprine [Flexeril] 10 mg PO BID PRN 08/05/16 07/25/21 History Ferrous Sulfate [Feosol] 325 mg PO HS 01/22/18 07/25/21 History Metoclopramide HCl [Reglan] 5 mg PO HS PRN 01/22/18 07/25/21 History Metoprolol Succinate [Toprol XL] 50 mg PO HS 01/22/18 07/25/21 History Nitroglycerin Sl Tabs [Nitrostat] 0.4 mg PO Q5M PRN 01/22/18 07/25/21 History Zinc 50 mg PO HS 03/04/18 07/25/21 History rOPINIRole HCL [Requip] 2 mg PO BID 03/21/18 07/25/21 History Furosemide [Lasix] 20 mg PO HS 05/29/18 07/25/21 History Lisinopril [Zestril] 10 mg PO HS 09/03/18 07/25/21 History Amitriptyline HCl [Elavil] 75 mg PO HS 06/16/21 07/25/21 History Benzonatate [Tessalon Perles] 100 mg PO TID PRN 06/16/21 07/25/21 History Calcium Carb-Vit D 250Mg-125Un 1 tab PO HS 06/16/21 07/25/21 History [Oscal 250+D 3.125 Mcg (125 Iu)] Famotidine 20 mg PO BID 06/16/21 07/25/21 History Magnesium 250 mg PO HS 06/16/21 07/25/21 History Pregabalin [Lyrica] 200 mg PO BID 06/16/21 07/25/21 History Rizatriptan Benzoate [Rizatriptan] 10 mg PO BID PRN 06/16/21 07/25/21 History Rosuvastatin Calcium [Crestor] 40 mg PO HS 06/16/21 07/25/21 History SUMAtriptan SUCCINATE [Imitrex] 100 mg PO BID PRN 06/16/21 07/25/21 History Topiramate [Topamax] 100 mg PO HS 06/16/21 07/25/21 History Acetaminophen Tab [Tylenol] 1,000 mg PO Q6HR PRN #30 tablet 06/22/21 07/25/21 Rx Fluticasone Nasal [place] [Flonase 1 spray EA NOSTRIL Q12H PRN 07/18/21 07/25/21 History Nasal [place]] Ondansetron [Zofran ODT] 4 mg PO Q8HR PRN 07/18/21 07/25/21 History Simethicone 40 mg/0.6 ml Drops 100 mg PO QID PRN 07/18/21 07/25/21 History [Mylicon Drops] Dicyclomine [Bentyl] 10 mg PO QID #60 capsule 07/20/21 07/25/21 Rx Allergies Allergy/AdvReac Type Severity Reaction Status Date / Time Sulfa (Sulfonamide Allergy Severe Anaphylaxis Verified 07/25/21 09:16 Antibiotics) adhesive tape Allergy BLISTERS Verified 07/25/21 09:16 amoxicillin [From Augmentin] Allergy Rash/Hives Verified 07/25/21 09:16 clavulanic acid Allergy Rash/Hives Verified 07/25/21 09:16 [From Augmentin] codeine Allergy ABDOMINAL Verified 07/25/21 09:16 PAIN, MIGRAINE HEADACHE Iodinated Contrast Media Allergy Itching Verified 07/25/21 09:16 [Iodinated Contrast- Oral and IV Dye] morphine Allergy Itching Verified 07/25/21 09:16 Penicillins Allergy Rash/Hives/Itching/Gi Verified 07/25/21 09:16 Upset adhesive AdvReac Itching Verified 07/25/21 09:16 artificial sweetners Allergy Nausea, Uncoded 07/25/21 09:16 MIGRAINE HEADACHE
[2021-07-26] MEDS: LACTATED RINGERS 1,000 ML IV SCH ×2 (09:58→11:05)
[2021-07-26 10:28] LABS: Glucose,Whole Blood 143 mg/dL (75-99)
[2021-07-26] MEDS ORDERED: PROPOFOL 10 MG/ML 50 ML VIAL IV ONE (11:06)
--- NOTE | 2021-07-26 11:36 | P.PCN ---
Date of Procedure: 07/26/21 Description of Procedure: PREOPERATIVE DIAGNOSIS: Sigmoid volvulus with intermittent bowel obstruction POSTOPERATIVE DIAGNOSIS: Sigmoid volvulus with intermittent bowel obstruction OPERATION: Colonoscopy with decompression for sigmoid volvulus SURGEON: Latricia Dumont MD. ANESTHESIA: MAC. INDICATIONS: The patient is a 51-year-old female who presents recurrent sigmoid volvulus and obstipation bowel obstruction. Benefits and risks were described and informed consent was obtained. DESCRIPTION OF PROCEDURE: The patient had Nulytely prep. The patient had been brought into the operating room and laid in the left lateral decubitus position. After adequate intravenous sedation, the rectum was examined with 2% lidocaine jelly. No external hemorrhoids were encountered. The rectal tone was within normal limits. No lesions were palpated in the rectal vault. An Olympus colonoscope was advanced with decompression of sigmoid volvulus. The sigmoid colon was highly redundant. No scattered diverticulosis was encountered. The prep was excellent. No colonic polyps were found. Retroflexion of the scope demonstrated grade 2 internal hemorrhoids without active bleeding or inflammation. The colon was desufflated. The patient had tolerated the procedure well. Withdrawal time was over 6 minutes. FINDINGS: Aronchick preparation quality scale 1 (1-5) Internal hemorrhoids, grade 2 No external prolapsed hemorrhoids. No arteriovenous malformations. No adenomatous polyps. No focal colitis. Decompression of sigmoid volvulus RECOMMENDATIONS: Admission for sigmoid colectomy advised
[2021-07-26] MEDS ORDERED: Antibiotics per Pharmacy 1 EACH MISC MISCELLANE PRN (11:37)
[2021-07-26] MEDS ORDERED: POLYETHYLENE GLYCOL LYTES SOLN 4,000 ML SOLN.RECON PO ONE (11:39)
[2021-07-26] MEDS ORDERED: FLUTICASONE 50MCG/SPRAY NASAL 16GM EA NOSTRIL PRN (11:40)
[2021-07-26] MEDS ORDERED: SIMETHICONE 40 MG/0.6 ML DROPS 2,000 MG/30 ML BOTTLE PO PRN (11:40)
[2021-07-26] MEDS ORDERED: BENZONATATE 100 MG CAP PO PRN (11:40)
[2021-07-26] MEDS ORDERED: RIZATRIPTAN BENZOATE 10 MG PO PRN (11:40)
[2021-07-26] MEDS ORDERED: METOCLOPRAMIDE 5 MG TAB PO PRN (11:40)
[2021-07-26] MEDS ORDERED: CYCLOBENZAPRINE 10 MG TAB PO PRN (11:40)
[2021-07-26] MEDS ORDERED: SUMAtriptan succinate 50 MG TAB PO PRN (11:40)
[2021-07-26] MEDS ORDERED: ACETAMINOPHEN TAB 500 MG TAB PO PRN (11:40)
[2021-07-26] MEDS ORDERED: D5-0.45% NACL WITH KCL 20MEQ/L 1,000 ML IV SCH (11:45)
[2021-07-26] MEDS: LORazepam 2 MG/ML INJ IV PRN ×2 (12:30→19:23)
[2021-07-26] MEDS ORDERED: ONDANSETRON 4 MG/2 ML VIAL IVP ONE ×2 (13:35)
[2021-07-26] MEDS ORDERED: LACTATED RINGERS 1,000 ML IV ONE (13:38)
[2021-07-26] MEDS ORDERED: HYDROmorphone 0.5 MG/0.5 ML SYRINGE IVP ONE ×2 (14:07→14:42)
[2021-07-26] MEDS: metroNIDAZOLE 500 MG TAB PO SCH ×3 (16:14→22:53)
[2021-07-26] MEDS: NEOMYCIN 500 MG TAB PO SCH ×3 (16:14→22:52)
[2021-07-26] MEDS: DICYCLOMINE 10 MG CAP PO SCH ×3 (16:15→20:24)
[2021-07-26 17:11] LABS: Glucose,Whole Blood 116 mg/dL (75-99)
[2021-07-26] MEDS ORDERED: diphenhydrAMINE 25 MG CAP PO ONE (18:00)
[2021-07-26] MEDS ORDERED: SODIUM CHLORIDE 0.9% 1,000 ML IV ONE (20:07)
[2021-07-26] MEDS: METOPROLOL SUCCINATE (ER) 50 MG TAB.ER.24H PO SCH (20:23)
[2021-07-26] MEDS: FAMOTIDINE 20 MG TAB PO SCH (20:23)
[2021-07-26] MEDS: MAGNESIUM OXIDE 400 MG TAB PO SCH (20:23)
[2021-07-26] MEDS: AMITRIPTYLINE HCL 25 MG TAB PO SCH (20:23)
[2021-07-26] MEDS: SODIUM CHLORIDE 0.9% 1,000 ML IV SCH (20:23)
[2021-07-26] MEDS: PREGABALIN 100 MG CAP PO SCH (20:24)
[2021-07-26] MEDS: lisinopriL 10 MG TAB PO SCH (20:24)
[2021-07-26] MEDS ORDERED: TEMAZEPAM 15 MG CAP PO ONE (21:00)
[2021-07-26] MEDS ORDERED: SCOPOLAMINE 1 MG/72 HR PATCH TRANSDERM SCH (21:00)
[2021-07-26 21:52] LABS: Basophils # (A) 0.1 k/uL (0-0.2); Basophils % (A) 1 %; Eosinophils # (A) 0.2 k/uL (0-0.7); Eosinophils % (A) 2 %; HCT 39.3 % (34.0-46.0); HGB 12.3 gm/dL (11.4-16.0); Lymphocytes % (A) 30 %; MCH 28.8 pg (25.0-35.0); MCHC 31.2 g/dL (31.0-37.0); MCV 92.2 fL (80.0-100.0); Mean Platelet Volume 7.7; Monocytes # (A) 0.4 k/uL (0-1.0); Monocytes % (A) 5 %; Neutrophils % (A) 59 %; Platelet Count 249 k/uL (150-450); RBC 4.26 m/uL (3.80-5.40); WBC 6.8 k/uL (3.8-10.6)
[2021-07-26 22:06] LABS: ALT 20 U/L (4-34); African American GFR (CKD) >90 (>60 ml/min/1.73 sqM); Albumin 4.1 g/dL (3.5-5.0); Albumin/Globulin Ratio 1.5; Anion Gap 7 mmol/L; Blood Urea Nitrogen 5 mg/dL (7-17); Calcium 8.9 mg/dL (8.4-10.2); Carbon Dioxide 28 mmol/L (22-30); Chloride 100 mmol/L (98-107); Globulin 2.7 g/dL; Glucose 128 mg/dL (74-99); Non-African American GFR(CKD) >90 (>60 ml/min/1.73 sqM); Sodium 135 mmol/L (137-145); Total Bilirubin 1.2 mg/dL (0.2-1.3); Total Protein 6.8 g/dL (6.3-8.2)
[2021-07-26 22:26] LABS: AST 34 U/L (14-36); Potassium 4.4 mmol/L (3.5-5.1)
[2021-07-26 22:27] LABS: Alkaline Phosphatase 105 U/L (38-126)
[2021-07-26] MEDS: TOPIRAMATE 100 MG TAB PO SCH (22:53)
[2021-07-26] MEDS: diphenhydrAMINE 25 MG CAP PO PRN (22:53)
[2021-07-26] MEDS: ONDANSETRON 4 MG/2 ML VIAL IVP SCH (22:54)
[2021-07-26] MEDS: HYDROmorphone 1 MG/ML 1 ML SYRINGE IVP PRN (23:00)
[2021-07-27] MEDS: SODIUM CHLORIDE 0.9% 1,000 ML IV SCH ×3 (04:29→21:06)
[2021-07-27] MEDS ORDERED: HEPARIN SODIUM,PORCINE/PF 5,000 UNIT/0.5 ML SYRINGE SQ PRN ×2 (05:00→08:00)
[2021-07-27] MEDS ORDERED: metroNIDAZOLE-NS PMX 500 MG in SALINE 1 100ML.BAG IVPB PRN (05:00)
[2021-07-27] MEDS: ONDANSETRON 4 MG/2 ML VIAL IVP SCH ×4 (05:47→23:38)
[2021-07-27] MEDS ORDERED: ALVIMOPAN 12 MG CAPSULE PO PRN (07:00)
[2021-07-27] MEDS ORDERED: ACETAMINOPHEN TAB 500 MG TAB PO PRN (07:00)
[2021-07-27] MEDS: LORazepam 2 MG/ML INJ IV PRN (08:57)
[2021-07-27] MEDS: PREGABALIN 100 MG CAP PO SCH ×2 (08:58→21:04)
[2021-07-27] MEDS: DICYCLOMINE 10 MG CAP PO SCH ×4 (08:58→21:04)
[2021-07-27] MEDS: FAMOTIDINE 20 MG TAB PO SCH ×2 (08:58→21:04)
[2021-07-27] MEDS: LACTATED RINGERS 1,000 ML IV SCH (09:00)
[2021-07-27] MEDS: HYDROmorphone 1 MG/ML 1 ML SYRINGE IVP PRN ×2 (09:23→19:31)
[2021-07-27] MEDS ORDERED: IV FLUID CONTINUATION 1,000 ML IV ONE (10:12)
[2021-07-27 10:47] LABS: Glucose,Whole Blood 132 mg/dL (75-99)
--- NOTE | 2021-07-27 11:09 | P.HPADDEND ---
H&P Addendum H&P Addendum Date: 07/27/21 Patient seen and evaluated. Patient's shayla daughters are at bedside. Robotic sigmoid colectomy described for recurrent intermittent obstruction due to sigmoid volvulus. Inpatient hospitalization for colectomy reviewed. Labs reviewed. Time of recovery for 4 weeks and 4 pounds restriction also reviewed. All questions addressed including length of time of procedure.
[2021-07-27] MEDS ORDERED: MIDAZOLAM 2 MG/2 ML VIAL IVP ONE (11:25)
[2021-07-27] MEDS ORDERED: fentaNYL (PF) 50 MCG/ML 2 ML AMP IVP ONE (11:25)
--- NOTE | 2021-07-27 11:41 | P.ANPRN ---
Procedure Note - Anesthesia - Nerve Block Performed Bilateral Erector Spinae Single Time Out Performed: Yes ([id number]) Date of Procedure: 07/27/21 Procedure Start Time: : Procedure Stop Time: :29 Location of Patient: PreOp Indication: Acute Post-Operative Pain, Requested by Surgeon Specifically requested for management of pain by : Latricia Dumont (\) Sedation Type: Sedate with meaningful contact maintained Preparation: Sterile Prep Position: Prone Catheter: None Needle Types: Pajunk Needle Gauge: 21 Ultrasound used to visualize needle placement: Yes Ultrasound used to observe medication spread: Yes Injectate: 0.5% Ropivacaine (see comment for volume) (20cc + 10cc nacl pf) Blood Aspirated: No Pain Paresthesia on Injection Noted: No Resistance on Injection: Normal Image Stored and Saved: Yes Events: Uneventful and Well Tolerated
[2021-07-27] MEDS ORDERED: PHENYLEPHRINE-0.9% NACL SYG 1,000 MCG/10 ML SYRINGE ONE (12:50)
[2021-07-27] MEDS ORDERED: SODIUM CHLORIDE 0.9% (PF) 10 ML VIAL ONE (12:50)
[2021-07-27] MEDS ORDERED: ROCURONIUM 10 MG/ML (5 ML VIAL) IV ONE (12:50)
[2021-07-27] MEDS ORDERED: NEOSTIGMINE 1 MG/ML 10 ML VIAL ONE (12:50)
[2021-07-27] MEDS ORDERED: SUCCINYLCHOLINE CHLORIDE 100 MG/5 ML SYR IV ONE (12:50)
[2021-07-27] MEDS ORDERED: ONDANSETRON 4 MG/2 ML VIAL ONE (12:50)
[2021-07-27] MEDS ORDERED: PROPOFOL 10 MG/ML 20 ML VIAL IV ONE (12:50)
[2021-07-27] MEDS ORDERED: fentaNYL (PF) 50 MCG/ML 2 ML AMP ONE (12:50)
[2021-07-27] MEDS ORDERED: DEXAMETHASONE SOD PHOSPHATE 4 MG/ML 1 ML VIAL ONE (12:50)
[2021-07-27] MEDS ORDERED: ROPIVACAINE 5 MG/ML 30 ML VIAL ONE (12:50)
[2021-07-27] MEDS ORDERED: GLYCOPYRROLATE 0.2 MG/ML 2 ML VIAL ONE (12:50)
[2021-07-27] MEDS ORDERED: MIDAZOLAM 2 MG/2 ML VIAL ONE (12:50)
[2021-07-27] MEDS ORDERED: ePHEDrine 50 MG/ML 1 ML VIAL ONE (12:50)
[2021-07-27] MEDS ORDERED: LIDOCAINE 2% INJ 20 MG/ML (2 ML VIAL) ONE (12:50)
[2021-07-27] MEDS ORDERED: LACTATED RINGERS 1,000 ML IV ONE ×2 (13:10→13:47)
[2021-07-27] MEDS ORDERED: LIDOCAINE 1%-EPI 1:100,000 20 ML VIAL SQ ONE (13:40)
[2021-07-27] MEDS ORDERED: BENZOCAINE/MENTHOL LOZENG 1 EACH LOZENGE MUCOUS MEM PRN (16:35)
[2021-07-27] MEDS ORDERED: METOCLOPRAMIDE 5 MG/ML 2 ML VIAL IVP PRN (16:35)
[2021-07-27] MEDS ORDERED: SODIUM CHLORIDE 0.9% 1,000 ML IV ONE (16:37)
--- NOTE | 2021-07-27 16:38 | P.OP ---
Date of Procedure: 07/27/21 Description of Procedure: SURGEON: SAM NORTH MD PREOPERATIVE DIAGNOSES: 1. Intermittent large bowel obstruction due to recurrent sigmoid volvulus 2. History of peritoneal adhesions 3. History of gastric bypass for obesity 4. Morbid obesity due to excess calories, BMI initial 60.7 to 45.2 5. Obstructive sleep apnea. 6. Fibromyalgia. 7. Gastroesophageal reflux disease. 8. Diabetes type 2 mellitus 9. Hypertensive heart disease 10. Dyslipidemia. 11. Bilateral lower extremity edema. 12. Polycystic ovarian syndrome. 13. Restless leg syndrome. 14. History of MRSA 15. Cardiomyopathy. 16. Anxiety. 17. Neuropathy 18. Asthma. 19. Panniculitis. 20. Factor V Leiden 21. Migraine 22. Obstructive sleep apnea 23. Fatty liver disease 24. Mitral valve prolapse 25. Angina 26. Chronic obstructive pulmonary disease 27. Claustrophobia 28. Posttraumatic stress disorder 29. Iron deficiency anemia 30. Depressive disorder 31. Osteoarthritis. POSTOPERATIVE DIAGNOSES: 1. Intermittent large bowel obstruction due to recurrent sigmoid volvulus 2. History of peritoneal adhesions 3. History of gastric bypass for obesity 4. Morbid obesity due to excess calories, BMI initial 60.7 to 45.2 5. Obstructive sleep apnea. 6. Fibromyalgia. 7. Gastroesophageal reflux disease. 8. Diabetes type 2 mellitus 9. Hypertensive heart disease 10. Dyslipidemia. 11. Bilateral lower extremity edema. 12. Polycystic ovarian syndrome. 13. Restless leg syndrome. 14. History of MRSA 15. Cardiomyopathy. 16. Anxiety. 17. Neuropathy 18. Asthma. 19. Panniculitis. 20. Factor V Leiden 21. Migraine 22. Obstructive sleep apnea 23. Fatty liver disease 24. Mitral valve prolapse 25. Angina 26. Chronic obstructive pulmonary disease 27. Claustrophobia 28. Posttraumatic stress disorder 29. Iron deficiency anemia 30. Depressive disorder 31. Osteoarthritis. OPERATION: 1. Robotic-assisted daVinci Xi laparoscopic sigmoid colectomy with low anterior resection using 29 mm EEA Ethicon powered stapler 2. Intraoperative flexible sigmoidoscopy using colonoscope Anesthesia: GETA, local ESTIMATED BLOOD LOSS: 5 mL SPECIMENS REMOVED: Sigmoid colon COMPLICATIONS: None. Pathology: other (Sigmoid colectomy) Condition: stable Disposition: floor FINDINGS: 1. Active sigmoid volvulus entangled with small bowel omentum for intermittent large bowel obstruction 2. Redundancy of the descending colon at left upper quadrant with lysis of adhesions performed 3. Low anterior resection with 29 mm EEA powered stapler INDICATIONS: The patient is a 51-year-old female with chronic abdominal pain due to recurrent intermittent bowel obstruction due to sigmoid volvulus. Surgical resection with colectomy described. Benefits and risks, including infection, bowel injury, ureteral injury, colostomy creation and possibility for additional surgery was discussed at length. Informed consent was obtained. All questions of the patient and family were answered. DESCRIPTION: Earlier the patient had undergone a bowel prep using the enhanced colon recovery program. The patient was transferred to the operating room and placed supine. A Calderón catheter was placed. The perineum was prepped and draped in the standard sterile fashion. The abdomen was then prepped and draped in standard sterile fashion as Ioban was placed along the abdomen to minimize any contamination of skin floor. After a timeout protocol was performed, attention was then brought to the left upper quadrant whereby a 0 degree 5 mm laparoscopic trocar entry was performed. The abdominal cavity was entered and insufflated to 15 mmHg pressure, which was tolerated well. Next a robotic 8-mm trocar was placed along the epigastrium 20 cm superior from the pelvis. A 12 mm port was placed along the right lateral upper quadrant. Ports were placed 10 cm apart from each other including 15-20 cm away from the target anatomy of the left pelvis. The 5-mm port was exchanged for an 8 mm robotic port. A 12 mm was placed along the left lateral abdominal wall. The 8- mm port was arranged along the left upper abdominal wall. The patient was then placed in Trendelenburg position, at least 21. The robotic da Rocio XI system was primed. The robot was docked from the right side of the patient. Using atraumatic graspers and vessel sealer, the robotic system was docked and primed as described. Instruments were interchanged by the underwriting assistant including scissors, needle regional intermodal truck driver, robotic stapler and vessel sealer. The robot stapler was prepared along the right lateral abdominal wall. Next, attention was brought to identify the sigmoid colon. The descending colon and sigmoid colon was mobilized along the white line of Toldt towards the pelvis. A stay suture using 3-0 silk was placed along the anterior serosa of the descending colon. The sigmoid mesentery was mobilized using a vessel sealer whereby the distal sigmoid colon was marked and tagged. Using fires of the robot stapler 60 mm green loads, the distal sigmoid colon was divided. Mobilization of the colon was performed to the pelvic brim along the sacral promontory. The mesentery of the sigmoid colon was mobilized towards the descending colon using a vessel sealer. The rest of the sigmoid colon mesentery was mobilized using vessel sealer. Additionally, the sigmoid colon was mobilized onto the colon to minimize injury to the ureters. Adhesions within the pelvis were dressed using vessel sealer. An intraoperative sigmoid colonoscopy was performed to decompress the area of the sigmoid volvulus including identifying sizers allowable up to 31 mm. Once confirmed I went back to the console. The colon was resected along the proximal rectum using green 60 mm loads. Next, I went back to the patient bedside where a 29 mm anvil was entered via the left upper quadrant 12 mm trocar site. A distal descending colotomy was made at the staple line for the anvil. The colotomy was closed using 60 mm green loads. The anvil was projected through the staple line and prepared for connection. A powered 29 mm EEA Ethicon stapler was entered via the rectum. The anvil was mated with the stapler for 1 minute. Both donuts were complete on both sides. I went to the foot of the bed to perform a sigmoidoscopy. A flexible colonoscope was inserted along the rectum and advanced to the anastomosis and proximally. No evidence of leaks were identified after normal saline solution over the anastomosis. The anastomosis was completely hemostatic. All irrigati on fluid was removed. All needles were removed from the abdominal cavity. The robot was undocked. Via the left upper quadrant stapler site, the resected colon was brought out through incision. The fascial defect was oversewn using 0 Vicryl and a Stas Morin. Next all pneumoperitoneum including instruments were evacuated from the abdominal cavity. All incisions were copiously irrigated using dilute normal saline and hydrogen peroxide mixture. The trocar sites were reapproximated using 4-0 Monocryl in an interrupted subcuticular fashion. Local anesthetic was infiltrated to all wounds for postop analgesia. An Optifoam surgical dressing was placed over the colon extraction site. Exofin skin glue was applied to the rest of the skin incisions. The patient was extubated successfully. The patient was transferred to the postanesthesia care unit in stable condition. Patient's daughter Rosalinda called over the telephone with updates on her mother's care.
[2021-07-27] MEDS ORDERED: HYDROmorphone 0.5 MG/0.5 ML SYRINGE IVP ONE (17:32)
[2021-07-27] MEDS: D5-0.45% NACL WITH KCL 20MEQ/L 1,000 ML IV SCH (18:28)
[2021-07-27] MEDS: AMITRIPTYLINE HCL 25 MG TAB PO SCH (21:03)
[2021-07-27] MEDS: TOPIRAMATE 100 MG TAB PO SCH (21:04)
[2021-07-27] MEDS: METOPROLOL SUCCINATE (ER) 50 MG TAB.ER.24H PO SCH (21:04)
[2021-07-27] MEDS: lisinopriL 10 MG TAB PO SCH (21:04)
[2021-07-27] MEDS: ALVIMOPAN 12 MG CAPSULE PO SCH (21:04)
[2021-07-27] MEDS: MAGNESIUM OXIDE 400 MG TAB PO SCH (21:04)
[2021-07-27] MEDS: HEPARIN SODIUM,PORCINE/PF 5,000 UNIT/0.5 ML SYRINGE SQ SCH (21:06)
[2021-07-27] MEDS: KETOROLAC 15 MG/ML 1 ML VIAL IVP SCH (23:38)
[2021-07-27] MEDS: ACETAMINOPHEN IV (For NPO) 1,000 MG in EMPTY BAG 1 BAG IVPB SCH (23:39)
[2021-07-28] MEDS: D5-0.45% NACL WITH KCL 20MEQ/L 1,000 ML IV SCH ×3 (03:09→23:00)
[2021-07-28] MEDS: SODIUM CHLORIDE 0.9% 1,000 ML IV SCH ×2 (03:10→07:57)
[2021-07-28] MEDS: ONDANSETRON 4 MG/2 ML VIAL IVP SCH ×3 (06:00→17:00)
[2021-07-28] MEDS: KETOROLAC 15 MG/ML 1 ML VIAL IVP SCH ×3 (06:01→16:59)
[2021-07-28] MEDS: ACETAMINOPHEN IV (For NPO) 1,000 MG in EMPTY BAG 1 BAG IVPB SCH ×3 (06:07→16:57)
[2021-07-28] MEDS: LACTATED RINGERS 1,000 ML IV SCH (06:09)
[2021-07-28] MEDS: ALVIMOPAN 12 MG CAPSULE PO SCH ×2 (07:55→21:10)
[2021-07-28] MEDS: SIMETHICONE 40 MG/0.6 ML DROPS 2,000 MG/30 ML BOTTLE PO SCH ×4 (07:56→21:25)
[2021-07-28] MEDS: PREGABALIN 100 MG CAP PO SCH ×2 (07:56→21:11)
[2021-07-28] MEDS: DICYCLOMINE 10 MG CAP PO SCH ×4 (07:56→21:12)
[2021-07-28] MEDS: FAMOTIDINE 20 MG TAB PO SCH ×2 (07:56→21:11)
[2021-07-28] MEDS: HEPARIN SODIUM,PORCINE/PF 5,000 UNIT/0.5 ML SYRINGE SQ SCH ×2 (07:57→21:11)
[2021-07-28 10:34] LABS: Basophils # (A) 0.06 X 10*3/uL (0.00-0.10); Basophils % (A) 0.8 %; Eosinophils # (A) 0.02 X 10*3/uL (0.04-0.35); Eosinophils % (A) 0.3 %; HCT 36.8 % (37.2-46.3); HGB 10.6 g/dL (12.0-15.0); Immature Grans, Automated 0.4 %; Lymphocytes # (A) 1.07 X 10*3/uL (0.90-5.00); Lymphocytes % (A) 13.6 %; MCH 29.3 pg (27.0-32.0); MCHC 28.8 g/dL (32.0-37.0); MCV 101.7 fL (80.0-97.0); Monocytes # (A) 0.43 X 10*3/uL (0.20-1.00); Monocytes % (A) 5.5 %; NRBC Per 100 WBC 0 /100 WBCS (0.0-0.0); Neutrophils # (A) 6.24 X 10*3/uL (1.80-7.70); Neutrophils % (A) 79.4 %; Platelet Count 184 X 10*3/uL (140-440); RBC 3.62 X 10*6/uL (4.10-5.20); RDW 14.5 % (11.5-14.5); WBC 7.85 X 10*3/uL (4.50-10.00)
[2021-07-28 11:23] LABS: African American GFR (CKD) 117.1 (60.0-200.0); Anion Gap 10.1 mmol/L (10.00-18.00); BUN/Creat Ratio 5.86 Ratio (12.00-20.00); Blood Urea Nitrogen 4.1 mg/dL (9.0-27.0); Calcium 8.5 mg/dL (8.7-10.3); Carbon Dioxide 18.9 mmol/L (20.0-27.5); Potassium 4.8 mmol/L (3.5-5.5)
[2021-07-28] MEDS: METOCLOPRAMIDE 5 MG/ML 2 ML VIAL IVP SCH ×2 (11:51→16:59)
--- NOTE | 2021-07-28 15:08 | P.PN ---
Subjective Progress Note Date: 07/28/21 CHIEF COMPLAINT: Recurrent sigmoid volvulus with intermittent large bowel obstruction HISTORY OF PRESENT ILLNESS: Patient is POD#1 status post Robotic-assisted daVinci Xi laparoscopic sigmoid colectomy with low anterior resection. Patient reports her pain is controlled. Denies any nausea or vomiting. No flatus or bowel activity. Afebrile. WBC 7.85 Hgb 10.624 sodium 132 potassium 4.8 creatinine 0.7 PHYSICAL EXAM: VITAL SIGNS: Reviewed GENERAL: Well-developed in no acute distress. HEENT: No sclera icterus. Extraocular movements grossly intact. Moist buccal mucosa. Head is atraumatic, normocephalic. Hears conversational speech. No nasal drainage. NECK: Supple without lymphadenopathy. CHEST: Non-labored respirations and equal bilateral excursions. CARDIOVASCULAR: Palpable 2+ radial pulses. ABDOMEN: Soft. Nondistended. Abdominal binder in place MUSCULOSKELETAL: No clubbing or cyanosis. NEUROLOGIC: No focal or lateralizing signs. Cranial nerves II through XII grossly intact. PSYCH: Appropriate affect. Alert and oriented to person, place and time. SKIN: Well perfused. Good skin turgor. ASSESSMENT: 1. Intermittent large bowel obstruction due to recurrent sigmoid volvulus status post Robotic-assisted daVinci Xi laparoscopic sigmoid colectomy with low anterior resection PLAN: -Add Mylicon drops for gas pain -Change Reglan to scheduled -Continue Entereg -Continue abdominal binder -Continue pain management -Continue clear liquid diet -Encouraged patient to ambulate -DVT prophylaxis subcu heparin and GI prophylaxis Pepcid Physician Bank Compliance Officer note has been reviewed by physician. Signing provider agrees with the documented findings, assessment, and plan of care. Patient seen and evaluated. Clinically, patient groggy this morning. She reports resolution of the prior abdominal cramps from sigmoid volvulus. She reports appropriate incisional pain. Recommend ambulation. Recommend abdominal binder. Await bowel function. Objective - Vital Signs Vital signs: Vital Signs Temp 97.7 F 07/28/21 13:00 Pulse 57 L 07/28/21 13:00 Resp 16 07/28/21 13:00 BP 98/62 07/28/21 13:00 Pulse Ox 96 07/28/21 13:00 FiO2 Intake & Output 07/27/21 07/28/21 07/28/21 18:59 06:59 18:59 Intake Total 2200 60 Output Total 755 Balance 1445 60 Intake: IV 2200 Oral 60 Output: Urine 750 Estimated Blood Loss 5 Other: Voiding Method Indwelling Catheter Toilet Indwelling Catheter # Voids 1 - Labs CBC & Chem 7: 07/28/21 08:07 07/28/21 08:07 Labs: Abnormal Lab Results - Last 24 Hours (Table) 07/28/21 07/28/21 Range/Units 08:07 08:07 RBC 3.62 L (4.10-5.20) X 10*6/uL Hgb 10.6 L (12.0-15.0) g/dL Hct 36.8 L (37.2-46.3) % MCV 101.7 H (80.0-97.0) fL MCHC 28.8 L (32.0-37.0) g/dL Eosinophils # 0.02 L (0.04-0.35) X 10*3/uL Sodium 132 L (135-145) mmol/L Carbon Dioxide 18.9 L (20.0-27.5) mmol/L BUN 4.1 L (9.0-27.0) mg/dL BUN/Creatinine Ratio 5.86 L (12.00-20.00) Ratio Glucose 172 H (70-110) mg/dL Calcium 8.5 L (8.7-10.3) mg/dL
--- NOTE | 2021-07-28 20:29 | P.PN ---
Progress Note - Text Progress Note Date: 07/28/21 Patient reevaluated this evening and had a bowel movement with passage of flatus. Will advance diet to low fiber diet. Discharge instructions reviewed. Discharge in the morning after tolerating a low fiber diet.
[2021-07-28] MEDS: METOPROLOL SUCCINATE (ER) 50 MG TAB.ER.24H PO SCH (21:11)
[2021-07-28] MEDS: lisinopriL 10 MG TAB PO SCH (21:11)
[2021-07-28] MEDS: AMITRIPTYLINE HCL 25 MG TAB PO SCH ×2 (21:11→21:19)
[2021-07-28] MEDS: MAGNESIUM OXIDE 400 MG TAB PO SCH (21:11)
[2021-07-28] MEDS: TOPIRAMATE 100 MG TAB PO SCH (21:12)
[2021-07-28] MEDS: HYDROmorphone 1 MG/ML 1 ML SYRINGE IVP PRN (21:13)
[2021-07-29] MEDS: KETOROLAC 15 MG/ML 1 ML VIAL IVP SCH ×2 (00:03→06:04)
[2021-07-29] MEDS: diphenhydrAMINE 25 MG CAP PO PRN (00:04)
[2021-07-29] MEDS: METOCLOPRAMIDE 5 MG/ML 2 ML VIAL IVP SCH ×2 (00:04→06:05)
[2021-07-29] MEDS: ONDANSETRON 4 MG/2 ML VIAL IVP SCH ×2 (02:36→05:36)
[2021-07-29] MEDS: D5-0.45% NACL WITH KCL 20MEQ/L 1,000 ML IV SCH ×2 (02:58→06:04)
[2021-07-29 04:53] VITALS: BP 108/62; PULSE 55; RESP 19; TEMP 97.8
[2021-07-29] MEDS: LACTATED RINGERS 1,000 ML IV SCH (05:36)
--- NOTE | 2021-07-29 08:01 | P.CONS ---
History of Present Illness - Reason for Consult Consult date: 07/29/21 HTN Requesting physician: Latricia Dumont - Chief Complaint s/p LAR for intermittent small bowel obstruction - History of Present Illness The patient is a 50-year-old with history of diabetes type 2, GERD fibromyalgia dyslipidemia cardiomyopathy multiple other comorbidities who was recently hospitalized at the end of May for abdominal pain recurrent small bowel obstr uction. The patient was seen and optimized and she was readmitted for definitive treatment with low anterior resection for her volvulus. The patient states that postoperatively she has pain but it at the expected level. She denies any nausea or vomiting she is passing flatus and has tolerated her diet. Patient states at home she is disabled and lives with her 16-year-old son. Patient is usually able to perform all her ADLs she states she has chronic pain she denies any other complaints Review of Systems Complete review of systems was done and negative other than stated above Past Medical History Past Medical History: Asthma, Blood Disorder, Chest Pain / Angina, COPD, Diabetes Mellitus, Fibromyalgia, GERD/Reflux, Hearing Disorder / Deafness, Hyperlipidemia, Hypertension, Liver Disease, Mitral Valve Prolapse (MVP), Mu sculoskeletal Disorder, Osteoarthritis (OA), Pneumonia, Respiratory Disorder, Sleep Apnea/CPAP/BIPAP Additional Past Medical History / Comment(s): MIGRAINES, DEGENERATIVE DISC DISEASE, FATTY LIVER, LEIDEN FACTOR 5, OCCASIONAL SWELLING IN LOWER EXT.NEUROPATHY, RLS, diabetes is in remission since surgery, chronic back pain, PATIENT HAS BEEN OFF MEDS FOR DIABETES SINCE BARIATRIC SURGERY History of Any Multi-Drug Resistant Organisms: ESBL Year Discovered:: 09/15/18 MDRO Source:: ESBL URINE Past Surgical History: Adenoidectomy, Appendectomy, Bariatric Surgery, Bowel Resection, Breast Surgery, Section, Cholecystectomy, Ear Surgery, Heart Catheterization, Hernia Repair, Orthopedic Surgery, Tonsillectomy Additional Past Surgical History / Comment(s): ARTHROSCOPY RT KNEE X3, RT BREAST BX-NEG, (13) MYRINGOTOMYS. laparoscopic danielle-en-y with lysis of adhesions 2013; Surgical wound debridement x3 ; SX TO REMOVED SCAR TISSUE FROM PREVIOUS ABD SX;EGD ; LAP EXAM- APPY SMALL BOWEL OBSTRUCTION LYSIS OF ADHESIONS, 3 hernia repairs, 3 bowel resection, 07/2016 colon resection, adhesions removed 03/2018 Past Anesthesia/Blood Transfusion Reactions: No Reported Reaction Additional Past Anesthesia/Blood Transfusion Reaction / Comm: SEVERE HEADACHE AFTER LAST SCOPE, clausterphobia Smoking Status: Former smoker - Past Family History Mother Family Medical History: Deep Vein Thrombosis (DVT), Hypertension, Pulmonary Embolus, Thyroid Disorder Additional Family Medical History / Comment(s): FACTOR 5 LEIDEN, MVP Father Family Medical History: Diabetes Mellitus, Hypertension, Myocardial Infarction (SC) Additional Family Medical History / Comment(s): AGE 59 [place] Medications and Allergies Home Medications Medication Instructions Recorded Confirmed Type Cyclobenzaprine [Flexeril] 10 mg PO BID PRN 08/05/16 07/26/21 History Ferrous Sulfate [Feosol] 325 mg PO HS 01/22/18 07/26/21 History Metoclopramide HCl [Reglan] 5 mg PO HS PRN 01/22/18 07/26/21 History Metoprolol Succinate [Toprol XL] 50 mg PO HS 01/22/18 07/26/21 History Nitroglycerin Sl Tabs [Nitrostat] 0.4 mg PO Q5M PRN 01/22/18 07/26/21 History Zinc 50 mg PO HS 03/04/18 07/26/21 History rOPINIRole HCL [Requip] 2 mg PO BID 03/21/18 07/26/21 History Furosemide [Lasix] 20 mg PO HS 05/29/18 07/26/21 History Lisinopril [Zestril] 10 mg PO HS 09/03/18 07/26/21 History Amitriptyline HCl [Elavil] 75 mg PO HS 06/16/21 07/26/21 History Benzonatate [Tessalon Perles] 100 mg PO TID PRN 06/16/21 07/26/21 History Calcium Carb-Vit D 250Mg-125Un 1 tab PO HS 06/16/21 07/26/21 History [Oscal 250+D 3.125 Mcg (125 Iu)] Famotidine 20 mg PO BID 06/16/21 07/26/21 History Magnesium 250 mg PO HS 06/16/21 07/26/21 History Pregabalin [Lyrica] 200 mg PO BID 06/16/21 07/26/21 History Rizatriptan Benzoate [Rizatriptan] 10 mg PO BID PRN 06/16/21 07/26/21 History Rosuvastatin Calcium [Crestor] 40 mg PO HS 06/16/21 07/26/21 History SUMAtriptan SUCCINATE [Imitrex] 100 mg PO BID PRN 06/16/21 07/26/21 History Topiramate [Topamax] 100 mg PO HS 06/16/21 07/26/21 History Acetaminophen Tab [Tylenol] 1,000 mg PO Q6HR PRN #30 tablet 06/22/21 07/26/21 Rx Fluticasone Nasal [place] [Flonase 1 spray EA NOSTRIL Q12H PRN 07/18/21 07/26/21 History Nasal [place]] Ondansetron [Zofran ODT] 4 mg PO Q8HR PRN 07/18/21 07/26/21 History Simethicone 40 mg/0.6 ml Drops 100 mg PO QID PRN 07/18/21 07/26/21 History [Mylicon Drops] Dicyclomine [Bentyl] 10 mg PO QID #60 capsule 07/20/21 07/26/21 Rx Acetaminophen Tab [Tylenol Tab] 1,000 mg PO Q6HR PRN #30 tablet 07/28/21 Rx Simethicone [Gas-X] 125 mg PO AC-TID PRN #20 capsule 07/28/21 Rx Allergies Allergy/AdvReac Type Severity Reaction Status Date / Time Sulfa (Sulfonamide Allergy Severe Anaphylaxis Verified 07/26/21 10:12 Antibiotics) adhesive tape Allergy BLISTERS Verified 07/26/21 10:12 amoxicillin [From Augmentin] Allergy Rash/Hives Verified 07/26/21 10:12 clavulanic acid Allergy Rash/Hives Verified 07/26/21 10:12 [From Augmentin] codeine Allergy ABDOMINAL Verified 07/26/21 10:12 PAIN, MIGRAINE HEADACHE Iodinated Contrast Media Allergy Itching Verified 07/26/21 10:12 [Iodinated Contrast- Oral and IV Dye] Penicillins Allergy Rash/Hives/Itching/Gi Verified 07/26/21 10:12 Upset adhesive AdvReac Itching Verified 07/26/21 10:12 artificial sweetners Allergy Nausea, Uncoded 07/26/21 10:12 MIGRAINE HEADACHE Physical Exam Vitals: Vital Signs Temp Pulse Pulse Resp BP BP Pulse Ox 07/29/21 04:51 97.8 F 55 L 19 108/62 97 07/28/21 21:10 68 120/71 07/28/21 21:00 98.5 F 61 18 116/70 99 07/28/21 20:01 68 18 07/28/21 13:00 97.7 F 57 L 16 98/62 96 07/28/21 08:40 64 70 16 07/28/21 08:08 70 126/75 Intake and Output 07/28/21 07/29/21 07/29/21 22:59 06:59 14:59 Intake Total 240 Balance 240 Intake: Oral 240 Other: Voiding Method Toilet # Voids 2 2 # Bowel Movements 1 1 - Constitutional General appearance: obese - EENT Eyes: PERRLA - Respiratory Respiratory: bilateral: CTA - Cardiovascular Rhythm: regular - Gastrointestinal Abdominal binder in place General gastrointestinal: normal bowel sounds - Integumentary Integumentary: normal, normal turgor - Neurologic Neurologic: CNII-XII intact Results CBC & Chem 7: 07/28/21 08:07 07/28/21 08:07 Labs: Abnormal Lab Results - Last 24 Hours (Table) 07/28/21 07/28/21 Range/Units 08:07 08:07 RBC 3.62 L (4.10-5.20) X 10*6/uL Hgb 10.6 L (12.0-15.0) g/dL Hct 36.8 L (37.2-46.3) % MCV 101.7 H (80.0-97.0) fL MCHC 28.8 L (32.0-37.0) g/dL Eosinophils # 0.02 L (0.04-0.35) X 10*3/uL Sodium 132 L (135-145) mmol/L Carbon Dioxide 18.9 L (20.0-27.5) mmol/L BUN 4.1 L (9.0-27.0) mg/dL BUN/Creatinine Ratio 5.86 L (12.00-20.00) Ratio Glucose 172 H (70-110) mg/dL Calcium 8.5 L (8.7-10.3) mg/dL Assessment and Plan (1) Diabetes Narrative/Plan: The patient states since her bypass she has been off medications Current Visit: No Status: Acute Code(s): E11.9 - TYPE 2 DIABETES MELLITUS WITHOUT COMPLICATIONS SNOMED Code(s): 55870586 (2) Abdominal pain Narrative/Plan: Postoperatively controlled with current regiment deferred per primary team Current Visit: No Status: Acute Code(s): R10.9 - UNSPECIFIED ABDOMINAL PAIN SNOMED Code(s): 61485127 (3) Factor V Leiden Current Visit: No Status: Acute Priority: Medium Code(s): D68.51 - ACTIVATED PROTEIN C RESISTANCE SNOMED Code(s): 781537567 (4) Hypertensive cardiovascular disease Narrative/Plan: Continue outpatient regimen and titrate as needed Current Visit: No Status: Acute Code(s): I11.9 - HYPERTENSIVE HEART DISEASE WITHOUT HEART FAILURE SNOMED Code(s): 11709893
[2021-07-29] MEDS: DICYCLOMINE 10 MG CAP PO SCH (08:44)
[2021-07-29] MEDS: HEPARIN SODIUM,PORCINE/PF 5,000 UNIT/0.5 ML SYRINGE SQ SCH ×2 (08:45→08:48)
[2021-07-29] MEDS: PREGABALIN 100 MG CAP PO SCH (08:45)
[2021-07-29] MEDS: ALVIMOPAN 12 MG CAPSULE PO SCH (08:45)
[2021-07-29] MEDS: FAMOTIDINE 20 MG TAB PO SCH (08:45)
[2021-07-29] MEDS: SIMETHICONE 40 MG/0.6 ML DROPS 2,000 MG/30 ML BOTTLE PO SCH (08:46)
--- NOTE | 2021-07-29 11:13 | P.DS ---
Providers Date of admission: 07/26/21 11:39 Expected date of discharge: 07/29/21 Attending physician: Latricia Dumont Consults: 07/28/21 15:56 Consult Physician Routine Consulting Provider: Radha Koroma Consult Reason/Comments: Medical management Do you want consulting provider notified?: Yes Primary care physician: Physician Nonstaff Hospital Course: POSTOPERATIVE DIAGNOSES: 1. Intermittent large bowel obstruction due to recurrent sigmoid volvulus 2. History of peritoneal adhesions 3. History of gastric bypass for obesity 4. Morbid obesity due to excess calories, BMI initial 60.7 to 45.2 5. Obstructive sleep apnea. 6. Fibromyalgia. 7. Gastroesophageal reflux disease. 8. Diabetes type 2 mellitus 9. Hypertensive heart disease 10. Dyslipidemia. 11. Bilateral lower extremity edema. 12. Polycystic ovarian syndrome. 13. Restless leg syndrome. 14. History of MRSA 15. Cardiomyopathy. 16. Anxiety. 17. Neuropathy 18. Asthma. 19. Panniculitis. 20. Factor V Leiden 21. Migraine 22. Obstructive sleep apnea 23. Fatty liver disease 24. Mitral valve prolapse 25. Angina 26. Chronic obstructive pulmonary disease 27. Claustrophobia 28. Posttraumatic stress disorder 29. Iron deficiency anemia 30. Depressive disorder 31. Osteoarthritis. COURSE: The patient is a 51-year-old female with chronic abdominal pain due to recurrent intermittent bowel obstruction due to sigmoid volvulus. She underwent low anterior resection with sigmoid colectomy. She was passing flatus and having bowel movements. Her prior abdominal pain had resolved. Pain was controlled. Patient was stable for discharge. Discharge instructions were reviewed including colectomy diet, medication reconciliation was also performed. Procedures: OPERATION: 1. Robotic-assisted daVinci Xi laparoscopic sigmoid colectomy with low anterior resection using 29 mm EEA Ethicon powered stapler 2. Intraoperative flexible sigmoidoscopy using colonoscope Anesthesia: GETA, local ESTIMATED BLOOD LOSS: 5 mL SPECIMENS REMOVED: Sigmoid colon COMPLICATIONS: None. Pathology: other (Sigmoid colectomy) Condition: stable Disposition: floor FINDINGS: 1. Active sigmoid volvulus entangled with small bowel omentum for intermittent large bowel obstruction 2. Redundancy of the descending colon at left upper quadrant with lysis of adhesions performed 3. Low anterior resection with 29 mm EEA powered stapler Patient Condition at Discharge: Good Plan - Discharge Summary Discharge Rx Participant: No New Discharge Prescriptions: New Acetaminophen Tab [Tylenol Tab] 1,000 mg PO Q6HR PRN #30 tablet PRN Reason: Pain Simethicone [Gas-X] 125 mg PO AC-TID PRN #20 capsule PRN Reason: Pain Continue Cyclobenzaprine [Flexeril] 10 mg PO BID PRN PRN Reason: Muscle Pain Nitroglycerin Sl Tabs [Nitrostat] 0.4 mg PO Q5M PRN PRN Reason: Chest Pain Metoprolol Succinate [Toprol XL] 50 mg PO HS Metoclopramide HCl [Reglan] 5 mg PO HS PRN PRN Reason: Nausea Ferrous Sulfate [Feosol] 325 mg PO HS Zinc 50 mg PO HS rOPINIRole HCL [Requip] 2 mg PO BID Furosemide [Lasix] 20 mg PO HS Lisinopril [Zestril] 10 mg PO HS Topiramate [Topamax] 100 mg PO HS Pregabalin [Lyrica] 200 mg PO BID Simethicone 40 mg/0.6 ml Drops [Mylicon Drops] 100 mg PO QID PRN PRN Reason: GAS/BLOATING Fluticasone Nasal [place] [Flonase Nasal [place]] 1 spray EA NOSTRIL Q12H PRN PRN Reason: Allergy Symptoms Rosuvastatin Calcium [Crestor] 40 mg PO HS SUMAtriptan SUCCINATE [Imitrex] 100 mg PO BID PRN PRN Reason: Migraine Headache Rizatriptan Benzoate [Rizatriptan] 10 mg PO BID PRN PRN Reason: Migraine Headache Magnesium 250 mg PO HS Famotidine 20 mg PO BID Calcium Carb-Vit D 250Mg-125Un [Oscal 250+D 3.125 Mcg (125 Iu)] 1 tab PO HS Benzonatate [Tessalon Perles] 100 mg PO TID PRN PRN Reason: Cough Amitriptyline HCl [Elavil] 75 mg PO HS Acetaminophen Tab [Tylenol] 1,000 mg PO Q6HR PRN #30 tablet PRN Reason: Pain Ondansetron [Zofran ODT] 4 mg PO Q8HR PRN PRN Reason: Nausea Dicyclomine [Bentyl] 10 mg PO QID #60 capsule Discharge Medication List Cyclobenzaprine [Flexeril] 10 mg PO BID PRN 08/05/16 [History] Ferrous Sulfate [Feosol] 325 mg PO HS 01/22/18 [History] Metoclopramide HCl [Reglan] 5 mg PO HS PRN 01/22/18 [History] Metoprolol Succinate [Toprol XL] 50 mg PO HS 01/22/18 [History] Nitroglycerin Sl Tabs [Nitrostat] 0.4 mg PO Q5M PRN 01/22/18 [History] Zinc 50 mg PO HS 03/04/18 [History] rOPINIRole HCL [Requip] 2 mg PO BID 03/21/18 [History] Furosemide [Lasix] 20 mg PO HS 05/29/18 [History] Lisinopril [Zestril] 10 mg PO HS 09/03/18 [History] Amitriptyline HCl [Elavil] 75 mg PO HS 06/16/21 [History] Benzonatate [Tessalon Perles] 100 mg PO TID PRN 06/16/21 [History] Calcium Carb-Vit D 250Mg-125Un [Oscal 250+D 3.125 Mcg (125 Iu)] 1 tab PO HS 06/16/21 [History] Famotidine 20 mg PO BID 06/16/21 [History] Magnesium 250 mg PO HS 06/16/21 [History] Pregabalin [Lyrica] 200 mg PO BID 06/16/21 [History] Rizatriptan Benzoate [Rizatriptan] 10 mg PO BID PRN 06/16/21 [History] Rosuvastatin Calcium [Crestor] 40 mg PO HS 06/16/21 [History] SUMAtriptan SUCCINATE [Imitrex] 100 mg PO BID PRN 06/16/21 [History] Topiramate [Topamax] 100 mg PO HS 06/16/21 [History] Acetaminophen Tab [Tylenol] 1,000 mg PO Q6HR PRN #30 tablet 06/22/21 [Rx] Fluticasone Nasal [place] [Flonase Nasal [place]] 1 spray EA NOSTRIL Q12H PRN 07/18/21 [History] Ondansetron [Zofran ODT] 4 mg PO Q8HR PRN 07/18/21 [History] Simethicone 40 mg/0.6 ml Drops [Mylicon Drops] 100 mg PO QID PRN 07/18/21 [History] Dicyclomine [Bentyl] 10 mg PO QID #60 capsule 07/20/21 [Rx] Acetaminophen Tab [Tylenol Tab] 1,000 mg PO Q6HR PRN #30 tablet 07/28/21 [Rx] Simethicone [Gas-X] 125 mg PO AC-TID PRN #20 capsule 07/28/21 [Rx] Follow up Appointment(s)/Referral(s): Latricia Dumont MD [STAFF PHYSICIAN] - 08/01/21 (Telehealth) Patient Instructions/Handouts: *Sur[facility] - Managing Your Pain After Surgery Without Opioids, Acetaminophen (By mouth), Simethicone (By mouth), Colectomy Diet (DC), Laparoscopic Bowel Resection (GEN), Colectomy (GEN) Activity/Diet/Wound Care/Special Instructions: Wear abdominal binder at all times for comfort. No lifting over 4 pounds in 4 weeks until August 26. May shower. No bath tub soaks for two weeks until August 10. Avoid steak, tough meats and seeds such as raspberry seeds. No driving while on narcotics. Use Tylenol scheduled for the next 24-48 hours for best pain relief. Use ice along incisions for today to prevent swelling. Discharge Disposition: HOME SELF-CARE
== END 2021-07-29 10:55 | disposition home or self-care (01) | DRG 330 ==
LOC: ORWHC2ENDO 08:58 → 5NMEDONC 11:22 → ORWHC2ENDO 11:39 → 5NMEDONC 11:39
PROVIDERS: ADMIT Surgery Plastic and Reconstructive Surgery; ATTEND Surgery Plastic and Reconstructive Surgery
PROC: 0D7N8ZZ Dilation of Sigmoid Colon, Via Natural or Artificial Opening Endoscopic (ICD-10-PCS; 2021-07-26)
PROC: 0DBP0ZZ Excision of Rectum, Open Approach (ICD-10-PCS; 2021-07-27)
PROC: 0DNW0ZZ Release Peritoneum, Open Approach (ICD-10-PCS; 2021-07-27)
PROC: 0DNU0ZZ Release Omentum, Open Approach (ICD-10-PCS; 2021-07-27)
PROC: 8E0W0CZ Robotic Assisted Procedure of Trunk Region, Open Approach (ICD-10-PCS; 2021-07-27)
PROC: 0DJD8ZZ Inspection of Lower Intestinal Tract, Via Natural or Artificial Opening Endoscopic (ICD-10-PCS; 2021-07-27)
PROC: 0DTN0ZZ Resection of Sigmoid Colon, Open Approach (ICD-10-PCS; principal; 2021-07-27 11:30)
DX: K56.2 Volvulus (principal); D68.51 Activated protein C resistance; I42.9 Cardiomyopathy, unspecified; Z68.42 Body mass index [BMI] 45.0-49.9, adult; D50.9 Iron deficiency anemia, unspecified; E11.40 Type 2 diabetes mellitus with diabetic neuropathy, unspecified; E28.2 Polycystic ovarian syndrome; E66.01 Morbid (severe) obesity due to excess calories; E78.5 Hyperlipidemia, unspecified; F32.A Depression, unspecified; K66.0 Peritoneal adhesions (postprocedural) (postinfection); F40.240 Claustrophobia; F43.10 Post-traumatic stress disorder, unspecified; G25.81 Restless legs syndrome; G43.909 Migraine, unspecified, not intractable, without status migrainosus; G47.33 Obstructive sleep apnea (adult) (pediatric); G89.29 Other chronic pain; H91.90 Unspecified hearing loss, unspecified ear; I34.1 Nonrheumatic mitral (valve) prolapse; J32.9 Chronic sinusitis, unspecified; J44.9 Chronic obstructive pulmonary disease, unspecified; K21.9 Gastro-esophageal reflux disease without esophagitis; K64.8 Other hemorrhoids; K76.0 Fatty (change of) liver, not elsewhere classified; M19.90 Unspecified osteoarthritis, unspecified site; M79.3 Panniculitis, unspecified; M79.7 Fibromyalgia; J45.909 Unspecified asthma, uncomplicated; I10 Essential (primary) hypertension; Z79.899 Other long term (current) drug therapy; Z80.0 Family history of malignant neoplasm of digestive organs; Z80.7 Family history of other malignant neoplasms of lymphoid, hematopoietic and related tissues; Z82.49 Family history of ischemic heart disease and other diseases of the circulatory system; Z83.3 Family history of diabetes mellitus; Z86.14 Personal history of Methicillin resistant Staphylococcus aureus infection; Z87.891 Personal history of nicotine dependence; Z98.84 Bariatric surgery status; Z88.2 Allergy status to sulfonamides; Z91.048 Other nonmedicinal substance allergy status; Z88.1 Allergy status to other antibiotic agents; Z88.5 Allergy status to narcotic agent; Z88.0 Allergy status to penicillin; Z91.041 Radiographic dye allergy status; Z88.8 Allergy status to other drugs, medicaments and biological substances
CPT/HCPCS: 45393; 64999; 80048; 80053; 81025; 85025; 88307

== ENCOUNTER 2021-08-10 14:20 | Emergency (ER) | payer BC, MEDICARE ==
[2021-08-10 15:47] VITALS: RESP 18; TEMP 98
[2021-08-10] MEDS ORDERED: SODIUM CHLORIDE 0.9% 1,000 ML IV STA (20:28)
[2021-08-10] MEDS ORDERED: ONDANSETRON 4 MG/2 ML VIAL IVP STA (20:38)
[2021-08-10] MEDS ORDERED: HYDROmorphone 1 MG/ML 1 ML SYRINGE IVP STA (20:38)
--- NOTE | 2021-08-10 20:47 | ED ---
Abdominal Pain HPI - General Chief Complaint: Abdominal Pain Stated Complaint: Fall-Abd/back pain Time Seen by Provider: 08/10/21 20:25 Source: patient, RN notes reviewed Mode of arrival: ambulatory Limitations: no limitations - History of Present Illness Initial Comments: This is a pleasant 51-year-old female who presents complaining of left lower quadrant abdominal pain which started last night when she inadvertently tripped on her deck. Patient states she didn't fall but in the process of trying to save herself she somehow irritated her left lower quadrant. Patient states she's had intense pain since then with nausea. Denies vomiting. Denies any changes in bowel movements but states she is passing less gas. Patient had surgery [address] Hart for sigmoid volvulus. Patient states she was doing well up until this event. No headache, no fever or chills, no changes in vision or hearing, no sore throat or difficulty with speech, no neck pain, no chest pain or shortness of breath, no vomiting, no changes in urination or bowel movements, no numbness or tingling, no extremity pain, no skin rashes or lesions. MD Complaint: abdominal pain - Related Data Home Medications Medication Instructions Recorded Confirmed Cyclobenzaprine [Flexeril] 10 mg PO BID PRN 08/05/16 07/26/21 Ferrous Sulfate [Feosol] 325 mg PO HS 01/22/18 07/26/21 Metoclopramide HCl [Reglan] 5 mg PO HS PRN 01/22/18 07/26/21 Metoprolol Succinate [Toprol XL] 50 mg PO HS 01/22/18 07/26/21 Nitroglycerin Sl Tabs [Nitrostat] 0.4 mg PO Q5M PRN 01/22/18 07/26/21 Zinc 50 mg PO HS 03/04/18 07/26/21 rOPINIRole HCL [Requip] 2 mg PO BID 03/21/18 07/26/21 Furosemide [Lasix] 20 mg PO HS 05/29/18 07/26/21 lisinopriL [Zestril] 10 mg PO HS 09/03/18 07/26/21 Amitriptyline HCl [Elavil] 75 mg PO HS 06/16/21 07/26/21 Benzonatate [Tessalon Perles] 100 mg PO TID PRN 06/16/21 07/26/21 Calcium Carb-Vit D 250Mg-125Un 1 tab PO HS 06/16/21 07/26/21 [Oscal 250+D 3.125 Mcg (125 Iu)] Famotidine 20 mg PO BID 06/16/21 07/26/21 Magnesium 250 mg PO HS 06/16/21 07/26/21 Pregabalin [Lyrica] 200 mg PO BID 06/16/21 07/26/21 Rizatriptan Benzoate [Rizatriptan] 10 mg PO BID PRN 06/16/21 07/26/21 Rosuvastatin Calcium [Crestor] 40 mg PO HS 06/16/21 07/26/21 SUMAtriptan succinate [Imitrex] 100 mg PO BID PRN 06/16/21 07/26/21 Topiramate [Topamax] 100 mg PO HS 06/16/21 07/26/21 Fluticasone Nasal Minerva [Flonase 1 spray EA NOSTRIL Q12H PRN 07/18/21 07/26/21 Nasal Minerva] Ondansetron [Zofran ODT] 4 mg PO Q8HR PRN 07/18/21 07/26/21 Simethicone 40 mg/0.6 ml Drops 100 mg PO QID PRN 07/18/21 07/26/21 [Mylicon Drops] Previous Rx's Medication Instructions Recorded Acetaminophen Tab [Tylenol] 1,000 mg PO Q6HR PRN #30 tablet 06/22/21 Dicyclomine [Bentyl] 10 mg PO QID #60 capsule 07/20/21 Acetaminophen Tab [Tylenol Tab] 1,000 mg PO Q6HR PRN #30 tablet 07/28/21 Simethicone [Gas-X] 125 mg PO AC-TID PRN #20 capsule 07/28/21 Docusate [Colace] 100 mg PO DAILY #30 capsule 08/11/21 Allergies Allergy/AdvReac Type Severity Reaction Status Date / Time Sulfa (Sulfonamide Allergy Severe Anaphylaxis Verified 08/10/21 15:47 Antibiotics) adhesive tape Allergy BLISTERS Verified 08/10/21 15:47 amoxicillin [From Augmentin] Allergy Rash/Hives Verified 08/10/21 15:47 clavulanic acid Allergy Rash/Hives Verified 08/10/21 15:47 [From Augmentin] codeine Allergy ABDOMINAL Verified 08/10/21 15:47 PAIN, MIGRAINE HEADACHE Iodinated Contrast Media Allergy Itching Verified 08/10/21 15:47 [Iodinated Contrast- Oral and IV Dye] Penicillins Allergy Rash/Hives/Itching/Gi Verified 08/10/21 15:47 Upset adhesive AdvReac Itching Verified 08/10/21 15:47 artificial sweetners Allergy Nausea, Uncoded 08/10/21 15:47 MIGRAINE HEADACHE Review of Systems ROS Statement: Those systems with pertinent positive or pertinent negative responses have been documented in the HPI. ROS Other: All systems not noted in ROS Statement are negative. Past Medical History Past Medical History: Asthma, Blood Disorder, Chest Pain / Angina, COPD, Diabetes Mellitus, Fibromyalgia, GERD/Reflux, Hearing Disorder / Deafness, Hyperlipidemia, Hypertension, Liver Disease, Mitral Valve Prolapse (MVP), Musculoskeletal Disorder, Osteoarthritis (OA), Pneumonia, Respiratory Disorder, Sleep Apnea/CPAP/BIPAP Additional Past Medical History / Comment(s): MIGRAINES, DEGENERATIVE DISC DISEASE, FATTY LIVER, LEIDEN FACTOR 5, OCCASIONAL SWELLING IN LOWER EXT.NEUROPATHY, RLS, diabetes is in remission since surgery, chronic back pain, PATIENT HAS BEEN OFF MEDS FOR DIABETES SINCE BARIATRIC SURGERY History of Any Multi-Drug Resistant Organisms: ESBL Date of last positivie culture/infection: 09/15/18 MDRO Source:: ESBL URINE Past Surgical History: Adenoidectomy, Appendectomy, Bariatric Surgery, Bowel Resection, Breast Surgery, Section, Cholecystectomy, Ear Surgery, Heart Catheterization, Hernia Repair, Orthopedic Surgery, Tonsillectomy Additional Past Surgical History / Comment(s): ARTHROSCOPY RT KNEE X3, RT BREAST BX-NEG, (13) MYRINGOTOMYS. laparoscopic danielle-en-y with lysis of adhesions 2013; Surgical wound debridement x3 ; SX TO REMOVED SCAR TISSUE FROM PREVIOUS ABD SX;EGD ; LAP EXAM- APPY SMALL BOWEL OBSTRUCTION LYSIS OF ADHESIONS, 3 hernia repairs, 3 bowel resection, 07/2016 colon resection, adhesions removed 03/2018 Past Anesthesia/Blood Transfusion Reactions: No Reported Reaction Additional Past Anesthesia/Blood Transfusion Reaction / Comment(s): SEVERE HEADACHE AFTER LAST SCOPE, clausterphobia Past Psychological History: Anxiety, Bipolar, Depression, PTSD Smoking Status: Former smoker Past Alcohol Use History: Occasional Past Drug Use History: None Reported - Past Family History Mother Family Medical History: Deep Vein Thrombosis (DVT), Hypertension, Pulmonary Embolus, Thyroid Disorder Additional Family Medical History / Comment(s): FACTOR 5 LEIDEN, MVP Father Family Medical History: Diabetes Mellitus, Hypertension, Myocardial Infarction ([place]) Additional Family Medical History / Comment(s): AGE 59 [place] General Exam Limitations: no limitations General appearance: alert, in distress Head exam: Present: atraumatic, normocephalic, normal inspection Eye exam: Present: normal appearance, PERRL, EOMI. Absent: scleral icterus, conjunctival injection, periorbital swelling ENT exam: Present: normal exam, normal oropharynx, mucous membranes moist, normal external ear exam. Absent: mucous membranes dry Neck exam: Present: normal inspection, full ROM. Absent: tenderness, meningismus, lymphadenopathy Respiratory exam: Present: normal lung sounds bilaterally. Absent: respiratory distress, wheezes, rales, rhonchi, stridor, chest wall tenderness, decreased breath sounds, prolonged expiratory Cardiovascular Exam: Present: regular rate, normal rhythm, normal heart sounds. Absent: systolic murmur, diastolic murmur, rubs, gallop, clicks GI/Abdominal exam: Present: soft, tenderness (Left lower quadrant), guarding, diminished bowel sounds, other (Laparoscopic surgical scars appear to be healing well. No evidence of dehiscence or secondary infection). Absent: distended, rebound, rigid Extremities exam: Present: normal inspection, full ROM, normal capillary refill. Absent: tenderness, pedal edema, joint swelling, calf tenderness Back exam: Present: normal inspection Neurological exam: Present: alert, oriented X3, CN II-XII intact Psychiatric exam: Present: normal affect, normal mood Skin exam: Present: warm, dry, intact, normal color. Absent: rash Course Vital Signs 08/10/21 08/10/21 15:43 21:47 Temperature 98.0 F Pulse Rate 79 60 Respiratory 18 18 Rate Blood Pressure 169/89 167/87 O2 Sat by Pulse 100 99 Oximetry - Reevaluation(s) Reevaluation #1: 08/11/21 01:32 Medical record is reviewed Symptoms are improved here in the emergency department Patient is informed of results and questions answered Patient in no distress Patient states she feels well enough to go home. Patient's workup here essentially negative. - Consultations Consultation #1: I did discuss this case with the on-call surgeon, Dr. Sutton. He states if the CAT scan was normal the patient can go home. Medical Decision Making - Medical Decision Making Patient presents with postsurgical abdominal pain. Tender in left lower quadrant. Patient's workup is essentially negative. I did touch base with the on-call surgeon who requested a computed tomography scan. Computed tomography scan was negative for any acute pathology. We did review the films. Patient was told to return to the ER for any signs or symptoms worsen. Told to return immediately if any other problems arise. All questions answered. Treatment plan discussed. Patient in agreement Every effort has been made to ensure accuracy of this dictation. However, due to the limitations of electronic medical records and dictation devices, errors in charting still occur. Patient states she feels well enough to go home. To give the patient a starter pack of Tylenol with Codeine and told to call Dr. Gabriel 8 AM in the morning. Increase clear liquids. The case was discussed in detail with ED attending physician. Presentation, findings, treatment plan discussed in detail. Regulatory Compliance Specialist, Dr. Navarro - Lab Data Result diagrams: 08/10/21 21:17 08/10/21 22:30 Lab Results 08/10/21 08/10/21 08/10/21 Range/Units 21:17 21:23 22:30 WBC 7.6 (3.8-10.6) k/uL RBC 4.03 (3.80-5.40) m/uL Hgb 12.5 (11.4-16.0) gm/dL Hct 37.5 (34.0-46.0) % MCV 93.1 (80.0-100.0) fL MCH 31.0 (25.0-35.0) pg MCHC 33.3 (31.0-37.0) g/dL RDW 14.1 (11.5-15.5) % Plt Count 245 (150-450) k/uL MPV 7.7 Neutrophils % 63 % Lymphocytes % 27 % Monocytes % 4 % Eosinophils % 4 % Basophils % 1 % Neutrophils # 4.8 (1.3-7.7) k/uL Lymphocytes # 2.0 (1.0-4.8) k/uL Monocytes # 0.3 (0-1.0) k/uL Eosinophils # 0.3 (0-0.7) k/uL Basophils # 0.1 (0-0.2) k/uL Sodium 139 (137-145) mmol/L Potassium 4.3 (3.5-5.1) mmol/L Chloride 105 (98-107) mmol/L Carbon Dioxide 29 (22-30) mmol/L Anion Gap 5 mmol/L BUN 10 (7-17) mg/dL Creatinine 0.63 (0.52-1.04) mg/dL Est GFR (CKD-EPI)AfAm >90 (>60 ml/min/1.73 sqM) Est GFR (CKD-EPI)NonAf >90 (>60 ml/min/1.73 sqM) Glucose 104 H (74-99) mg/dL Calcium 8.7 (8.4-10.2) mg/dL Total Bilirubin 0.8 (0.2-1.3) mg/dL AST 21 (14-36) U/L ALT 14 (4-34) U/L Alkaline Phosphatase 103 (38-126) U/L Total Protein 6.2 L (6.3-8.2) g/dL Albumin 3.8 (3.5-5.0) g/dL Lipase 44 (23-300) U/L Urine Color Light Yellow Urine Appearance Clear (Clear) Urine pH 5.5 (5.0-8.0) Ur Specific Gazelle 1.009 (1.001-1.035) Urine Protein Negative (Negative) Urine Glucose (UA) Negative (Negative) Urine Ketones Negative (Negative) Urine Blood Negative (Negative) Urine Nitrite Negative (Negative) Urine Bilirubin Negative (Negative) Urine Urobilinogen <2.0 (<2.0) mg/dL Ur Leukocyte Esterase Trace H (Negative) Urine RBC <1 (0-5) /hpf Urine WBC 2 (0-5) /hpf Ur Squamous Epith Cells 3 (0-4) /hpf Urine Mucus Rare H (None) /hpf Disposition Clinical Impression: Left lower quadrant abdominal pain, Postoperative pain Disposition: HOME SELF-CARE Condition: Good Instructions (If sedation given, give patient instructions): Abdominal Pain (ED) Additional Instructions: Increase clear liquids. Make sure you get constipated. Call your surgeon at 8 AM to schedule follow-up. Follow-up with your regular physician as directed. Return to the ER immediately if any symptoms worsen, new symptoms arise, or any other problems develop. Prescriptions: Docusate [Colace] 100 mg PO DAILY #30 capsule Is patient prescribed a controlled substance at d/c from ED?: No Referrals: Latricia Dumont MD [STAFF PHYSICIAN] - 08/11/21 8:00 am Time of Disposition: 01:34
[2021-08-10 21:25] LABS: Basophils # (A) 0.1 k/uL (0-0.2); Basophils % (A) 1 %; Eosinophils # (A) 0.3 k/uL (0-0.7); Eosinophils % (A) 4 %; HCT 37.5 % (34.0-46.0); HGB 12.5 gm/dL (11.4-16.0); Lymphocytes % (A) 27 %; MCHC 33.3 g/dL (31.0-37.0); MCV 93.1 fL (80.0-100.0); Mean Platelet Volume 7.7; Monocytes # (A) 0.3 k/uL (0-1.0); Monocytes % (A) 4 %; Neutrophils # (A) 4.8 k/uL (1.3-7.7); Neutrophils % (A) 63 %; Platelet Count 245 k/uL (150-450); RBC 4.03 m/uL (3.80-5.40); RDW 14.1 % (11.5-15.5); WBC 7.6 k/uL (3.8-10.6)
--- NOTE | 2021-08-10 21:53 | XR ---
EXAMINATION TYPE: XR abdomen acute w cxr DATE OF EXAM: 08/10/2021 9:37 PM INDICATION: Patient age:Female; 51 years old; Reason for study: Abdominal pain; COMPARISON: CT abdomen pelvis 07/12/2021 TECHNIQUE: Two radiographic views of the abdomen and an a chest radiograph were obtained. FINDINGS CHEST: Lungs/Pleura: The lungs are clear. There is no evidence of pleural effusion, focal consolidation or p neumothorax. Mediastinum: Unremarkable. Vasculature: Normal. Heart: The heart is prominent in size. Musculoskeletal: The osseous structures are intact. FINDINGS ABDOMEN: Bowel gas pattern: Prominent gas-filled colon most pronounced on the left. Otherwise, the bowel gas pattern is grossly unremarkable and nonspecific. Abnormal calcifications: None. Musculoskeletal: Multiple level disc degeneration changes. Other: Cholecystectomy clips. IMPRESSION: 1. Nonspecific gas-filled loops of large bowel most pronounced in the left abdomen. No radiographic e vidence for obstruction. 2. No acute cardiopulmonary process
[2021-08-10 22:08] LABS: Appearance,Urine Clear (Clear); Bilirubin,Urine Negative (Negative); Blood,Urine Negative (Negative); Color,Urine Light Yellow; Glucose,Urine (UA) Negative (Negative); Ketones,Urine Negative (Negative); Leukocyte Esterase,Urine Trace (Negative); Mucus,Urine Rare /hpf; Nitrite,Urine Negative (Negative); PH, Urine 5.5 (5.0-8.0); Protein,Urine Negative (Negative); RBC,Urine <1 /hpf (0-5); Specific Gravity,Urine 1.009 (1.001-1.035); Squamous Epithelial Cell,Urine 3 /hpf (0-4); Urobilinogen,Urine <2.0 mg/dL (<2.0); WBC,Urine 2 /hpf (0-5)
[2021-08-10 23:01] LABS: ALT 14 U/L (4-34); AST 21 U/L (14-36); African American GFR (CKD) >90 (>60 ml/min/1.73 sqM); Albumin 3.8 g/dL (3.5-5.0); Alkaline Phosphatase 103 U/L (38-126); Anion Gap 5 mmol/L; Blood Urea Nitrogen 10 mg/dL (7-17); Calcium 8.7 mg/dL (8.4-10.2); Carbon Dioxide 29 mmol/L (22-30); Chloride 105 mmol/L (98-107); Glucose 104 mg/dL (74-99); Lipase 44 U/L (23-300); Non-African American GFR(CKD) >90 (>60 ml/min/1.73 sqM); Potassium 4.3 mmol/L (3.5-5.1); Sodium 139 mmol/L (137-145); Total Bilirubin 0.8 mg/dL (0.2-1.3); Total Protein 6.2 g/dL (6.3-8.2)
--- NOTE | 2021-08-11 00:44 | CT ---
EXAMINATION TYPE: CT abdomen pelvis wo con DATE OF EXAM: 08/10/2021 COMPARISON: 07/12/2021 HISTORY: LLQ PAIN CT DLP: 1362.2 mGycm Automated exposure control for dose reduction was used. Images obtained from the diaphragm to the floor of the pelvis with no contrast. Lung bases are clear of infiltrate. No pleural effusion. There is previous gastric bariatric surgery. Liver and spleen are intact. There are clips from cholecystectomy. The bile ducts are not dilated. N o pancreatic mass. There is no adrenal mass. Kidneys have normal size. No hydronephrosis. Ureters are not dilated. There is no retroperitoneal adenopathy. There is previous surgery at the sigmoid colon. Bladder distends s moothly. No inguinal hernia. No pelvic mass. No free fluid in the pelvis. There are clips apparently from appendectomy. There is no ascites or free air. No sign of a bowel obstruction. There is no mesenteric edema. No intestinal wall thickening. The lumbar vertebra normal alignment. Posterior elements are intact. No compression fracture. The bon y pelvis is intact. IMPRESSION: Previous surgery. No acute abnormality of the abdomen and pelvis. Small densities in the subcutaneous tissues over the anterior abdomen consistent with injection sites. Overall no adverse change compare d to old exam.
[2021-08-11] MEDS ORDERED: ACET/COD 300 MG/30 MG STARTER PACK 6 TAB BTL PO STA (01:33)
[2021-08-11 01:54] VITALS: BP 150/78; PULSE 74
== END 2021-08-11 02:00 | disposition home or self-care (01) ==
LOC: EC 14:20
DX: G89.18 Other acute postprocedural pain (principal); R10.32 Left lower quadrant pain; Z91.040 Latex allergy status; J44.9 Chronic obstructive pulmonary disease, unspecified; E11.9 Type 2 diabetes mellitus without complications; E78.5 Hyperlipidemia, unspecified; I10 Essential (primary) hypertension; Z87.891 Personal history of nicotine dependence; Z82.49 Family history of ischemic heart disease and other diseases of the circulatory system; Z79.83 Long term (current) use of bisphosphonates; Z88.2 Allergy status to sulfonamides; Z88.1 Allergy status to other antibiotic agents; Z88.0 Allergy status to penicillin; Z88.5 Allergy status to narcotic agent; Z91.041 Radiographic dye allergy status; Z91.048 Other nonmedicinal substance allergy status
CPT/HCPCS: 36415; 80053; 83690; 85025; 81001; 74022; 74176; 99284; 96374; 96375; 96361; J2405; J1170

== ENCOUNTER 2021-08-23 02:18 | Observation (INO) | payer BC, MEDICARE ==
[2021-08-23] MEDS ORDERED: SODIUM CHLORIDE 0.9% 1,000 ML IV STA (03:37)
[2021-08-23] MEDS ORDERED: MORPHINE SULFATE 4 MG/ML SYRINGE IV STA (03:37)
[2021-08-23] MEDS ORDERED: ONDANSETRON 4 MG/2 ML VIAL IVP STA (03:37)
[2021-08-23] MEDS ORDERED: diphenhydrAMINE 50 MG/ML 1 ML VIAL IVP STA (03:38)
[2021-08-23] MEDS ORDERED: methylPREDNISolone SOD SUCCI 125 MG/2 ML VIAL IV STA (03:38)
[2021-08-23] MEDS ORDERED: FAMOTIDINE 20 MG/2 ML VIAL IV STA (03:38)
--- NOTE | 2021-08-23 03:39 | ED ---
Recheck HPI - General Chief Complaint: Abdominal Pain Stated Complaint: Post-op abdominal pain Time Seen by Provider: 08/23/21 03:26 Source: patient, RN notes reviewed, old records reviewed Mode of arrival: ambulatory Limitations: no limitations - History of Present Illness Initial Comments: This is a 51-year-old female to the emergency department for evaluation. Patient presents as a postop patient of Dr. Gabriel for intractable abdominal pain. Patient has persistent and intractable abdominal pain here in the emergency department in a postop.. Patient has no fevers mild nausea no vomiting no travel history sick contacts no family members with similar complaints MD Complaint: other (Postoperative abdominal pain) -: days(s) Returns Today for: persistent/worsening pain related to initial visit Symptoms Since Prior Visit: worsening pain Context: ran out of medication Associated Symptoms: abdominal pain Treatments Prior to Arrival: other medications - Related Data Home Medications Medication Instructions Recorded Confirmed Cyclobenzaprine [Flexeril] 10 mg PO BID PRN 08/05/16 07/26/21 Ferrous Sulfate [Feosol] 325 mg PO HS 01/22/18 07/26/21 Metoclopramide HCl [Reglan] 5 mg PO HS PRN 01/22/18 07/26/21 Metoprolol Succinate [Toprol XL] 50 mg PO HS 01/22/18 07/26/21 Nitroglycerin Sl Tabs [Nitrostat] 0.4 mg PO Q5M PRN 01/22/18 07/26/21 Zinc 50 mg PO HS 03/04/18 07/26/21 rOPINIRole HCL [Requip] 2 mg PO BID 03/21/18 07/26/21 Furosemide [Lasix] 20 mg PO HS 05/29/18 07/26/21 lisinopriL [Zestril] 10 mg PO HS 09/03/18 07/26/21 Amitriptyline HCl [Elavil] 75 mg PO HS 06/16/21 07/26/21 Benzonatate [Tessalon Perles] 100 mg PO TID PRN 06/16/21 07/26/21 Calcium Carb-Vit D 250Mg-125Un 1 tab PO HS 06/16/21 07/26/21 [Oscal 250+D 3.125 Mcg (125 Iu)] Famotidine 20 mg PO BID 06/16/21 07/26/21 Magnesium 250 mg PO HS 06/16/21 07/26/21 Pregabalin [Lyrica] 200 mg PO BID 06/16/21 07/26/21 Rizatriptan Benzoate [Rizatriptan] 10 mg PO BID PRN 06/16/21 07/26/21 Rosuvastatin Calcium [Crestor] 40 mg PO HS 06/16/21 07/26/21 SUMAtriptan succinate [Imitrex] 100 mg PO BID PRN 06/16/21 07/26/21 Topiramate [Topamax] 100 mg PO HS 06/16/21 07/26/21 Fluticasone Nasal [place] [Flonase 1 spray EA NOSTRIL Q12H PRN 07/18/21 07/26/21 Nasal [place]] Ondansetron [Zofran ODT] 4 mg PO Q8HR PRN 07/18/21 07/26/21 Simethicone 40 mg/0.6 ml Drops 100 mg PO QID PRN 07/18/21 07/26/21 [Mylicon Drops] Previous Rx's Medication Instructions Recorded Acetaminophen Tab [Tylenol] 1,000 mg PO Q6HR PRN #30 tablet 06/22/21 Dicyclomine [Bentyl] 10 mg PO QID #60 capsule 07/20/21 Acetaminophen Tab [Tylenol Tab] 1,000 mg PO Q6HR PRN #30 tablet 07/28/21 Simethicone [Gas-X] 125 mg PO AC-TID PRN #20 capsule 07/28/21 Docusate [Colace] 100 mg PO DAILY #30 capsule 08/11/21 Allergies Allergy/AdvReac Type Severity Reaction Status Date / Time Sulfa (Sulfonamide Allergy Severe Anaphylaxis Verified 08/23/21 03:20 Antibiotics) adhesive tape Allergy BLISTERS Verified 08/23/21 03:20 amoxicillin [From Augmentin] Allergy Rash/Hives Verified 08/23/21 03:20 clavulanic acid Allergy Rash/Hives Verified 08/23/21 03:20 [From Augmentin] codeine Allergy ABDOMINAL Verified 08/23/21 03:20 PAIN, MIGRAINE HEADACHE Iodinated Contrast Media Allergy Itching Verified 08/23/21 03:20 [Iodinated Contrast- Oral and IV Dye] Penicillins Allergy Rash/Hives/Itching/Gi Verified 08/23/21 03:20 Upset adhesive AdvReac Itching Verified 08/23/21 03:20 artificial sweetners Allergy Nausea, Uncoded 08/23/21 03:20 MIGRAINE HEADACHE Review of Systems ROS Statement: Those systems with pertinent positive or pertinent negative responses have been documented in the HPI. ROS Other: All systems not noted in ROS Statement are negative. Past Medical History Past Medical History: Asthma, Blood Disorder, Chest Pain / Angina, COPD, Diabetes Mellitus, Fibromyalgia, GERD/Reflux, Hearing Disorder / Deafness, Hyperlipidemia, Hypertension, Liver Disease, Mitral Valve Prolapse (MVP), Muscu loskeletal Disorder, Osteoarthritis (OA), Pneumonia, Respiratory Disorder, Sleep Apnea/CPAP/BIPAP Additional Past Medical History / Comment(s): MIGRAINES, DEGENERATIVE DISC D ISEASE, FATTY LIVER, LEIDEN FACTOR 5, OCCASIONAL SWELLING IN LOWER EXT.NEUROPATHY, RLS, diabetes is in remission since surgery, chronic back pain, PATIENT HAS BEEN OFF MEDS FOR DIABETES SINCE BARIATRIC SURGERY History of Any Multi-Drug Resistant Organisms: ESBL Date of last positivie culture/infection: 09/15/18 MDRO Source:: ESBL URINE Past Surgical History: Adenoidectomy, Appendectomy, Bariatric Surgery, Bowel Resection, Breast Surgery, Section, Cholecystectomy, Ear Surgery, Heart Catheterization, Hernia Repair, Orthopedic Surgery, Tonsillectomy Additional Past Surgical History / Comment(s): ARTHROSCOPY RT KNEE X3, RT BREAST BX-NEG, (13) MYRINGOTOMYS. laparoscopic danielle-en-y with lysis of adhesions 2013; Surgical wound debridement x3 ; SX TO REMOVED SCAR TISSUE FROM PREVIOUS ABD SX;EGD ; LAP EXAM- APPY SMALL BOWEL OBSTRUCTION LYSIS OF ADHESIONS, 3 hernia repairs, 3 bowel resection, 07/2016 colon resection, adhesions removed 03/2018, part of colon and bowel removed 08/09 Past Anesthesia/Blood Transfusion Reactions: No Reported Reaction Additional Past Anesthesia/Blood Transfusion Reaction / Comment(s): SEVERE HEADACHE AFTER LAST SCOPE, clausterphobia Past Psychological History: Anxiety, Bipolar, Depression, PTSD Smoking Status: Former smoker Past Alcohol Use History: Occasional Past Drug Use History: None Reported - Past Family History Mother Family Medical History: Deep Vein Thrombosis (DVT), Hypertension, Pulmonary Embolus, Thyroid Disorder Additional Family Medical History / Comment(s): FACTOR 5 LEIDEN, MVP Father Family Medical History: Diabetes Mellitus, Hypertension, Myocardial Infarction ([place]) Additional Family Medical History / Comment(s): AGE 59 [place] General Exam General appearance: alert, in no apparent distress Head exam: Present: atraumatic, normocephalic, normal inspection Eye exam: Present: normal appearance, PERRL, EOMI. Absent: scleral icterus, conjunctival injection, periorbital swelling ENT exam: Present: normal exam, mucous membranes moist Neck exam: Present: normal inspection. Absent: tenderness, meningismus, lymphadenopathy Respiratory exam: Present: normal lung sounds bilaterally. Absent: respiratory distress, wheezes, rales, rhonchi, stridor Cardiovascular Exam: Present: regular rate, normal rhythm, normal heart sounds. Absent: systolic murmur, diastolic murmur, rubs, gallop, clicks GI/Abdominal exam: Present: soft, normal bowel sounds. Absent: distended, tenderness, guarding, rebound, rigid Extremities exam: Present: normal inspection, full ROM, normal capillary refill. Absent: tenderness, pedal edema, joint swelling, calf tenderness Back exam: Present: normal inspection Neurological exam: Present: alert, oriented X3, CN II-XII intact Psychiatric exam: Present: normal affect, normal mood Skin exam: Present: warm, dry, intact, normal color. Absent: rash Course Vital Signs 08/23/21 08/23/21 03:16 05:27 Temperature 98.6 F Pulse Rate 70 87 Respiratory 19 Rate Blood Pressure 177/82 167/77 O2 Sat by Pulse 98 Oximetry - Reevaluation(s) Reevaluation #1: 08/23/21 04:24 Medical records reviewed Medical Decision Making - Lab Data Result diagrams: 08/23/21 04:05 08/23/21 04:05 Lab Results 08/23/21 08/23/21 08/23/21 Range/Units 04:05 04:05 04:05 WBC 8.4 (3.8-10.6) k/uL RBC 3.87 (3.80-5.40) m/uL Hgb 12.2 (11.4-16.0) gm/dL Hct 34.7 (34.0-46.0) % MCV 89.8 (80.0-100.0) fL MCH 31.6 (25.0-35.0) pg MCHC 35.2 (31.0-37.0) g/dL RDW 13.5 (11.5-15.5) % Plt Count 258 (150-450) k/uL MPV 7.3 Neutrophils % 65 % Lymphocytes % 25 % Monocytes % 5 % Eosinophils % 2 % Basophils % 2 % Neutrophils # 5.4 (1.3-7.7) k/uL Lymphocytes # 2.1 (1.0-4.8) k/uL Monocytes # 0.4 (0-1.0) k/uL Eosinophils # 0.2 (0-0.7) k/uL Basophils # 0.2 (0-0.2) k/uL Sodium 136 L (137-145) mmol/L Potassium 3.8 (3.5-5.1) mmol/L Chloride 103 (98-107) mmol/L Carbon Dioxide 24 (22-30) mmol/L Anion Gap 9 mmol/L BUN 9 (7-17) mg/dL Creatinine 0.61 (0.52-1.04) mg/dL Est GFR (CKD-EPI)AfAm >90 (>60 ml/min/1.73 sqM) Est GFR (CKD-EPI)NonAf >90 (>60 ml/min/1.73 sqM) Glucose 155 H (74-99) mg/dL Plasma Lactic Acid Esteban 1.3 (0.7-2.0) mmol/L Calcium 9.0 (8.4-10.2) mg/dL Total Bilirubin 1.2 (0.2-1.3) mg/dL AST 23 (14-36) U/L ALT 13 (4-34) U/L Alkaline Phosphatase 120 (38-126) U/L Total Protein 7.0 (6.3-8.2) g/dL Albumin 4.4 (3.5-5.0) g/dL Amylase 47 (30-110) U/L Lipase 40 (23-300) U/L Urine Color Urine Appearance (Clear) Urine pH (5.0-8.0) Ur Specific [place] (1.001-1.035) Urine Protein (Negative) Urine Glucose (UA) (Negative) Urine Ketones (Negative) Urine Blood (Negative) Urine Nitrite (Negative) Urine Bilirubin (Negative) Urine Urobilinogen (<2.0) mg/dL Ur Leukocyte Esterase (Negative) 08/23/21 Range/Units 05:25 WBC (3.8-10.6) k/uL RBC (3.80-5.40) m/uL Hgb (11.4-16.0) gm/dL Hct (34.0-46.0) % MCV (80.0-100.0) fL MCH (25.0-35.0) pg MCHC (31.0-37.0) g/dL RDW (11.5-15.5) % Plt Count (150-450) k/uL MPV Neutrophils % % Lymphocytes % % Monocytes % % Eosinophils % % Basophils % % Neutrophils # (1.3-7.7) k/uL Lymphocytes # (1.0-4.8) k/uL Monocytes # (0-1.0) k/uL Eosinophils # (0-0.7) k/uL Basophils # (0-0.2) k/uL Sodium (137-145) mmol/L Potassium (3.5-5.1) mmol/L Chloride (98-107) mmol/L Carbon Dioxide (22-30) mmol/L Anion Gap mmol/L BUN (7-17) mg/dL Creatinine (0.52-1.04) mg/dL Est GFR (CKD-EPI)AfAm (>60 ml/min/1.73 sqM) Est GFR (CKD-EPI)NonAf (>60 ml/min/1.73 sqM) Glucose (74-99) mg/dL Plasma Lactic Acid [place] (0.7-2.0) mmol/L Calcium (8.4-10.2) mg/dL Total Bilirubin (0.2-1.3) mg/dL AST (14-36) U/L ALT (4-34) U/L Alkaline Phosphatase (38-126) U/L Total Protein (6.3-8.2) g/dL Albumin (3.5-5.0) g/dL Amylase (30-110) U/L Lipase (23-300) U/L Urine Color Light Yellow Urine Appearance Clear (Clear) Urine pH 6.5 (5.0-8.0) Ur Specific [place] 1.008 (1.001-1.035) Urine Protein Negative (Negative) Urine Glucose (UA) Negative (Negative) Urine Ketones Negative (Negative) Urine Blood Negative (Negative) Urine Nitrite Negative (Negative) Urine Bilirubin Negative (Negative) Urine Urobilinogen <2.0 (<2.0) mg/dL Ur Leukocyte Esterase Negative (Negative) Disposition Disposition: ADMITTED IP TO THIS HOSP Condition: Fair Is patient prescribed a controlled substance at d/c from ED?: No Referrals: Nonstaff,Physician [Primary Care Provider] - 1-2 days
[2021-08-23 04:16] LABS: Basophils # (A) 0.2 k/uL (0-0.2); Basophils % (A) 2 %; Eosinophils # (A) 0.2 k/uL (0-0.7); Eosinophils % (A) 2 %; HCT 34.7 % (34.0-46.0); HGB 12.2 gm/dL (11.4-16.0); Lymphocytes # (A) 2.1 k/uL (1.0-4.8); Lymphocytes % (A) 25 %; MCH 31.6 pg (25.0-35.0); MCHC 35.2 g/dL (31.0-37.0); MCV 89.8 fL (80.0-100.0); Mean Platelet Volume 7.3; Monocytes # (A) 0.4 k/uL (0-1.0); Monocytes % (A) 5 %; Neutrophils # (A) 5.4 k/uL (1.3-7.7); Neutrophils % (A) 65 %; Platelet Count 258 k/uL (150-450); RBC 3.87 m/uL (3.80-5.40); RDW 13.5 % (11.5-15.5); WBC 8.4 k/uL (3.8-10.6)
[2021-08-23 04:42] LABS: ALT 13 U/L (4-34); AST 23 U/L (14-36); African American GFR (CKD) >90 (>60 ml/min/1.73 sqM); Albumin 4.4 g/dL (3.5-5.0); Alkaline Phosphatase 120 U/L (38-126); Amylase 47 U/L (30-110); Anion Gap 9 mmol/L; Blood Urea Nitrogen 9 mg/dL (7-17); Carbon Dioxide 24 mmol/L (22-30); Chloride 103 mmol/L (98-107); Glucose 155 mg/dL (74-99); Lipase 40 U/L (23-300); Non-African American GFR(CKD) >90 (>60 ml/min/1.73 sqM); Potassium 3.8 mmol/L (3.5-5.1); Sodium 136 mmol/L (137-145); Total Bilirubin 1.2 mg/dL (0.2-1.3)
[2021-08-23] MEDS ORDERED: HYDROmorphone 1 MG/ML 1 ML SYRINGE IVP STA ×2 (05:11→06:36)
[2021-08-23] MEDS ORDERED: METOCLOPRAMIDE 5 MG/ML 2 ML VIAL IVP STA (05:33)
[2021-08-23 05:34] LABS: Appearance,Urine Clear (Clear); Bilirubin,Urine Negative (Negative); Blood,Urine Negative (Negative); Color,Urine Light Yellow; Glucose,Urine (UA) Negative (Negative); Ketones,Urine Negative (Negative); Leukocyte Esterase,Urine Negative (Negative); Nitrite,Urine Negative (Negative); PH, Urine 6.5 (5.0-8.0); Protein,Urine Negative (Negative); Specific Gravity,Urine 1.008 (1.001-1.035); Urobilinogen,Urine <2.0 mg/dL (<2.0)
--- NOTE | 2021-08-23 06:23 | CT ---
EXAMINATION TYPE: CT abdomen pelvis w con DATE OF EXAM: 08/23/2021 HISTORY: Increased abdominal pain after bowel surgery. History of appendectomy, cholecystectomy, zahida ia repair surgery, bowel surgery, and gastric surgery. CT DLP: 738.9mGycm Automated Exposure Control for Dose Reduction was Utilized. CONTRAST: CT scan of the abdomen and pelvis is performed without oral but with IV Contrast, patient injected wi th 100 mL of Isovue 300. COMPARISON: Most recent CT August 10, 2021 and older CTs FINDINGS: LUNG BASES: Coronary artery calcification is redemonstrated. LIVER/GB: Cholecystectomy clips are redemonstrated. PANCREAS: No significant abnormality is seen. SPLEEN: No significant abnormality is seen. ADRENALS: No significant abnormality is seen. KIDNEYS: Symmetric cortical medullary uptake and excretion without hydronephrosis seen bilaterally. M ild to moderately distended bladder. BOWEL: Suboptimal evaluation bowel without enteric contrast. Surgical changes from gastric bypass pro cedure epigastric region are noted. No suspicious small or large bowel dilatation. UTERUS/ADNEXA: Anteverted uterus. Occasional scattered pelvic phleboliths redemonstrated. LYMPH NODES: No greater than 1cm abdominal or pelvic lymph nodes are appreciated. OSSEOUS STRUCTURES: No significant abnormality is seen. OTHER: Mild calcified plaque of the aorta extends into branch vessels. Areas of surgical scarring and soft tissue nodularity in the anterior abdominal wall redemonstrated. IMPRESSION: No significant acute finding is seen to account for patient's clinical symptoms. No signi ficant change from most recent prior CTs.
[2021-08-23] MEDS ORDERED: ONDANSETRON 4 MG/2 ML VIAL IVP PRN (06:35)
[2021-08-23] MEDS ORDERED: HYDROmorphone 1 MG/ML 1 ML SYRINGE IVP PRN (06:35)
[2021-08-23] MEDS ORDERED: NALOXONE 0.4 MG/ML 1 ML VIAL IV PRN (06:35)
[2021-08-23] MEDS ORDERED: diphenhydrAMINE 50 MG/ML 1 ML VIAL IVP PRN (06:36)
[2021-08-23] MEDS: SODIUM CHLORIDE 0.9% 1,000 ML IV SCH ×2 (08:03→15:17)
[2021-08-23] MEDS ORDERED: PANTOPRAZOLE 40 MG/10 ML VIAL IV SCH (09:00)
[2021-08-23 13:59] VITALS: BP 120/59; PULSE 77; RESP 16; TEMP 98.6
--- NOTE | 2021-08-23 14:04 | P.GSHP ---
History of Present Illness H&P Date: 08/23/21 CHIEF COMPLAINT: Abdominal pain HISTORY OF PRESENT ILLNESS: This is a 51-year-old female who presented to the hospital with complaints of lower abdominal pain. Patient has history of intermittent large bowel obstruction due to recurrent sigmoid volvulus s status post sigmoid colectomy with lower anterior resection on 07/27/2021. Patient reports that 2 weeks ago she had a trip and had started to fall out on her deck at home. She caught herself on the railing. However, she reports that at that time she did twisting and kind of jar her new abdominal incisions. She had no bleeding or oozing from the incisions. She had gone to the ER for evaluation and CAT scan was completed with no acute abnormality. And patient was able to be discharged home. She followed up with Dr. Dumont in the office. Per patient Dr. Gabriel had ordered a regimen of medications to help with her pain. Patient reports that those medications were helping. However, on Saturday this week she started again having lower abdominal pain. She did have an episode of nausea and vomiting last night. A computed tomography scan of the abdomen and pelvis with IV contrasted completed in the ER was negative. She r eports that her pain is doing better this morning with her current pain medication. She denies any fever chills or sweats. Patient reports having bowel movements. PAST MEDICAL HISTORY: See list. PAST SURGICAL HISTORY: See list. MEDICATIONS: See list. ALLERGIES: See list. SOCIAL HISTORY: No illicit drug use. REVIEW OF SYSTEMS: CONSTITUTIONAL: Denies fever or chills. HEENT: Denies blurred vision, vision changes, or eye pain. Denies hemoptysis ENDOCRINE: Denies heat or cold intolerance. CARDIOVASCULAR: Denies chest pain or pressure. RESPIRATORY: No shortness of breath. GASTROINTESTINAL: Denies abdominal pain. Denies nausea or vomiting. NEURO: Denies history of seizures. PSYCH: No depression or suicidal ideation HEMATOLOGIC: Denies bleeding disorders. LYMPHATIC: The patient denies any lumps and bumps around the neck. GENITOURINARY: Denies any blood in urine or increased urinary frequency. MUSCULOSKELETAL: Denies myalgias. Denies joint swelling. Denies decreased range of motion beyond patients baseline. SKIN: Denies pruitis. Denies rash. PHYSICAL EXAM: VITAL SIGNS: Reviewed GENERAL: Well-developed in no acute distress. HEENT: No sclera icterus. Extraocular movements grossly intact. Moist buccal mucosa. Head is atraumatic, normocephalic. Hears conversational speech. No nasal drainage. NECK: Supple without lymphadenopathy. CHEST: Non-labored respirations and equal bilateral excursions. CARDIOVASCULAR: Palpable 2+ radial pulses. ABDOMEN: Soft. Nondistended. Mild tenderness with palpation of the lower abdomen. Incision sites are clean dry and intact. MUSCULOSKELETAL: No clubbing or cyanosis. NEUROLOGIC: No focal or lateralizing signs. Cranial nerves II through XII grossly intact. PSYCH: Appropriate affect. Alert and oriented to person, place and time. SKIN: Well perfused. Good skin turgor. LABORATORY DATA: WBC is 8.4 Hgb 12.2 platelets 258 Sodium 136 potassium 3.8 creatinine 0.61 Lactic acid 1.3 LFTs normal Lipase 40 Urinalysis negative for infection IMAGING: Computed tomography scan abdomen and pelvis no acute findings to account for patient's clinical symptoms. No significant change from most recent prior CTs. ASSESSMENT: 1. Abdominal pain with trip and fall. Negative computed tomography scan 2. Recent sigmoid colectomy with lower anterior resection 3. History of gastric bypass for obesity 4. Morbid obesity 5. Fibromyalgia 6. GERD 7. Diabetes mellitus PLAN: -Advance diet to clear liquids and then to regular -Abdominal binder ordered -Continue pain management -Possible discharge later today if tolerating regular diet Physician Second Baller note has been reviewed by physician. Signing provider agrees with the documented findings, assessment, and plan of care. Past Medical History Past Medical History: Asthma, Blood Disorder, Chest Pain / Angina, COPD, Diabete s Mellitus, Fibromyalgia, GERD/Reflux, Hearing Disorder / Deafness, Hyperlipidemia, Hypertension, Liver Disease, Mitral Valve Prolapse (MVP), Musculoskeletal Disorder, Osteoarthritis (OA), Pneumonia, Respiratory Disorder, Sleep Apnea/CPAP/BIPAP Additional Past Medical History / Comment(s): MIGRAINES, DEGENERATIVE DISC DISEASE, FATTY LIVER, LEIDEN FACTOR 5, OCCASIONAL SWELLING IN LOWER EXT.NEUROPATHY, RLS, diabetes is in remission since surgery, chronic back pain, PATIENT HAS BEEN OFF MEDS FOR DIABETES SINCE BARIATRIC SURGERY History of Any Multi-Drug Resistant Organisms: ESBL Date of last positivie culture/infection: 09/15/18 MDRO Source:: ESBL URINE Past Surgical History: Adenoidectomy, Appendectomy, Bariatric Surgery, Bowel Resection, Breast Surgery, Section, Cholecystectomy, Ear Surgery, Heart Catheterization, Hernia Repair, Orthopedic Surgery, Tonsillectomy Additional Past Surgical History / Comment(s): ARTHROSCOPY RT KNEE X3, RT BREAST BX-NEG, (13) MYRINGOTOMYS. laparoscopic danielle-en-y with lysis of adhesions 2013; Surgical wound debridement x3 ; SX TO REMOVED SCAR TISSUE FROM PREVIOUS ABD SX;EGD ; LAP EXAM- APPY SMALL BOWEL OBSTRUCTION LYSIS OF ADHESIONS, 3 hernia repairs, 3 bowel resection, 07/2016 colon resection, adhesions removed 03/2018, part of colon and bowel removed 08/09 Past Anesthesia/Blood Transfusion Reactions: No Reported Reaction Additional Past Anesthesia/Blood Transfusion Reaction / Comment(s): SEVERE HEADACHE AFTER LAST SCOPE, clausterphobia Past Psychological History: Anxiety, Bipolar, Depression, PTSD Additional Psychological History / Comment(s): SOCIAL PHOBIA. pt lives with special needs son. has cpap machine-NO LONGER USING, and cane that she uses as needed Smoking Status: Former smoker Past Alcohol Use History: Occasional Additional Past Alcohol Use History / Comment(s): OCC CIG USE IN PAST age 20 to age 21- ONE CIG PER MONTH OR LESS Past Drug Use History: None Reported Additional Drug Use History / Comment(s): OCCASIONAL MARIJUANA-INSTRUCTED TO REFRAIN FROM USE FOR AT LEAST 24 HOURS PRIOR TO PROCEDURE - Past Family History Mother Family Medical History: Deep Vein Thrombosis (DVT), Hypertension, Pulmonary Embolus, Thyroid Disorder Additional Family Medical History / Comment(s): FACTOR 5 LEIDEN, MVP Father Family Medical History: Diabetes Mellitus, Hypertension, Myocardial Infarction ([place]) Additional Family Medical History / Comment(s): AGE 59 [place] Medications and Allergies Home Medications Medication Instructions Recorded Confirmed Type Cyclobenzaprine [Flexeril] 10 mg PO BID PRN 08/05/16 08/23/21 History Ferrous Sulfate [Feosol] 325 mg PO HS 01/22/18 08/23/21 History Metoclopramide HCl [Reglan] 5 mg PO HS PRN 01/22/18 08/23/21 History Metoprolol Succinate [Toprol XL] 50 mg PO HS 01/22/18 08/23/21 History Nitroglycerin Sl Tabs [Nitrostat] 0.4 mg PO Q5M PRN 01/22/18 08/23/21 History Zinc 50 mg PO HS 03/04/18 08/23/21 History rOPINIRole HCL [Requip] 2 mg PO BID 03/21/18 08/23/21 History Furosemide [Lasix] 20 mg PO HS 05/29/18 08/23/21 History lisinopriL [Zestril] 10 mg PO HS 09/03/18 08/23/21 History Amitriptyline HCl [Elavil] 75 mg PO HS 06/16/21 08/23/21 History Benzonatate [Tessalon Perles] 100 mg PO TID PRN 06/16/21 08/23/21 History Calcium Carb-Vit D 250Mg-125Un 1 tab PO HS 06/16/21 08/23/21 History [Oscal 250+D 3.125 Mcg (125 Iu)] Famotidine 20 mg PO BID 06/16/21 08/23/21 History Magnesium 250 mg PO HS 06/16/21 08/23/21 History Pregabalin [Lyrica] 200 mg PO BID 06/16/21 08/23/21 History Rizatriptan Benzoate [Rizatriptan] 10 mg PO BID PRN 06/16/21 08/23/21 History Rosuvastatin Calcium [Crestor] 40 mg PO HS 06/16/21 08/23/21 History SUMAtriptan succinate [Imitrex] 100 mg PO BID PRN 06/16/21 08/23/21 History Topiramate [Topamax] 100 mg PO HS 06/16/21 08/23/21 History Acetaminophen Tab [Tylenol] 1,000 mg PO Q6HR PRN #30 tablet 06/22/21 08/23/21 Rx Fluticasone Nasal [place] [Flonase 1 spray EA NOSTRIL Q12H PRN 07/18/21 08/23/21 History Nasal [place]] Ondansetron [Zofran ODT] 4 mg PO Q8HR PRN 07/18/21 08/23/21 History Dicyclomine [Bentyl] 10 mg PO QID #60 capsule 07/20/21 08/23/21 Rx Simethicone [Gas-X] 125 mg PO AC-TID PRN #20 capsule 07/28/21 08/23/21 Rx Docusate [Colace] 100 mg PO DAILY #30 capsule 08/11/21 08/23/21 Rx Ergocalciferol [Vitamin D2 (1250 1,250 mcg PO [place] 08/23/21 08/23/21 History Mcg = 56140 Iu)] Sennosides/Docusate Sodium [Senna 2 tab PO DAILY 08/23/21 08/23/21 History Plus 8.6-50 mg Tablet] Allergies Allergy/AdvReac Type Severity Reaction Status Date / Time Sulfa (Sulfonamide Allergy Severe Anaphylaxis Verified 08/23/21 03:20 Antibiotics) adhesive tape Allergy BLISTERS Verified 08/23/21 03:20 amoxicillin [From Augmentin] Allergy Rash/Hives Verified 08/23/21 03:20 clavulanic acid Allergy Rash/Hives Verified 08/23/21 03:20 [From Augmentin] codeine Allergy ABDOMINAL Verified 08/23/21 03:20 PAIN, MIGRAINE HEADACHE Iodinated Contrast Media Allergy Itching Verified 08/23/21 03:20 [Iodinated Contrast- Oral and IV Dye] Penicillins Allergy Rash/Hives/Itching/Gi Verified 08/23/21 03:20 Upset adhesive AdvReac Itching Verified 08/23/21 03:20 artificial sweetners Allergy Nausea, Uncoded 08/23/21 03:20 MIGRAINE HEADACHE Surgical - Exam Vital Signs Temp Pulse Resp BP Pulse Ox 98.6 F 70 19 177/82 98 08/23/21 03:16 08/23/21 03:16 08/23/21 03:16 08/23/21 03:16 08/23/21 03:16 Results - Labs 08/23/21 04:05 08/23/21 04:05 Abnormal Lab Results - Last 24 Hours (Table) 08/23/21 Range/Units 04:05 Sodium 136 L (137-145) mmol/L Glucose 155 H (74-99) mg/dL Diabetes panel 08/23/21 Range/Units 04:05 Sodium 136 L (137-145) mmol/L Potassium 3.8 (3.5-5.1) mmol/L Chloride 103 (98-107) mmol/L Carbon Dioxide 24 (22-30) mmol/L BUN 9 (7-17) mg/dL Creatinine 0.61 (0.52-1.04) mg/dL Glucose 155 H (74-99) mg/dL Calcium 9.0 (8.4-10.2) mg/dL AST 23 (14-36) U/L ALT 13 (4-34) U/L Alkaline Phosphatase 120 (38-126) U/L Total Protein 7.0 (6.3-8.2) g/dL Albumin 4.4 (3.5-5.0) g/dL Calcium panel 08/23/21 Range/Units 04:05 Calcium 9.0 (8.4-10.2) mg/dL Albumin 4.4 (3.5-5.0) g/dL Pituitary panel 08/23/21 Range/Units 04:05 Sodium 136 L (137-145) mmol/L Potassium 3.8 (3.5-5.1) mmol/L Chloride 103 (98-107) mmol/L Carbon Dioxide 24 (22-30) mmol/L BUN 9 (7-17) mg/dL Creatinine 0.61 (0.52-1.04) mg/dL Glucose 155 H (74-99) mg/dL Calcium 9.0 (8.4-10.2) mg/dL Adrenal panel 08/23/21 Range/Units 04:05 Sodium 136 L (137-145) mmol/L Potassium 3.8 (3.5-5.1) mmol/L Chloride 103 (98-107) mmol/L Carbon Dioxide 24 (22-30) mmol/L BUN 9 (7-17) mg/dL Creatinine 0.61 (0.52-1.04) mg/dL Glucose 155 H (74-99) mg/dL Calcium 9.0 (8.4-10.2) mg/dL Total Bilirubin 1.2 (0.2-1.3) mg/dL AST 23 (14-36) U/L ALT 13 (4-34) U/L Alkaline Phosphatase 120 (38-126) U/L Total Protein 7.0 (6.3-8.2) g/dL Albumin 4.4 (3.5-5.0) g/dL
[2021-08-23] MEDS ORDERED: METOCLOPRAMIDE 5 MG TAB PO PRN (14:20)
[2021-08-23] MEDS ORDERED: SIMETHICONE 80 MG CHEWABLE PO PRN (14:20)
[2021-08-23] MEDS ORDERED: FLUTICASONE 50MCG/SPRAY NASAL 16GM EA NOSTRIL PRN (14:20)
[2021-08-23] MEDS ORDERED: SUMAtriptan succinate 50 MG TAB PO PRN (14:20)
[2021-08-23] MEDS ORDERED: SUMATRIPTAN SUCCINATE 100 MG PO PRN (14:20)
[2021-08-23] MEDS ORDERED: DOCUSATE 100 MG CAP PO SCH (14:30)
[2021-08-23] MEDS ORDERED: ACETAMINOPHEN IV (For NPO) 1,000 MG in EMPTY BAG 1 BAG IVPB SCH (15:00)
--- NOTE | 2021-08-23 15:25 | P.DS ---
Providers Date of admission: 08/23/21 06:35 Expected date of discharge: 08/23/21 Attending physician: Latricia Dumont Primary care physician: Physician Nonstaff Hospital Course: Discharge diagnosis 1. Abdominal pain with trip and fall. Negative computed tomography scan 2. Recent sigmoid colectomy with lower anterior resection 3. History of gastric bypass for obesity 4. Morbid obesity 5. Fibromyalgia 6. GERD 7. Diabetes mellitus Hospital course This is a 51-year-old female who presented to the hospital with complaints of lower abdominal pain. Patient has history of intermittent large bowel obstruction due to recurrent sigmoid volvulus s status post sigmoid colectomy with lower anterior resection on 07/27/2021. Patient reports that 2 weeks ago she had a trip and had started to fall out on her deck at home. She caught herself on the railing. However, she reports that at that time she did twisting and kind of jar her new abdominal incisions. She had no bleeding or oozing from the incisions. She had gone to the ER for evaluation and CAT scan was completed with no acute abnormality. And patient was able to be discharged home. She followed up with Dr. Dumont in the office. Per patient Dr. Dumont had ordered a regimen of medications to help with her pain. Patient reports that those medications were helping. However, on Saturday this week she started again having lower abdominal pain. She did have an episode of nausea and vomiting last night. A computed tomography scan of the abdomen and pelvis with IV contrasted completed in the ER was negative. She reports that her pain is doing better this morning with her current pain medication. She denies any fever chills or sweats. Patient reports having bowel movements. Patient tolerated regular diet at lunch time. She reports that her pain is tolerable. She is afebrile. Patient wants to be discharged home. Patient is stable for discharge home. Physician Conservation Science Officer note has been reviewed by physician. Signing provider agrees with the documented findings, assessment, and plan of care. Patient Condition at Discharge: Stable Plan - Discharge Summary Discharge Rx Participant: Yes New Discharge Prescriptions: Continue Cyclobenzaprine [Flexeril] 10 mg PO BID PRN PRN Reason: Muscle Pain Nitroglycerin Sl Tabs [Nitrostat] 0.4 mg PO Q5M PRN PRN Reason: Chest Pain Metoprolol Succinate [Toprol XL] 50 mg PO HS Metoclopramide HCl [Reglan] 5 mg PO HS PRN PRN Reason: Nausea Ferrous Sulfate [Feosol] 325 mg PO HS Zinc 50 mg PO HS rOPINIRole HCL [Requip] 2 mg PO BID Furosemide [Lasix] 20 mg PO HS lisinopriL [Zestril] 10 mg PO HS Topiramate [Topamax] 100 mg PO HS Pregabalin [Lyrica] 200 mg PO BID Fluticasone Nasal [place] [Flonase Nasal [place]] 1 spray EA NOSTRIL Q12H PRN PRN Reason: Allergy Symptoms Rosuvastatin Calcium [Crestor] 40 mg PO HS SUMAtriptan succinate [Imitrex] 100 mg PO BID PRN PRN Reason: Migraine Headache Rizatriptan Benzoate [Rizatriptan] 10 mg PO BID PRN PRN Reason: Migraine Headache Magnesium 250 mg PO HS Famotidine 20 mg PO BID Calcium Carb-Vit D 250Mg-125Un [Oscal 250+D 3.125 Mcg (125 Iu)] 1 tab PO HS Benzonatate [Tessalon Perles] 100 mg PO TID PRN PRN Reason: Cough Amitriptyline HCl [Elavil] 75 mg PO HS Acetaminophen Tab [Tylenol] 1,000 mg PO Q6HR PRN #30 tablet PRN Reason: Pain Ondansetron [Zofran ODT] 4 mg PO Q8HR PRN PRN Reason: Nausea Dicyclomine [Bentyl] 10 mg PO QID #60 capsule Simethicone [Gas-X] 125 mg PO AC-TID PRN #20 capsule PRN Reason: Pain Docusate [Colace] 100 mg PO DAILY #30 capsule Ergocalciferol [Vitamin D2 (1250 Mcg = 39445 Iu)] 1,250 mcg PO MO Sennosides/Docusate Sodium [Senna Plus 8.6-50 mg Tablet] 2 tab PO DAILY Discharge Medication List Cyclobenzaprine [Flexeril] 10 mg PO BID PRN 08/05/16 [History] Ferrous Sulfate [Feosol] 325 mg PO HS 01/22/18 [History] Metoclopramide HCl [Reglan] 5 mg PO HS PRN 01/22/18 [History] Metoprolol Succinate [Toprol XL] 50 mg PO HS 01/22/18 [History] Nitroglycerin Sl Tabs [Nitrostat] 0.4 mg PO Q5M PRN 01/22/18 [History] Zinc 50 mg PO HS 03/04/18 [History] rOPINIRole HCL [Requip] 2 mg PO BID 03/21/18 [History] Furosemide [Lasix] 20 mg PO HS 05/29/18 [History] lisinopriL [Zestril] 10 mg PO HS 09/03/18 [History] Amitriptyline HCl [Elavil] 75 mg PO HS 06/16/21 [History] Benzonatate [Tessalon Perles] 100 mg PO TID PRN 06/16/21 [History] Calcium Carb-Vit D 250Mg-125Un [Oscal 250+D 3.125 Mcg (125 Iu)] 1 tab PO HS 06/16/21 [History] Famotidine 20 mg PO BID 06/16/21 [History] Magnesium 250 mg PO HS 06/16/21 [History] Pregabalin [Lyrica] 200 mg PO BID 06/16/21 [History] Rizatriptan Benzoate [Rizatriptan] 10 mg PO BID PRN 06/16/21 [History] Rosuvastatin Calcium [Crestor] 40 mg PO HS 06/16/21 [History] SUMAtriptan succinate [Imitrex] 100 mg PO BID PRN 06/16/21 [History] Topiramate [Topamax] 100 mg PO HS 06/16/21 [History] Acetaminophen Tab [Tylenol] 1,000 mg PO Q6HR PRN #30 tablet 06/22/21 [Rx] Fluticasone Nasal [place] [Flonase Nasal [place]] 1 spray EA NOSTRIL Q12H PRN 07/18/21 [History] Ondansetron [Zofran ODT] 4 mg PO Q8HR PRN 07/18/21 [History] Dicyclomine [Bentyl] 10 mg PO QID #60 capsule 07/20/21 [Rx] Simethicone [Gas-X] 125 mg PO AC-TID PRN #20 capsule 07/28/21 [Rx] Docusate [Colace] 100 mg PO DAILY #30 capsule 08/11/21 [Rx] Ergocalciferol [Vitamin D2 (1250 Mcg = 71801 Iu)] 1,250 mcg PO MO 08/23/21 [History] Sennosides/Docusate Sodium [Senna Plus 8.6-50 mg Tablet] 2 tab PO DAILY 08/23/21 [History] Follow up Appointment(s)/Referral(s): Nonstaff,Physician [Primary Care Provider] - 1-2 days Activity/Diet/Wound Care/Special Instructions: Diet regular Activity as tolerated Discharge Disposition: HOME SELF-CARE
[2021-08-23] MEDS ORDERED: DICYCLOMINE 10 MG CAP PO SCH (18:00)
[2021-08-23] MEDS ORDERED: ATORVASTATIN 80 MG TAB PO SCH (21:00)
[2021-08-23] MEDS ORDERED: MAGNESIUM OXIDE 400 MG TAB PO SCH (21:00)
[2021-08-23] MEDS ORDERED: ZINC SULFATE 220 MG CAP PO SCH (21:00)
[2021-08-23] MEDS ORDERED: METOPROLOL SUCCINATE (ER) 50 MG TAB.ER.24H PO SCH (21:00)
[2021-08-23] MEDS ORDERED: lisinopriL 10 MG TAB PO SCH (21:00)
[2021-08-23] MEDS ORDERED: FUROSEMIDE 20 MG TAB PO SCH (21:00)
[2021-08-23] MEDS ORDERED: FERROUS SULFATE 325 MG TAB PO SCH (21:00)
[2021-08-23] MEDS ORDERED: TOPIRAMATE 100 MG TAB PO SCH (21:00)
[2021-08-23] MEDS ORDERED: PREGABALIN 100 MG CAP PO SCH (21:00)
[2021-08-23] MEDS ORDERED: FAMOTIDINE 20 MG TAB PO SCH (21:00)
[2021-08-24] MEDS ORDERED: SENNOSIDES-DOCUSATE SODIUM 1 EACH TAB PO SCH (09:00)
[2021-08-28] MEDS ORDERED: ERGOCALCIFEROL 1,250 MCG (50,000 IU) CAPSULE PO SCH (09:00)
== END 2021-08-23 15:55 | disposition home or self-care (01) ==
LOC: EC 02:18 → 6NMEDSUR 06:35
PROVIDERS: ADMIT Surgery Plastic and Reconstructive Surgery; ATTEND Surgery Plastic and Reconstructive Surgery
DX: R10.30 Lower abdominal pain, unspecified (principal); R11.2 Nausea with vomiting, unspecified; E66.01 Morbid (severe) obesity due to excess calories; Z68.42 Body mass index [BMI] 45.0-49.9, adult; J44.9 Chronic obstructive pulmonary disease, unspecified; E11.9 Type 2 diabetes mellitus without complications; M79.7 Fibromyalgia; K21.9 Gastro-esophageal reflux disease without esophagitis; H91.90 Unspecified hearing loss, unspecified ear; E78.5 Hyperlipidemia, unspecified; I10 Essential (primary) hypertension; I34.1 Nonrheumatic mitral (valve) prolapse; M19.90 Unspecified osteoarthritis, unspecified site; Z87.01 Personal history of pneumonia (recurrent); G47.30 Sleep apnea, unspecified; K76.0 Fatty (change of) liver, not elsewhere classified; G43.909 Migraine, unspecified, not intractable, without status migrainosus; G25.81 Restless legs syndrome; E11.40 Type 2 diabetes mellitus with diabetic neuropathy, unspecified; G89.29 Other chronic pain; M54.9 Dorsalgia, unspecified; D68.51 Activated protein C resistance; F31.9 Bipolar disorder, unspecified; F43.10 Post-traumatic stress disorder, unspecified; W01.0XXA Fall on same level from slipping, tripping and stumbling without subsequent striking against object, initial encounter; Z87.891 Personal history of nicotine dependence; Z79.899 Other long term (current) drug therapy; Z91.041 Radiographic dye allergy status; Z88.5 Allergy status to narcotic agent; Z88.0 Allergy status to penicillin; Z88.2 Allergy status to sulfonamides; Z91.048 Other nonmedicinal substance allergy status; Z16.24 Resistance to multiple antibiotics; Z98.84 Bariatric surgery status; Z98.890 Other specified postprocedural states; Z90.49 Acquired absence of other specified parts of digestive tract; Z82.49 Family history of ischemic heart disease and other diseases of the circulatory system; Z83.3 Family history of diabetes mellitus; Z83.49 Family history of other endocrine, nutritional and metabolic diseases; Z83.6 Family history of other diseases of the respiratory system
CPT/HCPCS: 96376; 96375 ×2; 96361; 96374; 99285; 36415; 80053; 82150; 83605; 83690; 85025; 81003; 74177; G0378; J2270; J1200; J2765; J2930; J2405; J1170; J0131; C9113; Q9967

== ENCOUNTER → 2023-12-18 | Outpatient (CLI) | payer MEDICARE ==
[2023-12-18 16:24] VITALS: BP 167/84; PULSE 64; RESP 16; TEMP 98.6; BMI 41.5
--- NOTE | 2023-12-18 16:51 | P.HPBAR ---
Bariatric H&P - History & Physicial H&P Date: 12/18/23 History & Physicial: Visit/CC: f/u Patient initial contact: Initial weight: 140.432 kg Initial weight in pounds: 309.60 Height: 5 ft Initial BMI: 60.4 Last weight: Current weight: 96.615 kg Current weight in pounds: 213.00 Current BMI: 41.5 [place] body weight (based on NIH guidelines): 45.359 kg Excess body weight loss: 46.0% The patient is a 53 year-old F who presents for Bariatric Assessment. She did well for 2 years then 2 months ago not feeling well. She reports left sided pain with nausea and vomiting. She feels bloated. She is not eating. She reports feeling run down. She was down to 179 pounds. She was down to 180 pounds feeling and doing well. She wanted to get down to 150 pounds. She is pooping sporadically. She reports gas. She has another boyfriend. She has lost weight in 5 years. Recommend colonoscopy. EGD got epigastric pain and ulcers. Needs labs. She feels low. LUQ and LLQ pain. Easy bruising. Past Medical History Past Medical History: Asthma, Blood Disorder, Chest Pain / Angina, COPD, Diabetes Mellitus, Fibromyalgia, GERD/Reflux, Hearing Disorder / Deafness, Hyperlipidemia, Hypertension, Liver Disease, Mitral Valve Prolapse (MVP), Musculoskeletal Disorder, Osteoarthritis (OA), Pneumonia, Respiratory Disorder, Sleep Apnea/CPAP/BIPAP Additional Past Medical History / Comment(s): MIGRAINES, DEGENERATIVE DISC DISEASE, FATTY LIVER, LEIDEN FACTOR 5, OCCASIONAL SWELLING IN LOWER EXT.NEUROPATHY, RLS, diabetes is in remission since surgery, chronic back pain, PATIENT HAS BEEN OFF MEDS FOR DIABETES SINCE BARIATRIC SURGERY History of Any Multi-Drug Resistant Organisms: ESBL Year Discovered:: 09/15/18 MDRO Source:: ESBL URINE Past Surgical History: Adenoidectomy, Appendectomy, Bariatric Surgery, Bowel Resection, Breast Surgery, Section, Cholecystectomy, Ear Surgery, Heart Catheterization, Hernia Repair, Orthopedic Surgery, Tonsillectomy Additional Past Surgical History / Comment(s): ARTHROSCOPY RT KNEE X3, RT BREAST BX-NEG, (13) MYRINGOTOMYS. laparoscopic danielle-en-y with lysis of adhesions 2013; Surgical wound debridement x3 ; SX TO REMOVED SCAR TISSUE FROM PREVIOUS ABD SX;EGD ; LAP EXAM- APPY SMALL BOWEL OBSTRUCTION LYSIS OF ADHESIONS, 3 hernia repairs, 3 bowel resection, 07/2016 colon resection, adhesions removed 03/2018, part of colon and bowel removed 08/09 Past Anesthesia/Blood Transfusion Reactions: No Reported Reaction Additional Past Anesthesia/Blood Transfusion Reaction / Comm: SEVERE HEADACHE AFTER LAST SCOPE, clausterphobia Past Psychological History: Anxiety, Bipolar, Depression, PTSD Additional Psychological History / Comment(s): SOCIAL PHOBIA. pt lives with special needs son. has cpap machine-NO LONGER USING, and cane that she uses as needed Smoking Status: Former smoker Past Alcohol Use History: Occasional Additional Past Alcohol Use History / Comment(s): OCC CIG USE IN PAST age 20 to age 21- ONE CIG PER MONTH OR LESS Past Drug Use History: None Reported Additional Drug Use History / Comment(s): OCCASIONAL MARIJUANA-INSTRUCTED TO REF RAIN FROM USE FOR AT LEAST 24 HOURS PRIOR TO PROCEDURE - Past Family History Mother Family Medical History: Deep Vein Thrombosis (DVT), Hypertension, Pulmonary Embolus, Thyroid Disorder Additional Family Medical History / Comment(s): FACTOR 5 LEIDEN, MVP Father Family Medical History: Diabetes Mellitus, Hypertension, Myocardial Infarction ([place]) Additional Family Medical History / Comment(s): AGE 59 [place] Surgical - Exam Vital Signs Temp Pulse Resp BP 98.6 F 64 16 167/84 12/18/23 16:04 12/18/23 16:04 12/18/23 16:04 12/18/23 16:04 Bariatric Checklist Checklist: Plan: Checklist: EGD: 1. Hiatal hernia: 2. H. Pylori: HgbA1c: Vitamin D: Smoking: Current some day smoker Primary care physician referral: Dr. Zohreh FINCH Psychiatry clearance: Cardiology clearance: Sleep study: Diet journal: VTE risk score: VTE risk level: Rehab needs at discharge:
== END ==
LOC: BARWHC3 15:09
PROVIDERS: ATTEND Surgery Plastic and Reconstructive Surgery
DX: E66.01 Morbid (severe) obesity due to excess calories (principal); R10.12 Left upper quadrant pain; R10.32 Left lower quadrant pain; R11.2 Nausea with vomiting, unspecified; R10.13 Epigastric pain; L98.499 Non-pressure chronic ulcer of skin of other sites with unspecified severity; F17.210 Nicotine dependence, cigarettes, uncomplicated; Z68.41 Body mass index [BMI] 40.0-44.9, adult; Z91.048 Other nonmedicinal substance allergy status; Z88.5 Allergy status to narcotic agent; Z88.8 Allergy status to other drugs, medicaments and biological substances; Z88.2 Allergy status to sulfonamides; Z88.1 Allergy status to other antibiotic agents; Z88.0 Allergy status to penicillin
CPT/HCPCS: 99211

== ENCOUNTER 2023-12-23 11:37 | Inpatient (IN) | payer MEDICARE ==
[2023-12-23 12:52] LABS: Basophils # (A) 0.1 k/uL (0-0.2); Basophils % (A) 1 %; Eosinophils # (A) 0.2 k/uL (0-0.7); Eosinophils % (A) 3 %; HCT 35.5 % (34.0-46.0); HGB 11.8 gm/dL (11.4-16.0); Lymphocytes # (A) 1.9 k/uL (1.0-4.8); Lymphocytes % (A) 29 %; MCH 29.8 pg (25.0-35.0); MCHC 33.4 g/dL (31.0-37.0); MCV 89.4 fL (80.0-100.0); Mean Platelet Volume 7.3; Monocytes # (A) 0.3 k/uL (0-1.0); Monocytes % (A) 5 %; Neutrophils % (A) 61 %; Platelet Count 234 k/uL (150-450); RBC 3.97 m/uL (3.80-5.40); RDW 13.5 % (11.5-15.5); WBC 6.5 k/uL (3.8-10.6)
[2023-12-23 12:58] LABS: Appearance,Urine Clear (Clear); Bilirubin,Urine Negative (Negative); Blood,Urine Negative (Negative); Color,Urine Colorless; Glucose,Urine (UA) Negative (Negative); Ketones,Urine Negative (Negative); Leukocyte Esterase,Urine Negative (Negative); Nitrite,Urine Negative (Negative); Protein,Urine Negative (Negative); Specific Gravity,Urine 1.008 (1.001-1.035); Urobilinogen,Urine <2.0 mg/dL (<2.0)
[2023-12-23 13:00] LABS: ALT 19 U/L (4-34); AST 26 U/L (14-36); African American GFR (CKD) >90 (>60 ml/min/1.73 sqM); Alkaline Phosphatase 116 U/L (38-126); Amylase 46 U/L (30-110); Anion Gap 4 mmol/L; Blood Urea Nitrogen 16 mg/dL (7-17); Calcium 8.9 mg/dL (8.4-10.2); Carbon Dioxide 25 mmol/L (22-30); Chloride 109 mmol/L (98-107); Glucose 102 mg/dL (74-99); Lipase 65 U/L (23-300); Non-African American GFR(CKD) >90 (>60 ml/min/1.73 sqM); Potassium 4.1 mmol/L (3.5-5.1); Sodium 138 mmol/L (137-145); Total Bilirubin 0.5 mg/dL (0.2-1.3); Total Protein 6.5 g/dL (6.3-8.2)
--- NOTE | 2023-12-23 13:37 | ED ---
General Adult HPI - General Chief complaint: Abdominal Pain Stated complaint: abd pain Time Seen by Provider: 12/23/23 13:00 Source: patient, RN notes reviewed, old records reviewed Mode of arrival: ambulatory Limitations: no limitations - History of Present Illness Initial comments: This is a 53-year-old female with a past medical history significant for colectomy and gastric bypass that was 10 days ago. Patient is scheduled to have a CAT scan tomorrow for possible bowel obstruction because the patient is been significantly nauseated recently and is starting today she started having much worse pain in left upper and left lower quadrant. Patient also states that she has constantly feels like she has to have a bowel movement but does not go much but as soon as she gets up she feels like she has to go again. Patient states Dr. Dumont wanted to come in and get a CAT scan that was normally scheduled for tomorrow. Patient denies chest pain or difficulty breathing patient [place] any fever chills. - Related Data Home Medications Medication Instructions Recorded Confirmed Cyclobenzaprine [Flexeril] 10 mg PO HS 08/05/16 12/23/23 Metoprolol Succinate [Toprol XL] 50 mg PO HS 01/22/18 12/23/23 Nitroglycerin Sl Tabs [Nitrostat] 0.4 mg PO Q5M PRN 01/22/18 12/23/23 rOPINIRole HCL [Requip] 2 mg PO HS 03/21/18 12/23/23 Amitriptyline HCl [Elavil] 75 mg PO HS 06/16/21 12/23/23 Rizatriptan Benzoate [Rizatriptan] 10 mg PO BID PRN 06/16/21 12/23/23 Topiramate [Topamax] 100 mg PO HS 06/16/21 12/23/23 Atorvastatin [Lipitor] 40 mg PO HS 12/23/23 12/23/23 Clopidogrel [Plavix] 75 mg PO DAILY 12/23/23 12/23/23 Cyclobenzaprine [Flexeril] 10 mg PO DAILY PRN 12/23/23 12/23/23 Omeprazole 40 mg PO DAILY PRN 12/23/23 12/23/23 Pregabalin [Lyrica] 150 mg PO BID 12/23/23 12/23/23 rOPINIRole HCL [Requip] 1 - 2 mg PO DAILY PRN 12/23/23 12/23/23 Allergies Allergy/AdvReac Type Severity Reaction Status Date / Time Sulfa (Sulfonamide Allergy Severe Anaphylaxis Verified 12/23/23 17:53 Antibiotics) adhesive tape Allergy BLISTERS Verified 12/23/23 17:53 amoxicillin [From Augmentin] Allergy Rash/Hives Verified 12/23/23 17:53 clavulanic acid Allergy Rash/Hives Verified 12/23/23 17:53 [From Augmentin] codeine Allergy ABDOMINAL Verified 12/23/23 17:53 PAIN, MIGRAINE HEADACHE Iodinated Contrast Media Allergy Itching Verified 12/23/23 17:53 [Iodinated Contrast- Oral and IV Dye] Penicillins Allergy Rash/Hives/Itching/Gi Verified 12/23/23 17:53 Upset adhesive AdvReac Itching Verified 12/23/23 17:53 artificial sweetners Allergy Nausea, Uncoded 12/23/23 11:59 MIGRAINE HEADACHE Review of Systems ROS Statement: Those systems with pertinent positive or pertinent negative responses have been documented in the HPI. ROS Other: All systems not noted in ROS Statement are negative. Past Medical History Past Medical History: Asthma, Blood Disorder, Chest Pain / Angina, COPD, Diabetes Mellitus, Fibromyalgia, GERD/Reflux, Hearing Disorder / Deafness, Hyperlipidemia, Hypertension, Liver Disease, Mitral Valve Prolapse (MVP), Musculoskeletal Disorder, Osteoarthritis (OA), Pneumonia, Respiratory Disorder, Sleep Apnea/CPAP/BIPAP Additional Past Medical History / Comment(s): MIGRAINES, DEGENERATIVE DISC DISEASE, FATTY LIVER, LEIDEN FACTOR 5, OCCASIONAL SWELLING IN LOWER EXT.NEUROPATHY, RLS, diabetes is in remission since surgery, chronic back pain, PATIENT HAS BEEN OFF MEDS FOR DIABETES SINCE BARIATRIC SURGERY History of Any Multi-Drug Resistant Organisms: ESBL Date of last positivie culture/infection: 09/15/18 MDRO Source:: ESBL URINE Past Surgical History: Adenoidectomy, Appendectomy, Bariatric Surgery, Bowel Resection, Breast Surgery, Section, Cholecystectomy, Ear Surgery, Heart Catheterization, Hernia Repair, Orthopedic Surgery, Tonsillectomy Additional Past Surgical History / Comment(s): ARTHROSCOPY RT KNEE X3, RT BREAST BX-NEG, (13) MYRINGOTOMYS. laparoscopic danielle-en-y with lysis of adhesions 2013; Surgical wound debridement x3 ; SX TO REMOVED SCAR TISSUE FROM PREVIOUS ABD SX;EGD ; LAP EXAM- APPY SMALL BOWEL OBSTRUCTION LYSIS OF ADHESIONS, 3 hernia repairs, 3 bowel resection, 07/2016 colon resection, adhesions removed 03/2018, part of colon and bowel removed 08/09 Past Anesthesia/Blood Transfusion Reactions: No Reported Reaction Additional Past Anesthesia/Blood Transfusion Reaction / Comment(s): SEVERE HEADACHE AFTER LAST SCOPE, clausterphobia Past Psychological History: Anxiety, Bipolar, Depression, PTSD Smoking Status: Former smoker Past Alcohol Use History: Occasional Past Drug Use History: None Reported - Past Family History Mother Family Medical History: Deep Vein Thrombosis (DVT), Hypertension, Pulmonary Embolus, Thyroid Disorder Additional Family Medical History / Comment(s): FACTOR 5 LEIDEN, MVP Father Family Medical History: Diabetes Mellitus, Hypertension, Myocardial Infarction ([place]) Additional Family Medical History / Comment(s): AGE 59 [place] General Exam - General Exam Comments Initial Comments: GENERAL: Patient is well-developed and well-nourished. Patient is nontoxic and well- hydrated and is in mild distress. ENT: Neck is soft and supple. No significant lymphadenopathy is noted. Oropharynx is clear. Moist mucous membranes. Neck has full range of motion without eliciting any pain. EYES: The sclera were anicteric and conjunctiva were pink and moist. Extraocular movements were intact and pupils were equal round and reactive to light. Eyelids were unremarkable. PULMONARY: Unlabored respirations. Good breath sounds bilaterally. No audible rales rhonchi or wheezing was noted. CARDIOVASCULAR: There is a regular rate and rhythm without any murmurs gallops or rubs. ABDOMEN: Soft and nontender with normal bowel sounds. When patient was distracted patient's abdomen did not seem to be tender on palpation SKIN: Skin is clear with no lesions or rashes and otherwise unremarkable. NEUROLOGIC: Patient is alert and oriented x3. Cranial nerves II through XII are grossly intact. Motor and sensory are also intact. Normal speech, volume and content. Symmetrical smile. MUSCULOSKELETAL: Normal extremities with adequate strength and full range of motion. LYMPHATICS: No significant lymphadenopathy is noted PSYCHIATRIC: Normal psychiatric evaluation. Limitations: no limitations Course Vital Signs 12/23/23 12/23/23 12/23/23 11:55 18:00 18:28 Temperature 98.3 F Pulse Rate 66 71 60 Pulse Rate [ Pulse Oximetery ] Respiratory 18 18 18 Rate Blood Pressure 144/79 130/65 138/76 Blood Pressure [Right Arm] O2 Sat by Pulse 99 98 94 L Oximetry 12/23/23 19:44 Temperature Pulse Rate Pulse Rate [ 56 L Pulse Oximetery ] Respiratory 18 Rate Blood Pressure Blood Pressure 127/69 [Right Arm] O2 Sat by Pulse 96 Oximetry Medical Decision Making - Medical Decision Making EKG is interpreted by myself. EKG shows a sinus rhythm at 62 bpm [place] interval is under 93 QRS is 89 QT interval is 413 QTc is 418. Patient's EKG shows no ST segment elevation or depression. Was pt. sent in by a medical professional or institution (, [facility], STREET LIGHT REPAIRER HELPER, urgent care, hospital, or long-term...) When possible be specific @ -No Did you speak to anyone other than the patient for history (EMS, parent, family, police, friend...)? What history was obtained from this source @ -No Did you review nursing and triage notes (agree or disagree)? Why? @ -I reviewed and agree with nursing and triage notes Were old charts reviewed (outside hosp., previous admission, EMS record, old EKG, old radiological studies, urgent care reports/EKG's, long-term records)? Report findings @ -No old charts were reviewed Differential Diagnosis? @ -Differential Abdominal Pain Women: Appendicitis, Cholecystitis, diverticulosis, ischemic bowel, pancreatitis, hepatitis, UTI, gastroenteritis, AAA, incarcerated hernia, bowel obstruction, constipation, inflammatory bowel, hepatitis, peptic ulcer disease, splenic inf arction, perforated viscus, vulvitis, ovarian torsion, PID, kidney stone, placenta abruption, this is not meant to be an all-inclusive list EKG interpreted by me (3pts min.). @ -As above X-rays interpreted by me (1pt min.). @ -None done CT interpreted by me (1pt min.). @ -CT scan shows no acute abnormality. U/S interpreted by me (1pt. min.). @ -None done What testing was considered but not performed or refused? (CT, X-rays, U/S, labs)? Why? @ -None What meds were considered but not given or refused? Why? @ -None Did you discuss the management of the patient with other professionals (professionals i.e. JOSETTE Flores, STREET LIGHT REPAIRER HELPER, lab, RT, psych nurse, social work assistant, auto air conditioning installer, teacher, wildlife conservation officer, case resource manager)? Give summary @ -I spoke with Dr. Dumont and she wanted the patient observed overnight. Was smoking cessation discussed for >3mins.? @ -No Was critical care preformed (if so, how long)? @ -No Were there social determinants of health that impacted care today? How? (Homelessness, low income, unemployed, alcoholism, drug addiction, transportation, low edu. Level, literacy, decrease access to med. care, shelter, rehab)? @ -No Was there de-escalation of care discussed even if they declined (Discuss DNR or withdrawal of care, Hospice)? DNR status @ -No What co-morbidities impacted this encounter? (DM, HTN, Smoking, COPD, CAD, Cancer, CVA, ARF, Chemo, Hep., AIDS, mental health diagnosis, sleep apnea, morbid obesity)? @ -None Was patient admitted / discharged? Hospital course, mention meds given and route, prescriptions, significant lab abnormalities, going to OR and other pertinent info. @ -Patient received pain medicine and nausea medicine in the emergency department and got a CAT scan which showed no acute normality. I spoke with Dr. Dumont she wanted the patient admitted for observation Undiagnosed new problem with uncertain prognosis? @ -No Drug Therapy requiring intensive monitoring for toxicity (Heparin, Nitro, Insulin, Cardizem)? @ -No Were any procedures done? @ -No Diagnosis/symptom? @ -Abdominal pain Acute, or Chronic, or Acute on Chronic? @ -Chronic Uncomplicated (without systemic symptoms) or Complicated (systemic symptoms)? @ -Complicated Side effects of treatment? @ -No Exacerbation, Progression, or Severe Exacerbation? @ -No Poses a threat to life or bodily function? How? (Chest pain, [place], [place], pneumonia, PE, COPD, DKA, ARF, appy, cholecystitis, CVA, Diverticulitis, Homicidal, Suicidal, threat to staff... and all critical care pts) @ -No - Lab Data Result diagrams: 12/23/23 12:31 12/23/23 12:31 Lab Results 12/23/23 12/23/23 12/23/23 Range/Units 12:12 12:31 12:31 WBC 6.5 (3.8-10.6) k/uL RBC 3.97 (3.80-5.40) m/uL Hgb 11.8 (11.4-16.0) gm/dL Hct 35.5 (34.0-46.0) % MCV 89.4 (80.0-100.0) fL MCH 29.8 (25.0-35.0) pg MCHC 33.4 (31.0-37.0) g/dL RDW 13.5 (11.5-15.5) % Plt Count 234 (150-450) k/uL MPV 7.3 Neutrophils % 61 % Lymphocytes % 29 % Monocytes % 5 % Eosinophils % 3 % Basophils % 1 % Neutrophils # 4.0 (1.3-7.7) k/uL Lymphocytes # 1.9 (1.0-4.8) k/uL Monocytes # 0.3 (0-1.0) k/uL Eosinophils # 0.2 (0-0.7) k/uL Basophils # 0.1 (0-0.2) k/uL Sodium 138 (137-145) mmol/L Potassium 4.1 (3.5-5.1) mmol/L Chloride 109 H (98-107) mmol/L Carbon Dioxide 25 (22-30) mmol/L Anion Gap 4 mmol/L BUN 16 (7-17) mg/dL Creatinine 0.72 (0.52-1.04) mg/dL Est GFR (CKD-EPI)AfAm >90 (>60 ml/min/1.73 sqM) Est GFR (CKD-EPI)NonAf >90 (>60 ml/min/1.73 sqM) Glucose 102 H (74-99) mg/dL Plasma Lactic Acid [place]eb[place] (0.7-2.0) mmol/L Calcium 8.9 (8.4-10.2) mg/dL Total Bilirubin 0.5 (0.2-1.3) mg/dL AST 26 (14-36) U/L ALT 19 (4-34) U/L Alkaline Phosphatase 116 (38-126) U/L Total Protein 6.5 (6.3-8.2) g/dL Albumin 4.0 (3.5-5.0) g/dL Amylase 46 (30-110) U/L Lipase 65 (23-300) U/L Urine Color Colorless Urine Appearance Clear (Clear) Urine pH 7.0 (5.0-8.0) Ur Specific [place] 1.008 (1.001-1.035) Urine Protein Negative (Negative) Urine Glucose (UA) Negative (Negative) Urine Ketones Negative (Negative) Urine Blood Negative (Negative) Urine Nitrite Negative (Negative) Urine Bilirubin Negative (Negative) Urine Urobilinogen <2.0 (<2.0) mg/dL Ur Leukocyte Esterase Negative (Negative) 12/23/23 Range/Units 13:51 WBC (3.8-10.6) k/uL RBC (3.80-5.40) m/uL Hgb (11.4-16.0) gm/dL Hct (34.0-46.0) % MCV (80.0-100.0) fL MCH (25.0-35.0) pg MCHC (31.0-37.0) g/dL RDW (11.5-15.5) % Plt Count (150-450) k/uL MPV Neutrophils % % Lymphocytes % % Monocytes % % Eosinophils % % Basophils % % Neutrophils # (1.3-7.7) k/uL Lymphocytes # (1.0-4.8) k/uL Monocytes # (0-1.0) k/uL Eosinophils # (0-0.7) k/uL Basophils # (0-0.2) k/uL Sodium (137-145) mmol/L Potassium (3.5-5.1) mmol/L Chloride (98-107) mmol/L Carbon Dioxide (22-30) mmol/L Anion Gap mmol/L BUN (7-17) mg/dL Creatinine (0.52-1.04) mg/dL Est GFR (CKD-EPI)AfAm (>60 ml/min/1.73 sqM) Est GFR (CKD-EPI)NonAf (>60 ml/min/1.73 sqM) Glucose (74-99) mg/dL Plasma Lactic Acid [place] 0.9 (0.7-2.0) mmol/L Calcium (8.4-10.2) mg/dL Total Bilirubin (0.2-1.3) mg/dL AST (14-36) U/L ALT (4-34) U/L Alkaline Phosphatase (38-126) U/L Total Protein (6.3-8.2) g/dL Albumin (3.5-5.0) g/dL Amylase (30-110) U/L Lipase (23-300) U/L Urine Color Urine Appearance (Clear) Urine pH (5.0-8.0) Ur Specific [place] (1.001-1.035) Urine Protein (Negative) Urine Glucose (UA) (Negative) Urine Ketones (Negative) Urine Blood (Negative) Urine Nitrite (Negative) Urine Bilirubin (Negative) Urine Urobilinogen (<2.0) mg/dL Ur Leukocyte Esterase (Negative) Disposition Clinical Impression: Abdominal pain Disposition: ADMITTED IP TO THIS [facility] Time of Disposition: 17:16
[2023-12-23] MEDS: ONDANSETRON 4 MG/2 ML VIAL IVP STA (13:42)
[2023-12-23] MEDS: diphenhydrAMINE 50 MG/ML 1 ML VIAL IVP STA (13:44)
[2023-12-23] MEDS: FAMOTIDINE 20 MG/2 ML VIAL IV STA (13:45)
[2023-12-23] MEDS: methylPREDNISolone SOD SUCCI 125 MG/2 ML VIAL IV STA (13:47)
[2023-12-23] MEDS: SODIUM CHLORIDE 0.9% 1,000 ML IV STA (13:48)
--- NOTE | 2023-12-23 14:33 | CT ---
EXAMINATION TYPE: CT abdomen pelvis w con DATE OF EXAM: 12/23/2023 COMPARISON: 08/23/2021 CLINICAL INDICATION: Female, 53 years old with history of abdominal pain; PHH, LEFT SIDED ABDOMINAL P AIN TECHNIQUE: Performed without Oral Contrast and with IV Contrast, patient injected with 100ml mL of Isovue 300. CT DLP: 1696.[address] CTDI: mGy Automated exposure control for dose reduction was used. FINDINGS: The lung bases are clear. There are postsurgical changes of gastric bypass surgery. There is surgical absence of the gallbladde r. There is no focal mass or organomegaly involving the liver, pancreas, spleen or adrenal glands. There is no solid renal mass or hydronephrosis and there is homogeneous contrast enhancement of the r enal parenchyma. The caliber the abdominal aorta is normal is no retroperitoneal adenopathy or hemorr pratima. The bowel loops are normal in caliber and there is no evidence of dilatation or obstruction. No infla mmatory changes are identified in the bowel wall or mesentery. There are postsurgical changes involvi ng multiple bowel loops. There is no free intraperitoneal air or fluid. No pelvic mass, free fluid, abscess or adenopathy. The osseous structures and soft tissues are intact. IMPRESSION: Multiple postsurgical changes are described above. No acute changes within the abdomen or pelvis. [facility], , 12/23/2023 2:30 PM
[2023-12-23] MEDS: HYDROmorphone 0.5 MG/0.5 ML SYRINGE IVP STA (14:43)
[2023-12-23] MEDS: droPERidol 5 MG/2 ML VIAL IVP ONE (17:31)
[2023-12-23] MEDS: SODIUM CHLORIDE 0.9% 1,000 ML IV ONE (17:32)
[2023-12-23] MEDS: LORazepam 2 MG/ML INJ IV ONE (17:55)
[2023-12-24] MEDS ORDERED: SUMAtriptan succinate 50 MG TAB PO PRN (10:15)
[2023-12-24] MEDS ORDERED: PANTOPRAZOLE 40 MG TABLET PO PRN (10:15)
[2023-12-24] MEDS: PREGABALIN 75 MG CAP PO SCH (10:24)
[2023-12-24] MEDS: ONDANSETRON 4 MG/2 ML VIAL IVP PRN (10:42)
[2023-12-24] MEDS: HYDROmorphone 0.5 MG/0.5 ML SYRINGE IVP PRN (10:43)
--- NOTE | 2023-12-24 13:10 | P.GSHP ---
History of Present Illness H&P Date: 12/24/23 CHIEF COMPLAINT: Abdominal pain HISTORY OF PRESENT ILLNESS: This is a 53-year-old female who presented the hospital with complaints of epigastric and left-sided abdominal pain x 1-1/2 months. Patient reports having nausea and vomiting over the last day and a half. She reports having watery stools yesterday. She has been having flatus. She does report it feels that she has incomplete emptying after bowel movement. CAT scan abdomen pelvis showed no acute findings. Patient does have a past h istory of Barb-en-Y gastric bypass 10 years ago, sigmoid colectomy with low anterior resection, history of prior bowel resections, cholecystectomy, C- section and hernia repair, lysis of adhesions. Patient does take Plavix at home. Her last dose of Plavix was on December 21. Patient's last colonoscopy was in July 2021 for decompression of sigmoid volvulus. And last EGD was 06/21/2021 with no acute findings. Patient does have a prior history of gastric ulcers. PAST MEDICAL HISTORY: See list. PAST SURGICAL HISTORY: See list. MEDICATIONS: See list. ALLERGIES: See list. SOCIAL HISTORY: No illicit drug use. REVIEW OF SYSTEMS: CONSTITUTIONAL: Denies fever or chills. HEENT: Denies blurred vision, vision changes, or eye pain. Denies hemoptysis ENDOCRINE: Denies heat or cold intolerance. CARDIOVASCULAR: Denies chest pain or pressure. RESPIRATORY: No shortness of breath. GASTROINTESTINAL: Denies abdominal pain. Denies nausea or vomiting. NEURO: Denies history of seizures. PSYCH: No depression or suicidal ideation HEMATOLOGIC: Denies bleeding disorders. LYMPHATIC: The patient denies any lumps and bumps around the neck. GENITOURINARY: Denies any blood in urine or increased urinary frequency. MUSCULOSKELETAL: Denies myalgias. Denies joint swelling. Denies decreased range of motion beyond patients baseline. SKIN: Denies pruitis. Denies rash. PHYSICAL EXAM: VITAL SIGNS: Reviewed GENERAL: Well-developed in no acute distress. HEENT: No sclera icterus. Extraocular movements grossly intact. Moist buccal mucosa. Head is atraumatic, normocephalic. Hears conversational speech. No nasal drainage. NECK: Supple without lymphadenopathy. CHEST: Non-labored respirations and equal bilateral excursions. CARDIOVASCULAR: Palpable 2+ radial pulses. ABDOMEN: Soft. Nondistended. Mild tenderness epigastric and left side of abdomen with palpation. No guarding MUSCULOSKELETAL: No clubbing or cyanosis. NEUROLOGIC: No focal or lateralizing signs. Cranial nerves II through XII grossly intact. PSYCH: Appropriate affect. Alert and oriented to person, place and time. SKIN: Well perfused. Good skin turgor. LABORATORY DATA: WBC 6.5 Hgb 11.8 platelets 234 Sodium 138 potassium is 4.1 creatinine 0.72 Lactic acid 0.9 LFTs normal Urinalysis negative for infection IMAGING: CT scan abdomen pelvis reports multiple postsurgical changes as described above. No acute changes within the abdomen or pelvis ASSESSMENT: 1. Abdominal pain 2. History of multiple abdominal surgeries PLAN: -Patient scheduled for EGD and colonoscopy tomorrow with Dr. Dumont -Start GoLytely bowel prep with lactulose today -Clear liquid diet today -N.p.o. 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 Signing provider agrees with the documented findings, assessment, and plan of care. Past Medical History Past Medical History: Asthma, Blood Disorder, Chest Pain / Angina, COPD, Diabetes Mellitus, Fibromyalgia, GERD/Reflux, Hearing Disorder / Deafness, Hyperlipidemia, Hypertension, Liver Disease, Mitral Valve Prolapse (MVP), Musculoskeletal Disorder, Osteoarthritis (OA), Pneumonia, Respiratory Disorder, Sleep Apnea/CPAP/BIPAP Additional Past Medical History / Comment(s): MIGRAINES, DEGENERATIVE DISC DISEASE, FATTY LIVER, LEIDEN FACTOR 5, OCCASIONAL SWELLING IN LOWER EXT.NEUROPATHY, RLS, diabetes is in remission since surgery, chronic back pain, PATIENT HAS BEEN OFF MEDS FOR DIABETES SINCE BARIATRIC SURGERY History of Any Multi-Drug Resistant Organisms: None Reported, ESBL Date of last positivie culture/infection: 09/15/18 MDRO Source:: ESBL URINE Past Surgical History: Adenoidectomy, Appendectomy, Bariatric Surgery, Bowel Res ection, Breast Surgery, Section, Cholecystectomy, Ear Surgery, Heart Catheterization, Hernia Repair, Orthopedic Surgery, Tonsillectomy Additional Past Surgical History / Comment(s): ARTHROSCOPY RT KNEE X3, RT BREAST BX-NEG, (13) MYRINGOTOMYS. laparoscopic barb-en-y with lysis of adhesions 2013; Surgical wound debridement x3 ; SX TO REMOVED SCAR TISSUE FROM PREVIOUS ABD SX;EGD ; LAP EXAM- APPY SMALL BOWEL OBSTRUCTION LYSIS OF ADHESIONS, 3 hernia repairs, 3 bowel resection, 07/2016 colon resection, adhesions removed 03/2018, part of colon and bowel removed 08/09 Past Anesthesia/Blood Transfusion Reactions: No Reported Reaction Additional Past Anesthesia/Blood Transfusion Reaction / Comment(s): SEVERE HEADACHE AFTER LAST SCOPE, clausterphobia Past Psychological History: Anxiety, Bipolar, Depression, PTSD Additional Psychological History / Comment(s): SOCIAL PHOBIA. pt lives with special needs son. has cpap machine-NO LONGER USING, and cane that she uses as needed Smoking Status: Former smoker Past Alcohol Use History: Occasional Additional Past Alcohol Use History / Comment(s): OCC CIG USE IN PAST age 20 to age 21- ONE CIG PER MONTH OR LESS Past Drug Use History: None Reported Additional Drug Use History / Comment(s): OCCASIONAL MARIJUANA-INSTRUCTED TO REFRAIN FROM USE FOR AT LEAST 24 HOURS PRIOR TO PROCEDURE - Past Family History Mother Family Medical History: Deep Vein Thrombosis (DVT), Hypertension, Pulmonary Embolus, Thyroid Disorder Additional Family Medical History / Comment(s): FACTOR 5 LEIDEN, MVP Father Family Medical History: Diabetes Mellitus, Hypertension, Myocardial Infarction (SD) Additional Family Medical History / Comment(s): AGE 59 SD Medications and Allergies Home Medications Medication Instructions Recorded Confirmed Type Cyclobenzaprine [Flexeril] 10 mg PO HS 08/05/16 12/23/23 History Metoprolol Succinate [Toprol XL] 50 mg PO HS 01/22/18 12/23/23 History Nitroglycerin Sl Tabs [Nitrostat] 0.4 mg PO Q5M PRN 01/22/18 12/23/23 History rOPINIRole HCL [Requip] 2 mg PO HS 03/21/18 12/23/23 History Amitriptyline HCl [Elavil] 75 mg PO HS 06/16/21 12/23/23 History Rizatriptan Benzoate [Rizatriptan] 10 mg PO BID PRN 06/16/21 12/23/23 History Topiramate [Topamax] 100 mg PO HS 06/16/21 12/23/23 History Atorvastatin [Lipitor] 40 mg PO HS 12/23/23 12/23/23 History Clopidogrel [Plavix] 75 mg PO DAILY 12/23/23 12/23/23 History Cyclobenzaprine [Flexeril] 10 mg PO DAILY PRN 12/23/23 12/23/23 History Omeprazole 40 mg PO DAILY PRN 12/23/23 12/23/23 History Pregabalin [Lyrica] 150 mg PO BID 12/23/23 12/23/23 History rOPINIRole HCL [Requip] 1 - 2 mg PO DAILY PRN 12/23/23 12/23/23 History Allergies Allergy/AdvReac Type Severity Reaction Status Date / Time Sulfa (Sulfonamide Allergy Severe Anaphylaxis Verified 12/23/23 17:53 Antibiotics) adhesive tape Allergy BLISTERS Verified 12/23/23 17:53 amoxicillin [From Augmentin] Allergy Rash/Hives Verified 12/23/23 17:53 clavulanic acid Allergy Rash/Hives Verified 12/23/23 17:53 [From Augmentin] codeine Allergy ABDOMINAL Verified 12/23/23 17:53 PAIN, MIGRAINE HEADACHE Iodinated Contrast Media Allergy Itching Verified 12/23/23 17:53 [Iodinated Contrast- Oral and IV Dye] Penicillins Allergy Rash/Hives/Itching/Gi Verified 12/23/23 17:53 Upset adhesive AdvReac Itching Verified 12/23/23 17:53 artificial sweetners Allergy Nausea, Uncoded 12/23/23 11:59 MIGRAINE HEADACHE Surgical - Exam Vital Signs Temp Pulse Resp BP Pulse Ox 98.3 F 66 18 144/79 99 12/23/23 11:55 12/23/23 11:55 12/23/23 11:55 12/23/23 11:55 12/23/23 11:55 Results - Labs 12/23/23 12:31 12/23/23 12:31 Abnormal Lab Results - Last 24 Hours (Table) 12/23/23 Range/Units 12:31 Chloride 109 H (98-107) mmol/L Glucose 102 H (74-99) mg/dL Diabetes panel 12/23/23 Range/Units 12:31 Sodium 138 (137-145) mmol/L Potassium 4.1 (3.5-5.1) mmol/L Chloride 109 H (98-107) mmol/L Carbon Dioxide 25 (22-30) mmol/L BUN 16 (7-17) mg/dL Creatinine 0.72 (0.52-1.04) mg/dL Glucose 102 H (74-99) mg/dL Calcium 8.9 (8.4-10.2) mg/dL AST 26 (14-36) U/L ALT 19 (4-34) U/L Alkaline Phosphatase 116 (38-126) U/L Total Protein 6.5 (6.3-8.2) g/dL Albumin 4.0 (3.5-5.0) g/dL Calcium panel 12/23/23 Range/Units 12:31 Calcium 8.9 (8.4-10.2) mg/dL Albumin 4.0 (3.5-5.0) g/dL Pituitary panel 12/23/23 Range/Units 12:31 Sodium 138 (137-145) mmol/L Potassium 4.1 (3.5-5.1) mmol/L Chloride 109 H (98-107) mmol/L Carbon Dioxide 25 (22-30) mmol/L BUN 16 (7-17) mg/dL Creatinine 0.72 (0.52-1.04) mg/dL Glucose 102 H (74-99) mg/dL Calcium 8.9 (8.4-10.2) mg/dL Adrenal panel 12/23/23 Range/Units 12:31 Sodium 138 (137-145) mmol/L Potassium 4.1 (3.5-5.1) mmol/L Chloride 109 H (98-107) mmol/L Carbon Dioxide 25 (22-30) mmol/L BUN 16 (7-17) mg/dL Creatinine 0.72 (0.52-1.04) mg/dL Glucose 102 H (74-99) mg/dL Calcium 8.9 (8.4-10.2) mg/dL Total Bilirubin 0.5 (0.2-1.3) mg/dL AST 26 (14-36) U/L ALT 19 (4-34) U/L Alkaline Phosphatase 116 (38-126) U/L Total Protein 6.5 (6.3-8.2) g/dL Albumin 4.0 (3.5-5.0) g/dL
[2023-12-24] MEDS: PEG 3350 (236 GM/BTL) + LYTES 4,000 ML BOTTLE PO ONE (13:57)
[2023-12-24] MEDS: LACTULOSE 20 GM/30 ML CUP PO ONE (13:59)
[2023-12-24] MEDS: METOPROLOL SUCCINATE (ER) 50 MG TAB.ER.24H PO SCH (21:45)
[2023-12-24] MEDS: AMITRIPTYLINE HCL 25 MG TAB PO SCH (21:45)
[2023-12-24] MEDS: TOPIRAMATE 100 MG TAB PO SCH (21:45)
[2023-12-24] MEDS: CYCLOBENZAPRINE 10 MG TAB PO SCH (21:52)
[2023-12-25 03:33] LABS: African American GFR (CKD) >90 (>60 ml/min/1.73 sqM); Anion Gap 0 mmol/L; Blood Urea Nitrogen 10 mg/dL (7-17); Calcium 8.5 mg/dL (8.4-10.2); Carbon Dioxide 27 mmol/L (22-30); Chloride 109 mmol/L (98-107); Glucose 113 mg/dL (74-99); Non-African American GFR(CKD) >90 (>60 ml/min/1.73 sqM); Potassium 3.8 mmol/L (3.5-5.1); Sodium 136 mmol/L (137-145)
[2023-12-25] MEDS ORDERED: PROPOFOL 10 MG/ML 20 ML VIAL IV ONE (10:17)
[2023-12-25] MEDS ORDERED: LIDOCAINE 1% INJ 10MG/ML (20 ML MDV) ONE (10:17)
[2023-12-25] MEDS: IV FLUID CONTINUATION 1,000 ML IV ONE (10:17)
--- NOTE | 2023-12-25 10:26 | P.PN ---
Subjective Progress Note Date: 12/25/23 CHIEF COMPLAINT: Intractable abdominal pain HISTORY OF PRESENT ILLNESS: The patient is a 53-year-old female with a complicated surgical history including Barb-en-Y gastric bypass with revision, colectomy, multiple drug allergies and chronic pain syndrome who comes in with severe epigastric radiating to left lower quadrant abdominal pain. Patient had presented to the emergency room and still had uncontrolled abdominal pain despite pain medications. Patient reports inability keep foods down. Patient also reports last time she took her Plavix was 2 weeks ago when she went to the dentist. ROS: No fevers or chills. No new chest pain. No productive sputum PHYSICAL EXAM: VITAL SIGNS: Reviewed CONSTITUTIONAL: Well developed and in no acute distress. EYES: Conjuctivae without sclera icterus. Extraocular movements grossly intact. HEAD, EARS, NOSE, THROAT: Moist buccal mucosa. Head is atraumatic, normocephalic. Hears conversational speech. No nasal drainage. RESPIRATORY: Non-labored respirations and equal bilateral excursions. CARDIOVASCULAR: Palpable 2+ radial pulses. ABDOMEN: Obese, tender left upper quadrant, left lower quadrant, periumbilical area. No diffuse peritonitis. MUSCULOSKELETAL: No gross deformity of the lower extremities noted. No clubbing. No cyanosis. SKIN: Good skin turgor. Well perfused. NEUROLOGIC: Cranial nerves II through XII grossly intact. No focal or lateralizing signs. PSYCH: Appropriate affect. Alert and oriented to person, place and time. CLINICAL LABS: Reviewed. WBC normal. Electrolytes within normal limits. STUDIES: CT of the abdomen pelvis independently reviewed demonstrates mesenteric swirl of the left upper quadrant consistent with patient's pain and risk of internal hernia. Large and small bowel caliber changes noted. Features of gastric bypass also identified. This is my independent interpretation. ASSESSMENT: 1. Intractable abdominal pain, epigastric, left upper quadrant, left lower quadrant 2. History of gastric bypass with revision 3. Morbid obesity due to excess calories, BMI 42.0 4. Coronary artery disease 5. Hypertensive heart disease 6. Antiplatelet therapy PLAN: 1. Patient reports that she has not had Plavix in 2 weeks whereby endoscopy and surgical intervention were on hold. 2. Will proceed with upper endoscopy as she reports intractable nausea and vomiting and risk of stenosis 3. Colonoscopy for left lower quadrant abdominal pain and history of colectomy 4. Additional surgical intervention pending results of scopes Objective - Vital Signs Vital signs: Vital Signs Temp 98.0 F 12/25/23 07:31 Pulse 61 12/25/23 07:31 Resp 16 12/25/23 07:31 BP 147/81 12/25/23 07:31 Pulse Ox 96 12/25/23 07:31 FiO2 Intake & Output 12/24/23 12/25/23 12/25/23 18:59 06:59 18:59 Other: # Voids 4 3 # Bowel Movements 2 - Labs CBC & Chem 7: 12/23/23 12:31 12/25/23 02:47 Labs: Abnormal Lab Results - Last 24 Hours (Table) 12/25/23 Range/Units 02:47 Sodium 136 L (137-145) mmol/L Chloride 109 H (98-107) mmol/L Glucose 113 H (74-99) mg/dL
--- NOTE | 2023-12-25 11:49 | P.PCN ---
Date of Procedure: 12/25/23 Description of Procedure: PREOPERATIVE DIAGNOSIS: Intractable abdominal pain, generalized Change in bowel habits History of colectomy POSTOPERATIVE DIAGNOSIS: Intractable abdominal pain, generalized Change in bowel habits History of colectomy OPERATION: Colonoscopy to the ascending colon SURGEON: Latricia Dumont MD. ANESTHESIA: MAC. INDICATIONS: The patient is a 53-year-old female who presents with change in bowel habits, intractable abdominal pain. She had prior colectomy. Benefits and risks were described and informed consent was obtained. DESCRIPTION OF PROCEDURE: The patient had undergone GoLytely prep. The patient had been brought into the operating room and laid in the left lateral decubitus position. After adequate intravenous sedation, the rectum was examined with 2% lidocaine jelly. No external hemorrhoids were encountered. The rectal tone was within normal limits. No lesions were palpated in the rectal vault. An Olympus colonoscope was advanced throughout highly redundant colon to the ascending colon. The prep was excellent. No scattered diverticulosis was encountered. No colonic polyps were found. No evidence of focal colitis was found. Retroflexion of the scope demonstrated grade 1 internal hemorrhoids without active bleeding or inflammation. The colon was desufflated. The patient had tolerated the procedure well. Withdrawal time was over 6 minutes. FINDINGS: Aronchick preparation quality scale 2 (1-5) Internal hemorrhoids, grade 1 No external prolapsed hemorrhoids. No arteriovenous malformations. No adenomatous polyps. No focal colitis. Highly redundant colon Scope advanced to the cecum RECOMMENDATIONS: Lower endoscopy as needed Plan - Discharge Summary Discharge Rx Participant: No New Discharge Prescriptions: No Action Cyclobenzaprine [Flexeril] 10 mg PO HS Nitroglycerin Sl Tabs [Nitrostat] 0.4 mg PO Q5M PRN PRN Reason: Chest Pain Metoprolol Succinate [Toprol XL] 50 mg PO HS rOPINIRole HCL [Requip] 2 mg PO HS Topiramate [Topamax] 100 mg PO HS Cyclobenzaprine [Flexeril] 10 mg PO DAILY PRN PRN Reason: Muscle Spasm rOPINIRole HCL [Requip] 1 - 2 mg PO DAILY PRN PRN Reason: RESTLESS LEGS Pregabalin [Lyrica] 150 mg PO BID Atorvastatin [Lipitor] 40 mg PO HS Omeprazole 40 mg PO DAILY PRN PRN Reason: ACID REFLUX Rizatriptan Benzoate [Rizatriptan] 10 mg PO BID PRN PRN Reason: Migraine Headache Amitriptyline HCl [Elavil] 75 mg PO HS Clopidogrel [Plavix] 75 mg PO DAILY Discharge Medication List Cyclobenzaprine [Flexeril] 10 mg PO HS 08/05/16 [History] Metoprolol Succinate [Toprol XL] 50 mg PO HS 01/22/18 [History] Nitroglycerin Sl Tabs [Nitrostat] 0.4 mg PO Q5M PRN 01/22/18 [History] rOPINIRole HCL [Requip] 2 mg PO HS 03/21/18 [History] Amitriptyline HCl [Elavil] 75 mg PO HS 06/16/21 [History] Rizatriptan Benzoate [Rizatriptan] 10 mg PO BID PRN 06/16/21 [History] Topiramate [Topamax] 100 mg PO HS 06/16/21 [History] Atorvastatin [Lipitor] 40 mg PO HS 12/23/23 [History] Clopidogrel [Plavix] 75 mg PO DAILY 12/23/23 [History] Cyclobenzaprine [Flexeril] 10 mg PO DAILY PRN 12/23/23 [History] Omeprazole 40 mg PO DAILY PRN 12/23/23 [History] Pregabalin [Lyrica] 150 mg PO BID 12/23/23 [History] rOPINIRole HCL [Requip] 1 - 2 mg PO DAILY PRN 12/23/23 [History] Follow up Appointment(s)/Referral(s): Thelma Schwartz MD [Primary Care Provider] - 1-2 days
--- NOTE | 2023-12-25 11:52 | P.PCN ---
Date of Procedure: 12/25/23 Description of Procedure: PREOPERATIVE DIAGNOSES: 1. Intractable abdominal pain 2. Intractable nausea and vomiting. 3. History of Barb-en-Y gastric bypass 4. History of gastric ulcers 5. Morbid obesity due to excess calories, BMI 42.0 6. History of dysphagia POSTOPERATIVE DIAGNOSES: 1. Intractable abdominal pain 2. Intractable nausea and vomiting. 3. History of Barb-en-Y gastric bypass 4. History of gastric ulcers 5. Morbid obesity due to excess calories, BMI 42.0 6. History of dysphagia PROCEDURE PERFORMED: Esophagogastrojejunoscopy with biopsies on the gastric pouch, esophagus, jejunum. SURGEON: Latricia Dumont MD ANESTHESIA: MAC. INDICATIONS: The patient is a 53-year-old female with prior history of Barb-en-Y gastric bypass. She presents with intractable abdominal pain including intractable nausea and vomiting. With her history of Barb-en-Y gastric bypass, upper endoscopy was offered for further evaluation and management. Benefits and risks described. Informed consent was obtained. DESCRIPTION: Patient was brought to the endoscopy suite and laid in the left lateral decubitus position. After adequate IV sedation, a bite block was placed. An Olympus gastroscope was passed along the posterior oropharynx down to the distal esophagus where the squamocolumnar junction was found at approximately 35 cm from the incisors. The diaphragmatic hiatus was found at 40 cm from the incisors. Her anastomosis was found at 40 cm, consistent with approximately 5 cm gastric pouch. No large hiatus hernia was found. No evidence of foreign body was found. No active gastrojejunal ulceration was encountered. Biopsies along the gastric pouch, esophagus and jejunum were obtained. The scope was passed to 60 cm of the Barb limb. No remnant of blind jejunal limb was retained. The GI tract was desufflated. The patient tolerated the procedure well. FINDINGS: 1. No acute gastrojejunal ulceration 2. No foreign body found along the anastomosis. 3. No elongated jejunal blind pouch. 4. Squamocolumnar junction at 35 cm from the incisors. 5. Diaphragmatic hiatus at 40 cm from the incisors. 6. Gastric pouch 5 cm 7. Chronic gastritis of the gastric pouch. PLAN: 1. Upper endoscopy as needed 2. Exploratory laparoscopy due to intractable abdominal pain and gastric bypass
--- NOTE | 2023-12-26 09:48 | P.CRDCN ---
History of Present Illness History of present illness: HISTORY OF PRESENT ILLNESS: This is a 53-year-old female with a past medical history significant for coronary artery disease with previous stenting and history of Barb-en-Y gastric bypass. Patient follows with a transplant case manager at [facility] in [place]. We have been asked to see the patient in consultation for surgical clearance. Patient examined at the bedside. Patient presented to the hospital to chief complaint of abdominal pain. She underwent EGD yesterday with Dr. Dumont revealing no acute gastrojejunal ulceration or foreign body. Due to continued abdominal pain, patient is scheduled to undergo exploratory laparotomy tomorrow with Dr. Dumont. Patient currently denies any chest pain or pressure. She denies any shortness of breath. Patient does report she had a stent placed in February 2023 at [facility]. She states that she is prescribed aspirin and Pl avix although she has not taken it for approximately 3 weeks due to her abdominal pain. Patient reports she had an echocardiogram performed within 6 months at her primary cardiology office. DIAGNOSTICS: - EKG reveals sinus mechanism with no signs of acute ischemia - Laboratory data: WBC 6.5. Hemoglobin 11.8. Platelet count 234. Sodium 136. Potassium 3.8. BUN 10. Creatinine 0.59. - Current home cardiac medications include aspirin 81 mg daily, Plavix 75 mg daily, Lipitor 40 mg at night, and metoprolol succinate 50 mg at night REVIEW OF SYSTEMS: At the time of my exam: CONSTITUTIONAL: Denies fever or chills. HEENT: Denies blurred vision, vision changes, or eye pain. Denies hemoptysis CARDIOVASCULAR: Denies chest pain. Denies orthopnea. Denies PND. Denies palpitations RESPIRATORY: Denies shortness of breath. GASTROINTESTINAL: Denies abdominal pain. Denies nausea or vomiting. HEMATOLOGIC: Denies bleeding disorders. GENITOURINARY: Denies any blood in urine. SKIN: Denies pruitis. Denies rash. PHYSICAL EXAM: VITAL SIGNS: Reviewed. GENERAL: Well-developed in no acute distress. HEENT: Head is normocephalic. Pupils are equal, round. Sclerae anicteric. Mucous membranes of the mouth are moist. Neck supple. No JVD or thyromegaly LUNGS: Respirations even and unlabored. Lungs essentially clear to auscultation bilaterally. HEART: Regular rate and rhythm. S1 and S2 heard. Systolic murmur noted. ABDOMEN: Soft. Nondistended. Nontender. EXTREMITIES: Normal range of motion. No clubbing or cyanosis. Peripheral pulses intact. No lower extremity edema NEUROLOGIC: Awake and alert. Oriented x 3. ASSESSMENT: Abdominal pain, status post EGD, scheduled for exploratory laparotomy tomorrow History of Barb-en-Y gastric bypass Coronary artery disease with previous stenting to mid OM1, 02/2023 Noncompliance with aspirin and Plavix x 3 weeks due to abdominal pain Obesity: BMI 42.0 PLAN: Patient states she had an echocardiogram performed within 6 months at her primary cardiology office. Will attempt to get records. If echocardiogram is older than 6 months, will repeat echo during this hospitalization Continue to hold aspirin and Plavix due to surgery scheduled for tomorrow. Resume postoperatively when cleared by general surgery Continue additional cardiac medications There are no absolute contraindications for patient to proceed with surgery from a cardiac standpoint Patient to follow-up postdischarge with her primary transplant case manager Nurse practitioner note has been reviewed by physician. Signing provider agrees with the documented findings, assessment, and plan of care documented by LACE PINNER as a scribe. Past Medical History Past Medical History: Asthma, Blood Disorder, Chest Pain / Angina, COPD, Diabetes Mellitus, Fibromyalgia, GERD/Reflux, Hearing Disorder / Deafness, Hyperlipidemia, Hypertension, Liver Disease, Mitral Valve Prolapse (MVP), Musculoskeletal Disorder, Osteoarthritis (OA), Pneumonia, Respiratory Disorder, Sleep Apnea/CPAP/BIPAP Additional Past Medical History / Comment(s): MIGRAINES, DEGENERATIVE DISC DISEASE, FATTY LIVER, LEIDEN FACTOR 5, OCCASIONAL SWELLING IN LOWER EXT. NEUROPATHY, RLS, diabetes is in remission since surgery, chronic back pain, PATIENT HAS BEEN OFF MEDS FOR DIABETES SINCE BARIATRIC SURGERY History of Any Multi-Drug Resistant Organisms: None Reported, ESBL Date of last positivie culture/infection: 09/15/18 MDRO Source:: ESBL URINE Past Surgical History: Adenoidectomy, Appendectomy, Bariatric Surgery, Bowel Resection, Breast Surgery, Section, Cholecystectomy, Ear Surgery, Heart Catheterization, Hernia Repair, Orthopedic Surgery, Tonsillectomy Additional Past Surgical History / Comment(s): ARTHROSCOPY RT KNEE X3, RT BREAST BX-NEG, (13) MYRINGOTOMYS. laparoscopic barb-en-y with lysis of adhesions 2013; Surgical wound debridement x3 ; SX TO REMOVED SCAR TISSUE FROM PREVIOUS ABD SX;EGD ; LAP EXAM- APPY SMALL BOWEL OBSTRUCTION LYSIS OF ADHESIONS, 3 hernia repairs, 3 bowel resection, 07/2016 colon resection, adhesions removed 03/2018, part of colon and bowel removed 08/09 Past Anesthesia/Blood Transfusion Reactions: No Reported Reaction Additional Past Anesthesia/Blood Transfusion Reaction / Comment(s): SEVERE HEADACHE AFTER LAST SCOPE, clausterphobia Past Psychological History: Anxiety, Bipolar, Depression, PTSD Additional Psychological History / Comment(s): SOCIAL PHOBIA. pt lives with special needs son. has cpap machine-NO LONGER USING, and cane that she uses as needed Smoking Status: Former smoker Past Alcohol Use History: Occasional Additional Past Alcohol Use History / Comment(s): OCC CIG USE IN PAST age 20 to age 21- ONE CIG PER MONTH OR LESS Past Drug Use History: None Reported Additional Drug Use History / Comment(s): OCCASIONAL MARIJUANA-INSTRUCTED TO REFRAIN FROM USE FOR AT LEAST 24 HOURS PRIOR TO PROCEDURE - Past Family History Mother Family Medical History: Deep Vein Thrombosis (DVT), Hypertension, Pulmonary Embolus, Thyroid Disorder Additional Family Medical History / Comment(s): FACTOR 5 LEIDEN, MVP Father Family Medical History: Diabetes Mellitus, Hypertension, Myocardial Infarction (CT) Additional Family Medical History / Comment(s): AGE [address] Medications and Allergies Home Medications Medication Instructions Recorded Confirmed Type Cyclobenzaprine [Flexeril] 10 mg PO HS 08/05/16 12/23/23 History Metoprolol Succinate [Toprol XL] 50 mg PO HS 01/22/18 12/23/23 History Nitroglycerin Sl Tabs [Nitrostat] 0.4 mg PO Q5M PRN 01/22/18 12/23/23 History rOPINIRole HCL [Requip] 2 mg PO HS 03/21/18 12/23/23 History Amitriptyline HCl [Elavil] 75 mg PO HS 06/16/21 12/23/23 History Rizatriptan Benzoate [Rizatriptan] 10 mg PO BID PRN 06/16/21 12/23/23 History Topiramate [Topamax] 100 mg PO HS 06/16/21 12/23/23 History Atorvastatin [Lipitor] 40 mg PO HS 12/23/23 12/23/23 History Clopidogrel [Plavix] 75 mg PO DAILY 12/23/23 12/23/23 History Cyclobenzaprine [Flexeril] 10 mg PO DAILY PRN 12/23/23 12/23/23 History Omeprazole 40 mg PO DAILY PRN 12/23/23 12/23/23 History Pregabalin [Lyrica] 150 mg PO BID 12/23/23 12/23/23 History rOPINIRole HCL [Requip] 1 - 2 mg PO DAILY PRN 12/23/23 12/23/23 History Allergies Allergy/AdvReac Type Severity Reaction Status Date / Time Sulfa (Sulfonamide Allergy Severe Anaphylaxis Verified 12/23/23 17:53 Antibiotics) adhesive tape Allergy BLISTERS Verified 12/23/23 17:53 amoxicillin [From Augmentin] Allergy Rash/Hives Verified 12/23/23 17:53 clavulanic acid Allergy Rash/Hives Verified 12/23/23 17:53 [From Augmentin] codeine Allergy ABDOMINAL Verified 12/23/23 17:53 PAIN, MIGRAINE HEADACHE Iodinated Contrast Media Allergy Itching Verified 12/23/23 17:53 [Iodinated Contrast- Oral and IV Dye] Penicillins Allergy Rash/Hives/Itching/Gi Verified 12/23/23 17:53 Upset adhesive AdvReac Itching Verified 12/23/23 17:53 artificial sweetners Allergy Nausea, Uncoded 12/23/23 11:59 MIGRAINE HEADACHE Physical Exam Vitals: Vital Signs Temp Pulse Resp BP BP Pulse Ox 12/26/23 07:55 97.4 F L 69 16 136/69 12/26/23 01:02 98.0 F 65 19 113/70 97 12/25/23 18:51 98.3 F 61 18 141/85 95 12/25/23 13:42 98.3 F 71 17 128/72 93 L 12/25/23 11:34 98.2 F 64 17 150/89 95 Intake and Output 12/25/23 12/26/23 12/26/23 22:59 06:59 14:59 Other: # Voids 3 1 Results 12/23/23 12:31 12/25/23 02:47 Current Medications Generic Name Dose Route Start Last Admin Trade Name Freq PRN Reason Stop Dose Admin Amitriptyline HCl 75 mg 12/24/23 21:00 12/25/23 22:09 Amitriptyline Hcl 25 Mg Tab PO Not Given HS JERALD Cyclobenzaprine HCl 10 mg 12/24/23 10:15 Cyclobenzaprine 10 Mg Tab PO DAILY PRN Muscle Spasm Cyclobenzaprine HCl 10 mg 12/24/23 21:00 12/25/23 22:04 Cyclobenzaprine 10 Mg Tab PO 10 mg HS JERALD Administration Hydromorphone HCl 0.5 mg 12/24/23 10:35 12/26/23 06:53 Hydromorphone 0.5 Mg/0.5 Ml Syringe IVP 0.5 mg Q3HR PRN Administration Pain Metoprolol Succinate 50 mg 12/24/23 21:00 12/25/23 22:05 Metoprolol Succinate (Er) 50 Mg Tab.Er.24h PO 50 mg HS JERALD Administration Ondansetron HCl 4 mg 12/24/23 10:36 12/26/23 06:52 Ondansetron 4 Mg/2 Ml Vial IVP 4 mg Q6HR PRN Administration Nausea And Vomiting Pantoprazole Sodium 40 mg 12/24/23 10:15 Pantoprazole 40 Mg Tablet PO DAILY PRN ACID REFLUX Pregabalin 150 mg 12/24/23 10:30 12/25/23 22:04 Pregabalin 75 Mg Cap PO 150 mg BID JERALD Administration Ropinirole HCl 1 mg 12/24/23 10:15 12/25/23 22:04 Ropinirole Hcl 1 Mg Tab PO 1 mg DAILY PRN Administration RESTLESS LEGS Ropinirole HCl 2 mg 12/24/23 21:00 12/25/23 22:09 Ropinirole Hcl 1 Mg Tab PO Not Given HS JERALD Sumatriptan Succinate 100 mg 12/24/23 10:15 Sumatriptan Succinate 50 Mg Tab PO BID PRN Migraine Headache Topiramate 100 mg 12/24/23 21:00 12/25/23 22:05 Topiramate 100 Mg Tab PO 100 mg HS JERALD Administration Intake and Output 12/25/23 12/26/23 12/26/23 22:59 06:59 14:59 Other: # Voids 3 1 12/23/23 12:31 12/25/23 02:47
[2023-12-26] MEDS: CYCLOBENZAPRINE 10 MG TAB PO PRN (10:16)
--- NOTE | 2023-12-26 13:53 | P.PN ---
Subjective Progress Note Date: 12/26/23 SURGICAL PROGRESS NOTE CHIEF COMPLAINT: Abdominal pain HISTORY OF PRESENT ILLNESS: Patient status post EGD and colonoscopy with results reporting a highly redundant colon, chronic gastritis of the gastric pouch and diaphragmatic hiatus. Patient continues to have abdominal pain. She was evaluated by cardiology for cardiac risk assessment and cleared for surgery. Vital stable. PHYSICAL EXAM: VITAL SIGNS: Reviewed. GENERAL: Well-developed in no acute distress. HEENT: No sclera icterus. Extraocular movements grossly intact. Moist buccal mucosa. Head is atraumatic, normocephalic. ABDOMEN: Soft. Obese. Nondistended. Tenderness epigastric and left side of abdomen with palpation NEUROLOGIC: Alert and oriented. Cranial nerves II through XII grossly intact. ASSESSMENT: 1. Abdominal pain 2. History of Barb-en-Y gastric bypass 3. History of multiple abdominal surgeries PLAN: -Patient scheduled for exploratory laparoscopy due to intractable abdominal pain and gastric bypass tomorrow with Dr. Dumont -Adelaidep.o. after midnight Physician Devil Tender note has been reviewed by physician. Signing provider agrees with the documented findings, assessment, and plan of care. Objective - Vital Signs Vital signs: Vital Signs Temp 97.5 F L 12/26/23 13:23 Pulse 66 12/26/23 13:23 Resp 16 12/26/23 13:23 BP 130/60 12/26/23 13:23 Pulse Ox 97 12/26/23 01:02 FiO2 Intake & Output 12/25/23 12/26/23 12/26/23 18:59 06:59 18:59 Intake Total 200 Balance 200 Intake: IV 200 Other: # Voids 3 1 # Bowel Movements 1 - Labs CBC & Chem 7: 12/23/23 12:31 12/25/23 02:47
--- NOTE | 2023-12-26 17:15 | CA ---
Transthoracic Echo Report Name: Jeannie Klein Age: 53 Gender: F : 1970 Exam Date: 12/26/2023 13:49 Exam Location: [facility] Ht (in): 60 Wt (lb): 215 Ordering Physician: Sindi Bush Attending/Referring Phys: [id number], Eleazar Drum Printer Jie Cueto RDCS Procedure CPT: Indications: LV Function, hx CAD, pending surgical clearance Cardiac Hx: Preop cardiac evaluation Technical Quality: Fair Contrast 1: Total Dose (mL): Contrast 2: Total Dose (mL): MEASUREMENTS (Male / Female) Normal Values 2D ECHO LV Diastolic Diameter PLAX 4.1 cm 4.2 - 5.9 / 3.9 - 5.3 cm LV Systolic Diameter PLAX 2.4 cm IVS Diastolic Thickness 1.5 cm 0.6 - 1.0 / 0.6 - 0.9 cm LVPW Diastolic Thickness 1.2 cm 0.6 - 1.0 / 0.6 - 0.9 cm LV Relative Wall Thickness 0.7 RV Internal Dim ED PLAX 3.2 cm LA Volume 81.2 cm??? 18 - 58 / 22 - 52 cm??? LA Volume Index 38.9 cm???/m??? 16 - 28 cm???/m??? M-MODE Aortic Root Diameter MM 3.2 cm LA Systolic Diameter MM 4.1 cm LA Ao Ratio MM 1.3 AV Cusp Separation MM 1.8 cm DOPPLER AV Peak Velocity 172.9 cm/s AV Peak Gradient 12.0 mmHg AV Mean Velocity 120.0 cm/s AV Mean Gradient 6.4 mmHg AV Velocity Time Integral 37.9 cm LVOT Peak Velocity 114.8 cm/s LVOT Peak Gradient 5.3 mmHg LVOT Velocity Time Integral 25.9 cm MV Area PHT 3.9 cm??? Mitral E Point Velocity 103.6 cm/s Mitral A Point Velocity 99.4 cm/s Mitral E to A Ratio 1.0 MV Deceleration Time 192.7 ms MV E' Velocity 10.4 cm/s Mitral E to MV E' Ratio 10.0 FINDINGS Left Ventricle Moderately increased left ventricular wall thickness. Left ventricular cavity size normal. Normal left ventricular systolic function with no obvious regional wall motion abnormalities. Left ventricular ejection fraction is estimated at 55-60 %. Grade 1 diastolic dysfunction. Right Ventricle Normal right ventricular size and function. Right ventricular systolic pressure within normal limits. Right Atrium Normal right atrial size. Left Atrium Moderately increased left atrial volume. Mildly increased left atrial area. Mitral Valve Structurally normal mitral valve. No mitral stenosis, regurgitation or prolapse. Aortic Valve Trileaflet aortic valve. No aortic valve stenosis or regurgitation. Tricuspid Valve Structurally normal tricuspid valve. Mild tricuspid regurgitation. Pulmonic Valve Structurally normal pulmonic valve. Pericardium No pericardial effusion. Aorta Normal size aortic root and proximal ascending aorta. CONCLUSIONS Normal LV function Previewed by: Dr. Chris Coronado MD (Electronically Signed) Final Date: 26 December 2023 17:13
[2023-12-26] MEDS: ALPRAZolam 0.25 MG TAB PO PRN (21:33)
[2023-12-27] MEDS: IV FLUID CONTINUATION 1,000 ML IV ONE (19:43)
--- NOTE | 2023-12-27 19:52 | P.HPADDEND ---
H&P Addendum H&P Addendum Date: 12/27/23 Patient still reporting moderate to severe intractable left upper quadrant including periumbilical pain. She points to a mass above the umbilicus also causing moderate to severe pain. Will proceed with robotic lysis of adhesions including excision of abdominal wall mass.
[2023-12-27] MEDS ORDERED: ROCURONIUM 10 MG/ML (5 ML VIAL) IV ONE (20:07)
[2023-12-27] MEDS ORDERED: SUCCINYLCHOLINE CHLORIDE 200 MG/10 ML VIAL IV ONE (20:07)
[2023-12-27] MEDS ORDERED: ROPIVACAINE 5 MG/ML 30 ML VIAL ONE (20:07)
[2023-12-27] MEDS ORDERED: fentaNYL (PF) 50 MCG/ML 2 ML AMP ONE (20:07)
[2023-12-27] MEDS ORDERED: SODIUM CHLORIDE 0.9% (PF) 10 ML VIAL ONE (20:07)
[2023-12-27] MEDS ORDERED: NEOSTIGMINE 1 MG/ML 10 ML VIAL ONE (20:07)
[2023-12-27] MEDS ORDERED: MIDAZOLAM 2 MG/2 ML VIAL ONE (20:07)
[2023-12-27] MEDS ORDERED: GLYCOPYRROLATE 0.2 MG/ML 2 ML VIAL ONE (20:07)
[2023-12-27] MEDS ORDERED: LIDOCAINE 1% INJ 10MG/ML (20 ML MDV) ONE (20:07)
[2023-12-27] MEDS ORDERED: PROPOFOL 10 MG/ML 20 ML VIAL IV ONE (20:07)
[2023-12-27] MEDS ORDERED: ceFAZolin 1 GM/50 ML BAG (PMX) ONE (20:07)
[2023-12-27] MEDS: SODIUM CHLORIDE 0.9% 50 ML with ceFAZolin 2,000 MG IV ONE (20:10)
--- NOTE | 2023-12-27 20:32 | P.ANPRN ---
Procedure Note - Anesthesia - Nerve Block Performed Bilateral Erector Spinae Single Time Out Performed: Yes (1952) Date of Procedure: 12/27/23 Procedure Start Time: 19:54 Procedure Stop Time: 20:01 Location of Patient: PreOp Indication: Acute Post-Operative Pain, Requested by Surgeon Sedation Type: Sedate with meaningful contact maintained Preparation: Sterile Prep, Sterile Dressing Position: Prone Catheter: None Needle Types: Pajunk Needle Gauge: 21 Ultrasound used to visualize needle placement: Yes Ultrasound used to observe medication spread: Yes Injectate: 0.5% Ropivacaine (see comment for volume) (20 mL of block solution on each side containing 15 mL of 0.5% ropivacaine mixed with 5 mL of preservative- free normal saline.) Blood Aspirated: No Pain Paresthesia on Injection Noted: No Image Stored and Saved: Yes Events: Uneventful and Well Tolerated
[2023-12-27] MEDS: LIDOCAINE 1%-EPI 1:100,000 20 ML VIAL SQ ONE (20:55)
[2023-12-27] MEDS: LACTATED RINGERS 1,000 ML IV ONE (21:45)
--- NOTE | 2023-12-27 21:57 | PN ---
PROGRESS NOTE SUBJECTIVE: A 53-year-old lady, who was admitted to hospital with abdominal pain and we were consulted for preop cardiac evaluation prior to cholecystectomy. On an echocardiogram I performed, she has normal LV systolic function. She is an acceptable risk candidate for surgery under anesthesia. OBJECTIVE: GENERAL: Comfortable at rest. VITAL SIGNS: Heart rate is 59 beats per minute. Blood pressure is 146/74, respiratory rate is 18. CHEST: Reveals good air entry bilaterally. HEART: Reveals first and second heart sounds. No gallop. No murmur. ABDOMEN: Soft, nontender. EXTREMITIES: Did not reveal any edema. Peripheral pulses are felt. ASSESSMENT: 1. Preop cardiac evaluation. 2. Coronary artery disease. 3. Status post gastric bypass. PLAN: The patient is an acceptable risk candidate for surgery under anesthesia. She can hold aspirin as needed. We will follow the patient on an as-needed basis. MMKELLYL / IJN: [id number] /
[2023-12-27] MEDS ORDERED: NALOXONE 0.4 MG/ML 1 ML VIAL IV PRN ×2 (22:16→22:32)
--- NOTE | 2023-12-27 22:31 | P.OP ---
Date of Procedure: 12/27/23 Description of Procedure: SURGEON: SAM NORHT MD STAFF COUNSELOR: LAZARO PREOPERATIVE DIAGNOSES: 1. Intractable left upper quadrant, epigastric abdominal pain including periumbilical pain with swelling 2. History of gastric bypass 3. History of peritoneal adhesions and abdominal pain 4. History of remote abdominal surgeries 5. Morbid obesity excess calories, BMI 42.0 6. Chronic pain syndrome due to fibromyalgia 7. Hypertensive heart disease 8. Coronary artery disease 9. Generalized anxiety disorder 10. Chronic lower back pain 11. Gastroesophageal reflux disease 12. Hyperlipidemia 13. Restless leg syndrome 14. Chronic struct of pulmonary disease 15. Mitral valve prolapse 16. Migraines 17. Neuropathy 18. Factor V Leiden deficiency 19. Abnormal CT scan of foreign body periumbilical area POSTOPERATIVE DIAGNOSES: 1. Intractable abdominal pain due to internal hernia and small bowel volvulus including adhesions 2. Abdominal wall foreign body, periumbilical 3. Intermittent small bowel obstruction and large bowel obstruction due to small bowel volvulus 4. History of remote abdominal surgeries 5. Morbid obesity excess calories, BMI 42.0 6. Chronic pain syndrome due to fibromyalgia 7. Hypertensive heart disease 8. Coronary artery disease 9. Generalized anxiety disorder 10. Chronic lower back pain 11. Gastroesophageal reflux disease 12. Hyperlipidemia 13. Restless leg syndrome 14. Chronic struct of pulmonary disease 15. Mitral valve prolapse 16. Migraines 17. Neuropathy 18. Factor V Leiden deficiency 19. History of gastric bypass OPERATION: 1. Robotic-assisted da Rocio Xi laparoscopic with extensive lysis of adhesions over 1 hr 2. Robotic-assisted da Rocio Xi laparoscopic reduction of small bowel volvulus and internal hernia 3. Removal of foreign body abdominal wall 3 x 2 cm ESTIMATED BLOOD LOSS: 5 mL. SPECIMENS REMOVED: Foreign body abdominal wall COMPLICATIONS: None. OPERATIVE FINDINGS: 1. No ventral hernias identified. 2. Moderately dilated descending and sigmoid colon due to mechanical bowel obstruction from volvulus 3. Long mesentery of the small bowel with small bowel volvulus reduced 4. Complete scarring of Harvey defect and jejunojejunostomy mesenteric defect 5. Adhesion of gastrojejunal anastomosis to the anterior abdominal wall released 6. Early mesenteric ischemia resolved after reduction 7. Foreign body of abdominal wall periumbilical 3 x 2 cm excised from bowel staplers 8. Normal terminal ileum and cecum unremarkable. INDICATIONS: The patient is a 53-year-old female who presents with intractable periumbilical including epigastric left upper quadrant abdominal pain for over 3+ months. Patient has gone to the emergency room on multiple occasions however she reports the pain was severe prompting her to the emergency room. She reported change in bowel habits including epigastric pain where upper and lower endoscopy were performed to exclude gastrojejunal ulcers as well as early colitis contributing to her pain. Surgical intervention with diagnostic laparoscopy, lysis of adhesions were described. Informed consent was obtained. Robotic assisted laparoscopic approach was described. Benefits and risks of the procedure including but not limited to bleeding, infection, injury to the small bowel was described. Informed consent was obtained. DESCRIPTION OF PROCEDURE: Patient was brought to the operating room, placed in supine position. After general induction, the abdomen had been prepped and draped in standard sterile fashion. The robotic da Rocio XI system was primed. After a timeout protocol was performed, the patient had been prepped and draped in standard sterile fashion. The robot was docked along the right lateral abdomen. The patient was repositioned in with right side up. Please note prior to docking of the robot; however, a 5 mm 0 degrees laparoscopic trocar entry was performed along the left upper quadrant. The abdomen was insufflated to 15 mmHg pressure which she tolerated well. Diagnostic laparoscopy was performed. Next, three 8 mm robotic ports were placed along the right lateral abdominal wall. The camera 8-mm port was maintained along mid-lateral abdomen. Please note that the ports were placed at least 10 to 15 cm away from the target anatomy. Instruments including graspers and vessel sealer were interchanged by the family service assistant. I had sat at the console. No abdominal wall incisional hernia was identified. Moderately dilated descending colon the left upper quadrant was obtained notified over 6 cm in size. Mesenteric swirling on the epigastrium left upper quadrant was identified suspicious for internal hernia and small bowel volvulus. The small bowel was investigated from the terminal ileum to the ligament of Treitz with finding of redundant mesentery with active small bowel volvulus involving the jejunum to the left upper quadrant retroperitoneum. Abnormal adhesions to the gastrojejunostomy from the liver to the anastomosis created an internal hernia that was was identified and divided. The mesentery small bowel volvulus were reduced. No herniation of bowel was found along the Harvey defect. Moderate gaseous distention of sigmoid colon was identified with functional obstruction at the left pelvis from the small bowel volvulus contributed to a large including small bowel obstruction. Once the small bowel volvulus was reduced, the access here of the descending colon and sigmoid colon was compressed. The terminal ileum and cecum was unremarkable. Extensive lysis of adhesions over 1 hr was performed. The small bowel was viable.The robot was undocked. Attention was brought to the periumbilical area where a very firm mass of 3 cm superior to the umbilicus was found and 3 x 2 cm elliptical incision was made with removal of foreign body consistent with small staplers from bowel resec tion. Specimen was excised and passed off for further pathological analysis. Hemostasis was checked. All pneumoperitoneum instruments were evacuated from the abdominal cavity. The incisions were reapproximated using 4-0 Monocryl in an interrupted subcuticular fashion. Please note along the trocar sites, local anesthetic was placed as a field block prior to insertion of all instruments. Dermabond glue with Dermabond tape was applied to the skin. Optifoam dressing was placed at the excision of foreign body. At the end of the procedure needle, sponge, and instrument count had been verified correct by the surgical instrument repair specialist. The patient was transferred to postanesthesia care unit in stable condition.
[2023-12-27] MEDS: HYDROmorphone 0.5 MG/0.5 ML SYRINGE IVP ONE (22:32)
[2023-12-27] MEDS: HYDROmorphone 0.5 MG/0.5 ML SYRINGE IVP PRN (22:47)
[2023-12-27] MEDS: DEXAMETHASONE SOD PHOSPHATE 4 MG/ML 1 ML VIAL IV ONE (23:30)
[2023-12-27] MEDS: LACTATED RINGERS 1,000 ML IV SCH (23:30)
[2023-12-27] MEDS: ONDANSETRON 4 MG/2 ML VIAL IVP ONE (23:30)
[2023-12-27] MEDS: HEPARIN SODIUM,PORCINE 5,000 UNIT/ML 1 ML VIAL SQ STA (23:31)
[2023-12-27] MEDS: SODIUM CHLORIDE 0.9% 1,000 ML IV SCH (23:36)
[2023-12-27] MEDS: SODIUM CHLORIDE 0.9% 2,000 ML IV ONE (23:41)
[2023-12-28] MEDS: fentaNYL PCA 500 MCG/50 ML BAG IV SCH (00:21)
[2023-12-28] MEDS: ACETAMINOPHEN IV (For NPO) 1,000 MG in EMPTY BAG 1 BAG IVPB SCH (01:36)
[2023-12-28] MEDS: KETOROLAC 15 MG/ML 1 ML VIAL IVP SCH (01:36)
[2023-12-28] MEDS ORDERED: HYDROmorphone 0.5 MG/0.5 ML SYRINGE IVP PRN (07:00)
[2023-12-28] MEDS: PANTOPRAZOLE 40 MG/10 ML VIAL IV SCH (08:49)
[2023-12-28] MEDS: SIMETHICONE 40 MG/0.6 ML DROPS 2,000 MG/30 ML BOTTLE PO SCH (08:49)
[2023-12-28] MEDS: ENOXAPARIN 40 MG/0.4 ML SYRINGE SQ SCH (08:49)
--- NOTE | 2023-12-28 10:32 | P.PN ---
Subjective Progress Note Date: 12/28/23 Principal diagnosis: Abdominal pain Patient says her pain she was having preoperatively is improved. Now she is having incisional discomfort. She says she is quite tired. Some nausea. States she does not feel she is ready for discharge today send surgery finished so late yesterday evening. Objective - Vital Signs Vital signs: Vital Signs Temp 98.0 F 12/28/23 06:55 Pulse 61 12/28/23 06:55 Resp 16 12/28/23 06:55 BP 129/82 12/28/23 06:55 Pulse Ox 96 12/28/23 06:55 FiO2 Intake & Output 12/27/23 12/28/23 12/28/23 18:59 06:59 18:59 Intake Total 1500 Output Total 5 Balance 1495 Weight 97.522 kg Intake: IV 1500 Output: Estimated Blood Loss 5 Other: Voiding Method Toilet # Voids 3 0 - Exam Abdomen: Soft, nondistended, mild tenderness, incisions clean and dry - Labs CBC & Chem 7: 12/23/23 12:31 12/25/23 02:47 Assessment and Plan (1) Abdominal pain Narrative/Plan: Patient seems to be doing fairly well after recent surgery. Keep today. Increase activity. Monitor oral intake. Anticipate discharge tomorrow morning. Current Visit: Yes Status: Acute Code(s): R10.9 - UNSPECIFIED ABDOMINAL PAIN SNOMED Code(s): 99699939
[2023-12-28] MEDS: ATORVASTATIN 40 MG TAB PO SCH (22:10)
[2023-12-29] MEDS: ASPIRIN 81 MG PO SCH (08:05)
--- NOTE | 2023-12-29 09:34 | P.DS ---
Providers Date of admission: 12/23/23 17:16 Expected date of discharge: 12/29/23 Attending physician: Latricia Dumont Consults: 12/25/23 17:54 Consult Physician Routine Consulting Provider: Thomas Darling Consult Reason/Comments: medical clearance Do you want consulting provider notified?: Yes Primary care physician: Thelma Schwartz MD - Discharge Diagnosis(es) (1) Abdominal pain Patient was hospitalized with abdominal pain. Saturday evening patient underwent laparoscopic lysis of adhesions. Patient has had an improvement in her symptoms. Passing flatus. No nausea or vomiting. Yesterday the patient felt she was not prepared for discharge. Patient is ready for going home at this time. Will plan discharge. Follow-up with Dr. Dumont 1 week. Current Visit: Yes Status: Acute Plan - Discharge Summary Discharge Rx Participant: No New Discharge Prescriptions: New Simethicone [Gas-X] 125 mg PO AC-TID PRN #20 capsule PRN Reason: Pain Acetaminophen Tab [Tylenol Tab] 1,000 mg PO Q6HR PRN #30 tablet PRN Reason: Pain Continue Cyclobenzaprine [Flexeril] 10 mg PO HS Nitroglycerin Sl Tabs [Nitrostat] 0.4 mg PO Q5M PRN PRN Reason: Chest Pain Metoprolol Succinate [Toprol XL] 50 mg PO HS rOPINIRole HCL [Requip] 2 mg PO HS Topiramate [Topamax] 100 mg PO HS Cyclobenzaprine [Flexeril] 10 mg PO DAILY PRN PRN Reason: Muscle Spasm rOPINIRole HCL [Requip] 1 - 2 mg PO DAILY PRN PRN Reason: RESTLESS LEGS Pregabalin [Lyrica] 150 mg PO BID Atorvastatin [Lipitor] 40 mg PO HS Omeprazole 40 mg PO DAILY PRN PRN Reason: ACID REFLUX Rizatriptan Benzoate [Rizatriptan] 10 mg PO BID PRN PRN Reason: Migraine Headache Amitriptyline HCl [Elavil] 75 mg PO HS Clopidogrel [Plavix] 75 mg PO DAILY Discharge Medication List Cyclobenzaprine [Flexeril] 10 mg PO HS 08/05/16 [History] Metoprolol Succinate [Toprol XL] 50 mg PO HS 01/22/18 [History] Nitroglycerin Sl Tabs [Nitrostat] 0.4 mg PO Q5M PRN 01/22/18 [History] rOPINIRole HCL [Requip] 2 mg PO HS 03/21/18 [History] Amitriptyline HCl [Elavil] 75 mg PO HS 06/16/21 [History] Rizatriptan Benzoate [Rizatriptan] 10 mg PO BID PRN 06/16/21 [History] Topiramate [Topamax] 100 mg PO HS 06/16/21 [History] Atorvastatin [Lipitor] 40 mg PO HS 12/23/23 [History] Clopidogrel [Plavix] 75 mg PO DAILY 12/23/23 [History] Cyclobenzaprine [Flexeril] 10 mg PO DAILY PRN 12/23/23 [History] Omeprazole 40 mg PO DAILY PRN 12/23/23 [History] Pregabalin [Lyrica] 150 mg PO BID 12/23/23 [History] rOPINIRole HCL [Requip] 1 - 2 mg PO DAILY PRN 12/23/23 [History] Acetaminophen Tab [Tylenol Tab] 1,000 mg PO Q6HR PRN #30 tablet 12/27/23 [Rx] Simethicone [Gas-X] 125 mg PO AC-TID PRN #20 capsule 12/27/23 [Rx] Follow up Appointment(s)/Referral(s): Thelma Schwartz MD [Primary Care Provider] - 1-2 days [place], [place] [NON-STAFF] - 01/01/24 3:00 pm Patient Instructions/Handouts: Excision of Skin Lesion (GEN), Lysis of Abdominal Adhesions (DC) Activity/Diet/Wound Care/Special Instructions: DO NOT REMOVE DRESSINGS. Surgeon to remove dressing in bariatric center. NO LONG DRIVES OR AIRPLANE RIDES OVER 60 MINUTES FOR THE NEXT 2 WEEKS, 01/10/24, DUE TO HIGH RISK OF PULMONARY EMBOLISM/DVTs May drive in 72 hrs, 12/30/23 No lifting over 10 pounds in 2 weeks until 01/10/24, May shower. No bath tub soaks for two weeks until 01/10/24, Diet as tolerated. Use Tylenol, simethicone scheduled for the next 24-48 hours for best pain relief. Use ice along incisions for today to prevent swelling. Discharge/Stand Alone Forms: Outpatient Counseling, Outpatient Therapy List
[2023-12-29 09:59] VITALS: BP 158/86; PULSE 52; RESP 16; TEMP 97.6
== END 2023-12-29 12:27 | disposition home or self-care (01) | DRG 326 ==
LOC: EC 11:37 → OBSVTOIN 17:16 → 4SSUR 17:16
PROVIDERS: ADMIT Surgery Plastic and Reconstructive Surgery; ATTEND Surgery Plastic and Reconstructive Surgery
PROC: 0DB58ZX Excision of Esophagus, Via Natural or Artificial Opening Endoscopic, Diagnostic (ICD-10-PCS; 2023-12-25)
PROC: 0DB68ZX Excision of Stomach, Via Natural or Artificial Opening Endoscopic, Diagnostic (ICD-10-PCS; 2023-12-25)
PROC: 0DBA8ZX Excision of Jejunum, Via Natural or Artificial Opening Endoscopic, Diagnostic (ICD-10-PCS; 2023-12-25)
PROC: 0DNW4ZZ Release Peritoneum, Percutaneous Endoscopic Approach (ICD-10-PCS; 2023-12-27)
PROC: 0WQF4ZZ Repair Abdominal Wall, Percutaneous Endoscopic Approach (ICD-10-PCS; 2023-12-27)
PROC: 8E0W4CZ Robotic Assisted Procedure of Trunk Region, Percutaneous Endoscopic Approach (ICD-10-PCS; 2023-12-27)
PROC: 0DN64ZZ Release Stomach, Percutaneous Endoscopic Approach (ICD-10-PCS; 2023-12-27)
PROC: 0DNA4ZZ Release Jejunum, Percutaneous Endoscopic Approach (ICD-10-PCS; principal; 2023-12-27 07:30)
DX: K45.0 Other specified abdominal hernia with obstruction, without gangrene (principal); K56.2 Volvulus; D68.51 Activated protein C resistance; K55.9 Vascular disorder of intestine, unspecified; Z68.41 Body mass index [BMI] 40.0-44.9, adult; Q43.8 Other specified congenital malformations of intestine; E66.01 Morbid (severe) obesity due to excess calories; E11.40 Type 2 diabetes mellitus with diabetic neuropathy, unspecified; E78.5 Hyperlipidemia, unspecified; F31.9 Bipolar disorder, unspecified; F41.1 Generalized anxiety disorder; F43.10 Post-traumatic stress disorder, unspecified; G25.81 Restless legs syndrome; G43.909 Migraine, unspecified, not intractable, without status migrainosus; G89.4 Chronic pain syndrome; K64.8 Other hemorrhoids; H91.90 Unspecified hearing loss, unspecified ear; I11.9 Hypertensive heart disease without heart failure; I25.10 Atherosclerotic heart disease of native coronary artery without angina pectoris; I34.1 Nonrheumatic mitral (valve) prolapse; K21.9 Gastro-esophageal reflux disease without esophagitis; T39.016A Underdosing of aspirin, initial encounter; T45.526A Underdosing of antithrombotic drugs, initial encounter; K29.50 Unspecified chronic gastritis without bleeding; K66.0 Peritoneal adhesions (postprocedural) (postinfection); K64.0 First degree hemorrhoids; M79.7 Fibromyalgia; Z98.84 Bariatric surgery status; Z79.02 Long term (current) use of antithrombotics/antiplatelets; Z79.899 Other long term (current) drug therapy; Z87.891 Personal history of nicotine dependence; Z79.82 Long term (current) use of aspirin; Z90.49 Acquired absence of other specified parts of digestive tract; Z95.5 Presence of coronary angioplasty implant and graft; Z87.11 Personal history of peptic ulcer disease; Z91.148 Patient's other noncompliance with medication regimen for other reason
CPT/HCPCS: 36410; 36415; 43239; 45378; 74177; 76937; 80048; 80053; 81003; 81025; 82150; 83605; 83690; 85025; 88305; 88307; 88312; 88313; 93005; 93306; 96361; 96374; 96375; 99285

== ENCOUNTER → 2024-01-01 | Outpatient (CLI) | payer MEDICARE ==
[2024-01-01 15:53] VITALS: BP 142/84; PULSE 63; RESP 16; TEMP 98; BMI 41.3
--- NOTE | 2024-01-01 16:06 | P.BASOAP ---
Subjective Progress Note Date: 01/01/24 She is doing better. She had burning along the skin. She reports trouble with bowel habits. May give lactulose. Get labs today. Objective - Vital Signs Vital signs: Vital Signs Temp 98 F 01/01/24 15:33 Pulse 63 01/01/24 15:33 Resp 16 01/01/24 15:33 BP 142/84 01/01/24 15:33 Pulse Ox FiO2 Intake & Output 12/31/23 01/01/24 01/01/24 18:59 06:59 18:59 Weight 96.162 kg Assessment/Plan Plan: Date: 01/01/24 Initial Weight: 140.432 kg Initial BMI: 60.4 Current Weight: 96.162 kg Current BMI: 41.3 Type of Surgery: Total Volume in Band: Previous Volume: Volume Removed: Volume Added: Band Size:
== END ==
LOC: BARWHC3 14:35
PROVIDERS: ATTEND Surgery Plastic and Reconstructive Surgery
DX: E66.01 Morbid (severe) obesity due to excess calories (principal); F17.210 Nicotine dependence, cigarettes, uncomplicated; Z68.41 Body mass index [BMI] 40.0-44.9, adult; Z88.2 Allergy status to sulfonamides; Z91.09 Other allergy status, other than to drugs and biological substances; Z91.041 Radiographic dye allergy status; Z88.8 Allergy status to other drugs, medicaments and biological substances; Z88.0 Allergy status to penicillin; Z88.5 Allergy status to narcotic agent
CPT/HCPCS: 99211

== ENCOUNTER → 2024-01-01 | Outpatient (CLI) | payer MEDICARE ==
[2024-01-01 17:22] LABS: Partial Thromboplastin Time 24.6 sec (22.0-30.0); Prothrombin Time 10.6 sec (10.0-12.5)
[2024-01-02 02:10] LABS: HCT 39.5 % (37.2-46.3); MCH 29.2 pg (27.0-32.0); MCHC 32.9 g/dL (32.0-37.0); MCV 88.8 FL (80.0-97.0); Mean Platelet Volume 11.7 FL (9.5-12.2); NRBC Per 100 WBC 0 X 10*3/uL (0.00-0.01); Platelet Count 181 X 10*3/uL (140-440); RBC 4.45 X 10*6/uL (4.10-5.20); RDW 13.2 % (11.5-14.5); WBC 7.68 X 10*3/uL (4.50-10.00)
[2024-01-02 03:17] LABS: Prealbumin 20.4 mg/dL (18.0-42.0)
[2024-01-02 03:44] LABS: Chol/HDL Ratio 2.62 Ratio; Magnesium 2.1 mg/dL (1.5-2.4); VLDL Calculation 15.14 mg/dL (5.00-40.00)
[2024-01-02 03:45] LABS: % Iron Saturation 10.84 (12.00-45.00); ALT 26 U/L (8-44); AST 31 U/L (13-35); Albumin 4.5 g/dL (3.8-4.9); Albumin/Globulin Ratio 1.73 Ratio (1.60-3.17); Alkaline Phosphatase 135 U/L (41-126); BUN/Creat Ratio 18.38 Ratio (12.00-20.00); Blood Urea Nitrogen 14.7 mg/dL (9.0-27.0); Calcium 9.6 mg/dL (8.7-10.3); Carbon Dioxide 23.5 mmol/L (21.6-31.8); Chloride 104 mmol/L (96-109); Globulin 2.6 g/dL (1.6-3.3); Glucose 157 mg/dL (70-110); Iron 54 UG/DL (50-170); LDL Cholesterol,Calculated 95.5 mg/dL (0.0-131.0); Phosphorus 3.5 mg/dL (2.4-5.1); Potassium 4.2 mmol/L (3.5-5.5); Sodium 138 mmol/L (135-145); Total Bilirubin 0.6 mg/dL (0.3-1.2); Total Iron Binding Capacity 498 UG/DL (228-460); Total Protein 7.1 g/dL (6.2-8.2)
[2024-01-02 11:56] LABS: Zinc, Serum 78 ug/dL (60-130)
[2024-01-03 06:34] LABS: Vitamin A 47 ug/dL (38-106)
[2024-01-03 11:11] LABS: Vit B1(Thiamine) 64 ug/L (38-122)
== END | disposition home or self-care (01) ==
LOC: LABWHC1 16:16
PROVIDERS: ATTEND Surgery Plastic and Reconstructive Surgery
DX: E89.1 Postprocedural hypoinsulinemia (principal); D50.8 Other iron deficiency anemias; D50.9 Iron deficiency anemia, unspecified; E44.0 Moderate protein-calorie malnutrition; E44.1 Mild protein-calorie malnutrition; E45 Retarded development following protein-calorie malnutrition; E46 Unspecified protein-calorie malnutrition; E55.9 Vitamin D deficiency, unspecified; K74.1 Hepatic sclerosis; N19 Unspecified kidney failure; T56.894A Toxic effect of other metals, undetermined, initial encounter; K50.90 Crohn's disease, unspecified, without complications; E66.01 Morbid (severe) obesity due to excess calories
CPT/HCPCS: 36415; 80053; 80061; 82306; 82525; 82607; 82728; 82746; 83036; 83540; 83550; 83735; 83970; 84100; 84134; 84255; 84425; 84443; 84590; 84630; 85027; 85610; 85730

== ENCOUNTER 2024-04-29 13:59 | Emergency (ER) | payer MEDICARE ==
[2024-04-29] MEDS: SODIUM CHLORIDE 0.9% 1,000 ML IV ONE (14:54)
--- NOTE | 2024-04-29 14:54 | ED ---
Abdominal Pain HPI - General Chief Complaint: Abdominal Pain Stated Complaint: Abd pain Time Seen by Provider: 04/29/24 14:30 Source: patient, RN notes reviewed, old records reviewed Mode of arrival: ambulatory Limitations: no limitations - History of Present Illness Initial Comments: 53-year-old female presented to the ER for evaluation of abdominal pain. Patient has an extensive past medical history including gastric bypass completed by Dr. Dumont. Patient states procedure was done approximately 11 years ago. She reports over the past 2 weeks she has been having progressively worsening abdominal pain, nausea and vomiting. She also states her abdomen appears bloated. She states this feels similar when she had a previous bowel obstruction. She has tried a liquid diet but states the pain is out of control. She endorses it mostly over her left upper quadrant with radiation inferiorly. It is a sharp stabbing pain. She admits to a normal bowel movement this morning. Patient states she is passing gas and that is extremely foul-smelling. She denies any hematochezia, hematic emesis, melena or coffee-ground emesis. She denies any fevers or chills. Patient has tried [id number] Tylenol without relief of discomfort. Patient was seen by PCP prior to arrival who instructed patient to come to the emergency department for further evaluation and treatment. No other complaints. - Related Data Home Medications Medication Instructions Recorded Confirmed Cyclobenzaprine [Flexeril] 10 mg PO HS 08/05/16 01/01/24 Metoprolol Succinate [Toprol XL] 50 mg PO HS 01/22/18 01/01/24 Nitroglycerin Sl Tabs [Nitrostat] 0.4 mg PO Q5M PRN 01/22/18 01/01/24 rOPINIRole HCL [Requip] 2 mg PO HS 03/21/18 01/01/24 Amitriptyline HCl [Elavil] 75 mg PO HS 06/16/21 01/01/24 Rizatriptan Benzoate [Rizatriptan] 10 mg PO BID PRN 06/16/21 01/01/24 Topiramate [Topamax] 100 mg PO HS 06/16/21 01/01/24 Atorvastatin [Lipitor] 40 mg PO HS 12/23/23 01/01/24 Clopidogrel [Plavix] 75 mg PO DAILY 12/23/23 01/01/24 Cyclobenzaprine [Flexeril] 10 mg PO DAILY PRN 12/23/23 01/01/24 Pregabalin [Lyrica] 150 mg PO BID 12/23/23 01/01/24 rOPINIRole HCL [Requip] 1 - 2 mg PO DAILY PRN 12/23/23 01/01/24 Previous Rx's Medication Instructions Recorded Acetaminophen Tab [Tylenol Tab] 1,000 mg PO Q6HR PRN #30 tablet 12/27/23 Simethicone [Gas-X] 125 mg PO AC-TID PRN #20 capsule 12/27/23 Lactulose [Cephulac] 30 ml PO BID #500 ml 01/01/24 Allergies Allergy/AdvReac Type Severity Reaction Status Date / Time Sulfa (Sulfonamide Allergy Severe Anaphylaxis Verified 04/29/24 14:10 Antibiotics) adhesive tape Allergy BLISTERS Verified 04/29/24 14:10 amoxicillin [From Augmentin] Allergy Rash/Hives Verified 04/29/24 14:10 clavulanic acid Allergy Rash/Hives Verified 04/29/24 14:10 [From Augmentin] codeine Allergy ABDOMINAL Verified 04/29/24 14:10 PAIN, MIGRAINE HEADACHE Iodinated Contrast Media Allergy Itching Verified 04/29/24 14:10 [Iodinated Contrast- Oral and IV Dye] Penicillins Allergy Rash/Hives/Itching/Gi Verified 04/29/24 14:10 Upset adhesive AdvReac Itching Verified 04/29/24 14:10 artificial sweetners Allergy Nausea, Uncoded 04/29/24 14:10 MIGRAINE HEADACHE Review of Systems ROS Statement: Those systems with pertinent positive or pertinent negative responses have been documented in the HPI. ROS Other: All systems not noted in ROS Statement are negative. Past Medical History Past Medical History: Asthma, Blood Disorder, Chest Pain / Angina, COPD, Diabetes Mellitus, Fibromyalgia, GERD/Reflux, Hearing Disorder / Deafness, Hyperlipidemia, Hypertension, Liver Disease, Mitral Valve Prolapse (MVP), Musculoskeletal Disorder, Osteoarthritis (OA), Pneumonia, Respiratory Disorder, Sleep Apnea/CPAP/BIPAP Additional Past Medical History / Comment(s): MIGRAINES, DEGENERATIVE DISC DISEASE, FATTY LIVER, LEIDEN FACTOR 5, OCCASIONAL SWELLING IN LOWER EXT.NEUROPATHY, RLS, diabetes is in remission since surgery, chronic back pain, PATIENT HAS BEEN OFF MEDS FOR DIABETES SINCE BARIATRIC SURGERY History of Any Multi-Drug Resistant Organisms: None Reported, ESBL Date of last positivie culture/infection: 09/15/18 MDRO Source:: ESBL URINE Past Surgical History: Adenoidectomy, Appendectomy, Bariatric Surgery, Bowel Resection, Breast Surgery, Section, Cholecystectomy, Ear Surgery, Heart Catheterization, Hernia Repair, Orthopedic Surgery, Tonsillectomy Additional Past Surgical History / Comment(s): ARTHROSCOPY RT KNEE X3, RT BREAST BX-NEG, (13) MYRINGOTOMYS. laparoscopic danielle-en-y with lysis of adhesions 2013; Surgical wound debridement x3 ; SX TO REMOVED SCAR TISSUE FROM PREVIOUS ABD SX;EGD ; LAP EXAM- APPY SMALL BOWEL OBSTRUCTION LYSIS OF ADHESIONS, 3 hernia repairs, 3 bowel resection, 07/2016 colon resection, adhesions removed 03/2018, part of colon and bowel removed 08/09 Past Anesthesia/Blood Transfusion Reactions: No Reported Reaction Additional Past Anesthesia/Blood Transfusion Reaction / Comment(s): SEVERE HEADACHE AFTER LAST SCOPE, clausterphobia Past Psychological History: Anxiety, Bipolar, Depression, PTSD Smoking Status: Former smoker Past Alcohol Use History: Occasional Past Drug Use History: None Reported - Past Family History Mother Family Medical History: Deep Vein Thrombosis (DVT), Hypertension, Pulmonary Embolus, Thyroid Disorder Additional Family Medical History / Comment(s): FACTOR 5 LEIDEN, MVP Father Family Medical History: Diabetes Mellitus, Hypertension, Myocardial Infarction ([place]) Additional Family Medical History / Comment(s): AGE 59 [place] General Exam Limitations: no limitations General appearance: alert, in no apparent distress Respiratory exam: Present: normal lung sounds bilaterally. Absent: respiratory distress, wheezes, rales, rhonchi, stridor Cardiovascular Exam: Present: regular rate, normal rhythm, normal heart sounds. Absent: systolic murmur, diastolic murmur, rubs, gallop, clicks GI/Abdominal exam: Present: soft, tenderness (Left upper quadrant), normal bowel sounds Neurological exam: Present: alert, oriented X3, CN II-XII intact Skin exam: Present: warm, dry, intact, normal color. Absent: rash Course Vital Signs 04/29/24 04/29/24 14:08 17:30 Temperature 97.8 F Pulse Rate 68 54 L Respiratory 18 19 Rate Blood Pressure 148/87 129/76 O2 Sat by Pulse 100 96 Oximetry Medical Decision Making - Medical Decision Making Was pt. sent in by a medical professional or institution (, JOSETTE, CHOCOLATE FINISHER, urgent care, hospital, or alf...) When possible be specific @ -[No] Did you speak to anyone other than the patient for history (EMS, parent, family, police, friend...)? What history was obtained from this source @ -[No] Did you review nursing and triage notes (agree or disagree)? Why? @ -[I reviewed and agree with nursing and triage notes] Were old charts reviewed (outside hosp., previous admission, EMS record, old EKG, old radiological studies, urgent care reports/EKG's, alf records)? Report findings @ -[No old charts were reviewed] Differential Diagnosis (chest pain, altered mental status, abdominal pain women, abdominal pain men, vaginal bleeding, weakness, fever, dyspnea, syncope, headache, dizziness, GI bleed, back pain, seizure, CVA, palpatations, mental health, musculoskeletal)? @ -Differential Abdominal Pain Women:Appendicitis, Cholecystitis, divert iculosis, ischemic bowel, pancreatitis, hepatitis, UTI, gastroenteritis, AAA, incarcerated hernia, bowel obstruction, constipation, inflammatory bowel, hepatitis, peptic ulcer disease, splenic infarction, perforated viscus, vulvitis, ovarian torsion, PID, kidney stone, placenta abruption, this is not meant to be an all-inclusive list EKG interpreted by me (3pts min.). @ -[As above] X-rays interpreted by me (1pt min.). @ -[None done] CT interpreted by me (1pt min.). @ -[None done] U/S interpreted by me (1pt. min.). @ -[None done] What testing was considered but not performed or refused? (CT, X-rays, U/S, labs)? Why? @ -[None] What meds were considered but not given or refused? Why? @ -[None] Did you discuss the management of the patient with other professionals (professionals i.e. JOSETTE Flores, CHOCOLATE FINISHER, lab, RT, psych nurse, group social worker, lift slab operator, teacher, tactical debriefer officer, disease case manager)? Give summary @ -[No] Was smoking cessation discussed for >3mins.? @ -[No] Was critical care preformed (if so, how long)? @ -[No] Were there social determinants of health that impacted care today? How? ( Homelessness, low income, unemployed, alcoholism, drug addiction, transportation, low edu. Level, literacy, decrease access to med. care, halfway, rehab)? @ -[No] Was there de-escalation of care discussed even if they declined (Discuss DNR or withdrawal of care, Hospice)? DNR status @ -[No] What co-morbidities impacted this encounter? (DM, HTN, Smoking, COPD, CAD, Cancer, CVA, ARF, Chemo, Hep., AIDS, mental health diagnosis, sleep apnea, morbid obesity)? @ -[None] Was patient admitted / discharged? Hospital course, mention meds given and route, prescriptions, significant lab abnormalities, going to OR and other pertinent info. @ -[hospital course] Undiagnosed new problem with uncertain prognosis? @ -[No] Drug Therapy requiring intensive monitoring for toxicity (Heparin, Nitro, Insulin, Cardizem)? @ -[No] Were any procedures done? @ -[No] Diagnosis/symptom? @ -[default] Acute, or Chronic, or Acute on Chronic? @ -[default] Uncomplicated (without systemic symptoms) or Complicated (systemic symptoms)? @ -[default] Side effects of treatment? @ -[No] Exacerbation, Progression, or Severe Exacerbation? @ -[No] Poses a threat to life or bodily function? How? (Chest pain, [place], [place], pneumonia, PE, COPD, DKA, ARF, appy, cholecystitis, CVA, Diverticulitis, Homicidal, Suicidal, threat to staff... and all critical care pts) @ -[No] - Lab Data Result diagrams: 04/29/24 15:04 04/29/24 15:04 Lab Results 04/29/24 04/29/24 04/29/24 Range/Units 15:04 15:04 15:04 WBC 5.3 (3.8-10.6) k/uL RBC 4.11 (3.80-5.40) m/uL Hgb 11.8 (11.4-16.0) gm/dL Hct 36.9 (34.0-46.0) % MCV 89.7 (80.0-100.0) fL MCH 28.7 (25.0-35.0) pg MCHC 32.0 (31.0-37.0) g/dL RDW 13.9 (11.5-15.5) % Plt Count 182 (150-450) k/uL MPV 8.9 Neutrophils % 63 % Lymphocytes % 27 % Monocytes % 7 % Eosinophils % 2 % Basophils % 1 % Neutrophils # 3.3 (1.3-7.7) k/uL Lymphocytes # 1.4 (1.0-4.8) k/uL Monocytes # 0.3 (0-1.0) k/uL Eosinophils # 0.1 (0-0.7) k/uL Basophils # 0.0 (0-0.2) k/uL Sodium 138 (137-145) mmol/L Potassium 4.5 (3.5-5.1) mmol/L Chloride 105 (98-107) mmol/L Carbon Dioxide 26 (22-30) mmol/L Anion Gap 7 mmol/L BUN 17 (7-17) mg/dL Creatinine 0.61 (0.52-1.04) mg/dL Est GFR (CKD-EPI)AfAm >90 (>60 ml/min/1.73 sqM) Est GFR (CKD-EPI)NonAf >90 (>60 ml/min/1.73 sqM) Glucose 105 H (74-99) mg/dL Plasma Lactic Acid Esteban (0.7-2.0) mmol/L Calcium 9.0 (8.4-10.2) mg/dL Total Bilirubin 0.6 (0.2-1.3) mg/dL AST 28 (14-36) U/L ALT 20 (4-34) U/L Alkaline Phosphatase 122 (38-126) U/L Total Protein 7.1 (6.3-8.2) g/dL Albumin 4.4 (3.5-5.0) g/dL Amylase 69 (30-110) U/L Lipase 110 (23-300) U/L Urine Color Colorless Urine Appearance Cloudy H (Clear) Urine pH 5.5 (5.0-8.0) Ur Specific [place] 1.015 (1.001-1.035) Urine Protein Negative (Negative) Urine Glucose (UA) Negative (Negative) Urine Ketones Negative (Negative) Urine Blood Negative (Negative) Urine Nitrite Negative (Negative) Urine Bilirubin Negative (Negative) Urine Urobilinogen <2.0 (<2.0) mg/dL Ur Leukocyte Esterase Large H (Negative) Urine RBC 1 (0-5) /hpf Urine WBC 8 H (0-5) /hpf Ur Squamous Epith Cells 6 H (0-4) /hpf Urine Bacteria Rare H (None) /hpf Urine Mucus Rare H (None) /hpf 04/29/24 Range/Units 15:04 WBC (3.8-10.6) k/uL RBC (3.80-5.40) m/uL Hgb (11.4-16.0) gm/dL Hct (34.0-46.0) % MCV (80.0-100.0) fL MCH (25.0-35.0) pg MCHC (31.0-37.0) g/dL RDW (11.5-15.5) % Plt Count (150-450) k/uL MPV Neutrophils % % Lymphocytes % % Monocytes % % Eosinophils % % Basophils % % Neutrophils # (1.3-7.7) k/uL Lymphocytes # (1.0-4.8) k/uL Monocytes # (0-1.0) k/uL Eosinophils # (0-0.7) k/uL Basophils # (0-0.2) k/uL Sodium (137-145) mmol/L Potassium (3.5-5.1) mmol/L Chloride (98-107) mmol/L Carbon Dioxide (22-30) mmol/L Anion Gap mmol/L BUN (7-17) mg/dL Creatinine (0.52-1.04) mg/dL Est GFR (CKD-EPI)AfAm (>60 ml/min/1.73 sqM) Est GFR (CKD-EPI)NonAf (>60 ml/min/1.73 sqM) Glucose (74-99) mg/dL Plasma Lactic Acid Esteban 0.9 (0.7-2.0) mmol/L Calcium (8.4-10.2) mg/dL Total Bilirubin (0.2-1.3) mg/dL AST (14-36) U/L ALT (4-34) U/L Alkaline Phosphatase (38-126) U/L Total Protein (6.3-8.2) g/dL Albumin (3.5-5.0) g/dL Amylase (30-110) U/L Lipase (23-300) U/L Urine Color Urine Appearance (Clear) Urine pH (5.0-8.0) Ur Specific [place] (1.001-1.035) Urine Protein (Negative) Urine Glucose (UA) (Negative) Urine Ketones (Negative) Urine Blood (Negative) Urine Nitrite (Negative) Urine Bilirubin (Negative) Urine Urobilinogen (<2.0) mg/dL Ur Leukocyte Esterase (Negative) Urine RBC (0-5) /hpf Urine WBC (0-5) /hpf Ur Squamous Epith Cells (0-4) /hpf Urine Bacteria (None) /hpf Urine Mucus (None) /hpf - EKG Data -: EKG Interpreted by Me EKG Comments: EKG taken at 15: 04 showing a sinus rhythm. No ST segment elevations or depressions. No T wave inversions. Ventricular rate 60, VT interval 164, QRS duration 101, QT/QTc 393/395. Disposition Clinical Impression: Abdominal pain Disposition: HOME SELF-CARE Condition: Stable Instructions (If sedation given, give patient instructions): Abdominal Pain ( ED) Additional Instructions: Follow-up with Dr. Dumont. Return to the ER for any new or worsening symptoms Is patient prescribed a controlled substance at d/c from ED?: No Referrals: Thelma Schwartz MD [Primary Care Provider] - 1-2 days Latricia Dumont MD [STAFF PHYSICIAN] - 1-2 days Time of Disposition: 17:57
[2024-04-29] MEDS: ONDANSETRON 4 MG/2 ML VIAL IVP STA (14:55)
[2024-04-29] MEDS: methylPREDNISolone SOD SUCCI 125 MG/2 ML VIAL IV STA (14:56)
[2024-04-29] MEDS: FAMOTIDINE 20 MG/2 ML VIAL IV STA (14:57)
[2024-04-29] MEDS: diphenhydrAMINE 50 MG/ML 1 ML VIAL IVP STA (14:58)
[2024-04-29] MEDS: HYDROmorphone 1 MG/ML 1 ML SYRINGE IVP STA ×2 (15:00→17:09)
[2024-04-29 15:19] LABS: Appearance,Urine Cloudy (Clear); Bacteria,Urine Rare /hpf; Bilirubin,Urine Negative (Negative); Blood,Urine Negative (Negative); Color,Urine Colorless; Glucose,Urine (UA) Negative (Negative); Ketones,Urine Negative (Negative); Leukocyte Esterase,Urine Large (Negative); Mucus,Urine Rare /hpf; Nitrite,Urine Negative (Negative); PH, Urine 5.5 (5.0-8.0); Protein,Urine Negative (Negative); RBC,Urine 1 /hpf (0-5); Specific Gravity,Urine 1.015 (1.001-1.035); Squamous Epithelial Cell,Urine 6 /hpf (0-4); Urobilinogen,Urine <2.0 mg/dL (<2.0); WBC,Urine 8 /hpf (0-5)
[2024-04-29 16:11] LABS: ALT 20 U/L (4-34); AST 28 U/L (14-36); African American GFR (CKD) >90 (>60 ml/min/1.73 sqM); Albumin 4.4 g/dL (3.5-5.0); Alkaline Phosphatase 122 U/L (38-126); Amylase 69 U/L (30-110); Anion Gap 7 mmol/L; Blood Urea Nitrogen 17 mg/dL (7-17); Carbon Dioxide 26 mmol/L (22-30); Chloride 105 mmol/L (98-107); Glucose 105 mg/dL (74-99); Lipase 110 U/L (23-300); Non-African American GFR(CKD) >90 (>60 ml/min/1.73 sqM); Potassium 4.5 mmol/L (3.5-5.1); Sodium 138 mmol/L (137-145); Total Bilirubin 0.6 mg/dL (0.2-1.3); Total Protein 7.1 g/dL (6.3-8.2)
[2024-04-29 16:31] LABS: Basophils % (A) 1 %; Eosinophils # (A) 0.1 k/uL (0-0.7); Eosinophils % (A) 2 %; HCT 36.9 % (34.0-46.0); HGB 11.8 gm/dL (11.4-16.0); Lymphocytes # (A) 1.4 k/uL (1.0-4.8); Lymphocytes % (A) 27 %; MCH 28.7 pg (25.0-35.0); MCV 89.7 fL (80.0-100.0); Mean Platelet Volume 8.9; Monocytes # (A) 0.3 k/uL (0-1.0); Monocytes % (A) 7 %; Neutrophils # (A) 3.3 k/uL (1.3-7.7); Neutrophils % (A) 63 %; Platelet Count 182 k/uL (150-450); RBC 4.11 m/uL (3.80-5.40); RDW 13.9 % (11.5-15.5); WBC 5.3 k/uL (3.8-10.6)
--- NOTE | 2024-04-29 16:42 | CT ---
EXAMINATION TYPE: CT abdomen pelvis w con CT DLP: 1973.6 mGycm, Automated exposure control for dose reduction was used. DATE OF EXAM: 04/29/2024 4:34 PM COMPARISON: Multiple CT abdomen pelvis with most recent 12/23/2023 CLINICAL INDICATION:Female, 53 years old with history of abd pain hx bypass; abd pain hx bypass TECHNIQUE: Standard CT of the abdomen and pelvis following the administration of 70 cc of Isovue 30 0 IV contrast material. Coronal and sagittal reformats were performed. FINDINGS: LOWER CHEST: No significant findings. ABDOMEN LIVER: Unremarkable GALLBLADDER AND BILE DUCTS: The gallbladder is surgically absent. No biliary ductal dilatation. PANCREAS: Unremarkable. SPLEEN: Unremarkable. ADRENAL GLANDS: Unremarkable. KIDNEYS AND URETERS: No evidence of hydronephrosis or renal calculus. The kidneys enhance symmetrical ly. Few bilateral renal cortical subcentimeter cysts. Contrast is demonstrated within both collecting systems on the delayed phase. PELVIS BLADDER: Unremarkable REPRODUCTIVE: Unremarkable. ABDOMEN & PELVIS STOMACH AND BOWEL: Postsurgical changes from Barb-en-Y gastric bypass.Suspected postsurgical changes from appendectomy. No focal bowel wall thickening or surrounding inflammatory changes. No evidence of bowel obstruction. PERITONEUM: No evidence of pneumoperitoneum or free fluid. VASCULATURE: Moderate atherosclerotic calcifications are present throughout the abdominal aorta and i ts branches. No evidence of aortic aneurysm. MUSCULOSKELETAL: No acute osseous abnormalities. Multilevel anterior osteophytosis of the visualized lower thoracic spine. LYMPH NODES: No gross evidence for lymphadenopathy. SOFT TISSUE/ABDOMINAL WALL: Unremarkable IMPRESSION: 1. No CT evidence for acute abdominal/pelvic process. 2. Postsurgical changes of the bowel redemonstrated. [facility], , 04/29/2024 4:39 PM
[2024-04-29] MEDS: METOCLOPRAMIDE 5 MG/ML 2 ML VIAL IVP STA (17:09)
[2024-04-29] MEDS: ONDANSETRON 4 MG ODT STARTER PACK 2 TAB BTL PO STA (18:09)
[2024-04-29 18:17] VITALS: BP 132/78; PULSE 60; RESP 18; TEMP 98.1
== END 2024-04-29 18:16 | disposition home or self-care (01) ==
LOC: EC 13:59
DX: R10.12 Left upper quadrant pain (principal); Z87.891 Personal history of nicotine dependence
CPT/HCPCS: 36415; 93005; 80053; 82150; 83605; 83690; 85025; 81001; 74177; 99284; 96374; 96375; 96376; 96361; J1200; J2765; J2405; J3490; J1171; S0119; Q9967; J2919

== ENCOUNTER 2024-05-06 15:37 | Observation (INO) | payer MEDICARE ==
[2024-05-06] MEDS: LACTATED RINGERS 1,000 ML IV ONE (16:14)
[2024-05-06] MEDS: LACTATED RINGERS 1,000 ML IV SCH (16:15)
--- NOTE | 2024-05-06 16:49 | ED ---
Abdominal Pain HPI - General Chief Complaint: Abdominal Pain Stated Complaint: abdominal pain Time Seen by Provider: 05/06/24 15:40 Source: patient Mode of arrival: ambulatory Limitations: no limitations - History of Present Illness Initial Comments: 53-year-old female presents to the emergency department under the direction of Dr. Dumont. Patient has a history of bariatric surgery 11 years ago. She is coming in for left upper quadrant abdominal pain. She was seen in the emergency department on the for similar complaint and had a CT performed. Patient did have some relief of her abdominal pain with pain medications however this was short-lived. States that she continues to have left upper abdominal cramping which is similar in nature to her previous bowel obstructions. She has been trying to eat however her intake has been minimal. She has not been passing any gas. States her last bowel movement was 5 days ago. Patient feels distended. She tells Dr. Dumont in office today and Dr. Dumont recommended that she come to the emergency department for evaluation. Patient grades her pain currently as a 9 out of 10. She denies any numbness, tingling or weakness in her extremities. No chest pain or difficulty breathing. No other alleviating, precipitating or or modifying factors - Related Data Home Medications Medication Instructions Recorded Confirmed Cyclobenzaprine [Flexeril] 10 mg PO HS 08/05/16 05/08/24 Metoprolol Succinate [Toprol XL] 50 mg PO HS 01/22/18 05/08/24 Nitroglycerin Sl Tabs [Nitrostat] 0.4 mg PO Q5M PRN 01/22/18 05/08/24 rOPINIRole HCL [Requip] 1 mg PO HS 03/21/18 05/08/24 Amitriptyline HCl [Elavil] 75 mg PO HS PRN 06/16/21 05/08/24 Rizatriptan Benzoate [Rizatriptan] 10 mg PO BID PRN 06/16/21 05/08/24 Topiramate [Topamax] 100 mg PO HS 06/16/21 05/08/24 Atorvastatin [Lipitor] 40 mg PO HS 12/23/23 05/08/24 Clopidogrel [Plavix] 75 mg PO DAILY 12/23/23 05/08/24 Cyclobenzaprine [Flexeril] 10 mg PO DAILY PRN 12/23/23 05/08/24 Pregabalin [Lyrica] 150 mg PO BID 12/23/23 05/08/24 rOPINIRole HCL [Requip] 1 mg PO DAILY PRN 12/23/23 05/08/24 Previous Rx's Medication Instructions Recorded Lactulose [Cephulac] 30 ml PO BID PRN #500 ml 05/08/24 Scopolamine 1 mg/72 Hr Patch 1 patch TRANSDERM Q72H #4 patch 05/08/24 [TransDerm Scop] Allergies Allergy/AdvReac Type Severity Reaction Status Date / Time Sulfa (Sulfonamide Allergy Severe Anaphylaxis Verified 05/08/24 12:57 Antibiotics) adhesive tape Allergy BLISTERS Verified 05/08/24 12:57 amoxicillin [From Augmentin] Allergy Rash/Hives Verified 05/08/24 12:57 clavulanic acid Allergy Rash/Hives Verified 05/08/24 12:57 [From Augmentin] Iodinated Contrast Media Allergy Itching Verified 05/08/24 12:57 [Iodinated Contrast- Oral and IV Dye] Penicillins Allergy Rash/Hives/Itching/Gi Verified 05/08/24 12:57 Upset adhesive AdvReac Itching Verified 05/08/24 12:57 Review of Systems ROS Statement: Those systems with pertinent positive or pertinent negative responses have been documented in the HPI. ROS Other: All systems not noted in ROS Statement are negative. Past Medical History Past Medical History: Asthma, Blood Disorder, Chest Pain / Angina, COPD, Diabetes Mellitus, Fibromyalgia, GERD/Reflux, Hearing Disorder / Deafness, Hyperlipidemia, Hypertension, Liver Disease, Mitral Valve Prolapse (MVP), Musculoskeletal Disorder, Osteoarthritis (OA), Pneumonia, Respiratory Disorder, Sleep Apnea/CPAP/BIPAP Additional Past Medical History / Comment(s): MIGRAINES, DEGENERATIVE DISC DISEASE, FATTY LIVER, LEIDEN FACTOR 5, OCCASIONAL SWELLING IN LOWER EXT.NEUROPATHY, RLS, diabetes is in remission since surgery, chronic back pain, PATIENT HAS BEEN OFF MEDS FOR DIABETES SINCE BARIATRIC SURGERY History of Any Multi-Drug Resistant Organisms: None Reported, ESBL Date of last positivie culture/infection: 09/15/18 MDRO Source:: ESBL URINE Past Surgical History: Adenoidectomy, Appendectomy, Bariatric Surgery, Bowel Resection, Breast Surgery, Section, Cholecystectomy, Ear Surgery, Heart Catheterization, Hernia Repair, Orthopedic Surgery, Tonsillectomy Additional Past Surgical History / Comment(s): ARTHROSCOPY RT KNEE X3, RT BREAST BX-NEG, (13) MYRINGOTOMYS. laparoscopic danielle-en-y with lysis of adhesions 2014; Surgical wound debridement x3 ; SX TO REMOVED SCAR TISSUE FROM PREVIOUS ABD SX;EGD ; LAP EXAM- APPY SMALL BOWEL OBSTRUCTION LYSIS OF ADHESIONS, 3 hernia repairs, 3 bowel resection, 07/2016 colon resection, adhesions removed 03/2018, part of colon and bowel removed 08/09 Past Anesthesia/Blood Transfusion Reactions: No Reported Reaction Additional Past Anesthesia/Blood Transfusion Reaction / Comment(s): SEVERE HEADACHE AFTER LAST SCOPE, clausterphobia Past Psychological History: Anxiety, Bipolar, Depression, PTSD Smoking Status: Former smoker Past Alcohol Use History: Occasional Past Drug Use History: None Reported - Past Family History Mother Family Medical History: Deep Vein Thrombosis (DVT), Hypertension, Pulmonary Embolus, Thyroid Disorder Additional Family Medical History / Comment(s): FACTOR 5 LEIDEN, MVP Father Family Medical History: Diabetes Mellitus, Hypertension, Myocardial Infarction ([place]) Additional Family Medical History / Comment(s): AGE 59 [place] General Exam Limitations: no limitations General appearance: alert, in no apparent distress Head exam: Present: atraumatic, normocephalic, normal inspection Eye exam: Present: normal appearance, PERRL, EOMI. Absent: scleral icterus, conjunctival injection, periorbital swelling ENT exam: Present: normal exam, mucous membranes moist Neck exam: Present: normal inspection. Absent: tenderness, meningismus, lymphadenopathy Respiratory exam: Present: normal lung sounds bilaterally. Absent: respiratory distress, wheezes, rales, rhonchi, stridor Cardiovascular Exam: Present: regular rate, normal rhythm, normal heart sounds. Absent: systolic murmur, diastolic murmur, rubs, gallop, clicks GI/Abdominal exam: Present: soft, tenderness (Left upper quadrant), normal bowel sounds. Absent: distended, guarding, rebound, rigid Extremities exam: Present: normal inspection, full ROM, normal capillary refill. Absent: tenderness, pedal edema, joint swelling, calf tenderness Back exam: Present: normal inspection Neurological exam: Present: alert, oriented X3, CN II-XII intact Psychiatric exam: Present: normal affect, normal mood Skin exam: Present: warm, dry, intact, normal color. Absent: rash Course Vital Signs 05/06/24 05/06/24 15:41 18:18 Temperature 98.2 F Pulse Rate 89 72 Respiratory 18 18 Rate Blood Pressure 183/70 147/70 O2 Sat by Pulse 97 95 Oximetry Medical Decision Making - Medical Decision Making Was pt. sent in by a medical professional or institution (, PA, EQUIPMENT INSPECTOR, urgent care, hospital, or skilled nursing...) When possible be specific @ -Dr. Dumont sent the patient into the hospital Did you speak to anyone other than the patient for history (EMS, parent, family, police, friend...)? What history was obtained from this source @ -Spoke with Dr. Dumont for the history Did you review nursing and triage notes (agree or disagree)? Why? @ -I reviewed and agree with nursing and triage notes Were old charts reviewed (outside hosp., previous admission, EMS record, old EKG, old radiological studies, urgent care reports/EKG's, skilled nursing records)? Report findings @ -I reviewed the ER visit with the CT that was performed on the Differential Diagnosis (chest pain, altered mental status, abdominal pain women, abdominal pain men, vaginal bleeding, weakness, fever, dyspnea, syncope, headache, dizziness, GI bleed, back pain, seizure, CVA, palpatations, mental health, musculoskeletal)? @ -Differential Abdominal Pain Women: Appendicitis, Cholecystitis, diverticulosis, ischemic bowel, pancreatitis, hepatitis, UTI, gastroenteritis, AAA, incarcerated hernia, bowel obstruction, constipation, inflammatory bowel, hepatitis, peptic ulcer disease, splenic infarction, perforated viscus, vulvitis, ovarian torsion, PID, kidney stone, placenta abruption, this is not meant to be an all-inclusive list EKG interpreted by me (3pts min.). @ -Not done X-rays interpreted by me (1pt min.). @ -yes which demonstrates no acute process CT interpreted by me (1pt min.). @ -None done U/S interpreted by me (1pt. min.). @ -None done What testing was considered but not performed or refused? (CT, X-rays, U/S, labs)? Why? @ -None What meds were considered but not given or refused? Why? @ -None Did you discuss the management of the patient with other professionals (professionals i.e. , PA, EQUIPMENT INSPECTOR, lab, RT, psych nurse, social insurance analyst, farmworker dairy, teacher, resident medical officer, human services case manager)? Give summary @ -Spoke with Dr. Dumont who wanted the patient admitted Was smoking cessation discussed for >3mins.? @ -No Was critical care preformed (if so, how long)? @ -No Were there social determinants of health that impacted care today? How? (Homelessness, low income, unemployed, alcoholism, drug addiction, transportation, low edu. Level, literacy, decrease access to med. care, skilled nursing, rehab)? @ -No Was there de-escalation of care discussed even if they declined (Discuss DNR or withdrawal of care, Hospice)? DNR status @ -No What co-morbidities impacted this encounter? (DM, HTN, Smoking, COPD, CAD, C ancer, CVA, ARF, Chemo, Hep., AIDS, mental health diagnosis, sleep apnea, morbid obesity)? @ -Status post gastric bypass Was patient admitted / discharged? Hospital course, mention meds given and rou te, prescriptions, significant lab abnormalities, going to OR and other pertinent info. @ -Upon arrival patient seen and evaluated in room 18. Thorough history and physical exam was performed. IV access was established. Patient is administered IV fluids. Laboratory studies are conducted. She was given 1 mg of Dilaudid for pain control and 4 mg of Zofran for nausea. Patient will be admitted to Dr. Dumont for further evaluation Undiagnosed new problem with uncertain prognosis? @ -No Drug Therapy requiring intensive monitoring for toxicity (Heparin, Nitro, Insulin, Cardizem)? @ -No Were any procedures done? @ -No Diagnosis/symptom? @ -Acute abdominal pain, acute nausea vomiting, history of gastric bypass Acute, or Chronic, or Acute on Chronic? @ -Acute on chronic Uncomplicated (without systemic symptoms) or Complicated (systemic symptoms)? @ -Complicated Side effects of treatment? @ -No Exacerbation, Progression, or Severe Exacerbation? @ -Yes Poses a threat to life or bodily function? How? (Chest pain, [place], [place], pneumonia, PE, COPD, DKA, ARF, appy, cholecystitis, CVA, Diverticulitis, Homicidal, Suicidal, threat to staff... and all critical care pts) @ -No - Lab Data Result diagrams: 05/07/24 05:51 05/08/24 04:22 Lab Results 05/06/24 05/06/24 05/06/24 Range/Units 17:31 17:31 17:31 WBC 7.8 (3.8-10.6) k/uL RBC 4.02 (3.80-5.40) m/uL Hgb 11.9 (11.4-16.0) gm/dL Hct 34.9 (34.0-46.0) % MCV 87.0 (80.0-100.0) fL MCH 29.7 (25.0-35.0) pg MCHC 34.2 (31.0-37.0) g/dL RDW 13.8 (11.5-15.5) % Plt Count 256 (150-450) k/uL MPV 7.5 Neutrophils % 67 % Lymphocytes % 25 % Monocytes % 4 % Eosinophils % 2 % Basophils % 1 % Neutrophils # 5.2 (1.3-7.7) k/uL Lymphocytes # 1.9 (1.0-4.8) k/uL Monocytes # 0.3 (0-1.0) k/uL Eosinophils # 0.1 (0-0.7) k/uL Basophils # 0.0 (0-0.2) k/uL Sodium 135 L (137-145) mmol/L Potassium 5.1 (3.5-5.1) mmol/L Chloride 103 (98-107) mmol/L Carbon Dioxide 30 (22-30) mmol/L Anion Gap 2 mmol/L BUN 16 (7-17) mg/dL Creatinine 0.59 (0.52-1.04) mg/dL Est GFR (CKD-EPI)AfAm >90 (>60 ml/min/1.73 sqM) Est GFR (CKD-EPI)NonAf >90 (>60 ml/min/1.73 sqM) BUN/Creatinine Ratio Cancelled Glucose 118 H (74-99) mg/dL Plasma Lactic Acid Esteban 0.7 (0.7-2.0) mmol/L Calcium 8.9 (8.4-10.2) mg/dL Total Bilirubin 0.8 (0.2-1.3) mg/dL AST 34 (14-36) U/L ALT 20 (4-34) U/L Alkaline Phosphatase 124 (38-126) U/L Total Protein 6.6 (6.3-8.2) g/dL Albumin 4.0 (3.5-5.0) g/dL Globulin Cancelled Albumin/Globulin Ratio Cancelled Lipase 66 (23-300) U/L Disposition Clinical Impression: Abdominal pain, Partial bowel obstruction Disposition: ADMITTED IP TO THIS [facility] Condition: Stable Is patient prescribed a controlled substance at d/c from ED?: No Time of Disposition: 17:38 Decision to Admit Reason: Admit from EC Decision Date: 05/06/24 Decision Time: 17:38
[2024-05-06] MEDS: ONDANSETRON 4 MG/2 ML VIAL IVP STA (17:02)
[2024-05-06] MEDS: HYDROmorphone 1 MG/ML 1 ML SYRINGE IVP STA (17:03)
[2024-05-06] MEDS ORDERED: NALOXONE 0.4 MG/ML 1 ML VIAL IV PRN (17:40)
[2024-05-06 17:43] LABS: Basophils % (A) 1 %; Eosinophils # (A) 0.1 k/uL (0-0.7); Eosinophils % (A) 2 %; HCT 34.9 % (34.0-46.0); HGB 11.9 gm/dL (11.4-16.0); Lymphocytes # (A) 1.9 k/uL (1.0-4.8); Lymphocytes % (A) 25 %; MCH 29.7 pg (25.0-35.0); MCHC 34.2 g/dL (31.0-37.0); Mean Platelet Volume 7.5; Monocytes # (A) 0.3 k/uL (0-1.0); Monocytes % (A) 4 %; Neutrophils # (A) 5.2 k/uL (1.3-7.7); Neutrophils % (A) 67 %; Platelet Count 256 k/uL (150-450); RBC 4.02 m/uL (3.80-5.40); RDW 13.8 % (11.5-15.5); WBC 7.8 k/uL (3.8-10.6)
[2024-05-06 17:52] LABS: ALT 20 U/L (4-34); AST 34 U/L (14-36); African American GFR (CKD) >90 (>60 ml/min/1.73 sqM); Alkaline Phosphatase 124 U/L (38-126); Anion Gap 2 mmol/L; Blood Urea Nitrogen 16 mg/dL (7-17); Calcium 8.9 mg/dL (8.4-10.2); Carbon Dioxide 30 mmol/L (22-30); Chloride 103 mmol/L (98-107); Glucose 118 mg/dL (74-99); Lipase 66 U/L (23-300); Non-African American GFR(CKD) >90 (>60 ml/min/1.73 sqM); Potassium 5.1 mmol/L (3.5-5.1); Sodium 135 mmol/L (137-145); Total Bilirubin 0.8 mg/dL (0.2-1.3); Total Protein 6.6 g/dL (6.3-8.2)
[2024-05-06] MEDS: SODIUM CHLORIDE 0.9% 1,000 ML IV SCH (18:11)
[2024-05-06 18:21] LABS: Appearance,Urine Cloudy (Clear); Bacteria,Urine Rare /hpf; Bilirubin,Urine Negative (Negative); Blood,Urine Negative (Negative); Color,Urine Colorless; Glucose,Urine (UA) Negative (Negative); Ketones,Urine Negative (Negative); Leukocyte Esterase,Urine Moderate (Negative); Mucus,Urine Rare /hpf; Nitrite,Urine Negative (Negative); Protein,Urine Negative (Negative); RBC,Urine 2 /hpf (0-5); Specific Gravity,Urine 1.013 (1.001-1.035); Squamous Epithelial Cell,Urine 17 /hpf (0-4); Urobilinogen,Urine <2.0 mg/dL (<2.0); WBC,Urine 12 /hpf (0-5)
--- NOTE | 2024-05-06 19:12 | XR ---
EXAMINATION TYPE: XR KUB DATE OF EXAM: 05/06/2024 7:09 PM COMPARISON: Abdominal radiograph 08/10/2021. CLINICAL INDICATION: Female, 53 years old with history of abd pain; PHH, pain TECHNIQUE: One radiographic view of the abdomen was obtained. FINDINGS: The bowel gas pattern is nonspecific without dilated loops of small or large bowel. . Fecal material and gas are demonstrated throughout the colon and rectum. There is no evidence for organomegaly or pneumoperitoneum. The osseous structures are intact. No ab normal calcifications are present. Previous cholecystectomy. IMPRESSION: Nonspecific bowel gas pattern without radiographic evidence for acute process. [facility], , 05/06/2024 7:10 PM
[2024-05-06] MEDS ORDERED: CYCLOBENZAPRINE 10 MG TAB PO PRN (21:26)
[2024-05-06] MEDS ORDERED: SUMAtriptan succinate 50 MG TAB PO PRN (21:26)
[2024-05-06] MEDS ORDERED: AMITRIPTYLINE HCL 25 MG TAB PO PRN (21:26)
[2024-05-06] MEDS: CYCLOBENZAPRINE 10 MG TAB PO SCH (23:09)
[2024-05-06] MEDS: METOPROLOL SUCCINATE (ER) 50 MG TAB.ER.24H PO SCH (23:09)
[2024-05-06] MEDS: TOPIRAMATE 100 MG TAB PO SCH (23:09)
[2024-05-06] MEDS: HYDROmorphone 1 MG/ML 1 ML SYRINGE IVP PRN (23:19)
[2024-05-06] MEDS: ONDANSETRON 4 MG/2 ML VIAL IVP PRN (23:20)
[2024-05-07] MEDS: PREGABALIN 75 MG CAP PO SCH (00:44)
--- NOTE | 2024-05-07 07:47 | P.GSHP ---
History of Present Illness H&P Date: 05/06/24 CHIEF COMPLAINT: Abdominal pain HISTORY OF PRESENT ILLNESS: The patient is a 53-year-old female with a complicated surgical history including gastric bypass including multiple abdominal surgeries. She comes in with 2-week history of worsening left-sided including left upper quadrant abdominal pain with intractable nausea and vomiting. She is unable to take oral intake for over 5 days. She reports no passage of flatus in the last 3 to 5 days. Patient presented to the emergency room [address] scan obtained. Findings demonstrate moderate stool retention. Patient reports today she is not able to pass flatus. She has not had a bowel movement in 5 days. Patient admitted for abdominal pain and intractable including large bowel obstruction. PAST MEDICAL HISTORY: 1. Morbid obesity due to excess calories, BMI initial 60.7 2. Obstructive sleep apnea. 3. Asthma. 4. Osteoarthritis. 5. Depressive disorder 6. Fibromyalgia. 7. Gastroesophageal reflux disease. 8. Diabetes type 2 mellitus 9. Hypertensive heart disease 10. Dyslipidemia. 11. Bilateral lower extremity edema. 12. Polycystic ovarian syndrome. 13. Restless leg syndrome. 14. History of MRSA 15. Cardiomyopathy. 16. Anxiety. 17. Neuropathy 18. Chronic sinusitis. 19. Panniculitis. 20. Factor V Leiden 21. Migraine 22. Obstructive sleep apnea 23. Fatty liver disease 24. Mitral valve prolapse 25. Angina 26. Chronic obstructive pulmonary disease 27. Claustrophobia 28. Posttraumatic stress disorder 29. Iron deficiency anemia PAST SURGICAL HISTORY: 1. with complication of wound infection. 2. D&C. 3. Right breast biopsy. 4. Multiple myringotomy tubes. 5. Tonsillectomy. 6. Adenoidectomy. 7. Heart catheterization. 8. Laparoscopic cholecystectomy. 9. Upper endoscopy. 10. Multiple right knee arthroscopies. 11. Right knee surgery. 12. Gastric bypass, 2013. 13. 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 14. Multiple diagnostic laparoscopies with extensive lysis of adhesions, 2014. 15. Diagnostic laparoscopy with revision of gastrojejunostomy for intussusception, 2014. 16. Appendectomy 17. Cholecystectomy 18. Colectomy for sigmoid volvulus MEDICATIONS: Please see and reviewed ALLERGIES: Please see and review SOCIAL HISTORY: No active tobacco use. FAMILY HISTORY: Pertinent for bladder, breast, colon cancer and lymphoma, prostate cancer, stomach cancer, morbid obesity as well as factor V Leiden disease. REVIEW OF SYSTEMS: CONSTITUTIONAL: Her highest weight for a 5-foot, 0-inch frame was 310 pounds. [place] body weight is 127 pounds. Body mass index was 60.7. ENDOCRINE: No reports of checking her blood sugar glucose for prior history of insulin-dependent diabetes. MUSCULOSKELETAL: Has chronic and diffuse joint pain, including chronic pain syndrome. Has chronic lower back pain. NEURO: History of chronic pain syndrome. No stroke or seizure disorder. Has neuropathy. GASTROINTESTINAL: History of change in bowel habits due to volvulus, colectomy. SKIN: Recurrent panniculitis, including ulcerations and tenderness from her pannus. She takes nystatin powder for control of her symptoms. CARDIOVASCULAR: History of angina. History of chest pain with multiple heart catheterizations. Has hypertensive heart disease. Has dyslipidemia. RESPIRATORY: History of asthma, bronchitis including obstructive sleep apnea. GENITOURINARY: History of irregular masses. PSYCH: History of depression, including anxiety and mental illness. HEMATOLOGIC: History of factor V Leiden carrier. PHYSICAL EXAM: VITAL SIGNS: Reviewed. ABDOMEN: Protuberant, tender epigastric and the left upper left lower quadrant. GENERAL: Well-developed, pleasant female in no acute distress. HEENT: Extraocular movements are grossly intact. No sclerae icterus. MUSCULOSKELETAL: No clubbing, cyanosis, or edema. CHEST: Nonlabored respirations with equal bilateral excursions. CARDIOVASCULAR: Regular rate and rhythm. NEURO: No focal or lateralizing signs. Cranial nerves II-12 grossly intact. PSYCH: Appropriate affect. Alert and order person place and time. SKIN: Good skin. Well perfused. STUDIES: Abdominal x-ray independently reviewed demonstrate moderate stool burden involving the rectum sigmoid colon moderate air of the left upper quadrant. CT of the abdomen pelvis independently reviewed from 1 week ago demonstrates moderate stool burden including redundancy involving the hepatic flexure, transverse colon, splenic flexure. Moderate gaseous distention identified of the left side of the abdomen. This is my independent interpretation. ASSESSMENT: 1. Intractable nausea and vomiting due to large bowel obstruction 2. Intractable epigastric left upper quadrant abdominal pain 3. History of gastric bypass for obesity 4. Diarrhea with change in bowel 5. History of bowel obstructions 6. Fibromyalgia. 7. Gastroesophageal reflux disease. 8. Diabetes type 2 mellitus 9. Hypertensive heart disease 10. Dyslipidemia. 11. Bilateral lower extremity edema. 12. Polycystic ovarian syndrome. 13. Restless leg syndrome. 14. History of MRSA 15. Cardiomyopathy. 16. Anxiety. 17. Neuropathy 18. Chronic sinusitis. 19. Panniculitis. 20. Factor V Leiden 21. Migraine 22. Obstructive sleep apnea 23. Fatty liver disease 24. Mitral valve prolapse 25. Angina 26. Chronic obstructive pulmonary disease 27. Claustrophobia 28. Posttraumatic stress disorder 29. Iron deficiency anemia 30. Depressive disorder 31. Morbid obesity due to excess calories, BMI initial 60.7 to 48.8 32. Obstructive sleep apnea. 33. Asthma. 34. Osteoarthritis. 35. Dehydration PLAN: 1. Recommend IV fluid hydration 2 to 4 L to address dehydration and nausea 2. Milk of molasses enema to address moderate stool burden involving the rectum and sigmoid colon 3. Lactulose 30 mg 3 times daily including mL combination twice daily to allow for fecal clearance 4. May need diagnostic laparoscopy after fecal clearance 5. Admission due to intractable nausea vomiting, dehydration and intractable abdominal pain Past Medical History Past Medical History: Asthma, Blood Disorder, Chest Pain / Angina, COPD, Diabetes Mellitus, Fibromyalgia, GERD/Reflux, Hearing Disorder / Deafness, Hyperlipidemia, Hypertension, Liver Disease, Mitral Valve Prolapse (MVP), Musculoskeletal Disorder, Osteoarthritis (OA), Pneumonia, Respiratory Disorder, Sleep Apnea/CPAP/BIPAP Additional Past Medical History / Comment(s): MIGRAINES, DEGENERATIVE DISC DISEASE, FATTY LIVER, LEIDEN FACTOR 5, OCCASIONAL SWELLING IN LOWER EXT.NEUROPATHY, RLS, diabetes is in remission since surgery, chronic back pain, PATIENT HAS BEEN OFF MEDS FOR DIABETES SINCE BARIATRIC SURGERY History of Any Multi-Drug Resistant Organisms: None Reported, ESBL Date of last positivie culture/infection: 09/15/18 MDRO Source:: ESBL URINE Past Surgical History: Adenoidectomy, Appendectomy, Bariatric Surgery, Bowel Resection, Breast Surgery, Section, Cholecystectomy, Ear Surgery, Heart Catheterization, Hernia Repair, Orthopedic Surgery, Tonsillectomy Additional Past Surgical History / Comment(s): ARTHROSCOPY RT KNEE X3, RT BREAST BX-NEG, (13) MYRINGOTOMYS. laparoscopic danielle-en-y with lysis of adhesions 2013; Surgical wound debridement x3 ; SX TO REMOVED SCAR TISSUE FROM PREVIOUS ABD SX;EGD ; LAP EXAM- APPY SMALL BOWEL OBSTRUCTION LYSIS OF ADHESIONS, 3 hernia repairs, 3 bowel resection, 07/2016 colon resection, adhesions removed 03/2018, part of colon and bowel removed 08/09 Past Anesthesia/Blood Transfusion Reactions: No Reported Reaction Additional Past Anesthesia/Blood Transfusion Reaction / Comment(s): SEVERE HEADACHE AFTER LAST SCOPE, clausterphobia Past Psychological History: Anxiety, Bipolar, Depression, PTSD Smoking Status: Former smoker Past Alcohol Use History: Occasional Past Drug Use History: None Reported - Past Family History Mother Family Medical History: Deep Vein Thrombosis (DVT), Hypertension, Pulmonary Embolus, Thyroid Disorder Additional Family Medical History / Comment(s): FACTOR 5 LEIDEN, MVP Father Family Medical History: Diabetes Mellitus, Hypertension, Myocardial Infarction (OR) Additional Family Medical History / Comment(s): AGE 59 OR Medications and Allergies Home Medications Medication Instructions Recorded Confirmed Type RX: Cyclobenzaprine [Flexeril] 10 mg PO HS 08/05/16 05/06/24 History RX: Metoprolol Succinate [Toprol 50 mg PO HS 01/22/18 05/06/24 History XL] RX: Nitroglycerin Sl Tabs 0.4 mg PO Q5M PRN 01/22/18 05/06/24 History [Nitrostat] RX: rOPINIRole HCL [Requip] 1 mg PO HS 03/21/18 05/06/24 History RX: Amitriptyline HCl [Elavil] 75 mg PO HS PRN 06/16/21 05/06/24 History RX: Rizatriptan Benzoate 10 mg PO BID PRN 06/16/21 05/06/24 History [Rizatriptan] RX: Topiramate [Topamax] 100 mg PO HS 06/16/21 05/06/24 History RX: Atorvastatin [Lipitor] 40 mg PO HS 12/23/23 05/06/24 History RX: Clopidogrel [Plavix] 75 mg PO DAILY 12/23/23 05/06/24 History RX: Cyclobenzaprine [Flexeril] 10 mg PO DAILY PRN 12/23/23 05/06/24 History RX: Pregabalin [Lyrica] 150 mg PO BID 12/23/23 05/06/24 History RX: rOPINIRole HCL [Requip] 1 mg PO DAILY PRN 12/23/23 05/06/24 History Allergies Allergy/AdvReac Type Severity Reaction Status Date / Time Sulfa (Sulfonamide Allergy Severe Anaphylaxis Verified 05/06/24 18:22 Antibiotics) adhesive tape Allergy BLISTERS Verified 05/06/24 18:22 amoxicillin [From Augmentin] Allergy Rash/Hives Verified 05/06/24 18:22 clavulanic acid Allergy Rash/Hives Verified 05/06/24 18:22 [From Augmentin] Iodinated Contrast Media Allergy Itching Verified 05/06/24 18:22 [Iodinated Contrast- Oral and IV Dye] Penicillins Allergy Rash/Hives/Itching/Gi Verified 05/06/24 18:22 Upset adhesive AdvReac Itching Verified 05/06/24 18:22 Surgical - Exam Vital Signs Temp Pulse Resp BP Pulse Ox 98.2 F 89 18 183/70 97 05/06/24 15:41 05/06/24 15:41 05/06/24 15:41 05/06/24 15:41 05/06/24 15:41 Results - Labs 05/06/24 17:31 05/07/24 05:51 Abnormal Lab Results - Last 24 Hours (Table) 05/06/24 05/06/24 Range/Units 17:31 18:05 Sodium 135 L (137-145) mmol/L Glucose 118 H (74-99) mg/dL Urine Appearance Cloudy H (Clear) Ur Leukocyte Esterase Moderate H (Negative) Urine WBC 12 H (0-5) /hpf Ur Squamous Epith Cells 17 H (0-4) /hpf Urine Bacteria Rare H (None) /hpf Urine Mucus Rare H (None) /hpf Diabetes panel 05/06/24 Range/Units 17:31 Sodium 135 L (137-145) mmol/L Potassium 5.1 (3.5-5.1) mmol/L Chloride 103 (98-107) mmol/L Carbon Dioxide 30 (22-30) mmol/L BUN 16 (7-17) mg/dL Creatinine 0.59 (0.52-1.04) mg/dL Glucose 118 H (74-99) mg/dL Calcium 8.9 (8.4-10.2) mg/dL AST 34 (14-36) U/L ALT 20 (4-34) U/L Alkaline Phosphatase 124 (38-126) U/L Total Protein 6.6 (6.3-8.2) g/dL Albumin 4.0 (3.5-5.0) g/dL Calcium panel 05/06/24 Range/Units 17:31 Calcium 8.9 (8.4-10.2) mg/dL Albumin 4.0 (3.5-5.0) g/dL Pituitary panel 05/06/24 Range/Units 17:31 Sodium 135 L (137-145) mmol/L Potassium 5.1 (3.5-5.1) mmol/L Chloride 103 (98-107) mmol/L Carbon Dioxide 30 (22-30) mmol/L BUN 16 (7-17) mg/dL Creatinine 0.59 (0.52-1.04) mg/dL Glucose 118 H (74-99) mg/dL Calcium 8.9 (8.4-10.2) mg/dL Adrenal panel 05/06/24 Range/Units 17:31 Sodium 135 L (137-145) mmol/L Potassium 5.1 (3.5-5.1) mmol/L Chloride 103 (98-107) mmol/L Carbon Dioxide 30 (22-30) mmol/L BUN 16 (7-17) mg/dL Creatinine 0.59 (0.52-1.04) mg/dL Glucose 118 H (74-99) mg/dL Calcium 8.9 (8.4-10.2) mg/dL Total Bilirubin 0.8 (0.2-1.3) mg/dL AST 34 (14-36) U/L ALT 20 (4-34) U/L Alkaline Phosphatase 124 (38-126) U/L Total Protein 6.6 (6.3-8.2) g/dL Albumin 4.0 (3.5-5.0) g/dL
[2024-05-07 08:34] LABS: BUN/Creat Ratio 18.71 Ratio (12.00-20.00); Blood Urea Nitrogen 13.1 mg/dL (9.0-27.0); Calcium 9.2 mg/dL (8.7-10.3); Carbon Dioxide 29.4 mmol/L (21.6-31.8); Chloride 103 mmol/L (96-109); Glucose 127 mg/dL (70-110); Potassium 4.6 mmol/L (3.5-5.5); Sodium 141 mmol/L (135-145)
[2024-05-07 08:55] LABS: Basophils # (A) 0.07 X 10*3/uL (0.00-0.10); Eosinophils # (A) 0.11 X 10*3/uL (0.04-0.35); Eosinophils % (A) 1.5 %; HCT 34.4 % (37.2-46.3); HGB 11.1 g/dL (12.0-15.0); Lymphocytes # (A) 1.85 X 10*3/uL (0.90-5.00); Lymphocytes % (A) 25.7 %; MCHC 32.3 g/dL (32.0-37.0); MCV 89.8 FL (80.0-97.0); Mean Platelet Volume 11.5 FL (9.5-12.2); Monocytes # (A) 0.54 X 10*3/uL (0.20-1.00); Monocytes % (A) 7.5 %; NRBC Per 100 WBC 0 X 10*3/uL (0.00-0.01); Neutrophils # (A) 4.62 X 10*3/uL (1.80-7.70); Platelet Count 240 X 10*3/uL (140-440); RBC 3.83 X 10*6/uL (4.10-5.20); RDW 13.6 % (11.5-14.5); WBC 7.21 X 10*3/uL (4.50-10.00)
[2024-05-07] MEDS ORDERED: PREGABALIN 75 MG CAP PO SCH (09:00)
[2024-05-07] MEDS: LACTULOSE 20 GM/30 ML CUP PO SCH (09:46)
[2024-05-07] MEDS: MAGNESIUM HYDROXIDE 2,400 MG/30 ML CUP PO SCH (09:47)
--- NOTE | 2024-05-07 12:52 | P.PN ---
Subjective Progress Note Date: 05/07/24 CHIEF COMPLAINT: Abdominal pain HISTORY OF PRESENT ILLNESS: The patient is a 53-year-old female with a co mplicated surgical history including gastric bypass including multiple abdominal surgeries. Patient continues to report abdominal pain more so on the left side of the abdomen. Patient complains of constipation. She reports no bowel movement or flatus for about 5 days. KUB x-ray reports nonspecific bowel gas pattern. Does report fecal material and gas are demonstrated throughout the colon and rectum. Afebrile. WBC 7.21 Hgb 11.1 PHYSICAL EXAM: VITAL SIGNS: Reviewed GENERAL: Well-developed in no acute distress. HEENT: No sclera icterus. Extraocular movements grossly intact. Moist buccal mucosa. Head is atraumatic, normocephalic. Hears conversational speech. No nasal drainage. NECK: Supple without lymphadenopathy. CHEST: Non-labored respirations and equal bilateral excursions. CARDIOVASCULAR: Palpable 2+ radial pulses. ABDOMEN: Soft. Protuberant. Tenderness palpation epigastric area, left upper quadrant left mid and left lower abdomen. MUSCULOSKELETAL: No clubbing or cyanosis. NEUROLOGIC: No focal or lateralizing signs. Cranial nerves II through XII grossly intact. PSYCH: Appropriate affect. Alert and oriented to person, place and time. SKIN: Well perfused. Good skin turgor. ASSESSMENT: 1. Intractable nausea and vomiting due to large bowel obstruction 2. Intractable epigastric left upper quadrant abdominal pain 3. History of gastric bypass for obesity 4. Diarrhea with change in bowel 5. History of bowel obstructions 6. Fibromyalgia. 7. Gastroesophageal reflux disease. 8. Diabetes type 2 mellitus 9. Hypertensive heart disease 10. Dyslipidemia. 11. Bilateral lower extremity edema. 12. Polycystic ovarian syndrome. 13. Restless leg syndrome. 14. History of MRSA 15. Cardiomyopathy. 16. Anxiety. 17. Neuropathy 18. Chronic sinusitis. 19. Panniculitis. 20. Factor V Leiden 21. Migraine 22. Obstructive sleep apnea 23. Fatty liver disease 24. Mitral valve prolapse 25. Angina 26. Chronic obstructive pulmonary disease 27. Claustrophobia 28. Posttraumatic stress disorder 29. Iron deficiency anemia 30. Depressive disorder 31. Morbid obesity due to excess calories, BMI initial 60.7 to 48.8 32. Obstructive sleep apnea. 33. Asthma. 34. Osteoarthritis. 35. Dehydration 36. Constipation PLAN: -Patient tentatively scheduled for colonoscopy tomorrow -Milk of molasses enema ordered to clear out stool from rectum -Lactulose and milk of mag and GoLytely bowel prep ordered for bowel cleanse for colonoscopy -May need diagnostic laparoscopy after fecal clearance -N.p.o. after midnight -Okay for clear liquid diet today Physician [employer] Assistants note has been reviewed by physician. Signing provider agrees with the documented findings, assessment, and plan of care. Objective - Vital Signs Vital signs: Vital Signs Temp 97.6 F 05/07/24 06:45 Pulse 64 05/07/24 06:45 Resp 16 05/07/24 06:45 BP 108/68 05/07/24 06:45 Pulse Ox 93 L 05/07/24 06:45 FiO2 Intake & Output 05/06/24 05/07/24 05/07/24 18:59 06:59 18:59 Weight 100.244 kg 100.244 kg Other: # Voids 2 - Labs CBC & Chem 7: 05/07/24 05:51 05/07/24 05:51 Labs: Abnormal Lab Results - Last 24 Hours (Table) 05/06/24 05/06/24 05/07/24 Range/Units 17:31 18:05 05:51 RBC 3.83 L (4.10-5.20) X 10*6/uL Hgb 11.1 L (12.0-15.0) g/dL Hct 34.4 L (37.2-46.3) % Sodium 135 L (137-145) mmol/L Glucose 118 H (74-99) mg/dL Urine Appearance Cloudy H (Clear) Ur Leukocyte Esterase Moderate H (Negative) Urine WBC 12 H (0-5) /hpf Ur Squamous Epith Cells 17 H (0-4) /hpf Urine Bacteria Rare H (None) /hpf Urine Mucus Rare H (None) /hpf 05/07/24 Range/Units 05:51 RBC (4.10-5.20) X 10*6/uL Hgb (12.0-15.0) g/dL Hct (37.2-46.3) % Sodium (137-145) mmol/L Glucose 127 H (74-99) mg/dL Urine Appearance (Clear) Ur Leukocyte Esterase (Negative) Urine WBC (0-5) /hpf Ur Squamous Epith Cells (0-4) /hpf Urine Bacteria (None) /hpf Urine Mucus (None) /hpf
[2024-05-07] MEDS: PEG 3350 (236 GM/BTL) + LYTES 4,000 ML BOTTLE PO ONE (14:27)
[2024-05-07] MEDS: ALPRAZolam 0.25 MG TAB PO PRN (16:38)
[2024-05-07] MEDS: SCOPOLAMINE 1 MG/72 HR PATCH TRANSDERM STA (18:01)
[2024-05-07] MEDS ORDERED: ZINC OXIDE PASTE (Z-GUARD) 1 APPLIC TOPICAL PRN (19:44)
[2024-05-07] MEDS: LORazepam 1 MG/0.5 ML VIAL IV PRN (20:40)
[2024-05-07] MEDS: NITROGLYCERIN SL TABS 0.4 MG TAB SUBLINGUAL PRN (20:40)
[2024-05-07] MEDS: PANTOPRAZOLE 40 MG/10 ML VIAL IVP SCH (22:30)
[2024-05-08 05:18] LABS: African American GFR (CKD) >90 (>60 ml/min/1.73 sqM); Anion Gap 4 mmol/L; Blood Urea Nitrogen 9 mg/dL (7-17); Calcium 8.8 mg/dL (8.4-10.2); Carbon Dioxide 29 mmol/L (22-30); Chloride 103 mmol/L (98-107); Glucose 119 mg/dL (74-99); Non-African American GFR(CKD) >90 (>60 ml/min/1.73 sqM); Potassium 4.1 mmol/L (3.5-5.1); Sodium 136 mmol/L (137-145)
[2024-05-08] MEDS: IV FLUID CONTINUATION 1,000 ML IV ONE (07:58)
[2024-05-08] MEDS ORDERED: PROPOFOL 10 MG/ML 20 ML VIAL IV ONE (07:58)
--- NOTE | 2024-05-08 08:42 | P.PCN ---
Date of Procedure: 05/08/24 Description of Procedure: PREOPERATIVE DIAGNOSIS: Large bowel obstruction History of partial colectomy History of sigmoid volvulus POSTOPERATIVE DIAGNOSIS: Large bowel obstruction History of partial colectomy History of sigmoid volvulus Colonoscopy OPERATION: Colonoscopy to the cecum, ileocecal valve and appendiceal orifice. SURGEON: Latricia Dumont MD. ANESTHESIA: MAC. INDICATIONS: The patient is a 53-year-old female who presented with left upper quadrant abdominal pain, large bowel obstruction, obstipation, constipation and history of prior colectomy with history of volvulus. Diagnostic colonoscopy was described. Benefits and risks were described and informed consent was obtained. DESCRIPTION OF PROCEDURE: The patient had undergone lactulose, milk of magnesia, milk of molasses and GoLytely prep. The patient had been brought into the operating room and laid in the left lateral decubitus position. After adequate intravenous sedation, the rectum was examined with 2% lidocaine jelly. No external hemorrhoids were encountered. The rectal tone was within normal limits. No lesions were palpated in the rectal vault. An Olympus colonoscope was advanced until the cecum, ileocecal valve and appendiceal orifice were clearly viewed. The prep was good. Scattered diverticulosis was encountered. No colonic polyps were found. No evidence of focal colitis was found. Retroflexion of the scope demonstrated grade 2 internal hemorrhoids without active bleeding or inflammation. The colon was desufflated. The patient had tolerated the procedure well. Withdrawal time was over 6 minutes. FINDINGS: Aronchick preparation quality scale 2 (1-5) Internal hemorrhoids, grade 2 External prolapsed hemorrhoids, grade 2 No arteriovenous malformations. No adenomatous polyps. No focal colitis. RECOMMENDATIONS: Lower endoscopy as needed As patient still reports persistent abdominal pain, diagnosed laparoscopy with lysis of adhesions described
[2024-05-08 09:09] VITALS: BP 116/78; PULSE 56; RESP 18; TEMP 97.6
--- NOTE | 2024-05-08 10:28 | P.DS ---
Providers Date of admission: 05/06/24 17:52 Expected date of discharge: 05/08/24 Attending physician: Latricia Dumont Primary care physician: Stated None Hospital Course: DISCHARGE DIAGNOSES: 1. Intractable nausea and vomiting due to large bowel obstruction 2. Intractable epigastric and left upper quadrant abdominal pain 3. History of gastric bypass for obesity 4. Constipation 5. History of bowel obstructions 6. Fibromyalgia. 7. Gastroesophageal reflux disease. 8. Diabetes type 2 mellitus 9. Hypertensive heart disease 10. Dyslipidemia. 11. Bilateral lower extremity edema. 12. Polycystic ovarian syndrome. 13. Restless leg syndrome. 14. History of MRSA 15. Cardiomyopathy. 16. Anxiety. 17. Neuropathy 18. Chronic sinusitis. 19. Panniculitis. 20. Factor V Leiden 21. Migraine 22. Obstructive sleep apnea 23. Fatty liver disease 24. Mitral valve prolapse 25. Angina 26. Chronic obstructive pulmonary disease 27. Claustrophobia 28. Posttraumatic stress disorder 29. Iron deficiency anemia 30. Depressive disorder 31. Morbid obesity due to excess calories, BMI initial 60.7 to 48.8 32. Obstructive sleep apnea. 33. Asthma. 34. Osteoarthritis. 35. Dehydration COURSE: The patient is a 53-year-old female with a complicated surgical history including gastric bypass including multiple abdominal surgeries and pre-existing bowel obstructions presented with intractable epigastric and left upper quadrant abdominal pain and prior CT scan images demonstrating moderate stool burden with clinical symptoms of lower bowel obstruction. Patient underwent multiple enemas including soapsuds enemas, cathartics including lactulose, milk of magnesia, GoLytely. She underwent colonoscopy to also assess for her prior colocolonic anastomosis. Colonoscopy to the appendiceal orifice was performed. Constipation had resolved. Patient still complained of left upper quadrant abdominal pain. Due to previous history of multiple abdominal adhesions, outpatient surgical invention was described. All discussions and answers reviewed. Patient was stable for discharge with close outpatient follow-up. Procedures: Colonoscopy, 05/08/2024 Patient Condition at Discharge: Stable Plan - Discharge Summary Discharge Rx Participant: No New Discharge Prescriptions: New Scopolamine 1 mg/72 Hr Patch [TransDerm Scop] 1 patch TRANSDERM Q72H #4 patch Lactulose [Cephulac] 30 ml PO BID PRN #500 ml PRN Reason: Constipation Continue Cyclobenzaprine [Flexeril] 10 mg PO HS Nitroglycerin Sl Tabs [Nitrostat] 0.4 mg PO Q5M PRN PRN Reason: Chest Pain Metoprolol Succinate [Toprol XL] 50 mg PO HS rOPINIRole HCL [Requip] 1 mg PO HS Topiramate [Topamax] 100 mg PO HS Cyclobenzaprine [Flexeril] 10 mg PO DAILY PRN PRN Reason: Muscle Spasm rOPINIRole HCL [Requip] 1 mg PO DAILY PRN PRN Reason: RESTLESS LEGS Pregabalin [Lyrica] 150 mg PO BID Atorvastatin [Lipitor] 40 mg PO HS Rizatriptan Benzoate [Rizatriptan] 10 mg PO BID PRN PRN Reason: Migraine Headache Amitriptyline HCl [Elavil] 75 mg PO HS PRN PRN Reason: Insomnia Clopidogrel [Plavix] 75 mg PO DAILY Discharge Medication List Cyclobenzaprine [Flexeril] 10 mg PO HS 08/05/16 [History] Metoprolol Succinate [Toprol XL] 50 mg PO HS 01/22/18 [History] Nitroglycerin Sl Tabs [Nitrostat] 0.4 mg PO Q5M PRN 01/22/18 [History] rOPINIRole HCL [Requip] 1 mg PO HS 03/21/18 [History] Amitriptyline HCl [Elavil] 75 mg PO HS PRN 06/16/21 [History] Rizatriptan Benzoate [Rizatriptan] 10 mg PO BID PRN 06/16/21 [History] Topiramate [Topamax] 100 mg PO HS 06/16/21 [History] Atorvastatin [Lipitor] 40 mg PO HS 12/23/23 [History] Clopidogrel [Plavix] 75 mg PO DAILY 12/23/23 [History] Cyclobenzaprine [Flexeril] 10 mg PO DAILY PRN 12/23/23 [History] Pregabalin [Lyrica] 150 mg PO BID 12/23/23 [History] rOPINIRole HCL [Requip] 1 mg PO DAILY PRN 12/23/23 [History] Lactulose [Cephulac] 30 ml PO BID PRN #500 ml 05/08/24 [Rx] Scopolamine 1 mg/72 Hr Patch [TransDerm Scop] 1 patch TRANSDERM Q72H #4 patch 05/08/24 [Rx] Follow up Appointment(s)/Referral(s): Thelma Schwartz MD [REFERRING] - 1-2 Days Bariatric [place], [place] [NON-STAFF] - 05/13/24 Patient Instructions/Handouts: Constipation (DC), Moderate Sedation (DC) Activity/Diet/Wound Care/Special Instructions: Do not restart Plavix until after surgery Discharge Disposition: HOME SELF-CARE
== END 2024-05-08 11:30 | disposition home or self-care (01) ==
LOC: EC 15:37 → 4SSUR 17:51 → INTOOBSV 17:52 → OBSVTOIN 17:52 → 4SSUR 19:29
PROVIDERS: ADMIT Surgery Plastic and Reconstructive Surgery; ATTEND Surgery Plastic and Reconstructive Surgery
DX: K56.600 Partial intestinal obstruction, unspecified as to cause (principal); I42.9 Cardiomyopathy, unspecified; D68.51 Activated protein C resistance; K57.30 Diverticulosis of large intestine without perforation or abscess without bleeding; K64.1 Second degree hemorrhoids; M79.7 Fibromyalgia; K21.9 Gastro-esophageal reflux disease without esophagitis; I11.9 Hypertensive heart disease without heart failure; E78.5 Hyperlipidemia, unspecified; R60.0 Localized edema; E28.2 Polycystic ovarian syndrome; G25.81 Restless legs syndrome; F41.9 Anxiety disorder, unspecified; E11.40 Type 2 diabetes mellitus with diabetic neuropathy, unspecified; J32.9 Chronic sinusitis, unspecified; M79.3 Panniculitis, unspecified; G43.909 Migraine, unspecified, not intractable, without status migrainosus; G47.33 Obstructive sleep apnea (adult) (pediatric); K76.0 Fatty (change of) liver, not elsewhere classified; I34.1 Nonrheumatic mitral (valve) prolapse; J44.89 Other specified chronic obstructive pulmonary disease; F40.240 Claustrophobia; F43.10 Post-traumatic stress disorder, unspecified; D50.9 Iron deficiency anemia, unspecified; F32.A Depression, unspecified; M19.90 Unspecified osteoarthritis, unspecified site; E86.0 Dehydration; I20.9 Angina pectoris, unspecified; E66.01 Morbid (severe) obesity due to excess calories; Z86.14 Personal history of Methicillin resistant Staphylococcus aureus infection; Z68.42 Body mass index [BMI] 45.0-49.9, adult; Z87.891 Personal history of nicotine dependence; Z90.49 Acquired absence of other specified parts of digestive tract; Z98.84 Bariatric surgery status; Z79.02 Long term (current) use of antithrombotics/antiplatelets; Z79.899 Other long term (current) drug therapy; Z88.0 Allergy status to penicillin; Z88.2 Allergy status to sulfonamides
CPT/HCPCS: 96376 ×3; 96374 ×2; 96375 ×2; 96361; 99285; 36415; 80053; 80048 ×2; 83605; 83690; 85025 ×2; 81001; 74018; 45378; G0378 ×3; J2060; J2405 ×3; J1171 ×3; J2704; J2470; 99284

== ENCOUNTER → 2024-05-06 | Outpatient (CLI) | payer MEDICARE ==
[2024-05-06 14:25] VITALS: BP 154/84; PULSE 93; RESP 16; TEMP 98.6; BMI 42.3
--- NOTE | 2024-05-06 15:00 | P.HPBAR ---
Bariatric H&P - History & Physicial H&P Date: 05/06/24 History & Physicial: Visit/CC: f/u Patient initial contact: Initial weight: 140.432 kg Initial weight in pounds: 309.60 Height: 5 ft Initial BMI: 60.4 Last weight: Current weight: 98.43 kg Current weight in pounds: 217.00 Current BMI: 42.3 Oxly body weight (based on NIH guidelines): Excess body weight loss: The patient is a 53 year-old F who presents for Bariatric Assessment. Lost to follow up. Started not to feel well 3 weeks ago. Reports not passing gas and bowel movement. Last BM saturday 5 days ago. Before bm was every other day. No new medications. She reports difficulty eating food since 1 week ago. She has gained 5 punds. She only eats little bites. She has left sided pain. CT reviewed with moderate redundant right colon and transverse colon. Moderate air along the left side. Splenic flexure with stool. GO to ER Past Medical History Past Medical History: Asthma, Blood Disorder, Chest Pain / Angina, COPD, Diabetes Mellitus, Fibromyalgia, GERD/Reflux, Hearing Disorder / Deafness, Hyperlipidemia, Hypertension, Liver Disease, Mitral Valve Prolapse (MVP), Musculoskeletal Disorder, Osteoarthritis (OA), Pneumonia, Respiratory Disorder, Sleep Apnea/CPAP/BIPAP Additional Past Medical History / Comment(s): MIGRAINES, DEGENERATIVE DISC DISEASE, FATTY LIVER, LEIDEN FACTOR 5, OCCASIONAL SWELLING IN LOWER EXT.NEUROPATHY, RLS, diabetes is in remission since surgery, chronic back pain, PATIENT HAS BEEN OFF MEDS FOR DIABETES SINCE BARIATRIC SURGERY History of Any Multi-Drug Resistant Organisms: None Reported, ESBL Year Discovered:: 09/15/18 MDRO Source:: ESBL URINE Past Surgical History: Adenoidectomy, Appendectomy, Bariatric Surgery, Bowel Re section, Breast Surgery, Section, Cholecystectomy, Ear Surgery, Heart Catheterization, Hernia Repair, Orthopedic Surgery, Tonsillectomy Additional Past Surgical History / Comment(s): ARTHROSCOPY RT KNEE X3, RT BREAST BX-NEG, (13) MYRINGOTOMYS. laparoscopic danielle-en-y with lysis of adhesions 2013; Surgical wound debridement x3 ; SX TO REMOVED SCAR TISSUE FROM PREVIOUS ABD SX;EGD ; LAP EXAM- APPY SMALL BOWEL OBSTRUCTION LYSIS OF ADHESIONS, 3 hernia repairs, 3 bowel resection, 07/2016 colon resection, adhesions removed 03/2018, part of colon and bowel removed 08/09 Past Anesthesia/Blood Transfusion Reactions: No Reported Reaction Additional Past Anesthesia/Blood Transfusion Reaction / Comm: SEVERE HEADACHE AFTER LAST SCOPE, clausterphobia Past Psychological History: Anxiety, Bipolar, Depression, PTSD Additional Psychological History / Comment(s): SOCIAL PHOBIA. pt lives with special needs son. has cpap machine-NO LONGER USING, and cane that she uses as needed Smoking Status: Former smoker Past Alcohol Use History: Occasional Additional Past Alcohol Use History / Comment(s): OCC CIG USE IN PAST age 20 to age 21- ONE CIG PER MONTH OR LESS Past Drug Use History: None Reported Additional Drug Use History / Comment(s): OCCASIONAL MARIJUANA - Past Family History Mother Family Medical History: Deep Vein Thrombosis (DVT), Hypertension, Pulmonary Embolus, Thyroid Disorder Additional Family Medical History / Comment(s): FACTOR 5 LEIDEN, MVP Father Family Medical History: Diabetes Mellitus, Hypertension, Myocardial Infarction ([place]) Additional Family Medical History / Comment(s): AGE 59 [place] Surgical - Exam Vital Signs Temp Pulse Resp BP 98.6 F 93 16 154/84 05/06/24 14:16 05/06/24 14:16 05/06/24 14:16 05/06/24 14:16 Bariatric Checklist Checklist: Plan: Checklist: EGD: 1. Hiatal hernia: 2. H. Pylori: HgbA1c: Vitamin D: Smoking: Current some day smoker Primary care physician referral: Dr. Zohreh FINCH Psychiatry clearance: Cardiology clearance: Sleep study: Diet journal: VTE risk score: VTE risk level: Rehab needs at discharge:
== END ==
LOC: BARWHC3 14:00
PROVIDERS: ATTEND Surgery Plastic and Reconstructive Surgery
DX: E66.01 Morbid (severe) obesity due to excess calories (principal); Z68.41 Body mass index [BMI] 40.0-44.9, adult; F17.210 Nicotine dependence, cigarettes, uncomplicated; Z88.2 Allergy status to sulfonamides; Z91.09 Other allergy status, other than to drugs and biological substances; Z88.1 Allergy status to other antibiotic agents; Z88.0 Allergy status to penicillin; Z91.041 Radiographic dye allergy status; Z91.048 Other nonmedicinal substance allergy status
CPT/HCPCS: 99211

== ENCOUNTER 2024-05-11 10:52 | Day surgery (SDC) | payer MEDICARE ==
[2024-05-08 13:29] VITALS: BMI 43.1
--- NOTE | 2024-05-11 08:12 | P.GSHP ---
History of Present Illness H&P Date: 05/11/24 CHIEF COMPLAINT: History of intra-abdominal adhesions HISTORY OF PRESENT ILLNESS: The patient is a 53-year-old female who presents with history of intra-abdominal adhesions from multiple prior surgeries including intractable abdominal pain. Patient was recently hospitalized with severe constipation and large bowel obstructive symptoms. Despite recent colonoscopy, her pain continues. She now presents for diagnostic laparoscopy including lysis of adhesions. PAST MEDICAL HISTORY: Please see list. PAST SURGICAL HISTORY: Please see list. MEDICATIONS: Please see list. ALLERGIES: Please see list. SOCIAL HISTORY: No illicit drug use FAMILY HISTORY: No reports of Crohn disease or ulcerative colitis. REVIEW OF ORGAN SYSTEMS: CONSTITUTIONAL: Denies any fever or chills. Denies recent weight loss or weight gain. HEENT: Denies any trouble with vision, hearing or nosebleeds. No difficulty swallowing. LYMPHATIC: The patient denies any lumps and bumps around the neck. ENDOCRINE: Denies any thyroid disorders. Denies any blood sugar glucose intolerance. RESPIRATORY: Denies pneumonia. Denies any troubles with breathing or dyspnea on exertion. CARDIOVASCULAR: Denies any chest pain, palpitations, or recent heart attacks. GASTROINTESTINAL: Recent severe constipation history of bowel obstruction GENITOURINARY: Denies any blood in urine or increased urinary frequency. MUSCULOSKELETAL: Denies any back pain, stiffness, joint arthritis. NEUROLOGIC: Denies any numbness or tingling along the distal extremities. No seizure disorders or headaches. PSYCHIATRIC: Denies depression or suidical ideation. HEMATOLOGIC: Denies any abnormal bleeding or bruising. BREASTS: Denies any breast lumps, pain or nipple discharge. PHYSICAL EXAM: GENERAL: Well-developed pleasant male in no acute distress. HEENT: No scleral icterus. Extraocular movements grossly intact. Moist buccal mucosa. NECK: Supple without lymphadenopathy. CHEST: Unlabored respirations. Equal bilateral excursions. CARDIOVASCULAR: Regular rate and rhythm. Distal 2+ pulses. ABDOMEN: Soft, nondistended. Tender generalized abdominal pain. MUSCULOSKELETAL: No clubbing, cyanosis, or edema. SKIN: Well perfused. PSYCH: Alert and oriented to self, place and time ASSESSMENT: 1. Intractable left-sided abdominal pain 2. History of multiple abdominal surgeries. 3. Intra-abdominal adhesions. PLAN: 1. Robotic lysis of adhesions were described in detail including risk of injury to the intestine, need for further surgery, and open technique. 2. DVT prophylaxis. 3. Antibiotic prophylaxis. 4. Patient is elevated risk due to history of gastric bypass and morbid obesity excess calories Past Medical History Past Medical History: Asthma, Blood Disorder, Chest Pain / Angina, COPD, Diabetes Mellitus, Fibromyalgia, GERD/Reflux, Hearing Disorder / Deafness, Hyperlipidemia, Hypertension, Liver Disease, Mitral Valve Prolapse (MVP), Musculoskeletal Disorder, Osteoarthritis (OA), Pneumonia, Respiratory Disorder, Sleep Apnea/CPAP/BIPAP Additional Past Medical History / Comment(s): MIGRAINES, DEGENERATIVE DISC DISEASE, FATTY LIVER, LEIDEN FACTOR 5, OCCASIONAL SWELLING IN LOWER EXT.NEUROPATHY, RLS, diabetes is in remission since surgery, chronic back pain, PATIENT HAS BEEN OFF MEDS FOR DIABETES SINCE BARIATRIC SURGERY History of Any Multi-Drug Resistant Organisms: None Reported, ESBL Date of last positivie culture/infection: 09/15/18 MDRO Source:: ESBL URINE Past Surgical History: Adenoidectomy, Appendectomy, Bariatric Surgery, Bowel Resection, Breast Surgery, Section, Cholecystectomy, Ear Surgery, Heart Catheterization, Hernia Repair, Orthopedic Surgery, Tonsillectomy Additional Past Surgical History / Comment(s): ARTHROSCOPY RT KNEE X3, RT BREAST BX-NEG, (13) MYRINGOTOMYS. laparoscopic danielle-en-y with lysis of adhesions 2013; Surgical wound debridement x3 ; SX TO REMOVED SCAR TISSUE FROM PREVIOUS ABD SX;EGD ; LAP EXAM- APPY SMALL BOWEL OBSTRUCTION LYSIS OF ADHESIONS, 3 hernia repairs, 3 bowel resection, 07/2016 colon resection, adhesions removed 03/2018, part of colon and bowel removed 08/09 Past Anesthesia/Blood Transfusion Reactions: No Reported Reaction Additional Past Anesthesia/Blood Transfusion Reaction / Comment(s): SEVERE HEADACHE AFTER LAST SCOPE, clausterphobia Smoking Status: Former smoker - Past Family History Mother Family Medical History: Deep Vein Thrombosis (DVT), Hypertension, Pulmonary Embolus, Thyroid Disorder Additional Family Medical History / Comment(s): FACTOR 5 LEIDEN, MVP Father Family Medical History: Diabetes Mellitus, Hypertension, Myocardial Infarction ([place]) Additional Family Medical History / Comment(s): AGE 59 [place] Medications and Allergies Home Medications Medication Instructions Recorded Confirmed Type Cyclobenzaprine [Flexeril] 10 mg PO HS 08/05/16 05/08/24 History Metoprolol Succinate [Toprol XL] 50 mg PO HS 01/22/18 05/08/24 History Nitroglycerin Sl Tabs [Nitrostat] 0.4 mg PO Q5M PRN 01/22/18 05/08/24 History rOPINIRole HCL [Requip] 1 mg PO HS 03/21/18 05/08/24 History Amitriptyline HCl [Elavil] 75 mg PO HS PRN 06/16/21 05/08/24 History Rizatriptan Benzoate [Rizatriptan] 10 mg PO BID PRN 06/16/21 05/08/24 History Topiramate [Topamax] 100 mg PO HS 06/16/21 05/08/24 History Atorvastatin [Lipitor] 40 mg PO HS 12/23/23 05/08/24 History Clopidogrel [Plavix] 75 mg PO DAILY 12/23/23 05/08/24 History Cyclobenzaprine [Flexeril] 10 mg PO DAILY PRN 12/23/23 05/08/24 History Pregabalin [Lyrica] 150 mg PO BID 12/23/23 05/08/24 History rOPINIRole HCL [Requip] 1 mg PO DAILY PRN 12/23/23 05/08/24 History Lactulose [Cephulac] 30 ml PO BID PRN #500 ml 05/08/24 05/08/24 Rx Scopolamine 1 mg/72 Hr Patch 1 patch TRANSDERM Q72H #4 patch 05/08/24 05/08/24 Rx [TransDerm Scop] Allergies Allergy/AdvReac Type Severity Reaction Status Date / Time Sulfa (Sulfonamide Allergy Severe Anaphylaxis Verified 05/08/24 12:57 Antibiotics) adhesive tape Allergy BLISTERS Verified 05/08/24 12:57 amoxicillin [From Augmentin] Allergy Rash/Hives Verified 05/08/24 12:57 clavulanic acid Allergy Rash/Hives Verified 05/08/24 12:57 [From Augmentin] Iodinated Contrast Media Allergy Itching Verified 05/08/24 12:57 [Iodinated Contrast- Oral and IV Dye] Penicillins Allergy Rash/Hives/Itching/Gi Verified 05/08/24 12:57 Upset adhesive AdvReac Itching Verified 05/08/24 12:57
[~2024-05-11 10:52] MED LIST changes: -LIDOCAINE 1% (10MG/ML) FOR IV START INTRADERMA PRN; +Pre Op ABX Message 1 EACH MISC MISCELLANE ONE
[2024-05-11] MEDS: IV FLUID CONTINUATION 1,000 ML IV ONE ×2 (11:47→14:23)
[2024-05-11 12:15] LABS: Glucose,Whole Blood 105 mg/dL (70-110)
[2024-05-11 12:19] VITALS: RESP 16; TEMP 97.4
[2024-05-11] MEDS: ONDANSETRON 4 MG/2 ML VIAL IVP ONE (12:23)
[2024-05-11] MEDS: LACTATED RINGERS 1,000 ML IV SCH (12:23)
[2024-05-11] MEDS: MIDAZOLAM 2 MG/2 ML VIAL IV PRN (12:24)
[2024-05-11] MEDS: DEXAMETHASONE SOD PHOSPHATE 4 MG/ML 1 ML VIAL IV ONE (12:24)
[2024-05-11] MEDS: SCOPOLAMINE 1 MG/72 HR PATCH TRANSDERM ONE (12:24)
[2024-05-11] MEDS: fentaNYL (PF) 50 MCG/ML 2 ML AMP IVP STA (12:33)
[2024-05-11] MEDS ORDERED: ROCURONIUM 10 MG/ML (5 ML VIAL) IV ONE (13:00)
[2024-05-11] MEDS ORDERED: SUCCINYLCHOLINE CHLORIDE 200 MG/10 ML VIAL IV ONE (13:00)
[2024-05-11] MEDS ORDERED: PROPOFOL 10 MG/ML 20 ML VIAL IV ONE (13:00)
[2024-05-11] MEDS ORDERED: SODIUM CHLORIDE 0.9% (PF) 10 ML VIAL ONE (13:00)
[2024-05-11] MEDS ORDERED: LIDOCAINE 1% INJ 10MG/ML (20 ML MDV) ONE (13:00)
[2024-05-11] MEDS ORDERED: GLYCOPYRROLATE 0.2 MG/ML 2 ML VIAL ONE (13:00)
[2024-05-11] MEDS ORDERED: DEXAMETHASONE SOD PHOSPHATE 4 MG/ML 1 ML VIAL ONE (13:00)
[2024-05-11] MEDS ORDERED: ePHEDrine 50 MG/ML 1 ML VIAL ONE (13:00)
[2024-05-11] MEDS ORDERED: ROPIVACAINE 5 MG/ML 30 ML VIAL ONE (13:00)
[2024-05-11] MEDS ORDERED: WATER FOR INJECTION, STERILE 10 ML VIAL IV ONE (13:00)
[2024-05-11] MEDS ORDERED: KETAMINE HCL IN 0.9 % NACL 50 MG/5 ML SYRINGE ONE (13:00)
[2024-05-11] MEDS ORDERED: fentaNYL (PF) 50 MCG/ML 2 ML AMP ONE (13:00)
[2024-05-11] MEDS ORDERED: NEOSTIGMINE 1 MG/ML 10 ML VIAL ONE (13:00)
[2024-05-11] MEDS: SODIUM CHLORIDE 0.9% 100 ML with ceFAZolin 2,000 MG IV ONE (13:04)
[2024-05-11] MEDS: LIDOCAINE 1%-EPI 1:100,000 20 ML VIAL SQ ONE (13:26)
--- NOTE | 2024-05-11 13:33 | P.ANPRN ---
Procedure Note - Anesthesia - Nerve Block Performed Bilateral Erector Spinae Single Time Out Performed: Yes Date of Procedure: 05/11/24 Procedure Start Time: 12:32 Procedure Stop Time: 12:40 Location of Patient: PreOp Indication: Acute Post-Operative Pain, Requested by Surgeon Sedation Type: Sedate with meaningful contact maintained Preparation: Sterile Prep Position: Prone Needle Types: Pajunk Needle Gauge: 21 Injectate: 0.5% Ropivacaine (see comment for volume) (20 ml + 10 ml NS + 4mg Dexamethasone per side) Blood Aspirated: No Pain Paresthesia on Injection Noted: No Resistance on Injection: Normal Image Stored and Saved: Yes Events: Uneventful and Well Tolerated
[2024-05-11] MEDS: HYDROmorphone 0.5 MG/0.5 ML SYRINGE IVP PRN (15:05)
--- NOTE | 2024-05-11 15:23 | P.OP ---
Date of Procedure: 05/11/24 Description of Procedure: SURGEON: LATRICIA DUMONT MD PREOPERATIVE DIAGNOSES: 1. Intractable epigastric and left upper quadrant abdominal pain due to adhesions 2. History of large bowel obstruction 3. History of gastric bypass for obesity 4. Constipation 5. Morbid obesity due to excess calories, BMI initial 60.7 to 41.2 6. Fibromyalgia. 7. Gastroesophageal reflux disease. 8. Diabetes type 2 mellitus 9. Hypertensive heart disease 10. Dyslipidemia. 11. Bilateral lower extremity edema. 12. Polycystic ovarian syndrome. 13. Restless leg syndrome. 14. History of MRSA 15. Cardiomyopathy. 16. Anxiety. 17. Neuropathy 18. Chronic sinusitis. 19. Panniculitis. 20. Factor V Leiden 21. Migraine 22. Obstructive sleep apnea 23. Fatty liver disease 24. Mitral valve prolapse 25. Angina 26. Chronic obstructive pulmonary disease due to asthma 27. Claustrophobia 28. Posttraumatic stress disorder 29. Iron deficiency anemia 30. Depressive disorder POSTOPERATIVE DIAGNOSES: 1. Intractable epigastric and left upper quadrant abdominal pain due to adhesions 2. Internal hernia, left upper quad 3. History of gastric bypass for obesity 4. History of large bowel obstruction 5. Morbid obesity due to excess calories, BMI initial 60.7 to 41.2 6. Fibromyalgia. 7. Gastroesophageal reflux disease. 8. Diabetes type 2 mellitus 9. Hypertensive heart disease 10. Dyslipidemia. 11. Bilateral lower extremity edema. 12. Polycystic ovarian syndrome. 13. Restless leg syndrome. 14. History of MRSA 15. Cardiomyopathy. 16. Anxiety. 17. Neuropathy 18. Chronic sinusitis. 19. Panniculitis. 20. Factor V Leiden 21. Migraine 22. Obstructive sleep apnea 23. Fatty liver disease 24. Mitral valve prolapse 25. Angina 26. Chronic obstructive pulmonary disease due to asthma 27. Claustrophobia 28. Posttraumatic stress disorder 29. Iron deficiency anemia 30. Depressive disorder OPERATION: 1. Robotic-assisted da Rocio Xi laparoscopic with extensive lysis of adhesions 2. Robotic-assisted da Rocio Xi laparoscopic closure of internal hernia, left upper quadrant ESTIMATED BLOOD LOSS: 5 mL. SPECIMENS REMOVED: None. COMPLICATIONS: None. OPERATIVE FINDINGS: 1. Highly redundant cecum and hepatic flexure with high risk of cecal volvulus 2. Small bowel volvulus with internal hernia, left upper quadrant for cause of abdominal pain 3. Left upper quadrant mesenteric adhesions 4. All small bowel viable 5. Highly redundant descending colon and splenic flexure INDICATIONS: The patient is a [id number] female who presents with epigastric abdominal pain including left upper quadrant abdominal pain. She was recently hospitalized for large bowel obstruction with overlapping constipation. Patient's pre-existing history of bowel obstruction especially gastric bypass. Her abdominal pain had not resolved. Surgical intervention with diagnostic laparoscopy, lysis of adhesions were described. Informed consent was obtained. Robotic assisted laparoscopic approach was described. Benefits and risks of the procedure including but not limited to bleeding, infection, injury to the small bowel was described. Informed consent was obtained. DESCRIPTION OF PROCEDURE: Patient was brought to the operating room, placed in supine position. After general induction, the abdomen had been prepped and draped in standard sterile fashion. The robotic da Rocio XI system was primed. After a timeout protocol was performed, the patient had been prepped and draped in standard sterile fashion. The robot was docked along the right lateral abdomen. The patient was repositioned in with right side up. Please note prior to docking of the robot; however, a 5 mm 0 degrees laparoscopic trocar entry was performed along the left upper quadrant. The abdomen was insufflated to 15 mmHg pressure which she tolerated well. Diagnostic laparoscopy was performed. Next, three 8 mm robotic ports were placed along the right lateral abdominal wall. The camera 8-mm port was maintained along mid-lateral abdomen. Please note that the ports were placed at least 10 to 15 cm away from the target anatomy. Instruments including graspers and vessel sealer were interchanged by the customer relations assistant. I had sat at the console. The small bowel had hypercontractility. The hepatic flexure including ascending colon and cecum are highly redundant for risk for cecal volvulus. The descending colon was also highly redundant with moderate gaseous distention. The small bowel was investigated from the terminal ileum to the ligament of Treitz with finding of redundant mesentery with active small bowel volvulus involving the jejunum to the jejunojejunostomy mesenteric defect. An internal hernia was confirmed at the left upper quadrant at the jejunojejunostomy mesenteric defect. Abnormal adhesions to the jejunojejunostomy was identified and divided. The mesentery small bowel volvulus were reduced. Extensive lysis of adhesions over 45 minutes was performed. To close the internal hernia, the 5 mm trocar at the left upper quadrant was upsized to a 12 mm laparoscopic trocar. Using a green 2-0 V-Loc, the internal hernia window was closed. The small bowel was investigated again from the terminal ileum to the ligament of Treitz and the gastric pouch with complete reduction of volvulus and no other pathology identified. The small bowel was viable.The robot was undocked. All pneumoperitoneum instruments were evacuated from the abdominal cavity. The incisions were reapproximated using 4-0 Monocryl in an interrupted subcuticular fashion. Please note along the trocar sites, local anesthetic was placed as a field block prior to insertion of all instruments. Dermabond was applied to the skin. At the end of the procedure needle, sponge, and instrument count had been verified correct by the surgical training specialist. The patient was transferred to postanesthesia care unit in stable condition. Plan - Discharge Summary Discharge Rx Participant: No New Discharge Prescriptions: Continue Cyclobenzaprine [Flexeril] 10 mg PO HS Nitroglycerin Sl Tabs [Nitrostat] 0.4 mg PO Q5M PRN PRN Reason: Chest Pain Metoprolol Succinate [Toprol XL] 50 mg PO HS rOPINIRole HCL [Requip] 1 mg PO HS Topiramate [Topamax] 100 mg PO HS Cyclobenzaprine [Flexeril] 10 mg PO DAILY PRN PRN Reason: Muscle Spasm rOPINIRole HCL [Requip] 1 mg PO DAILY PRN PRN Reason: RESTLESS LEGS Pregabalin [Lyrica] 150 mg PO BID Atorvastatin [Lipitor] 40 mg PO HS Scopolamine 1 mg/72 Hr Patch [TransDerm Scop] 1 patch TRANSDERM Q72H #4 patch Rizatriptan Benzoate [Rizatriptan] 10 mg PO BID PRN PRN Reason: Migraine Headache Amitriptyline HCl [Elavil] 75 mg PO HS PRN PRN Reason: Insomnia Clopidogrel [Plavix] 75 mg PO DAILY Lactulose [Cephulac] 30 ml PO BID PRN #500 ml PRN Reason: Constipation Discharge Medication List Cyclobenzaprine [Flexeril] 10 mg PO HS 08/05/16 [History] Metoprolol Succinate [Toprol XL] 50 mg PO HS 01/22/18 [History] Nitroglycerin Sl Tabs [Nitrostat] 0.4 mg PO Q5M PRN 01/22/18 [History] rOPINIRole HCL [Requip] 1 mg PO HS 03/21/18 [History] Amitriptyline HCl [Elavil] 75 mg PO HS PRN 06/16/21 [History] Rizatriptan Benzoate [Rizatriptan] 10 mg PO BID PRN 06/16/21 [History] Topiramate [Topamax] 100 mg PO HS 06/16/21 [History] Atorvastatin [Lipitor] 40 mg PO HS 12/23/23 [History] Clopidogrel [Plavix] 75 mg PO DAILY 12/23/23 [History] Cyclobenzaprine [Flexeril] 10 mg PO DAILY PRN 12/23/23 [History] Pregabalin [Lyrica] 150 mg PO BID 12/23/23 [History] rOPINIRole HCL [Requip] 1 mg PO DAILY PRN 12/23/23 [History] Lactulose [Cephulac] 30 ml PO BID PRN #500 ml 05/08/24 [Rx] Scopolamine 1 mg/72 Hr Patch [TransDerm Scop] 1 patch TRANSDERM Q72H #4 patch 05/08/24 [Rx] Follow up Appointment(s)/Referral(s): Latricia Dumont MD [STAFF PHYSICIAN] - 05/20/24 3:00 pm Patient Instructions/Handouts: Lysis of Abdominal Adhesions (DC) Activity/Diet/Wound Care/Special Instructions: NO LONG DRIVES OR AIRPLANE RIDES OVER 60 MINUTES FOR THE NEXT 2 WEEKS, 05/25/24, DUE TO HIGH RISK OF PULMONARY EMBOLISM/DVTs May drive in 48 hrs or as soon as recovered from anesthesia No lifting over 10 pounds in 2 weeks until 05/25/24, May shower. No bath tub soaks for two weeks until 05/25/24, Diet as tolerated. Use Tylenol, simethicone scheduled for the next 24-48 hours for best pain relief. Use ice along incisions for today to prevent swelling. Discharge Disposition: HOME SELF-CARE
[2024-05-11 15:58] VITALS: BP 147/65; PULSE 74
== END 2024-05-11 16:17 | disposition home or self-care (01) ==
LOC: OR 10:52
PROVIDERS: ATTEND Surgery Plastic and Reconstructive Surgery
DX: K66.0 Peritoneal adhesions (postprocedural) (postinfection) (principal); K21.9 Gastro-esophageal reflux disease without esophagitis; K45.8 Other specified abdominal hernia without obstruction or gangrene; K76.0 Fatty (change of) liver, not elsewhere classified; I25.119 Atherosclerotic heart disease of native coronary artery with unspecified angina pectoris; I34.1 Nonrheumatic mitral (valve) prolapse; I42.9 Cardiomyopathy, unspecified; J44.89 Other specified chronic obstructive pulmonary disease; J32.9 Chronic sinusitis, unspecified; I11.9 Hypertensive heart disease without heart failure; D50.9 Iron deficiency anemia, unspecified; D68.51 Activated protein C resistance; E11.40 Type 2 diabetes mellitus with diabetic neuropathy, unspecified; E78.5 Hyperlipidemia, unspecified; E28.2 Polycystic ovarian syndrome; E66.01 Morbid (severe) obesity due to excess calories; F43.10 Post-traumatic stress disorder, unspecified; F32.A Depression, unspecified; F40.240 Claustrophobia; R60.0 Localized edema; G47.33 Obstructive sleep apnea (adult) (pediatric); G25.81 Restless legs syndrome; G43.909 Migraine, unspecified, not intractable, without status migrainosus; H91.90 Unspecified hearing loss, unspecified ear; M79.3 Panniculitis, unspecified; M79.7 Fibromyalgia; Z68.44 Body mass index [BMI] 60.0-69.9, adult; Z98.84 Bariatric surgery status; Z99.89 Dependence on other enabling machines and devices; Z86.14 Personal history of Methicillin resistant Staphylococcus aureus infection; Z98.890 Other specified postprocedural states; Z90.49 Acquired absence of other specified parts of digestive tract; Z90.89 Acquired absence of other organs; Z87.891 Personal history of nicotine dependence; Z83.49 Family history of other endocrine, nutritional and metabolic diseases; Z88.2 Allergy status to sulfonamides; Z91.041 Radiographic dye allergy status; Z88.1 Allergy status to other antibiotic agents; Z88.0 Allergy status to penicillin; Z83.3 Family history of diabetes mellitus; Z79.02 Long term (current) use of antithrombotics/antiplatelets; Z79.899 Other long term (current) drug therapy
CPT/HCPCS: 44180; 81025; 64468; J2250; J0330; J1100; J2710; J2405; J0690; J2003; J3010; J2795; J2704; J1171; J1596

== ENCOUNTER 2024-07-26 19:04 | Emergency (ER) | payer MEDICARE ==
--- NOTE | 2024-07-26 19:10 | ED ---
Recheck HPI - General Chief Complaint: Abdominal Pain Stated Complaint: Post op issue/Swollen Incision Time Seen by Provider: 07/26/24 19:09 Source: patient, RN notes reviewed, old records reviewed Mode of arrival: wheelchair Limitations: no limitations - History of Present Illness Initial Comments: This is a 54-year-old female to the ER for evaluation patient presents today for evaluation regards to severe abdominal pain postoperative abdominal pain patient is on chronic abdominal surgery patient with Dr. Dumont started with gastric bypass about 10 years ago. Multiple surgeries since with most recent adhesions adhesion removal and patient has severe abdominal pain anterior abdominal pain over incision site. No fevers mild nausea no vomiting MD Complaint: other (Severe abdominal pain postop) -: days(s) (6) Returns Today for: persistent/worsening pain related to initial visit Symptoms Since Prior Visit: worsening pain Associated Symptoms: abdominal pain Treatments Prior to Arrival: Given Pain Meds on - Related Data Home Medications Medication Instructions Recorded Confirmed Cyclobenzaprine [Flexeril] 10 mg PO HS 08/05/16 07/22/24 Metoprolol Succinate [Toprol XL] 50 mg PO HS 01/22/18 07/22/24 Nitroglycerin Sl Tabs [Nitrostat] 0.4 mg PO Q5M PRN 01/22/18 07/22/24 rOPINIRole HCL [Requip] 1 mg PO HS 03/21/18 07/22/24 Amitriptyline HCl [Elavil] 75 mg PO HS PRN 06/16/21 07/22/24 Rizatriptan Benzoate [Rizatriptan] 10 mg PO BID PRN 06/16/21 07/22/24 Topiramate [Topamax] 100 mg PO HS 06/16/21 07/22/24 Atorvastatin [Lipitor] 40 mg PO HS 12/23/23 07/22/24 Clopidogrel [Plavix] 75 mg PO DAILY 12/23/23 07/22/24 Cyclobenzaprine [Flexeril] 10 mg PO DAILY PRN 12/23/23 07/22/24 Pregabalin [Lyrica] 150 mg PO BID 12/23/23 07/22/24 rOPINIRole HCL [Requip] 1 mg PO DAILY PRN 12/23/23 07/22/24 Previous Rx's Medication Instructions Recorded Acetaminophen Tab [Tylenol Tab] 1,000 mg PO Q6HR PRN #30 tablet 07/18/24 Lactulose [Cephulac] 30 ml PO BID PRN #500 ml 07/18/24 Simethicone [Gas-X] 125 mg PO AC-TID PRN #20 capsule 07/18/24 Metoclopramide [Reglan] 10 mg PO ACHS #30 tab 07/22/24 Allergies Allergy/AdvReac Type Severity Reaction Status Date / Time Sulfa (Sulfonamide Allergy Severe Anaphylaxis Verified 07/26/24 19:07 Antibiotics) adhesive tape Allergy BLISTERS Verified 07/26/24 19:07 amoxicillin [From Augmentin] Allergy Rash/Hives Verified 07/26/24 19:07 clavulanic acid Allergy Rash/Hives Verified 07/26/24 19:07 [From Augmentin] Iodinated Contrast Media Allergy Itching Verified 07/26/24 19:07 [Iodinated Contrast- Oral and IV Dye] Penicillins Allergy Rash/Hives/Itching/Gi Verified 07/26/24 19:07 Upset adhesive AdvReac Itching Verified 07/26/24 19:07 Review of Systems ROS Statement: Those systems with pertinent positive or pertinent negative responses have been documented in the HPI. ROS Other: All systems not noted in ROS Statement are negative. Past Medical History Past Medical History: Asthma, Blood Disorder, Chest Pain / Angina, COPD, Diabetes Mellitus, Fibromyalgia, GERD/Reflux, Hearing Disorder / Deafness, Hyperlipidemia, Hypertension, Liver Disease, Mitral Valve Prolapse (MVP), Musculoskeletal Disorder, Osteoarthritis (OA), Pneumonia, Respiratory Disorder, Sleep Apnea/CPAP/BIPAP Additional Past Medical History / Comment(s): MIGRAINES, DEGENERATIVE DISC DISEASE, FATTY LIVER, LEIDEN FACTOR 5, OCCASIONAL SWELLING IN LOWER EXT.NEUROPATHY, RLS, diabetes is in remission since surgery, chronic back pain, PATIENT HAS BEEN OFF MEDS FOR DIABETES SINCE BARIATRIC SURGERY History of Any Multi-Drug Resistant Organisms: C-DIFF, ESBL, MRSA Date of last positivie culture/infection: 09/15/18 MDRO Source:: ESBL URINE Past Surgical History: Adenoidectomy, Appendectomy, Bariatric Surgery, Bowel Resection, Breast Surgery, Section, Cholecystectomy, Ear Surgery, Heart Catheterization, Heart Catheterization With Stent, Hernia Repair, Orthopedic Surgery, Tonsillectomy Additional Past Surgical History / Comment(s): ARTHROSCOPY RT KNEE X3, RT BREAST BX-NEG, (13) MYRINGOTOMYS. laparoscopic danielle-en-y with lysis of adhesions 2014; Surgical wound debridement x3 ; SX TO REMOVED SCAR TISSUE FROM PREVIOUS ABD SX;EGD ; LAP EXAM- APPY SMALL BOWEL OBSTRUCTION LYSIS OF ADHESIONS, 3 hernia repairs, 3 bowel resection, 07/2016 colon resection, gastric bypass, adhesions removed 03/2018, part of colon and bowel removed 08/09, 05/11/24-lysis of adhesions, 07/17/24 Lysis of adhesions with reduction of sigmoid volvulus. Past Anesthesia/Blood Transfusion Reactions: No Reported Reaction Additional Past Anesthesia/Blood Transfusion Reaction / Comment(s): SEVERE HEADACHE AFTER LAST SCOPE, claustrophobia. no hx blood transfusion Date of Last Stent Placement:: 2023 02 cardiac stent Past Psychological History: Anxiety, Bipolar, Depression, PTSD Smoking Status: Former smoker Past Alcohol Use History: Rare Past Drug Use History: Marijuana - Past Family History Mother Family Medical History: Deep Vein Thrombosis (DVT), Hypertension, Pulmonary Embolus, Thyroid Disorder Additional Family Medical History / Comment(s): FACTOR 5 LEIDEN, MVP Father Family Medical History: Diabetes Mellitus, Hypertension, Myocardial Infarction ([place]) Additional Family Medical History / Comment(s): AGE 59 [place] General Exam Limitations: no limitations General appearance: alert, in no apparent distress Head exam: Present: atraumatic, normocephalic, normal inspection Eye exam: Present: normal appearance, PERRL, EOMI. Absent: scleral icterus, conjunctival injection, periorbital swelling ENT exam: Present: normal exam, mucous membranes moist Neck exam: Present: normal inspection. Absent: tenderness, meningismus, lymphadenopathy Respiratory exam: Present: normal lung sounds bilaterally. Absent: respiratory distress, wheezes, rales, rhonchi, stridor Cardiovascular Exam: Present: regular rate, normal rhythm, normal heart sounds. Absent: systolic murmur, diastolic murmur, rubs, gallop, clicks GI/Abdominal exam: Present: soft, normal bowel sounds. Absent: distended, tenderness, guarding, rebound, rigid Extremities exam: Present: normal inspection, full ROM, normal capillary refill. Absent: tenderness, pedal edema, joint swelling, calf tenderness Back exam: Present: normal inspection Neurological exam: Present: alert, oriented X3, CN II-XII intact Psychiatric exam: Present: normal affect, normal mood Skin exam: Present: warm, dry, intact, normal color. Absent: rash Course Vital Signs 07/26/24 07/26/24 07/26/24 19:05 19:57 21:10 Temperature 97.9 F Pulse Rate 75 77 65 Respiratory 18 16 16 Rate Blood Pressure 162/122 133/68 129/71 O2 Sat by Pulse 97 98 98 Oximetry 07/26/24 21:45 Temperature Pulse Rate 66 Respiratory 16 Rate Blood Pressure 125/58 O2 Sat by Pulse 96 Oximetry - Reevaluation(s) Reevaluation #1: 07/26/24 21:28 Medical records reviewed Reevaluation #4: Was pt. sent in by a medical professional or institution (JOSETTE Flores, NON MORSE INTERCEPT TECHNICIAN, urgent care, hospital, or assisted...) When possible be specific @ -no Did you speak to anyone other than the patient for history (EMS, parent, family, police, friend...)? What history was obtained from this source @ -no Did you review nursing and triage notes (agree or disagree)? Why? @ -agree Are old charts reviewed (outside hosp., previous admission, EMS record, old EKG, old radiological studies, urgent care reports/EKG's, assisted records)? Report findings @ -yes Differential Diagnosis (chest pain, altered mental status, abdominal pain women, abdominal pain men, vaginal bleeding, weakness, fever, dyspnea, syncope, headache, dizziness, GI bleed, back pain, seizure, CVA, palpatations, mental health, musculoskeletal)? @ -prior EKG interpreted by me (3pts min.). @ -yes X-rays interpreted by me (1pt min.). @ -yes negative for acute disease CT interpreted by me (1pt min.). @ -no U/S interpreted by me (1pt. min.). @ -no What testing was considered but not performed or refused? (CT, X-rays, U/S, labs)? Why? @ -none What meds were considered but not given or refused? Why? @ -none Did you discuss the management of the patient with other professionals (professionals i.e. JOSETTE Flores, NON MORSE INTERCEPT TECHNICIAN, lab, RT, psych nurse, social psychologist, machine operator replanter, teacher, space officer, caseworker protective services)? Give summary @ -no Was smoking cessation discussed for >3mins.? @ -no Was critical care preformed (if so, how long)? @ -no Were there social determinants of health that impacted care today? How? (Homelessness, low income, unemployed, alcoholism, drug addiction, transportation, low edu. Level, literacy, decrease access to med. care, nursing home, rehab)? @ -none Was there de-escalation of care discussed even if they declined (Discuss DNR or withdrawal of care, Hospice)? DNR status @ -no What co-morbidities impacted this encounter? (DM, HTN, Smoking, COPD, CAD, Cancer, CVA, ARF, Chemo, Hep., AIDS, mental health diagnosis, sleep apnea, morbid obesity)? @ -none Was patient admitted / discharged? Hospital course, mention meds given and route, prescriptions, significant lab abnormalities, going to OR and other pertinent info. @ - Undiagnosed new problem with uncertain prognosis? @ -no Drug Therapy requiring intensive monitoring for toxicity (Heparin, Nitro, Insulin, Cardizem)? @ -no Were any procedures done? @ -no Diagnosis/symptom? @ - Acute, or Chronic, or Acute on Chronic? @ -Acute Uncomplicated (without systemic symptoms) or Complicated (systemic symptoms)? @ -Complicated Side effects of treatment? @ -no Exacerbation, Progression, or Severe Exacerbation? @ -exacerbation Poses a threat to life or bodily function? How? (Chest pain, [place], [place], pneumonia, PE, COPD, DKA, ARF, appy, cholecystitis, CVA, Diverticulitis, Homicidal, Suicidal, threat to staff... and all critical care pts) @ -yes Reevaluation #5: Differential Abdominal Pain Women: Appendicitis, Cholecystitis, diverticulosis, ischemic bowel, pancreatitis, hepatitis, UTI, gastroenteritis, AAA, incarcerated hernia, bowel obstruction, constipation, inflammatory bowel, hepatitis, peptic ulcer disease, splenic infarction, perforated viscus, vulvitis, ovarian torsion, PID, kidney stone, placenta abruption, this is not meant to be an all-inclusive list Medical Decision Making - Lab Data Result diagrams: 07/26/24 19:37 07/26/24 19:37 Lab Results 07/26/24 07/26/24 07/26/24 Range/Units 19:37 19:37 19:37 WBC 7.02 (4.50-10.00) 10*3/uL RBC 3.90 L (4.10-5.20) 10*6/uL Hgb 11.4 L (12.0-15.0) g/dL Hct 33.9 L (37.2-46.3) % MCV 86.9 (80.0-97.0) fL MCH 29.2 (27.0-32.0) pg MCHC 33.6 (32.0-37.0) g/dL Plt Count 239 (140-440) 10*3/uL MPV 10.5 (9.5-12.2) fL Immature Gran % (Auto) 0.3 % Neutrophils % 57.5 % Lymphocytes % 29.3 % Monocytes % 10.1 % Eosinophils % 1.4 % Basophils % 1.4 % Immature Gran # 0.02 (0.00-0.04) 10*3/uL Neutrophils # 4.03 (1.80-7.70) 10*3/uL Lymphocytes # 2.06 (0.90-5.00) 10*3/uL Monocytes # 0.71 (0.20-1.00) 10*3/uL Eosinophils # 0.10 (0.04-0.35) 10*3/uL Basophils # 0.10 (0.00-0.10) 10*3/uL Sodium 133 L (137-145) mmol/L Potassium 4.6 (3.5-5.1) mmol/L Chloride 106 (98-107) mmol/L Carbon Dioxide 17 L (22-30) mmol/L Anion Gap 10 mmol/L BUN 29 H (7-17) mg/dL Creatinine 0.61 (0.52-1.04) mg/dL Est GFR (CKD-EPI)AfAm >90 (>60 ml/min/1.73 sqM) Est GFR (CKD-EPI)NonAf >90 (>60 ml/min/1.73 sqM) Glucose 159 H (74-99) mg/dL Plasma Lactic Acid Esteban (0.7-2.0) mmol/L Calcium 8.8 (8.4-10.2) mg/dL Total Bilirubin 1.0 (0.2-1.3) mg/dL AST 37 H (14-36) U/L ALT 18 (4-34) U/L Alkaline Phosphatase 113 (38-126) U/L Total Protein 7.0 (6.3-8.2) g/dL Albumin 4.3 (3.5-5.0) g/dL Amylase 51 (30-110) U/L Lipase 69 (23-300) U/L Urine Color Colorless Urine Appearance Cloudy H (Clear) Urine pH 5.5 (5.0-8.0) Ur Specific Walker 1.020 (1.001-1.035) Urine Protein Negative (Negative) Urine Glucose (UA) Negative (Negative) Urine Ketones Negative (Negative) Urine Blood Negative (Negative) Urine Nitrite Negative (Negative) Urine Bilirubin Negative (Negative) Urine Urobilinogen 2.0 (<2.0) mg/dL Ur Leukocyte Esterase Moderate H (Negative) Urine RBC 1 (0-5) /hpf Urine WBC 2 (0-5) /hpf Ur Squamous Epith Cells 4 (0-4) /hpf Urine Bacteria Rare H (None) /hpf Urine Mucus Rare H (None) /hpf 07/26/24 Range/Units 19:37 WBC (4.50-10.00) 10*3/uL RBC (4.10-5.20) 10*6/uL Hgb (12.0-15.0) g/dL Hct (37.2-46.3) % MCV (80.0-97.0) fL MCH (27.0-32.0) pg MCHC (32.0-37.0) g/dL Plt Count (140-440) 10*3/uL MPV (9.5-12.2) fL Immature Gran % (Auto) % Neutrophils % % Lymphocytes % % Monocytes % % Eosinophils % % Basophils % % Immature Gran # (0.00-0.04) 10*3/uL Neutrophils # (1.80-7.70) 10*3/uL Lymphocytes # (0.90-5.00) 10*3/uL Monocytes # (0.20-1.00) 10*3/uL Eosinophils # (0.04-0.35) 10*3/uL Basophils # (0.00-0.10) 10*3/uL Sodium (137-145) mmol/L Potassium (3.5-5.1) mmol/L Chloride (98-107) mmol/L Carbon Dioxide (22-30) mmol/L Anion Gap mmol/L BUN (7-17) mg/dL Creatinine (0.52-1.04) mg/dL Est GFR (CKD-EPI)AfAm (>60 ml/min/1.73 sqM) Est GFR (CKD-EPI)NonAf (>60 ml/min/1.73 sqM) Glucose (74-99) mg/dL Plasma Lactic Acid Esteban 0.7 (0.7-2.0) mmol/L Calcium (8.4-10.2) mg/dL Total Bilirubin (0.2-1.3) mg/dL AST (14-36) U/L ALT (4-34) U/L Alkaline Phosphatase (38-126) U/L Total Protein (6.3-8.2) g/dL Albumin (3.5-5.0) g/dL Amylase (30-110) U/L Lipase (23-300) U/L Urine Color Urine Appearance (Clear) Urine pH (5.0-8.0) Ur Specific Walker (1.001-1.035) Urine Protein (Negative) Urine Glucose (UA) (Negative) Urine Ketones (Negative) Urine Blood (Negative) Urine Nitrite (Negative) Urine Bilirubin (Negative) Urine Urobilinogen (<2.0) mg/dL Ur Leukocyte Esterase (Negative) Urine RBC (0-5) /hpf Urine WBC (0-5) /hpf Ur Squamous Epith Cells (0-4) /hpf Urine Bacteria (None) /hpf Urine Mucus (None) /hpf Disposition Clinical Impression: Postoperative pain, Hematoma Disposition: HOME SELF-CARE Condition: Good Instructions (If sedation given, give patient instructions): Acute Abdominal Pain (ED) Is patient prescribed a controlled substance at d/c from ED?: No Referrals: Latricia Dumont MD [STAFF PHYSICIAN] - 1-2 days Time of Disposition: 22:30
[2024-07-26] MEDS: ONDANSETRON 4 MG/2 ML VIAL IVP STA (19:44)
[2024-07-26] MEDS: SODIUM CHLORIDE 0.9% 1,000 ML IV ONE (19:44)
[2024-07-26] MEDS: PANTOPRAZOLE 40 MG/10 ML VIAL IVP STA (19:44)
[2024-07-26] MEDS: HYDROmorphone 1 MG/ML 1 ML SYRINGE IVP STA ×2 (19:44→23:11)
[2024-07-26] MEDS: methylPREDNISolone SOD SUCCI 125 MG/2 ML VIAL IV STA (19:44)
[2024-07-26] MEDS: diphenhydrAMINE 50 MG/ML 1 ML VIAL IVP STA (19:44)
[2024-07-26] MEDS: FAMOTIDINE 20 MG/2 ML VIAL IV STA (19:44)
[2024-07-26 19:46] LABS: Basophils % (A) 1.4 %; Eosinophils % (A) 1.4 %; HCT 33.9 % (37.2-46.3); HGB 11.4 g/dL (12.0-15.0); Lymphocytes # (A) 2.06 10*3/uL (0.90-5.00); Lymphocytes % (A) 29.3 %; MCH 29.2 pg (27.0-32.0); MCHC 33.6 g/dL (32.0-37.0); MCV 86.9 fL (80.0-97.0); Mean Platelet Volume 10.5 fL (9.5-12.2); Monocytes # (A) 0.71 10*3/uL (0.20-1.00); Monocytes % (A) 10.1 %; Neutrophils # (A) 4.03 10*3/uL (1.80-7.70); Neutrophils % (A) 57.5 %; Platelet Count 239 10*3/uL (140-440); WBC 7.02 10*3/uL (4.50-10.00)
[2024-07-26 19:52] LABS: Appearance,Urine Cloudy (Clear); Bacteria,Urine Rare /hpf; Bilirubin,Urine Negative (Negative); Blood,Urine Negative (Negative); Color,Urine Colorless; Glucose,Urine (UA) Negative (Negative); Ketones,Urine Negative (Negative); Leukocyte Esterase,Urine Moderate (Negative); Mucus,Urine Rare /hpf; Nitrite,Urine Negative (Negative); PH, Urine 5.5 (5.0-8.0); Protein,Urine Negative (Negative); RBC,Urine 1 /hpf (0-5); Squamous Epithelial Cell,Urine 4 /hpf (0-4); WBC,Urine 2 /hpf (0-5)
[2024-07-26 19:58] VITALS: RESP 16
[2024-07-26 20:01] LABS: ALT 18 U/L (4-34); African American GFR (CKD) >90 (>60 ml/min/1.73 sqM); Amylase 51 U/L (30-110); Anion Gap 10 mmol/L; Blood Urea Nitrogen 29 mg/dL (7-17); Calcium 8.8 mg/dL (8.4-10.2); Carbon Dioxide 17 mmol/L (22-30); Chloride 106 mmol/L (98-107); Glucose 159 mg/dL (74-99); Lipase 69 U/L (23-300); Non-African American GFR(CKD) >90 (>60 ml/min/1.73 sqM); Sodium 133 mmol/L (137-145)
[2024-07-26 20:04] LABS: Potassium 4.6 mmol/L (3.5-5.1)
[2024-07-26 20:05] LABS: AST 37 U/L (14-36); Albumin 4.3 g/dL (3.5-5.0); Alkaline Phosphatase 113 U/L (38-126)
[2024-07-26] MEDS: HYDROmorphone 1 MG/ML 1 ML SYRINGE IVP PRN (21:11)
--- NOTE | 2024-07-26 22:13 | CT ---
EXAMINATION TYPE: CT abdomen pelvis w con DATE OF EXAM: 07/26/2024 8:46 PM COMPARISON: 07/14/2024 CLINICAL INDICATION: Female, 54 years old with history of abdominal pain, post-op abdominal pain TECHNIQUE: Axial images were obtained from above the diaphragm to the pubic rami in the axial plane a t 5 mm thick sections. Reconstructed images are reviewed on the computer in the coronal plane. CONTRAST: 100 mL of Isovue 300. Study performed without Oral Contrast DLP: 1554.2 mGycm, Automated exposure control for dose reduction was used. FINDINGS: At the left subcutaneous tissues at the 1.6 cm collection. Hematoma developing abscess coul d be considered. 04/19/2000 image 22. Some minimal inflammatory change may be along the skin surface in the right abdomen, series 201 image 37 no suspicious intraperitoneal abnormality Limited CT sections are obtained the lung bases. The lung bases are clear. CT ABDOMEN: Gastric sleeve is present Liver: Normal Spleen: Normal Pancreas: Normal Adrenal glands: The adrenal glands are normal. Gallbladder: Surgically absent Kidneys: No masses are evident. No hydronephrosis is present. No cysts are present. Delayed images were obtained through the kidneys, which remain unremarkable. Aorta: Vascular calcification is within the aorta. Inferior vena cava: Normal. CT PELVIS: Loops of bowel within the abdomen and pelvis are normal. This study is without oral contrast limi ting bowel evaluation Appendix: There appears to be the appendix is normal. No suspicious dilated tubular structure or infl ammatory changes are evident. Urinary bladder: Normal. Genitourinary structures: Uterus is normal. Adnexa are unremarkable. No free fluid is within the pelv is Osseous structures: No suspicious lytic or sclerotic lesions. IMPRESSION: 1. 1.6 cm collection in the left upper quadrant subcutaneous tissue could be hematoma or developing abscess. Correlate with location of the patient's incisional discomfort 2. No suspicious intra-abdominal changes. [facility], Workstation: [id number], 07/26/2024 10:11 PM
[2024-07-26 22:37] VITALS: TEMP 98.5
[2024-07-26] MEDS: traMADol 50 MG STARTER PACK 3 TAB BTL PO STA (23:10)
[2024-07-26 23:17] VITALS: BP 132/63; PULSE 68
== END 2024-07-26 23:35 | disposition home or self-care (01) ==
LOC: EC 19:04
DX: K91.871 Postprocedural hematoma of a digestive system organ or structure following other procedure (principal); Z88.0 Allergy status to penicillin; Z88.1 Allergy status to other antibiotic agents; Z88.2 Allergy status to sulfonamides; Z91.041 Radiographic dye allergy status; Z91.09 Other allergy status, other than to drugs and biological substances; Z87.891 Personal history of nicotine dependence
CPT/HCPCS: 99284; 96374; 96375 ×5; 96376 ×2; 36415; 80053; 82150; 83605; 83690; 85025; 81001; 74177; 96361; J1200; J2405; J1171; Q9967; J2919; J2470; J1308

== ENCOUNTER → 2024-08-03 | Outpatient (CLI) | payer MEDICARE ==
--- NOTE | 2024-08-03 10:41 | US ---
EXAMINATION TYPE: US abdomen limited DATE OF EXAM: 08/03/2024 COMPARISON: CT CLINICAL INDICATION: Female, 54 years old with history of R10.12 LEFT UPPER QUADRANT PAIN; Twisted co sasha surgery two weeks ago, hard painful lumps at two incision sites. TECHNIQUE: Grayscale and color Doppler imaging of the area of the left flank. FINDINGS: Heterogenous areas at patients areas of concern, ? Scar tissue vs other etiology. No defin ite mass. No organizing fluid collection. No lymphadenopathy. IMPRESSION: Suspected scar tissue in the area of concern. No suspicious masses or organizing fluid collection. [facility], , 08/03/2024 10:38 AM
== END | disposition home or self-care (01) ==
LOC: RADUSWWP 09:43
PROVIDERS: ATTEND Surgery Plastic and Reconstructive Surgery
DX: R10.12 Left upper quadrant pain (principal)
CPT/HCPCS: 76705

== ENCOUNTER 2024-08-13 09:10 | Inpatient (IN) | payer MEDICARE ==
[2024-08-10 12:57] VITALS: BMI 43.3
--- NOTE | 2024-08-13 08:23 | P.GSHP ---
History of Present Illness H&P Date: 08/13/24 CHIEF COMPLAINT: Recurrent sigmoid volvulus HISTORY OF PRESENT ILLNESS: The patient is a 54-year-old female who presents with recurrent sigmoid volvulus including increasing abdominal pain. Patient had been previously admitted due to recurrent abdominal pain and future sigmoid volvulus. She presents for volvulus decompression and resection. PAST MEDICAL HISTORY: Please see list. PAST SURGICAL HISTORY: Please see list. MEDICATIONS: Please see list. ALLERGIES: Please see list. SOCIAL HISTORY: No illicit drug use FAMILY HISTORY: No reports of Crohn disease or ulcerative colitis. REVIEW OF ORGAN SYSTEMS: CONSTITUTIONAL: Denies any fever or chills. HEENT: Denies any trouble with vision or nosebleeds. No difficulty swallowing. LYMPHATIC: The patient denies any lumps and bumps around the neck. ENDOCRINE: Denies any thyroid disorders. Has blood sugar glucose intolerance. RESPIRATORY: Denies pneumonia. Denies any troubles with breathing or dyspnea on exertion. CARDIOVASCULAR: Prior chest pain. GASTROINTESTINAL: Has recurrent sigmoid volvulus GENITOURINARY: Has increased urinary frequency. MUSCULOSKELETAL: Has back pain, stiffness, joint arthritis. NEUROLOGIC: Denies any numbness or tingling along the distal extremities. No seizure disorders or headaches. PSYCHIATRIC: Has depression HEMATOLOGIC: Has pre-existing blood disorder. PHYSICAL EXAM: VITAL SIGNS: Stable GENERAL: Well-developed pleasant in no acute distress. HEENT: No scleral icterus. Extraocular movements grossly intact. Moist buccal mucosa. NECK: Supple without lymphadenopathy. CHEST: Unlabored respirations. Equal bilateral excursions. CARDIOVASCULAR: Regular rate and rhythm. Distal 2+ pulses. ABDOMEN: Obese, tender left lower abdomen. MUSCULOSKELETAL: No clubbing, cyanosis, or edema. NERUO: Cranial nerves 2-12 grossly intact. PSYCH: Alert and oriented to person place and time. ASSESSMENT: 1. Recurrent sigmoid volvulus. PLAN: 1. Benefits and risks of surgical robotic sigmoid resection was reviewed in detail. Robotic-assisted approach was also described. 2. Enhanced colon recovery program. 3. DVT prophylaxis. 4. Antibiotic prophylaxis. 5. Inpatient hospitalization greater than 2 nights. 6. Recommend colonoscopy for decompression of sigmoid volvulus. 7. Patient is elevated risk due to multiple prior abdominal surgeries. Past Medical History Past Medical History: Asthma, Blood Disorder, Chest Pain / Angina, COPD, Diabetes Mellitus, Fibromyalgia, GERD/Reflux, Hearing Disorder / Deafness, Hyperlipidemia, Hypertension, Liver Disease, Mitral Valve Prolapse (MVP), Musculoskeletal Disorder, Osteoarthritis (OA), Pneumonia, Respiratory Disorder, Sleep Apnea/CPAP/BIPAP Additional Past Medical History / Comment(s): MIGRAINES, DEGENERATIVE DISC DISEASE, FATTY LIVER, LEIDEN FACTOR 5, OCCASIONAL SWELLING IN LOWER EXT., NEUROPATHY, RLS, PATIENT HAS BEEN OFF MEDS FOR DIABETES SINCE BARIATRIC SURGERY, CHRONIC BACK PAIN History of Any Multi-Drug Resistant Organisms: C-DIFF, ESBL, MRSA Date of last positivie culture/infection: 09/15/18 MDRO Source:: ESBL URINE Past Surgical History: Adenoidectomy, Appendectomy, Bariatric Surgery, Bowel Resection, Breast Surgery, Section, Cholecystectomy, Ear Surgery, Heart Catheterization, Heart Catheterization With Stent, Hernia Repair, Orthopedic Surgery, Tonsillectomy Additional Past Surgical History / Comment(s): ARTHROSCOPY RT KNEE X3, RT BREAST BX-NEG, (13) MYRINGOTOMIES, laparoscopic danielle-en-y with lysis of adhesions 2013, Surgical wound debridement x3, SX TO REMOVE SCAR TISSUE FROM PREVIOUS ABD SX, EGD, EXPL. LAP, 3 hernia repairs, mult. bowel resections, mult. lysis of adhesions, 07/17/24 Lysis of adhesions with reduction of sigmoid volvulus. Past Anesthesia/Blood Transfusion Reactions: No Reported Reaction Additional Past Anesthesia/Blood Transfusion Reaction / Comment(s): SEVERE HEADACHE AFTER LAST SCOPE, claustrophobia. no hx blood transfusion Date of Last Stent Placement:: 2023 1 cardiac stent Past Psychological History: Anxiety, Bipolar, Depression, PTSD Additional Psychological History / Comment(s): SOCIAL PHOBIA. Smoking Status: Former smoker Past Alcohol Use History: Rare Additional Past Alcohol Use History / Comment(s): OCC CIG USE IN PAST age 20 to age 21- ONE CIG PER MONTH OR LESS Past Drug Use History: Marijuana Additional Drug Use History / Comment(s): OCCASIONAL MARIJUANA - Past Family History Mother Family Medical History: Deep Vein Thrombosis (DVT), Hypertension, Pulmonary Embolus, Thyroid Disorder Additional Family Medical History / Comment(s): FACTOR 5 LEIDEN, MVP Father Family Medical History: Diabetes Mellitus, Hypertension, Myocardial Infarction ([place]) Additional Family Medical History / Comment(s): AGE 59 [place] Medications and Allergies Home Medications Medication Instructions Recorded Confirmed Type Cyclobenzaprine [Flexeril] 10 mg PO HS 08/05/16 08/10/24 History Metoprolol Succinate [Toprol XL] 50 mg PO HS 01/22/18 08/10/24 History Nitroglycerin Sl Tabs [Nitrostat] 0.4 mg PO Q5M PRN 01/22/18 08/10/24 History rOPINIRole HCL [Requip] 1 mg PO HS 03/21/18 08/10/24 History Amitriptyline HCl [Elavil] 75 mg PO HS PRN 06/16/21 08/10/24 History Rizatriptan Benzoate [Rizatriptan] 10 mg PO BID PRN 06/16/21 08/10/24 History Topiramate [Topamax] 100 mg PO HS 06/16/21 08/10/24 History Atorvastatin [Lipitor] 40 mg PO HS 12/23/23 08/10/24 History Clopidogrel [Plavix] 75 mg PO DAILY 12/23/23 08/10/24 History Cyclobenzaprine [Flexeril] 10 mg PO DAILY PRN 12/23/23 08/10/24 History Pregabalin [Lyrica] 150 mg PO BID 12/23/23 08/10/24 History rOPINIRole HCL [Requip] 1 mg PO DAILY PRN 12/23/23 08/10/24 History Acetaminophen Tab [Tylenol Tab] 1,000 mg PO Q6HR PRN #30 tablet 07/18/24 08/10/24 Rx Lactulose [Cephulac] 30 ml PO BID PRN #500 ml 07/18/24 08/10/24 Rx Simethicone [Gas-X] 125 mg PO AC-TID PRN #20 capsule 07/18/24 08/10/24 Rx Metoclopramide [Reglan] 10 mg PO ACHS #30 tab 07/22/24 08/10/24 Rx Allergies Allergy/AdvReac Type Severity Reaction Status Date / Time Sulfa (Sulfonamide Allergy Severe Anaphylaxis Verified 08/10/24 12:20 Antibiotics) adhesive tape Allergy BLISTERS Verified 08/10/24 12:20 amoxicillin [From Augmentin] Allergy Rash/Hives Verified 08/10/24 12:20 clavulanic acid Allergy Rash/Hives Verified 08/10/24 12:20 [From Augmentin] Iodinated Contrast Media Allergy Itching Verified 08/10/24 12:20 [Iodinated Contrast- Oral and IV Dye] Penicillins Allergy Rash/Hives/Itching/Gi Verified 08/10/24 12:20 Upset adhesive AdvReac Itching Verified 08/10/24 12:20
[~2024-08-13 09:10] MED LIST changes: +LIDOCAINE 1% (10MG/ML) FOR IV START INTRADERMA PRN; -Pre Op ABX Message 1 EACH MISC MISCELLANE ONE
[2024-08-13] MEDS: IV FLUID CONTINUATION 1,000 ML IV ONE (09:27)
[2024-08-13] MEDS: LACTATED RINGERS 1,000 ML IV SCH (10:41)
[2024-08-13 10:47] LABS: Glucose,Whole Blood 127 mg/dL (70-110)
[2024-08-13 10:51] LABS: Basophils # (A) 0.06 10*3/uL (0.00-0.10); Basophils % (A) 1.2 %; Eosinophils # (A) 0.13 10*3/uL (0.04-0.35); Eosinophils % (A) 2.5 %; HCT 34.2 % (37.2-46.3); HGB 11.8 g/dL (12.0-15.0); Lymphocytes # (A) 1.58 10*3/uL (0.90-5.00); Lymphocytes % (A) 30.8 %; MCH 29.9 pg (27.0-32.0); MCHC 34.5 g/dL (32.0-37.0); MCV 86.8 fL (80.0-97.0); Mean Platelet Volume 10.1 fL (9.5-12.2); Monocytes # (A) 0.46 10*3/uL (0.20-1.00); Neutrophils # (A) 2.88 10*3/uL (1.80-7.70); Neutrophils % (A) 56.1 %; Platelet Count 216 10*3/uL (140-440); RBC 3.94 10*6/uL (4.10-5.20); RDW 14.2 % (11.5-14.5); WBC 5.13 10*3/uL (4.50-10.00)
[2024-08-13] MEDS ORDERED: PROPOFOL 10 MG/ML 20 ML VIAL IV ONE (10:59)
[2024-08-13 11:11] LABS: ALT 16 U/L (4-34); AST 27 U/L (14-36); African American GFR (CKD) >90 (>60 ml/min/1.73 sqM); Alkaline Phosphatase 111 U/L (38-126); Anion Gap 8 mmol/L; Blood Urea Nitrogen 14 mg/dL (7-17); Calcium 9.3 mg/dL (8.4-10.2); Carbon Dioxide 23 mmol/L (22-30); Chloride 107 mmol/L (98-107); Glucose 124 mg/dL (74-99); Non-African American GFR(CKD) >90 (>60 ml/min/1.73 sqM); Potassium 4.3 mmol/L (3.5-5.1); Sodium 138 mmol/L (137-145); Total Protein 6.4 g/dL (6.3-8.2)
--- NOTE | 2024-08-13 11:23 | P.PCN ---
Date of Procedure: 08/13/24 Description of Procedure: PREOPERATIVE DIAGNOSIS: Sigmoid volvulus POSTOPERATIVE DIAGNOSIS: Sigmoid volvulus OPERATION: Colonoscopy decompression for sigmoid volvulus to the cecum, ileocecal valve and appendiceal orifice. SURGEON: Latricia Dumont MD. ANESTHESIA: MAC. INDICATIONS: The patient is a 54-year-old female who presents with increased abdominal pain from sigmoid volvulus. She presents for colonic decompression. Benefits and risks were described and informed consent was obtained. DESCRIPTION OF PROCEDURE: The patient had undergone Suprep. The patient had been brought into the operating room and laid in the left lateral decubitus position. After adequate intravenous sedation, the rectum was examined with 2% lidocaine jelly. No external hemorrhoids were encountered. The rectal tone was within normal limits. No lesions were palpated in the rectal vault. An Olympus colonoscope was advanced until the cecum, ileocecal valve and appendiceal orifice were clearly viewed. The prep was fair. No scattered diverticulosis was encountered. No colonic polyps were found. Air within the colon was decompressed throughout regarding sigmoid volvulus. Retroflexion of the scope demonstrated grade 1 internal hemorrhoids without active bleeding or inflammation. The colon was desufflated. The patient had tolerated the procedure well. Withdrawal time was over 6 minutes. FINDINGS: Aronchick preparation quality scale 3 (1-5) Internal hemorrhoids, grade 1 No external prolapsed hemorrhoids. No arteriovenous malformations. No adenomatous polyps. No focal colitis. Sigmoid volvulus decompressed RECOMMENDATIONS: 1. 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
[2024-08-13] MEDS ORDERED: Antibiotics per Pharmacy 1 EACH MISC MISCELLANE PRN (11:45)
[2024-08-13] MEDS ORDERED: AMITRIPTYLINE HCL 25 MG TAB PO PRN (11:49)
[2024-08-13] MEDS ORDERED: CYCLOBENZAPRINE 10 MG TAB PO PRN (11:49)
[2024-08-13] MEDS ORDERED: SUMAtriptan succinate 50 MG TAB PO PRN (11:49)
[2024-08-13] MEDS ORDERED: NITROGLYCERIN SL TABS 0.4 MG TAB SUBLINGUAL PRN (11:49)
[2024-08-13] MEDS: SCOPOLAMINE 1 MG/72 HR PATCH TRANSDERM STA (12:04)
[2024-08-13] MEDS: HYDROmorphone 1 MG/ML 1 ML SYRINGE IVP PRN (12:11)
[2024-08-13] MEDS: METOCLOPRAMIDE 5 MG/ML 2 ML VIAL IVP PRN (12:58)
[2024-08-13] MEDS: SODIUM CHLORIDE 0.9% 1,000 ML IV SCH (13:01)
[2024-08-13] MEDS: metroNIDAZOLE 500 MG TAB PO SCH (16:08)
[2024-08-13] MEDS: NEOMYCIN 500 MG TAB PO SCH (16:09)
[2024-08-13] MEDS: PEG 3350 (420 GM/BTL) + LYTES 4,000 ML BOTTLE PO ONE (16:10)
[2024-08-13] MEDS: MAGNESIUM SULFATE-D5W PMX 1 GM in DEXTROSE/WATER 1 100ML.BAG IVPB SCH (16:11)
[2024-08-13 16:48] LABS: Glucose,Whole Blood 99 mg/dL (70-110)
[2024-08-13] MEDS: ACETAMINOPHEN IV (For NPO) 1,000 MG in EMPTY BAG 1 BAG IVPB SCH (18:35)
[2024-08-13] MEDS: ONDANSETRON 4 MG/2 ML VIAL IVP SCH (18:38)
[2024-08-13] MEDS: SIMETHICONE 40 MG/0.6 ML DROPS 2,000 MG/30 ML BOTTLE PO SCH (18:38)
[2024-08-13 21:17] LABS: Glucose,Whole Blood 159 mg/dL (70-110)
[2024-08-13] MEDS: TEMAZEPAM 15 MG CAP PO ONE (22:34)
[2024-08-13] MEDS: METOPROLOL SUCCINATE (ER) 50 MG TAB.ER.24H PO SCH (22:34)
[2024-08-13] MEDS: CYCLOBENZAPRINE 10 MG TAB PO SCH (22:35)
[2024-08-13] MEDS: PREGABALIN 75 MG CAP PO SCH (22:35)
[2024-08-13] MEDS: TOPIRAMATE 100 MG TAB PO SCH (22:36)
[2024-08-14] MEDS ORDERED: ONDANSETRON 4 MG/2 ML VIAL IVP PRN (05:00)
[2024-08-14] MEDS ORDERED: metroNIDAZOLE-NS PMX 500 MG in SALINE 1 100ML.BAG IVPB PRN (05:00)
[2024-08-14 06:01] LABS: Glucose,Whole Blood 96 mg/dL (70-110)
[2024-08-14 06:54] LABS: ALT 19 U/L (4-34); AST 29 U/L (14-36); African American GFR (CKD) >90 (>60 ml/min/1.73 sqM); Albumin 3.9 g/dL (3.5-5.0); Albumin/Globulin Ratio 1.7; Alkaline Phosphatase 106 U/L (38-126); Anion Gap 6 mmol/L; Blood Urea Nitrogen 9 mg/dL (7-17); Calcium 8.8 mg/dL (8.4-10.2); Carbon Dioxide 22 mmol/L (22-30); Chloride 108 mmol/L (98-107); Globulin 2.3 g/dL; Glucose 108 mg/dL (74-99); Non-African American GFR(CKD) >90 (>60 ml/min/1.73 sqM); Potassium 4.1 mmol/L (3.5-5.1); Sodium 136 mmol/L (137-145); Total Bilirubin 0.7 mg/dL (0.2-1.3); Total Protein 6.2 g/dL (6.3-8.2)
[2024-08-14] MEDS ORDERED: ACETAMINOPHEN TAB 500 MG TAB PO PRN (07:00)
[2024-08-14 07:36] LABS: Basophils # (A) 0.06 10*3/uL (0.00-0.10); Basophils % (A) 1.1 %; Eosinophils % (A) 3.7 %; HCT 34.9 % (37.2-46.3); HGB 11.3 g/dL (12.0-15.0); Lymphocytes # (A) 1.74 10*3/uL (0.90-5.00); MCH 29.6 pg (27.0-32.0); MCHC 32.4 g/dL (32.0-37.0); MCV 91.4 fL (80.0-97.0); Mean Platelet Volume 10.8 fL (9.5-12.2); Monocytes # (A) 0.43 10*3/uL (0.20-1.00); Monocytes % (A) 7.9 %; Neutrophils % (A) 55.1 %; Platelet Count 187 10*3/uL (140-440); RBC 3.82 10*6/uL (4.10-5.20); RDW 14.5 % (11.5-14.5); WBC 5.44 10*3/uL (4.50-10.00)
[2024-08-14 11:18] LABS: Glucose,Whole Blood 105 mg/dL (70-110)
[2024-08-14] MEDS: ALVIMOPAN 12 MG CAPSULE PO PRN (13:06)
[2024-08-14] MEDS: MIDAZOLAM 2 MG/2 ML VIAL IV ONE (13:19)
[2024-08-14 13:31] LABS: Glucose,Whole Blood 93 mg/dL (70-110)
[2024-08-14] MEDS: HEPARIN SODIUM,PORCINE 5,000 UNIT/ML 1 ML VIAL SQ PRN (13:39)
[2024-08-14] MEDS: IV FLUID CONTINUATION 1,000 ML IV ONE (13:43)
[2024-08-14] MEDS ORDERED: ePHEDrine 50 MG/ML 1 ML VIAL ONE (14:22)
[2024-08-14] MEDS ORDERED: ROCURONIUM 10 MG/ML (5 ML VIAL) IV ONE (14:22)
[2024-08-14] MEDS ORDERED: LIDOCAINE 1% INJ 10MG/ML (20 ML MDV) ONE (14:22)
[2024-08-14] MEDS ORDERED: fentaNYL (PF) 50 MCG/ML 2 ML AMP ONE (14:22)
[2024-08-14] MEDS ORDERED: PROPOFOL 10 MG/ML 20 ML VIAL IV ONE (14:22)
[2024-08-14] MEDS ORDERED: NEOSTIGMINE 1 MG/ML 10 ML VIAL ONE (14:22)
[2024-08-14] MEDS ORDERED: GLYCOPYRROLATE 0.2 MG/ML 2 ML VIAL ONE (14:22)
[2024-08-14] MEDS ORDERED: PHENYLEPHRINE 10 MG/ML VIAL ONE (14:22)
[2024-08-14] MEDS ORDERED: HYDROmorphone (PF) 1 MG/ML ONE (14:22)
[2024-08-14] MEDS ORDERED: MIDAZOLAM 2 MG/2 ML VIAL ONE (14:22)
[2024-08-14] MEDS ORDERED: SUCCINYLCHOLINE CHLORIDE 200 MG/10 ML VIAL IV ONE (14:22)
[2024-08-14] MEDS: LIDOCAINE 1%-EPI 1:100,000 20 ML VIAL SQ ONE (15:17)
[2024-08-14] MEDS: LACTATED RINGERS 1,000 ML IV ONE ×2 (15:25→18:55)
[2024-08-14] MEDS ORDERED: NALOXONE 0.4 MG/ML 1 ML VIAL IV PRN (21:29)
[2024-08-14] MEDS ORDERED: diphenhydrAMINE 50 MG/ML 1 ML VIAL IVP PRN (21:29)
[2024-08-14] MEDS: SODIUM CHLORIDE 0.9% 1,000 ML IV ONE (21:36)
[2024-08-14] MEDS: HYDROmorphone 0.5 MG/0.5 ML SYRINGE IVP PRN (21:42)
[2024-08-14] MEDS: MEPERIDINE 50 MG/ML SYRINGE IVP STA (22:06)
[2024-08-14] MEDS: BENZOCAINE/MENTHOL LOZENG 1 EACH LOZENGE MUCOUS MEM PRN (22:57)
[2024-08-14] MEDS: metroNIDAZOLE-NS PMX 500 MG in SALINE 1 100ML.BAG IVPB SCH (23:27)
[2024-08-15 06:06] LABS: Glucose,Whole Blood 134 mg/dL (70-110)
[2024-08-15 09:10] LABS: Basophils # (A) 0.03 10*3/uL (0.00-0.10); Basophils % (A) 0.3 %; Eosinophils % (A) 1.1 %; HCT 36.2 % (37.2-46.3); HGB 11.8 g/dL (12.0-15.0); Lymphocytes # (A) 0.49 10*3/uL (0.90-5.00); Lymphocytes % (A) 5.3 %; MCH 29.6 pg (27.0-32.0); MCHC 32.6 g/dL (32.0-37.0); Mean Platelet Volume 9.8 fL (9.5-12.2); Monocytes # (A) 0.37 10*3/uL (0.20-1.00); Neutrophils # (A) 8.24 10*3/uL (1.80-7.70); Neutrophils % (A) 89.1 %; Platelet Count 195 10*3/uL (140-440); RBC 3.98 10*6/uL (4.10-5.20); RDW 14.5 % (11.5-14.5); WBC 9.25 10*3/uL (4.50-10.00)
[2024-08-15 09:33] LABS: African American GFR (CKD) >90 (>60 ml/min/1.73 sqM); Anion Gap 9 mmol/L; Blood Urea Nitrogen 6 mg/dL (7-17); Calcium 8.6 mg/dL (8.4-10.2); Carbon Dioxide 21 mmol/L (22-30); Chloride 107 mmol/L (98-107); Glucose 136 mg/dL (74-99); Non-African American GFR(CKD) >90 (>60 ml/min/1.73 sqM); Potassium 4.1 mmol/L (3.5-5.1); Sodium 137 mmol/L (137-145)
[2024-08-15] MEDS: FAMOTIDINE 20 MG/2 ML VIAL IV SCH (09:45)
[2024-08-15] MEDS: ALVIMOPAN 12 MG CAPSULE PO SCH (09:53)
--- NOTE | 2024-08-15 09:58 | P.PN ---
Subjective Progress Note Date: 08/15/24 CHIEF COMPLAINT: Sigmoid volvulus HISTORY OF PRESENT ILLNESS: The patient is a 54-year-old female status post low anterior resection for sigmoid volvulus, 08/14/2024 including extensive lysis of adhesions, surgery over 5-1/2 to 6 hours. Patient reports pain is tolerable however present. No passage of flatus. She is tolerating liquids this morning. Patient chose not to use JUDICIAL REPORTER pump or abdominal block. ROS: No reports of nausea and vomiting. No bowel movements. No fevers or chills. No new chest pain. No productive sputum PHYSICAL EXAM: VITAL SIGNS: Reviewed CONSTITUTIONAL: Well developed and in no acute distress. EYES: Conjuctivae without sclera icterus. Extraocular movements grossly intact. HEAD, EARS, NOSE, THROAT: Moist buccal mucosa. Head is atraumatic, normocephalic. Hears conversational speech. No nasal drainage. RESPIRATORY: Non-labored respirations and equal bilateral excursions. CARDIOVASCULAR: Palpable 2+ radial pulses. ABDOMEN: Abdominal binder present. Incisions clean dry intact. MUSCULOSKELETAL: No gross deformity of the lower extremities noted. No clubbi ng. No cyanosis. SKIN: Good skin turgor. Well perfused. NEUROLOGIC: Cranial nerves II through XII grossly intact. No focal or lateralizing signs. PSYCH: Appropriate affect. Alert and oriented to person, place and time. CLINICAL LABS: Reviewed. WBC normal. ASSESSMENT: 1. Sigmoid volvulus 2. Severe intra-abdominal adhesions 3. Personal history of hypercoagulable disorder PLAN: 1. Due to patient extensive surgery, discharge home pending passage of flatus and bowel movement. 2. Entereg protocol in place. 3. Patient has pre-existing history of hypercoagulable state will continue with heparin. However, will avoid NSAIDs due to gastric bypass and increased risk for bleeding. Dictation was produced using [employer] dictation software. Please excuse any grammatical, word or spelling errors. Objective - Vital Signs Vital signs: Vital Signs Temp 99.3 F 08/15/24 07:20 Pulse 71 08/15/24 07:20 Resp 18 08/15/24 07:20 BP 99/50 08/15/24 07:20 Pulse Ox 93 L 08/15/24 07:20 FiO2 Intake & Output 08/14/24 08/15/24 08/15/24 18:59 06:59 18:59 Intake Total 2450 Output Total 930 Balance 2450 -930 Intake: IV 2450 Output: Urine 880 Uretheral ([place]) 300 Estimated Blood Loss 50 Other: Voiding Method Indwelling Catheter - Labs CBC & Chem 7: 08/15/24 08:56 08/15/24 08:56 Labs: Abnormal Lab Results - Last 24 Hours (Table) 08/15/24 08/15/24 08/15/24 Range/Units 06:05 08:56 08:56 RBC 3.98 L (4.10-5.20) 10*6/uL Hgb 11.8 L (12.0-15.0) g/dL Hct 36.2 L (37.2-46.3) % Neutrophils # 8.24 H (1.80-7.70) 10*3/uL Lymphocytes # 0.49 L (0.90-5.00) 10*3/uL Carbon Dioxide 21 L (22-30) mmol/L BUN 6 L (7-17) mg/dL Glucose 136 H (74-99) mg/dL POC Glucose (mg/dL) 134 H (70-110) mg/dL
[2024-08-15 11:42] LABS: Glucose,Whole Blood 142 mg/dL (70-110)
[2024-08-15 16:56] LABS: Glucose,Whole Blood 126 mg/dL (70-110)
[2024-08-15 20:14] LABS: Glucose,Whole Blood 153 mg/dL (70-110)
[2024-08-16 06:26] LABS: Glucose,Whole Blood 114 mg/dL (70-110)
--- NOTE | 2024-08-16 10:32 | P.PN ---
Subjective Progress Note Date: 08/16/24 CHIEF COMPLAINT: Sigmoid volvulus HISTORY OF PRESENT ILLNESS: The patient is a 54-year-old female status post low anterior resection for sigmoid volvulus, 08/14/2024 including extensive lysis of adhesions, surgery over 5-1/2 to 6 hours. She is postop day 2. No passage of flatus. She has appropriate incisional pain on the left side due to multiple incisions. No bowel movements yet. ROS: No reports of nausea and vomiting. No bowel movements. No fevers or chills. No new chest pain. No productive sputum PHYSICAL EXAM: VITAL SIGNS: Reviewed CONSTITUTIONAL: Well developed and in no acute distress. EYES: Conjuctivae without sclera icterus. Extraocular movements grossly intact. HEAD, EARS, NOSE, THROAT: Moist buccal mucosa. Head is atraumatic, normocephalic. Hears conversational speech. No nasal drainage. RESPIRATORY: Non-labored respirations and equal bilateral excursions. CARDIOVASCULAR: Palpable 2+ radial pulses. ABDOMEN: Abdominal binder present. Incisions clean dry intact. MUSCULOSKELETAL: No gross deformity of the lower extremities noted. No clubbing. No cyanosis. SKIN: Good skin turgor. Well perfused. NEUROLOGIC: Cranial nerves II through XII grossly intact. No focal or lateralizing signs. PSYCH: Appropriate affect. Alert and oriented to person, place and time. CLINICAL LABS: Reviewed. Labs today pending. Labs yesterday were stable. ASSESSMENT: 1. Sigmoid volvulus 2. Severe intra-abdominal adhesions 3. Personal history of hypercoagulable disorder PLAN: 1. She is on Entereg including scheduled simethicone and is awaiting passage of flatus and/or bowel movement. 2. Continue diet 3. CBC stat ordered today to monitor hemoglobin and signs of bleeding Dictation was produced using [employer] dictation software. Please excuse any grammatical, word or spelling errors. Objective - Vital Signs Vital signs: Vital Signs Temp 98.2 F 08/16/24 09:26 Pulse 71 08/16/24 08:06 Resp 18 08/16/24 08:06 BP 112/72 08/16/24 08:06 Pulse Ox 95 08/16/24 08:06 FiO2 Intake & Output 08/15/24 08/16/24 08/16/24 18:59 06:59 18:59 Output Total 1689 600 Balance -1689 -600 Output: Urine 650 600 Straight 550 600 Post Void Residual 1039 Other: Voiding Method Toilet # Voids 2 - Labs CBC & Chem 7: 08/15/24 08:56 08/15/24 08:56 Labs: Abnormal Lab Results - Last 24 Hours (Table) 08/15/24 08/15/24 08/15/24 Range/Units 11:40 16:53 20:12 POC Glucose (mg/dL) 142 H 126 H 153 H (70-110) mg/dL 08/16/24 Range/Units 06:25 POC Glucose (mg/dL) 114 H (70-110) mg/dL
[2024-08-16 11:32] LABS: Basophils # (A) 0.03 10*3/uL (0.00-0.10); Basophils % (A) 0.4 %; Eosinophils # (A) 0.36 10*3/uL (0.04-0.35); Eosinophils % (A) 4.6 %; HGB 10.5 g/dL (12.0-15.0); Lymphocytes # (A) 1.04 10*3/uL (0.90-5.00); Lymphocytes % (A) 13.3 %; MCH 29.7 pg (27.0-32.0); MCHC 32.8 g/dL (32.0-37.0); MCV 90.7 fL (80.0-97.0); Mean Platelet Volume 11.1 fL (9.5-12.2); Monocytes % (A) 6.4 %; Neutrophils # (A) 5.86 10*3/uL (1.80-7.70); Neutrophils % (A) 74.7 %; Platelet Count 137 10*3/uL (140-440); RBC 3.53 10*6/uL (4.10-5.20); RDW 14.8 % (11.5-14.5); WBC 7.84 10*3/uL (4.50-10.00)
[2024-08-16 12:25] LABS: Glucose,Whole Blood 124 mg/dL (70-110)
[2024-08-16 16:51] LABS: Glucose,Whole Blood 108 mg/dL (70-110)
[2024-08-16] MEDS: TAMSULOSIN 0.4 MG CAP.ER.24H PO STA (17:47)
[2024-08-16 20:19] LABS: Glucose,Whole Blood 129 mg/dL (70-110)
[2024-08-16] MEDS: HEPARIN SODIUM,PORCINE 5,000 UNIT/ML 1 ML VIAL SQ SCH (22:17)
[2024-08-17 06:14] LABS: Glucose,Whole Blood 124 mg/dL (70-110)
[2024-08-17 07:53] VITALS: BP 138/72; PULSE 69; RESP 17; TEMP 98.1
[2024-08-17 08:07] LABS: Basophils # (A) 0.02 10*3/uL (0.00-0.10); Basophils % (A) 0.3 %; Eosinophils # (A) 0.35 10*3/uL (0.04-0.35); Eosinophils % (A) 5.4 %; HCT 34.9 % (37.2-46.3); HGB 11.1 g/dL (12.0-15.0); Lymphocytes # (A) 1.04 10*3/uL (0.90-5.00); MCH 29.5 pg (27.0-32.0); MCHC 31.8 g/dL (32.0-37.0); MCV 92.8 fL (80.0-97.0); Mean Platelet Volume 10.4 fL (9.5-12.2); Monocytes # (A) 0.39 10*3/uL (0.20-1.00); Neutrophils # (A) 4.67 10*3/uL (1.80-7.70); Platelet Count 175 10*3/uL (140-440); RBC 3.76 10*6/uL (4.10-5.20); RDW 14.6 % (11.5-14.5); WBC 6.49 10*3/uL (4.50-10.00)
[2024-08-17 10:12] LABS: Glucose,Whole Blood 131 mg/dL (70-110)
[2024-08-17 11:22] LABS: Glucose,Whole Blood 129 mg/dL (70-110)
--- NOTE | 2024-08-17 13:53 | P.PN ---
Subjective Progress Note Date: 08/17/24 CHIEF COMPLAINT: Sigmoid volvulus HISTORY OF PRESENT ILLNESS: The patient is a 54-year-old female status post low anterior resection for sigmoid volvulus, 08/14/2024 including extensive lysis of adhesions, surgery over 5-1/2 to 6 hours. She is postop day 3. She is having bowel movements. She reports diarrhea. ROS: No reports of nausea and vomiting. No fevers or chills. No new chest pain. No productive sputum PHYSICAL EXAM: VITAL SIGNS: Reviewed CONSTITUTIONAL: Well developed and in no acute distress. EYES: Conjuctivae without sclera icterus. Extraocular movements grossly intact. HEAD, EARS, NOSE, THROAT: Moist buccal mucosa. Head is atraumatic, normocephalic. Hears conversational speech. No nasal drainage. RESPIRATORY: Non-labored respirations and equal bilateral excursions. CARDIOVASCULAR: Palpable 2+ radial pulses. ABDOMEN: Abdominal binder present. Incisions clean dry intact. MUSCULOSKELETAL: No gross deformity of the lower extremities noted. No clubbing. No cyanosis. SKIN: Good skin turgor. Well perfused. NEUROLOGIC: Cranial nerves II through XII grossly intact. No focal or lateralizing signs. PSYCH: Appropriate affect. Alert and oriented to person, place and time. CLINICAL LABS: Reviewed. Hemoglobin stable from 10.5-11.1. White blood cell count normal. ASSESSMENT: 1. Sigmoid volvulus 2. Severe intra-abdominal adhesions 3. Personal history of hypercoagulable disorder PLAN: 1. Patient stable for discharge as she has resumed bowel function 2. Close outpatient follow-up via telehealth including person the bariatric center Dictation was produced using [employer] dictation software. Please excuse any grammatical, word or spelling errors. Objective - Vital Signs Vital signs: Vital Signs Temp 98.1 F 08/17/24 07:52 Pulse 69 08/17/24 07:52 Resp 17 08/17/24 07:52 BP 138/72 08/17/24 07:52 Pulse Ox 95 08/17/24 07:52 FiO2 Intake & Output 08/16/24 08/17/24 08/17/24 18:59 06:59 18:59 Output Total 1100 400 Balance -1100 -400 Output: Urine 1100 400 Other: Voiding Method Toilet # Voids 1 # Bowel Movements 1 - Labs CBC & Chem 7: 08/17/24 07:46 08/15/24 08:56 Labs: Abnormal Lab Results - Last 24 Hours (Table) 08/13/24 08/16/24 08/17/24 Range/Units 14:37 20:17 06:12 RBC (4.10-5.20) 10*6/uL Hgb (12.0-15.0) g/dL Hct (37.2-46.3) % MCHC (32.0-37.0) g/dL RDW (11.5-14.5) % POC Glucose (mg/dL) 131 H 129 H 124 H (70-110) mg/dL 08/17/24 08/17/24 Range/Units 07:46 11:21 RBC 3.76 L (4.10-5.20) 10*6/uL Hgb 11.1 L (12.0-15.0) g/dL Hct 34.9 L (37.2-46.3) % MCHC 31.8 L (32.0-37.0) g/dL RDW 14.6 H (11.5-14.5) % POC Glucose (mg/dL) 129 H (70-110) mg/dL
== END 2024-08-17 14:04 | disposition home or self-care (01) | DRG 345 ==
LOC: ORWHC2ENDO 09:10 → 4SSUR 09:11 → ORWHC2ENDO 09:11 → 4SSUR 11:15
PROVIDERS: ADMIT Surgery Plastic and Reconstructive Surgery; ATTEND Surgery Plastic and Reconstructive Surgery
PROC: 0D9N8ZZ Drainage of Sigmoid Colon, Via Natural or Artificial Opening Endoscopic (ICD-10-PCS; principal; 2024-08-13 10:05)
DX: K56.2 Volvulus (principal); D68.51 Activated protein C resistance; H91.90 Unspecified hearing loss, unspecified ear; K66.0 Peritoneal adhesions (postprocedural) (postinfection); K64.0 First degree hemorrhoids; Z90.49 Acquired absence of other specified parts of digestive tract; Z87.891 Personal history of nicotine dependence; Z95.5 Presence of coronary angioplasty implant and graft; Z79.02 Long term (current) use of antithrombotics/antiplatelets; Z79.899 Other long term (current) drug therapy; Z98.84 Bariatric surgery status
CPT/HCPCS: 45378; 80048; 80053; 85025; 86850; 86900; 86901

== ENCOUNTER → 2024-08-26 | Outpatient (CLI) | payer MEDICARE ==
[2024-08-26 15:32] VITALS: BP 114/64; PULSE 104; RESP 16; TEMP 98.3; BMI 41.0
--- NOTE | 2024-08-26 16:04 | P.BASOAP ---
Subjective Progress Note Date: 08/26/24 She is having bowel movements and passing flatus. No blood in stools. She is not eating much. She reports weakness. She is eating and it comes out. She reports LLQ pain. Incisions look good. She is using H2O2. She reports excruciating pain. She reports is constant. Have her get a CT scan. She is in pain and she wants to commit suicide. She reports taking water and protein and her abdomen is hard. CT scan. Referral for pain specialist. Objective - Vital Signs Vital signs: Vital Signs Temp 98.3 F 08/26/24 15:16 Pulse 104 H 08/26/24 15:16 Resp 16 08/26/24 15:16 BP 114/64 08/26/24 15:16 Pulse Ox FiO2 Intake & Output 08/25/24 08/26/24 08/26/24 18:59 06:59 18:59 Weight 95.254 kg Assessment/Plan Plan: Date: 08/26/24 Initial Weight: 140.432 kg Initial BMI: 60.4 Current Weight: 95.254 kg Current BMI: 41.0 Type of Surgery: Total Volume in Band: Previous Volume: Volume Removed: Volume Added: Band Size:
== END ==
LOC: BARWHC3 14:34
PROVIDERS: ATTEND Surgery Plastic and Reconstructive Surgery
DX: E66.01 Morbid (severe) obesity due to excess calories (principal); F12.90 Cannabis use, unspecified, uncomplicated; F17.200 Nicotine dependence, unspecified, uncomplicated; Z68.41 Body mass index [BMI] 40.0-44.9, adult; Z88.0 Allergy status to penicillin; Z88.2 Allergy status to sulfonamides; Z91.048 Other nonmedicinal substance allergy status; Z88.1 Allergy status to other antibiotic agents; Z91.041 Radiographic dye allergy status
CPT/HCPCS: 99211